=== PATIENT | male | born 1960 | race Caucasian/White ===

== ENCOUNTER → 2020-05-25 09:05 | Outpatient (CLI) | payer MEDICARE, MEDICAID, SELFPAY ==
--- NOTE | ~2020-05-25 | XR_ITS ---
EXAMINATION: XR shoulder LT min 2V DATE: 05/25/2020 10:27 INDICATION: Bilateral shoulder pain TECHNIQUE: AP internally and externally rotated, AP oblique externally rotated and axillary views of the left shoulder were obtained. COMPARISON: None FINDINGS: Normal alignment. No fracture.Mild glenohumeral and moderate acromioclavicular osteoarthritis. Moder ate lower cervical spondylosis. Soft tissues are unremarkable. IMPRESSION: Mild glenohumeral and moderate acromioclavicular osteoarthritis. Reviewed, dictated and finalized at location B.
--- NOTE | ~2020-05-25 | XR_ITS ---
EXAMINATION: XR shoulder RT min 2V DATE: 05/25/2020 10:27 INDICATION: Right shoulder pain TECHNIQUE: AP internally and externally rotated, AP oblique externally rotated and axillary views of the right shoulder were obtained. COMPARISON: None FINDINGS: Normal alignment. No fracture.Mild glenohumeral and mild to moderate acromioclavicular osteoarthriti s. Moderate cervical spondylosis. Soft tissues are unremarkable. Right lung is clear. IMPRESSION: Mild right glenohumeral and mild to moderate acromioclavicular osteoarthritis. Reviewed, dictated and finalized at location B.
--- NOTE | ~2020-05-25 | MR_ITS ---
EXAMINATION: MR cervical spine wo con DATE: 05/25/2020 09:54 INDICATION: Cervical radiculopathy. TECHNIQUE: Magnetic resonance imaging (MRI) of the cervical spine was performed without intravenous c ontrast. Sequences included sagittal T2-weighted FSE, sagittal STIR FSE, sagittal T1-weighted FSE, ax ial MERGE, and axial T2-weighted FSE. COMPARISON: None FINDINGS: There is 2 mm retrolisthesis of C3 on C4, C4 on C5, C5 on C6, and C6 on C7. There is mild k yphosis of cervical spine. Vertebral body heights are normal. There is mildly decreased disc height a t C3-C4 and moderately decreased disc height from C4-C5 through C6-C7. The spinal cord signal intensi ty is normal. The following disc levels are specifically discussed: C2-C3: There is a right central extrusion. There is no uncovertebral joint osteoarthritis. There is m ild bilateral facet joint osteoarthritis. There is no neural foraminal stenosis. There is mild centra l canal stenosis with ventral indentation of the spinal cord. C3-C4: The disc is bulging. There is mild right and severe left uncovertebral joint osteoarthritis. T here is mild bilateral facet joint osteoarthritis. There is mild right and moderate left neural graciela inal stenosis. There is mild central canal stenosis with ventral indentation of the spinal cord. C4-C5: The disc is bulging. There is moderate bilateral uncovertebral joint osteoarthritis. There is mild right and moderate left facet joint osteoarthritis. There is moderate and mild left neural graciela inal stenosis. There is mild central canal stenosis with ventral indentation of the spinal cord. C5-C6: The disc is bulging. There is severe bilateral uncovertebral joint osteoarthritis. There is mi ld bilateral facet joint osteoarthritis. There is moderate and mild left neural foraminal stenosis. T here is mild central canal stenosis with ventral indentation of spinal cord. C6-C7: The disc is bulging. There is severe bilateral uncovertebral joint osteoarthritis. There is mi ld right and moderate left facet joint osteoarthritis. There is mild right and moderate left neural f oraminal stenosis. There is mild central canal stenosis. C7-T1: The disc does not extend beyond the endplate margin. There is no uncovertebral joint osteoarth ritis. There is moderate bilateral facet joint osteoarthritis. There is no neural foraminal stenosis. There is no central canal stenosis. IMPRESSION: 1. Moderate cervical spondylosis. Reviewed, dictated and finalized at location A.
== END ==
PROVIDERS: PCP Family Medicine; Visit Provider Nurse Practitioner Adult Health
DX: M47.22 Other spondylosis with radiculopathy, cervical region (principal); M19.011 Primary osteoarthritis, right shoulder; M19.012 Primary osteoarthritis, left shoulder
CPT/HCPCS: 72141; 73030

== ENCOUNTER 2020-12-12 12:19 | Outpatient (CLI) | payer MEDICARE, SELFPAY ==
--- NOTE | ~2020-12-12 | CT_ITS ---
EXAMINATION: CT lung screening DATE: 12/12/2020 12:39 INDICATION: Personal history of tobacco dependence. TECHNIQUE: Computed tomography (CT) of the chest was performed without intravenous contrast. The dose -length product was 325.28 mGy-cm. Automated exposure control and iterative reconstruction technique were employed. COMPARISON: CT dated 05/26/2018 FINDINGS: Heart size normal. No significant pleural or pericardial effusion. No thoracic lymphadenopa thy. There is atherosclerosis of the aorta and coronary arteries. There is gynecomastia. The upper ab domen is unremarkable. There is a 3 mm right upper lobe nodule, image 34. There are a few additional small 2-3 mm nodules in the upper lobes. There is a 3 mm left lower lobe nodule, image 82. There are calcified granulomas of the left lower thorax. Mild thoracic spondylosis. IMPRESSION: 1. Lung-RADS category 2: Benign appearance or behavior. Continue annual screening with noncontrast lo w-dose chest CT in 12 months. Reviewed, dictated and finalized at location A. IMPRESSION: 1. Lung-RADS category 2: Benign appearance or behavior. Continue annual screeni ng with noncontrast low-dose chest CT in 12 months.
== END 2020-12-12 12:20 | disposition home or self-care (01) ==
PROVIDERS: PCP Family Medicine; Visit Provider Physician Assistant
DX: Z12.2 Encounter for screening for malignant neoplasm of respiratory organs (principal); Z87.891 Personal history of nicotine dependence
CPT/HCPCS: 71271

== ENCOUNTER → 2022-01-14 08:00 | Outpatient (CLI) | payer MEDICARE, SELFPAY ==
--- NOTE | ~2022-01-14 | CT_ITS ---
EXAMINATION: CT lung screening DATE: 01/14/2022 08:19 INDICATION: Personal history of tobacco dependence. Lung cancer screening. TECHNIQUE: Computed tomography (CT) of the chest was performed without intravenous contrast. Automate d exposure control and iterative reconstruction technique were employed. Exam dose: 363.62 mGy-cm to ata exam DLP. COMPARISON: 12/12/2020 CT lung screening FINDINGS: 3 mm anterior segment right upper lobe pulmonary nodule (series 4 image 50), stable since 12/12/2020 Stable approximately 2.8 mm left lower lobe pulmonary nodule (series 4 image 87), unchanged since 11/21. Occasional calcified pulmonary granulomas.. No new or developing pulmonary mass lesion is evident. No pulmonary infiltrate or consolidation. Calcified left hilar nodes and a calcified hepatic granuloma, consistent with old granulomatous disea se. Very prominent coronary artery calcifications. Normal heart size. No thoracic aortic aneurysm. No hilar or mediastinal mass lesion or lymphadenopathy. Normal morphology of the included portions of the adrenal glands. Minimal bilateral gynecomastia. Severe degenerative disc disease at included C6-7. Minimal degenerative change of the thoracic spine. No suspicious osteolytic or osteoblastic lesions. IMPRESSION: Lung-RADS category 2: Benign appearance or behavior. Recommendation: Annual CT lung screening Reviewed, dictated and finalized at Location [facility]. Reviewed, dictated and finalized at location A.
== END ==
PROVIDERS: PCP Family Medicine; Visit Provider Family Medicine
DX: Z12.2 Encounter for screening for malignant neoplasm of respiratory organs (principal); Z87.891 Personal history of nicotine dependence
CPT/HCPCS: 71271

== ENCOUNTER 2022-10-08 10:35 | Emergency (ER) | payer MEDICARE, MEDICAID, SELFPAY ==
--- NOTE | ~2022-10-08 | XR_ITS ---
XR hip LT min 3V w AP pelvis DATE: 10/08/2022 12:11 INDICATION: Chronic left hip pain, increased 5 days ago. No injury. TECHNIQUE: AP pelvis. AP, lateral and crosstable lateral views of left hip COMPARISON: None FINDINGS: Incidentally noted is a prominent amount fecal material in the rectum and particularly the right colon. There is osteopenia. No pelvic fracture or bone destruction is evident. Normal alignment at the pubic symphysis and sacroi liac joints. No fracture, dislocation, avascular necrosis or bone destruction of the left hip. Mild left hip osteo arthritis. IMPRESSION: Mild left hip osteoid arthritis Osteopenia Reviewed, dictated and finalized at location L. [facility] [employer]
[2022-10-08 10:57] VITALS: BP 135/84; PULSE 86; RESP 18; TEMP 36.3; O2SAT 98
[2022-10-08] MEDS: MORPHINE SULFATE INJ (*CRX) 10 MG/ML AMP 4 MG IM (11:31)
--- NOTE | 2022-10-08 12:00 | PC.NURSE ---
Pt to xray.
[2022-10-08] MEDS: predniSONE 20 MG TABLET 40 MG PO (12:31)
--- NOTE | 2022-10-08 16:06 | ED.LOWEXIN ---
HPI - Extremity Injury (Lower) General Chief Complaint: Extremity Injury, Lower Stated Complaint: left hip pain Time Seen by Provider: 10/08/22 11:14 History of Present Illness HPI Narrative: Patient has chronic pain in his left hip and over the last week or so the pain has been increased, to the point where his usual oral medications are not helping, he called his primary care doctor as well as his pain doctor and they both told him to just go to the ER if he is unable to get in sooner. He states that the pain feels like the usual pain that he has in his left hip, where it seems to go up his back and down through the stump, however worse than usual. No new numbness or weakness. No skin changes. No fevers or chills Related Data Allergies Allergy/AdvReac Type Severity Reaction Status Date / Time No Known Allergies Allergy Verified 10/08/22 11:31 Review of Systems Review of Systems: CONST: No fever. HEENT: No sore throat C/V: No chest pain RESP: No cough GI: No nausea vomiting : No dysuria. M/S: Left hip pain SKIN: No rash. 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 PVD (peripheral vascular disease) Toe infection Type 2 diabetes mellitus with hyperglycemia, with long-term current use of insulin Surgical History Surgical History S/P amputation of limb Status post above-knee amputation of left lower extremity Status post amputation of toe Family History Family History Father Family history of diabetes mellitus in first degree relative Hypertension Family history of coronary artery disease Mother Family history of diabetes mellitus in first degree relative Sibling Family history of diabetes mellitus in first degree relative Other Diabetes mellitus Family history of cardiovascular disease Social History Social History Smoking packs per day: 1.5 Smoking cigarettes per day: 30.0 Years smoked: 47 Smoking pack-years: 70.50 Smoking status: Current every day smoker Tobacco type: cigarettes Second hand tobacco smoke exposure: No Alcohol intake: never Substance use: never Substance use type: does not use Additional living arrangements comments: girlfriend Gender identity (if verbalized by the patient): Male Sexual Orientation (if Verbalized by the Patient): Straight or Heterosexual Exam Narrative: EXAMINATION OF ORGAN SYSTEMS/BODY AREAS: Constitutional: Vital signs per nursing GENERAL: Nontoxic appearing but does appear to be having some pain HEAD: Normal with no signs of head trauma. EYES: EOMI, conjunctiva normal ENT: Hearing grossly intact LUNGS: Nonlabored breathing. HEART: [Regular rate and rhythm] ABD: [Soft], non[tender to palpation] EXT: Normal range of motion painless passive range of motion of the left hip, no obvious swelling or deformity SKIN: [No rashes or lesions, no warmth or erythema.] NEURO: [Alert and oriented x 3. No gross focal sensory or strength deficits.] PSYCH: Normal affect Course Vital Signs Vital signs: Vital Signs Temperature 97.4 F L 10/08/22 10:57 Pulse Rate 86 10/08/22 10:57 Respiratory Rate 18 10/08/22 10:57 Blood Pressure 135/84 10/08/22 10:57 Pulse Oximetry 98 10/08/22 10:57 Oxygen Delivery Room Air 10/08/22 10:57 Temperature 97.4 F L 10/08/22 10:57 Pulse Rate 86 10/08/22 10:57 Respiratory Rate 18 10/08/22 10:57 Blood Pressure 135/84 10/08/22 10:57 Pulse Oximetry 98 10/08/22 10:57 Oxygen Delivery Room Air 10/08/22 10:57
== END 2022-10-08 12:38 | disposition home or self-care (01) ==
PROVIDERS: Emergency Provider Emergency Medicine; PCP Family Medicine
DX: M25.552 Pain in left hip (principal); G89.29 Other chronic pain; I10 Essential (primary) hypertension; E78.5 Hyperlipidemia, unspecified; E03.9 Hypothyroidism, unspecified; E11.51 Type 2 diabetes mellitus with diabetic peripheral angiopathy without gangrene; I73.9 Peripheral vascular disease, unspecified; Z79.4 Long term (current) use of insulin; Z89.612 Acquired absence of left leg above knee; F17.210 Nicotine dependence, cigarettes, uncomplicated; M16.12 Unilateral primary osteoarthritis, left hip; M85.88 Other specified disorders of bone density and structure, other site
CPT/HCPCS: 73502; 96372; 99283; J2270; J7512

== ENCOUNTER 2022-10-12 00:55 | Emergency (ER) | payer MEDICARE, MEDICAID, SELFPAY ==
[2022-10-12] VITALS (7 sets, daily range): BP systolic 127–160; BP diastolic 81–100; PULSE 95–102; RESP 16–18; TEMP 36.7; O2SAT 97–100
[2022-10-12] MEDS: HYDROmorphone HCL INJ (*CRX) 1 MG/ML SYR IM (03:07)
[2022-10-12] MEDS: KETOROLAC 30 MG/ML VIAL (*BKC) IM (03:07)
[2022-10-12] MEDS: ORPHENADRINE CITRATE 100 MG TABLET.ER PO (03:07)
--- NOTE | 2022-10-12 03:09 | ED.GENADULT ---
HPI - General Adult General Chief complaint: Extremity Problem,Nontraumatic Stated complaint: Left hip pain Time Seen by Provider: 10/12/22 02:54 History of Present Illness HPI narrative: Patient is a 62-year-old gentleman who presents the emergency department with chief complaint of left hip pain. The patient reports that he was seen in the emergency department a few days ago started on steroids and also has been taking his [place]. The patient reports he has a pain management doctor that writes his [place] and reports that has had no fever no trauma. The patient had plain film x-rays that showed no evidence of fracture but did show evidence of arthritis. Related Data Allergies Allergy/AdvReac Type Severity Reaction Status Date / Time No Known Allergies Allergy Verified 10/12/22 02:56 Review of Systems Review of Systems: A 10 system review of systems was completed on the patient and is negative except for what is stated in the HPI. Nursing and ancillary documentation was reviewed. 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 PVD (peripheral vascular disease) Toe infection Type 2 diabetes mellitus with hyperglycemia, with long-term current use of insulin Surgical History Surgical History S/P amputation of limb Status post above-knee amputation of left lower extremity Status post amputation of toe Family History Family History Father Family history of diabetes mellitus in first degree relative Hypertension Family history of coronary artery disease Mother Family history of diabetes mellitus in first degree relative Sibling Family history of diabetes mellitus in first degree relative Other Diabetes mellitus Family history of cardiovascular disease Social History Social History Smoking packs per day: 1.5 Smoking cigarettes per day: 30.0 Years smoked: 47 Smoking pack-years: 70.50 Smoking status: Current every day smoker Tobacco type: cigarettes Second hand tobacco smoke exposure: No Alcohol intake: never Substance use: never Substance use type: does not use Living arrangements: with family Additional living arrangements comments: girlfriend Occupation/Education: other Gender identity (if verbalized by the patient): Male Sexual Orientation (if Verbalized by the Patient): Straight or Heterosexual Exam Narrative: GENERAL: Well-appearing, well-nourished, and in no acute distress. HEAD: Normocephalic, atraumatic. EYES: PERRLA and EOMI. ENT: Nares clear, no rhinorrhea or epistaxis. Mucous membranes moist. NECK: Supple. CHEST: Clear to auscultation. No respiratory distress. HEART: Regular rate and rhythm. No murmur heard. Normal peripheral pulses. ABDOMEN: Soft, nontender, nondistended, normal active bowel sounds. EXTREMITIES: Normal range of motion. No edema. There is a above-knee amputation of the left lower extremity. There is tenderness to palpation in the left SI joint SKIN: Warm, dry, no rash. NEURO: No focal deficits. Alert and oriented x3. PSYCH: Normal mood and affect. Course Vital Signs Vital signs: Vital Signs Temperature 36.7 C 10/12/22 01:00 Pulse Rate 102 H 10/12/22 01:00 Respiratory Rate 18 10/12/22 01:00 Blood Pressure 127/88 10/12/22 01:00 Pulse Oximetry 97 10/12/22 01:00 Oxygen Delivery Room Air 10/12/22 01:00 Temperature 36.7 C 10/12/22 01:00 Pulse Rate 102 H 10/12/22 01:00 Respiratory Rate 18 10/12/22 01:00 Blood Pressure 153/100 H 10/12/22 03:01 Pulse Oximetry 97 10/12/22 03:01
== END 2022-10-12 04:27 | disposition home or self-care (01) ==
PROVIDERS: Emergency Provider Emergency Medicine; PCP Family Medicine
DX: M54.32 Sciatica, left side (principal); M16.12 Unilateral primary osteoarthritis, left hip; I10 Essential (primary) hypertension; E78.5 Hyperlipidemia, unspecified; E11.51 Type 2 diabetes mellitus with diabetic peripheral angiopathy without gangrene; I73.9 Peripheral vascular disease, unspecified; E03.9 Hypothyroidism, unspecified; Z89.612 Acquired absence of left leg above knee; Z89.429 Acquired absence of other toe(s), unspecified side; F17.210 Nicotine dependence, cigarettes, uncomplicated; Z79.4 Long term (current) use of insulin; Z79.85 Long-term (current) use of injectable non-insulin antidiabetic drugs; Z79.82 Long term (current) use of aspirin
CPT/HCPCS: 96372; 99284; A9270; J1170; J1885

== ENCOUNTER → 2023-01-16 07:36 | Outpatient (CLI) | payer MEDICARE, SELFPAY ==
--- NOTE | ~2023-01-16 | CT_ITS ---
CT Scan of the Chest without Contrast: Clinical Indication: Lung cancer screening, personal history of tobacco dependence Technique: Contiguous sections were acquired throughout the chest without intravenous contrast. Dose reduction technique was used on this scan by utilizing automated exposure control and iterative recon struction technique. The dose-length product (DLP) was 272.09 mGy-cm. COMPARISON: 01/14/2022, 12/12/2020 Findings: There is no evidence of any significant mediastinal, hilar or axillary lymphadenopathy. Calcified lef t hilar lymph nodes are present. Extensive coronary artery calcifications are present. There is no evidence of pleural or pericardial effusion. Several scattered 2 mm pulmonary nodules are unchanged. Calcified granulomas are noted. Images through the upper abdomen reveal no abnormalities. Impression: Lung RADS 2: Benign appearance. 12 month follow-up screening CT advised. Reviewed, dictated and finalized at [facility]. Impression: Lung RADS 2: Benign appearance. 12 month follow-up screening CT advised.
== END ==
PROVIDERS: PCP Family Medicine; Visit Provider Physician Assistant
DX: Z12.2 Encounter for screening for malignant neoplasm of respiratory organs (principal); F17.210 Nicotine dependence, cigarettes, uncomplicated
CPT/HCPCS: 71271

== ENCOUNTER 2023-05-06 04:07 | Day surgery (SDC) | payer MEDICARE, MEDICAID, SELFPAY ==
[2023-04-22 14:03] VITALS: BMI 32.5
[2023-05-06 07:18] VITALS: BP 134/94; PULSE 63; RESP 18; TEMP 36.1; O2SAT 99
--- NOTE | 2023-05-06 07:20 | WPDANESEPPF ---
Anes - Initial Pre Proc Eval Procedure: Operation Date: 05/06/23 08:15 Proposed Procedures p Screening Colonoscopy - Jose Guevara MD Date/Time: 05/06/23 07:20 Surgeon: Jose Guevara MD Pre Op Diagnosis: neoplasm screening Patient Data Age: 62 Gender: M Height: 1.88 m Weight: 115 kg Allergies Allergy/AdvReac Type Severity Reaction Status Date / Time No Known Allergies Allergy Verified 05/06/23 07:13 Home Medications Medication Instructions Recorded Confirmed Type hydrocodone 5 mg-acetaminophen 325 1 tablet PO Q8H PRN pain #60 tabs 04/27/20 04/22/23 Rx mg tablet blood sugar diagnostic #300 ea 04/12/21 04/22/23 Rx insulin glargine 100 unit/mL See Rx Instructions subcut 05/24/21 04/22/23 Rx subcutaneous solution (Lantus .COMPLEX #10 mL U-100 Insulin) insulin lispro 100 unit/mL 1 sliding scale dose subcut 05/24/21 04/22/23 Rx subcutaneous solution (Humalog USEASDIRECTD #10 mL U-100 Insulin) sertraline 100 mg tablet See Rx Instructions .Route 07/04/22 04/22/23 Rx .COMPLEX #90 tabs blood sugar diagnostic (Blood #300 ea 09/16/22 04/22/23 Rx Glucose Test strips) dulaglutide 1.5 mg/0.5 mL 1.5 mg (0.5 mL) subcut WEEKLY #6 mL 10/06/22 04/22/23 Rx subcutaneous pen injector (Trulicity) diclofenac potassium 50 mg tablet See Rx Instructions .Route 11/20/22 04/22/23 Rx .COMPLEX #30 tabs orphenadrine citrate 100 mg 100 mg PO Q12H #30 tabs 12/17/22 04/22/23 Rx tablet,extended release amlodipine 10 mg tablet See Rx Instructions .Route 12/23/22 04/22/23 Rx .COMPLEX #100 tabs atorvastatin 80 mg tablet See Rx Instructions .Route 12/23/22 04/22/23 Rx .COMPLEX #100 tabs hydrochlorothiazide 25 mg tablet See Rx Instructions .Route 12/23/22 04/22/23 Rx .COMPLEX #100 tabs lisinopril 30 mg tablet See Rx Instructions .Route 12/23/22 04/22/23 Rx .COMPLEX #200 tabs sodium,potassium,mag sulfates 17.5 See Rx Instructions PO .COMPLEX 01/23/23 04/22/23 Rx gram-3.13 gram-1.6 gram oral soln #354 mL (Suprep Bowel Prep Kit) empagliflozin 25 mg tablet 25 mg PO DAILY 02/11/23 04/22/23 History (Jardiance) levothyroxine 112 mcg tablet See Rx Instructions .Route 03/18/23 04/22/23 Rx .COMPLEX #200 tabs Patient hx anesthesia problems: none Family hx anesthesia problems: none Results Review: All pre-operative results and documents have been reviewed as part of the pre-operative evaluation. 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 PVD (peripheral vascular disease) Toe infection Type 2 diabetes mellitus with hyperglycemia, with long-term current use of insulin Surgical History Surgical History S/P amputation of limb Status post above-knee amputation of left lower extremity Status post amputation of toe Family History Family History Father Family history of diabetes mellitus in first degree relative Hypertension Family history of coronary artery disease Mother Family history of diabetes mellitus in first degree relative Sibling Family history of diabetes mellitus in first degree relative Other Diabetes mellitus Family history of cardiovascular disease Social History Social History Smoking packs per day: 1.5 Smoking cigarettes per day: 30.0 Years smoked: 50 Smoking pack-years: 75.00 Smoking status: Current every day smoker Tobacco type: cigarettes Second hand tobacco smoke exposure: No Alcohol intake: never Substance use: current Substance use type: marijuana Living arrangements: with family Daron mead
--- NOTE | 2023-05-06 07:31 | PM.HPGS ---
History of Present Illness History of Present Illness Consent: Risks, benefits, and alternatives have been discussed and questions answered. Patient agrees to proceed with procedure. Chief complaint: neoplasm screening Narrative: Jose Mckinney Jr. is a 62 year old male Presents for screening colonoscopy. Patient's current weight appetite and bowel movements are normal. Patient denies abdominal pain. He has had no bleeding. Family history noncontributory. Patient states he had a previous colonoscopy more than 10 years ago and is advised to return today for screening. Past medical history is significant for diabetes. He has a prior left AKA. Review of Systems Review of Systems: Review of systems noncontributory. [facility] Past Medical History Medical History Acute kidney injury Chronic pain of both shoulders Chronic, continuous use of opioids Essential hypertension HLD (hyperlipidemia) Hypothyroidism Leukocytosis longterm (current) use of insulin PVD (peripheral vascular disease) Toe infection Type 2 diabetes mellitus with hyperglycemia, with long-term current use of insulin Surgical History Surgical History S/P amputation of limb Status post above-knee amputation of left lower extremity Status post amputation of toe Family History Family History Father Family history of diabetes mellitus in first degree relative Hypertension Family history of coronary artery disease Mother Family history of diabetes mellitus in first degree relative Sibling Family history of diabetes mellitus in first degree relative Other Diabetes mellitus Family history of cardiovascular disease Social History Social History Smoking packs per day: 1.5 Smoking cigarettes per day: 30.0 Years smoked: 50 Smoking pack-years: 75.00 Smoking status: Current every day smoker Tobacco type: cigarettes Second hand tobacco smoke exposure: No Alcohol intake: never Substance use: current Substance use type: marijuana Living arrangements: with family Additional living arrangements comments: girlfriend Occupation/Education: other Gender identity (if verbalized by the patient): Male Sexual Orientation (if Verbalized by the Patient): Straight or Heterosexual Spiritual care concerns: No Meds Home Medications and Allergies Home Medications Medication Instructions Recorded Confirmed Type hydrocodone 5 mg-acetaminophen 325 1 tablet PO Q8H PRN pain #60 tabs 08/06/20 08/01/23 Rx mg tablet blood sugar diagnostic #300 ea 04/12/21 04/22/23 Rx insulin glargine 100 unit/mL See Rx Instructions subcut 05/24/21 04/22/23 Rx subcutaneous solution (Lantus .COMPLEX #10 mL U-100 Insulin) insulin lispro 100 unit/mL 1 sliding scale dose subcut 05/24/21 04/22/23 Rx subcutaneous solution (Humalog USEASDIRECTD #10 mL U-100 Insulin) sertraline 100 mg tablet See Rx Instructions .Route 07/04/22 04/22/23 Rx .COMPLEX #90 tabs blood sugar diagnostic (Blood #300 ea 09/16/22 04/22/23 Rx Glucose Test strips) dulaglutide 1.5 mg/0.5 mL 1.5 mg (0.5 mL) subcut WEEKLY #6 mL 10/06/22 04/22/23 Rx subcutaneous pen injector (Trulicity) diclofenac potassium 50 mg tablet See Rx Instructions .Route 11/20/22 04/22/23 Rx .COMPLEX #30 tabs orphenadrine citrate 100 mg 100 mg PO Q12H #30 tabs 12/17/22 04/22/23 Rx tablet,extended release amlodipine 10 mg tablet See Rx Instructions .Route 12/23/22 04/22/23 Rx .COMPLEX #100 tabs atorvastatin 80 mg tablet See Rx Instructions .Route 12/23/22 04/22/23 Rx .COMPLEX #100 tabs hydrochlorothiazide 25 mg tablet See Rx Instructions .Route 12/23/22 04/22/23 Rx .COMPLEX #100 tabs lisinopril 30 mg tablet See Rx Instructions .Route
[2023-05-06] MEDS: LACTATED RINGERS 1,000 ML 150 ML IV CONT (07:32)
[2023-05-06 07:35] LABS: Glucose Point of Care 212 mg/dl (65-105)
[2023-05-06 07:54] VITALS: BP 91/50; PULSE 77; RESP 18; O2SAT 99
[2023-05-06 08:03] LABS: Glucose Point of Care 222 mg/dl (65-105)
[2023-05-06 08:04] VITALS: BP 110/64; PULSE 80; RESP 16; O2SAT 98
[2023-05-06 08:14] VITALS: BP 138/74; PULSE 82; RESP 17; O2SAT 99
== END 2023-05-06 08:23 | disposition home or self-care (01) ==
PROVIDERS: PCP Family Medicine; Visit Provider Internal Medicine Gastroenterology
PROC: 0DJD8ZZ Inspection of Lower Intestinal Tract, Via Natural or Artificial Opening Endoscopic (ICD-10-PCS; CPT 45378; principal; 2023-05-06 08:15)
DX: Z12.11 Encounter for screening for malignant neoplasm of colon (principal); Z53.8 Procedure and treatment not carried out for other reasons; E11.51 Type 2 diabetes mellitus with diabetic peripheral angiopathy without gangrene; I10 Essential (primary) hypertension; E78.5 Hyperlipidemia, unspecified; E03.9 Hypothyroidism, unspecified; Z79.4 Long term (current) use of insulin; Z79.891 Long term (current) use of opiate analgesic; Z89.612 Acquired absence of left leg above knee; F17.210 Nicotine dependence, cigarettes, uncomplicated; F12.90 Cannabis use, unspecified, uncomplicated; Z79.899 Other long term (current) drug therapy; Z79.84 Long term (current) use of oral hypoglycemic drugs
CPT/HCPCS: G0121; 82948; J2704; J7120

== ENCOUNTER 2024-01-20 15:47 | Outpatient (CLI) | payer MEDICARE, MEDICAID, SELFPAY ==
--- NOTE | ~2024-01-20 | XR_ITS ---
XR chest 2V 01/20/2024 16:02 Indication: Shortness of breath and cough Procedure: 2 view chest Comparison: No prior studies for comparison. Findings: Borderline heart size. Mild interstitial edema. Small pleural effusions. No pneumothorax. N o acute osseous abnormality. Impression: 1: Mild interstitial edema. 2: Small pleural effusions. Reviewed, dictated and finalized at location B. Impression: 1: Mild interstitial edema. 2: Small pleural effusions.
== END 2024-01-20 15:48 ==
PROVIDERS: PCP Family Medicine; Visit Provider Registered Nurse
DX: R06.02 Shortness of breath (principal); R05.9 Cough, unspecified; J90 Pleural effusion, not elsewhere classified
CPT/HCPCS: 71046

== ENCOUNTER 2024-02-03 09:18 | Outpatient (RCR) | payer MEDICARE, MEDICAID, SELFPAY ==
[2024-02-03 09:22] VITALS: BMI 30.6
[2024-02-03 10:10] VITALS: BMI 30.6
== END 2024-04-19 09:35 | disposition home or self-care (01) ==
LOC: ANHDMC 09:18
PROVIDERS: PCP Family Medicine; Visit Provider Internal Medicine
DX: E11.65 Type 2 diabetes mellitus with hyperglycemia (principal); E03.9 Hypothyroidism, unspecified; E78.5 Hyperlipidemia, unspecified; Z71.3 Dietary counseling and surveillance
CPT/HCPCS: 97802

== ENCOUNTER 2024-03-31 21:29 | Inpatient (IN) | payer MEDICARE, MEDICAID, SELFPAY ==
--- NOTE | ~2024-03-31 | XR_ITS ---
AP and lateral views of the right tibia/fibula Clinical History: Pain and swelling Findings: No acute fracture or dislocation is seen. There is severe degenerative change at the midfoo t/hindfoot articulations, with joint space narrowing, sclerosis, and probable malalignment and possib le early fragmentation. Tibiotalar joint is intact. Knee joint is intact.. Soft tissues are unremarka ble. Impression: Severe degenerative changes at the midfoot and hindfoot articulations, suggestive of Charcot foot. Reviewed, dictated and finalized at location M. Impression: Severe degenerative changes at the midfoot and hindfoot articulations, suggesti ve of Charcot foot.
--- NOTE | ~2024-03-31 | XR_ITS ---
Upright portable view of the abdomen Clinical history: NG tube placement Findings: NG tube is present, side port just above the GE junction. Bowel gas pattern is nonspecific. No evidence for obstruction or free air. No abnormal mass lesion or calcification is seen. Osseous s tructures are intact. Impression: NG tube side-port is just above the GE junction. Further advancement into the stomach advised. Reviewed, dictated and finalized at location M. Impression: NG tube side-port is just above the GE junction. Further advancement into the s tomach advised.
--- NOTE | ~2024-03-31 | US_ITS ---
EXAMINATION: US renal BI DATE: 04/01/2024 16:14 INDICATION: Elevated creatinine TECHNIQUE: Multiple ultrasound grayscale images of the kidneys were obtained. COMPARISON: None. FINDINGS: The right kidney measures 11.3 x 5.2 x 5 point cm. The left kidney measures 11.2 x 5.4 x 6.0 cm. The kidneys demonstrate normal echogenicity. There is no hydronephrosis in either kidney. No stones iden tified. There is a Hernandez catheter within the partially decompressed bladder which limits evaluation. There is some mild diffuse wall thickening of the bladder. IMPRESSION: 1. Normal kidneys without hydronephrosis. 2. Mild diffuse bladder wall thickening which may be due to partially decompressed state but could al so be seen with cystitis either acute or chronic. Reviewed, dictated and finalized at location A. IMPRESSION: 1. Normal kidneys without hydronephrosis. 2. Mild diffuse bladder wall thickening which may be due to partially decompres sed state but could also be seen with cystitis either acute or chronic.
--- NOTE | ~2024-03-31 | XR_ITS ---
Portable chest x-ray Comparison: 01/20/2024 Clinical History: Respiratory failure Findings: Endotracheal tube is in satisfactory position. Possible focal hazy opacities the periphera l left midlung. Right lung clear. Cardiomediastinal silhouette is stable. Bones and soft tissues are unremarkable. Impression: Questionable focal hazy opacities at the peripheral left midlung, possibly focal pneumonitis. ET tube in place. Reviewed, dictated and finalized at location . Impression: Questionable focal hazy opacities at the peripheral left midlung, possibly foca l pneumonitis. ET tube in place.
--- NOTE | ~2024-03-31 | US_ITS ---
EXAMINATION: US venous doppler LE RT DATE: 04/01/2024 16:08 INDICATION: Right lower limb swelling and erythema TECHNIQUE: Grayscale ultrasound images without and with compression and Doppler ultrasound images of the right lower extremity veins were obtained. COMPARISON: None. FINDINGS: The visualized portions of right common femoral vein, profunda (deep) femoral vein, femoral vein, pop liteal vein, peroneal trunk, posterior tibial veins, peroneal veins and greater saphenous vein outflo w are patent. IMPRESSION: 1. No deep venous thrombosis in the right lower limb. Reviewed, dictated and finalized at location A.
--- NOTE | ~2024-03-31 | XR_ITS ---
Portable chest x-ray Comparison: 04/01/2024 Clinical History: Respiratory failure Findings: Endotracheal tube and NG tube are in satisfactory positions. Lungs are clear, without foca l consolidation or pleural effusion. Cardiomediastinal silhouette is stable. Bones and soft tissues are unremarkable. Impression: Clear lungs. Support tubes, as above. Reviewed, dictated and finalized at location . Impression: Clear lungs. Support tubes, as above.
--- NOTE | ~2024-03-31 | XR_ITS ---
EXAMINATION: XR chest 1V portable DATE: 04/04/2024 05:44 INDICATION: Respiratory failure TECHNIQUE: frontal view of the chest was obtained. COMPARISON: Chest radiograph dated 04/03/2024 FINDINGS: Small calcified nodule at the left lower lung zone and calcified left hilar lymph nodes consistent wi th old granulomatous disease. No other airspace opacities, pulmonary edema, pleural effusion or pneum othorax. The cardiomediastinal silhouette is normal. IMPRESSION: 1. No acute cardiopulmonary disease. Reviewed, dictated and finalized at location A.
--- NOTE | ~2024-03-31 | XR_ITS ---
EXAMINATION: XR abdomen gastric tube rechec DATE: 04/01/2024 16:19 INDICATION: Orogastric tube placement. TECHNIQUE: An upright view of the abdomen was obtained. COMPARISON: Abdomen radiograph 04/01/2024 FINDINGS: The lower abdomen is excluded. The orogastric tube tip is in the stomach. IMPRESSION: 1. Orogastric tube tip in the stomach. Reviewed, dictated and finalized at location E.
--- NOTE | ~2024-03-31 | XR_ITS ---
EXAMINATION: XR chest 1V portable DATE: 04/03/2024 05:39 INDICATION: Respiratory failure TECHNIQUE: frontal view of the chest was obtained. COMPARISON: Chest radiograph dated 04/02/2024 FINDINGS: Mild increased interstitial pattern in the bilateral lower lungs with a few subtle peripheral Karena B-lines at the right lung base. Additional subtle opacities in the left lower lung zone which could r epresent additional pulmonary edema or pneumonia. No pleural effusion or pneumothorax. The cardiomedi astinal silhouette is normal. IMPRESSION: 1. Mild increased opacity at the bilateral lower lung zones most likely pulmonary edema with differen tial including pneumonia. Reviewed, dictated and finalized at location A. IMPRESSION: 1. Mild increased opacity at the bilateral lower lung zones most likely pulmona ry edema with differential including pneumonia.
[2024-03-31 21:34] VITALS: BP 117/59; PULSE 77; RESP 16; TEMP 36.6; O2SAT 99
--- NOTE | 2024-03-31 23:46 | ED.EXTPRO ---
HPI - Extremity Problem General Chief complaint: Extremity Problem,Nontraumatic <Mitch Osei PA-C - Last Filed: 04/01/24 02:11> Stated complaint: R leg pain <HI Albarran Last Filed: 04/01/24 02:11> Time Seen by Provider: 03/31/24 23:18 <HI Albarran Last Filed: 04/01/24 02:11> Source: patient <HI Albarran Filed: 04/01/24 02:11> Mode of arrival: ambulatory <HI Albarran Last Filed: 04/01/24 02:11> Limitations: no limitations <HI Albarran Last Filed: 04/01/24 02:11> History of Present Illness HPI Narrative: This is a 63-year-old male With PMH of insulin-dependent diabetes, HLD, HTN, CKD, left AKA, medication noncompliance who presents to the ED with chief complaint of right lower extremity redness and swelling for the past 1-2 weeks. patient reports that he has not been taking his insulin as prescribed. He has not been watching his diet either. Reports that the leg specific right foot is most painful. Denies fevers, chills, nausea, vomiting, abdominal pain, chest pain, cough shortness of breath, neck pain, syncope. <HI Albarran Last Filed: 04/01/24 02:11> Related Data Home medications: Home Medications Medication Instructions Recorded Confirmed furosemide 80 mg tablet 80 mg PO QAM 02/26/24 hydroxyzine HCl 50 mg tablet 50 mg PO QHS 02/26/24 sertraline 100 mg tablet 100 mg PO DAILY 02/26/24 <HI Albarran Last Filed: 04/01/24 02:11> Allergies/Adverse reactions: Allergies Allergy/AdvReac Type Severity Reaction Status Date / Time No Known Allergies Allergy Verified 03/31/24 21:31 <HI Albarran Last Filed: 04/01/24 02:11> Review of Systems Review of Systems: All systems as dictated in HPI <Mitch Osei PA-C - Last Filed: 04/01/24 02:11> [facility] Past Medical History Medical History: Medical History Acute kidney injury Chronic pain of both shoulders Chronic, continuous use of opioids Essential hypertension HLD (hyperlipidemia) Hypothyroidism 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 PVD (peripheral vascular disease) Toe infection Type 2 diabetes mellitus with hyperglycemia, with long-term current use of insulin <Mitch Osei PA-C - Last Filed: 04/01/24 02:11> Surgical History Surgical History: Surgical History S/P amputation of limb Status post above-knee amputation of left lower extremity Status post amputation of toe <Mitch Osei PA-C - Last Filed: 04/01/24 02:11> Family History Family History: Family History Father Family history of diabetes mellitus in first degree relative Hypertension Family history of coronary artery disease Mother Family history of diabetes mellitus in first degree relative Sibling Family history of diabetes mellitus in first degree relative Other Diabetes mellitus Family history of cardiovascular disease <Mitch Osei PA-C - Last Filed: 04/01/24 02:11> Social History Social History: Social History Smoking packs per day: 1.5 Smoking cigarettes per day: 30.0 Years smoked: 50 Smoking pack-years: 75.00 Smoking status: Current every day smoker Tobacco type: cigarettes Second hand tobacco smoke exposure: No Alcohol intake: never Substance use: current Substance use type: marijuana Lack of Transportation: No Lack of Food: Never True Current Housing: I Have Housing Concerned About Future Housing: No Difficulty Paying Gas/Electric Bills: No Difficulty Paying for Meds: No Currently Unemployed: No Education: High School Diploma/GED Difficulty w/ Childcare or Family Care: No Living arrangements: with family Additional living arrangements
[2024-03-31 23:56] VITALS: BP 129/65; PULSE 73; RESP 15; TEMP 36.7; O2SAT 98
[2024-04-01] VITALS (88 sets, daily range): BP systolic 53–144; BP diastolic 37–75; PULSE 66–93; RESP 14–100; TEMP 34.4–37.1; O2SAT 71–100; BMI 26.9
--- NOTE | 2024-04-01 | ECHO_ITS ---
Patient Info Name: Jose Mckinney Age: 63 years : 1960 Gender: Male Ht: 74 in Wt: 210 lbs BSA: 2.24 m2 HR: 74 bpm BP: 86 / 55 mmHg Heart Rhythm: Sinus Rhythm Technical Quality: Poor Exam Date: 04/01/2024 9:52 AM Exam Location: Echo Lab Patient Status: Inpatient Admit Date: 04/01/2024 Staff Ordering Physician: Jacek Romano MD Rehab Services Aide: Mono Chance RDCS Attending Provider: Charly Lynch MD Exam Type: CA echo dop color flow w con Study Info Indications - Syncope Complete two-dimensional, color flow and Doppler transthoracic echocardiogram is performed with contrast to opacify the left ventricle and to improve the deliniation of the left ventricle endocardial borders. Contrast/Agitated Saline Contrast/Ag. Saline: Definity Amount: 5.00 ml Existing IV Access: Yes Reason for Poor Study: poor echocardiographic windows Summary 1. Left ventricular chamber dimension is moderately enlarged. 2. Left ventricular systolic function is mildly reduced, estimated at 45-50%. 3. There is moderately increased left ventricular wall thickness. 4. The left ventricular diastolic function is grade I diastolic dysfunction. 5. The basal inferior wall, and mid inferior wall are hypokinetic. 6. The aortic root size at the sinus of Valsalva is mildly dilated. 7. Dilated inferior vena cava with >50% collapse upon inspiration consistent with elevated right atrial pressure, 15 mmHg. Left Ventricle Left ventricular chamber dimension is moderately enlarged. Left ventricular systolic function is mildly reduced, estimated at 45-50%. There is moderately increased left ventricular wall thickness. The left ventricular diastolic function is grade I diastolic dysfunction. The basal inferior wall, and mid inferior wall are hypokinetic. All other reeder appear normal. Right Ventricle Right ventricular chamber dimension is normal. Right ventricular systolic function is normal. Left Atria Left atrial chamber dimension is normal. Right Atria Right atrial chamber dimension is normal. Atrial Septum Intact interatrial septum visualized by color flow imaging. Aortic Valve The aortic valve is probable trileaflet. There is no aortic valve stenosis. There is trace aortic valve regurgitation. Pulmonic Valve The pulmonic valve is normal. There is no pulmonic valve stenosis. There is trace pulmonic regurgitation. Mitral Valve The mitral valve has normal leaflets. There is no mitral valve stenosis. There is trace mitral valve regurgitation. Tricuspid Valve The tricuspid valve leaflets are normal. There is no significant tricuspid valve stenosis. There is trace tricuspid valve regurgitation. No pulmonary hypertension, estimated pulmonary arterial systolic pressure is 19 mmHg. Pericardium/Pleural The pericardium appears normal. There is no pericardial effusion. Inferior Vena Cava Dilated inferior vena cava with >50% collapse upon inspiration consistent with elevated right atrial pressure, 15 mmHg. Aorta The aortic root size at the sinus of Valsalva is mildly dilated. Left Ventricular Outflow Tract Name Value Normal LVOT 2D LVOT Diameter 2.19 cm LVOT Doppler LV
[2024-04-01 00:56] LABS: Alanine Aminotransferase 18 U/L (6-50); Albumin Level 3.4 g/dL (3.5-5.1); Alkaline Phosphatase 98 U/L (38-126); Anion Gap 8 mmol/L (4-12); Aspartate Amino Transferase 20 U/L (17-59); Bilirubin,Total 0.5 mg/dL (0.2-1.3); Blood Urea Nitrogen 41 mg/dL (9-20); CRP 0.6 mg/dL (<1.0); Calcium 8.4 mg/dL (8.4-10.2); Carbon Dioxide 22 mmol/L (22-30); Chloride 104 mmol/L (98-107); Estimated CRCL calculation 35 ml/min; Estimated Glomerular Filt Rate 29; Glucose 191 mg/dL (65-110); Potassium 4.3 mmol/L (3.4-5.0); Sodium 134 mmol/L (137-145)
[2024-04-01 00:58] LABS: Basophils Absolute Auto 0.1 K/mm3 (0.0-0.1); Basophils Percent Auto 0.7 % (0.2-1.2); Eosinophils Absolute Auto 0.8 K/mm3 (0-0.3); Eosinophils Percent Auto 7.7 % (0-4.4); Hematocrit 38.7 % (42.0-52.0); Hemoglobin 12.8 g/dL (14.0-18.0); Immature Granulocyte Absolute 0.02 K/mm3 (0.00-0.031); Immature Granulocyte Percent A 0.2 % (0-0.5); Lymphocytes Absolute Auto 3.11 K/mm3 (0.9-3.2); Lymphocytes Percent Auto 28.5 % (18.3-44.2); Mean Corpuscular HGB Conc 33.1 g/dl (32-36); Mean Corpuscular Hemoglobin 26.7 pg (26-34); Mean Corpuscular Volume 80.8 fl (80-100); Mean Platelet Volume 9.5 fl (7.4-10.4); Monocytes Absolute Auto 0.9 K/mm3 (0.1-0.6); Neutrophils Percent Auto 54.9 % (45.5-73.1); Platelet Count Result 327 k/mm3 (150-375); Red Blood Count 4.79 M/mm3 (4.6-6.20); Red Cell Distribution Width 13.6 % (11.5-14.5); White Blood Count 10.9 K/mm3 (4.5-10.0)
[2024-04-01] MEDS: SODIUM CHLORIDE 0.9% IV 1,000 ML 999 ML IV CONT (01:44)
[2024-04-01] MEDS: ONDANSETRON INJ 4 MG/2 ML VIAL IV PUSH (01:44)
[2024-04-01] MEDS: CEFEPIME 2 GM/NS 50 ML 2 GM/50 ML BAG IVPB ×2 (01:44→11:26)
[2024-04-01] MEDS: MORPHINE SULFATE (*CRX) 4 MG/ML INJ IV PUSH (01:44)
[2024-04-01 01:54] LABS: D Dimer 0.67 ug/mL (<0.48)
[2024-04-01 02:06] LABS: Appearance Urine Clear (Clear); Bacteria Urine None Seen /hpf; Bilirubin Urine Negative (Negative); Blood Urine 1+ (Negative); Color Urine Yellow (Yellow); Glucose Urine UA 3+ mg/dL (Negative); Ketones Urine Negative (Negative); Leukocyte Esterase Ur Negative LEU/UL (Negative); Nitrate Urine Negative (Negative); Non Pathogenic Casts >20; Protein Urine 3+ mg/dL (Negative); RBC Urine 0-2 /hpf (0-2); Specific Grav Ur 1.016 (1.001-1.035); Squamous Epithelial Cell Urine None Seen /hpf (Few); Urobilinogen Urine 0.2 mg/dL (<2.0); WBC Urine 0-5 /hpf (0-3)
[2024-04-01 02:08] LABS: Add Urine Microscopic? YES
[2024-04-01 02:28] LABS: Barbiturate Screen Urine Negative (Negative); Benzodiazepines Screen Urine Negative (Negative); Cannabinoid Screen Urine Positive (Negative); Cocaine Screen Urine Negative (Negative); Methadone Screen Urine Negative (Negative); Opiate Screen Urine Negative (Negative); Phencyclidine Screen Urine Negative (Negative)
[2024-04-01] MEDS: VANCOMYCIN 1,250 MG/NS 250 ML 1,250 MG/250 ML BAG 166.67 MG IVPB (02:31)
--- NOTE | 2024-04-01 02:36 | ECG_ITS ---
Test Date: 2024-04-01 03:22:35 Measurements Intervals [place] Rate: 83 P: 77 SC: 175 QRS: 65 QRSD: 118 T: -56 QT: 433 QTc: 511 Interpretive Statements SINUS RHYTHM WITH OCCASIONAL VENTRICULAR PREMATURE COMPLEXES INTRAVENTRICULAR CONDUCTION DELAY ST DEVIATION AND MODERATE T-WAVE ABNORMALITY, CONSIDER INFERIOR ISCHEMIA BASELINE WANDER- I, III, V5 ABNORMAL ECG No previous ECG available for comparison Electronically Signed On 04-01-2024 06:13:17 CDT by Devin Wilson D.O.
[2024-04-01 02:52] LABS: Amphetamine Screen Urine Negative (Negative)
[2024-04-01 02:53] LABS: Ethanol < 10 mg/dL (<10)
[2024-04-01 03:09] LABS: Glucose Point of Care 214 mg/dl (65-105)
[2024-04-01 03:23] LABS: Alveolar/Arterial O2 Gradient 475.6 mmHg; Base Excess ABG -14.3 mEq/l (+/-2.0); Carboxyhemoglobin 0.3 % THb (0-2.0); Fractional Inspired Oxygen 100 %; HCO3 ABG 18.3 mEq/l (22.0-26.0); Methemoglobin ABG 0.5 %THb (0-1.5); Oxygen Content ABG 22.6 %vol (16.0-22.0); Oxygen Saturation ABG 98.1 % (95.0-100.0); Oxyhemoglobin 97.5 % THb (90.0-100.0); PO2 ABG 163.9 mmHg (80.0-100.0); PO2 FiO2 Ratio Arterial Blood 1.64 %; Reduced Hemoglobin 1.7 %THb (0-5.0); Total Hemoglobin 16.3 g/dL (12.0-18.0)
[2024-04-01] MEDS: FENTANYL 2,500MCG/NS250ML(*CRX 2,500 MCG/250 ML BAG IV CONT (03:24)
[2024-04-01 03:25] LABS: pH ABG 7.014 (7.350-7.450)
[2024-04-01 03:26] LABS: Arterial Blood Gas PEEP 8 cmH2O; Arterial Blood Gas Tidal Volume 500 ml; Arterial Blood Gas Vent Mode CMV; Arterial Blood Gas Ventilator rate 16 /MIN; Device VENTILATOR; Modified Allen's Test Pass; PCO2 ABG 73.5 mmHg (35.0-45.0); Site Drawn LEFT RADIAL
[2024-04-01] MEDS: MIDAZOLAM 100MG/NS 100ML(*CRX) 100 MG/100 ML BAG IV CONT (03:26)
[2024-04-01] MEDS: EPINEPHrine HCL INJ 1 MG/ML AMPUL 0.3 MG IM (03:27)
--- NOTE | 2024-04-01 04:24 | PC.NURSE ---
@0240, almost immediately after start of Vancomycin, pt became hot, diaphoretic, nauseous, and anxious. EDP Dr Keenan at bedside. Pt stated multiple times he could not breathe. Decision to intubate was made at 0250 @0258 30mg of Etomidate, 100mg of Succinylcholine was administered. Respiratory at bedside for intubation. Positive color change noted, and bilateral breath sounds heard @0300. Placement confirmed by Dr. Keenan. Pt was intubated with 7.5mm tube. tube placement 23 at the gum.
[2024-04-01] MEDS: EPINEPHrine INJ 1 MG in DEXTROSE 5% IN WATER 250 ML 15.06 MG IV CONT (04:27)
[2024-04-01] MEDS: ENOXAPARIN 100 MG/ML SYRINGE SUB-Q (04:33)
[2024-04-01] MEDS: FAMOTIDINE 20 MG/2 ML VIAL IV PUSH ×2 (04:33→20:31)
[2024-04-01] MEDS: diphenhydrAMINE HCl INJ 50 MG/ML VIAL 25 MG IV PUSH (04:33)
--- NOTE | 2024-04-01 04:37 | PC.NURSE ---
@330 OG tube placed and placement confirmed by EDP Dr. Keenan.
--- NOTE | 2024-04-01 04:42 | PC.NURSE ---
@9803 VERBAL ORDER FROM EDP DR. GOETZ GIVEN TO INCREASE FENTANYL TO 40MCG/HR
[2024-04-01] MEDS: RAPID SEQUENCE INTUBATION KIT 1 EACH (04:50)
[2024-04-01 04:54] LABS: INR 1.2; Partial Thromboplastin Time 24.2 Seconds (22.3-36.8); Prothrombin Time 15.8 Seconds (11.1-14.7)
[2024-04-01] MEDS: methylPREDNISolone SOD SUCC 125 MG VIAL IV PUSH (04:54)
[2024-04-01 04:56] LABS: CRP 0.5 mg/dL (<1.0)
[2024-04-01 05:51] LABS: Alveolar/Arterial O2 Gradient 125.7 mmHg; Base Excess ABG -11.5 mEq/l (+/-2.0); Fractional Inspired Oxygen 60 %; HCO3 ABG 17.5 mEq/l (22.0-26.0); Oxygen Content ABG 20.8 %vol (16.0-22.0); Oxygen Saturation ABG 99.4 % (95.0-100.0); Oxyhemoglobin 98.8 % THb (90.0-100.0); PCO2 ABG 51.2 mmHg (35.0-45.0); PO2 ABG 254.4 mmHg (80.0-100.0); PO2 FiO2 Ratio Arterial Blood 4.24 %; Total Hemoglobin 14.6 g/dL (12.0-18.0); pH ABG 7.151 (7.350-7.450)
[2024-04-01 05:52] LABS: Arterial Blood Gas PEEP 8 cmH2O; Arterial Blood Gas Vent Mode CMV; Arterial Blood Gas Ventilator rate 22 /MIN; Device VENTILATOR; Modified Allen's Test Unable to perform; Site Drawn RIGHT RADIAL
[2024-04-01 05:53] LABS: Arterial Blood Gas Tidal Volume 500 ml
[2024-04-01] MEDS: SODIUM BICARBONATE 8.4% 50 MEQ/50 ML SYRINGE 100 MEQ IV PUSH (06:07)
[2024-04-01] MEDS: LINEZOLID 600 MG/300 ML 600 MG/300 ML SOLN 300 MG IVPB ×2 (06:09→17:28)
[2024-04-01] MEDS: SODIUM CHLORIDE 0.9% IV 1,000 ML 125 ML IV CONT (06:27)
[2024-04-01 07:30] LABS: MRSA (PCR) NOT DETECTED (NOT DETECTE)
[2024-04-01 07:38] LABS: Reflex Lactic Acid Yes or No Add Lactic
[2024-04-01 08:09] LABS: Lactic Acid 2.1 mmol/L (0.7-2.0)
[2024-04-01] MEDS: NICOTINE (*PBKC) 21 MG PATCH 1 PATCH TRANSDERM (08:33)
[2024-04-01] MEDS: EPINEPHrine INJ 1 MG in DEXTROSE 5% IN WATER 250 ML 75.3 MG IV CONT ×2 (08:49→12:19)
[2024-04-01 09:08] LABS: Creatine Kinase 164 U/L (55-170)
[2024-04-01 09:30] LABS: NT Pro B Type Natriuretic Pept 14000 pg/mL (19.9-100); Troponin I 0.039 ng/mL (0.000-0.034)
[2024-04-01] MEDS: INSULIN ASPART (*BKC) 100 UNITS/ML SUB-Q ×4 (09:34→20:26)
[2024-04-01] MEDS: DOXYCYCLINE 100 MG/NS 100 ML 100 MG/100 ML BAG IVPB ×2 (09:35→20:31)
--- NOTE | 2024-04-01 09:39 | WPDCNINT ---
Assessment and Plan Assessment and plan (1) Sepsis: Code(s): A41.9 - Sepsis, unspecified organism Status: Acute Assessment and Plan: Patient has sepsis with likely source of cellulitis of right leg and possible pneumonia as evidenced from chest x-ray Procalcitonin 2.0, UA negative, blood cultures have been sent and pending In light of patient's possible anaphylactic reaction to vancomycin he was started on Zyvox I will continue cefepime and add doxycycline to cover for community-acquired pneumonia (2) Shock: Code(s): R57.9 - Shock, unspecified Status: Acute Assessment and Plan: Patient is in shock which is likely combination of sepsis and possible anaphylaxis Patient received 2 L bolus in the ER. Continue IV fluids and change sedation to LR Will give additional 1 L bolus Continue epinephrine titration to maintain mean arterial pressure (3) Anaphylaxis: Code(s): T78.2XXA - Anaphylactic shock, unspecified, initial encounter Status: Acute Assessment and Plan: Patient's symptoms started initially after starting vancomycin with possible anaphylactic reaction Patient was given 1 dose of steroids and epinephrine IM Continue epinephrine IV hemodynamic support Will give additional IV fluid bolus continue maintenance IV fluids Add albuterol nebulize Will hold further steroids (4) Cellulitis: Code(s): L03.90 - Cellulitis, unspecified Status: Acute Assessment and Plan: See above Patient was suspected of having DVT in the right leg although I do not appreciate significant swelling. Patient was given empiric anticoagulation in the ER. Doppler is ordered and pending (5) Chronic kidney disease, stage 4 (severe): Code(s): N18.4 - Chronic kidney disease, stage 4 (severe) Status: Acute Assessment and Plan: Patient has history of chronic kidney disease with last recorded creatinine and 1.3 in 2020. Baseline creatinine unknown. Presented with creatinine of 2.3 which may suggest ELEANOR Continue volume resuscitation CK level normal Check urine electrolytes Monitor urine output electrolytes and creatinine Check renal ultrasound Consult nephrology (6) Diabetes mellitus type 2 with complications: Code(s): E11.8 - Type 2 diabetes mellitus with unspecified complications Status: Acute Assessment and Plan: Continue insulin Lantus Check HbA1c (7) Hypothyroidism: Code(s): E03.9 - Hypothyroidism, unspecified Status: Acute Assessment and Plan: TSH in acceptable range Continue levothyroxine (8) Syncope: Code(s): R55 - Syncope and collapse Status: Acute Assessment and Plan: Likely secondary to sepsis and possibly anaphylaxis No arrhythmias noticed Patient does have uncontrolled diabetes mellitus and may have underlying coronary disease EKG reviewed Continue serial troponin Add aspirin and resume statin Consult cardiology Check echocardiogram Plan DVT prophylaxis -Lovenox Stress ulcer prophylaxis -Pepcid Nutrition - npo Code Status - Full Code Total Critical Care Time - 45 minutes Due to a high probability of clinically significant, life threatening deterioration, the patient required my highest level of preparedness to intervene emergently and I personally spent this critical care time directly and personally managing the patient. This critical care time included obtaining a history; examining the patient; pulse oximetry; ordering and review of studies; arranging urgent treatment with development of a management plan; evaluation of patient's response to treatment; frequent reassessment; and discussions with other providers. It was exclusive of separately billable procedures and treating other patients and teaching time. 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
[2024-04-01 09:42] LABS: Glucose Point of Care 353 mg/dl (65-105)
--- NOTE | 2024-04-01 10:09 | PCRCNOTE ---
WAITING FOR ECHO TO BE DONE, THEN WILL DRAW ABG. DR. EMMANUEL AWARE.
--- NOTE | 2024-04-01 10:17 | PM.IMPN ---
Progress Note: A&P Assessment and Plan (1) Stage 3b chronic kidney disease: Code(s): N18.32 - Chronic kidney disease, stage 3b Status: Chronic (2) Cardiomyopathy: Code(s): I42.9 - Cardiomyopathy, unspecified Status: Acute (3) Syncope: Code(s): R55 - Syncope and collapse Status: Acute (4) Chronic kidney disease, stage 4 (severe): Code(s): N18.4 - Chronic kidney disease, stage 4 (severe) Status: Acute (5) Diabetes mellitus type 2 with complications: Code(s): E11.8 - Type 2 diabetes mellitus with unspecified complications Status: Acute (6) Uncontrolled diabetes mellitus: Status: Acute Plan Septic shock Likely resulting from right lower extremity cellulitis and pneumonia Pending blood culture Patient received Zosyn, transitioned to cefepime and doxy to cover community-acquired pneumonia Patient is on epinephrine to maintain the map above 65 Anaphylaxis: Also possible anaphylactic shock, suspecting due to allergy to vancomycin Continue epinephrine IV fluid Hold steroid per living nurse Suspecting DVT Received Lovenox therapeutic dose in the ED, Doppler is ordered and pending ELEANOR Baseline creatinine unknown. Presented with creatinine of 2.3 which may suggest ELEANOR Continue volume resuscitation CK level normal Check urine electrolytes Monitor urine output electrolytes and creatinine Check renal ultrasound Consult nephrology Type 2 diabetes Continue insulin Lantus Check HbA1c Hypothyroidism: Code(s): E03.9 - Hypothyroidism, unspecified Status: Acute Assessment and Plan: TSH in acceptable range Continue levothyroxine Syncope: Patient passed out, likely Likely secondary to sepsis and possibly anaphylaxis No arrhythmias noticed Continue telemetry monitoring Add aspirin and resume statin Consult cardiology Pending echocardiogram Subjective Date/time seen: 04/01/24 10:17 Exam Narrative: GENERAL: On sedation, in no acute distress. Well-nourished. - EYES: EOMI. Anicteric. - HENT: Moist mucous membranes. - LUNGS: Coarse breath sound bilaterally - CARDIOVASCULAR: Regular rate and rhythm. No murmur. No JVD. - ABDOMEN: Soft, non-tender and non-distended. No palpable masses. - EXTREMITIES: No edema. Peripheral pulses 2+. Non-tender. - NEUROLOGIC: No focal neurological deficits. CN II-XII grossly intact. - PSYCHIATRIC: Not oriented x 3. Appropriate mood and affect. - SKIN: Erythema, swelling, right lower extremity - LYMPH: No cervical lymphadenopathy. Objective Data Vital Signs Vital Signs: Vital Signs - 24 hr 03/31/24 21:34 03/31/24 23:56 04/01/24 02:00 Temperature 97.8 F 98.1 F 98.2 F Pulse Rate 77 73 67 Respiratory Rate 16 15 19 Blood Pressure 117/59 L 129/65 97/75 L Pulse Oximetry 99 98 Oxygen Delivery Room Air Fraction of Inspired Oxygen 04/01/24 03:24 04/01/24 03:26 04/01/24 03:10 Temperature Pulse Rate 81 84 Respiratory Rate 20 22 H Blood Pressure Pulse Oximetry 97 Oxygen Delivery Mechanical Ventilation Fraction of Inspired Oxygen 100 04/01/24 02:49 04/01/24 03:00 04/01/24 03:03 Temperature Pulse Rate 93 89 Respiratory Rate 16 24 H Blood Pressure 88/64 L Pulse Oximetry 71 L 84 L Oxygen Delivery Fraction of Inspired Oxygen 04/01/24 03:12 04/01/24 03:15 04/01/24 03:16 Temperature Pulse Rate 85 84 84 Respiratory Rate 20 19 19 Blood Pressure 83/68 L Pulse Oximetry 85 L 95 96 Oxygen Delivery Fraction of Inspired Oxygen 04/01/24 03:30 04/01/24 03:31 04/01/24 03:34 Temperature Pulse Rate 82 83 79 Respiratory Rate 25 H 22 H Blood Pressure 97/59 L Pulse Oximetry 100 98 98 Oxygen Delivery Mechanical Ventilation Fraction of Inspired Oxygen 60 04/01/24 04:27 04/01/24 03:39 04/01/24 03:42 Temperature Pulse Rate 72 80 80 Respiratory Rate 26 H 22 H Blood Pressure 56/45 L 76/52 L Pulse Oximetry
[2024-04-01] MEDS: PERFLUTREN LIPID MICROSPHERES 1.5 ML VIAL DILUTED TO 10 ML TOTAL VOLUME IV PUSH (10:33)
--- NOTE | 2024-04-01 10:34 | IVDEFINITY ---
Prior to administration of IV Definity the patient was educated on the risks and benefits of the imaging enhancing agent including potential adverse side effects. The patient verbalized understanding. Allergies were verified. No exclusion criteria were identified and at least one of the following inclusion criteria were met: 1) physician request, 2) patient technically difficult to image (per the [place] [employer] of Echocardiography guidelines of two or more segments not discernable within the apical view), or 3) questionable left ventricular function. ?
[2024-04-01 10:35] LABS: Alveolar/Arterial O2 Gradient 142.9 mmHg; Base Excess ABG -9.9 mEq/l (+/-2.0); Fractional Inspired Oxygen 40 %; HCO3 ABG 17.4 mEq/l (22.0-26.0); Oxygen Saturation ABG 95.6 % (95.0-100.0); Oxyhemoglobin 95.6 % THb (90.0-100.0); PCO2 ABG 43.3 mmHg (35.0-45.0); PO2 ABG 92.5 mmHg (80.0-100.0); PO2 FiO2 Ratio Arterial Blood 2.31 %; Total Hemoglobin 14.1 g/dL (12.0-18.0)
[2024-04-01 10:37] LABS: Device VENTILATOR; Site Drawn LEFT BRACHIAL; pH ABG 7.223 (7.350-7.450)
[2024-04-01 10:38] LABS: Arterial Blood Gas PEEP 5 cmH2O; Arterial Blood Gas Pressure Support 0 cmH2O; Arterial Blood Gas Tidal Volume 450 ml; Arterial Blood Gas Vent Mode CMV; Arterial Blood Gas Ventilator rate 25 /MIN
[2024-04-01] MEDS: LACTATED RINGERS 1,000 ML 100 ML IV CONT (10:45)
[2024-04-01 11:03] LABS: Creatinine Urine 46.3 mg/dL
[2024-04-01 11:04] LABS: Sodium Urine Random 17 meq/L
--- NOTE | 2024-04-01 11:16 | PM.CNCAR ---
Assessment and Plan Assessment and plan (1) Syncope: Code(s): R55 - Syncope and collapse Status: Acute Assessment and Plan: Reportedly had several brief episodes of loss of consciousness in the emergency department. He did not have any arrhythmias associated with these episodes. As he is intubated, unable to get more detailed history. Will continue to monitor on telemetry for any arrhythmias. Echo has been ordered. No further workup is recommended at this time. This may change depending on his clinical course and ability to give detailed history. (2) Shock: Code(s): R57.9 - Shock, unspecified Status: Acute Assessment and Plan: Related to cellulitis and sepsis. On pressor support (3) Sepsis: Code(s): A41.9 - Sepsis, unspecified organism Status: Acute Assessment and Plan: Secondary to cellulitis. On abx per hospitalist (4) Cellulitis: Code(s): L03.90 - Cellulitis, unspecified Status: Acute Assessment and Plan: As above, management per hospitalist (5) Cardiomyopathy: Code(s): I42.9 - Cardiomyopathy, unspecified Status: Acute Assessment and Plan: Nonischemic cardiomyopathy with previously severely reduced EF, now 45%. When he is off pressor support resume GDMT including entresto, jardiance, and metoprolol History of Present Illness History of Present Illness Consult date/time: 04/01/24 11:16 Requesting physician: Jacek Romano MD Consult reason: Other (syncope) Reason For Visit: Cellulitis, Anaphylaxix, Respiratory failure, Shoc Narrative: Jose Mckinney is a 63 year old male with diabetes mellitus type 2 which reportedly is very poorly controlled, L AKA, chronic kidney disease, and hyperlipidemia. He comes to the hospital with a chief complaint of lower right extremity pain, redness, and swelling. Cardiology is being consulted for syncope. Per MD report he had several brief episodes of loss of consciousness in the emergency department that were not associated with any arrhythmias and the suspicion is that he was having an anaphylactic reaction to vancomycin. He was intubated as a result of this and remains intubated in the ICU now. As such, this history has been obtained from the medical record and verbal report. Review of Systems Review of Systems: ROS unobtainable: Yes unobtainable due to endotracheal tube and unobtainable due to medical condition Constitutional: Constitutional: Denies chills, Denies fever(s), Denies headache(s) and Denies malaise Eyes: Eyes: Denies change in vision ENT: Reports Normal hearing present, Denies dizziness, Denies headache(s) and Denies hearing loss Cardiovascular: Cardiovascular: Denies chest pain, Denies chest pain at rest, Denies chest pain with activity, Denies syncope, Denies leg edema, Denies palpitations, Denies dyspnea and Denies dyspnea on exertion Respiratory: Respiratory: Denies cough, Denies dyspnea, Denies dyspnea on exertion and Denies wheezing Gastrointestinal: Gastrointestinal: Denies abdominal pain, Denies constipation and Denies diarrhea Genitourinary: Genitourinary: Denies hematuria and Denies dysuria Musculoskeletal: Musculoskeletal: Denies myalgias, Denies arthralgias and Denies muscle cramps Integumentary/Breasts: Skin/Breast: Denies wounds Neurologic: Reports Normal hearing present, Denies confusion, Denies dizziness, Denies syncope and Denies headache(s) Psychiatric: Psychiatric: Denies anxiety, Denies confusion and Denies depression Endocrine: Endocrine: Denies cold intolerance, Denies flushing, Denies heat intolerance and Denies palpitations Hematologic/Lymphatic: Hematologic/Lymphatic: Denies easy bleeding and Denies easy bruising Allergic/Immunologic: Allergic/Immunologic: Denies wheezing PMFSH Past Medical History Medical History Acute kidney injury Chronic pain of both shoulders Chronic, co
[2024-04-01] MEDS: SODIUM BICARBONATE 8.4% 150 MEQ in WATER, STERILE FOR INJECTION 950 ML 100 MEQ IV CONT ×2 (11:26→22:12)
[2024-04-01] MEDS: INSULIN GLARGINE (*BKC) 100 UNITS/ML 30 UNITS SUB-Q ×2 (11:26→20:26)
[2024-04-01 11:56] LABS: Glucose Point of Care 372 mg/dl (65-105)
[2024-04-01] MEDS: ASPIRIN 325 MG TABLET PO (12:20)
--- NOTE | 2024-04-01 12:25 | P.CONNP_ITS ---
Assessment and Plan Assessment and plan (1) Acute kidney injury: Code(s): N17.9 - Acute kidney failure, unspecified Status: Acute Assessment and Plan: * as noted by admission labs * recent ELEANOR/ARF at [facility] in January 2024 * creatinine was as high as 3.47mg/dl * down to 2.53mg/dl by time of discharge * suspect multifactorial etiology: * altered hemodynamics/hypotension * infection/early sepsis (RLE cellulitis +/- pneumonia) * prerenal factors * BEVERLEY-I use prior to admission * diuretic use prior to admission * other(?) * follow-up on urine studies and renal ultrasound * follow repeat labs and UOP (2) Stage 3b chronic kidney disease: Code(s): N18.32 - Chronic kidney disease, stage 3b Status: Chronic Assessment and Plan: * baseline creatinine seems to run ~ 1.6 - 2.1mg/dl * last outpatient labs on 03/12/24 was 1.92mg/dl. * presumably due to his poorly controlled diabetes, hypertension, vascular disease (cardiomyopathy + hyperlipidemia + smoking) and age-related change (3) Sepsis: Code(s): A41.9 - Sepsis, unspecified organism Status: Acute Assessment and Plan: * presumed source being right lower extremity cellulitis +/- possible pneumonia * follow culture data * continue broad spectrum antibiotics (vancomycin on hold) (4) Shock: Code(s): R57.9 - Shock, unspecified Status: Acute Assessment and Plan: * thought to be secondary to early sepsis and possible anaphylactic reaction * s/p IVFs resuscitation * on epinephrine gtt to maintain MAP - wean as tolerated * follow trend of hemodynamics (5) Anaphylaxis: Code(s): T78.2XXA - Anaphylactic shock, unspecified, initial encounter Status: Acute Assessment and Plan: * assumption secondary to vancomycin given symptoms began follwing IV infusion of this medication * s/p IM epinephrine and IV steroids x 1 * on epinephrine gtt at this time * on IVFs as well * follow symptoms and clinical status (6) Cellulitis: Code(s): L03.90 - Cellulitis, unspecified Status: Acute Assessment and Plan: * based on clinical exam on admission * on antibiotics * follow cultures * follow exam with current interventions (7) Syncope: Code(s): R55 - Syncope and collapse Status: Acute Assessment and Plan: * possibly due to anaphylatic reaction * known to have non-ischemic cardiomyopathy -- last Echo at [facility] with EF around 20% * repeat Echo ordered * Cardiology following * follow telemetry (8) Diabetes mellitus type 2 with complications: Code(s): E11.8 - Type 2 diabetes mellitus with unspecified complications Status: Chronic Assessment and Plan: * poor control at baseline due to compliance issues * follows with [facility] * follow accu-cheks * glycemic control per hospitalist/insurance billing specialist Greater than 20 minutes was spent with review of the electronic medical records including his hospitalization at [facility] [place] a couple of months ago, recent imaging studies including his echocardiogram, renal ultrasound, and recent cardiac catheterization as well as review of his laboratory findings for last few years regarding his renal dysfunction as well as discussion with the patient's contact/friend regarding his medical history I will continue follow the patient with you while he remains hospitalized and make further recommendations as deemed necessary. Thank you for allowing me to part
--- NOTE | 2024-04-01 12:25 | PM.CNNEP ---
Assessment and Plan Assessment and plan (1) Acute kidney injury: Code(s): N17.9 - Acute kidney failure, unspecified Status: Acute Assessment and Plan: as noted by admission labs recent ELEANOR/ARF at [facility] in January 2024 creatinine was as high as 3.47mg/dl down to 2.53mg/dl by time of discharge suspect multifactorial etiology: altered hemodynamics/hypotension infection/early sepsis (RLE cellulitis +/- pneumonia) prerenal factors BEVERLEY-I use prior to admission diuretic use prior to admission other(?) follow-up on urine studies and renal ultrasound follow repeat labs and UOP (2) Stage 3b chronic kidney disease: Code(s): N18.32 - Chronic kidney disease, stage 3b Status: Chronic Assessment and Plan: baseline creatinine seems to run ~ 1.6 - 2.1mg/dl last outpatient labs on 03/12/24 was 1.92mg/dl. presumably due to his poorly controlled diabetes, hypertension, vascular disease (cardiomyopathy + hyperlipidemia + smoking) and age-related change (3) Sepsis: Code(s): A41.9 - Sepsis, unspecified organism Status: Acute Assessment and Plan: presumed source being right lower extremity cellulitis +/- possible pneumonia follow culture data continue broad spectrum antibiotics (vancomycin on hold) (4) Shock: Code(s): R57.9 - Shock, unspecified Status: Acute Assessment and Plan: thought to be secondary to early sepsis and possible anaphylactic reaction s/p IVFs resuscitation on epinephrine gtt to maintain MAP - wean as tolerated follow trend of hemodynamics (5) Anaphylaxis: Code(s): T78.2XXA - Anaphylactic shock, unspecified, initial encounter Status: Acute Assessment and Plan: assumption secondary to vancomycin given symptoms began follwing IV infusion of this medication s/p IM epinephrine and IV steroids x 1 on epinephrine gtt at this time on IVFs as well follow symptoms and clinical status (6) Cellulitis: Code(s): L03.90 - Cellulitis, unspecified Status: Acute Assessment and Plan: based on clinical exam on admission on antibiotics follow cultures follow exam with current interventions (7) Syncope: Code(s): R55 - Syncope and collapse Status: Acute Assessment and Plan: possibly due to anaphylatic reaction known to have non-ischemic cardiomyopathy -- last Echo at [facility] with EF around 20% repeat Echo ordered Cardiology following follow telemetry (8) Diabetes mellitus type 2 with complications: Code(s): E11.8 - Type 2 diabetes mellitus with unspecified complications Status: Chronic Assessment and Plan: poor control at baseline due to compliance issues follows with [facility] follow accu-cheks glycemic 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 Thank you for allowing me to participate in care this patient. History of Present Illness Reason for Consult Consult date: 04/01/24 Reason for consult: acute renal failure (on chronic kidney disease) Chief Complaint Chief complaint: Cellulitis, Anaphylaxix, Respiratory failure, Shoc History of Present Illness Narrative: All of the information that I have obtained is from review of the electronic medical record as well as discussion with the physician / nurses involved in the patient's care as enedina
[2024-04-01] MEDS: MIDAZOLAM 100MG/NS 100ML(*CRX) 100 MG/100 ML BAG (14:06)
[2024-04-01] MEDS: ALBUTEROL SULFATE NEB 2.5 MG/3 ML INH INHALATION ×2 (14:09→20:20)
[2024-04-01 14:13] LABS: Glucose Point of Care 376 mg/dl (65-105)
[2024-04-01] MEDS: CENTRAL LINE FLUSH 10 ML IV PUSH ×2 (14:15→20:26)
[2024-04-01 14:24] LABS: Anion Gap 12 mmol/L (4-12); Blood Urea Nitrogen 46 mg/dL (9-20); Calcium 7.1 mg/dL (8.4-10.2); Carbon Dioxide 19 mmol/L (22-30); Chloride 105 mmol/L (98-107); Estimated CRCL calculation 32 ml/min; Estimated Glomerular Filt Rate 26; Glucose 413 mg/dL (65-110); Potassium 3.9 mmol/L (3.4-5.0); Sodium 136 mmol/L (137-145)
[2024-04-01] MEDS: EPINEPHrine INJ 1 MG in DEXTROSE 5% IN WATER 250 ML 60.24 MG IV CONT (15:59)
[2024-04-01 17:41] LABS: Glucose Point of Care 371 mg/dl (65-105)
[2024-04-01 20:23] LABS: Glucose Point of Care 311 mg/dl (65-105)
[2024-04-01] MEDS: EPINEPHrine INJ 1 MG in DEXTROSE 5% IN WATER 250 ML 45.18 MG IV CONT (21:31)
[2024-04-01 21:38] LABS: Troponin I 0.022 ng/mL (0.000-0.034)
[2024-04-02] VITALS (38 sets, daily range): BP systolic 84–155; BP diastolic 50–93; PULSE 70–774; RESP 12–25; TEMP 35.8–36.9; O2SAT 93–100
[2024-04-02] MEDS: CEFEPIME 2 GM/NS 50 ML 2 GM/50 ML BAG IVPB ×2 (00:25→11:48)
[2024-04-02] MEDS: INSULIN ASPART (*BKC) 100 UNITS/ML SUB-Q ×3 (01:36→09:27)
[2024-04-02 01:44] LABS: Glucose Point of Care 319 mg/dl (65-105)
[2024-04-02] MEDS: ALBUTEROL SULFATE NEB 2.5 MG/3 ML INH INHALATION ×4 (02:26→20:24)
[2024-04-02] MEDS: MIDAZOLAM 100MG/NS 100ML(*CRX) 100 MG/100 ML BAG IV CONT ×2 (02:40)
[2024-04-02 04:05] LABS: Hematocrit 33.8 % (42.0-52.0); Hemoglobin 11.2 g/dL (14.0-18.0); Mean Corpuscular HGB Conc 33.1 g/dl (32-36); Mean Corpuscular Volume 81.4 fl (80-100); Mean Platelet Volume 9.2 fl (7.4-10.4); Platelet Count Result 332 k/mm3 (150-375); Red Blood Count 4.15 M/mm3 (4.6-6.20); Red Cell Distribution Width 14.1 % (11.5-14.5); White Blood Count 15.5 K/mm3 (4.5-10.0)
[2024-04-02 04:12] LABS: Glucose Point of Care 240 mg/dl (65-105)
[2024-04-02 04:15] LABS: Alanine Aminotransferase 18 U/L (6-50); Albumin Level 2.5 g/dL (3.5-5.1); Alkaline Phosphatase 69 U/L (38-126); Anion Gap 9 mmol/L (4-12); Aspartate Amino Transferase 17 U/L (17-59); Bilirubin,Total 0.3 mg/dL (0.2-1.3); Blood Urea Nitrogen 54 mg/dL (9-20); Carbon Dioxide 25 mmol/L (22-30); Chloride 103 mmol/L (98-107); Estimated CRCL calculation 28 ml/min; Estimated Glomerular Filt Rate 22; Glucose 256 mg/dL (65-110); Potassium 3.5 mmol/L (3.4-5.0); Sodium 137 mmol/L (137-145)
[2024-04-02 05:01] LABS: Alveolar/Arterial O2 Gradient 90.3 mmHg; Base Excess ABG 0.2 mEq/l (+/-2.0); Carboxyhemoglobin 0.1 % THb (0-2.0); Fractional Inspired Oxygen 40 %; HCO3 ABG 25.7 mEq/l (22.0-26.0); Oxygen Content ABG 17.2 %vol (16.0-22.0); Oxygen Saturation ABG 98.8 % (95.0-100.0); Oxyhemoglobin 98.9 % THb (90.0-100.0); PCO2 ABG 44.7 mmHg (35.0-45.0); PO2 ABG 143.5 mmHg (80.0-100.0); PO2 FiO2 Ratio Arterial Blood 3.59 %; Total Hemoglobin 12.2 g/dL (12.0-18.0); pH ABG 7.377 (7.350-7.450)
[2024-04-02 05:02] LABS: Device VENTILATOR; Modified Allen's Test Pass; Site Drawn RIGHT RADIAL
[2024-04-02 05:03] LABS: Arterial Blood Gas PEEP 5 cmH2O; Arterial Blood Gas Tidal Volume 450 ml; Arterial Blood Gas Vent Mode CMV; Arterial Blood Gas Ventilator rate 25 /MIN
[2024-04-02] MEDS: EPINEPHrine INJ 1 MG in DEXTROSE 5% IN WATER 250 ML 45.18 MG IV CONT (05:33)
[2024-04-02] MEDS: CENTRAL LINE FLUSH 10 ML IV PUSH ×3 (06:46→20:09)
[2024-04-02] MEDS: LINEZOLID 600 MG/300 ML 600 MG/300 ML SOLN 300 MG IVPB ×2 (06:46→17:57)
[2024-04-02 07:54] LABS: Glucose Point of Care 208 mg/dl (65-105)
--- NOTE | 2024-04-02 08:30 | WPDINTPN ---
Progress Note: A&P Assessment and Plan (1) Sepsis: Code(s): A41.9 - Sepsis, unspecified organism Status: Acute Assessment and Plan: Patient has sepsis with likely source of cellulitis of right leg and possible pneumonia as evidenced from chest x-ray Procalcitonin 2.0, UA negative, blood cultures have been sent and pending In light of patient's possible anaphylactic reaction to vancomycin he was started on Zyvox. Fentanyl infusion was discontinued I will continue cefepime and add doxycycline to cover for community-acquired pneumonia (2) Shock: Code(s): R57.9 - Shock, unspecified Status: Acute Assessment and Plan: Patient is in shock which is likely combination of sepsis and possible anaphylaxis Patient has received adequate amount of IV fluids and will hold further IV fluids due to concern of volume overload Continue epinephrine titration to maintain mean arterial pressure (3) Anaphylaxis: Code(s): T78.2XXA - Anaphylactic shock, unspecified, initial encounter Status: Acute Assessment and Plan: Patient's symptoms started initially after starting vancomycin with possible anaphylactic reaction Patient was given 1 dose of steroids and epinephrine IM Continue epinephrine IV hemodynamic support which is improving Discontinue further IV fluids Continue albuterol nebulize Will hold further steroids (4) Cellulitis: Code(s): L03.90 - Cellulitis, unspecified Status: Acute Assessment and Plan: See above Patient was suspected of having DVT in the right leg and was given empiric anticoagulation in the ER. Doppler was negative for DVT (5) Chronic kidney disease, stage 4 (severe): Code(s): N18.4 - Chronic kidney disease, stage 4 (severe) Status: Acute Assessment and Plan: Patient has history of chronic kidney disease with last recorded creatinine and 1.3 in 2020. Baseline creatinine unknown. Presented with creatinine of 2.3 which may suggest ELEANOR Patient has received volume resuscitation and will hold further fluids CK level normal Monitor urine output electrolytes and creatinine Renal ultrasound IMPRESSION: 1. Normal kidneys without hydronephrosis. 2. Mild diffuse bladder wall thickening which may be due to partially decompressed state but could also be seen with cystitis either acute or chronic. Nephrology consulted and following (6) Diabetes mellitus type 2 with complications: Code(s): E11.8 - Type 2 diabetes mellitus with unspecified complications Status: Acute Assessment and Plan: Continue insulin Lantus HbA1c 9.0 Start tube feedings if unable to extubate (7) Hypothyroidism: Code(s): E03.9 - Hypothyroidism, unspecified Status: Acute Assessment and Plan: TSH in acceptable range Continue levothyroxine (8) Syncope: Code(s): R55 - Syncope and collapse Status: Acute Assessment and Plan: Likely secondary to sepsis and possibly anaphylaxis No arrhythmias noticed except PVCs Patient does have uncontrolled diabetes mellitus and may have underlying coronary disease EKG reviewed serial troponin have now flattened Continue aspirin and resume statin Consult cardiology Echocardiogram Summary 1. Left ventricular chamber dimension is moderately enlarged. 2. Left ventricular systolic function is mildly reduced, estimated at 45-50%. 3. There is moderately increased left ventricular wall thickness. 4. The left ventricular diastolic function is grade I diastolic dysfunction. 5. The basal inferior wall, and mid inferior wall are hypokinetic. 6. The aortic root size at the sinus of Valsalva is mildly dilated. 7. Dilated inferior vena cava with >50% collapse upon inspiration consistent with elevated right atrial pressure, 15 mmHg. (9) Acute respiratory failure: Code(s): J96.00 - Acute respiratory failure, unspecified whether with hypoxia or hypercapnia Status: Acute Assessme
[2024-04-02 09:08] LABS: Alveolar/Arterial O2 Gradient 52.7 mmHg; Base Excess ABG -0.7 mEq/l (+/-2.0); Fractional Inspired Oxygen 30 %; HCO3 ABG 23.2 mEq/l (22.0-26.0); Oxygen Saturation ABG 98.4 % (95.0-100.0); Oxyhemoglobin 98.2 % THb (90.0-100.0); PCO2 ABG 35.7 mmHg (35.0-45.0); PO2 ABG 119.3 mmHg (80.0-100.0); PO2 FiO2 Ratio Arterial Blood 3.98 %; Total Hemoglobin 12.2 g/dL (12.0-18.0); pH ABG 7.431 (7.350-7.450)
[2024-04-02 09:09] LABS: Arterial Blood Gas PEEP 5 cmH2O; Arterial Blood Gas Pressure Support 5 cmH2O; Arterial Blood Gas Vent Mode SPONTANEOUS; Device VENTILATOR; Modified Allen's Test Pass; Site Drawn RIGHT RADIAL
[2024-04-02] MEDS: FAMOTIDINE 20 MG/2 ML VIAL IV PUSH ×2 (09:25→20:01)
[2024-04-02] MEDS: CALCIUM GLUC 2,000 MG/NS 100ML 2,000 MG/100 ML BAG 100 MG IVPB (09:26)
[2024-04-02] MEDS: DOXYCYCLINE 100 MG/NS 100 ML 100 MG/100 ML BAG IVPB ×2 (09:26→20:01)
[2024-04-02] MEDS: ENOXAPARIN 40 MG/0.4 ML SYRINGE SUB-Q (09:26)
[2024-04-02] MEDS: INSULIN GLARGINE (*BKC) 100 UNITS/ML 30 UNITS SUB-Q (09:28)
[2024-04-02 10:31] LABS: Eosinophil Urine None Seen % (None Seen); Urine Eos QC DJS
--- NOTE | 2024-04-02 10:33 | PCFNICU ---
ICU Rounding Note: Pt current nutrition is Clear liquid diet. Nutrition recommendation: Advance diet as medically able. Speech to see for recommendations Last recorded weight is 90.2 kg. Bowel Motility: +1 BM 04/01/24 Labs Reviewed: Hgb 11.2, Hct 33.8, Alb 2.5, GFR 22, BUN 54, Cre 2.9, Glu 208 Meds Noted: Lovenox, insulin, zofran Skin: Diabetic ulcer Additional Notes: Pt was extubated this morning and awaiting speech. Will continue to follow, make appropriate nutrition recommendations. Agree with orders. Following daily in ICU rounds. Monitor diet orders, tube feeding orders, wt, labs. Follow daily in ICU rounds .
--- NOTE | 2024-04-02 10:39 | PM.PNNEP ---
Progress Note: A&P Assessment and Plan (1) Acute kidney injury: Code(s): N17.9 - Acute kidney failure, unspecified Status: Acute Assessment and Plan: as noted by admission labs recent ELEANOR/ARF at [facility] in January 2024 creatinine was as high as 3.47mg/dl down to 2.53mg/dl by time of discharge suspect multifactorial etiology: altered hemodynamics/hypotension infection/early sepsis (RLE cellulitis +/- pneumonia) prerenal factors BEVERLEY-I use prior to admission diuretic use prior to admission other(?) evaluation noted: renal ultrasound without obstruction urine electrolytes prerenal CPK okay urine eosinophils negative follow repeat labs and UOP (2) Stage 3b chronic kidney disease: Code(s): N18.32 - Chronic kidney disease, stage 3b Status: Chronic Assessment and Plan: baseline creatinine seems to run ~ 1.6 - 2.1mg/dl last outpatient labs on 03/12/24 was 1.92mg/dl. presumably due to his poorly controlled diabetes, hypertension, vascular disease (cardiomyopathy + hyperlipidemia + smoking) and age-related change (3) Sepsis: Code(s): A41.9 - Sepsis, unspecified organism Status: Acute Assessment and Plan: presumed source being right lower extremity cellulitis +/- possible pneumonia follow culture data continue antibiotics stable hemodynamics noted (4) Shock: Code(s): R57.9 - Shock, unspecified Status: Acute Assessment and Plan: resolved thought to be secondary to early sepsis and possible anaphylactic reaction s/p IVFs resuscitation off pinephrine gtt at this time follow trend of hemodynamics (5) Anaphylaxis: Code(s): T78.2XXA - Anaphylactic shock, unspecified, initial encounter Status: Acute Assessment and Plan: assumption secondary to vancomycin given symptoms began follwing IV infusion of this medication s/p IM epinephrine and IV steroids x 1 off epinephrine gtt at this time off IVFs as well follow symptoms and clinical status (6) Cellulitis: Code(s): L03.90 - Cellulitis, unspecified Status: Acute Assessment and Plan: based on clinical exam on admission on antibiotics follow cultures follow exam with current interventions (7) Syncope: Code(s): R55 - Syncope and collapse Status: Acute Assessment and Plan: possibly due to anaphylatic reaction known to have non-ischemic cardiomyopathy -- last Echo at [facility] with EF around 20% repeat Echo here with improved EF around 40 - 45% Cardiology following follow telemetry (8) Diabetes mellitus type 2 with complications: Code(s): E11.8 - Type 2 diabetes mellitus with unspecified complications Status: Chronic Assessment and Plan: poor control at baseline due to compliance issues follows with [facility] follow accu-cheks glycemic control per hospitalist/program admin Will continue to follow. Subjective Date/time seen: 04/02/24 10:39 Interval history: Follow-up for acute kidney injury/acute renal failure on chronic kidney disease. Successfully extubated earlier this morning with relative stability in breathing/respiratory status; renal function/creatinine a tad worse but continues to make good urine output with improving hemodynamics (epinephrine gtt has been weaned off as well); no apparent distress noted; no other issues/events overnight or earlier this morning. Exam Narrative: General: WD/WN male in NAD Heart: normal S1 and S2; no rub Lungs: clear anteriorly; coarse at bases Abdomen: soft, nontender, nondistended, positive bowel sounds Extremities: no cyanosis or clubbing; no edema; s/p left AKA Skin: superficial wounds and chronic venous stasis changes noted on RLE Objective Data Vital Signs Vital Signs: Vital Signs Temp Pulse Resp BP Pulse Ox O2 Del Method O2 Flow Rate 04/02/24 10:00 97.2 F L
--- NOTE | 2024-04-02 10:39 | P.PNNP_ITS ---
Progress Note: A&P Assessment and Plan (1) Acute kidney injury: Code(s): N17.9 - Acute kidney failure, unspecified Status: Acute Assessment and Plan: * as noted by admission labs * recent ELEANOR/ARF at [facility] in January 2024 * creatinine was as high as 3.47mg/dl * down to 2.53mg/dl by time of discharge * suspect multifactorial etiology: * altered hemodynamics/hypotension * infection/early sepsis (RLE cellulitis +/- pneumonia) * prerenal factors * BEVERLEY-I use prior to admission * diuretic use prior to admission * other(?) * evaluation noted: * renal ultrasound without obstruction * urine electrolytes prerenal * CPK okay * urine eosinophils negative * follow repeat labs and UOP (2) Stage 3b chronic kidney disease: Code(s): N18.32 - Chronic kidney disease, stage 3b Status: Chronic Assessment and Plan: * baseline creatinine seems to run ~ 1.6 - 2.1mg/dl * last outpatient labs on 03/12/24 was 1.92mg/dl. * presumably due to his poorly controlled diabetes, hypertension, vascular disease (cardiomyopathy + hyperlipidemia + smoking) and age-related change (3) Sepsis: Code(s): A41.9 - Sepsis, unspecified organism Status: Acute Assessment and Plan: * presumed source being right lower extremity cellulitis +/- possible pneumonia * follow culture data * continue antibiotics * stable hemodynamics noted (4) Shock: Code(s): R57.9 - Shock, unspecified Status: Acute Assessment and Plan: * resolved * thought to be secondary to early sepsis and possible anaphylactic reaction * s/p IVFs resuscitation * off pinephrine gtt at this time * follow trend of hemodynamics (5) Anaphylaxis: Code(s): T78.2XXA - Anaphylactic shock, unspecified, initial encounter Status: Acute Assessment and Plan: * assumption secondary to vancomycin given symptoms began follwing IV infusion of this medication * s/p IM epinephrine and IV steroids x 1 * off epinephrine gtt at this time * off IVFs as well * follow symptoms and clinical status (6) Cellulitis: Code(s): L03.90 - Cellulitis, unspecified Status: Acute Assessment and Plan: * based on clinical exam on admission * on antibiotics * follow cultures * follow exam with current interventions (7) Syncope: Code(s): R55 - Syncope and collapse Status: Acute Assessment and Plan: * possibly due to anaphylatic reaction * known to have non-ischemic cardiomyopathy -- last Echo at [facility] with EF around 20% * repeat Echo here with improved EF around 40 - 45% * Cardiology following * follow telemetry (8) Diabetes mellitus type 2 with complications: Code(s): E11.8 - Type 2 diabetes mellitus with unspecified complications Status: Chronic Assessment and Plan: * poor control at baseline due to compliance issues * follows with [facility] Endocr[facility] * follow accu-cheks * glycemic control per 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 Subjective Date/time seen: 04/02/24 10:39 Interval history: Follow-up for acute kidney injury/acute renal failure on chronic kidney disease. Successfully extubated earlier this morning with relative stability in breathing/respiratory status; renal function/creatinine a tad worse but continues to make good urine output with improving hemodynamics (epinephrine gtt has been weaned off as well); no apparent distress noted; no other issues
[2024-04-02 11:29] LABS: Glucose Point of Care 131 mg/dl (65-105)
[2024-04-02] MEDS: POTASSIUM CHLORIDE 20 MEQ PACKET (FOR LIQUID) 40 MEQ FEED TUBE (11:33)
[2024-04-02] MEDS: ASPIRIN 325 MG TABLET PO (11:36)
[2024-04-02] MEDS: ATORVASTATIN 40 MG TABLET 80 MG PO (11:36)
[2024-04-02] MEDS: NICOTINE (*PBKC) 14 MG PATCH 1 PATCH TRANSDERM (13:22)
[2024-04-02 17:54] LABS: Glucose Point of Care 42 mg/dl (65-105)
[2024-04-02 18:18] LABS: Glucose Point of Care 74 mg/dl (65-105)
[2024-04-02] MEDS: HYDROcodone/acetaminophen (*CRX) 5-325 MG TABLET 1 TAB PO (20:00)
[2024-04-02 20:26] LABS: Glucose Point of Care 85 mg/dl (65-105)
[2024-04-02] MEDS: ACIDOPHILUS/BULGARICUS CHEWABLE TABLET 1 TABLET PO (21:28)
[2024-04-02] MEDS: LOPERAMIDE HCL 2 MG CAPSULE 4 MG PO (21:28)
[2024-04-02] MEDS: PSYLLIUM POWDER PACKET 1 PACKET PO (21:28)
[2024-04-03] VITALS (29 sets, daily range): BP systolic 109–157; BP diastolic 48–68; PULSE 20–93; RESP 15–20; TEMP 36–36.7; O2SAT 96–100
--- NOTE | 2024-04-03 00:01 | PC.NURSE ---
This patient is to be transferred to IMU in stable condition via bed. Report given to Ruchi PEREZ, all questions addressed. Per day shift RN central line to be left in place for 24 hours post D/C of pressure support. Charge aware.
[2024-04-03 00:35] LABS: Glucose Point of Care 70 mg/dl (65-105)
[2024-04-03] MEDS: CEFEPIME 2 GM/NS 50 ML 2 GM/50 ML BAG IVPB ×2 (00:47→12:46)
[2024-04-03] MEDS: ALBUTEROL SULFATE NEB 2.5 MG/3 ML INH INHALATION ×4 (02:01→20:18)
[2024-04-03 04:53] LABS: Glucose Point of Care 78 mg/dl (65-105)
[2024-04-03] MEDS: HYDROcodone/acetaminophen (*CRX) 5-325 MG TABLET 1 TAB PO ×2 (05:12→21:12)
[2024-04-03] MEDS: CENTRAL LINE FLUSH 10 ML IV PUSH ×3 (05:13→21:11)
[2024-04-03 05:16] LABS: Alveolar/Arterial O2 Gradient 12.4 mmHg; Base Excess ABG -4.1 mEq/l (+/-2.0); Carboxyhemoglobin 0.3 % THb (0-2.0); Fractional Inspired Oxygen 21 %; HCO3 ABG 19.7 mEq/l (22.0-26.0); Methemoglobin ABG 0.3 %THb (0-1.5); Oxygen Content ABG 15.1 %vol (16.0-22.0); Oxygen Saturation ABG 97.7 % (95.0-100.0); PCO2 ABG 31.6 mmHg (35.0-45.0); PO2 ABG 99.5 mmHg (80.0-100.0); PO2 FiO2 Ratio Arterial Blood 4.74 %; Reduced Hemoglobin 2.4 %THb (0-5.0); pH ABG 7.412 (7.350-7.450)
[2024-04-03 05:19] LABS: Modified Allen's Test Pass; Site Drawn RIGHT RADIAL
[2024-04-03 05:20] LABS: Device ROOM AIR
[2024-04-03 05:25] LABS: Hematocrit 31.9 % (42.0-52.0); Hemoglobin 10.3 g/dL (14.0-18.0); Mean Corpuscular HGB Conc 32.3 g/dl (32-36); Mean Corpuscular Hemoglobin 26.9 pg (26-34); Mean Corpuscular Volume 83.3 fl (80-100); Mean Platelet Volume 9.2 fl (7.4-10.4); Platelet Count Result 197 k/mm3 (150-375); Red Blood Count 3.83 M/mm3 (4.6-6.20); Red Cell Distribution Width 14.2 % (11.5-14.5); White Blood Count 7.6 K/mm3 (4.5-10.0)
[2024-04-03 05:38] LABS: Alanine Aminotransferase 14 U/L (6-50); Albumin Level 2.3 g/dL (3.5-5.1); Alkaline Phosphatase 62 U/L (38-126); Anion Gap 6 mmol/L (4-12); Aspartate Amino Transferase 17 U/L (17-59); Bilirubin,Total 0.2 mg/dL (0.2-1.3); Blood Urea Nitrogen 42 mg/dL (9-20); Calcium 7.4 mg/dL (8.4-10.2); Carbon Dioxide 23 mmol/L (22-30); Chloride 106 mmol/L (98-107); Estimated CRCL calculation 32 ml/min; Estimated Glomerular Filt Rate 26; Glucose 107 mg/dL (65-110); Magnesium 1.9 mg/dL (1.6-2.3); Potassium 3.8 mmol/L (3.4-5.0); Sodium 135 mmol/L (137-145)
[2024-04-03 08:57] LABS: Glucose Point of Care 84 mg/dl (65-105)
--- NOTE | 2024-04-03 10:01 | P.PNNP_ITS ---
Progress Note: A&P Assessment and Plan (1) Acute kidney injury: Code(s): N17.9 - Acute kidney failure, unspecified Status: Acute Assessment and Plan: * as noted by admission labs * recent ELEANOR/ARF at [facility] in January 2024 * creatinine was as high as 3.47mg/dl * down to 2.53mg/dl by time of discharge * suspect multifactorial etiology: * altered hemodynamics/hypotension * infection/early sepsis (RLE cellulitis +/- pneumonia) * prerenal factors * BEVERLEY-I use prior to admission * diuretic use prior to admission * other(?) * evaluation noted: * renal ultrasound without obstruction * urine electrolytes prerenal * CPK okay * urine eosinophils negative * follow repeat labs and UOP (2) Stage 3b chronic kidney disease: Code(s): N18.32 - Chronic kidney disease, stage 3b Status: Chronic Assessment and Plan: * baseline creatinine seems to run ~ 1.6 - 2.1mg/dl * last outpatient labs on 03/12/24 was 1.92mg/dl. * presumably due to his poorly controlled diabetes, hypertension, vascular disease (cardiomyopathy + hyperlipidemia + smoking) and age-related change (3) Sepsis: Code(s): A41.9 - Sepsis, unspecified organism Status: Acute Assessment and Plan: * presumed source being right lower extremity cellulitis +/- possible pneumonia * follow culture data * continue antibiotics * stable hemodynamics noted (4) Shock: Code(s): R57.9 - Shock, unspecified Status: Acute Assessment and Plan: * resolving * thought to be secondary to early sepsis and possible anaphylactic reaction * s/p IVFs resuscitation * off epinephrine gtt * follow trend of hemodynamics (5) Anaphylaxis: Code(s): T78.2XXA - Anaphylactic shock, unspecified, initial encounter Status: Acute Assessment and Plan: * assumption secondary to vancomycin given symptoms began follwing IV infusion of this medication * s/p IM epinephrine and IV steroids x 1 * off epinephrine gtt at this time * off IVFs as well * follow symptoms and clinical status (6) Cellulitis: Code(s): L03.90 - Cellulitis, unspecified Status: Acute Assessment and Plan: * based on clinical exam on admission * on antibiotics * follow cultures * follow exam with current interventions (7) Pneumonia: Code(s): J18.9 - Pneumonia, unspecified organism Status: Acute Assessment and Plan: * some suggestion by admission/recent imaging * follow culture data * on antibiotics (8) Syncope: Code(s): R55 - Syncope and collapse Status: Acute Assessment and Plan: * possibly due to anaphylatic reaction * known to have non-ischemic cardiomyopathy -- last Echo at [facility] with EF around 20% * repeat Echo here with improved EF around 40 - 45% * Cardiology following * follow telemetry (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 Subjective Date/time seen: 04/03/24 10:01 Interval history: Follow-up for acute kidney injury/acute renal failure on chronic kidney disease. Transferred out of ICU yesterday; renal function improving in associ
--- NOTE | 2024-04-03 10:01 | PM.PNNEP ---
Progress Note: A&P Assessment and Plan (1) Acute kidney injury: Code(s): N17.9 - Acute kidney failure, unspecified Status: Acute Assessment and Plan: as noted by admission labs recent ELEANOR/ARF at [facility] in January 2024 creatinine was as high as 3.47mg/dl down to 2.53mg/dl by time of discharge suspect multifactorial etiology: altered hemodynamics/hypotension infection/early sepsis (RLE cellulitis +/- pneumonia) prerenal factors BEVERLEY-I use prior to admission diuretic use prior to admission other(?) evaluation noted: renal ultrasound without obstruction urine electrolytes prerenal CPK okay urine eosinophils negative follow repeat labs and UOP (2) Stage 3b chronic kidney disease: Code(s): N18.32 - Chronic kidney disease, stage 3b Status: Chronic Assessment and Plan: baseline creatinine seems to run ~ 1.6 - 2.1mg/dl last outpatient labs on 03/12/24 was 1.92mg/dl. presumably due to his poorly controlled diabetes, hypertension, vascular disease (cardiomyopathy + hyperlipidemia + smoking) and age-related change (3) Sepsis: Code(s): A41.9 - Sepsis, unspecified organism Status: Acute Assessment and Plan: presumed source being right lower extremity cellulitis +/- possible pneumonia follow culture data continue antibiotics stable hemodynamics noted (4) Shock: Code(s): R57.9 - Shock, unspecified Status: Acute Assessment and Plan: resolving thought to be secondary to early sepsis and possible anaphylactic reaction s/p IVFs resuscitation off epinephrine gtt follow trend of hemodynamics (5) Anaphylaxis: Code(s): T78.2XXA - Anaphylactic shock, unspecified, initial encounter Status: Acute Assessment and Plan: assumption secondary to vancomycin given symptoms began follwing IV infusion of this medication s/p IM epinephrine and IV steroids x 1 off epinephrine gtt at this time off IVFs as well follow symptoms and clinical status (6) Cellulitis: Code(s): L03.90 - Cellulitis, unspecified Status: Acute Assessment and Plan: based on clinical exam on admission on antibiotics follow cultures follow exam with current interventions (7) Pneumonia: Code(s): J18.9 - Pneumonia, unspecified organism Status: Acute Assessment and Plan: some suggestion by admission/recent imaging follow culture data on antibiotics (8) Syncope: Code(s): R55 - Syncope and collapse Status: Acute Assessment and Plan: possibly due to anaphylatic reaction known to have non-ischemic cardiomyopathy -- last Echo at [facility] with EF around 20% repeat Echo here with improved EF around 40 - 45% Cardiology following follow telemetry (9) Diabetes mellitus type 2 with complications: Code(s): E11.8 - Type 2 diabetes mellitus with unspecified complications Status: Chronic Assessment and Plan: poor control at baseline due to compliance issues follows with [facility] End[facility] follow accu-cheks glycemic control per hospitalist/freight broker Will continue to follow. Subjective Date/time seen: 04/03/24 10:01 Interval history: Follow-up for acute kidney injury/acute renal failure on chronic kidney disease. Transferred out of ICU yesterday; renal function improving in association with excellent urine output and stable electrolytes; stable hemodynamics noted as well; no issues/events overnight or earlier this morning; no apparent distress noted. Exam Narrative: General: WD/WN male in NAD Heart: normal S1 and S2; no rub Lungs: clear anteriorly; coarse at bases Abdomen: soft, nontender, nondistended, positive bowel sounds Extremities: no cyanosis or clubbing; no edema; s/p left AKA Skin: chronic venous stasis changes along with some superficial wounds on RLE Objective Data Vital Signs Vital Si
[2024-04-03] MEDS: DOXYCYCLINE 100 MG/NS 100 ML 100 MG/100 ML BAG IVPB ×2 (11:12→21:10)
[2024-04-03] MEDS: PSYLLIUM POWDER PACKET 1 PACKET PO (11:12)
[2024-04-03] MEDS: ENOXAPARIN 40 MG/0.4 ML SYRINGE SUB-Q (11:12)
[2024-04-03] MEDS: ATORVASTATIN 40 MG TABLET 80 MG PO (11:12)
[2024-04-03] MEDS: NICOTINE (*PBKC) 14 MG PATCH 1 PATCH TRANSDERM (11:13)
[2024-04-03] MEDS: FAMOTIDINE 20 MG/2 ML VIAL IV PUSH ×2 (11:13→21:11)
[2024-04-03] MEDS: ASPIRIN 325 MG TABLET PO (11:13)
[2024-04-03] MEDS: ACIDOPHILUS/BULGARICUS CHEWABLE TABLET 1 TABLET PO ×2 (11:13→18:01)
[2024-04-03 12:00] LABS: Glucose Point of Care 113 mg/dl (65-105)
[2024-04-03] MEDS: LINEZOLID 600 MG/300 ML 600 MG/300 ML SOLN 300 MG IVPB (12:46)
--- NOTE | 2024-04-03 13:59 | PM.IMPN ---
Progress Note: A&P Assessment and Plan (1) Sepsis: Code(s): A41.9 - Sepsis, unspecified organism Status: Acute Assessment and Plan: Patient has sepsis with likely source of cellulitis of right leg and possible pneumonia as evidenced from chest x-ray Procalcitonin 2.0, UA negative, blood cultures negative to date In light of patient's possible anaphylactic reaction to vancomycin he was started on Zyvox which he is tolerating well. Continue on Zyvox cefepime and add doxycycline to cover for community-acquired pneumonia leukocytosis resolved (2) Shock: Code(s): R57.9 - Shock, unspecified Status: Acute Assessment and Plan: Patient is in shock which is likely combination of sepsis and possible anaphylaxis Patient received 2 L bolus in the ER. Continue IV fluids and change sedation to LR Will give additional 1 L bolus Continue epinephrine titration to maintain mean arterial pressure Off Levophed now (3) Anaphylaxis: Code(s): T78.2XXA - Anaphylactic shock, unspecified, initial encounter Status: Acute Assessment and Plan: Patient's symptoms started initially after starting vancomycin with possible anaphylactic reaction Patient was given 1 dose of steroids and epinephrine IM Continue epinephrine IV hemodynamic support Will give additional IV fluid bolus continue maintenance IV fluids Add albuterol nebulize Will hold further steroids (4) Cellulitis: Code(s): L03.90 - Cellulitis, unspecified Status: Acute Assessment and Plan: See above Patient was suspected of having DVT in the right leg although I do not appreciate significant swelling. Patient was given empiric anticoagulation in the ER. Doppler is negative (5) Chronic kidney disease, stage 4 (severe): Code(s): N18.4 - Chronic kidney disease, stage 4 (severe) Status: Acute Assessment and Plan: Patient has history of chronic kidney disease with last recorded creatinine and 1.3 in 2020. Baseline creatinine unknown. Presented with creatinine of 2.3 which may suggest ELEANOR Continue volume resuscitation CK level normal Check urine electrolytes Monitor urine output electrolytes and creatinine Check renal ultrasound Consult nephrology (6) Diabetes mellitus type 2 with complications: Code(s): E11.8 - Type 2 diabetes mellitus with unspecified complications Status: Chronic Assessment and Plan: Continue insulin Lantus A1c at 9 (7) Hypothyroidism: Code(s): E03.9 - Hypothyroidism, unspecified Status: Acute Assessment and Plan: TSH in acceptable range Continue levothyroxine (8) Syncope: Code(s): R55 - Syncope and collapse Status: Acute Assessment and Plan: Likely secondary to sepsis and possibly anaphylaxis No arrhythmias noticed Patient does have uncontrolled diabetes mellitus and may have underlying coronary disease EKG reviewed Continue serial troponin Add aspirin and resume statin Consult cardiology Echo with EF 45-50% grade 1 diastolic dysfunction basal inferior wall and mid inferior wall hypokinetic. Cardiology was consulted Nonischemic cardiomyopathy with previously severely reduced EF now 45-50%. Plan to resume GDM T as tolerated (9) Acute respiratory failure: Code(s): J96.00 - Acute respiratory failure, unspecified whether with hypoxia or hypercapnia Status: Acute Assessment and Plan: due to septic shock/anaphylaxis Plan DVT prophylaxis -Lovenox Stress ulcer prophylaxis -Pepcid Nutrition - npo Code Status - Full Code Subjective Date/time seen: 04/03/24 13:59 Interval history: patient was extubated yesterday and was transferred out of the ICU. No new complaints right leg is improving. Denies any abdominal and chest pain or shortness of breath Review of Systems Review of Systems: All systems reviewed & are unremarkable except as noted in HPI and below Exam Narrative: General: Pt i
[2024-04-03 17:06] LABS: Glucose Point of Care 129 mg/dl (65-105)
[2024-04-03 19:45] LABS: Glucose Point of Care 115 mg/dl (65-105)
[2024-04-04] VITALS (11 sets, daily range): BP systolic 146–158; BP diastolic 56–58; PULSE 74–92; RESP 14–18; TEMP 36.7; O2SAT 97–100
[2024-04-04] MEDS: LINEZOLID 600 MG/300 ML 600 MG/300 ML SOLN 300 MG IVPB ×2 (00:31→10:31)
[2024-04-04] MEDS: CEFEPIME 2 GM/NS 50 ML 2 GM/50 ML BAG IVPB ×2 (00:56→11:48)
[2024-04-04] MEDS: ALBUTEROL SULFATE NEB 2.5 MG/3 ML INH INHALATION ×2 (02:25→07:53)
[2024-04-04 04:48] LABS: Hematocrit 36.4 % (42.0-52.0); Hemoglobin 11.3 g/dL (14.0-18.0); Mean Corpuscular Hemoglobin 26.2 pg (26-34); Mean Corpuscular Volume 84.3 fl (80-100); Mean Platelet Volume 9.6 fl (7.4-10.4); Platelet Count Result 246 k/mm3 (150-375); Red Blood Count 4.32 M/mm3 (4.6-6.20); Red Cell Distribution Width 13.9 % (11.5-14.5); White Blood Count 9.5 K/mm3 (4.5-10.0)
[2024-04-04 04:59] LABS: Alanine Aminotransferase 15 U/L (6-50); Albumin Level 2.7 g/dL (3.5-5.1); Alkaline Phosphatase 77 U/L (38-126); Anion Gap 8 mmol/L (4-12); Aspartate Amino Transferase 18 U/L (17-59); Bilirubin,Total 0.3 mg/dL (0.2-1.3); Blood Urea Nitrogen 32 mg/dL (9-20); Calcium 7.9 mg/dL (8.4-10.2); Carbon Dioxide 21 mmol/L (22-30); Chloride 108 mmol/L (98-107); Estimated CRCL calculation 38 ml/min; Estimated Glomerular Filt Rate 32; Glucose 132 mg/dL (65-110); Potassium 4.2 mmol/L (3.4-5.0); Sodium 137 mmol/L (137-145)
[2024-04-04] MEDS: CENTRAL LINE FLUSH 10 ML IV PUSH (06:00)
[2024-04-04 07:43] LABS: Glucose Point of Care 142 mg/dl (65-105)
[2024-04-04] MEDS: SERTRALINE HCL 50 MG TABLET 100 MG PO (09:21)
[2024-04-04] MEDS: EZETIMIBE 10 MG TABLET PO (09:21)
[2024-04-04] MEDS: ATORVASTATIN 40 MG TABLET 80 MG PO (09:21)
[2024-04-04] MEDS: ACIDOPHILUS/BULGARICUS CHEWABLE TABLET 1 TABLET PO (09:21)
[2024-04-04] MEDS: ASPIRIN 325 MG TABLET PO (09:22)
[2024-04-04] MEDS: METOPROLOL SUCCINATE EXT REL 50 MG TABCR PO (09:22)
[2024-04-04] MEDS: NICOTINE (*PBKC) 14 MG PATCH 1 PATCH TRANSDERM (09:22)
[2024-04-04] MEDS: EMPAGLIFLOZIN 25 MG TABLET PO (09:22)
[2024-04-04] MEDS: ENOXAPARIN 40 MG/0.4 ML SYRINGE SUB-Q (09:22)
[2024-04-04] MEDS: FAMOTIDINE 20 MG/2 ML VIAL IV PUSH (09:23)
[2024-04-04] MEDS: DOXYCYCLINE 100 MG/NS 100 ML 100 MG/100 ML BAG IVPB (09:23)
--- NOTE | 2024-04-04 09:45 | PM.PNNEP ---
Progress Note: A&P Assessment and Plan (1) Acute kidney injury: Code(s): N17.9 - Acute kidney failure, unspecified Status: Acute Assessment and Plan: resolving if not back to baseline as noted by admission labs recent ELEANOR/ARF at [facility] in January 2024 creatinine was as high as 3.47mg/dl down to 2.53mg/dl by time of discharge suspect multifactorial etiology: altered hemodynamics/hypotension infection/early sepsis (RLE cellulitis +/- pneumonia) prerenal factors BEVERLEY-I use prior to admission diuretic use prior to admission other(?) evaluation noted: renal ultrasound without obstruction urine electrolytes prerenal CPK okay urine eosinophils negative follow repeat labs and UOP (2) Stage 3b chronic kidney disease: Code(s): N18.32 - Chronic kidney disease, stage 3b Status: Chronic Assessment and Plan: baseline creatinine seems to run ~ 1.6 - 2.1mg/dl last outpatient labs on 03/12/24 was 1.92mg/dl. presumably due to his poorly controlled diabetes, hypertension, vascular disease (cardiomyopathy + hyperlipidemia + smoking) and age-related change (3) Sepsis: Code(s): A41.9 - Sepsis, unspecified organism Status: Acute Assessment and Plan: clinically improving presumed source being right lower extremity cellulitis +/- possible pneumonia culture data noted on antibiotics stable hemodynamics noted (4) Shock: Code(s): R57.9 - Shock, unspecified Status: Acute Assessment and Plan: resolved thought to be secondary to early sepsis and possible anaphylactic reaction s/p IVFs resuscitation off epinephrine gtt follow trend of hemodynamics (5) Anaphylaxis: Code(s): T78.2XXA - Anaphylactic shock, unspecified, initial encounter Status: Acute Assessment and Plan: resolved assumption secondary to vancomycin given symptoms began follwing IV infusion of this medication s/p IM epinephrine and IV steroids x 1 off epinephrine gtt at this time off IVFs as well follow symptoms and clinical status (6) Cellulitis: Code(s): L03.90 - Cellulitis, unspecified Status: Acute Assessment and Plan: based on clinical exam on admission on antibiotics follow cultures - results noted follow exam with current interventions (7) Pneumonia: Code(s): J18.9 - Pneumonia, unspecified organism Status: Acute Assessment and Plan: some suggestion by admission/recent imaging follow culture data on antibiotics (8) Syncope: Code(s): R55 - Syncope and collapse Status: Acute Assessment and Plan: possibly due to anaphylatic reaction known to have non-ischemic cardiomyopathy -- last Echo at [facility] with EF around 20% repeat Echo here with improved EF around 40 - 45% Cardiology following follow telemetry (9) Diabetes mellitus type 2 with complications: Code(s): E11.8 - Type 2 diabetes mellitus with unspecified complications Status: Chronic Assessment and Plan: poor control at baseline due to compliance issues follows with [facility] End[facility] follow accu-cheks glycemic control per hospitalist/wood carver Will continue to follow. Subjective Date/time seen: 04/04/24 09:45 Interval history: Follow-up for acute kidney injury/acute renal failure on chronic kidney disease. Appears to be doing reasonably well; renal function/creatinine continue to improve as noted by trend of AM labs; no apparent distress voiced at the time of my visit; no issues/events overnight or earlier this morning; no other acute complaints to report. Exam Narrative: General: WD/WN male in NAD Heart: normal S1 and S2; no rub Lungs: clear anteriorly; slightly coarse at bases Abdomen: soft, nontender, nondistended, positive bowel sounds Extremities: no cyanosis or clubbing; no edema; s/p left AKA Skin: chronic venou
--- NOTE | 2024-04-04 09:45 | P.PNNP_ITS ---
Progress Note: A&P Assessment and Plan (1) Acute kidney injury: Code(s): N17.9 - Acute kidney failure, unspecified Status: Acute Assessment and Plan: * resolving if not back to baseline * as noted by admission labs * recent ELEANOR/ARF at [facility] in January 2024 * creatinine was as high as 3.47mg/dl * down to 2.53mg/dl by time of discharge * suspect multifactorial etiology: * altered hemodynamics/hypotension * infection/early sepsis (RLE cellulitis +/- pneumonia) * prerenal factors * BEVERLEY-I use prior to admission * diuretic use prior to admission * other(?) * evaluation noted: * renal ultrasound without obstruction * urine electrolytes prerenal * CPK okay * urine eosinophils negative * follow repeat labs and UOP (2) Stage 3b chronic kidney disease: Code(s): N18.32 - Chronic kidney disease, stage 3b Status: Chronic Assessment and Plan: * baseline creatinine seems to run ~ 1.6 - 2.1mg/dl * last outpatient labs on 03/12/24 was 1.92mg/dl. * presumably due to his poorly controlled diabetes, hypertension, vascular disease (cardiomyopathy + hyperlipidemia + smoking) and age-related change (3) Sepsis: Code(s): A41.9 - Sepsis, unspecified organism Status: Acute Assessment and Plan: * clinically improving * presumed source being right lower extremity cellulitis +/- possible pneumonia * culture data noted * on antibiotics * stable hemodynamics noted (4) Shock: Code(s): R57.9 - Shock, unspecified Status: Acute Assessment and Plan: * resolved * thought to be secondary to early sepsis and possible anaphylactic reaction * s/p IVFs resuscitation * off epinephrine gtt * follow trend of hemodynamics (5) Anaphylaxis: Code(s): T78.2XXA - Anaphylactic shock, unspecified, initial encounter Status: Acute Assessment and Plan: * resolved * assumption secondary to vancomycin given symptoms began follwing IV infusion of this medication * s/p IM epinephrine and IV steroids x 1 * off epinephrine gtt at this time * off IVFs as well * follow symptoms and clinical status (6) Cellulitis: Code(s): L03.90 - Cellulitis, unspecified Status: Acute Assessment and Plan: * based on clinical exam on admission * on antibiotics * follow cultures - results noted * follow exam with current interventions (7) Pneumonia: Code(s): J18.9 - Pneumonia, unspecified organism Status: Acute Assessment and Plan: * some suggestion by admission/recent imaging * follow culture data * on antibiotics (8) Syncope: Code(s): R55 - Syncope and collapse Status: Acute Assessment and Plan: * possibly due to anaphylatic reaction * known to have non-ischemic cardiomyopathy -- last Echo at [facility] with EF around 20% * repeat Echo here with improved EF around 40 - 45% * Cardiology following * follow telemetry (9) Diabetes mellitus type 2 with complications: Code(s): E11.8 - Type 2 diabetes mellitus with unspecified complications Status: Chronic Assessment and Plan: * poor control at baseline due to compliance issues * follows with [facility] End[facility] * follow accu-cheks * glycemic control per hospitalist/television cable installer Will continue to follow. Subjective Date/time seen: 04/04/24 09:45 Interval history: Follow-up for acute kidney injury/acute renal failure on chronic ki
[2024-04-04 11:47] LABS: Glucose Point of Care 228 mg/dl (65-105)
[2024-04-04] MEDS: INSULIN ASPART (*BKC) 100 UNITS/ML SUB-Q (11:48)
--- NOTE | 2024-04-04 11:57 | PM.DS ---
DS: Admitting Diagnosis Discharge Date 04/04/2024 Admitting Diagnosis Sepsis DS: Discharge Diagnosis Discharge Diagnosis (1) Sepsis: Code(s): A41.9 - Sepsis, unspecified organism Status: Acute (2) Shock: Code(s): R57.9 - Shock, unspecified Status: Acute (3) Anaphylaxis: Code(s): T78.2XXA - Anaphylactic shock, unspecified, initial encounter Status: Acute (4) Cellulitis: Code(s): L03.90 - Cellulitis, unspecified Status: Acute (5) Chronic kidney disease, stage 4 (severe): Code(s): N18.4 - Chronic kidney disease, stage 4 (severe) Status: Acute (6) Diabetes mellitus type 2 with complications: Code(s): E11.8 - Type 2 diabetes mellitus with unspecified complications Status: Chronic (7) Hypothyroidism: Code(s): E03.9 - Hypothyroidism, unspecified Status: Acute (8) Syncope: Code(s): R55 - Syncope and collapse Status: Acute (9) Acute respiratory failure: Code(s): J96.00 - Acute respiratory failure, unspecified whether with hypoxia or hypercapnia Status: Acute DS: Summary Hospital Course Hospital Course: # Sepsis: Patient has sepsis with likely source of cellulitis of right leg and possible pneumonia as evidenced from chest x-ray Procalcitonin 2.0, UA negative, blood cultures negative to date In light of patient's possible anaphylactic reaction to vancomycin he was started on Zyvox which he is tolerating well. Continue on Zyvox cefepime and add doxycycline to cover for community-acquired pneumonia leukocytosis resolved Will transition to oral antibiotics targeted to cellulitis. Nasal MRSA is negative. Doxycycline oral will cover for community-acquired pneumonia as well as MRSA cellulitis. Cefepime will be switched to cefdinir at discharge # Shock: Patient is in shock which is likely combination of sepsis and possible anaphylaxis after receiving vancomycin Patient received 2 L bolus in the ER. Continue IV fluids and change sedation to LR Will give additional 1 L bolus Continue epinephrine titration to maintain mean arterial pressure Off Levophed now and remains stable # Anaphylaxis: Patient's symptoms started initially after starting vancomycin with possible anaphylactic reaction Patient was given 1 dose of steroids and epinephrine IM Continue epinephrine IV hemodynamic support Will give additional IV fluid bolus continue maintenance IV fluids Add albuterol nebulize Will hold further steroids #Cellulitis: See above Patient was suspected of having DVT in the right leg although I do not appreciate significant swelling. Patient was given empiric anticoagulation in the ER. Doppler is negative Stack Chronic kidney disease, stage 4 (severe): Patient has history of chronic kidney disease with last recorded creatinine and 1.3 in 2020. Baseline creatinine unknown. Presented with creatinine of 2.3 which may suggest ELEANOR Continue volume resuscitation CK level normal Check urine electrolytes Monitor urine output electrolytes and creatinine Check renal ultrasound Consult nephrology use to improve Follow-up as an outpatient basis #Diabetes mellitus type 2 with complications: Continue insulin Lantus A1c at 9 # Hypothyroidism: TSH in acceptable range Continue levothyroxine # Syncope: Likely secondary to sepsis and possibly anaphylaxis No arrhythmias noticed Patient does have uncontrolled diabetes mellitus and may have underlying coronary disease EKG reviewed Continue serial troponin Add aspirin and resume statin Consult cardiology Echo with EF 45-50% grade 1 diastolic dysfunction basal inferior wall and mid inferior wall hypokinetic. Cardiology was consulted Nonischemic cardiomyopathy with previously severely reduced EF now 45-50%. Plan to resume GDM T as tolerated # Acute respiratory failure: due to septic shock/anaphylaxis. Resolved and on room air # DVT prophylaxis -Lovenox # Stress ulcer
== END 2024-04-04 12:55 | disposition home or self-care (01) | DRG 871 ==
LOC: ANHED 04-01 02:11 → ANHICU 04-01 04:45 → ANHIMU 04-03 00:22
PROVIDERS: Emergency Medicine; Internal Medicine; Internal Medicine Nephrology; Admitting Provider Internal Medicine; Emergency Provider Physician Assistant; PCP Family Medicine; Visit Provider Internal Medicine
DX: A41.9 Sepsis, unspecified organism (principal); J18.9 Pneumonia, unspecified organism; J96.00 Acute respiratory failure, unspecified whether with hypoxia or hypercapnia; R65.21 Severe sepsis with septic shock; T88.6XXA Anaphylactic reaction due to adverse effect of correct drug or medicament properly administered, initial encounter; L03.115 Cellulitis of right lower limb; N17.9 Acute kidney failure, unspecified; N18.4 Chronic kidney disease, stage 4 (severe); I42.9 Cardiomyopathy, unspecified; T36.8X5A Adverse effect of other systemic antibiotics, initial encounter; I12.9 Hypertensive chronic kidney disease with stage 1 through stage 4 chronic kidney disease, or unspecified chronic kidney disease; E11.22 Type 2 diabetes mellitus with diabetic chronic kidney disease; E11.51 Type 2 diabetes mellitus with diabetic peripheral angiopathy without gangrene; E11.65 Type 2 diabetes mellitus with hyperglycemia; E03.9 Hypothyroidism, unspecified; E78.5 Hyperlipidemia, unspecified; F17.210 Nicotine dependence, cigarettes, uncomplicated; Z79.4 Long term (current) use of insulin; Z89.612 Acquired absence of left leg above knee; Z91.148 Patient's other noncompliance with medication regimen for other reason; Z79.891 Long term (current) use of opiate analgesic
CPT/HCPCS: 31500; 36415; 36556; 36600; 71045; 73590; 76775; 80048; 80053; 80307; 81001; 82375; 82550; 82570; 82805; 82948; 83036; 83050; 83605; 83735; 83880; 84145; 84300; 84443; 84484; 85025; 85027; 85380; 85610; 85730; 85999; 86140; 87040; 87641; 93005; 93971; 94002; 94003; 94640; 96361; 96365; 96367; 96372; 96375; 99285; A9270; C1751; C8929; G0378; J0171; J0330; J0613; J0692; J1200; J1650; J1815; J2020; J2060; J2250; J2270; J2405; J2919; J3010; J3370; J7030; J7060; J7120; Q9957

== ENCOUNTER 2024-11-25 08:51 | Outpatient (CLI) | payer MEDICARE, MEDICAID, SELFPAY ==
--- NOTE | ~2024-11-25 | XR_ITS ---
CHEST RADIOGRAPH, PA AND LATERAL CLINICAL HISTORY: Cough . COMPARISON: 04/04/2024 TECHNIQUE: PA and lateral views of the chest. FINDINGS The cardiomediastinal silhouette is enlarged, an interval change. Increased interstitial markings are identified bilaterally, findings suggesting mild pulmonary vascul ar congestion. Hazy opacification of the bilateral hemidiaphragms, findings consistent with large bilateral pleural effusions, an interval change from prior. The remainder of the lungs are clear. IMPRESSION: Findings suggesting congestive failure, as detailed above. Reviewed, dictated and finalized at location A. NG ROOM BUSSER
== END 2024-11-25 08:52 | disposition home or self-care (01) ==
LOC: MICIMG 08:52
PROVIDERS: PCP Registered Nurse; Visit Provider Registered Nurse
DX: J96.00 Acute respiratory failure, unspecified whether with hypoxia or hypercapnia (principal)
CPT/HCPCS: 71046

== ENCOUNTER 2024-11-26 20:00 | Emergency (ER) | payer MEDICARE, MEDICAID, SELFPAY ==
--- NOTE | ~2024-11-26 | XR_ITS ---
XR chest 2V Ordering provider: Agustin White MD History: 64 years Male with . CHEST PAIN . Comparison: November 25, 2024 FINDINGS: MEDIASTINUM: The cardiac silhouette is moderately enlarged. Congestive sarah beth. LUNGS: No pneumothorax. Bilateral basal atelectasis versus pneumonia with minimal pleural effusion. M inimal interstitial changes seen bilaterally which may indicate pneumonitis versus edema. OTHER: No free air under the diaphragm. IMPRESSION: Bilateral basal atelectasis versus pneumonia with minimal effusion. Bilateral interstitial thickening which may indicate pneumonitis versus edema. Clinical correlation a dvised. No significant change from previous examination. Reviewed, dictated and finalized at location [facility]. [facility]ER IMPRESSION: Bilateral basal atelectasis versus pneumonia with minimal effusion. Bilateral interstitial thickening which may indicate pneumonitis versus edema. Clinical correlation advised. No significant change from previous examination.
--- NOTE | 2024-11-26 20:01 | ECG_ITS ---
Test Date: 2024-11-26 20:13:07 Measurements Intervals Dixon Rate: 82 P: 6 MO: 179 QRS: 58 QRSD: 109 T: 3 QT: 408 QTc: 478 Interpretive Statements SINUS RHYTHM NONSPECIFIC T-WAVE ABNORMALITY LONG QT INTERVAL ABNORMAL ECG Compared to ECG 04/01/2024 03:22:35 T-WAVE ABNORMALITY IS IMPROVED Electronically Signed On 11-27-2024 15:41:02 [employer]UR[employer] INSPECT[employer] by Curt Pacheco M.D.
--- OUTSIDE RECORDS SUMMARY | 2024-11-26 20:03 | XMS_ITS | Data Portability ---
Author Organization [place] - [facility] auto[facility] - [facility] [place] Address [address] [place] [address] Assessment Encounter Date Assessment Date Assessment LastModified by Organization Details LastModified Time 2023 2023 I am seeing this patient today virtually using HIPPA-compliant videoconferencing technology. The patient has provided consent to use this technology and understands the risks and benefits of proceeding. The documentation details a telehealth encounter with the patient on this date of service. Audio and video communications were used during this encounter to provide a [id number] interactive encounter. Components of this encounter are a culmination of visual and patient-assisted findings. [email or web address] Not available 2023 15:13:18 09/05/2023 09/05/2023 Pt here with bel ow diagnosis - pt here for evaluation for their condition, evaluation of their medication use, and discussion for alternative treatments. [email or web address] Not available 09/05/2023 11:11:28 Plan of Treatment Reminders Order Date Submit Date Provider Last Modified By Organization Details Last Modified Time Details Appointments None record ed. Lab None record ed. Referral None record ed. Procedures None record ed. Surgeries None record ed. Imaging None record ed. Medication Orders None record ed. Patient TargetsNo targets recorded. Patient Instructions Encounter Date Encounter Id Patient Instructions Last Modified By Organization Details Last Modified Time 2023 [id number] I have discussed the risks and benefits of Medical Marijuana. Pt understands I am not prescribing this medication. I am certifying that this patient has a condition that is recognized by the state as qualifying for medical marijuana and this recommendation does not constitute a prescription for medical cannabis. Pt understands that my physician written certification form does not guarantee Medical Marijuana certification nor does it endorse the patient as needing medical marijuana. Patient understands that Medical Marijuana is a drug that the federal government has classified cannabis as a Schedule I controlled substance. Schedule 1 substances are defined, in part, as having (1) a high potential for abuse; (2) no currently accepted medical use in treatment in the [place]; and (3) a lack of accepted Safety for use under medical supervision. Federal law prohibits the manufacture, distribution and possession of cannabis even in states, which have modified their state laws to treat cannabis as a medicine. Pt also agrees that me, and the [facility] are my treating physicians and that we are in charge of treating the patient's conditions and that the patient will make a good fabiola effort to remain under my treatment plan and acknowledge there will be follow up visits from this date forward to monitor the patient's condition. Discussed risks and benefits of Medical Marijuana. I have spent time discussing the patients condition, pain/medical management of the patient given their debilitating condition, the risks and benefits of this medication, a history and physical, gathering old medical records to look at the disease processes being evaluated, and answering of all questions. [email or web address] Not available 2023 15:13:24 09/05/2023 [id number] I have discussed the risks and benefits of Medical Marijuana. Pt understands I am not prescribing this medication. I am certifying that this patient has a condition that is recognized by the state as qualifying for medical marijuana and this recommendation does not constitute a prescription for medical cannabis. Pt understands that my physician written certification form does not guarantee Medical Marijuana certification nor does it endorse the patient as needing medical marijuana. Patient understands that Medical Marijuana is a drug that the federal government has classified cannabis as a Schedule I controlled substance. Schedule 1 substances are defined, in part, as having (1) a high potential for abuse; (2) no currently accepted medical use in treatment in the [place]; and (3) a lack of accepted Safety for use under medical supervision. Federal law prohibits the manufacture, distribution and possession of cannabis even in states, which have modified their state laws to treat cannabis as a medicine. Pt also agrees that me, and the [facility] are my treating physicians and that we are in charge of treating the patient's conditions and that the patient will make a good fabiola effort to remain under my treatment plan and acknowledge there will be follow up visits from this date forward to monitor the patient's condition. Discussed risks and benefits of Medical Marijuana. I have spent time discussing the patients condition, pain/medical management of the patient given their debilitating condition, the risks and benefits of this medication, a history and physical, gathering old medical records to look at the disease processes being evaluated, and answering of all questions. [email or web address] Not available 09/05/2023 11:11:28 Reason for Referral None Reported. Procedures Surgical History Date Name Laterality Status Provider Name and Address Organization Details Recorded Time Amputation completed PRECIOUS SOUZA PA-C [address], [address], [place], [address], [facility] 2023 15:13:44 Imaging Results None recorded. Procedure Notes None recorded. Medical Equipment None Reported. Allergies No known drug allergies Medications Name Sig Start Date Stop Date Status Note LastModified by Organization Details LastModified Time atorvastatin 80 mg tablet active Not Available Not Available Not Available hydrocodone 5 mg-acetamino phen 325 mg tablet TAKE 1 TABLET BY MOUTH THREE TIMES DAILY NEEDED active Not Available Not Available No t Available prednisone 20 mg tablet TAKE 2 TABLETS BY MOUTH ONCE DAILY FOR 5 DAYS. active Not Available Not Available No t Available permethrin 5 % topical cream APPLY THIN LAYER TO ALL SKIN SURFACES FROM NECK TO TOES FOR 8-14HOURS THEN WASH OFF. REAPPLY IN 1 WK active Not Available Not Available No t Available OneTouch Ultra Test strips active Not Available Not Available Not Available amlodipine 10 mg tablet active Not Available Not Available Not Available cephalexin 500 mg capsule TAKE 1 CAPSULE BY MOUTH TWICE A DAY active Not Available Not Available No t Available levothyroxin e 125 mcg tablet TAKE 2 TABS DAILY FIRST THING IN THE MORNING ON EMPTY STOMACH active Not Available Not Available No t Available prednisone 50 mg tablet TAKE 1 TABLET BY MOUTH EVERY DAY active Not Available Not Available No t Available orphenadrine citrate ER 100 mg tablet,exten ded release TAKE 1 TABLET BY MOUTH TWICE A DAY FOR 30 DAYS active Not Available Not Available No t Available diclofenac potassium 50 mg tablet TAKE 1 TABLET BY MOUTH TWICE A DAY NEEDED FOR PAIN active Not Available Not Available No t Available lisinopril 30 mg tablet active Not Available Not Available Not Available hydrochlorot hiazide 25 mg tablet active Not Available Not Available No t Available diclofenac sodium 50 mg tablet,delay ed release TAKE 1 TABLET BY MOUTH TWICE A DAY FOR 30 DAYS active Not Available Not Available No t Available amoxicillin 500 mg-potassium clavulanate 125 mg tablet TAKE 1 TABLET BY MOUTH TWICE A DAY active Not Available Not Available No t Available ezetimibe 10 mg tablet TAKE 1 TABLET BY MOUTH EVERY DAY active Not Available Not Available No t Available rosuvastatin 40 mg tablet TAKE 1 TABLET BY MOUTH EVERY DAY active Not Available Not Available No t Available Lantus Solostar U-100 Insulin 100 unit/mL (3 mL) subcutaneous pen 30 UNIT (0.3 ML) SUBCUTANEOU SLY TWICE A DAY 30 UNITS IN THE MORNING AND 30 UNITS AT NIGHT active Not Available Not Available No t Available sodium,potas sium,mag sulfates 17.5 gram-3.13 gram-1.6 gram oral soln TAKE DIRECTED active Not Available Not Available No t Available Farxiga 10 mg tablet TAKE 1 TABLET BY MOUTH EVERY DAY IN THE MORNING active Not Available Not Available No t Available Jardiance 25 mg tablet active Not Available Not Available No t Available Trulicity 1.5 mg/0.5 mL subcutaneous pen injector active Not Available Not Available Not Available Trulicity 0.75 mg/0.5 mL subcutaneous pen injector INJECT 0.75 MG UNDER THE SKIN ONCE A WEEK active Not Available Not Available Not Available Baqsimi 3 mg/actuation nasal spray 3 MG INTRANASALL Y ONCE A SINGLE DOSE active Not Available Not Available Not Available Lyumjev KwikPen U-100 Insulin 100 unit/mL subcutaneous PLEASE SEE ATTACHED FOR DETAILED DIRECTIONS active Not Available Not Available N ot Available Dexcom G7 Typewriter Assembler USE TO TEST CONTINUOUSL Y active Not Available Not Available No t Available Dexcom G7 Sensor device USE FOR BLOOD GLUCOSE MONITORING active Not Available Not Available N ot Available Vitals None Recorded Social History None recorded. Functional Status None recorded. Mental Status None recorded. Family History Relationship Description Onset Age of this Age Resolved Age Notes LastModified by Organization Details LastModified Time Mother Diabetes mellitus [email or web address] Not available 09/01 15:13:44 Brother Diabetes mellitus [email or web address] Not available 09/01 15:13:44 Sister Diabetes mellitus [email or web address] Not available 09/01 15:13:44 Father Diabetes mellitus [email or web address] Not available 09/01 15:13:44 Medical History Condition Response Arthritis Y Past Encounters Encounter ID Performer Location Encounter Start Date Encounter Closed Date Diagnosis/Indication Diagnosis SNOMED-CT Code Diagnosis ICD10 Code Diagnosis Note [id number] PRECIOUS SOUZA PA-C [facility] [address] [place] [address] 2023 15:12:05 2023 16:44:03 Chronic pain 36490951 G89.29 continue seeing your specialist s and primary care provider. patient agreed with plan and verbalized understand ing. [id number] [facility] [address] [place] [address] 09/05/2023 11:10:39 09/05/2023 11:29:42 Chronic pain 14661374 G89.29 Health Concerns Section Related Observation LastModified by Organization Detai ls LastModified Time None Recorded Concern Status LastModified by Organization Details LastModified Time None Recorded Advance Directives Directive None Recorded Payers Encounter Date Sequence Insurance Name Policy Number Policy Asher Covered Member ID Asher Member ID Guarantor Name [id number] [facility] (MEDICARE REPLACEMENT/A DVANTAGE - PPO) [id number] Jose Castroehaus [id number] Jose Mckinney 09/05/[address] [facility] (MEDICARE REPLACEMENT/A DVANTAGE - PPO) [id number] Jose Castroehaus [id number] Jose Mckinney Notes Date Note Type Note Provider Name and Address Organization Details Recorded Time 2023 text/html 63 yo male presents for chronic pain evaluation. Patient reports pain in the neck, bilateral shoulder, hip, hand and ankle for 3 years. He describes the pain as sharp, achy, pain that is constant. He takes hydrocodone 5mg and has little relief. Pain is described as daily, impacting pain/wellness/slee p. Pt denies all neuro deficits including bowel/bladder incontinence or extremity numbness/weakness. PRECIOUS SOUZA PA-C [address], [place], [address], [place] - [facility] 2023 15:24:17 09/05/2023 text/html The patient woul d like to discuss medications, the disease, and how to handle it. Pt would also like to discuss alternative treatments to this condition. Pt was referred here for further evaluation and treatment if necessary. Patient has a diagnosis of qualifying condition - CHRONIC PAIN MIKE ESQUIVEL [address], [address], [place], [address], [place] - [facility] 09/05/2023 11:12:50
--- OUTSIDE RECORDS SUMMARY | 2024-11-26 20:03 | XMS_ITS | Referral Summary ---
Author Organization [facility] Address [address] [place] [address] Phone Care Team Providers Care Outsole Cementer Name Role Phone Adair Rascon MD Unavailable Jane Rodriguez MD, Juan Duff Unavailable [phone] Amilcar Womack MD Primary Care Provider Allergies Active Allergy Reactions Criticality Noted Date Comments Vancomycin Hypotension High 04/01/2024 Given vancomycin for sepsis, became hypotensive and shocky Medications HYDROcodone-ac etaminophen (NORCO) 5-325 mg per tabletIndicati ons:Pain Take 1 tablet by mouth every 8 (eight) hours as needed for pain 15 tablet 0 Active OneTouch Ultra Blue Test Strip strip 0 Active orphenadrine ER (NORFLEX) 100 mg 12 hr tablet 1 tablet (100 mg total) 2 (two) times a day as needed for pain 3 Active Dexcom G7 Roustabout Pusher misc 1 each continuously Dx:E11.65 insulin dependent 1 each 3 Active pen needle, diabetic (Pen Needle) 31 gauge x 5/16 needle To use to inject insulin 5 times every day Dx E11.65 500 each 3 3 Active empagliflozin (Jardiance) 25 mg tablet TAKE 1 TABLET BY MOUTH DAILY 30 tablet 4 Active levothyroxine (SYNTHROID) 125 mcg tablet Take 2 tablets (250 mcg total) by mouth lion trainer before breakfast Active albuterol HFA (PROVENTIL HFA,VENTOLIN HFA,PROAIR HFA) 90 mcg/actuation inhaler Inhale 2 puffs every 6 (six) hours as needed for wheezing Active ezetimibe (ZETIA) 10 mg tablet Take 1 tablet (10 mg total) by mouth daily Active atorvastatin (LIPITOR) 80 mg tablet Take 1 tablet (80 mg total) by mouth daily 30 tablet 1 4 Active furosemide (LASIX) 80 mg tablet Take 1 tablet (80 mg total) by mouth daily 30 tablet 1 4 Active Additional Information Patient taking differently:80 mg oralAs needed, edema, Informant: Self, Reported on 06/04/2024 blood-glucose meter,continuo us (Dexcom G7 Roustabout Pusher) misc 1 Units by abdominal subcutaneous route as needed Pt to start dexcom use after 03/17/24. Active sertraline (ZOLOFT) 100 mg tablet Take 1 tablet (100 mg total) by mouth daily 4 Active hydrOXYzine (ATARAX) 50 mg tablet Take 1 tablet (50 mg total) by mouth nightly 4 Active OneTouch Ultra Test strip Active metoprolol XL (TOPROL-XL) 50 mg extended release tablet Take 1 tablet (50 mg total) by mouth daily 30 tablet 11 4 025 Active sacubitriL-sara sartan (Entresto) 24-26 mg tablet TAKE 1 TABLET BY MOUTH TWICE A DAY 60 tablet 11 4 Active Kerendia 10 mg tablet Take 1 tablet by mouth daily 4 Active HumaLOG 100 unit/mL vial for injection 1 SLIDING SCALE DOSE SUBCUTANEOUSLY USE DIRECTED FOR INSULIN PUMP, MAX DAILY DOSE: 90 4 Active blood-glucose sensor (Dexcom G7 Sensor) deviceIndicati ons:Type 2 diabetes mellitus with hyperglycemia, with long-term current use of insulin (HCC) USE FOR BLOOD GLUCOSE MONITORING 3 each 4 Active Active Problems Problem Noted Date Diagnosed Date Tobacco dependence 03/05/2024 Peripheral vascular disease 03/05/2024 Heart failure with reduced ejection fraction Acute on chronic kidney failure 02/11/2024 Hypothyroidism 02/11/2024 Cellulitis of right lower extremity 02/11/2024 Controlled type 2 diabetes m alvina with stage 3 chronic kidney disease, with long-term current use of insulin 06/22/2020 Assessment & Plan (12/26/2022 4:18 PM CDT): Chronic, continues to be very poorly controlled due to poor compliance I encouraged the patient to restart taking his medication regularly and he said he will try Continue Jardiance, Lantus and Humalog Prescriptions were sent Will try to see if he can get Lantus and Humalog in pen devices Also start monitoring glucose with Dexcom CGM. Prescription for Dexcom G 7 was sent Assessment & Plan (05/23/2022 10:04 AM CDT): Chronic problem, not at goal. He has not been taking any of his injectable medications but recognizes that he needs to resume doing so. We reviewed his dosing. Schedule eye exam. Assessment & Plan (11/06/2021 11:43 AM [employer]): Hba1c was Lab Results Component Value Date HGBA1C 13.6 11/06/2021 today, indicating very poor DM control Goal Hba1c and blood glucose explained Diet and exercise were advised Prevention and treatment of hyypoglcyemia were discussed with the patient Blood glucose monitoring : 3 x day Adjustment to medications: Check your sugars before meals Take your insulin regularly Take Humalog, 20 units before meals For sugars over 200, take 25 units Restart Jardiance Assessment & Plan (05/17/2021 9:12 AM CDT): A1c greatly improved to 7.2 from 13.3. Reduce Lantus by 2 units each injection. Continue other medications as prescribed. Assessment & Plan (01/25/2021 3:48 PM CDT): A1c 13.3 d/t not taking medication, checking BG or following meal plan. Denies depression. To discuss motivation issues with PCP. Resume current medication plan. Check BG tid ac and send in BG log q 2 weeks. May benefit from Omnipod pump. Provided with brochure and if no improvement NOV, will order. Assessment & Plan (06/23/2020 11:44 AM CDT): A1c 9.7. Many concepts re: medication and diet. Advised to increase Lantus by 2 units q injection. Provided with instructions to increase to goal < 150. Cannot convince to change how he determines Humalog dose. Continue Jardiance and Trulicity. Dyslipidemia due to type 2 diabetes mellitus 06/2019 Assessment & Plan (12/26/2022 4:19 PM CDT): LDL goal under 70 Update lipid profile Continue simvastatin Assessment & Plan (05/23/2022 9:58 AM CDT): Chronic problem. On statin therapy, no changes. Back on it consistently now per pt. Assessment & Plan (11/06/2021 11:43 AM [employer]): Check lipids Continue Lipitor Assessment & Plan (05/17/2021 10:49 AM CDT): Check lipid panel today Assessment & Plan (01/25/2021 3:46 PM CDT): At goal on current medications. Continue statin therapy. Assessment & Plan (06/22/2020 12:49 PM CDT): At goal on current medications. Continue statin therapy. Assessment & Plan (11/18/2019 4:51 PM [employer]): Goal of treatment , LDL cholesterol less than 100 ( less than 70 in patients with history of heart attacks and / or strokes ) NonHDL cholesterol ( total cholesterol minus HDL cholesterol ) goal less than 130 ( less than 100 in patients with history of heart attacks and / or strokes ) Low cholesterol, low fat diet was discussed and advised. Daily exercise On statin therapy with Lipitor Assessment & Plan (07/01/2019 3:20 PM CDT): Goal of treatment , LDL cholesterol less than 100 ( less than 70 in patients with history of heart attacks and / or strokes ) NonHDL cholesterol ( total cholesterol minus HDL cholesterol ) goal less than 130 ( less than 100 in patients with history of heart attacks and / or strokes ) Low cholesterol, low fat diet was discussed and advised. Daily exercise On statin therapy Lipid profile checked today Essential (primary) hypertension 07/01/2019 Assessment & Plan (12/26/2022 4:18 PM CDT): Chronic, well-controlled Continue current medications including lisinopril Update GFR and MA Assessment & Plan (05/23/2022 9:57 AM CDT): Controlled on current medications, no changes. Assessment & Plan (05/17/2021 10:44 AM CDT): Controlled on current medications. Continue plan. Assessment & Plan (01/25/2021 3:47 PM CDT): Controlled on current medications. Continue plan. Assessment & Plan (06/22/2020 12:49 PM CDT): Controlled on current medications. Continue plan. 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 Your goal sugars are in the 90-130 range Exercise recommendations: It is recommended that you do daily aerobic ( walking, riding a bike, swimming ) and resistance exercises ( light weight lifting, resistance band stretching ) for at least 30 minutes , most days of the week. If you can not walk, chair exercises for 10-15 min a day would help tremendously. As little as 15-20 minutes exercise , in one or two sessions a day, is still very helpful to improve your diabetes control . Diet recommendations: Eat small portion meals, trying not to consume more than 1800 calories a day . Try to eat not more than than 2 servings of carbs ( starches ) wiith your meals. Avoid soft drinks, including regular sodas , fruit juices and sweetened tea. Drink water instead. Eat plenty of green and leafy vegetables, including salads. Medications: Take your medications regularly. Setting phone alarms can help . Keep your medication on the kitchen dinner table, by the bedside table or by the sink where they are visible to you. If you are taking insulin : the insulin that you are currently using does not need to be refrigerated. Keep it where you can see it . Monitor your sugar levels with finger sticks regularly and keep a log sheet or book. Bring your sugar meter and /or a log book or log sheet to every office visit. Take some insulin to your daughter's house, and keep it there so you take it Take Lantus 50 units twice day, bedtime and in the morning. Take Humalog, 12 units with meals For sugars over 150, take 14 units For sugars over 200, take 16 units For sugars over 250, take 18 units For sugars over 300, take 20 units For sugars over 350, take 25 units Stay on Jardiance and Trulicity. Assessment & Plan (07/01/2019 3:20 PM CDT): Your Hba1c today was: Lab Results Component Value Date HGBA1C 8.4 07/01/2019 meaning a 3 month average sugar of : Your goal hba1c is under 7.0 to prevent intermediate school teacher diabetes complications ( eye , kidney and nerve damage ) . Your goal sugars are in the 90-130 range Exercise recommendations: It is recommended that you do daily aerobic ( walking, riding a bike, swimming ) and resistance exercises ( light weight lifting, resistance band stretching ) for at least 30 minutes , most days of the week. If you can not walk, chair exercises for 10-15 min a day would help tremendously. As little as 15-20 minutes exercise , in one or two sessions a day, is still very helpful to improve your diabetes control . Diet recommendations: Eat small portion meals, trying not to consume more than 1800 calories a day . Try to eat not more than than 2 servings of carbs ( starches ) wiith your meals. Avoid soft drinks, including regular sodas , fruit juices and sweetened tea. Drink water instead. Eat plenty of green and leafy vegetables, including salads. Medications: Take your medications regularly. Setting phone alarms can help . Keep your medication on the kitchen dinner table, by the bedside table or by the sink where they are visible to you. If you are taking insulin : the insulin that you are currently using does not need to be refrigerated. Keep it where you can see it . Monitor your sugar levels with finger sticks regularly and keep a log sheet or book. Bring your sugar meter and /or a log book or log sheet to every office visit. Stay on Lantus 50 units twice a day Take Humalog, only with dinner, 12 units Increase Jardiance, 25 mg daily Assessment & Plan (05/13/2019 1:53 PM CDT): Your Hba1c today was: Lab Results Component Value Date HGBA1C 9.7 % 05/13/2019 meaning a 3 month average sugar of : 237 Your goal hba1c is under 7.0 to prevent intermediate school teacher diabetes complications ( eye , kidney and nerve damage ) . Your goal sugars are in the 90-130 range Exercise recommendations: It is recommended that you do daily aerobic ( walking, riding a bike, swimming ) and resistance exercises ( light weight lifting, resistance band stretching ) for at least 30 minutes , most days of the week. If you can not walk, chair exercises for 10-15 min a day would help tremendously. As little as 15-20 minutes exercise , in one or two sessions a day, is still very helpful to improve your diabetes control . Diet recommendations: Eat small portion meals, trying not to consume more than 1800 calories a day . Try to eat not more than than 2 servings of carbs ( starches ) wiith your meals. Avoid soft drinks, including regular sodas , fruit juices and sweetened tea. Drink water instead. Eat plenty of green and leafy vegetables, including salads. Medications: Take your medications regularly. Setting phone alarms can help . Keep your medication on the kitchen dinner table, by the bedside table or by the sink where they are visible to you. If you are taking insulin : the insulin that you are currently using does not need to be refrigerated. Keep it where you can see it . Monitor your sugar levels with finger sticks regularly and keep a log sheet or book. Bring your sugar meter and /or a log book or log sheet to every office visit. Take Lantus 40 units in the morning, and 55 units at bedtime Take Humalog, 6 units before meals ( do not take any if not eating ) For sugars over 150, take 8 units For sugars over 200, take 10 units For sugars over 250, take 15 units For sugars over 300, take 20 units Start Jardiance, 10 mg daily Will request a DEXCOM , continuous glucose monitoring Social History Tobacco Use Types Packs/Day Years Used Date Smoking Tobacco: Every Day Cigarettes 0.5 50 Smokeless Tobacco: Never Tobacco Cessation:Ready to Q uit: Not Asked; Counseling Given: Not Answered Alcohol Use Standard Drinks/Week Comments No 0 (1 standard drink = 0.6 oz pur e alcohol) AUDIT-C Answer Date Recorded Q1: How often do you have a drink containing alc ohol? Never 03/17/2024 Average Number of Drinks Not on file 024 Frequency of Binge Drinking Not on file 02/21 PHQ-2 Answer Date Recorded PHQ-2 Total Score (If total score is 3 or more points, staff should administer the PHQ-9) 0 11/06/2021 Personal Safety Answer Date Recorded Have you ever been in or are you currently in a harmful physical or emotional relationship or is someone making you feel afraid or unsafe? Denies 03/17/2024 Sex and Gender Information Value Date Recorded Sex Assigned at Not on file Legal Sex Male 12:13 PM [employer] Gender Identity Not on file Sexual Orientation Not on file Last Filed Vital Signs Vital Sign Reading Time Taken Comments Blood Pressure 138/70 06/04/2024 11:33 AM CDT Pulse 71 06/04/2024 11:33 AM CDT Temperature 36.9 C (98.4 F) 03/17/2024 7:02 AM CDT Respiratory Rate 19 03/17/2024 7:02 AM CDT Oxygen Saturation 97% 06/04/2024 11:33 AM CDT Inhaled Oxygen Concentration - - Weight 97.1 kg (214 lb) 06/04/2024 11:33 AM CDT Height 188 cm (6' 2 ) 06/04/2024 11:33 AM CDT Body Mass Index 27.48 06/04/2024 11:33 AM CDT Plan of Treatment Not on file Medical Devices Implanted Type Area Spray I Painter Device Identifier Shelf Expiration Date Model / Serial / Lot goAct Device Closure Vascade Od5 Fr Femoral Artery [id number] - [id number] Implanted:Qty: 1 on 03/17/2024 by Sangeetha Coronado MD at [facility] [employer] 10/14/2025 [id number] / / [id number] Procedures Procedure Name Priority Date/Time Associated Diagnosis Comments COMPREHENSIVE METABOLIC PANEL Routine 03/12/2024 10:45 AM CDT Heart failure with reduced ejection fraction (HCC) POCT LIPID PANEL Routine 03/05/2024 11:4 3 AM CDT Dyslipidemia due to type 2 diabetes mellitus (HCC) HEMOGLOBIN A1C Routine 02/11/2024 3:51 PM CDT ALBUMIN CREATININE RATIO, URINE Routine 12/26/2022 3:59 PM CDT Type 2 diabetes mellitus with hyperglycemia, with long-term current use of insulin (HCC) from Last 3 Months or Most Recently Relevant to Health Maintenance Results * (ABNORMAL) Comprehensive metabolic panel (03/12/2024 10:45 AM CDT) Glucose 158(H) 70 - 99 mg/dL [facility] - 01 BUN 39(H) 8 - 27 mg/dL [facility] - 01 Creatinine, Serum 1.92(H) 0.76 - 1.27 mg/dL [facility] - 01 eGFR 39(L) >59 mL/min/1.7 3 [facility] - 01 BUN/creat ratio 20 10 - 24 [facility] - 01 Sodium 137 134 - 144 mmol/L [facility] - 01 Potassium, sr 4.3 3.5 - 5.2 mmol/L [facility] - 01 Chloride 101 96 - 106 mmol/L [facility] - 01 CO2 22 20 - 29 mmol/L [facility] - 01 Calcium 8.4(L) 8.6 - 10.2 mg/dL [facility] - 01 Protein, sr 5.3(L) 6.0 - 8.5 g/dL [facility] - 01 Albumin 3.3(L) 3.9 - 4.9 g/dL [facility] - 01 Globulin, Total 2.0 1.5 - 4.5 g/dL [facility] - 01 Bilirubin, Total <0.2 0.0 - 1.2 mg/dL [facility] - 01 Alk phos 112 44 - 121 IU/L [facility] - 01 AST 56(H) 0 - 40 IU/L [facility] - 01 ALT 74(H) 0 - 44 IU/L [facility] - 01 Blood 03/12/2024 10:4 5 AM CDT 03/12/2024 Narrative [facility] - 03/13/2024 8:15 AM CDT Performed at: [address] [id number] Academic Administrator: Dustin Augustine PhD, Phone: [phone] Declan Oliva MD LAB BLOOD ORDERABLES Fi nal Result [facility] - 01 * POCT lipid panel (03/05/2024 11:43 AM CDT) [facility] Cholesterol, POC 127 mg/dL Comment:GLU = 157 HDL, POC 38 mg/dL Triglycerides, POC 75 mg/dL LDL Cholesterol POC 74 mg/dL Chol/HDL Ratio, POC 1.9 Non-HDL Cholesterol, POC 89 mg/dL Cholesterol Total, POC 127 mg/dL Capillary blood 03/05/2024 1 1:43 AM CDT Declan Oliva MD POINT OF CARE TEST ORDE RABLES Final Result * (ABNORMAL) Hemoglobin A1c (02/11/2024 3:51 PM CDT) Hgb A1C 9.2(H) 4.0 - 5.6 % Estimated Average Glucose 217 mg/dL [facility] Comment: The ADA recommends reporting an estimated Average Glucose (eAG) with all Hemoglobin A1c results using the equation derived from a study of 507 normal and diabetic adults. Minority populations were underrepresented and children were not included. (Diabetes Care 31:6036-4220, 2008). The eAG is not equivalent to a fasting glucose. Blood 02/11/2024 3:51 PM CDT 02/11/2024 3:54 PM CDT Brenda Hernandez MD LAB BLOOD ORDERABLES Final Re sult [facility] [address] [employer] [place] [address] * (ABNORMAL) Albumin Creatinine Ratio, Urine (12/26/2022 3:59 PM CDT) Pathologist [facility] Albumin Ur 1,168.0 mg/L [facility] Comment: Interpretive Data No reference range established. Current interpretive data was last revised 2019. Creatinine Ur 54.9 mg/dL [facility] Comment: Interpretive Data No reference range established. Current interpretive data was last revised 2019. Albumin Creatinine Ratio, Ur 2,128(H) 1 - 29 mg/g [facility] Urine 12/26/2022 3:59 PM CDT 12/26/2022 7:11 PM CDT Leyla Celestin MD LAB URINE ORDERABLES Final Resul t [facility] [address] [place] [address] from Last 3 Months or Most Recently Relevant to Health Maintenance Insurance [employer] [facility] Address: [address] [address] [place] [address] [employer] Advance Directives For more information, please contact: [phone] * Full Code (Latest Code Status on File) Date Activated Date Inactivated Comments 03/17/2024 10:40 AM 03/17/2024 4:56 PM * Full Code Date Activated Date Inactivated Comments 02/11/2024 1:47 AM 02/12/2024 5:02 PM * Full Code Date Activated Date Inactivated Comments 04/19/2020 12:49 PM 04/19/2020 6:47 PM Care Teams Outsole Cementer Relationship Specialty Start Date End Date Amilcar Womack MD [address] [place] [address] PCP - General Family Medicine 02/05/24 [place] [address] [address] [address] Consulting Physician Internal Medicine 04/19/20 [place] [address] [address] [address] Surgeon General Surgery 04/19/20
--- OUTSIDE RECORDS SUMMARY | 2024-11-26 20:03 | XMS_ITS | Clinical Summary ---
Author Organization [facility] Care Team Providers Care Communications Marketing Intern Name Role Phone Unavailable Primary Care Provider Unavailabl e Social History Tobacco Use Types Packs/Day Years Used Date Smoking Tobacco: Never Assessed Sex and Gender Information Value Date Recorded Sex Assigned at Not on file Legal Sex Male 11:00 PM CDT Gender Identity Not on file Sexual Orientation Not on file Plan of Treatment Health Maintenance Due Date Last Done Comments Hepatitis C Virus (HCV) Screening 1960 TdaP Immunization 1960 Colonoscopy 2005 Colorectal Cancer Screening 2005 Cologuard 2010 Immunochemical Fecal Occult Blood 2010 Zoster Immunization (1 of 2) 2010 PSA Discussion 2015 Pneumococcal Immunization (5 0+ years) (2 of 2 - PCV) 07/01/2022 07/01/2021, 10/14/2014 Influenza Immunization (#1) 05/23/202405/24, 08/05/2018, 10/14/2014 SARS-COV-2 Immunization ( season) 2024 07/13/2021, 12/30/2020 Respiratory Syncytial Virus (RSV) Immunization (Adult) (1 - 1-dose 75+ series) 2035 Pneumococcal Immunization Combined Discontinued 07/01/2021, 10/14/2014 Hepatitis B Immunization Aged Out No longer eligible based on patient's age to complete this topic Meningococcal Immunization (ACWY) Aged Out No longer eligible based on patient's age to complete this topic Rotavirus Immunization Aged Out No lo nger eligible based on patient's age to complete this topic
--- OUTSIDE RECORDS SUMMARY | 2024-11-26 20:03 | XMS_ITS | Encounter Summary ---
Author Organization [facility] Healthcare Address [address] [place] [address] Care Team Providers Care Sheeting Puller Name Role Phone Adair Rascon MD Unavailable [phone] Jane Rodriguez MD, Juan Duff Unavailable [phone] Yeison Feliz MD Primary Care Provider Amilcar Womack MD Primary Care Provider [phone] Encounter Details Date Type Department Care Team (Late st Contact Info) Description 09/03/2022 Telephone [facility] Transplant Heart [address] [facility] [id number] [place] [address] Lacie Lucas Social History Tobacco Use Types Packs/Day Years Used Date Smoking Tobacco: Every Day Smokeless Tobacco: Never Alcohol Use Standard Drinks/Week Comments No 0 (1 standard drink = 0.6 oz pur e alcohol) PHQ-2 Answer Date Recorded PHQ-2 Total Score (If total score is 3 or more points, staff should administer the PHQ-9) 0 11/06/2021 Sex and Gender Information Value Date Recorded Sex Assigned at Not on file Legal Sex Male 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 Gender Identity Not on file Sexual Orientation Not on file documented as of this encounter Plan of Treatment Not on file documented as of this encounter Visit Diagnoses Not on filedocumented in this encounter Care Teams Sheeting Puller Relationship Specialty Start Date End Date Yeison Feliz MD [address] [facility] [address] [place] [address] PCP - General Family Medicine 11/01/21 02/04/24 Amilcar Womack MD [address] [place] [address] PCP - General Family Medicine 02/05/24 [place] [address] [address] [address] Consulting Physician Internal Medicine 04/19/20 [place] [address] [address] [address] Surgeon General Surgery 04/19/20 documented as of this encounter
--- OUTSIDE RECORDS SUMMARY | 2024-11-26 20:03 | XMS_ITS | Clinical Summary ---
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 Assessment & Plan (11/06/2021 11:43 AM DIRECTOR OF REHABILITATION AND WELLNESS): Hba1c was Lab Results Component Value Date [...] pt. Assessment & Plan (11/06/2021 11:43 AM DIRECTOR OF REHABILITATION AND WELLNESS): Check lipids Continue Lipitor Assessment & Plan (05/17/2021 10:49 AM CDT): Check lipid panel today Assessment & Plan (01/25/2021 3:46 PM CDT): At goal on current medications. Continue statin therapy. Assessment & Plan (06/22/2020 12:49 PM CDT): At goal on current medications. Continue statin therapy. Assessment & Plan (11/18/2019 4:51 PM DIRECTOR OF REHABILITATION AND WELLNESS): Goal of treatment , LDL cholesterol less [...] plan. Assessment & Plan (11/18/2019 4:51 PM DIRECTOR OF REHABILITATION AND WELLNESS): Goal blood pressure is less than 140/85 [...] 05/13/2019 Assessment & Plan (11/18/2019 10:36 AM DIRECTOR OF REHABILITATION AND WELLNESS): Your Hba1c today was: Lab Results Component Value Date HGBA1C 11.1 11/18/2019 meaning a 3 month average sugar of : 284 Your goal hba1c is under 7.0 to prevent termite exterminator helper diabetes complications ( eye , kidney and [...] goal hba1c is under 7.0 to prevent termite exterminator helper diabetes complications ( eye , kidney and [...] goal hba1c is under 7.0 to prevent termite exterminator helper diabetes complications ( eye , kidney and [...] request a DEXCOM , continuous glucose monitoring Surgical History Surgery Date Site/Laterality Comments HERNIA REPAIR Hernia repair KNEE ARTHROSCOPY 09/22/1985 - 09/21/1986 Left Arthroscopy knee MENISCUS SURGERY 09/22/1998 - 09/21/1999 Right Meniscus surgery ABOVE KNEE LEG AMPUTATION Medical History Medical History Date Comments Hypertension Hypertension Diabetes mellitus (HCC) Diabetes Arthritis Arthritis Disorder of thyroid Thyroid dise ase Hx Other Medical 2012 picc line; Late rality: left PVD (peripheral vascular disease) 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 due to underlying condition, limited to breakdown of skin (HCC) Osteomyelitis (HCC) Necrotizing myositis Chronic kidney disease Hypothyroidism Chronic pain disorder Asthma Heart failure with reduced ejection fraction (HC C) Family History Medical History Relation Name Comments Heart disease Other 1 Family history of Congenital heart disease; Diabetes Other 2 Family history of Diabetes mellitus; Heart disease Other 3 Family history of Heart disease; Hypertension Other 4 Family history of Hypertension; Stroke Other 5 Family history of Stroke; Thyroid disease Other 6 Family histo ry of Thyroid disorder; Relation Name Status Comments Other 1 Other 2 Other 3 Other 4 Other 5 Other 6 Social History Tobacco Use Types Packs/Day Years [...] on file Legal Sex Male 12:13 PM DIRECTOR OF REHABILITATION AND WELLNESS Gender Identity Not on file Sexual Orientation Not on file Obstetrics History Last Filed Vital Signs Vital Sign Reading [...] 06/04/2024 11:33 AM CDT Plan of Treatment Health Maintenance Due Date Last Done Comments Colon Cancer Screening-Colonoscopy 1960 Hepatitis C Screening 1960 Prostate Cancer Screening-PSA 1960 Dilated Eye Exam 1960 DTaP/Tdap/Td Vaccine (1 - Tdap) 1971 Hepatitis B Screening 1978 Regular Well Visit/Exam 18-64 1978 Lung Cancer Screening 2010 Zoster Vaccine (1 of 2) 2010 Pneumococcal vaccine <65 (2 of 2 - PCV) 10/14/2015 10/14/2014 Depression Screening 11/06/2022 11/06/2021, 06/22/2020, 11/18/2019, Additional history exists Albumin Creatinine Ratio, Urine 12/27/2023 12/26/2022, 11/06/2021, 11/25/2019 Influenza Vaccine (#1) 2024 8, 06/16/2017, 05/23/2017, Additional history exists Hemoglobin A1C 08/13/2024 02/11/2024, 04/0 02/2023, 05/23/2022, Additional history exists Foot Exam 02/10/2025 02/11/2024, 04/0 02/2023, 11/06/2021, Additional history exists Lipid Panel 03/05/2025 03/05/2024, 0 02/2023, 11/06/2021, Additional history exists eGFR 03/12/2025 03/12/2024, 01/21, 02/10/2024, Additional history exists Medical Devices Implanted Type Area Alcohol Law Enforcement Agent Device Identifier Shelf Expiration Date Model / Serial / Lot [employer] [facility] Device Closure Vascade Od5 Fr Femoral Artery [id number] - [id number] Implanted:Qty: 1 on 03/17/2024 by Sangeetha Coronado MD at [facility] [employer] [facility] 10/14/2025 700-500DX-0 [id number] / / [id number] Procedures Procedure Name Priority Date/Time Associated [...] - 03/13/2024 8:15 AM CDT Performed at: - [address] [id number] Paste Mixer Liquid: Dustin Augustine PhD, Phone: [phone] [facility] Cinthia Oliva MD LAB BLOOD ORDERABLES Fi nal Result [facility] - 01 * POCT lipid panel (03/05/2024 11:43 AM CDT) [facility] Cholesterol, POC 127 mg/dL Comment:GLU = 157 HDL, POC 38 mg/dL Triglycerides, POC 75 mg/dL LDL Cholesterol POC 74 mg/dL Chol/HDL Ratio, POC 1.9 Non-HDL Cholesterol, POC 89 mg/dL Cholesterol Total, POC 127 mg/dL Capillary blood 03/05/2024 1 1:43 AM CDT Declan Oliva MD POINT OF CARE TEST SWETA RIVERO Final Result * (ABNORMAL) Hemoglobin A1c (02/11/2024 3:51 PM CDT) Hgb A1C 9.2(H) 4.0 - 5.6 % Estimated Average Glucose 217 mg/dL [facility] Comment: The ADA recommends reporting an estimated Average Glucose (eAG) with all Hemoglobin A1c results using the equation derived from a study of 507 normal and diabetic adults. Minority populations were underrepresented and children were not included. (Diabetes Care 31:8210-8549, 2008). The eAG is not equivalent to a fasting glucose. Blood 02/11/2024 3:51 PM CDT 02/11/2024 3:54 PM CDT Brenda Hernandez MD LAB BLOOD ORDERABLES Final Re sult Performing Organization Address City/[facility] Co de Phone Number [facility] [address] [place] [address] * (ABNORMAL) Albumin Creatinine Ratio, Urine (12/26/2022 3:59 PM CDT) Albumin Ur 1,168.0 mg/L [facility] Comment: Interpretive Data No reference range established. Current interpretive data was last revised 2019. Creatinine Ur 54.9 mg/dL [facility] Comment: Interpretive Data No reference range established. Current interpretive data was last revised 2019. Albumin Creatinine Ratio, Ur 2,128(H) 1 - 29 mg/g [facility] Urine 12/26/2022 3:59 PM CDT 12/26/2022 7:11 PM CDT Leyla Celestin MD LAB URINE ORDERABLES Final Resul t Performing Organization Address City/[facility]/ZIP Co de Phone Number [facility] [address] [place] [address] from Last 3 Months or Most Recently Relevant to Health Maintenance Insurance IDPA MEDICARE SOLUTIONS IDPA MEDICARE [employer] MEDICARE SOLUTIONS IDPA Advance Directives For more information, please contact: [phone] * Full Code (Latest Code Status on File) Date Activated Date Inactivated Comments 03/17/2024 10:40 AM 03/17/2024 4:56 PM * Full Code Date Activated Date Inactivated Comments 02/11/2024 1:47 AM 02/12/2024 5:02 PM * Full Code Date Activated Date Inactivated Comments 04/19/2020 12:49 PM 04/19/2020 6:47 PM Care Teams Access Control Officer Relationship Specialty Start Date End Date Amilcar Womack MD [address] [address] PCP - General Family Medicine 02/05/24 [place] [address] [address] [address] Consulting Physician Internal Medicine 04/19/20 [place] [address] [address] [address] Surgeon General Surgery 04/19/20
[2024-11-26 20:08] VITALS: BP 129/70; PULSE 85; RESP 22; TEMP 36.3; O2SAT 99
[2024-11-26 20:25] LABS: Basophils Absolute Auto 0.1 K/mm3 (0.0-0.1); Basophils Percent Auto 0.6 % (0.2-1.2); Eosinophils Absolute Auto 0.5 K/mm3 (0-0.3); Eosinophils Percent Auto 3.6 % (0-4.4); Hematocrit 34.1 % (42.0-52.0); Hemoglobin 10.8 g/dL (14.0-18.0); Immature Granulocyte Absolute 0.05 K/mm3 (0.00-0.031); Immature Granulocyte Percent A 0.4 % (0-0.5); Lymphocytes Absolute Auto 1.39 K/mm3 (0.9-3.2); Lymphocytes Percent Auto 10.7 % (18.3-44.2); Mean Corpuscular HGB Conc 31.7 g/dl (32-36); Mean Corpuscular Hemoglobin 25.9 pg (26-34); Mean Corpuscular Volume 81.8 fl (80-100); Mean Platelet Volume 8.4 fl (7.4-10.4); Monocytes Absolute Auto 0.9 K/mm3 (0.1-0.6); Monocytes Percent Auto 6.8 % (2.6-8.5); Neutrophils Absolute Auto 10.2 K/mm3 (1.3-6.7); Neutrophils Percent Auto 77.9 % (45.5-73.1); Platelet Count Result 402 k/mm3 (150-375); Red Blood Count 4.17 M/mm3 (4.6-6.20); Red Cell Distribution Width 15.5 % (11.5-14.5)
[2024-11-26 20:36] LABS: INR 1.1; Prothrombin Time 14.8 Seconds (11.1-14.7)
[2024-11-26 20:37] LABS: Alanine Aminotransferase 20 U/L (6-50); Alkaline Phosphatase 125 U/L (38-126); Anion Gap 9 mmol/L (4-12); Aspartate Amino Transferase 27 U/L (17-59); Bilirubin,Total 0.4 mg/dL (0.2-1.3); Blood Urea Nitrogen 41 mg/dL (9-20); Calcium 8.1 mg/dL (8.4-10.2); Carbon Dioxide 25 mmol/L (22-30); Chloride 99 mmol/L (98-107); Estimated CRCL calculation 28 ml/min; Estimated Glomerular Filt Rate 22; Glucose 81 mg/dL (65-110); Lipase 17 U/L (23-300); Potassium 4.7 mmol/L (3.4-5.0); Sodium 133 mmol/L (137-145)
[2024-11-26 20:37] LABS: Partial Thromboplastin Time 39.8 Seconds (22.3-36.8)
[2024-11-26 20:48] LABS: Troponin I 0.025 ng/mL (0.000-0.034)
--- NOTE | 2024-11-26 22:53 | PC.NURSE ---
Pt to triage desks and reports he would be leaving d/t wait times and his ride leaving. Pt educated on importance of returning to ED if sx persist. Pt to follow up w pcp. pt removed from tracker.
--- OUTSIDE RECORDS SUMMARY | 2024-11-26 23:16 | XMS_ITS | Clinical Summary ---
Author Organization [facility] Care Team Providers Care Nuclear Plant Construction Worker Name Role Phone Unavailable Primary Care Provider [...]
--- OUTSIDE RECORDS SUMMARY | 2024-11-26 23:16 | XMS_ITS | Referral Summary ---
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 Assessment & Plan (11/06/2021 11:43 AM COGENERATION OPERATOR): Hba1c was Lab Results Component Value Date [...] pt. Assessment & Plan (11/06/2021 11:43 AM COGENERATION OPERATOR): Check lipids Continue Lipitor Assessment & Plan (05/17/2021 10:49 AM CDT): Check lipid panel today Assessment & Plan (01/25/2021 3:46 PM CDT): At goal on current medications. Continue statin therapy. Assessment & Plan (06/22/2020 12:49 PM CDT): At goal on current medications. Continue statin therapy. Assessment & Plan (11/18/2019 4:51 PM COGENERATION OPERATOR): Goal of treatment , LDL cholesterol less [...] plan. Assessment & Plan (11/18/2019 4:51 PM COGENERATION OPERATOR): Goal blood pressure is less than 140/85 [...] 05/13/2019 Assessment & Plan (11/18/2019 10:36 AM COGENERATION OPERATOR): Your Hba1c today was: Lab Results Component Value Date HGBA1C 11.1 11/18/2019 meaning a 3 month average sugar of : 284 Your goal hba1c is under 7.0 to prevent terminal supervisor diabetes complications ( eye , kidney and [...] goal hba1c is under 7.0 to prevent terminal supervisor diabetes complications ( eye , kidney and [...] goal hba1c is under 7.0 to prevent terminal supervisor diabetes complications ( eye , kidney and [...] on file Legal Sex Male 12:13 PM COGENERATION OPERATOR Gender Identity Not on file Sexual Orientation [...] on file Medical Devices Implanted Type Area Dope Maintenance Worker Device Identifier Shelf Expiration Date Model / Serial / Lot [employer] Device Closure Vascade Od5 Fr Femoral Artery [id number] - [id number] Implanted:Qty: 1 on 03/17/2024 by Sangeetha Coronado MD at [facility] [employer] 10/14/2025 700-500DX-0 5U / / [id number] Procedures Procedure Name Priority Date/Time Associated [...] - 03/13/2024 8:15 AM CDT Performed at: [address] [id number] Wastewater Treatment Supervisor: Dustin Augustine PhD, Phone: [phone] Declan Oliva MD LAB BLOOD ORDERABLES Fi nal Result [facility] - 01 * POCT lipid panel (03/05/2024 11:43 AM CDT) [facility] Cholesterol, POC 127 mg/dL Comment:GLU = 157 [...] and children were not included. (Diabetes Care 31:5812-6420, 2008). The eAG is not equivalent to a fasting glucose. Blood 02/11/2024 3:51 PM CDT 02/11/2024 3:54 PM CDT Brenda Hernandez MD LAB BLOOD ORDERABLES Final Re sult [facility] [address] [place] [address] * (ABNORMAL) Albumin Creatinine Ratio, Urine (12/26/2022 3:59 PM CDT) Pathologist [facility] Albumin Ur 1,168.0 mg/L [facility] Comment: Interpretive Data No reference range established. Current interpretive data was last revised 2019. Creatinine Ur 54.9 mg/dL [facility] Comment: Interpretive Data No reference range established. Current interpretive data was last revised 2019. Albumin Creatinine Ratio, Ur 2,128(H) 1 - 29 mg/g [facility] Urine 12/26/2022 3:59 PM CDT 12/26/2022 7:11 PM CDT Leyla Celestin MD LAB URINE ORDERABLES Final Resul t [facility] [address] [place] [address] from Last 3 Months or Most Recently Relevant to Health Maintenance Insurance IDPA MEDICARE SOLUTIONS IDPA MEDICARE SOLUTIONS [place] [address] Advance Directives For more information, please contact: [phone] * Full Code (Latest Code Status on File) Date Activated Date Inactivated Comments 03/17/2024 10:40 AM 03/17/2024 4:56 PM * Full Code Date Activated Date Inactivated Comments 02/11/2024 1:47 AM 02/12/2024 5:02 PM * Full Code Date Activated Date Inactivated Comments 04/19/2020 12:49 PM 04/19/2020 6:47 PM Care Teams Property Administrator Relationship Specialty Start Date End Date Amilcar Womack MD [address] [place] [address] PCP - General Family Medicine 02/05/24 [place] [address] [address] [address] Consulting Physician Internal Medicine 04/19/20 [place] [address] [address] [address] Surgeon General Surgery 04/19/20
--- OUTSIDE RECORDS SUMMARY | 2024-11-26 23:16 | XMS_ITS | Encounter Summary ---
Author Organization [facility] Address [address] [place] [address] Care Team Providers Care Vba Developer Name Role Phone Adair Rascon MD Unavailable [phone] Jane Rodriguez MD, Juan Duff Unavailable [phone] Yeison Feilz MD Primary Care Provider Amilcar Womack MD Primary Care Provider [phone] Encounter Details Date Type Department Care Team (Late st Contact Info) Description 09/03/2022 Telephone [facility] Transplant Heart [address] [facility] [id number] [place] [address] Lacie Lucas Social History Tobacco Use Types [...] on file Legal Sex Male 12:13 PM 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 Gender Identity Not on file Sexual Orientation Not on file documented as of this encounter Plan of Treatment Not on file documented as of this encounter Visit Diagnoses Not on filedocumented in this encounter Care Teams Vba Developer Relationship Specialty Start Date End Date Yeison Feliz MD [address] [facility] [address] [place] [address] PCP - General Family Medicine 11/01/21 02/04/24 Amilcar Womack MD [address] [place] [address] PCP - General Family Medicine 02/05/24 [place] [address] [address] [address] Consulting Physician Internal Medicine 04/19/20 [place] [address] [address] [address] Surgeon General Surgery 04/19/20 documented as of this encounter
--- OUTSIDE RECORDS SUMMARY | 2024-11-26 23:16 | XMS_ITS | Clinical Summary ---
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 Assessment & Plan (11/06/2021 11:43 AM COMPENSATION BUSINESS PARTNER): Hba1c was Lab Results Component Value Date [...] pt. Assessment & Plan (11/06/2021 11:43 AM COMPENSATION BUSINESS PARTNER): Check lipids Continue Lipitor Assessment & Plan (05/17/2021 10:49 AM CDT): Check lipid panel today Assessment & Plan (01/25/2021 3:46 PM CDT): At goal on current medications. Continue statin therapy. Assessment & Plan (06/22/2020 12:49 PM CDT): At goal on current medications. Continue statin therapy. Assessment & Plan (11/18/2019 4:51 PM COMPENSATION BUSINESS PARTNER): Goal of treatment , LDL cholesterol less [...] plan. Assessment & Plan (11/18/2019 4:51 PM COMPENSATION BUSINESS PARTNER): Goal blood pressure is less than 140/85 [...] 05/13/2019 Assessment & Plan (11/18/2019 10:36 AM COMPENSATION BUSINESS PARTNER): Your Hba1c today was: Lab Results Component Value Date HGBA1C 11.1 11/18/2019 meaning a 3 month average sugar of : 284 Your goal hba1c is under 7.0 to prevent watermelon inspector diabetes complications ( eye , kidney and [...] goal hba1c is under 7.0 to prevent watermelon inspector diabetes complications ( eye , kidney and [...] goal hba1c is under 7.0 to prevent watermelon inspector diabetes complications ( eye , kidney and [...] on file Legal Sex Male 12:13 PM COMPENSATION BUSINESS PARTNER Gender Identity Not on file Sexual Orientation [...] history exists Medical Devices Implanted Type Area Group Sales Manager Device Identifier Shelf Expiration Date Model / Serial / Lot DDVTECH [facility] Device Closure Vascade Od5 Fr Femoral Artery [id number] - [id number] Implanted:Qty: 1 on 03/17/2024 by Sangeetha Coronado MD at [facility] [email or web address] [facility] 10/14/2025 700-500DX-0 5U / / [id number] Procedures Procedure Name Priority Date/Time Associated [...] 03/13/2024 8:15 AM CDT Performed at: - [address] [id number] Projector Operator: Dustin Augustine PhD, Phone: [phone] [facility] Cinthia Oliva MD LAB BLOOD ORDERABLES Fi nal Result [facility] - 01 * POCT lipid panel (03/05/2024 11:43 AM CDT) [facility] Cholesterol, POC 127 mg/dL Comment:GLU = [...] and children were not included. (Diabetes Care 31:0476-9000, 2008). The eAG is not equivalent to a fasting glucose. Blood 02/11/2024 3:51 PM CDT 02/11/2024 3:54 PM CDT Brenda Hernandez MD LAB BLOOD ORDERABLES Final Re sult Performing Organization Address City/[facility] Co de Phone Number [facility] [address] [place] [address] * (ABNORMAL) Albumin Creatinine Ratio, Urine (12/26/2022 3:59 PM CDT) Albumin Ur 1,168.0 mg/L [facility] Comment: Interpretive Data No reference range established. Current interpretive data was last revised 2019. Creatinine Ur 54.9 mg/dL [facility] Comment: Interpretive Data No reference range established. Current interpretive data was last revised 2019. Albumin Creatinine Ratio, Ur 2,128(H) 1 - 29 mg/g [facility] Urine 12/26/2022 3:59 PM CDT 12/26/2022 7:11 PM CDT Leyla Celestin MD LAB URINE ORDERABLES Final Resul t Performing Organization Address City/[facility]/ZIP Co de Phone Number [facility] [address] [place] [address] from Last 3 Months or Most Recently Relevant to Health Maintenance Insurance IDPA MEDICARE SOLUTIONS IDPA MEDICARE [employer] MEDICARE SOLUTIONS IDPA Advance Directives For more information, please contact: [phone] * Full Code (Latest Code Status on File) Date Activated Date Inactivated Comments 03/17/2024 10:40 AM 03/17/2024 4:56 PM * Full Code Date Activated Date Inactivated Comments 02/11/2024 1:47 AM 02/12/2024 5:02 PM * Full Code Date Activated Date Inactivated Comments 04/19/2020 12:49 PM 04/19/2020 6:47 PM Care Teams Computer Animator Relationship Specialty Start Date End Date Amilcar Womack MD [address] [address] PCP - General Family Medicine 02/05/24 [place] [address] [address] [address] Consulting Physician Internal Medicine 04/19/20 [place] [address] [address] [address] Surgeon General Surgery 04/19/20
== END 2024-11-26 22:53 | disposition left against medical advice (07) ==
PROVIDERS: Emergency Provider Emergency Medicine; PCP Registered Nurse
DX: R06.02 Shortness of breath (principal)
CPT/HCPCS: 36415; 71046; 80053; 83690; 84484; 85025; 85610; 85730; 93005; 99199

== ENCOUNTER 2024-12-17 12:46 | Inpatient (IN) | payer MEDICARE, MEDICAID, SELFPAY ==
[2024-12-17] VITALS (9 sets, daily range): BP systolic 107–138; BP diastolic 74–99; PULSE 119–123; RESP 18–26; TEMP 36.4–36.6; O2SAT 97–100; BMI 30.4
--- NOTE | ~2024-12-17 | XR_ITS ---
Portable chest x-ray Comparison: 12/25/2024 Clinical History: Altered mental status, CHF Findings: Right IJ line in place. Small bilateral pleural effusions are present with bibasilar pulmo nary edema/atelectasis. Cardiomediastinal silhouette is stable. Calcified density left hilar region is unchanged, likely calcified lymph node. Bones and soft tissues are unremarkable. Impression: Small pleural effusions with bibasilar pulmonary edema/atelectasis. Support line, as above. Reviewed, dictated and finalized at location M. Impression: Small pleural effusions with bibasilar pulmonary edema/atelectasis. Support line, as above.
--- NOTE | ~2024-12-17 | XR_ITS ---
3 VIEWS LUMBAR SPINE Ordering provider: Ar Gonzales MD History: . fall . Comparison: None. FINDINGS: VERTEBRAL BODIES:Anterior loss of height of L1 most likely chronic. MRI evaluation advised. No visib le fracture or subluxation. Degenerative changes of the spine. DISK SPACES: Slight narrowing of the disc L4-L5 with vacuum phenomena.. Facet Joint disease at the le dank of L4-L5 and L5-S1. SOFT TISSUES: Atherosclerotic changes of the aorta. IMPRESSION: Anterior loss of volume of L1 which is most likely chronic. MRI evaluation advised. Otherwise, No acu te osseous abnormality lumbar spine. Degenerative disc disease at the level of L4-L5. Reviewed, dictated and finalized at location A. IMPRESSION: Anterior loss of volume of L1 which is most likely chronic. MRI evaluation advi sed. Otherwise, No acute osseous abnormality lumbar spine. Degenerative disc disease at the level of L4-L5.
--- NOTE | ~2024-12-17 | XR_ITS ---
Portable chest x-ray Comparison: 12/31/2024 Clinical History: CHF Findings: Right IJ line in place. Hazy bilateral airspace disease compatible mild pulmonary edema an d probable element of left lower lobe atelectasis. Possible minimal left pleural effusion. Cardiomed iastinal silhouette is stable. Bones and soft tissues are unremarkable. Impression: Mild pulmonary edema pattern with probable element of left lower lobe atelectasis. Small left pleural effusion. Right IJ line. Reviewed, dictated and finalized at location . Impression: Mild pulmonary edema pattern with probable element of left lower lobe atelectas is. Small left pleural effusion. Right IJ line.
--- NOTE | ~2024-12-17 | US_ITS ---
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 Risks discussed included bleeding and infection. She provide d written consent to proceed. A timeout was performed to verify the patient's name, date of , and procedure to be performed. The skin overlying the left kidney was prepped and draped in usual s terile fashion. Anesthetic was administered with 1% lidocaine subcutaneously. An 18 gauge core biop sy needle was then used to obtain 5 core biopsy specimens under continuous sonographic guidance. The entry site was cleaned and dressed. There were no immediate complications. FINDINGS: Ultrasound images demonstrate the needle in the lower pole of the left kidney. IMPRESSION: 1. Ultrasound-guided random left kidney core needle biopsy. Reviewed, dictated and finalized at location A.
--- NOTE | ~2024-12-17 | XR_ITS ---
XR chest port-a-cath/central Ordering provider: Ephraim Corona MD History: 64 years Male with . TUNNELED CV CATH . Comparison: January 03, 2025 FINDINGS: MEDIASTINUM: The cardiac silhouette is moderately enlarged. Left permacath with the tip overlying the right atrium. Congestive sarah beth. LUNGS: No pneumothorax. Bilateral alveolar and interstitial opacification suggestive of pulmonary glen ma. Superimposed pneumonia cannot be excluded. Highly suggestive left pleural effusion. The right cos tophrenic angle is clipped from the image. OTHER: No free air under the diaphragm. IMPRESSION: Cardiomegaly with cardiac decompensation and pulmonary edema. Superimposed pneumonia is not excluded. Left pleural effusion. Reviewed, dictated and finalized at location A. IMPRESSION: Cardiomegaly with cardiac decompensation and pulmonary edema. Superimposed pneu monia is not excluded. Left pleural effusion.
--- NOTE | ~2024-12-17 | XR_ITS ---
Portable chest x-ray Comparison: 12/17/2024 Clinical History: CHF Findings: Small bilateral pleural effusions are present. There is minimal bibasilar pulmonary edema/ atelectasis. Cardiomediastinal silhouette is stable. Bones and soft tissues are unremarkable. Impression: Small bilateral pleural effusions with mild bibasilar pulmonary edema/atelectasis. Reviewed, dictated and finalized at location . Impression: Small bilateral pleural effusions with mild bibasilar pulmonary edema/atelectas is.
--- NOTE | ~2024-12-17 | CT_ITS ---
EXAMINATION: CT brain wo con DATE: 12/25/2024 16:51 INDICATION: confusion. NEEDS TO BE TODAY . TECHNIQUE: Computed tomography (CT) of the head was performed without intravenous contrast. The mA wa s adjusted according to patient size. Iterative reconstruction technique was employed. The dose-lengt h product was 756.97 mGy-cm. COMPARISON: None. FINDINGS: No acute intracranial hemorrhage or extra-axial fluid collection. No hydrocephalus, mass, or herniation. No acute ischemic infarct. Unremarkable dural venous sinus attenuation. No acute osseous abnormality. Partial right mastoid opacification, the remaining aerated spaces are clear. Mild atrophy and chronic white matter change. Atherosclerotic intracranial calcification. Small focus of encephalomalacia in the right posterior frontal white matter. IMPRESSION: No acute intracranial process. Reviewed, dictated and finalized at location K.
--- NOTE | ~2024-12-17 | MR_ITS ---
EXAMINATION: MR lumbar spine wo/w con DATE: 12/18/2024 14:07 INDICATION: Fall. Anterior loss of height of L1 vertebral body as described on plain film evaluation of the lumbar spin e dated 12/17/2024 for which MRI evaluation was advised to determine the acuity. TECHNIQUE: Magnetic resonance imaging (MRI) of the lumbar spine was performed without and with intrav enous contrast. Sequences included sagittal T2-weighted FSE, sagittal T2-weighted FS FSE, sagittal T1 -weighted FSE, and axial T2-weighted FSE. COMPARISON: Plain film evaluation of the lumbar spine, as detailed above. FINDINGS: Examination is markedly limited secondary to patient motion artifact. No abnormal contrast enhancement or signal intensity is identified anteriorly or superiorly within th e vertebral body of L1, suggesting long-standing abnormality rather than acute fracture. The following disc levels are specifically discussed: T11-T12: Not included in the axial T2 images T12-L1: Poor visualization secondary to motion artifact. L1-L2: Poor visualization secondary to motion artifact. L2-L3: Poor visualization secondary to motion artifact L3-L4: A right paracentral disc protrusion is identified with significant mass effect on the bilatera l neural foramen (right greater than left). L4-L5: A broad-based disc protrusion is identified with mass effect on both the spinal canal and bila teral neural foramen (right greater than left). L5-S1: Poor visualization secondary to motion artifact. IMPRESSION: Limited examination secondary to motion artifact. No abnormal signal intensity or contrast enhancement is identified within the vertebral body of L1 to suggest acute traumatic injury. Within the visualized intervertebral disc spaces, moderate degenerative disease is noted, as detailed above. Reviewed, dictated and finalized at location A. IMPRESSION: Limited examination secondary to motion artifact. No abnormal signal intensity or contrast enhancement is identified within the v ertebral body of L1 to suggest acute traumatic injury. Within the visualized intervertebral disc spaces, moderate degenerative disease is noted, as detailed above.
--- NOTE | ~2024-12-17 | US_ITS ---
EXAMINATION: US venous doppler LE RT DATE: 12/18/2024 13:11 INDICATION: Right lower limb edema. TECHNIQUE: Grayscale ultrasound images without and with compression and Doppler ultrasound images of the right lower extremity veins were obtained. COMPARISON: Ultrasound 04/01/2024 FINDINGS: The visualized portions of right common femoral vein, profunda (deep) femoral vein, femoral vein, pop liteal vein, peroneal veins, posterior tibial veins, and greater saphenous vein outflow are patent. IMPRESSION: 1. No deep venous thrombosis. Reviewed, dictated and finalized at location A.
--- NOTE | ~2024-12-17 | XR_ITS ---
EXAMINATION: XR fl Dobhoff insert/rad w img DATE: 12/27/2024 16:36 INDICATION: Need for tube feeding. TECHNIQUE: Utilizing intermittent fluoroscopy a Dobbhoff type feeding tube was advanced into the stomach. 15 mL of water-soluble contrast was injected through the catheter assessment of the anatomy for attempt at further advancement of the catheter into the duodenum which was unsuccessful despite multiple attempt s. Final image demonstrates the feeding tube with the weighted distal tip at the gastric pylorus and with some additional redundancy to the catheter within the stomach to allow for further passive advan cement with peristalsis. The tube was flushed fixed to the nares with adhesive tape. The stiffening w chago was removed and the catheter flushed with small amount of water. A single fluoroscopic image was recorded. The amount of fluoroscopy time used during this procedure was 2.1 minutes. Total DAP was 16 .491 mGycm^2. There were no immediate complications. FINDINGS/IMPRESSION: Successful fluoroscopy-guided Dobbhoff feeding tube placement with distal tip at the gastric pylorus with some redundancy to the catheter within the stomach to allow for additional passive advancement i nto the duodenum with peristalsis. Reviewed, dictated and finalized at location A.
--- NOTE | ~2024-12-17 | XR_ITS ---
EXAMINATION: XR chest 1V portable DATE: 12/25/2024 13:30 INDICATION: Cough TECHNIQUE: frontal view of the chest was obtained. COMPARISON: Chest radiograph dated 12/22/2024 FINDINGS: Right internal jugular central venous catheter with distal tip at the caudal superior vena cava. Grad e basilar predominant hazy airspace opacities in the right mid to lower and left lower lung zones con sistent with posterior layering small to moderate-sized right and small left pleural effusions with a ssociate bibasilar atelectasis and/or pneumonia. No pneumothorax. Cardia megaly. Calcified left hilar lymph node consistent with old granulomatous disease. IMPRESSION: 1. Small left and small to moderate-sized right pleural effusion with associated bibasilar atelectasi s and/or pneumonia. 2. Cardiomegaly. Reviewed, dictated and finalized at location A. IMPRESSION: 1. Small left and small to moderate-sized right pleural effusion with associate d bibasilar atelectasis and/or pneumonia. 2. Cardiomegaly.
--- NOTE | ~2024-12-17 | XR_ITS ---
XR chest 2V 12/17/2024 13:58 Indication: Weakness Procedure: 2 view chest Comparison: Comparison to multiple prior studies sequentially, with oldest reviewed study dated 04/03. Findings: Cardiomegaly. Small pleural effusions. Bibasilar infiltrates, atelectasis versus pneumonia. Impression: 1: Bibasilar infiltrates, atelectasis versus pneumonia. 2: Small pleural effusions. Reviewed, dictated and finalized at location A. Impression: 1: Bibasilar infiltrates, atelectasis versus pneumonia. 2: Small pleural effusions.
--- NOTE | ~2024-12-17 | US_ITS ---
EXAMINATION: US renal BI DATE: 12/18/2024 13:18 INDICATION: Acute on chronic kidney injury. TECHNIQUE: Multiple ultrasound grayscale images of the kidneys were obtained. COMPARISON: None. FINDINGS: The right kidney measures 12.4 x 5.4 x 6.9 cm. The left kidney measures 12.5 x 6.0 x 6.4 cm. The kidn eys demonstrate normal parenchymal echogenicity. There is a 1.9 cm cyst in right kidney. There is no hydronephrosis. The bladder is normal. IMPRESSION: 1. Normal kidney sizes. No hydronephrosis. Reviewed, dictated and finalized at location A.
--- NOTE | ~2024-12-17 | XR_ITS ---
CHEST RADIOGRAPH CLINICAL HISTORY: Temporary dialysis cath placed . COMPARISON: 12/20/2024 TECHNIQUE: Single portable view of the chest. FINDINGS Interval placement of a right internal jugular central venous nontunneled hemodialysis catheter with its tip projecting over the superior margin of the cavoatrial junction. Multiple calcified lymph nodes within the mediastinum prior granulomatous disease. The remainder of the cardiomediastinal silhouette is enlarged, unchanged, but otherwise unremarkable. Increased interstitial markings are identified bilaterally, findings suggesting mild pulmonary vascul ar congestion. Hazy opacification of the right hemidiaphragm, findings consistent with a small right-sided pleural e ffusion. Hazy opacification of the left hemidiaphragm, findings consistent with a small left-sided pleural eff usion. The remainder of the lungs are clear IMPRESSION: Interval placement of a nontunneled right internal jugular hemodialysis catheter, in good position an d ready for immediate use. Mild pulmonary vascular congestion with small bilateral pleural effusions Reviewed, dictated and finalized at location A. IMPRESSION: Interval placement of a nontunneled right internal jugular hemodialysis cathete r, in good position and ready for immediate use. Mild pulmonary vascular congestion with small bilateral pleural effusions
--- NOTE | ~2024-12-17 | XR_ITS ---
XR fl guide central line place Indication: Central line placement TECHNIQUE: Fluoroscopy used during central line placement performed by [Ephraim Corona MD] on 01/06/2025. 145 seconds of fluoroscopy with one fluoroscopic images captured. FINDINGS: Correlate with procedure note. IMPRESSION: Fluoroscopy used during central line placement. Reviewed, dictated and finalized at location B.
--- NOTE | ~2024-12-17 | US_ITS ---
Scrotal ultrasound EXAMINATION: US scrotum doppler DATE: 01/05/2025 15:02 INDICATION: Testicular pain TECHNIQUE: Sonographic evaluation of the scrotum was performed assessing grayscale appearance and col or Doppler flow. Spectral Doppler evaluation was also performed. COMPARISON: None. FINDINGS: RIGHT TESTICLE: The right testicle measures 4.6 x 2.4 x 2.9 cm. Arterial and venous flow are present. RIGHT EPIDIDYMIS: Poorly visualized secondary to poor acoustic penetration. LEFT TESTICLE: The left testicle measures 4.3 x 3.0 x 3.2 cm. Arterial and venous flow are demonstrated. LEFT EPIDIDYMIS: Poorly visualized secondary to poor acoustic penetration Significant soft tissue swelling bilaterally, consistent with patient's presentation. IMPRESSION: Significant soft tissue swelling, without inherent testicular abnormality. Reviewed, dictated and finalized at location A.
--- NOTE | ~2024-12-17 | MR_ITS ---
EXAMINATION: MR MRCP wo con/w 3D wo ind pp DATE: 12/21/2024 08:21 INDICATION: Assess for biliary obstruction TECHNIQUE: Magnetic resonance imaging (MRI) of the abdomen was performed without intravenous contrast . Sequences included coronal T2-weighted SS-FSE, coronal T2-weighted FS SS-FSE, coronal T2-weighted F S FIESTA, axial T2-weighted SS-FSE, axial diffusion-weighted SE, coronal T1-weighted LAVA. At patient request study was terminated prematurely at the point in prior to obtaining the thick-slab T2-weight ed FRFSE-XL images for magnetic resonance cholangiopancreatography (MRCP). COMPARISON: Ultrasound dated 12/18/2024 FINDINGS: Cardiomegaly. No pericardial effusion. Small left and moderate-sized right posterior layering pleural effusions. There is diffuse body wall, mesenteric and retroperitoneal edema. There is also a small a mount of ascites scattered throughout the abdomen and visualized pelvis. There are bilateral T2 hyper intense renal cysts the largest on the left measuring up to 2.1 cm. Liver, spleen, pancreas and bilat eral adrenal glands appear normal on noncontrast imaging. No intrahepatic biliary ductal dilation. Th e common bile duct measures up to 5 mm maximal diameter which is normal. Gallbladder appears normal. No gallstones identified although sensitivity for tiny stones is decreased by some motion artifact on multiple sequences. No bowel obstruction. No pathologically enlarged abdominal lymphadenopathy. Bone marrow signal is normal throughout. IMPRESSION: 1. Study terminated at patient request prior to obtaining the normal complement of sequences includin g the MRCP images and which along with some motion artifact on the obtained sequences moderately limi ts evaluation. 2. Anasarca with small left and moderate-sized right pleural effusions, small amount of ascites and e xtensive body wall, as enteric and retroperitoneal edema. 3. Normal-appearing gallbladder with no evident cholelithiasis and with no intra or extrahepatic bili mike ductal dilation. Sensitivity for tiny gallstones which were suggested on prior ultrasound is limi gerald by motion artifact. 4. Cardiomegaly. Reviewed, dictated and finalized at location A. IMPRESSION: 1. Study terminated at patient request prior to obtaining the normal complement of sequences including the MRCP images and which along with some motion artifa ct on the obtained sequences moderately limits evaluation. 2. Anasarca with small left and moderate-sized right pleural effusions, small a mount of ascites and extensive body wall, as enteric and retroperitoneal edema. 3. Normal-appearing gallbladder with no evident cholelithiasis and with no intr a or extrahepatic biliary ductal dilation. Sensitivity for tiny gallstones whic h were suggested on prior ultrasound is limited by motion artifact. 4. Cardiomegaly.
--- NOTE | ~2024-12-17 | US_ITS ---
EXAMINATION: US biopsy liver DATE: 12/22/2024 10:15 INDICATION: Autoimmune hepatitis TECHNIQUE: The procedure including the risks and benefits was discussed with the patient. Risks discu ssed included bleeding and infection. The patient understood the risks and agreed to proceed. The sk in overlying the liver was prepped and draped in usual sterile fashion. Anesthetic was administered with 1% lidocaine subcutaneously. An 18 gauge core biopsy needle was advanced under continuous ultra sound observation to the lesion of interest. 3 core biopsy specimens were obtained. The needle was removed and the entry site was cleaned and dressed. Post procedure ultrasound demonstrated no hemorr serge. FINDINGS: Ultrasound images demonstrate biopsy needle advanced into the liver which appears unremarka ble. IMPRESSION: 1. Successful Ultrasound-guided random liver biopsy. Reviewed, dictated and finalized at location A.
--- NOTE | ~2024-12-17 | US_ITS ---
EXAMINATION: US abdomen limited DATE: 12/18/2024 13:15 INDICATION: Abnormal liver function tests. TECHNIQUE: Multiple grayscale and Doppler ultrasound images of the abdomen were obtained. COMPARISON: Chest CT 01/16/2023 FINDINGS: The pancreas is obscured by bowel gas. The liver is normal without focal lesion. The gallbl adder is normal in size and contains sludge and stones. No gallbladder wall thickening or sonographic [place] sign. The common duct is mildly dilated and measures 8 mm. IMPRESSION: 1. Cholelithiasis. No evidence of acute cholecystitis. 2. Mildly dilated common duct. Reviewed, dictated and finalized at location A.
--- NOTE | ~2024-12-17 | US_ITS ---
EXAMINATION: US arterial duplex LE RT DATE: 12/18/2024 15:36 INDICATION: Decreased right dorsalis pedis pulse when compared to the left on physical examination. TECHNIQUE: Grayscale ultrasound images without and with compression and Doppler ultrasound images of the bilateral lower extremity veins were obtained. COMPARISON: None. FINDINGS: Peak systolic velocity (cm/sec) ; waveform Right lower extremity External iliac artery: Not on the submitted images Common femoral artery: 121; triphasic Profunda femoral artery: 50; triphasic Superficial femoral artery (proximal): 72; triphasic Superficial femoral artery (mid): 97; triphasic Superficial femoral artery (distal): 63; triphasic Popliteal artery: 48; biphasic Anterior tibial artery: 30; biphasic Posterior tibial artery: 12; monophasic Peroneal artery: 17; monophasic Dorsalis pedis: 15; monophasic IMPRESSION: Abnormal peak systolic velocity and waveform morphology suggesting a popliteal or tibioperoneal trunk stenosis. Three-vessel blood flow into the right calf with single vessel blood flow into the right foot (on the submitted images) Reviewed, dictated and finalized at location A.
--- OUTSIDE RECORDS SUMMARY | 2024-12-17 12:59 | XMS_ITS | Data Portability ---
Author Organization [place] - [facility] - [facility] [place] Address [address] [place] [address] Assessment Encounter Date Assessment Date Assessment LastModified [...] used during this encounter to provide a yieb-gt-lkxq interactive encounter. Components of this encounter are a culmination of visual and patient-assisted findings. [email or web address] Not available 2023 15:13:18 09/05/2023 09/05/2023 Pt [...] By Organization Details Last Modified Time 2023 [id number] I have discussed the risks and benefits [...] being evaluated, and answering of all questions. [email or web address] Not available 2023 15:13:24 09/05/2023 [id number] I have discussed the risks and benefits [...] SOUZA PA-C [address], [address], [place], [address], [facility] - [facility] 2023 15:13:44 Imaging Results None recorded. [...] Not Available N ot Available Dexcom G7 Audiology Doctor USE TO TEST CONTINUOUSL Y active Not [...] Organization Details LastModified Time Mother Diabetes mellitus [email or web address] Not available 09/01 15:13:44 Brother Diabetes mellitus [email or web address] Not available 09/01 15:13:44 Sister Diabetes mellitus [email or web address] Not available 09/01 15:13:44 Father Diabetes mellitus [email or web address] Not available 09/01 15:13:44 Medical History Condition Response Arthritis Y Past Encounters Encounter ID Performer Location Encounter Start Date Encounter Closed Date Diagnosis/Indication Diagnosis SNOMED-CT Code Diagnosis ICD10 Code Diagnosis Note [id number] PRECIOUS SOUZA PA-C [facility] [address] [place] [address] 2023 15:12:05 2023 16:44:03 Chronic pain 97540279 G89.29 continue seeing your specialist s and primary care provider. patient agreed with plan and verbalized understand ing. [id number] [facility] [address] [place] [address] 09/05/2023 11:10:39 09/05/2023 11:29:42 Chronic pain 48628078 G89.29 Health Concerns Section Related Observation LastModified by Organization Detai ls LastModified Time None Recorded Concern Status LastModified by Organization Details LastModified Time None Recorded Advance Directives Directive None Recorded Payers Encounter Date Sequence Insurance Name Policy Number Policy Asher Covered Member ID Asher Member ID Guarantor Name 2023 1 [facility] (MEDICARE REPLACEMENT/A DVANTAGE - PPO) [id number] Jose Castroehaus [id number] Jose Mckinney 09/05/2023 1 [facility] (MEDICARE REPLACEMENT/A DVANTAGE - PPO) [id number] Jose Castroehaus [id number] Jose Mckinney Notes Date Note Type Note [...] extremity numbness/weakness. PRECIOUS SOUZA PA-C [address], [place], [address], [place] - [facility] 2023 [...] MIKE ESQUIVEL [address], [address], [place], [address], [place] - [facility] 09/05/2023 11:12:50
--- OUTSIDE RECORDS SUMMARY | 2024-12-17 12:59 | XMS_ITS | Clinical Summary ---
Author Organization [facility] Care Team Providers Care Animal Husbandry Worker Name Role Phone Unavailable Primary Care [...] 2) 2010 PSA Discussion 2015 Pneumococcal Immunization (50+ years) (2 of 2 - PCV) 07/01/2022 07/01/2021, 10/14/2014 Influenza Immunization (#1) 05/23/202406/22, 06/13/2020, 08/05/2018, Additional history exists SARS-COV-2 Immunization ( season) 2024 07/13/2021, 12/30/2020 [...]
--- OUTSIDE RECORDS SUMMARY | 2024-12-17 12:59 | XMS_ITS | Encounter Summary ---
Author Organization [facility] Healthcare Address [address] [place] [address] Care Team Providers Care Pet Care Assistant Name Role Phone Adair Rascon MD Unavailable [phone] Jane Rodriguez MD, Juan Duff Unavailable [phone] Yeison Feliz MD Primary Care Provider Amilcar Womack MD Primary Care Provider [phone] Encounter Details Date Type Department Care Team (Late st Contact Info) Description 09/03/2022 Telephone [facility] [address] [facility] [phone] [place] [address] Lacie Lucas Social History Tobacco Use Types [...] on file Legal Sex Male 12:13 PM RAMP BOSS Gender Identity Not on file Sexual Orientation Not on file documented as of this encounter Plan of Treatment Not on file documented as of this encounter Visit Diagnoses Not on filedocumented in this encounter Care Teams Pet Care Assistant Relationship Specialty Start Date End Date Yeison Feliz MD [address] [facility] [address] [place] [address] PCP - General Family Medicine 11/01/21 02/04/24 Amilcar Womack MD [address] [place] [address] PCP - General Family Medicine 02/05/24 [place] [address] [address] [address] Consulting Physician Internal Medicine 04/19/20 [place] [address] [address] [address] Surgeon General Surgery 04/19/20 documented as of this encounter
--- OUTSIDE RECORDS SUMMARY | 2024-12-17 13:00 | XMS_ITS | Referral Summary ---
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 Assessment & Plan (11/06/2021 11:43 AM CENTRAL STERILIZATION TECHNICIAN): Hba1c was Lab Results Component Value Date [...] pt. Assessment & Plan (11/06/2021 11:43 AM CENTRAL STERILIZATION TECHNICIAN): Check lipids Continue Lipitor Assessment & Plan (05/17/2021 10:49 AM CDT): Check lipid panel today Assessment & Plan (01/25/2021 3:46 PM CDT): At goal on current medications. Continue statin therapy. Assessment & Plan (06/22/2020 12:49 PM CDT): At goal on current medications. Continue statin therapy. Assessment & Plan (11/18/2019 4:51 PM CENTRAL STERILIZATION TECHNICIAN): Goal of treatment , LDL cholesterol less [...] plan. Assessment & Plan (11/18/2019 4:51 PM CENTRAL STERILIZATION TECHNICIAN): Goal blood pressure is less than 140/85 [...] 05/13/2019 Assessment & Plan (11/18/2019 10:36 AM CENTRAL STERILIZATION TECHNICIAN): Your Hba1c today was: Lab Results Component Value Date HGBA1C 11.1 11/18/2019 meaning a 3 month average sugar of : 284 Your goal hba1c is under 7.0 to prevent nursing home diabetes complications ( eye , kidney and [...] goal hba1c is under 7.0 to prevent superintendent container terminal diabetes complications ( eye , kidney and [...] goal hba1c is under 7.0 to prevent superintendent container terminal diabetes complications ( eye , kidney and [...] on file Legal Sex Male 12:13 PM CENTRAL STERILIZATION TECHNICIAN Gender Identity Not on file Sexual Orientation [...] on file Medical Devices Implanted Type Area Skull Splitter Device Identifier Shelf Expiration Date Model / Serial / Lot [employer] Device Closure Vascade Od5 Fr Femoral Artery [id number] - [id number] Implanted:Qty: 1 on 03/17/2024 by Sangeetha Coronado MD at [facility] [employer] 10/14/2025 700-500DX-0 5U / / [id number] Procedures Procedure Name Priority Date/Time Associated [...] - 03/13/2024 8:15 AM CDT Performed at: [address] [id number] Director Of Design: Dustin Augustine PhD, Phone: [phone] Declan Oliva MD LAB BLOOD ORDERABLES Fi nal Result [facility] - 01 * POCT lipid panel (03/05/2024 11:43 AM CDT) [facility] Cholesterol, POC 127 mg/dL Comment:GLU = [...] and children were not included. (Diabetes Care 31:9925-0766, 2008). The eAG is not equivalent to a fasting glucose. Blood 02/11/2024 3:51 PM CDT 02/11/2024 3:54 PM CDT Brenda Hernandez MD LAB BLOOD ORDERABLES Final Re sult [facility] [address] [place] [address] * (ABNORMAL) Albumin Creatinine Ratio, Urine (12/26/2022 3:59 PM CDT) Pathologist [facility] Albumin Ur 1,168.0 mg/L [facility] Comment: Interpretive Data No reference range established. Current interpretive data was last revised 2019. Creatinine Ur 54.9 mg/dL [facility] Comment: Interpretive Data No reference range established. Current interpretive data was last revised 2019. Albumin Creatinine Ratio, Ur 2,128(H) 1 - 29 mg/g [facility] Urine 12/26/2022 3:59 PM CDT 12/26/2022 7:11 PM CDT Leyla Celsetin MD LAB URINE ORDERABLES Final Resul t [facility] [address] [place] [address] from Last 3 Months or Most Recently Relevant to Health Maintenance Insurance IDPA [facility] MEDICARE ADVANTAGE IDPA [facility] MEDICARE ADVANTAGE [facility] MEDICARE ADVANTAGE [facility]IC[facility] Address: [address] [address] [place] [address] IDPA Advance Directives For more information, please contact: [phone] * Full Code (Latest Code Status on File) Date Activated Date Inactivated Comments 03/17/2024 10:40 AM 03/17/2024 4:56 PM * Full Code Date Activated Date Inactivated Comments 02/11/2024 1:47 AM 02/12/2024 5:02 PM * Full Code Date Activated Date Inactivated Comments 04/19/2020 12:49 PM 04/19/2020 6:47 PM Care Teams Bath Mix Operator Relationship Specialty Start Date End Date Amilcar Womack MD [address] [place] [address] PCP - General Family Medicine 02/05/24 [place] [address] [address] [address] Consulting Physician Internal Medicine 04/19/20 [place] [address] [address] [address] Surgeon General Surgery 04/19/20
--- OUTSIDE RECORDS SUMMARY | 2024-12-17 13:00 | XMS_ITS | Clinical Summary ---
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 Assessment & Plan (11/06/2021 11:43 AM ALGEBRAIST): Hba1c was Lab Results Component Value Date [...] pt. Assessment & Plan (11/06/2021 11:43 AM ALGEBRAIST): Check lipids Continue Lipitor Assessment & Plan (05/17/2021 10:49 AM CDT): Check lipid panel today Assessment & Plan (01/25/2021 3:46 PM CDT): At goal on current medications. Continue statin therapy. Assessment & Plan (06/22/2020 12:49 PM CDT): At goal on current medications. Continue statin therapy. Assessment & Plan (11/18/2019 4:51 PM ALGEBRAIST): Goal of treatment , LDL cholesterol less [...] plan. Assessment & Plan (11/18/2019 4:51 PM ALGEBRAIST): Goal blood pressure is less than 140/85 [...] 05/13/2019 Assessment & Plan (11/18/2019 10:36 AM ALGEBRAIST): Your Hba1c today was: Lab Results Component Value Date HGBA1C 11.1 11/18/2019 meaning a 3 month average sugar of : 284 Your goal hba1c is under 7.0 to prevent usp diabetes complications ( eye , kidney and [...] hba1c is under 7.0 to prevent termite helper diabetes complications ( eye , kidney [...] hba1c is under 7.0 to prevent termite helper diabetes complications ( eye , kidney [...] on file Legal Sex Male 12:13 PM ALGEBRAIST Gender Identity Not on file Sexual Orientation [...] history exists Medical Devices Implanted Type Area Filer Metal Patterns Device Identifier Shelf Expiration Date Model / Serial / Lot i'mma [facility] Device Closure Vascade Od5 Fr Femoral Artery [id number] - [id number] Implanted:Qty: 1 on 03/17/2024 by Sangeetha Coronado MD at [facility] [employer] [facility] 10/14/2025 700-500DX-0 5U / / [id number] Procedures Procedure Name Priority Date/Time Associated [...] 03/13/2024 8:15 AM CDT Performed at: - [address] [id number] Paint Striping Machine Operator: Dustin Augustine PhD, Phone: [phone] [facility] Cinthia Oliva MD LAB BLOOD ORDERABLES Fi nal Result [facility] - 01 * POCT lipid panel (03/05/2024 11:43 AM CDT) [facility] Cholesterol, POC 127 mg/dL Comment:GLU = 157 [...] and children were not included. (Diabetes Care 31:5473-9964, 2008). The eAG is not equivalent to a fasting glucose. Blood 02/11/2024 3:51 PM CDT 02/11/2024 3:54 PM CDT Brenda Hernandez MD LAB BLOOD ORDERABLES Final Re sult Performing Organization Address City/[facility] Co de Phone Number [facility] [address] [place] [address] * (ABNORMAL) Albumin Creatinine Ratio, Urine (12/26/2022 3:59 PM CDT) Albumin Ur 1,168.0 mg/L [facility] Comment: Interpretive Data No reference range established. Current interpretive data was last revised 2019. Creatinine Ur 54.9 mg/dL [facility] Comment: Interpretive Data No reference range established. Current interpretive data was last revised 2019. Albumin Creatinine Ratio, Ur 2,128(H) 1 - 29 mg/g [facility] Urine 12/26/2022 3:59 PM CDT 12/26/2022 7:11 PM CDT Leyla Celestin MD LAB URINE ORDERABLES Final Resul t Performing Organization Address City/[facility]/ZIP Co de Phone Number [facility] [address] [place] [place] [address] from Last 3 Months or Most Recently Relevant to Health Maintenance Insurance IDPA [facility] MEDICARE ADVANTAGE IDPA [facility] MEDICARE ADVANTAGE [facility] [place] [address] [place] [address] Advance Directives For more information, please contact: [phone] * Full Code (Latest Code Status on File) Date Activated Date Inactivated Comments 03/17/2024 10:40 AM 03/17/2024 4:56 PM * Full Code Date Activated Date Inactivated Comments 02/11/2024 1:47 AM 02/12/2024 5:02 PM * Full Code Date Activated Date Inactivated Comments 04/19/2020 12:49 PM 04/19/2020 6:47 PM Care Teams Emergency Room Orderly Relationship Specialty Start Date End Date Amilcar Womack MD [address] [address] PCP - General Family Medicine 02/05/24 [place] [address] [address] [address] Consulting Physician Internal Medicine 04/19/20 [place] [address] [address] [address] Surgeon General Surgery 04/19/20
--- NOTE | 2024-12-17 13:27 | ECG_ITS ---
Test Date: 2024-12-17 13:37:36 Measurements Intervals [place] Rate: 125 P: 0 NH: 0 QRS: -14 QRSD: 97 T: 36 QT: 322 QTc: 464 Interpretive Statements ATRIAL FLUTTER/TACHYCARDIA WITH RAPID VENTRICULAR RESPONSE LOW QRS VOLTAGE IN EXTREMITY LEADS [QRS DEFLECTION < 0.5 mV IN LIMB LEADS] POSSIBLE ANTERIOR MYOCARDIAL INFARCTION , PROBABLY OLD [30 ms Q WAVE IN V3/V4, OR R < 0.2 mV IN V4] NONSPECIFIC ST AND T-WAVE ABNORMALITY ABNORMAL RHYTHM ECG Compared to ECG 11/26/2024 20:13:07 Low QRS voltage now present Myocardial infarct finding now present Sinus rhythm no longer present T-wave abnormality no longer present Electronically Signed On 12-18-2024 09:51:46 CDT by Elie Quan M.D.
[2024-12-17 13:50] LABS: Basophils Absolute Auto 0.1 K/mm3 (0.0-0.1); Basophils Percent Auto 0.8 % (0.2-1.2); Eosinophils Absolute Auto 0.4 K/mm3 (0-0.3); Eosinophils Percent Auto 3.7 % (0-4.4); Hematocrit 35.3 % (42.0-52.0); Hemoglobin 11.1 g/dL (14.0-18.0); Immature Granulocyte Absolute 0.06 K/mm3 (0.00-0.031); Immature Granulocyte Percent A 0.5 % (0-0.5); Lymphocytes Absolute Auto 1.91 K/mm3 (0.9-3.2); Lymphocytes Percent Auto 15.9 % (18.3-44.2); Mean Corpuscular HGB Conc 31.4 g/dl (32-36); Mean Corpuscular Hemoglobin 25.6 pg (26-34); Mean Corpuscular Volume 81.5 fl (80-100); Mean Platelet Volume 9.5 fl (7.4-10.4); Monocytes Percent Auto 8.3 % (2.6-8.5); Neutrophils Absolute Auto 8.5 K/mm3 (1.3-6.7); Neutrophils Percent Auto 70.8 % (45.5-73.1); Nucleated Red Blood Cells Perc 0.3 % (0.0-0.2); Platelet Count Result 332 k/mm3 (150-375); Red Blood Count 4.33 M/mm3 (4.6-6.20); Red Cell Distribution Width 17.4 % (11.5-14.5)
[2024-12-17 13:59] LABS: Alanine Aminotransferase 298 U/L (6-50); Alkaline Phosphatase 340 U/L (38-126); Anion Gap 14 mmol/L (4-12); Aspartate Amino Transferase 215 U/L (17-59); Bilirubin,Total 0.5 mg/dL (0.2-1.3); Blood Urea Nitrogen 87 mg/dL (9-20); Calcium 8.2 mg/dL (8.4-10.2); Carbon Dioxide 19 mmol/L (22-30); Chloride 97 mmol/L (98-107); Estimated CRCL calculation 19 ml/min; Estimated Glomerular Filt Rate 14; Glucose 162 mg/dL (65-110); Potassium 5.3 mmol/L (3.4-5.0); Sodium 130 mmol/L (137-145)
--- OUTSIDE RECORDS SUMMARY | 2024-12-17 15:00 | XMS_ITS | Clinical Summary ---
Author Organization 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 Assessment & Plan (11/06/2021 11:43 AM END MATCHER): Hba1c was Lab Results Component Value Date [...] pt. Assessment & Plan (11/06/2021 11:43 AM END MATCHER): Check lipids Continue Lipitor Assessment & Plan (05/17/2021 10:49 AM CDT): Check lipid panel today Assessment & Plan (01/25/2021 3:46 PM CDT): At goal on current medications. Continue statin therapy. Assessment & Plan (06/22/2020 12:49 PM CDT): At goal on current medications. Continue statin therapy. Assessment & Plan (11/18/2019 4:51 PM END MATCHER): Goal of treatment , LDL cholesterol less [...] plan. Assessment & Plan (11/18/2019 4:51 PM END MATCHER): Goal blood pressure is less than 140/85 [...] 05/13/2019 Assessment & Plan (11/18/2019 10:36 AM END MATCHER): Your Hba1c today was: Lab Results Component Value Date HGBA1C 11.1 11/18/2019 meaning a 3 month average sugar of : 284 Your goal hba1c is under 7.0 to prevent senior living diabetes complications ( eye , kidney and [...] goal hba1c is under 7.0 to prevent exterminator termite diabetes complications ( eye , kidney and [...] goal hba1c is under 7.0 to prevent exterminator termite diabetes complications ( eye , kidney and [...] on file Legal Sex Male 12:13 PM END MATCHER Gender Identity Not on file Sexual Orientation [...] history exists Medical Devices Implanted Type Area Teradata Solution Architect Device Identifier Shelf Expiration Date Model / Serial / Lot [employer] [facility] Device Closure Vascade Od5 Fr Femoral Artery [id number] - [id number] Implanted:Qty: 1 on 03/17/2024 by Sangeetha Coronado MD at [facility] [employer] [facility] 10/14/2025 700-500DX-0 [id number] / / [id number] Procedures Procedure Name Priority Date/Time Associated [...] 03/13/2024 8:15 AM CDT Performed at: - [address] [id number] Business Insurance Agent: Dustin Augustine PhD, Phone: [phone] [facility] Cinthia Oliva MD LAB BLOOD ORDERABLES Fi nal Result [facility] - 01 * POCT lipid panel (03/05/2024 11:43 AM CDT) [facility] Cholesterol, POC 127 mg/dL Comment:GLU = 157 [...] and children were not included. (Diabetes Care 31:9028-2832, 2008). The eAG is not equivalent to a fasting glucose. Blood 02/11/2024 3:51 PM CDT 02/11/2024 3:54 PM CDT Brenda Hernandez MD LAB BLOOD ORDERABLES Final Re sult Performing Organization Address City/[facility] Co de Phone Number [facility] [address] [place] [address] * (ABNORMAL) Albumin Creatinine Ratio, Urine (12/26/2022 3:59 PM CDT) Albumin Ur 1,168.0 mg/L [facility] Comment: Interpretive Data No reference range established. Current interpretive data was last revised 2019. Creatinine Ur 54.9 mg/dL [facility] Comment: Interpretive Data No reference range established. Current interpretive data was last revised 2019. Albumin Creatinine Ratio, Ur 2,128(H) 1 - 29 mg/g [facility] Urine 12/26/2022 3:59 PM CDT 12/26/2022 7:11 PM CDT Leyla Celestin MD LAB URINE ORDERABLES Final Resul t Performing Organization Address City/[facility]/ZIP Co de Phone Number [facility] [address] [place] [place] [address] from Last 3 Months or Most Recently Relevant to Health Maintenance Insurance IDPA [facility] MEDICARE ADVANTAGE IDPA [facility] MEDICARE ADVANTAGE [facility] MEDIC[facility] ADVANTAGE IDPA Advance Directives For more information, please contact: [phone] * Full Code (Latest Code Status on File) Date Activated Date Inactivated Comments 03/17/2024 10:40 AM 03/17/2024 4:56 PM * Full Code Date Activated Date Inactivated Comments 02/11/2024 1:47 AM 02/12/2024 5:02 PM * Full Code Date Activated Date Inactivated Comments 04/19/2020 12:49 PM 04/19/2020 6:47 PM Care Teams Ticket Printer Relationship Specialty Start Date End Date Amilcar Womack MD [address] [address] PCP - General Family Medicine 02/05/24 [place] [address] [address] [address] Consulting Physician Internal Medicine 04/19/20 [place] [address] [address] [address] Surgeon General Surgery 04/19/20
--- OUTSIDE RECORDS SUMMARY | 2024-12-17 15:00 | XMS_ITS | Encounter Summary ---
Author Organization [facility] Healthcare Address [address] [place] [address] Care Team Providers Care Slab Tripper Name Role Phone Adair Rascon MD Unavailable [phone] Jane Rodriguez MD, Juan Duff Unavailable [phone] Yeison Feliz MD Primary Care Provider Amilcar Womack MD Primary Care Provider [phone] Encounter Details Date Type Department Care Team (Late st Contact Info) Description 09/03/2022 Telephone [facility] Trans[facility] Heart [address] [facility] [phone] [place] [address] Lacie Lucas Social History Tobacco Use Types [...] on file Legal Sex Male 12:13 PM SECURITY COORDINATOR Gender Identity Not on file Sexual Orientation Not on file documented as of this encounter Plan of Treatment Not on file documented as of this encounter Visit Diagnoses Not on filedocumented in this encounter Care Teams Slab Tripper Relationship Specialty Start Date End Date Yeison Feliz MD [address] [facility] [address] [place] [address] PCP - General Family Medicine 11/01/21 02/04/24 Amilcar Womack MD [address] [place] [address] PCP - General Family Medicine 02/05/24 [place] [address] [address] [address] Consulting Physician Internal Medicine 04/19/20 [place] [address] [address] [address] Surgeon General Surgery 04/19/20 documented as of this encounter
--- OUTSIDE RECORDS SUMMARY | 2024-12-17 15:00 | XMS_ITS | Referral Summary ---
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 Assessment & Plan (11/06/2021 11:43 AM BOTTOM CRANE OPERATOR): Hba1c was Lab Results Component Value [...] pt. Assessment & Plan (11/06/2021 11:43 AM BOTTOM CRANE OPERATOR): Check lipids Continue Lipitor Assessment & Plan (05/17/2021 10:49 AM CDT): Check lipid panel today Assessment & Plan (01/25/2021 3:46 PM CDT): At goal on current medications. Continue statin therapy. Assessment & Plan (06/22/2020 12:49 PM CDT): At goal on current medications. Continue statin therapy. Assessment & Plan (11/18/2019 4:51 PM BOTTOM CRANE OPERATOR): Goal of treatment , LDL cholesterol [...] plan. Assessment & Plan (11/18/2019 4:51 PM BOTTOM CRANE OPERATOR): Goal blood pressure is less than [...] 05/13/2019 Assessment & Plan (11/18/2019 10:36 AM BOTTOM CRANE OPERATOR): Your Hba1c today was: Lab Results Component Value Date HGBA1C 11.1 11/18/2019 meaning a 3 month average sugar of : 284 Your goal hba1c is under 7.0 to prevent intermediate diabetes complications ( eye , kidney and [...] hba1c is under 7.0 to prevent terminal manager diabetes complications ( eye , kidney and [...] hba1c is under 7.0 to prevent terminal manager diabetes complications ( eye , kidney and [...] on file Legal Sex Male 12:13 PM BOTTOM CRANE OPERATOR Gender Identity Not on file Sexual [...] on file Medical Devices Implanted Type Area Realtime Captioner Device Identifier Shelf Expiration Date Model / Serial / Lot [employer] Device Closure Vascade Od5 Fr Femoral Artery [id number] - [id number] Implanted:Qty: 1 on 03/17/2024 by Sangeetha Coronado MD at [facility] [employer] 10/14/2025 [id number] / / [id number] Procedures Procedure Name Priority Date/Time Associated [...] - 03/13/2024 8:15 AM CDT Performed at: [address] [id number] Repairer Typewriter: Dustin Augustine PhD, Phone: [phone] Declan Oliva MD LAB BLOOD ORDERABLES Fi nal Result [facility] - 01 * POCT lipid panel (03/05/2024 11:43 AM CDT) [facility] Cholesterol, POC 127 mg/dL Comment:GLU = [...] and children were not included. (Diabetes Care 31:[id number], 2008). The eAG is not equivalent to a fasting glucose. Blood 02/11/2024 3:51 PM CDT 02/11/2024 3:54 PM CDT Brenda Hernandez MD LAB BLOOD ORDERABLES Final Re sult [facility] [address] [employer] [place] [address] * (ABNORMAL) Albumin Creatinine Ratio, Urine (12/26/2022 3:59 PM CDT) Pathologist [facility] Albumin Ur 1,168.0 mg/L [facility] Comment: Interpretive Data No reference range established. Current interpretive data was last revised 2019. Creatinine Ur 54.9 mg/dL [facility] Comment: Interpretive Data No reference range established. Current interpretive data was last revised 2019. Albumin Creatinine Ratio, Ur 2,128(H) 1 - 29 mg/g [facility] Urine 12/26/2022 3:59 PM CDT 12/26/2022 7:11 PM CDT Leyla Celestin MD LAB URINE ORDERABLES Final Resul t [facility] [address] [place] [address] from Last 3 Months or Most Recently Relevant to Health Maintenance Insurance IDPA [facility] MEDICARE ADVANTAGE [employer]PA [facility] MEDICARE ADVANTAGE [facility] MEDICARE ADVANTAGE IDPA Advance Directives For more information, please contact: [phone] * Full Code (Latest Code Status on File) Date Activated Date Inactivated Comments 03/17/2024 10:40 AM 03/17/2024 4:56 PM * Full Code Date Activated Date Inactivated Comments 02/11/2024 1:47 AM 02/12/2024 5:02 PM * Full Code Date Activated Date Inactivated Comments 04/19/2020 12:49 PM 04/19/2020 6:47 PM Care Teams Factory Maintenance Manager Relationship Specialty Start Date End Date Amilcar Womack MD [address] [place] [id number] PCP - General Family Medicine 02/05/24 [place] [id number] [address] [id number] Consulting Physician Internal Medicine 04/19/20 [place] [id number] [address] [id number] Surgeon General Surgery 04/19/20
--- OUTSIDE RECORDS SUMMARY | 2024-12-17 15:00 | XMS_ITS | Clinical Summary ---
Author Organization [facility] Care Team Providers Care Sales Representative Metals Name Role Phone Unavailable Primary Care Provider [...]
--- NOTE | 2024-12-17 15:51 | ED_ITS ---
HPI - General Adult General Chief complaint: Weakness Stated complaint: weakness, high blood sugars Time Seen by Provider: 12/17/24 14:54 Source: patient and family Mode of arrival: wheelchair Limitations: no limitations History of Present Illness HPI narrative: 64-year-old with a history of hypertension, diabetes, CKD , above-knee amputation on the left , brought in b his family with a complaints of not feeling well , marked weakness , back pain for past 1 wk,fell a wk ago . He denies any LOC , has not been able to eat or drink enough fluids as he states he is lot of pain , He denies any fever or chills.complaints of intense itching , He denies taking any new medications,. Onset (ago): week(s) (1) Severity: moderate Quality: aching Pain Consistency: constant Associated symptoms: loss of appetite and weakness Treatments prior to arrival: none Related Data Home Medications ?Medication ?Instructions ?Recorded ?Confirmed ?Last Taken ?Type sertraline 100 mg tablet 100 mg PO DAILY 02/26/24 11/09/24 Unknown History metoprolol succinate 50 mg 50 mg PO DAILY 04/01/24 11/09/24 Unknown History tablet,extended release 24 hr sacubitril 24 mg-valsartan 26 mg 1 tablet PO BID 04/20/24 11/09/24 Unknown History tablet (Entresto) Allergies Allergy/AdvReac Type Severity Reaction Status Date / Time vancomycin Allergy Severe Anaphylactic Verified 12/17/24 12:48 Shock Review of Systems 2 Review of Systems: All systems reviewed & are unremarkable except as noted in HPI and below Constitutional: Constitutional: Reports no additional constitutional complaints Eyes: Eyes: Reports no additional eye complaints ENT: Reports system reviewed and no additional complaints, except as documented Cardiovascular: Cardiovascular: Reports no additional cardiovascular complaints Respiratory: Respiratory: Reports no additional respiratory complaints Gastrointestinal: Gastrointestinal: Reports no additional gastrointestinal complaints Genitourinary: Genitourinary: Reports no additional male genitourinary complaints Musculoskeletal: Musculoskeletal: Reports as per HPI Integumentary/Breasts: Skin/Breast: Reports as per HPI Neurologic: Reports system reviewed and no additional complaints, except as documented PMFSH Past Medical History Medical History Hypothyroidism PVD (peripheral vascular disease) HLD (hyperlipidemia) Essential 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 Type 2 diabetes mellitus with hyperglycemia, with long-term current use of insulin Leukocytosis Acute kidney injury Chronic, continuous use of opioids Chronic pain of both shoulders Toe infection Surgical History Surgical History Status post above-knee amputation of left lower extremity S/P amputation of limb Status post amputation of toe Family History Family History Father Family history of diabetes mellitus in first degree relative Hypertension Family history of coronary artery disease Mother Family history of diabetes mellitus in first degree relative Sibling Family history of diabetes mellitus in first degree relative Other Diabetes mellitus Family history of cardiovascular disease Social History Social History Smoking packs per day: 1.5 Smoking cigarettes per day: 30.0 Years smoked: 50 Smoking pack-years: 75.00 Smoking status: Current every day smoker Tobacco type: cigarettes Second hand tobacco smoke exposure: No Alcohol intake: never Substance use: current Substance use type: marijuana Do You Feel Safe in your Home?: Yes Lack of Transportation: No Lack of Food: Never True Current Housing: I Have Housing Concerned About Future Housing: No Difficulty Paying Gas/Electric Bills: No Difficulty Paying for Meds: No Currently Unemployed: No Education: High School Diploma/GED Difficulty w/ Childcare or Family Care: No Living arrangements: with family Additional living arrangements comments: girlfriend Occupation/Education: other Gender identity (if verbalized by the patient): Male Sexual Orientation (if Verbalized by the Patient): Straight or Heterosexual Spiritual care concerns: No Exam 2 Narrative: GENERAL: Well-appearing, well-nourished, and in no acute distress.crying and scratching all over HEAD: Normocephalic, atraumatic. EYES: PERRLA and EOMI. ENT: Nares clear, no rhinorrhea or epistaxis. Mucous membranes moist. NECK: Supple. CHEST: Clear to auscultation. No respiratory distress. HEART: Regular rate and rhythm. No murmur heard. Normal peripheral pulses. ABDOMEN: Soft, nontender, nondistended, normal active bowel sounds. EXTREMITIES: Normal range of motion. No edema.AKA on the left SKIN: Warm, dry, no rash. NEURO: No focal deficits. Alert and oriented x3. PSYCH: Normal mood and affect. Course Vital Signs Vital signs: Vital Signs Temperature 36.6 C 12/17/24 12:48 Pulse Rate 120 H 12/17/24 12:48 Respiratory Rate 20 12/17/24 12:48 Blood Pressure 118/78 12/17/24 12:48 Pulse Oximetry 100 12/17/24 12:48 Oxygen Delivery Room Air 12/17/24 12:48 Temperature 36.6 C 12/17/24 12:48 Pulse Rate 120 H 12/17/24 12:48 Respiratory Rate 20 12/17/24 12:48 Blood Pressure 118/78 12/17/24 12:48 Pulse Oximetry 100 12/17/24 12:48 Oxygen Delivery Room Air 12/17/24 12:48 Medical Decision Making Differential Diagnosis Differential Diagnosis: Dehydration, physical deconditioning. Sepsis Medical Records Medical records reviewed: Yes I reviewed the external patient's medical records. Vital Signs Vital Signs: Vital Signs Temperature 36.6 C 12/17/24 12:48 Pulse Rate 120 H 12/17/24 12:48 Respiratory Rate 20 12/17/24 12:48 Blood Pressure 118/78 12/17/24 12:48 Pulse Oximetry 100 12/17/24 12:48 Oxygen Delivery Room Air 12/17/24 12:48 Temperature 36.6 C 12/17/24 12:48 Pulse Rate 120 H 12/17/24 12:48 Respiratory Rate 20 12/17/24 12:48 Blood Pressure 118/78 12/17/24 12:48 Pulse Oximetry 100 12/17/24 12:48 Oxygen Delivery Room Air 12/17/24 12:48 Lab Data Lab results reviewed: Yes I reviewed the patient's lab results. 12/17/24 13:41 12/17/24 13:41 Labs: Lab Results 12/17/24 Range/Units 13:41 WBC 12.0 H (4.5-10.0) K/mm3 RBC 4.33 L (4.6-6.20) M/mm3 Hgb 11.1 L (14.0-18.0) g/dL Hct 35.3 L (42.0-52.0) % MCV 81.5 (80-100) fl MCH 25.6 L (26-34) pg MCHC 31.4 L (32-36) g/dl RDW 17.4 H (11.5-14.5) % Plt Count 332 (150-375) k/mm3 MPV 9.5 (7.4-10.4) fl Immature Gran % (Auto) 0.5 (0-0.5) % Neut % (Auto) 70.8 (45.5-73.1) % Lymph % (Auto) 15.9 L (18.3-44.2) % [place] % (Auto) 8.3 (2.6-8.5) % Eos % (Auto) 3.7 (0-4.4) % Baso % (Auto) 0.8 (0.2-1.2) % Lymph # (Auto) 1.91 (0.9-3.2) K/mm3 [place] # (Auto) 1.0 H (0.1-0.6) K/mm3 Eos # (Auto) 0.4 H (0-0.3) K/mm3 Baso # (Auto) 0.1 (0.0-0.1) K/mm3 Abs Immat Gran (auto) 0.06 H (0.00-0.031) K/mm3 Absolute Neuts (auto) 8.5 H (1.3-6.7) K/mm3 Absolute Nucleated RBC 0.030 H (0.0-0.012) K/mm3 Nucleated RBC % 0.3 H (0.0-0.2) % Sodium 130 L (137-145) mmol/L Potassium 5.3 H (3.4-5.0) mmol/L Chloride 97 L (98-107) mmol/L Carbon Dioxide 19 L (22-30) mmol/L Anion Gap 14 H (4-12) mmol/L BUN 87 H D (9-20) mg/dL Creatinine 4.30 H (0.7-1.3) mg/dL Estim Creat Clear Calc 19 ml/min Estimated GFR 14 L (59 - ) Glucose 162 H (65-110) mg/dL Calcium 8.2 L (8.4-10.2) mg/dL Total Bilirubin 0.5 (0.2-1.3) mg/dL AST 215 H (17-59) U/L ALT 298 H (6-50) U/L Alkaline Phosphatase 340 H (38-126) U/L Total Protein 6.0 L (6.3-8.2) g/dL Albumin 3.0 L (3.5-5.1) g/dL Imaging Data Radiologist's impression: ITS Impressions Chest X-Ray 12/17/24 14:01 Impression: 1: Bibasilar infiltrates, atelectasis versus pneumonia. 2: Small pleural effusions. Lumbar Spine X-Ray 12/17/24 15:44 IMPRESSION: Anterior loss of volume of L1 which is most likely chronic. MRI evaluation advised. Otherwise, No acute osseous abnormality lumbar spine. Degenerative disc disease at the level of L4-L5. ECG Data EKG #1: ECG completion date: 12/17/24 ECG completion time: 13:37 EKG Interpretation: bradycardia, tachycardia (125), atrial fibrillation, NL axis and no acute changes Discharge Plan Discharge Clinical Impression: Atrial flutter with rapid ventricular response, ELEANOR (acute kidney injury), Weakness, Pruritic condition Patient Disposition: Still a Patient Condition: Stable Patient Language: Arabic Prescriptions: No Action glucose 4 gram tablet,chewable 16 g PO Q15M PRN (Reason: hypoglycemia) Qty: 300 0RF Rx Instructions: until symptoms of low blood sugar are controlled Baqsimi 3 mg/actuation spray,non-aerosol 3 mg intranasal ONCE Qty: 1 0RF Rx Instructions: as a single dose hydrocodone-acetaminophen 5-325 mg tablet 1 tablet PO Q8H PRN (Reason: pain) Qty: 60 0RF sertraline 100 mg tablet 100 mg PO DAILY Entresto 24-26 mg tablet 1 tablet PO BID metoprolol succinate 50 mg tablet extended release 24 hr 50 mg PO DAILY Kerendia 10 mg tablet 10 mg PO DAILY Qty: 30 5RF Rx Instructions: his gfr is up to 4.3 and potassium is normal and I will check K in a week after starting. atorvastatin 80 mg tablet See Rx Instructions .ROUTE .COMPLEX Qty: 90 3RF Dose Instruction: TAKE 1 TABLET BY MOUTH DAILY Rx Instructions: TAKE 1 TABLET BY MOUTH DAILY ezetimibe 10 mg tablet 10 mg PO DAILY Qty: 90 1RF levothyroxine 125 mcg tablet See Rx Instructions .ROUTE .COMPLEX Qty: 180 3RF Dose Instruction: TAKE 2 TABLETS BY MOUTH DAILY FIRST THING IN THE MORNING ON EMPTY STOMACH. Rx Instructions: TAKE 2 TABLETS BY MOUTH DAILY FIRST THING IN THE MORNING ON EMPTY STOMACH. insulin lispro [Humalog U-100 Insulin] 100 unit/mL solution 1 sliding scale dose subcut USEASDIRECTD MDD 90 Qty: 100 0RF (DME) Dexcom G7 Sensor Device See Rx Instructions .Route Qty: 9 1RF Rx Instructions: change every 10 days Follow-up/Referrals: Amilcar Womack MD [Primary Care Provider] - Time of Disposition: 16:17
[2024-12-17] MEDS: ONDANSETRON INJ 4 MG/2 ML VIAL IV PUSH (15:53)
[2024-12-17] MEDS: SODIUM CHLORIDE 0.9% IV 1,000 ML 150 ML IV CONT (15:53)
[2024-12-17] MEDS: MORPHINE SULFATE (*CRX) 4 MG/ML INJ IV PUSH (15:53)
[2024-12-17] MEDS: diphenhydrAMINE HCl INJ 50 MG/ML VIAL (15:54)
[2024-12-17] MEDS: dilTIAZem HCl INJ 25 MG/5 ML VIAL 10 MG IV PUSH (16:18)
[2024-12-17 16:20] LABS: Creatine Kinase 371 U/L (55-170)
--- NOTE | 2024-12-17 16:45 | PM.IMHP ---
H&P: HPI History of Present Illness Date/Time: 12/17/24 16:45 Chief Complaint: Weakness and overall not feeling well. Narrative: This is a 64-year-old male smoker with history of transient ischemic attack, congestive heart failure with mildly reduced ejection fraction and diastolic dysfunction, hypertension, dyslipidemia, chronic kidney disease, insulin-dependent type 2 diabetes mellitus with peripheral neuropathy and albuminuria, chronic kidney disease stage 3B, status post left [id number] amputation related to infection Charcot foot, and hypothyroidism who presented to the emergency department via private vehicle with complaints of weakness and overall not feeling well. He had URI symptoms at the beginning of November and for which he completed two Z-Paks with eventual improvement in those symptoms. Unfortunately he has not felt well since that time with symptoms to include generalized weakness, malaise, slight decrease in appetite, mild shortness of breath with exertion, and diarrhea at least 5 to 6 times a day. He has gotten progressively more weak and is to the point that he is no longer able to transfer himself to and from the wheelchair. Last Friday he fell due to the weakness. He landed on his buttocks and his had some discomfort in the low back since that time but denies sustaining any other injuries. There was no loss of consciousness associated with that. He also complains of all-over itching, worse on the back, which has been going on for several weeks. He does not think he has had a rash. He denies fever, headache, neck ache, chest pain, pleuritic pain, palpitations, abdominal pain, vomiting, melena, hematochezia, hematuria, and dysuria. In the ED: Vital signs were stable on arrival. Labs are significant for WBC count 12.0, hemoglobin 11.1, sodium 130, potassium 5.3, chloride 97, carbon dioxide 19, anion gap 14, BUN 87, creatinine 4.30, glucose 162, calcium 8.2, total bilirubin 0.5, AST 215, ALT 298, alkaline phosphatase 340, total creatinine kinase 371, total protein 6.0, albumin 3.0. Chest x-ray showed bibasilar infiltrates, atelectasis versus pneumonia, and small pleural effusions. Lumbar spine x-ray showed anterior loss of volume of L1 which is likely chronic. He was negative for flu, RSV, and COVID. He received diltiazem 10 mg IV x1 for reported atrial flutter with rapid ventricular response and he is being admitted in this setting for further treatment evaluation of acute on chronic kidney injury and transaminitis. Review of Systems Review of Systems: 12 systems were reviewed and are negative except for as per HPI. FOR[facility]LY [facility] Past Medical History Medical History (Updated 12/17/24 @ 22:32 by Stephanie Ceron PA-C) Tobacco dependence Diastolic dysfunction Heart failure with mildly reduced ejection fraction Albuminuria Diabetic peripheral neuropathy Insulin dependent type 2 diabetes mellitus Stage 3b chronic kidney disease Dyslipidemia Peripheral vascular disease Hypothyroidism Essential hypertension Chronic, continuous use of opioids Chronic pain of both shoulders Surgical History Surgical History History of left above knee amputation History of amputation of lesser toe of right foot Family History Family History Father Family history of diabetes mellitus in first degree relative Hypertension Family history of coronary artery disease Mother Family history of diabetes mellitus in first degree relative Sibling Family history of diabetes mellitus in first degree relative Other Diabetes mellitus Family history of cardiovascular disease Social History Social History Social History: Surrogate medical decision maker: Cristal Frye, friend. Code status: Full code. Smoking packs per day: 1.5 Smoking cigarettes per day: 30.0 Years smoked: 50 Smoking pack-years: 75.00 Smoking status: Current every day smoker Tobacco type: cigarettes Second hand tobacco smoke exposure: No Alcohol intake: former Substance use: current Substance use type: marijuana Do You Feel Safe in your Home?: Yes Lack of Transportation: No Lack of Food: Never True Current Housing: I Have Housing Concerned About Future Housing: No Difficulty Paying Gas/Electric Bills: No Difficulty Paying for Meds: No Currently Unemployed: No Education: High School Diploma/GED Difficulty w/ Childcare or Family Care: No Living arrangements: with family Additional living arrangements comments: girlfriend Occupation/Education: other Spiritual care concerns: No Meds Home Medications and Allergies Home Medications ?Medication ?Instructions ?Recorded ?Confirmed ?Type hydrocodone 5 mg-acetaminophen 325 1 tablet PO Q8H PRN pain #60 tabs 04/27/20 12/17/24 Rx mg tablet glucagon 3 mg/actuation nasal 3 mg intranasal ONCE #1 ea 08/06/23 12/17/24 Rx spray (Baqsimi) glucose 4 gram chewable tablet 16 g (4 x 4 gram) PO Q15M PRN 08/06/23 12/17/24 Rx hypoglycemia #300 tabs sertraline 100 mg tablet 100 mg PO DAILY 02/26/24 12/17/24 History metoprolol succinate 50 mg 50 mg PO DAILY 04/01/24 12/17/24 History tablet,extended release 24 hr sacubitril 24 mg-valsartan 26 mg 1 tablet PO BID 04/20/24 12/17/24 History tablet (Entresto) finerenone 10 mg tablet (Kerendia) 10 mg PO DAILY #30 tabs 04/23/24 12/17/24 Rx atorvastatin 80 mg tablet See Rx Instructions .Route 05/14/24 12/17/24 Rx .COMPLEX #90 tabs ezetimibe 10 mg tablet 10 mg PO DAILY #90 tabs 08/05/24 12/17/24 Rx levothyroxine 125 mcg tablet See Rx Instructions .Route 10/08/24 12/17/24 Rx .COMPLEX #180 tabs insulin lispro 100 unit/mL 1 sliding scale dose subcut 10/26/24 12/17/24 Rx subcutaneous solution (Humalog USEASDIRECTD insulin pump #100 mL U-100 Insulin) blood-glucose sensor (Dexcom G7 #9 ea 11/02/24 12/17/24 Rx Sensor device) Allergies Allergy/AdvReac Type Severity Reaction Status Date / Time vancomycin Allergy Severe Anaphylactic Verified 12/17/24 18:16 Shock Vital Signs Vital Signs - 24 hr 12/17/24 12:48 Temperature 97.8 F Pulse Rate 120 H Respiratory Rate 20 Blood Pressure 118/78 Pulse Oximetry 100 Oxygen Delivery Room Air Exam Narrative: General: Chronically ill-appearing gentleman sitting up in bed in no acute distress. Weight: 107.6 kg. BMI: 30.5. HEENT: PERRL, EOMI. Sclera anicteric. Tacky mucous membranes. Neck: Supple. No JVD. Respiratory: Respirations are nonlabored and he is speaking in full sentences. Lung sounds are diminished at the bases with crackles on the left. Cardiovascular: Regular rate and rhythm with S1-S2. Gastrointestinal: Abdomen is soft and slightly distended with positive bowel sounds. Negative [place] sign. No guarding or rebound tenderness. Skin: Warm and dry. Chronic skin changes of the right lower leg with mild erythema but no warmth or tenderness. There are some scabbed over lesions on the dorsum of both hands which he relates to abrasions while using his wheelchair. Extremities: No cyanosis or clubbing. Status post left above the knee amputation. Pitting edema of the right lower extremity. Radial pulses palpable. Distal right lower extremity pulses heart with the Doppler. Neurological: Alert. Cranial nerves 2-12 are grossly intact. Generalized weakness without gross focal findings. Psychiatric: Pleasant and cooperative with appropriate mood and affect. H&P: Results Labs Labs: Short CBC 12/17/24 Range/Units 13:41 WBC 12.0 H (4.5-10.0) K/mm3 Hgb 11.1 L (14.0-18.0) g/dL Hct 35.3 L (42.0-52.0) % Plt Count 332 (150-375) k/mm3 BMP 12/17/24 13:41 Sodium 130 L Potassium 5.3 H Chloride 97 L Carbon Dioxide 19 L BUN 87 H D Creatinine 4.30 H Glucose 162 H Calcium 8.2 L Cardiac Enzymes 12/17/24 Range/Units 13:41 Total Creatine Kinase 371 H (55-170) U/L Liver Function 12/17/24 Range/Units 13:41 Total Bilirubin 0.5 (0.2-1.3) mg/dL AST 215 H (17-59) U/L ALT 298 H (6-50) U/L Alkaline Phosphatase 340 H (38-126) U/L Albumin 3.0 L (3.5-5.1) g/dL Imaging Chest X-Ray 12/17/24 14:01 Impression: 1: Bibasilar infiltrates, atelectasis versus pneumonia. 2: Small pleural effusions. Lumbar Spine X-Ray 12/17/24 15:44 IMPRESSION: 1: Anterior loss of volume of L1 which is most likely chronic. MRI evaluation advised. Otherwise, No acute osseous abnormality lumbar spine. 2: Degenerative disc disease at the level of L4-L5. Assessment and Plan Assessment and plan (1) Acute on chronic kidney failure: Code(s): N17.9 - Acute kidney failure, unspecified; N18.9 - Chronic kidney disease, unspecified Status: Acute (2) Transaminitis: Code(s): R74.01 - Elevation of levels of liver transaminase levels Status: Acute (3) Electrolyte abnormality: Code(s): E87.8 - Other disorders of electrolyte and fluid balance, not elsewhere classified Status: Acute (4) Pneumonia: Code(s): J18.9 - Pneumonia, unspecified organism Status: Acute (5) Heart failure with mildly reduced ejection fraction: Code(s): I50.22 - Chronic systolic (congestive) heart failure Status: Acute (6) Diastolic dysfunction: Code(s): I51.89 - Other ill-defined heart diseases Status: Acute (7) Atrial tachycardia: Code(s): I47.19 - Other supraventricular tachycardia Status: Acute (8) Essential hypertension: Code(s): I10 - Essential (primary) hypertension Status: Acute (9) Peripheral vascular disease: Code(s): I73.9 - Peripheral vascular disease, unspecified Status: Acute (10) Insulin dependent type 2 diabetes mellitus: Code(s): E11.9 - Type 2 diabetes mellitus without complications; Z79.4 - detention (current) use of insulin Status: Acute (11) Hypothyroidism: Code(s): E03.9 - Hypothyroidism, unspecified Status: Acute (12) Tobacco dependence: Code(s): F17.200 - Nicotine dependence, unspecified, uncomplicated Status: Acute Plan The patient presented to the emergency department for evaluation of generalized weakness over the last couple of weeks following a URI as detailed in HPI. Labs, imaging, EKG, and all reports were personally reviewed. He has an acute on chronic kidney injury which is likely due to a combination of factors including mild dehydration from decreased oral intake and diarrhea in the setting of ARNI and MRA use. He was recently on azithromycin but has not been on any new drugs recently. Bladder scan ordered to rule out urinary retention. Urinalysis another urine studies are pending. He will be judiciously hydrated overnight with close monitoring of volume status, renal function, and electrolytes. Repeat BMP this evening to ensure potassium is coming down. Hold ARNI and MRA for now pending nephrology consult. His abdominal exam is benign and is unclear why his AST, ALT, and alkaline phosphatase are elevated. Bilirubin is well within normal limits. Total CK is a bit elevated and will be monitored. Right upper quadrant ultrasound is pending. Hold statin for now. He is now in a sinus rhythm after receiving diltiazem 10 mg IV x1. Right lower extremity venous Doppler ultrasound and arterial ultrasound has been ordered for evaluation of edema and decreased pulses. He has been started on ceftriaxone and doxycycline for findings of possible pneumonia on chest x-ray. Patient may use his home insulin pump and continuous glucose monitor. Initiate sliding scale insulin, Accu-Cheks, and hypoglycemic protocol. Smoking cessation is imperative and was discussed. Nicotine patch ordered per patient request. His home medications will be reviewed and resumed as appropriate. Findings and treatment plan were discussed with the patient. Questions were solicited and answered to satisfaction. The patient's medical management will be taken over by the hospitalist team in a.m. Quality VTE Prophylaxis VTE prophylaxis: pharmacologic ordered Hospitalist [facility] Advance Care Plan I have confirmed that the patient's Advanced Care Plan is present, code status is documented, or surrogate decision maker is listed in patient medical record.: Yes Medication Reconciliation I have utilized all available resources to obtain, update and review the patients current medications (includes all prescriptions, OTC, herbals, cannabis, and nutritional supplements).: Yes
[2024-12-17 16:59] LABS: Influenza A QL RT-PCR Negative (Negative); Influenza B QL RT-PCR Negative (Negative); RSV RNA, RT-PCR Negative (Negative); SARS-CoV-2 RNA PCR Negative (Negative)
[2024-12-17 18:48] LABS: Alanine Aminotransferase 288 U/L (6-50); Alkaline Phosphatase 331 U/L (38-126); Anion Gap 10 mmol/L (4-12); Aspartate Amino Transferase 186 U/L (17-59); Bilirubin,Total 0.5 mg/dL (0.2-1.3); Blood Urea Nitrogen 85 mg/dL (9-20); Calcium 8.2 mg/dL (8.4-10.2); Carbon Dioxide 23 mmol/L (22-30); Chloride 96 mmol/L (98-107); Estimated CRCL calculation 21 ml/min; Estimated Glomerular Filt Rate 14; Glucose 148 mg/dL (65-110); Potassium 4.9 mmol/L (3.4-5.0); Sodium 129 mmol/L (137-145)
[2024-12-17 18:50] LABS: INR 1.3; Prothrombin Time 16.8 Seconds (11.1-14.7)
[2024-12-17 18:51] LABS: Partial Thromboplastin Time 38.5 Seconds (22.3-36.8)
--- NOTE | 2024-12-17 18:54 | ADMGEN ---
This patient, Jose Mckinney Jr., was admitted to IMU Room 203-01. Patient/family oriented to hospital policies and general routines including ID bracelet, bed and alarms, visiting hours, pain management, procedures, bathroom and other care routines, personal items, smoking policy, room service/diet, and visiting hours. Information on how to activate the Rapid Response Team has been discussed. Patient/Family are encouraged to report perceived risks to care and to ask questions if they do not understand what they are told or what they should do. Admission assessment completed and charted. Head to toe assessment completed and charted. pt voiced no complaints or concerns at this time. Photos taken of pts right hand. personal items in reach. call light in reach. bed locked and alarm on. Will continue to monitor. Zeke Ricks RN
[2024-12-17 19:33] LABS: Hepatitis B Surface Antigen Negative (Negative)
[2024-12-17 19:38] LABS: HAV RESULT Negative (Negative); Hepatitis B Core IgM Result Negative (Negative)
[2024-12-17 19:50] LABS: Hepatitis C Virus Antibody Negative (Negative)
[2024-12-17 19:56] LABS: Acetaminophen < 10 ug/mL (10-30)
[2024-12-17 20:15] LABS: Glucose Point of Care 201 mg/dl (65-105)
[2024-12-17] MEDS: SACUBITRIL/VALSARTAN 24-26 MG TABLET 1 TAB PO (21:17)
[2024-12-17] MEDS: SODIUM CHLORIDE 0.9% IV 1,000 ML 125 ML IV CONT (22:56)
[2024-12-17] MEDS: DOXYCYCLINE HYCLATE 100 MG TABLET PO (22:58)
[2024-12-17] MEDS: NICOTINE (*PBKC) 21 MG PATCH 1 PATCH TRANSDERM (22:58)
[2024-12-17] MEDS: MORPHINE SULFATE (*CRX) 2 MG/ML INJ IV PUSH (23:02)
[2024-12-17 23:25] LABS: Glucose Point of Care 212 mg/dl (65-105)
[2024-12-17 23:29] LABS: Complement C3 90 mg/dL (88-165)
[2024-12-17 23:33] LABS: Erythrocyte Sedimentation Rate 64 mm/hr (0-20)
[2024-12-18] VITALS (16 sets, daily range): BP systolic 109–152; BP diastolic 41–92; PULSE 115–125; RESP 18–24; TEMP 36.3–36.6; O2SAT 96–100
[2024-12-18] MEDS: PERFLUTREN LIPID MICROSPHERES 1.5 ML VIAL DILUTED TO 10 ML TOTAL VOLUME IV PUSH (00:35)
[2024-12-18] MEDS: diphenhydrAMINE HCl CAP 25 MG CAPSULE PO (02:18)
[2024-12-18 03:24] LABS: MRSA (PCR) NOT DETECTED (NOT DETECTE)
[2024-12-18 03:36] LABS: Creatinine Urine 65.3 mg/dL
[2024-12-18 03:38] LABS: Add Urine Microscopic? YES; Appearance Urine Cloudy (Clear); Bacteria Urine None Seen /hpf; Bilirubin Urine Negative (Negative); Blood Urine Trace (Negative); Color Urine Yellow (Yellow); Glucose Urine UA 1+ mg/dL (Negative); Granular Casts Urine Present /lpf; Hyaline Casts Urine Present /lpf; Ketones Urine Negative (Negative); Leukocyte Esterase Ur Trace LEU/UL (Negative); Mucus Urine Present /lpf; Need Manual Microscopic Reviewed; Nitrate Urine Negative (Negative); Protein Urine 3+ mg/dL (Negative); RBC Urine 0-2 /hpf (0-2); Specific Grav Ur 1.013 (1.001-1.035); Squamous Epithelial Cell Urine None Seen /hpf (Few); Urobilinogen Urine 0.2 mg/dL (<2.0)
[2024-12-18 03:51] LABS: Creatinine Urine 65.2 mg/dL
[2024-12-18 03:54] LABS: Eosinophil Urine None Seen % (None Seen); Potassium Urine Random 28.3 meq/L; Sodium Urine Random 42 meq/L; Urine Eos QC 2nd Tech Confirmed
[2024-12-18 04:23] LABS: Total Protein Urine Random 305 mg/dL; Ur Ttl Prot Creatinine Ratio 4.67 mg/mg (0-0.20)
[2024-12-18 04:43] LABS: Basophils Absolute Auto 0.1 K/mm3 (0.0-0.1); Basophils Percent Auto 0.8 % (0.2-1.2); Eosinophils Absolute Auto 0.6 K/mm3 (0-0.3); Eosinophils Percent Auto 5.6 % (0-4.4); Hematocrit 38.1 % (42.0-52.0); Hemoglobin 11.7 g/dL (14.0-18.0); Immature Granulocyte Absolute 0.06 K/mm3 (0.00-0.031); Immature Granulocyte Percent A 0.6 % (0-0.5); Lymphocytes Absolute Auto 1.69 K/mm3 (0.9-3.2); Lymphocytes Percent Auto 16.1 % (18.3-44.2); Mean Corpuscular HGB Conc 30.7 g/dl (32-36); Mean Corpuscular Hemoglobin 25.3 pg (26-34); Mean Corpuscular Volume 82.3 fl (80-100); Mean Platelet Volume 9.1 fl (7.4-10.4); Monocytes Absolute Auto 0.6 K/mm3 (0.1-0.6); Monocytes Percent Auto 5.7 % (2.6-8.5); Neutrophils Absolute Auto 7.5 K/mm3 (1.3-6.7); Neutrophils Percent Auto 71.2 % (45.5-73.1); Nucleated Red Blood Cells Perc 0.3 % (0.0-0.2); Platelet Count Result 346 k/mm3 (150-375); Red Blood Count 4.63 M/mm3 (4.6-6.20); White Blood Count 10.5 K/mm3 (4.5-10.0)
[2024-12-18 04:58] LABS: Alanine Aminotransferase 277 U/L (6-50); Albumin Level 3.1 g/dL (3.5-5.1); Alkaline Phosphatase 318 U/L (38-126); Anion Gap 11 mmol/L (4-12); Aspartate Amino Transferase 135 U/L (17-59); Bilirubin,Total 0.7 mg/dL (0.2-1.3); Blood Urea Nitrogen 87 mg/dL (9-20); Calcium 8.3 mg/dL (8.4-10.2); Carbon Dioxide 27 mmol/L (22-30); Chloride 96 mmol/L (98-107); Creatine Kinase 353 U/L (55-170); Estimated CRCL calculation 20 ml/min; Estimated Glomerular Filt Rate 13; Glucose 149 mg/dL (65-110); Phosphorus 6.5 mg/dL (2.5-4.5); Potassium 4.7 mmol/L (3.4-5.0); Sodium 134 mmol/L (137-145)
[2024-12-18 05:53] LABS: Free T4 Free Thyroxine Reflex 0.96 ng/dL (0.78-2.19)
[2024-12-18 06:40] LABS: Total Triiodothyronine (T3) 0.49 NG/ML (0.97-1.69)
[2024-12-18] MEDS: LEVOTHYROXINE SODIUM 125 MCG TABLET 250 MCG BY MOUTH (06:58)
[2024-12-18] MEDS: MORPHINE SULFATE (*CRX) 2 MG/ML INJ IV PUSH (07:00)
[2024-12-18] MEDS: ONDANSETRON INJ 4 MG/2 ML VIAL IV PUSH (07:01)
[2024-12-18] MEDS: SODIUM CHLORIDE 0.9% IV 1,000 ML 125 ML IV CONT ×2 (07:07→17:15)
[2024-12-18 07:43] LABS: Glucose Point of Care 139 mg/dl (65-105)
[2024-12-18 07:43] LABS: Glucose Point of Care 147 mg/dl (65-105)
[2024-12-18] MEDS: SERTRALINE HCL 50 MG TABLET 100 MG PO (08:24)
[2024-12-18] MEDS: NICOTINE (*PBKC) 21 MG PATCH 1 PATCH TRANSDERM (08:24)
[2024-12-18] MEDS: EZETIMIBE 10 MG TABLET PO (08:25)
[2024-12-18] MEDS: HEPARIN SODIUM 5,000 UNITS/ML VIAL 5000 UNITS SUB-Q ×2 (08:25→20:55)
[2024-12-18] MEDS: DOXYCYCLINE HYCLATE 100 MG TABLET PO ×2 (08:25→20:54)
[2024-12-18] MEDS: METOPROLOL SUCCINATE EXT REL 50 MG TABCR PO (08:25)
[2024-12-18] MEDS: SACUBITRIL/VALSARTAN 24-26 MG TABLET 1 TAB PO (08:25)
--- NOTE | 2024-12-18 09:54 | IVDEFINITY ---
Prior to administration of IV Definity the patient was educated on the risks and benefits of the imaging enhancing agent including potential adverse side effects. The patient verbalized understanding. Allergies were verified. No exclusion criteria were identified and at least one of the following inclusion criteria were met: 1) physician request, 2) patient technically difficult to image (per the [place] [employer] guidelines of two or more segments not discernable within the apical view), or 3) questionable left ventricular function. ?
[2024-12-18 11:17] LABS: Urea Random Urine 377 MG/DL
[2024-12-18 12:17] LABS: Eosinophil Urine None Seen % (None Seen); Urine Eos QC 2nd Tech Confirmed
[2024-12-18 12:26] LABS: Glucose Point of Care 154 mg/dl (65-105)
--- NOTE | 2024-12-18 12:50 | P.CONNP_ITS ---
Assessment and Plan Assessment and plan (1) Acute kidney injury: Code(s): N17.9 - Acute kidney failure, unspecified Status: Acute Assessment and Plan: * as noted on admission * evaluation to date noted: * renal u/s normal * urine eosinophils negative * nephrotic range proteinuria * prerenal urine electrolytes * CPK mildly elevated (but not enought to affect kidney function) * further serologies pending * outpatient evaluation noted - normal complements but hematuria with positive * remains at risk for [employer]/dialysis * attempt renal biopsy if able * follow trend of repeat labs and UOP (2) Stage 3b chronic kidney disease: Code(s): N18.32 - Chronic kidney disease, stage 3b Status: Chronic Assessment and Plan: * baseline creatinine runs around 1.7 - 2.3mg/dl * suspected to be secondary to diabetes and hypertension * HOWEVER, positive noted in association with hematuria and nephrotic range proteinuria as well as rise in creatinine to 2.76mg/dl noted on outpatient testing in early Oct 2024 * renal biopsy recommended during office visit with Dr. Britt at that time (but apparently was never done) (3) Pneumonia: Code(s): J18.9 - Pneumonia, unspecified organism Status: Acute Assessment and Plan: * admission CXR with bibasilar infiltrates * mildly elevated WBC but no fevers * on empiric antibiotics * follow culture data (4) Heart failure with mildly reduced ejection fraction: Code(s): I50.22 - Chronic systolic (congestive) heart failure Status: Acute Assessment and Plan: * known history * repeat Echo (12/18) noted: * severely reduced systolic function with EF 25-30% * diastolic dysfunction * mild valvular disease * moderate pulmonary hypertension * CXR with cardiomegaly, bibasilar infiltrates and small pleural effusions * Entresto and diuretics on hold given #1 * follow daily weights and volume status closely * Cardiology following (5) Transaminitis: Code(s): R74.01 - Elevation of levels of liver transaminase levels Status: Deleted Assessment and Plan: * normal earlier in November 2024 * noted recently * hepatitis panel negative * abd US showing cholelithiasis and mildly dilated CBD; liver is normal in appearance * holding statin * follow trend (6) Anemia: Code(s): D64.9 - Anemia, unspecified Status: Acute Assessment and Plan: * related to ELEANOR, CKD, and acute illness * follow trend of H/H * no need for KALI at this time (7) Peripheral vascular disease: Code(s): I73.9 - Peripheral vascular disease, unspecified Status: Acute Assessment and Plan: * known history * on zetia but statin on hold given elevated LFTs * complicated by ongoing smoking * arterial dopplers noted (8) Diabetes mellitus type 2 with complications: Code(s): E11.8 - Type 2 diabetes mellitus with unspecified complications Status: Chronic Assessment and Plan: * follow accu-cheks * glycemic control per hospitalist I will continue to follow the patient with you while he remains hospitalized and make further recommendations as deemed necessary. Thank you for allowing me to participate in the care of this patient. L History of Present Illness Reason for Consult Consult date: 12/18/24 Reason for consult: acute renal failure (on chronic kidney disease) Chief Complaint Chief complaint: ELEANOR,AFLUTTER WITH RVR History of Present Illness Narrative: The patient is a 64-year-old male male with a past medical history as outlined below who presented to the ER with complaints of weakness and overall not feeling well. He had URI symptoms at the beginning of November and for which he completed two Z- Paks with eventual improvement in those symptoms. Unfortunately he has not felt well since that time with symptoms to include generalized weakness, malaise, slight decrease in appetite, mild shortness of breath with exertion, and diarrhea at least 5 to 6 times a day. He has gotten progressively more weak and is to the point that he is no longer able to transfer himself to and from the wheelchair. Last Friday he fell due to the weakness. He landed on his buttocks and his had some discomfort in the low back since that time but denies sustaining any other injuries. There was no loss of consciousness associated with that. He also complains of all-over itching, worse on the back, which has been going on for several weeks. He does not think he has had a rash. He denies fever, headache, neck ache, chest pain, pleuritic pain, palpitations, abdominal pain, vomiting, melena, hematochezia, hematuria, and dysuria. Evaluation in the ER noted - vital signs were stable on arrival. Labs are significant for WBC count 12.0, hemoglobin 11.1, sodium 130, potassium 5.3, chloride 97, carbon dioxide 19, anion gap 14, BUN 87, creatinine 4.30, glucose 162, calcium 8.2, total bilirubin 0.5, AST 215, ALT 298, alkaline phosphatase 340, total creatinine kinase 371, total protein 6.0, albumin 3.0. Chest x-ray showed bibasilar infiltrates, atelectasis versus pneumonia, and small pleural effusions. Lumbar spine x-ray showed anterior loss of volume of L1 which is likely chronic. He was negative for flu, RSV, and COVID. He received diltiazem 10 mg IV x1 for reported atrial flutter with rapid ventricular response and he is being admitted in this setting for further treatment evaluation of acute on chronic kidney injury and transaminitis. Since his admission, his renal function has not really improved and has been having issues and problems with significant itching/ pruritus that has kept him all night. Renal consultation was requested due to his acute kidney injury/ acute renal failure on top of his baseline chronic kidney disease. From review his records, the patient has a baseline creatinine that normally runs around 1.7-2.3 mg/dL although it has been as high as 2.9 mg/dL in the past. He normally follows with Dr. Rik Britt for management of his chronic kidney disease and was last seen in October of this year where his creatinine was up to 2.76 mg/dL. It was presumed that his baseline kidney disease is secondary to hypertension, vascular disease, and diabetes although recent testing in October noted a positive in association with hematuria as well as nephrotic range proteinuria. Renal biopsy was recommended at that time which apparently the patient was willing to proceed with but this apparently never occurred due to her current illnesses according to the patient. Currently, at the time my evaluation, he is in no acute distress and actually sleeping comfortably when seen. Review of Systems 2 Review of Systems: As per HPI. [facility] Past Medical History Medical History Tobacco dependence Diastolic dysfunction Heart failure with mildly reduced ejection fraction Albuminuria Diabetic peripheral neuropathy Insulin dependent type 2 diabetes mellitus Stage 3b chronic kidney disease Dyslipidemia Peripheral vascular disease Hypothyroidism Essential hypertension Chronic, continuous use of opioids Chronic pain of both shoulders Surgical History Surgical History History of left above knee amputation History of amputation of lesser toe of right foot Family History Family History Father Family history of diabetes mellitus in first degree relative Hypertension Family history of coronary artery disease Mother Family history of diabetes mellitus in first degree relative Sibling Family history of diabetes mellitus in first degree relative Other Diabetes mellitus Family history of cardiovascular disease Social History Social History Social History: Surrogate medical decision maker: Cristal Frye, friend. Code status: Full code. Smoking packs per day: 1.5 Smoking cigarettes per day: 30.0 Years smoked: 50 Smoking pack-years: 75.00 Smoking status: Current every day smoker Tobacco type: cigarettes Second hand tobacco smoke exposure: No Alcohol intake: former Substance use: current Substance use type: marijuana Do You Feel Safe in your Home?: Yes Lack of Transportation: No Lack of Food: Never True Current Housing: I Have Housing Concerned About Future Housing: No Difficulty Paying Gas/Electric Bills: No Difficulty Paying for Meds: No Currently Unemployed: No Education: High School Diploma/GED Difficulty w/ Childcare or Family Care: No Living arrangements: with family Additional living arrangements comments: girlfriend Occupation/Education: other Spiritual care concerns: No Meds Home Medications and Allergies Home Medications ?Medication ?Instructions ?Recorded ?Confirmed ?Type hydrocodone 5 mg-acetaminophen 325 1 tablet PO Q8H PRN pain #60 tabs 04/27/20 12/17/24 Rx mg tablet glucagon 3 mg/actuation nasal 3 mg intranasal ONCE #1 ea 08/06/23 12/17/24 Rx spray (Baqsimi) glucose 4 gram chewable tablet 16 g (4 x 4 gram) PO Q15M PRN 08/06/23 12/17/24 Rx hypoglycemia #300 tabs sertraline 100 mg tablet 100 mg PO DAILY 02/26/24 12/17/24 History metoprolol succinate 50 mg 50 mg PO DAILY 04/01/24 12/17/24 History tablet,extended release 24 hr sacubitril 24 mg-valsartan 26 mg 1 tablet PO BID 04/20/24 12/17/24 History tablet (Entresto) finerenone 10 mg tablet (Kerendia) 10 mg PO DAILY #30 tabs 04/23/24 12/17/24 Rx atorvastatin 80 mg tablet See Rx Instructions .Route 05/14/24 12/17/24 Rx .COMPLEX #90 tabs ezetimibe 10 mg tablet 10 mg PO DAILY #90 tabs 08/05/24 12/17/24 Rx levothyroxine 125 mcg tablet See Rx Instructions .Route 10/08/24 12/17/24 Rx .COMPLEX #180 tabs insulin lispro 100 unit/mL 1 sliding scale dose subcut 10/26/24 12/17/24 Rx subcutaneous solution (Humalog USEASDIRECTD insulin pump #100 mL U-100 Insulin) blood-glucose sensor (Dexcom G7 #9 ea 11/02/24 12/17/24 Rx Sensor device) Allergies Allergy/AdvReac Type Severity Reaction Status Date / Time vancomycin Allergy Severe Anaphylactic Verified 12/18/24 02:25 Shock Vital Signs Vital Signs Temp Pulse Resp BP Pulse Ox O2 Del Method 12/18/24 12:00 97.4 F L 120 H 18 133/92 H 98 Room Air 12/18/24 10:13 96 Room Air 12/18/24 10:00 123 H 12/18/24 08:25 122 H 12/18/24 08:00 121 H 12/18/24 08:00 96 Room Air 12/18/24 07:35 97.8 F 123 H 18 121/81 96 12/18/24 06:00 125 H 12/18/24 04:55 124 H 24 H 98 Room Air 12/18/24 04:00 124 H 12/18/24 04:00 97.6 F 124 H 24 H 152/68 H 98 12/18/24 02:00 120 H 12/18/24 00:00 122 H 12/17/24 23:44 97.6 F 123 H 26 H 130/92 H 100 12/17/24 23:05 123 H 26 H 100 Room Air 12/17/24 22:00 123 H 12/17/24 20:00 122 H 12/17/24 19:29 120/74 100 12/17/24 18:49 Room Air 12/17/24 17:57 97.6 F 122 H 22 H 129/76 100 12/17/24 17:26 119 H 18 138/99 H 99 12/17/24 16:32 120 H 20 107/89 97 Exam 2 Narrative: GENERAL APPEARANCE: somewhat ill-appearing male laying in bed in no acute distress HEENT: normocephalic, atraumatic, normal conjunctiva and sclera, nares patient NECK: no lymphadenopathy, thyromegaly, or JVD MOUTH: normal lips, teeth, and gums CARDIOVASCULAR: RRR, normal S1 and S2, no rub detected RESPIRATORY: clear anteriorly; decreased at bases ABDOMEN: soft, nontender, nondistended, positive bowel sounds present EXTREMITIES: no evidence of cyanosis, clubbing, 1+ edema in RLE; s/p left AA NEUROLOGICAL: sleepy but awakes with stimulation; generalized weakness Results Lab Results 12/25/24 05:32 12/25/24 05:32 Lab results: Most recent lab results Calcium 8.3 mg/dL (8.4-10.2) L 12/18/24 04:29 Phosphorus 6.5 mg/dL (2.5-4.5) H 12/18/24 04:29 Magnesium 2.0 mg/dL (1.6-2.3) 12/18/24 04:29 Urine Creatinine 65.2 mg/dL 12/18/24 03:16 Urine Creatinine 65.3 mg/dL 12/18/24 03:16
[2024-12-18] MEDS: diphenhydrAMINE HCL ELIXIR 12.5 MG/5 ML UDC PO ×2 (14:37→20:54)
[2024-12-18] MEDS: HYDROcodone/acetaminophen (*CRX) 5-325 MG TABLET 1 TAB PO (14:56)
[2024-12-18 16:31] LABS: Glucose Point of Care 163 mg/dl (65-105)
--- NOTE | 2024-12-18 18:52 | PM.IMPN ---
Progress Note: A&P Assessment and Plan (1) Acute on chronic kidney failure: Code(s): N17.9 - Acute kidney failure, unspecified; N18.9 - Chronic kidney disease, unspecified Status: Acute (2) Transaminitis: Code(s): R74.01 - Elevation of levels of liver transaminase levels Status: Acute (3) Electrolyte abnormality: Code(s): E87.8 - Other disorders of electrolyte and fluid balance, not elsewhere classified Status: Acute (4) Pneumonia: Code(s): J18.9 - Pneumonia, unspecified organism Status: Acute (5) Heart failure with mildly reduced ejection fraction: Code(s): I50.22 - Chronic systolic (congestive) heart failure Status: Acute (6) Diastolic dysfunction: Code(s): I51.89 - Other ill-defined heart diseases Status: Acute (7) Atrial tachycardia: Code(s): I47.19 - Other supraventricular tachycardia Status: Acute (8) Essential hypertension: Code(s): I10 - Essential (primary) hypertension Status: Acute (9) Peripheral vascular disease: Code(s): I73.9 - Peripheral vascular disease, unspecified Status: Acute (10) Insulin dependent type 2 diabetes mellitus: Code(s): E11.9 - Type 2 diabetes mellitus without complications; Z79.4 - FCI (current) use of insulin Status: Acute (11) Hypothyroidism: Code(s): E03.9 - Hypothyroidism, unspecified Status: Acute (12) Tobacco dependence: Code(s): F17.200 - Nicotine dependence, unspecified, uncomplicated Status: Acute Plan The patient presented to the emergency department for evaluation of generalized weakness over the last couple of weeks following a URI as detailed in HPI. Labs, imaging, EKG, and all reports were personally reviewed. He has an acute on chronic kidney injury which is likely due to a combination of factors including mild dehydration from decreased oral intake and diarrhea in the setting of ARNI and MRA use. He was recently on azithromycin but has not been on any new drugs recently. Bladder scan ordered to rule out urinary retention. Urinalysis another urine studies are pending. He will be judiciously hydrated overnight with close monitoring of volume status, renal function, and electrolytes. Repeat BMP this evening to ensure potassium is coming down. Hold ARNI and MRA for now pending nephrology consult. His abdominal exam is benign and is unclear why his AST, ALT, and alkaline phosphatase are elevated. Bilirubin is well within normal limits. Total CK is a bit elevated and will be monitored. Right upper quadrant ultrasound is pending. Hold statin for now. He is now in a sinus rhythm after receiving diltiazem 10 mg IV x1. Right lower extremity venous Doppler ultrasound and arterial ultrasound has been ordered for evaluation of edema and decreased pulses. He has been started on ceftriaxone and doxycycline for findings of possible pneumonia on chest x-ray. Patient may use his home insulin pump and continuous glucose monitor. Initiate sliding scale insulin, Accu-Cheks, and hypoglycemic protocol. Smoking cessation is imperative and was discussed. Nicotine patch ordered per patient request. His home medications will be reviewed and resumed as appropriate. Findings and treatment plan were discussed with the patient. Questions were solicited and answered to satisfaction. The patient's medical management will be taken over by the hospitalist team in a.m. 12/18 -- Renal function worse today. Urine eos negative. Urine prot/Cr 4.7gm consistent with nephrotic syndrome. Complement normal. Hx of +. Renal US normal. Nephrology consulted. Suspect related to DM. Hold entresto. CXR showing bibasilar infiltrates and patient has rody ill recently with cold and cough symptoms. Continue Rocephin and Doxy. MRSA screen negative. Fluid overload could be related to CHF. Echo today showing EF 25-30%m diastolic dysfunction, and moderate pulm HTN. Check BNP. Hold on diuresis. Will hold the insulin pump and consider starting Lantus tonight. Glucose remains reasonable probably related to poor insulin clearance. Complains of pruritus. Add benadryl prn. LFTs better. RUQ US showing gallstones and mildly dilated CBD. No pain to suggest choledocholithiasis. Follow for now. Lumbar MRI performed but no acute finding seen on limited imaging due to motion artifact. 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 He is complaining of puritus mostly involving his back. Slept poorly last night. He has pain ' all over' but no CP. Denies SOB. No n/v. He has had a cold and cough symtoms for 3 weeks and treated with Z-pack twice. RN concerned patient unable to manage insulin pump. Exam Narrative: AF 97.5 119/76 118 24 100% ra Gen - NARD sitting up in bed Chest - coarse BS. CV - RRR S1/S2. Tele showing no significant dysrhythmia Abd - Soft, obese, NT, abd wall and flank edema Ext - Left AMA. indurated pitting RLE pedal edema Psych - Nml mood and affect Neuro - AOx3 Skin - Warm and dry. multiple wounds bilateral hands in varius stages of healing. erythema RLE, lower back. Objective Data Vital Signs Vital Signs: Vital Signs - 24 hr 12/17/24 19:29 12/17/24 20:00 12/17/24 22:00 Temperature Pulse Rate 122 H 123 H Respiratory Rate Blood Pressure 120/74 Pulse Oximetry 100 Oxygen Delivery 12/17/24 23:05 12/17/24 23:44 12/18/24 00:00 Temperature 97.6 F Pulse Rate 123 H 123 H 122 H Respiratory Rate 26 H 26 H Blood Pressure 130/92 H Pulse Oximetry 100 100 Oxygen Delivery Room Air 12/18/24 02:00 12/18/24 04:00 12/18/24 04:00 Temperature 97.6 F Pulse Rate 120 H 124 H 124 H Respiratory Rate 24 H Blood Pressure 152/68 H Pulse Oximetry 98 Oxygen Delivery 12/18/24 04:55 12/18/24 06:00 12/18/24 07:35 Temperature 97.8 F Pulse Rate 124 H 125 H 123 H Respiratory Rate 24 H 18 Blood Pressure 121/81 Pulse Oximetry 98 96 Oxygen Delivery Room Air 12/18/24 08:00 12/18/24 08:00 12/18/24 08:25 Temperature Pulse Rate 121 H 122 H Respiratory Rate Blood Pressure Pulse Oximetry 96 Oxygen Delivery Room Air 12/18/24 10:00 12/18/24 10:13 12/18/24 12:00 Temperature Pulse Rate 123 H Respiratory Rate Blood Pressure Pulse Oximetry 96 Oxygen Delivery Room Air Room Air 12/18/24 12:00 12/18/24 12:00 12/18/24 14:00 Temperature 97.4 F L Pulse Rate 120 H 122 H 122 H Respiratory Rate 18 Blood Pressure 133/92 H Pulse Oximetry 98 Oxygen Delivery 12/18/24 16:00 12/18/24 16:00 12/18/24 16:00 Temperature 97.5 F L Pulse Rate 121 H 120 H Respiratory Rate 24 H Blood Pressure 119/76 Pulse Oximetry 100 100 Oxygen Delivery Room Air 12/18/24 18:00 Temperature Pulse Rate 118 H Respiratory Rate Blood Pressure Pulse Oximetry Oxygen Delivery Intake/Output Intake/Output: Intake & Output 12/15/24 12/16/24 12/17/24 12/18/24 23:59 23:59 23:59 23:59 Intake Total 1050 3155 Output Total 2280 Balance 1050 875 Meds/Results Medications: Active Medications Generic Name Dose Route Start Last Admin Trade Name Freq PRN Reason Stop Dose Admin Acetaminophen 650 mg 12/17/24 16:18 Acetaminophen 325 Mg Tablet PO Q4H PRN Mild Pain (1-3) or Fever Hydrocodone Bitart/Acetaminophen 1 tab 12/17/24 19:37 12/18/24 14:56 Hydrocodone/Acetaminophen (*Crx) 5-325 Mg Tablet PO 1 tab Q8H PRN Administration pain 4-6 Dextrose 12.5 gm 12/17/24 22:39 Dextrose 50% 25 Gm/50 Ml Syringe IV PUSH PRN PRN Hypoglycemia Protocol Diphenhydramine HCl 12.5 mg 12/18/24 14:23 12/18/24 14:37 Diphenhydramine Hcl Elixir 12.5 Mg/5 Ml Udc PO 12.5 mg Q6H PRN Administration Itching Doxycycline Hyclate 100 mg 12/17/24 22:45 12/18/24 08:25 Doxycycline Hyclate 100 Mg Tablet PO 100 mg Q12HR REGINA Administration Ezetimibe 10 mg 12/18/24 09:00 12/18/24 08:25 Ezetimibe 10 Mg Tablet PO 10 mg DAILY REGINA Administration Glucagon 1 mg 12/17/24 22:39 Glucagon For Inj 1 Mg Vial IM PRN PRN Hypoglycemia Protocol Glucose 15 gm 12/17/24 22:39 Glucose Oral Gel 15 Gm Of Glucse In 37.5 Gm Tube PO PRN PRN Hypoglycemia Protocol Heparin Sodium (Porcine) 5,000 units 12/18/24 09:00 12/18/24 08:25 Heparin Sodium 5,000 Units/Ml Vial SUB-Q 5,000 units Q12HR REGINA Administration Sodium Chloride 1,000 mls @ 125 mls/hr 12/17/24 16:20 12/18/24 17:26 Normal Saline Iv IV CONT Not Given .Q8H REGINA Dextrose 1,000 mls @ 100 mls/hr 12/17/24 22:39 Dextrose 5% 1,000 Ml IVPB PRN PRN Hypoglycemia Protocol Ceftriaxone Sodium 1 gm in 50 mls @ 100 mls/hr 12/17/24 23:00 12/17/24 23:31 Rocephin 1 Gm/Ns 50 Ml IVPB Infused Q24H REGINA Infusion Insulin Aspart 2 - 5 units 12/18/24 11:30 12/18/24 16:33 Insulin Aspart (*Bkc) 100 Units/Ml SUB-Q Not Given ACHS [facility] Protocol Levothyroxine Sodium 250 mcg 12/18/24 06:30 12/18/24 06:58 Levothyroxine Sodium 125 Mcg Tablet BY MOUTH 250 mcg DAILY@0630 REGINA Administration Metoprolol Succinate 50 mg 12/18/24 09:00 12/18/24 08:25 Metoprolol Succinate Ext Rel 50 Mg Tabcr PO 50 mg DAILY REGINA Administration Morphine Sulfate 2 mg 12/17/24 16:18 12/18/24 07:00 Morphine Sulfate (*Crx) 2 Mg/Ml Inj IV PUSH 2 mg Q2H PRN Administration Pain Rated 7-10 Nicotine 1 patch 12/17/24 22:45 12/18/24 08:24 Nicotine (*Pbkc) 21 Mg Patch TRANSDERM 1 patch DAILY REGINA Administration Ondansetron HCl 4 mg 12/17/24 16:18 12/18/24 07:01 Ondansetron Inj 4 Mg/2 Ml Vial IV PUSH 4 mg Q4H PRN Administration Nausea Sacubitril/Valsartan 1 tab 12/17/24 21:00 12/18/24 08:25 Sacubitril/Valsartan 24-26 Mg Tablet PO 1 tab Q12HR REGINA Administration Sertraline HCl 100 mg 12/18/24 09:00 12/18/24 08:24 Sertraline Hcl 50 Mg Tablet PO 100 mg DAILY REGINA Administration Radiology Results: ITS Impressions Chest X-Ray 12/17/24 14:01 Impression: 1: Bibasilar infiltrates, atelectasis versus pneumonia. 2: Small pleural effusions. Lumbar Spine X-Ray 12/17/24 15:44 IMPRESSION: Anterior loss of volume of L1 which is most likely chronic. MRI evaluation advised. Otherwise, No acute osseous abnormality lumbar spine. Degenerative disc disease at the level of L4-L5. Venous Doppler Study 12/18/24 13:13 IMPRESSION: 1. No deep venous thrombosis. Abdomen Ultrasound 12/18/24 13:18 IMPRESSION: 1. Cholelithiasis. No evidence of acute cholecystitis. 2. Mildly dilated common duct. Renal Ultrasound 12/18/24 13:21 IMPRESSION: 1. Normal kidney sizes. No hydronephrosis. Lumbar Spine MRI 12/18/24 15:23 IMPRESSION: Limited examination secondary to motion artifact. No abnormal signal intensity or contrast enhancement is identified within the vertebral body of L1 to suggest acute traumatic injury. Within the visualized intervertebral disc spaces, moderate degenerative disease is noted, as detailed above. Labs Labs: Laboratory Results - last 24 hr 12/17/24 12/17/24 12/17/24 18:31 20:11 23:07 WBC RBC Hgb Hct MCV MCH MCHC RDW Plt Count MPV Immature Gran % (Auto) Neut % (Auto) Lymph % (Auto) Steele % (Auto) Eos % (Auto) Baso % (Auto) Lymph # (Auto) Steele # (Auto) Eos # (Auto) Baso # (Auto) Abs Immat Gran (auto) Absolute Neuts (auto) Absolute Nucleated RBC Nucleated RBC % ESR 64 H Sodium Potassium Chloride Carbon Dioxide Anion Gap BUN Creatinine Estim Creat Clear Calc Estimated GFR Glucose POC Capillary Glucose 201 H Calcium Phosphorus Magnesium Total Bilirubin Direct Bilirubin AST ALT Alkaline Phosphatase Total Creatine Kinase Total Protein Albumin TSH (Reflex) Free T4 Total T3 Urine Color Urine Appearance Urine pH Ur Specific [place] Urine Protein Urine Glucose (UA) Urine Ketones Ur Blood (Man) Urine Nitrate Urine Bilirubin Urine Urobilinogen Add Ur Microanalysis Leukocyte Esterase Rfl Urine RBC Urine WBC Ur Squamous Epith Cells Urine Bacteria Urine Casts Hyaline Casts Granular Casts Urine Mucus Urine Eosinophils U Random Total Protein Ur Random Sodium Ur Random Potassium Ur Random Urea Urine Creatinine Protein/Creat Ratio 2 Nasal MRSA (PCR) Acetaminophen < 10 L Complement C3 90 Complement C4 24.6 Hepatitis A IgM Ab Negative Hep Bs Antigen Negative Hep B Core IgM Ab Negative Hepatitis C Ab Screen Negative 12/17/24 12/18/24 12/18/24 23:22 02:08 03:16 WBC RBC Hgb Hct MCV MCH MCHC RDW Plt Count MPV Immature Gran % (Auto) Neut % (Auto) Lymph % (Auto) Steele % (Auto) Eos % (Auto) Baso % (Auto) Lymph # (Auto) Steele # (Auto) Eos # (Auto) Baso # (Auto) Abs Immat Gran (auto) Absolute Neuts (auto) Absolute Nucleated RBC Nucleated RBC % ESR Sodium Potassium Chloride Carbon Dioxide Anion Gap BUN Creatinine Estim Creat Clear Calc Estimated GFR Glucose POC Capillary Glucose 212 H Calcium Phosphorus Magnesium Total Bilirubin Direct Bilirubin AST ALT Alkaline Phosphatase Total Creatine Kinase Total Protein Albumin TSH (Reflex) Free T4 Total T3 Urine Color Yellow Urine Appearance Cloudy H Urine pH 5.0 Ur Specific [place] 1.013 Urine Protein 3+ H Urine Glucose (UA) 1+ H Urine Ketones Negative Ur Blood (Man) Trace Urine Nitrate Negative Urine Bilirubin Negative Urine Urobilinogen 0.2 Add Ur Microanalysis Reviewed Leukocyte Esterase Rfl Trace H Urine RBC 0-2 Urine WBC 11-20 H Ur Squamous Epith Cells None seen Urine Bacteria None seen Urine Casts 11-20 Hyaline Casts Present Granular Casts Present Urine Mucus Present Urine Eosinophils None seen U Random Total Protein 305 Ur Random Sodium 42 Ur Random Potassium 28.3 Ur Random Urea Urine Creatinine 65.3 Protein/Creat Ratio 2 Nasal MRSA (PCR) Not detected Acetaminophen Complement C3 Complement C4 Hepatitis A IgM Ab Hep Bs Antigen Hep B Core IgM Ab Hepatitis C Ab Screen 12/18/24 12/18/24 12/18/24 03:16 04:29 07:01 WBC 10.5 H RBC 4.63 Hgb 11.7 L Hct 38.1 L MCV 82.3 MCH 25.3 L MCHC 30.7 L RDW 18.0 H Plt Count 346 MPV 9.1 Immature Gran % (Auto) 0.6 H Neut % (Auto) 71.2 Lymph % (Auto) 16.1 L Steele % (Auto) 5.7 Eos % (Auto) 5.6 H Baso % (Auto) 0.8 Lymph # (Auto) 1.69 Steele # (Auto) 0.6 Eos # (Auto) 0.6 H Baso # (Auto) 0.1 Abs Immat Gran (auto) 0.06 H Absolute Neuts (auto) 7.5 H Absolute Nucleated RBC 0.030 H Nucleated RBC % 0.3 H ESR Sodium 134 L Potassium 4.7 Chloride 96 L Carbon Dioxide 27 Anion Gap 11 BUN 87 H Creatinine 4.48 H Estim Creat Clear Calc 20 Estimated GFR 13 L Glucose 149 H POC Capillary Glucose 139 H Calcium 8.3 L Phosphorus 6.5 H Magnesium 2.0 Total Bilirubin 0.7 Direct Bilirubin 0.0 AST 135 H ALT 277 H Alkaline Phosphatase 318 H Total Creatine Kinase 353 H Total Protein 6.0 L Albumin 3.1 L TSH (Reflex) 46.400 H Free T4 0.96 Total T3 0.49 L Urine Color Urine Appearance Urine pH Ur Specific [place] Urine Protein Urine Glucose (UA) Urine Ketones Ur Blood (Man) Urine Nitrate Urine Bilirubin Urine Urobilinogen Add Ur Microanalysis Leukocyte Esterase Rfl Urine RBC Urine WBC Ur Squamous Epith Cells Urine Bacteria Urine Casts Hyaline Casts Granular Casts Urine Mucus Urine Eosinophils U Random Total Protein Ur Random Sodium Ur Random Potassium Ur Random Urea Urine Creatinine 65.2 Protein/Creat Ratio 2 4.67 H Nasal MRSA (PCR) Acetaminophen Complement C3 Complement C4 Hepatitis A IgM Ab Hep Bs Antigen Hep B Core IgM Ab Hepatitis C Ab Screen 12/18/24 12/18/24 12/18/24 07:32 11:04 12:19 WBC RBC Hgb Hct MCV MCH MCHC RDW Plt Count MPV Immature Gran % (Auto) Neut % (Auto) Lymph % (Auto) Steele % (Auto) Eos % (Auto) Baso % (Auto) Lymph # (Auto) Steele # (Auto) Eos # (Auto) Baso # (Auto) Abs Immat Gran (auto) Absolute Neuts (auto) Absolute Nucleated RBC Nucleated RBC % ESR Sodium Potassium Chloride Carbon Dioxide Anion Gap BUN Creatinine Estim Creat Clear Calc Estimated GFR Glucose POC Capillary Glucose 147 H 154 H Calcium Phosphorus Magnesium Total Bilirubin Direct Bilirubin AST ALT Alkaline Phosphatase Total Creatine Kinase Total Protein Albumin TSH (Reflex) Free T4 Total T3 Urine Color Urine Appearance Urine pH Ur Specific [place] Urine Protein Urine Glucose (UA) Urine Ketones Ur Blood (Man) Urine Nitrate Urine Bilirubin Urine Urobilinogen Add Ur Microanalysis Leukocyte Esterase Rfl Urine RBC Urine WBC Ur Squamous Epith Cells Urine Bacteria Urine Casts Hyaline Casts Granular Casts Urine Mucus Urine Eosinophils None seen U Random Total Protein Ur Random Sodium Ur Random Potassium Ur Random Urea 377 Urine Creatinine Protein/Creat Ratio 2 Nasal MRSA (PCR) Acetaminophen Complement C3 Complement C4 Hepatitis A IgM Ab Hep Bs Antigen Hep B Core IgM Ab Hepatitis C Ab Screen 12/18/24 16:24 WBC RBC Hgb Hct MCV MCH MCHC RDW Plt Count MPV Immature Gran % (Auto) Neut % (Auto) Lymph % (Auto) Steele % (Auto) Eos % (Auto) Baso % (Auto) Lymph # (Auto) Steele # (Auto) Eos # (Auto) Baso # (Auto) Abs Immat Gran (auto) Absolute Neuts (auto) Absolute Nucleated RBC Nucleated RBC % ESR Sodium Potassium Chloride Carbon Dioxide Anion Gap BUN Creatinine Estim Creat Clear Calc Estimated GFR Glucose POC Capillary Glucose 163 H Calcium Phosphorus Magnesium Total Bilirubin Direct Bilirubin AST ALT Alkaline Phosphatase Total Creatine Kinase Total Protein Albumin TSH (Reflex) Free T4 Total T3 Urine Color Urine Appearance Urine pH Ur Specific [place] Urine Protein Urine Glucose (UA) Urine Ketones Ur Blood (Man) Urine Nitrate Urine Bilirubin Urine Urobilinogen Add Ur Microanalysis Leukocyte Esterase Rfl Urine RBC Urine WBC Ur Squamous Epith Cells Urine Bacteria Urine Casts Hyaline Casts Granular Casts Urine Mucus Urine Eosinophils U Random Total Protein Ur Random Sodium Ur Random Potassium Ur Random Urea Urine Creatinine Protein/Creat Ratio 2 Nasal MRSA (PCR) Acetaminophen Complement C3 Complement C4 Hepatitis A IgM Ab Hep Bs Antigen Hep B Core IgM Ab Hepatitis C Ab Screen
[2024-12-18] MEDS: ACETAMINOPHEN 325 MG TABLET 650 MG PO (20:54)
[2024-12-18 21:10] LABS: Glucose Point of Care 166 mg/dl (65-105)
--- NOTE | 2024-12-18 22:41 | ECHO_ITS ---
Patient Info Name: Jose Mckinney Age: 64 years : 1960 Gender: Male Ht: 74 in Wt: 237 lbs BSA: 2.39 m2 HR: 122 bpm BP: 152 / 68 mmHg Heart Rhythm: Atrial Fibrillation Technical Quality: Fair Exam Date: 12/18/2024 8:13 AM Exam Location: Echo Lab Patient Status: Inpatient Admit Date: 12/17/2024 Staff Ordering Physician: Stephanie Ceron PA-C Steel Layout Worker: Pretty Banks RDCS Attending Provider: Agustin Butler MD Referring Physician: Osmany LEWIS; Exam Type: CA echo doppler color flow Study Info Indications - Atrial tachycardia Complete two-dimensional, color flow and Doppler transthoracic echocardiogram is performed with contrast to opacify the left ventricle and to improve the deliniation of the left ventricle endocardial borders. Summary 1. Left ventricular chamber dimension is severely enlarged. 2. Left ventricular systolic function is severely reduced, estimated at 25-30%. 3. There is no increased left ventricular wall thickness. 4. The left ventricular diastolic function is abnormal. 5. Left atrial chamber dimension is moderately enlarged. 6. There is mild mitral valve regurgitation. 7. There is mild tricuspid valve regurgitation. 8. Moderate pulmonary hypertension, estimated pulmonary arterial systolic pressure is 45 mmHg. 9. There is mild pulmonic regurgitation. 10. There is small pericardial effusion. 11. The aortic root size at the sinus of Valsalva is mildly dilated. Left Ventricle Left ventricular chamber dimension is severely enlarged. Left ventricular systolic function is severely reduced, estimated at 25-30%. There is no increased left ventricular wall thickness. The left ventricular diastolic function is abnormal. Right Ventricle Right ventricular chamber dimension is normal. Right ventricular systolic function is normal. Left Atria Left atrial chamber dimension is moderately enlarged. Right Atria Right atrial chamber dimension is normal. Atrial Septum Intact interatrial septum visualized by color flow imaging. Aortic Valve The aortic valve is trileaflet. There is mild aortic valve sclerosis. There is no aortic valve stenosis. There is trace aortic valve regurgitation. Pulmonic Valve The pulmonic valve is normal. There is no pulmonic valve stenosis. There is mild pulmonic regurgitation. Mitral Valve The mitral valve has normal leaflets. There is no mitral valve stenosis. There is mild mitral valve regurgitation. Tricuspid Valve The tricuspid valve leaflets are normal. There is no significant tricuspid valve stenosis. There is mild tricuspid valve regurgitation. Moderate pulmonary hypertension, estimated pulmonary arterial systolic pressure is 45 mmHg. Pericardium/Pleural The pericardium appears normal. There is small pericardial effusion. Inferior Vena Cava Normal inferior vena cava with <50% collapse upon inspiration consistent with elevated right atrial pressure, 10 mmHg. Aorta The aortic root size at the sinus of Valsalva is mildly dilated. The prox ascending aorta size is normal. Left Ventricular Outflow Tract Name Value Normal LVOT 2D LVOT Diameter 2.5 cm LVOT Doppler LVOT Peak Gradient 2 mmHg LVOT Mean Gradient 1 mmHg LVOT VTI 11 cm LVOT VTI/AV VTI Ratio 0.7 LVOT Stroke Volume 53 ml LVOT CO 6.0 l/min LVOT CI 2.6 l/min/m2 Pulmonic Valve Name Value Normal RVOT Doppler RVOT Peak Gradient 1 mmHg PV Doppler PV Peak Gradient 3 mmHg Mitral Valve Name Value Normal MV Doppler MV Decel Bowman 1,129 cm/s2 MV PHT 27 ms MV Area (PHT) 8.0 cm2 4.0-5.0 MV Diastolic Function MV E Peak Velocity 107 cm/s MV A Peak Velocity 0 cm/s MV E/A 389.7 MV Decel Time 94 ms MV Annular TDI MV E/e' (Septal) 27.7 <=8.0 MV E/e' (Lateral) 10.4 <=8.0 MV E/e' (Average) 19.1 Tricuspid Valve Name Value Normal TV Regurgitation Doppler TR Peak Velocity 297 cm/s TR Peak Gradient 30 mmHg Estimated PAP/RSVP RA Pressure 10 mmHg <=5 PA Systolic Pressure 45 mmHg <36 RV Systolic Pressure 45 mmHg <36 Aortic Valve Name Value Normal AV Doppler AV Peak Velocity 91 cm/s AV Peak Gradient 3 mmHg AV Mean Gradient 2 mmHg AV VTI 16 cm AV Area (Cont Eq VTI) 3.4 cm2 >=3.0 AV Area (Cont Eq August) 3.8 cm2 AV Regurgitation 2D LVOT Area 4.8 cm2 Ventricles Name Value Normal LV Dimensions 2D/MM IVS Diastolic Thickness (2D) 0.9 cm 0.6-1.0 LVID Diastole (2D) 7.3 cm 4.2-5.8 LVIW Diastolic Thickness (2D) 1.0 cm 0.6-1.0 LVID Systole (2D) 6.6 cm 2.5-4.0 LVOT Diameter 2.5 cm LV Mass (2D Cubed) 329.79 g 88.00-224.00 LV Mass Index (2D Cubed) 138 g/m2 49-115 Relative Wall Thickness (2D) 0.27 LV Fractional Shortening/Ejection Fraction 2D/MM LV Fractional Shortening (2D) 9 % 25-43 LV EF (2D Teicholz) 20 % 52-72 LV Diastolic Volume (4C MOD) 425 ml LV EF (4C MOD) 28 % LV Diastolic Volume (2C MOD) 435 ml LV EF (2C MOD) 33 % LV Diastolic Volume (BP MOD) 439 ml 62-150 LV Diastolic Volume Index (BP MOD) 183 ml/m2 34-74 LV Systolic Volume (BP MOD) 305 ml 21-61 LV Systolic Volume Index (BP MOD) 127 ml/m2 11-31 LV EF (BP MOD) 31 % 52-72 LV Diastolic Length (4C) 10.6 cm LV Systolic Length (4C) 10.0 cm LV Stroke Volume (4C MOD) 121 ml Report Signatures
[2024-12-18] MEDS: CALCIUM CARBONATE (TUMS) 500 MG (200 MG ELEMENTAL) PO (22:45)
[2024-12-19] VITALS (11 sets, daily range): BP systolic 90–109; BP diastolic 58–73; PULSE 108–117; RESP 16–18; TEMP 35.6–36.8; O2SAT 95–100
[2024-12-19] MEDS: SODIUM CHLORIDE 0.9% IV 1,000 ML 125 ML IV CONT ×3 (01:15→21:32)
[2024-12-19] MEDS: HYDROcodone/acetaminophen (*CRX) 5-325 MG TABLET 1 TAB PO ×2 (01:21→15:50)
[2024-12-19 03:28] LABS: Anti Streptolysin O Screen 24 IU/mL (<200)
[2024-12-19 05:12] LABS: Basophils Absolute Auto 0.1 K/mm3 (0.0-0.1); Basophils Percent Auto 0.8 % (0.2-1.2); Eosinophils Absolute Auto 0.4 K/mm3 (0-0.3); Eosinophils Percent Auto 4.6 % (0-4.4); Hematocrit 38.6 % (42.0-52.0); Hemoglobin 11.6 g/dL (14.0-18.0); Immature Granulocyte Absolute 0.06 K/mm3 (0.00-0.031); Immature Granulocyte Percent A 0.6 % (0-0.5); Lymphocytes Absolute Auto 1.12 K/mm3 (0.9-3.2); Lymphocytes Percent Auto 11.8 % (18.3-44.2); Mean Corpuscular HGB Conc 30.1 g/dl (32-36); Mean Corpuscular Hemoglobin 25.1 pg (26-34); Mean Corpuscular Volume 83.5 fl (80-100); Mean Platelet Volume 8.9 fl (7.4-10.4); Monocytes Absolute Auto 0.5 K/mm3 (0.1-0.6); Monocytes Percent Auto 4.9 % (2.6-8.5); Neutrophils Absolute Auto 7.3 K/mm3 (1.3-6.7); Neutrophils Percent Auto 77.3 % (45.5-73.1); Nucleated Red Blood Cells Perc 1.4 % (0.0-0.2); Platelet Count Result 326 k/mm3 (150-375); Red Blood Count 4.62 M/mm3 (4.6-6.20); Red Cell Distribution Width 17.8 % (11.5-14.5); White Blood Count 9.5 K/mm3 (4.5-10.0)
[2024-12-19 05:29] LABS: Alanine Aminotransferase 201 U/L (6-50); Albumin Level 2.9 g/dL (3.5-5.1); Alkaline Phosphatase 271 U/L (38-126); Anion Gap 11 mmol/L (4-12); Aspartate Amino Transferase 99 U/L (17-59); Bilirubin,Total 0.6 mg/dL (0.2-1.3); Blood Urea Nitrogen 85 mg/dL (9-20); Calcium 7.9 mg/dL (8.4-10.2); Carbon Dioxide 22 mmol/L (22-30); Chloride 98 mmol/L (98-107); Creatine Kinase 262 U/L (55-170); Estimated CRCL calculation 23 ml/min; Estimated Glomerular Filt Rate 15; Glucose 174 mg/dL (65-110); Magnesium 1.9 mg/dL (1.6-2.3); Phosphorus 6.5 mg/dL (2.5-4.5); Potassium 5.5 mmol/L (3.4-5.0); Sodium 131 mmol/L (137-145)
[2024-12-19 05:37] LABS: NT Pro B Type Natriuretic Pept > 30000 pg/mL (19.9-100)
[2024-12-19] MEDS: LEVOTHYROXINE SODIUM 125 MCG TABLET 250 MCG BY MOUTH (06:37)
[2024-12-19] MEDS: ONDANSETRON INJ 4 MG/2 ML VIAL IV PUSH ×3 (06:38→21:24)
[2024-12-19 08:23] LABS: Glucose Point of Care 144 mg/dl (65-105)
[2024-12-19] MEDS: DOXYCYCLINE HYCLATE 100 MG TABLET PO ×2 (09:01→21:24)
[2024-12-19] MEDS: SERTRALINE HCL 50 MG TABLET 100 MG PO (09:01)
[2024-12-19] MEDS: NICOTINE (*PBKC) 21 MG PATCH 1 PATCH TRANSDERM (09:01)
[2024-12-19] MEDS: EZETIMIBE 10 MG TABLET PO (09:01)
[2024-12-19] MEDS: METOPROLOL SUCCINATE EXT REL 50 MG TABCR PO (09:01)
[2024-12-19] MEDS: HEPARIN SODIUM 5,000 UNITS/ML VIAL 5000 UNITS SUB-Q ×2 (09:02→21:24)
[2024-12-19] MEDS: SODIUM ZIRCONIUM CYCLOSILICATE 10 GM POWD.PACK PO (09:02)
[2024-12-19 12:31] LABS: Glucose Point of Care 158 mg/dl (65-105)
--- NOTE | 2024-12-19 13:02 | P.PNNP_ITS ---
Progress Note: A&P Assessment and Plan (1) Acute kidney injury: Code(s): N17.9 - Acute kidney failure, unspecified Status: Acute Assessment and Plan: * as noted on admission * evaluation to date noted: * renal u/s normal * urine eosinophils negative * nephrotic range proteinuria * prerenal urine electrolytes * CPK mildly elevated (but not enought to affect kidney function) * further serologies pending * outpatient evaluation noted - normal complements but hematuria with positive * remains at risk for COMMUNITY NURSE/dialysis * attempt renal biopsy if able * follow trend of repeat labs and UOP (2) Stage 3b chronic kidney disease: Code(s): N18.32 - Chronic kidney disease, stage 3b Status: Chronic Assessment and Plan: * baseline creatinine runs around 1.7 - 2.3mg/dl * suspected to be secondary to diabetes and hypertension * HOWEVER, positive noted in association with hematuria and nephrotic range proteinuria as well as rise in creatinine to 2.76mg/dl noted on outpatient testing in early Oct 2024 * renal biopsy recommended during office visit with Dr. Britt at that time (but apparently was never done) (3) Pneumonia: Code(s): J18.9 - Pneumonia, unspecified organism Status: Acute Assessment and Plan: * admission CXR with bibasilar infiltrates * mildly elevated WBC but no fevers * on empiric antibiotics * follow culture data (4) Heart failure with mildly reduced ejection fraction: Code(s): I50.22 - Chronic systolic (congestive) heart failure Status: Acute Assessment and Plan: * known history * repeat Echo (12/18) noted: * severely reduced systolic function with EF 25-30% * diastolic dysfunction * mild valvular disease * moderate pulmonary hypertension * CXR with cardiomegaly, bibasilar infiltrates and small pleural effusions * Entresto and diuretics on hold given #1 * follow daily weights and volume status closely * Cardiology following (5) Transaminitis: Code(s): R74.01 - Elevation of levels of liver transaminase levels Status: Deleted Assessment and Plan: * normal earlier in November 2024 * noted recently * hepatitis panel negative * abd US showing cholelithiasis and mildly dilated CBD; liver is normal in appearance * holding statin * Gastroenterology consulted * follow trend (6) Anemia: Code(s): D64.9 - Anemia, unspecified Status: Acute Assessment and Plan: * related to ELEANOR, CKD, and acute illness * follow trend of H/H * no need for KALI at this time (7) Peripheral vascular disease: Code(s): I73.9 - Peripheral vascular disease, unspecified Status: Acute Assessment and Plan: * known history * on zetia but statin on hold given elevated LFTs * complicated by ongoing smoking * arterial dopplers noted (8) Diabetes mellitus type 2 with complications: Code(s): E11.8 - Type 2 diabetes mellitus with unspecified complications Status: Chronic Assessment and Plan: * follow accu-cheks * glycemic control per hospitalist Will continue to follow. L Subjective Date/time seen: 12/19/24 13:02 Interval history: Follow-up for acute kidney injury/acute renal failure on chronic kidney disease. Renal function/creatinine continues to worsen at this time; fluctuating urine output noted and some fluctuating mental status noted per nursing as well; issues with pruritis/itching since admission seems a bit better. Exam 2 Narrative: General: elderly male in NAD Heart: normal S1 and S2; no rub Lungs: coarse breath sounds Abdomen: obese but soft, nontender, nondistended, positive bowel sounds Extremities: no cyanosis or clubbing; 1 - 2+ edema in RLE; s/p left AKA Skin: warm and dry; healing bilateral hand excoriations Objective Data Vital Signs Vital Signs: Vital Signs Temp Pulse Resp BP Pulse Ox O2 Del Method 12/19/24 12:00 97.7 F 109 H 16 108/68 100 12/19/24 12:00 99 Room Air 12/19/24 10:00 113 H 12/19/24 09:01 109 H 12/19/24 08:00 111 H 12/19/24 08:00 98 Room Air 12/19/24 08:00 97.8 F 111 H 16 92/63 L 98 12/19/24 06:00 114 H 12/19/24 04:00 114 H 12/19/24 04:00 97.7 F 115 H 18 106/68 100 12/19/24 04:00 Room Air 12/19/24 02:00 116 H 12/19/24 00:00 116 H 12/19/24 00:00 Room Air 12/19/24 00:00 97.8 F 117 H 18 109/73 100 12/18/24 22:00 117 H 12/18/24 20:00 116 H 12/18/24 20:00 Room Air 12/18/24 20:00 97.8 F 115 H 18 109/41 L 100 12/18/24 18:00 118 H 12/18/24 16:00 120 H 12/18/24 16:00 100 Room Air 12/18/24 16:00 97.5 F L 121 H 24 H 119/76 100 Intake/Output Intake/Output: Intake & Output 12/16/24 12/17/24 12/18/24 12/19/24 23:59 23:59 23:59 23:59 Intake Total 1050 3205 2360 Output Total 2280 1150 Balance 2606 767 6747 Meds/Results Medications: Active Medications Generic Name Dose Route Start Last Admin Trade Name Freq PRN Reason Stop Dose Admin Acetaminophen 650 mg 12/17/24 16:18 12/18/24 20:54 Acetaminophen 325 Mg Tablet PO 650 mg Q4H PRN Administration Mild Pain (1-3) or Fever Hydrocodone Bitart/Acetaminophen 1 tab 12/17/24 19:37 12/19/24 01:21 Hydrocodone/Acetaminophen (*Crx) 5-325 Mg Tablet PO 1 tab Q8H PRN Administration pain 4-6 Calcium Carbonate 200 mg 12/18/24 22:39 Calcium Carbonate (Tums) 500 Mg (200 Mg Elemental) PO Q6H PRN Indigestion Dextrose 12.5 gm 12/17/24 22:39 Dextrose 50% 25 Gm/50 Ml Syringe IV PUSH PRN PRN Hypoglycemia Protocol Diphenhydramine HCl 12.5 mg 12/18/24 14:23 12/18/24 20:54 Diphenhydramine Hcl Elixir 12.5 Mg/5 Ml Udc PO 12.5 mg Q6H PRN Administration Itching Doxycycline Hyclate 100 mg 12/17/24 22:45 12/19/24 09:01 Doxycycline Hyclate 100 Mg Tablet PO 100 mg Q12HR REGINA Administration Ezetimibe 10 mg 12/18/24 09:00 12/19/24 09:01 Ezetimibe 10 Mg Tablet PO 10 mg DAILY REGINA Administration Glucagon 1 mg 12/17/24 22:39 Glucagon For Inj 1 Mg Vial IM PRN PRN Hypoglycemia Protocol Glucose 15 gm 12/17/24 22:39 Glucose Oral Gel 15 Gm Of Glucse In 37.5 Gm Tube PO PRN PRN Hypoglycemia Protocol Heparin Sodium (Porcine) 5,000 units 12/18/24 09:00 12/19/24 09:02 Heparin Sodium 5,000 Units/Ml Vial SUB-Q 5,000 units Q12HR REGINA Administration Sodium Chloride 1,000 mls @ 75 mls/hr 12/17/24 16:20 12/19/24 10:02 Normal Saline Iv IV CONT 125 mls/hr .[id number] REGINA Administration Dextrose 1,000 mls @ 100 mls/hr 12/17/24 22:39 Dextrose 5% 1,000 Ml IVPB PRN PRN Hypoglycemia Protocol Ceftriaxone Sodium 1 gm in 50 mls @ 100 mls/hr 12/17/24 23:00 12/18/24 23:15 Rocephin 1 Gm/Ns 50 Ml IVPB Infused Q24H REGINA Infusion Insulin Aspart 2 - 5 units 12/18/24 11:30 12/19/24 06:37 Insulin Aspart (*Bkc) 100 Units/Ml SUB-Q Not Given ACHS REGINA Protocol Levothyroxine Sodium 250 mcg 12/18/24 06:30 12/19/24 06:37 Levothyroxine Sodium 125 Mcg Tablet BY MOUTH 250 mcg DAILY@0630 REGINA Administration Metoprolol Succinate 50 mg 12/18/24 09:00 12/19/24 09:01 Metoprolol Succinate Ext Rel 50 Mg Tabcr PO 50 mg DAILY REGINA Administration Morphine Sulfate 2 mg 12/17/24 16:18 12/18/24 07:00 Morphine Sulfate (*Crx) 2 Mg/Ml Inj IV PUSH 2 mg Q2H PRN Administration Pain Rated 7-10 Nicotine 1 patch 12/17/24 22:45 12/19/24 09:01 Nicotine (*Pbkc) 21 Mg Patch TRANSDERM 1 patch DAILY REGINA Administration Ondansetron HCl 4 mg 12/17/24 16:18 12/19/24 06:38 Ondansetron Inj 4 Mg/2 Ml Vial IV PUSH 4 mg Q4H PRN Administration Nausea Sacubitril/Valsartan 1 tab 12/17/24 21:00 12/18/24 08:25 Sacubitril/Valsartan 24-26 Mg Tablet PO 1 tab Q12HR REGINA Administration Sertraline HCl 100 mg 12/18/24 09:00 12/19/24 09:01 Sertraline Hcl 50 Mg Tablet PO 100 mg DAILY REGINA Administration Radiology Results: ITS Impressions Chest X-Ray 12/17/24 14:01 Impression: 1: Bibasilar infiltrates, atelectasis versus pneumonia. 2: Small pleural effusions. Lumbar Spine X-Ray 12/17/24 15:44 IMPRESSION: Anterior loss of volume of L1 which is most likely chronic. MRI evaluation advised. Otherwise, No acute osseous abnormality lumbar spine. Degenerative disc disease at the level of L4-L5. Venous Doppler Study 12/18/24 13:13 IMPRESSION: 1. No deep venous thrombosis. Abdomen Ultrasound 12/18/24 13:18 IMPRESSION: 1. Cholelithiasis. No evidence of acute cholecystitis. 2. Mildly dilated common duct. Renal Ultrasound 12/18/24 13:21 IMPRESSION: 1. Normal kidney sizes. No hydronephrosis. Lumbar Spine MRI 12/18/24 15:23 IMPRESSION: Limited examination secondary to motion artifact. No abnormal signal intensity or contrast enhancement is identified within the vertebral body of L1 to suggest acute traumatic injury. Within the visualized intervertebral disc spaces, moderate degenerative disease is noted, as detailed above. Duplex Scan Lower Extremity Artery 12/18/24 21:35 IMPRESSION: Abnormal peak systolic velocity and waveform morphology suggesting a popliteal or tibioperoneal trunk stenosis. Three-vessel blood flow into the right calf with single vessel blood flow into the right foot (on the submitted images) Labs Labs: Laboratory Tests 12/19/24 04:53 12/19/24 04:53 Hemoglobin A1c 7.0 H Calcium 7.9 L Phosphorus 6.5 H Magnesium 1.9 Total Bilirubin 0.6 AST 99 H ALT 201 H Alkaline Phosphatase 271 H Total Creatine Kinase 262 H NT-Pro-B Natriuret Pep > 91111 H Total Protein 6.0 L Albumin 2.9 L Microbiology 12/18/24 03:16 Sputum Sputum Culture - Preliminary 12/18/24 03:16 Urine Clean Catch Urine Culture - Final
--- NOTE | 2024-12-19 16:22 | PM.IMPN ---
Progress Note: A&P Assessment and Plan (1) Acute on chronic kidney failure: Code(s): N17.9 - Acute kidney failure, unspecified; N18.9 - Chronic kidney disease, unspecified Status: Acute Assessment and Plan: Patient presents with weakness and may have underlying PNA. Cr on admission 4.3. Baseline Cr 2.1-2.9 range. He was started on IV fluids. Urine eos negative. Eve 42. Total CK 371. Urine prot/Cr 4.7gm consistent with nephrotic syndrome. Complement normal. Hx of + 1:640. Renal US normal. Nephrology consulted and apprecaite their input. Cryoglobulin pending. Phos 6.5. Cr better today. Potassium up to 5,5. No acidosis. Good UOP. Lokelam x1. Consider starting a binder. Entresto remains on hold. Monitor fluid status carefully given low EF. (2) Pneumonia: Code(s): J18.9 - Pneumonia, unspecified organism Status: Acute Assessment and Plan: Patient presents with weakness after having cold and cough symptoms for 3 weeks. No benefit after 2 Z-packs. CXR showing bibasilar infiltrates. No fevers or hypoxia. WBC 12K. He was started on Rocephin and Doxycycline. WBC normal now. BCx not collected. MRSA screen negative. Urine Ag pending Sputum Cx pending. Abx to complete a 7 day course. (3) Transaminitis: Code(s): R74.01 - Elevation of levels of liver transaminase levels Status: Acute Assessment and Plan: AST 215 and ALT 201. AP 340 with normal bili. Levels normal earlier this month. Hepatitis panel negative. Abd US showing cholelithiasis and mildly dilated CBD. Liver is normal in appearance. Related to statin therapy? Lipitor on hold. Levels trending down on repeat. Follow (4) Heart failure with mildly reduced ejection fraction: Code(s): I50.22 - Chronic systolic (congestive) heart failure Status: Acute Assessment and Plan: Echo showing severely reduced systolic fxn with EF 25-30% with diastolic dysfunction, mild valve disease and moderate pulmonary HTN. BNP >30K. CXR showing CMG, bibasilar infiltrates and small pleural effusions. Continue Toprol XL. Entresto and finerenone on hold. Diuretics not listed on home med list. Eve 42 so suspect good renal perfusion. Continue IV fluids to try to improve renal function Monitor UOP, renal fxn, daily weights and fluid balance (5) Diabetes mellitus type 2 with complications: Code(s): E11.8 - Type 2 diabetes mellitus with unspecified complications Status: Chronic Assessment and Plan: A1c 7%. The patient's blood glucose was reviewed on 12/19 Patient is in insulin pump at home. Concern lillie was unable to handle his pump here so this was held. Glucose remains well controlled off the insulin pump. He is eating okay Continue AccuCheks covering with sliding scale. Hypoglycemia protocol available as needed. Continue to monitor (6) Peripheral vascular disease: Code(s): I73.9 - Peripheral vascular disease, unspecified Status: Acute Assessment and Plan: Patient with known PAD. Venous doppler RLE negative for DVT Arterial doppler RLE suggestive of a popliteal or tibioperoneal trunk stenosis. There is three-vessel blood flow into the right calf with single vessel blood flow into the right foot. Continue Zetia. Resume Lipitor when able. Add ASA (7) Hypothyroidism: Code(s): E03.9 - Hypothyroidism, unspecified Status: Acute Assessment and Plan: TSH is 46.4. Free T4 is normal and 0.96. Total T3 is 0.5. Patient is on 250 mcg daily of Synthroid. Unclear if he has been compliant with this. This has been resumed at his home dose. Since free T4 is low-normal, will encourage compliance and repeat thyroid panel as an outpatient. (8) Tobacco dependence: Code(s): F17.200 - Nicotine dependence, unspecified, uncomplicated Status: Acute Assessment and Plan: Patient was educated about the benefits of smoking cessation Plan Low back pain - Lumbar MRI performed but no acute finding seen on limited imaging due to motion artifact. 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 Slept off and on. no Cp or SOB. Cough is better. no n/v. Pruritus is unchanged. He states right leg has poor perfusion and does become discolored when he dangles his leg Exam Narrative: AF 97.7 108/68 110 16 100% ra Gen - NARD sitting up at the side of bed with right leg down Chest - clear BS. CV - RRR S1/S2. Tele showing no significant dysrhythmia Abd - Soft, obese, NT Ext - Left AKA. indurated pitting RLE pedal edema Psych - Nml mood and affect Skin - Warm and dry. multiple wounds bilateral hands in varius stages of healing. RLE reddish-purplish discoloration Objective Data Vital Signs Vital Signs: Vital Signs - 24 hr 12/18/24 18:00 12/18/24 20:00 12/18/24 20:00 Temperature 97.8 F Pulse Rate 118 H 115 H Respiratory Rate 18 Blood Pressure 109/41 L Pulse Oximetry 100 Oxygen Delivery Room Air 12/18/24 20:00 12/18/24 22:00 12/19/24 00:00 Temperature 97.8 F Pulse Rate 116 H 117 H 117 H Respiratory Rate 18 Blood Pressure 109/73 Pulse Oximetry 100 Oxygen Delivery 12/19/24 00:00 12/19/24 00:00 12/19/24 02:00 Temperature Pulse Rate 116 H 116 H Respiratory Rate Blood Pressure Pulse Oximetry Oxygen Delivery Room Air 12/19/24 04:00 12/19/24 04:00 12/19/24 04:00 Temperature 97.7 F Pulse Rate 115 H 114 H Respiratory Rate 18 Blood Pressure 106/68 Pulse Oximetry 100 Oxygen Delivery Room Air 12/19/24 06:00 12/19/24 08:00 12/19/24 08:00 Temperature 97.8 F Pulse Rate 114 H 111 H Respiratory Rate 16 Blood Pressure 92/63 L Pulse Oximetry 98 98 Oxygen Delivery Room Air 12/19/24 08:00 12/19/24 09:01 12/19/24 10:00 Temperature Pulse Rate 111 H 109 H 113 H Respiratory Rate Blood Pressure Pulse Oximetry Oxygen Delivery 12/19/24 12:00 12/19/24 12:00 12/19/24 12:00 Temperature 97.7 F Pulse Rate 109 H 111 H Respiratory Rate 16 Blood Pressure 108/68 Pulse Oximetry 99 100 Oxygen Delivery Room Air 12/19/24 14:00 12/19/24 16:00 Temperature Pulse Rate 112 H 110 H Respiratory Rate Blood Pressure Pulse Oximetry Oxygen Delivery Intake/Output Intake/Output: Intake & Output 12/16/24 12/17/24 12/18/24 12/19/24 23:59 23:59 23:59 23:59 Intake Total 1050 3205 2360 Output Total 2280 1150 Balance 9867 090 3907 Meds/Results Medications: Active Medications Generic Name Dose Route Start Last Admin Trade Name Freq PRN Reason Stop Dose Admin Acetaminophen 650 mg 12/17/24 16:18 12/18/24 20:54 Acetaminophen 325 Mg Tablet PO 650 mg Q4H PRN Administration Mild Pain (1-3) or Fever Hydrocodone Bitart/Acetaminophen 1 tab 12/17/24 19:37 12/19/24 15:50 Hydrocodone/Acetaminophen (*Crx) 5-325 Mg Tablet PO 1 tab Q8H PRN Administration pain 4-6 Calcium Carbonate 200 mg 12/18/24 22:39 Calcium Carbonate (Tums) 500 Mg (200 Mg Elemental) PO Q6H PRN Indigestion Dextrose 12.5 gm 12/17/24 22:39 Dextrose 50% 25 Gm/50 Ml Syringe IV PUSH PRN PRN Hypoglycemia Protocol Diphenhydramine HCl 12.5 mg 12/18/24 14:23 12/18/24 20:54 Diphenhydramine Hcl Elixir 12.5 Mg/5 Ml Udc PO 12.5 mg Q6H PRN Administration Itching Doxycycline Hyclate 100 mg 12/17/24 22:45 12/19/24 09:01 Doxycycline Hyclate 100 Mg Tablet PO 100 mg Q12HR REGINA Administration Ezetimibe 10 mg 12/18/24 09:00 12/19/24 09:01 Ezetimibe 10 Mg Tablet PO 10 mg DAILY REGINA Administration Glucagon 1 mg 12/17/24 22:39 Glucagon For Inj 1 Mg Vial IM PRN PRN Hypoglycemia Protocol Glucose 15 gm 12/17/24 22:39 Glucose Oral Gel 15 Gm Of Glucse In 37.5 Gm Tube PO PRN PRN Hypoglycemia Protocol Heparin Sodium (Porcine) 5,000 units 12/18/24 09:00 12/19/24 09:02 Heparin Sodium 5,000 Units/Ml Vial SUB-Q 5,000 units Q12HR REGINA Administration Sodium Chloride 1,000 mls @ 75 mls/hr 12/17/24 16:20 12/19/24 10:02 Normal Saline Iv IV CONT 125 mls/hr .[id number] REGINA Administration Dextrose 1,000 mls @ 100 mls/hr 12/17/24 22:39 Dextrose 5% 1,000 Ml IVPB PRN PRN Hypoglycemia Protocol Ceftriaxone Sodium 1 gm in 50 mls @ 100 mls/hr 12/17/24 23:00 12/18/24 23:15 Rocephin 1 Gm/Ns 50 Ml IVPB Infused Q24H REGINA Infusion Insulin Aspart 2 - 5 units 12/18/24 11:30 12/19/24 15:54 Insulin Aspart (*Bkc) 100 Units/Ml SUB-Q Not Given ACHS REGINA Protocol Levothyroxine Sodium 250 mcg 12/18/24 06:30 12/19/24 06:37 Levothyroxine Sodium 125 Mcg Tablet BY MOUTH 250 mcg DAILY@0630 REGINA Administration Metoprolol Succinate 50 mg 12/18/24 09:00 12/19/24 09:01 Metoprolol Succinate Ext Rel 50 Mg Tabcr PO 50 mg DAILY REGINA Administration Morphine Sulfate 2 mg 12/17/24 16:18 12/18/24 07:00 Morphine Sulfate (*Crx) 2 Mg/Ml Inj IV PUSH 2 mg Q2H PRN Administration Pain Rated 7-10 Nicotine 1 patch 12/17/24 22:45 12/19/24 09:01 Nicotine (*Pbkc) 21 Mg Patch TRANSDERM 1 patch DAILY REGINA Administration Ondansetron HCl 4 mg 12/17/24 16:18 12/19/24 06:38 Ondansetron Inj 4 Mg/2 Ml Vial IV PUSH 4 mg Q4H PRN Administration Nausea Sacubitril/Valsartan 1 tab 12/17/24 21:00 12/18/24 08:25 Sacubitril/Valsartan 24-26 Mg Tablet PO 1 tab Q12HR REGINA Administration Sertraline HCl 100 mg 12/18/24 09:00 12/19/24 09:01 Sertraline Hcl 50 Mg Tablet PO 100 mg DAILY REGINA Administration Radiology Results: ITS Impressions Chest X-Ray 12/17/24 14:01 Impression: 1: Bibasilar infiltrates, atelectasis versus pneumonia. 2: Small pleural effusions. Lumbar Spine X-Ray 12/17/24 15:44 IMPRESSION: Anterior loss of volume of L1 which is most likely chronic. MRI evaluation advised. Otherwise, No acute osseous abnormality lumbar spine. Degenerative disc disease at the level of L4-L5. Venous Doppler Study 12/18/24 13:13 IMPRESSION: 1. No deep venous thrombosis. Abdomen Ultrasound 12/18/24 13:18 IMPRESSION: 1. Cholelithiasis. No evidence of acute cholecystitis. 2. Mildly dilated common duct. Renal Ultrasound 12/18/24 13:21 IMPRESSION: 1. Normal kidney sizes. No hydronephrosis. Lumbar Spine MRI 12/18/24 15:23 IMPRESSION: Limited examination secondary to motion artifact. No abnormal signal intensity or contrast enhancement is identified within the vertebral body of L1 to suggest acute traumatic injury. Within the visualized intervertebral disc spaces, moderate degenerative disease is noted, as detailed above. Duplex Scan Lower Extremity Artery 12/18/24 21:35 IMPRESSION: Abnormal peak systolic velocity and waveform morphology suggesting a popliteal or tibioperoneal trunk stenosis. Three-vessel blood flow into the right calf with single vessel blood flow into the right foot (on the submitted images) Labs Labs: Laboratory Results - last 24 hr 12/17/24 12/18/24 12/18/24 23:07 16:24 20:53 WBC RBC Hgb Hct MCV MCH MCHC RDW Plt Count MPV Immature Gran % (Auto) Neut % (Auto) Lymph % (Auto) [place] % (Auto) Eos % (Auto) Baso % (Auto) Lymph # (Auto) [place] # (Auto) Eos # (Auto) Baso # (Auto) Abs Immat Gran (auto) Absolute Neuts (auto) Absolute Nucleated RBC Nucleated RBC % Sodium Potassium Chloride Carbon Dioxide Anion Gap BUN Creatinine Estim Creat Clear Calc Estimated GFR Glucose POC Capillary Glucose 163 H 166 H Hemoglobin A1c Calcium Phosphorus Magnesium Total Bilirubin AST ALT Alkaline Phosphatase Total Creatine Kinase NT-Pro-B Natriuret Pep Total Protein Albumin Cryoglobulin Qualit Anti-Streptolysin Scrn 24 12/19/24 12/19/24 12/19/24 04:53 07:55 12:27 WBC 9.5 RBC 4.62 Hgb 11.6 L Hct 38.6 L MCV 83.5 MCH 25.1 L MCHC 30.1 L RDW 17.8 H Plt Count 326 MPV 8.9 Immature Gran % (Auto) 0.6 H Neut % (Auto) 77.3 H Lymph % (Auto) 11.8 L [place] % (Auto) 4.9 Eos % (Auto) 4.6 H Baso % (Auto) 0.8 Lymph # (Auto) 1.12 [place] # (Auto) 0.5 Eos # (Auto) 0.4 H Baso # (Auto) 0.1 Abs Immat Gran (auto) 0.06 H Absolute Neuts (auto) 7.3 H Absolute Nucleated RBC 0.130 H Nucleated RBC % 1.4 H Sodium 131 L Potassium 5.5 H Chloride 98 Carbon Dioxide 22 Anion Gap 11 BUN 85 H Creatinine 3.99 H Estim Creat Clear Calc 23 Estimated GFR 15 L Glucose 174 H POC Capillary Glucose 144 H 158 H Hemoglobin A1c 7.0 H Calcium 7.9 L Phosphorus 6.5 H Magnesium 1.9 Total Bilirubin 0.6 AST 99 H ALT 201 H Alkaline Phosphatase 271 H Total Creatine Kinase 262 H NT-Pro-B Natriuret Pep > 75128 H Total Protein 6.0 L Albumin 2.9 L Cryoglobulin Qualit TNP Anti-Streptolysin Scrn
[2024-12-19 16:25] LABS: Glucose Point of Care 139 mg/dl (65-105)
--- NOTE | 2024-12-19 18:16 | PC.NURSE ---
This patient, Jose Mckinney Jr., was transferred to [facility] on 12/19/24 at 1816. Personal belongings sent with patient. Report given to CHRIS Lala. Appropriate documentation sent with patient. Zeke Ricks RN
--- NOTE | 2024-12-19 18:30 | PC.NURSE ---
Patient transferred from IMU 203 to 304 bed 1. Patient oriented to new room and shown call light
[2024-12-19 21:21] LABS: Glucose Point of Care 140 mg/dl (65-105)
[2024-12-19] MEDS: diphenhydrAMINE HCL ELIXIR 12.5 MG/5 ML UDC PO (21:24)
[2024-12-19] MEDS: MORPHINE SULFATE (*CRX) 2 MG/ML INJ IV PUSH (21:44)
[2024-12-20] MEDS: MORPHINE SULFATE (*CRX) 2 MG/ML INJ IV PUSH ×2 (01:02→04:23)
[2024-12-20 06:31] LABS: Basophils Absolute Auto 0.1 K/mm3 (0.0-0.1); Basophils Percent Auto 0.7 % (0.2-1.2); Eosinophils Absolute Auto 0.3 K/mm3 (0-0.3); Eosinophils Percent Auto 3.3 % (0-4.4); Hematocrit 38.7 % (42.0-52.0); Hemoglobin 11.3 g/dL (14.0-18.0); Immature Granulocyte Absolute 0.05 K/mm3 (0.00-0.031); Immature Granulocyte Percent A 0.5 % (0-0.5); Lymphocytes Absolute Auto 1.68 K/mm3 (0.9-3.2); Lymphocytes Percent Auto 17.5 % (18.3-44.2); Mean Corpuscular HGB Conc 29.2 g/dl (32-36); Mean Corpuscular Hemoglobin 24.7 pg (26-34); Mean Corpuscular Volume 84.7 fl (80-100); Mean Platelet Volume 9.4 fl (7.4-10.4); Monocytes Absolute Auto 0.9 K/mm3 (0.1-0.6); Monocytes Percent Auto 9.5 % (2.6-8.5); Neutrophils Absolute Auto 6.6 K/mm3 (1.3-6.7); Neutrophils Percent Auto 68.5 % (45.5-73.1); Platelet Count Result 339 k/mm3 (150-375); Red Blood Count 4.57 M/mm3 (4.6-6.20); Red Cell Distribution Width 18.1 % (11.5-14.5); White Blood Count 9.6 K/mm3 (4.5-10.0)
[2024-12-20 07:35] LABS: Albumin Level 2.7 g/dL (3.5-5.1); Alkaline Phosphatase 479 U/L (38-126); Anion Gap 11 mmol/L (4-12); Bilirubin,Total 0.7 mg/dL (0.2-1.3); Blood Urea Nitrogen 89 mg/dL (9-20); Calcium 7.9 mg/dL (8.4-10.2); Carbon Dioxide 19 mmol/L (22-30); Chloride 101 mmol/L (98-107); Estimated CRCL calculation 18 ml/min; Estimated Glomerular Filt Rate 12; Glucose 97 mg/dL (65-110); Phosphorus 7.9 mg/dL (2.5-4.5); Potassium 5.6 mmol/L (3.4-5.0); Sodium 131 mmol/L (137-145)
[2024-12-20 07:36] LABS: Alanine Aminotransferase 1066 U/L (6-50); Aspartate Amino Transferase 1539 U/L (17-59)
[2024-12-20 07:50] LABS: Glucose Point of Care 78 mg/dl (65-105)
[2024-12-20 07:52] LABS: Anisocytosis 1+; Hypochromasia 1+; Platelet Estimate Adequate (Adequate)
[2024-12-20 07:54] LABS: Burr Cells 1+; Schistocytes None Seen
[2024-12-20 08:00] VITALS: BP 92/70; PULSE 104; RESP 18; TEMP 35.7; O2SAT 98
--- NOTE | 2024-12-20 08:33 | PM.IMPN ---
Progress Note: A&P Assessment and Plan (1) Transaminitis: Code(s): R74.01 - Elevation of levels of liver transaminase levels Status: Acute Assessment and Plan: On admission, AST 215 and ALT 201. AP 340 with normal bili. Levels normal earlier this month. Hepatitis panel negative. Abd US showing cholelithiasis and mildly dilated CBD. Liver is normal in appearance. Related to statin therapy? Lipitor held. Repeat levels much worse with AST 1539, ALT 1066, AP 479 with normal bili. Consider related to hepatic congestion from IV fluids and/or HoTN. Consider sepsis or from leg ischemia. Consider autoimmune with + Check lactic acid. Stop IV fluids. Hold Toprol. Stop Morphine. GI consult. Hold acetaminophen and check level. Follow (2) Acute on chronic kidney failure: Code(s): N17.9 - Acute kidney failure, unspecified; N18.9 - Chronic kidney disease, unspecified Status: Acute Assessment and Plan: Patient presents with weakness and may have underlying PNA. Cr on admission 4.3. Baseline Cr 2.1-2.9 range. He was started on IV fluids. Urine eos negative. Eve 42. Total CK 371. Urine prot/Cr 4.7gm consistent with nephrotic syndrome. Complement normal. Hx of + 1:640. Renal US normal. Nephrology consulted and appreciate their input. Cryoglobulin pending. Phos 6.5. Cr worse today. Potassium up to 5.6 with non-gap metabolic acidosis. Good UOP at 1450mL. Phos 7.6 Entresto remains on hold. Stop IV fluids. Consider HD. (3) Pneumonia: Code(s): J18.9 - Pneumonia, unspecified organism Status: Acute Assessment and Plan: Patient presents with weakness after having cold and cough symptoms for 3 weeks. No benefit after 2 Z-packs. CXR showing bibasilar infiltrates. No fevers or hypoxia. WBC 12K. He was started on Rocephin and Doxycycline. WBC normal now. BCx not collected. MRSA screen negative. Urine Ag pending Sputum Cx pending. Abx to complete a 7 day course. (4) Heart failure with mildly reduced ejection fraction: Code(s): I50.22 - Chronic systolic (congestive) heart failure Status: Acute Assessment and Plan: Echo showing severely reduced systolic fxn with EF 25-30% with diastolic dysfunction, mild valve disease and moderate pulmonary HTN. BNP >30K. CXR showing CMG, bibasilar infiltrates and small pleural effusions. Entresto and finerenone on hold. Diuretics not listed on home med list. Eve 42 so suspect good renal perfusion. Was on IV fluids but will stop now given the change in his condition with elevated LFTs, worsening renal fxn and soft BP. Hold Toprol XL. Monitor UOP, renal fxn, daily weights and fluid balance (5) Diabetes mellitus type 2 with complications: Code(s): E11.8 - Type 2 diabetes mellitus with unspecified complications Status: Chronic Assessment and Plan: A1c 7%. The patient's blood glucose was reviewed on 12/20 Patient is in insulin pump at home. Concern patient was unable to handle his pump here so this was held. Glucose remains well controlled off the insulin pump. He is eating okay Continue AccuCheks covering with sliding scale. Hypoglycemia protocol available as needed. Continue to monitor (6) Peripheral vascular disease: Code(s): I73.9 - Peripheral vascular disease, unspecified Status: Acute Assessment and Plan: Patient with known PAD. Venous doppler RLE negative for DVT. Arterial doppler RLE suggestive of a popliteal or tibioperoneal trunk stenosis. There is three-vessel blood flow into the right calf with single vessel blood flow into the right foot. Continue Zetia and ASA. Resume Lipitor when able. (7) Hypothyroidism: Code(s): E03.9 - Hypothyroidism, unspecified Status: Acute Assessment and Plan: Review of Endocrine note from 11/12 showing he was to skip the Friday dosing. TSH is 46.4. Free T4 is low-normal at 0.96. Total T3 is 0.5. Patient is on 250 mcg daily of Synthroid. Suspect the skipped dose has resulted in the change in his thyroid panel. Will adjust to take only 1/2 tablet on Sundays. (8) Tobacco dependence: Code(s): F17.200 - Nicotine dependence, unspecified, uncomplicated Status: Acute Assessment and Plan: Patient was educated about the benefits of smoking cessation Plan Low back pain - Lumbar MRI performed but no acute finding seen on limited imaging due to motion artifact. 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 Slept well last night. NO CP or SOB. Slight cough now. Pruritus is better. No leg pain Exam Narrative: AF 98.2 90/58 108 18 95% ra Gen - NARD sitting up in bed Chest - bibasilar crackles, nml RR CV - RRR S1/S2 Abd - Soft, obese, NT Ext - Left AKA. indurated pitting RLE pedal edema that is cool to touch Psych - Nml mood and affect Skin - Warm and dry. multiple wounds bilateral hands in varius stages of healing with right deep wound overlying the 4th MCP with tendon exposed. RLE reddish-purplish discoloration Objective Data Vital Signs Vital Signs: Vital Signs - 24 hr 12/19/24 09:01 12/19/24 10:00 12/19/24 12:00 Temperature Pulse Rate 109 H 113 H Respiratory Rate Blood Pressure Pulse Oximetry 99 Oxygen Delivery Room Air 12/19/24 12:00 12/19/24 12:00 12/19/24 14:00 Temperature 97.7 F Pulse Rate 109 H 111 H 112 H Respiratory Rate 16 Blood Pressure 108/68 Pulse Oximetry 100 Oxygen Delivery 12/19/24 16:00 12/19/24 16:00 12/19/24 16:00 Temperature 96.0 F L Pulse Rate 110 H 110 H Respiratory Rate 16 Blood Pressure 100/68 Pulse Oximetry 99 97 Oxygen Delivery Room Air 12/19/24 22:09 Temperature 98.2 F Pulse Rate 108 H Respiratory Rate 18 Blood Pressure 90/58 L Pulse Oximetry 95 Oxygen Delivery Intake/Output Intake/Output: Intake & Output 12/17/24 12/18/24 12/19/24 12/20/24 23:59 23:59 23:59 23:59 Intake Total 1050 3205 3560 0 Output Total 2280 1450 0 Balance 9500 992 9197 0 Meds/Results Medications: Active Medications Generic Name Dose Route Start Last Admin Trade Name Freq PRN Reason Stop Dose Admin Acetaminophen 650 mg 12/17/24 16:18 12/18/24 20:54 Acetaminophen 325 Mg Tablet PO 650 mg Q4H PRN Administration Mild Pain (1-3) or Fever Hydrocodone Bitart/Acetaminophen 1 tab 12/17/24 19:37 12/19/24 15:50 Hydrocodone/Acetaminophen (*Crx) 5-325 Mg Tablet PO 1 tab Q8H PRN Administration pain 4-6 Aspirin 81 mg 12/20/24 08:00 Aspirin 81 Mg Chewable Tablet PO DAILY@0800 REGINA Calcium Carbonate 200 mg 12/18/24 22:39 Calcium Carbonate (Tums) 500 Mg (200 Mg Elemental) PO Q6H PRN Indigestion Dextrose 12.5 gm 12/17/24 22:39 Dextrose 50% 25 Gm/50 Ml Syringe IV PUSH PRN PRN Hypoglycemia Protocol Diphenhydramine HCl 12.5 mg 12/18/24 14:23 12/19/24 21:24 Diphenhydramine Hcl Elixir 12.5 Mg/5 Ml Udc PO 12.5 mg Q6H PRN Administration Itching Doxycycline Hyclate 100 mg 12/17/24 22:45 12/19/24 21:24 Doxycycline Hyclate 100 Mg Tablet PO 100 mg Q12HR REGINA Administration Ezetimibe 10 mg 12/18/24 09:00 12/19/24 09:01 Ezetimibe 10 Mg Tablet PO 10 mg DAILY REGINA Administration Glucagon 1 mg 12/17/24 22:39 Glucagon For Inj 1 Mg Vial IM PRN PRN Hypoglycemia Protocol Glucose 15 gm 12/17/24 22:39 Glucose Oral Gel 15 Gm Of Glucse In 37.5 Gm Tube PO PRN PRN Hypoglycemia Protocol Heparin Sodium (Porcine) 5,000 units 12/18/24 09:00 12/19/24 21:24 Heparin Sodium 5,000 Units/Ml Vial SUB-Q 5,000 units Q12HR REGINA Administration Dextrose 1,000 mls @ 100 mls/hr 12/17/24 22:39 Dextrose 5% 1,000 Ml IVPB PRN PRN Hypoglycemia Protocol Ceftriaxone Sodium 1 gm in 50 mls @ 100 mls/hr 12/17/24 23:00 12/19/24 21:32 Rocephin 1 Gm/Ns 50 Ml IVPB 100 mls/hr Q24H REGINA Administration Insulin Aspart 2 - 5 units 12/18/24 11:30 12/19/24 21:25 Insulin Aspart (*Bkc) 100 Units/Ml SUB-Q Not Given ACHS [facility] Protocol Levothyroxine Sodium 250 mcg 12/18/24 06:30 12/20/24 06:02 Levothyroxine Sodium 125 Mcg Tablet BY MOUTH Not Given DAILY@0630 [facility] Metoprolol Succinate 50 mg 12/18/24 09:00 12/19/24 09:01 Metoprolol Succinate Ext Rel 50 Mg Tabcr PO 50 mg DAILY REGINA Administration Nicotine 1 patch 12/17/24 22:45 12/19/24 09:01 Nicotine (*Pbkc) 21 Mg Patch TRANSDERM 1 patch DAILY REGINA Administration Ondansetron HCl 4 mg 12/17/24 16:18 12/19/24 21:24 Ondansetron Inj 4 Mg/2 Ml Vial IV PUSH 4 mg Q4H PRN Administration Nausea Sacubitril/Valsartan 1 tab 12/17/24 21:00 12/18/24 08:25 Sacubitril/Valsartan 24-26 Mg Tablet PO 1 tab Q12HR REGINA Administration Sertraline HCl 100 mg 12/18/24 09:00 12/19/24 09:01 Sertraline Hcl 50 Mg Tablet PO 100 mg DAILY REGINA Administration Radiology Results: ITS Impressions Lumbar Spine X-Ray 12/17/24 15:44 IMPRESSION: Anterior loss of volume of L1 which is most likely chronic. MRI evaluation advised. Otherwise, No acute osseous abnormality lumbar spine. Degenerative disc disease at the level of L4-L5. Venous Doppler Study 12/18/24 13:13 IMPRESSION: 1. No deep venous thrombosis. Abdomen Ultrasound 12/18/24 13:18 IMPRESSION: 1. Cholelithiasis. No evidence of acute cholecystitis. 2. Mildly dilated common duct. Renal Ultrasound 12/18/24 13:21 IMPRESSION: 1. Normal kidney sizes. No hydronephrosis. Lumbar Spine MRI 12/18/24 15:23 IMPRESSION: Limited examination secondary to motion artifact. No abnormal signal intensity or contrast enhancement is identified within the vertebral body of L1 to suggest acute traumatic injury. Within the visualized intervertebral disc spaces, moderate degenerative disease is noted, as detailed above. Duplex Scan Lower Extremity Artery 12/18/24 21:35 IMPRESSION: Abnormal peak systolic velocity and waveform morphology suggesting a popliteal or tibioperoneal trunk stenosis. Three-vessel blood flow into the right calf with single vessel blood flow into the right foot (on the submitted images) Chest X-Ray 12/20/24 06:01 Impression: Small bilateral pleural effusions with mild bibasilar pulmonary edema/atelectasis. Labs Labs: Laboratory Results - last 24 hr 12/19/24 12/19/24 12/19/24 04:53 12:27 15:48 WBC RBC Hgb Hct MCV MCH MCHC RDW Plt Count MPV Immature Gran % (Auto) Neut % (Auto) Lymph % (Auto) [place] % (Auto) Eos % (Auto) Baso % (Auto) Lymph # (Auto) [place] # (Auto) Eos # (Auto) Baso # (Auto) Abs Immat Gran (auto) Absolute Neuts (auto) Absolute Nucleated RBC Band Neutrophils % Nucleated RBC % Platelet Estimate Hypochromasia Anisocytosis [place] Cells Schistocytes Sodium Potassium Chloride Carbon Dioxide Anion Gap BUN Creatinine Estim Creat Clear Calc Estimated GFR Glucose POC Capillary Glucose 158 H 139 H Calcium Phosphorus Magnesium Total Bilirubin AST ALT Alkaline Phosphatase Total Protein Albumin Cryoglobulin Qualit TNP 12/19/24 12/20/24 12/20/24 20:55 05:56 07:48 WBC 9.6 RBC 4.57 L Hgb 11.3 L Hct 38.7 L MCV 84.7 MCH 24.7 L MCHC 29.2 L RDW 18.1 H Plt Count 339 MPV 9.4 Immature Gran % (Auto) 0.5 Neut % (Auto) 68.5 Lymph % (Auto) 17.5 L [place] % (Auto) 9.5 H Eos % (Auto) 3.3 Baso % (Auto) 0.7 Lymph # (Auto) 1.68 [place] # (Auto) 0.9 H Eos # (Auto) 0.3 Baso # (Auto) 0.1 Abs Immat Gran (auto) 0.05 H Absolute Neuts (auto) 6.6 Absolute Nucleated RBC 0.580 H Band Neutrophils % Not Reportable Nucleated RBC % 6.0 H Platelet Estimate Adequate Hypochromasia 1+ Anisocytosis 1+ [place] Cells 1+ Schistocytes None seen Sodium 131 L Potassium 5.6 H Chloride 101 Carbon Dioxide 19 L Anion Gap 11 BUN 89 H Creatinine 4.93 H Estim Creat Clear Calc 18 Estimated GFR 12 L Glucose 97 POC Capillary Glucose 140 H 78 Calcium 7.9 L Phosphorus 7.9 H Magnesium 2.0 Total Bilirubin 0.7 AST 1539 H ALT 1066 H Alkaline Phosphatase 479 H Total Protein 6.0 L Albumin 2.7 L Cryoglobulin Qualit
[2024-12-20] MEDS: DOXYCYCLINE HYCLATE 100 MG TABLET PO ×2 (08:37→20:52)
[2024-12-20] MEDS: HEPARIN SODIUM 5,000 UNITS/ML VIAL 5000 UNITS SUB-Q ×2 (08:38→20:52)
[2024-12-20] MEDS: SERTRALINE HCL 50 MG TABLET 100 MG PO (08:38)
[2024-12-20] MEDS: ASPIRIN 81 MG CHEWABLE TABLET PO (08:38)
[2024-12-20] MEDS: EZETIMIBE 10 MG TABLET PO (08:39)
[2024-12-20 09:27] LABS: Iron 34 ug/dL (49-181)
[2024-12-20 09:32] LABS: CRP 4.6 mg/dL (<1.0); Creatine Kinase 205 U/L (55-170)
[2024-12-20 09:33] LABS: Lactic Acid Reflex 1.1 mmol/L (0.7-2.0)
[2024-12-20 09:39] LABS: Percent Iron Saturation 13 % (20-50)
[2024-12-20 10:00] VITALS: BMI 30.4
--- NOTE | 2024-12-20 10:05 | PM.PNNEP ---
Progress Note: A&P Assessment and Plan (1) Acute kidney injury: Code(s): N17.9 - Acute kidney failure, unspecified Status: Acute Assessment and Plan: ongoing worsening noted... as noted on admission evaluation to date noted: renal u/s normal urine eosinophils negative nephrotic range proteinuria prerenal urine electrolytes CPK mildly elevated (but not enought to affect kidney function) further serologies pending outpatient evaluation noted - normal complements but hematuria with positive remains at risk for [employer]/dialysis - possible uremic symptoms? attempt renal biopsy if able follow trend of repeat labs and UOP (2) Stage 3b chronic kidney disease: Code(s): N18.32 - Chronic kidney disease, stage 3b Status: Chronic Assessment and Plan: baseline creatinine runs around 1.7 - 2.3mg/dl suspected to be secondary to diabetes and hypertension HOWEVER, positive noted in association with hematuria and nephrotic range proteinuria as well as rise in creatinine to 2.76mg/dl noted on outpatient testing in early Oct 2024 renal biopsy recommended during office visit with Dr. Britt at that time (but apparently was never done) (3) Pneumonia: Code(s): J18.9 - Pneumonia, unspecified organism Status: Acute Assessment and Plan: admission CXR with bibasilar infiltrates mildly elevated WBC but no fevers on empiric antibiotics follow culture data (4) Heart failure with mildly reduced ejection fraction: Code(s): I50.22 - Chronic systolic (congestive) heart failure Status: Acute Assessment and Plan: known history repeat Echo (12/18) noted: severely reduced systolic function with EF 25-30% diastolic dysfunction mild valvular disease moderate pulmonary hypertension CXR with cardiomegaly, bibasilar infiltrates and small pleural effusions Entresto and diuretics on hold given #1 follow daily weights and volume status closely Cardiology following (5) Transaminitis: Code(s): R74.01 - Elevation of levels of liver transaminase levels Status: Deleted Assessment and Plan: normal earlier in November 2024 also continues to worsen hepatitis panel negative abd US showing cholelithiasis and mildly dilated CBD; liver is normal in appearance holding statin Gastroenterology following follow trend (6) Anemia: Code(s): D64.9 - Anemia, unspecified Status: Acute Assessment and Plan: related to ELEANOR, CKD, and acute illness follow trend of H/H no need for KALI at this time (7) Peripheral vascular disease: Code(s): I73.9 - Peripheral vascular disease, unspecified Status: Acute Assessment and Plan: known history on zetia but statin on hold given elevated LFTs complicated by ongoing smoking arterial dopplers noted (8) Diabetes mellitus type 2 with complications: Code(s): E11.8 - Type 2 diabetes mellitus with unspecified complications Status: Chronic Assessment and Plan: follow accu-cheks glycemic control per hospitalist Will continue to follow. Subjective Date/time seen: 12/20/24 10:05 Interval history: Follow-up for acute kidney injury/acute renal failure on chronic kidney disease. No apparent distress but noted ongoing deterioration with renal function/creatinine along with liver function tests; on/off confusion noted at this time as well; worsening swelling/edema also noted with fluctuating urine output as well. Exam Narrative: General: elderly male in NAD Heart: normal S1 and S2; no rub Lungs: coarse breath sounds Abdomen: obese but soft, nontender, nondistended, positive bowel sounds Extremities: no cyanosis or clubbing; 1 - 2+ edema in RLE; s/p left AKA Skin: warm and intact; healing bilateral hand excoriations Objective Data Vital Signs Vital Signs: Vital Signs Temp Pulse Resp BP Pulse Ox 12/20/24 08:00 96.3 F L 104 H 18 92/70 L 98 12/19/24 22:09 98.2 F 108 H 18 90/58 L 95 Intake/Output Intake/Output: Intake & Output 12/17/24 12/18/24 12/19/24 12/20/24 23:59 23:59 23:59 23:59 Intake Total 1050 3205 3560 597 Output Total 2280 1450 0 Balance 2780 481 0692 597 Meds/Results Medications: Active Medications Generic Name Dose Route Start Last Admin Trade Name Freq PRN Reason Stop Dose Admin Acetaminophen 650 mg 12/17/24 16:18 12/18/24 20:54 Acetaminophen 325 Mg Tablet PO 650 mg Q4H PRN Administration Mild Pain (1-3) or Fever Hydrocodone Bitart/Acetaminophen 1 tab 12/17/24 19:37 12/19/24 15:50 Hydrocodone/Acetaminophen (*Crx) 5-325 Mg Tablet PO 1 tab Q8H PRN Administration pain 4-6 Aspirin 81 mg 12/20/24 08:00 12/20/24 08:38 Aspirin 81 Mg Chewable Tablet PO 81 mg DAILY@0800 REGINA Administration Calcium Carbonate 200 mg 12/18/24 22:39 Calcium Carbonate (Tums) 500 Mg (200 Mg Elemental) PO Q6H PRN Indigestion Dextrose 12.5 gm 12/17/24 22:39 Dextrose 50% 25 Gm/50 Ml Syringe IV PUSH PRN PRN Hypoglycemia Protocol Diphenhydramine HCl 12.5 mg 12/18/24 14:23 12/20/24 17:07 Diphenhydramine Hcl Elixir 12.5 Mg/5 Ml Udc PO 12.5 mg Q6H PRN Administration Itching Doxycycline Hyclate 100 mg 12/17/24 22:45 12/20/24 08:37 Doxycycline Hyclate 100 Mg Tablet PO 100 mg Q12HR REGINA Administration Ezetimibe 10 mg 12/18/24 09:00 12/20/24 08:39 Ezetimibe 10 Mg Tablet PO 10 mg DAILY REGINA Administration Glucagon 1 mg 12/17/24 22:39 Glucagon For Inj 1 Mg Vial IM PRN PRN Hypoglycemia Protocol Glucose 15 gm 12/17/24 22:39 Glucose Oral Gel 15 Gm Of Glucse In 37.5 Gm Tube PO PRN PRN Hypoglycemia Protocol Heparin Sodium (Porcine) 5,000 units 12/18/24 09:00 12/20/24 08:38 Heparin Sodium 5,000 Units/Ml Vial SUB-Q 5,000 units Q12HR REGINA Administration Dextrose 1,000 mls @ 100 mls/hr 12/17/24 22:39 Dextrose 5% 1,000 Ml IVPB PRN PRN Hypoglycemia Protocol Ceftriaxone Sodium 1 gm in 50 mls @ 100 mls/hr 12/17/24 23:00 12/19/24 21:32 Rocephin 1 Gm/Ns 50 Ml IVPB 100 mls/hr Q24H COUNT INCLUDES THE [facility] Administration Insulin Aspart 2 - 5 units 12/18/24 11:30 12/20/24 11:53 Insulin Aspart (*Bkc) 100 Units/Ml SUB-Q Not Given ACHS COUNT INCLUDES THE [facility] Protocol Levothyroxine Sodium 250 mcg 12/21/24 06:30 Levothyroxine Sodium 125 Mcg Tablet PO MoTuWeThFrSa@0630 COUNT INCLUDES THE [facility] Levothyroxine Sodium 125 mcg 12/26/24 06:30 Levothyroxine Sodium 125 Mcg Tablet PO Mitchell@0630 COUNT INCLUDES THE [facility] Metoprolol Succinate 50 mg 12/18/24 09:00 12/19/24 09:01 Metoprolol Succinate Ext Rel 50 Mg Tabcr PO 50 mg DAILY REGINA Administration Nicotine 1 patch 12/17/24 22:45 12/19/24 09:01 Nicotine (*Pbkc) 21 Mg Patch TRANSDERM 1 patch DAILY REGINA Administration Ondansetron HCl 4 mg 12/17/24 16:18 12/19/24 21:24 Ondansetron Inj 4 Mg/2 Ml Vial IV PUSH 4 mg Q4H PRN Administration Nausea Oxycodone HCl 2.5 mg 12/20/24 08:52 12/20/24 17:07 Oxycodone Hcl (*Crx) 2.5 Mg Tab Ir PO 2.5 mg Q4H PRN Administration Pain Rated 7-10 Sacubitril/Valsartan 1 tab 12/17/24 21:00 12/18/24 08:25 Sacubitril/Valsartan 24-26 Mg Tablet PO 1 tab Q12HR REGINA Administration Sertraline HCl 100 mg 12/18/24 09:00 12/20/24 08:38 Sertraline Hcl 50 Mg Tablet PO 100 mg DAILY REGINA Administration Radiology Results: ITS Impressions Lumbar Spine X-Ray 12/17/24 15:44 IMPRESSION: Anterior loss of volume of L1 which is most likely chronic. MRI evaluation advised. Otherwise, No acute osseous abnormality lumbar spine. Degenerative disc disease at the level of L4-L5. Venous Doppler Study 12/18/24 13:13 IMPRESSION: 1. No deep venous thrombosis. Abdomen Ultrasound 12/18/24 13:18 IMPRESSION: 1. Cholelithiasis. No evidence of acute cholecystitis. 2. Mildly dilated common duct. Renal Ultrasound 12/18/24 13:21 IMPRESSION: 1. Normal kidney sizes. No hydronephrosis. Lumbar Spine MRI 12/18/24 15:23 IMPRESSION: Limited examination secondary to motion artifact. No abnormal signal intensity or contrast enhancement is identified within the vertebral body of L1 to suggest acute traumatic injury. Within the visualized intervertebral disc spaces, moderate degenerative disease is noted, as detailed above. Duplex Scan Lower Extremity Artery 12/18/24 21:35 IMPRESSION: Abnormal peak systolic velocity and waveform morphology suggesting a popliteal or tibioperoneal trunk stenosis. Three-vessel blood flow into the right calf with single vessel blood flow into the right foot (on the submitted images) Chest X-Ray 12/20/24 06:01 Impression: Small bilateral pleural effusions with mild bibasilar pulmonary edema/atelectasis. Labs Labs: Laboratory Tests 12/20/24 05:56 12/20/24 05:56 Calcium 7.9 L Phosphorus 7.9 H Magnesium 2.0 Iron 34 L TIBC 265 % Saturation 13 L Ferritin 552.00 H Total Bilirubin 0.7 AST 1539 H ALT 1066 H Alkaline Phosphatase 479 H Total Creatine Kinase 205 H C-Reactive Protein 4.6 H Total Protein 6.0 L Albumin 2.7 L Vitamin B12 > 1000.0 H Folate 13.5 Cryoglobulin % Pending Cryoglobulin Qualit Pending Microbiology 12/18/24 03:16 Sputum Sputum Culture - Preliminary Staphylococcus aureus
[2024-12-20 10:44] LABS: Folic Acid 13.5 ng/mL (2.76->20); Vitamin B12 > 1000.0 pg/mL (239-931)
[2024-12-20 11:21] LABS: Acetaminophen < 10 ug/mL (10-30); Ammonia < 9 umol/L (9-30)
[2024-12-20] MEDS: SODIUM ZIRCONIUM CYCLOSILICATE 10 GM POWD.PACK PO ×2 (11:36→20:48)
[2024-12-20 11:41] LABS: Glucose Point of Care 76 mg/dl (65-105)
[2024-12-20 13:53] LABS: Complement Total CH50 60 U/mL (31-60)
--- NOTE | 2024-12-20 15:00 | P.CONCA_ITS ---
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 daily Paroxysmal atrial fibrillation -this is a new diagnosis for and given his degree elevated risk for stroke, would recommend Eliquis 5 mg p.o. b.i.d. Hyperlipidemia -statins on hold due to transaminitis -continue add Zetia 10 mg p.o. 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 He currently no longer feels weak and denies any chest discomfort shortness of breath. He currently has no complaints. Review of Systems 2 Cardiovascular: Cardiovascular: Reports as per HPI Respiratory: Respiratory: Reports as per HPI [facility] Past Medical History Medical History (Updated 12/20/24 @ 15:09 by Ronn Green MD) Tobacco dependence Diastolic dysfunction Heart failure with mildly reduced ejection fraction Albuminuria Diabetic peripheral neuropathy Insulin dependent type 2 diabetes mellitus Stage 3b chronic kidney disease Dyslipidemia Peripheral vascular disease Hypothyroidism Essential hypertension Chronic, continuous use of opioids Chronic pain of both shoulders Surgical History Surgical History History of left above knee amputation History of amputation of lesser toe of right foot Family History Family History Father Family history of diabetes mellitus in first degree relative Hypertension Family history of coronary artery disease Mother Family history of diabetes mellitus in first degree relative Sibling Family history of diabetes mellitus in first degree relative Other Diabetes mellitus Family history of cardiovascular disease Social History Social History Social History: Surrogate medical decision maker: Cristal Frye, friend. Code status: Full code. Smoking packs per day: 1.5 Smoking cigarettes per day: 30.0 Years smoked: 50 Smoking pack-years: 75.00 Smoking status: Current every day smoker Tobacco type: cigarettes Second hand tobacco smoke exposure: No Alcohol intake: former Substance use: current Substance use type: marijuana Do You Feel Safe in your Home?: Yes Lack of Transportation: No Lack of Food: Never True Current Housing: I Have Housing Concerned About Future Housing: No Difficulty Paying Gas/Electric Bills: No Difficulty Paying for Meds: No Currently Unemployed: No Education: High School Diploma/GED Difficulty w/ Childcare or Family Care: No Living arrangements: with family Additional living arrangements comments: girlfriend Occupation/Education: other Spiritual care concerns: No Meds Home Medications and Allergies Home Medications ?Medication ?Instructions ?Recorded ?Confirmed ?Type hydrocodone 5 mg-acetaminophen 325 1 tablet PO Q8H PRN pain #60 tabs 04/27/20 12/17/24 Rx mg tablet glucagon 3 mg/actuation nasal 3 mg intranasal ONCE #1 ea 08/06/23 12/17/24 Rx spray (Baqsimi) glucose 4 gram chewable tablet 16 g (4 x 4 gram) PO Q15M PRN 08/06/23 12/17/24 Rx hypoglycemia #300 tabs sertraline 100 mg tablet 100 mg PO DAILY 02/26/24 12/17/24 History metoprolol succinate 50 mg 50 mg PO DAILY 04/01/24 12/17/24 History tablet,extended release 24 hr sacubitril 24 mg-valsartan 26 mg 1 tablet PO BID 04/20/24 12/17/24 History tablet (Entresto) finerenone 10 mg tablet (Kerendia) 10 mg PO DAILY #30 tabs 04/23/24 12/17/24 Rx atorvastatin 80 mg tablet See Rx Instructions .Route 05/14/24 12/17/24 Rx .COMPLEX #90 tabs ezetimibe 10 mg tablet 10 mg PO DAILY #90 tabs 08/05/24 12/17/24 Rx levothyroxine 125 mcg tablet See Rx Instructions .Route 10/08/24 12/17/24 Rx .COMPLEX #180 tabs insulin lispro 100 unit/mL 1 sliding scale dose subcut 10/26/24 12/17/24 Rx subcutaneous solution (Humalog USEASDIRECTD insulin pump #100 mL U-100 Insulin) blood-glucose sensor (Dexcom G7 #9 ea 11/02/24 12/17/24 Rx Sensor device) Allergies Allergy/AdvReac Type Severity Reaction Status Date / Time vancomycin Allergy Severe Anaphylactic Verified 12/18/24 02:25 Shock Vital Signs Vital Signs - 24 hr 12/19/24 16:00 12/19/24 16:00 12/19/24 16:00 Temperature 35.6 C L Pulse Rate 110 H 110 H Respiratory Rate 16 Blood Pressure 100/68 Pulse Oximetry 99 97 Oxygen Delivery Room Air 12/19/24 22:09 12/20/24 08:00 Temperature 36.8 C 35.7 C L Pulse Rate 108 H 104 H Respiratory Rate 18 18 Blood Pressure 90/58 L 92/70 L Pulse Oximetry 95 98 Oxygen Delivery Exam 2 Const: General: comfortable HENMT: Mouth: Yes moist mucous membranes Eyes: EOM: EOMs intact bilaterally Neck: Neck: no JVD Resp: Effort & Inspection: normal respiratory effort Auscultation: clear to auscultation bilaterally Cardio: Rate: tachycardic Rhythm: abnormal rhythm Neuro: Speech: normal speech Extrem: Other: Left AKA and right TMA Results Labs and Meds 12/20/24 05:56 12/20/24 05:56 Lab results: Cardiac Enzymes 12/20/24 Range/Units 05:56 AST 1539 H (17-59) U/L CBC 12/20/24 Range/Units 05:56 WBC 9.6 (4.5-10.0) K/mm3 RBC 4.57 L (4.6-6.20) M/mm3 Hgb 11.3 L (14.0-18.0) g/dL Hct 38.7 L (42.0-52.0) % Plt Count 339 (150-375) k/mm3 Lymph # (Auto) 1.68 (0.9-3.2) K/mm3 [place] # (Auto) 0.9 H (0.1-0.6) K/mm3 Eos # (Auto) 0.3 (0-0.3) K/mm3 Baso # (Auto) 0.1 (0.0-0.1) K/mm3 Comprehensive Metabolic Panel 12/20/24 Range/Units 05:56 Sodium 131 L (137-145) mmol/L Potassium 5.6 H (3.4-5.0) mmol/L Chloride 101 (98-107) mmol/L Carbon Dioxide 19 L (22-30) mmol/L BUN 89 H (9-20) mg/dL Creatinine 4.93 H (0.7-1.3) mg/dL Glucose 97 (65-110) mg/dL Calcium 7.9 L (8.4-10.2) mg/dL AST 1539 H (17-59) U/L ALT 1066 H (6-50) U/L Alkaline Phosphatase 479 H (38-126) U/L Total Protein 6.0 L (6.3-8.2) g/dL Albumin 2.7 L (3.5-5.1) g/dL Intake and Output 12/19/24 12/20/24 12/20/24 23:59 07:59 15:59 Intake Total 1200 0 597 Output Total 300 0 Balance 900 0 597 Intake: IV 1000 Sodium Chloride 0.9% IV 1,000 1000 ml @ 75 mls/hr IV CONT .[id number] [facility] Rx#:[id number] Oral 200 0 597 Output: Urine 300 0 Patient Weight 12/20/24 23:59 Weight 107.6 kg
[2024-12-20 16:00] VITALS: BP 104/64; PULSE 100; RESP 18; TEMP 35.9; O2SAT 98
--- NOTE | 2024-12-20 16:10 | P.CONGI_ITS ---
Assessment and Plan Assessment and plan (1) Transaminitis: Code(s): R74.01 - Elevation of levels of liver transaminase levels Status: Deleted Assessment and Plan: The patient's markedly elevated transaminases differential considerations include: a) passive hepatic congestion, given his pre-existing cardiac comorbidities (diabetes, hypertension, and heart condition), b) ischemic hepatopathy, which can occur in the absence of overt hypotension due to congestion, c) autoimmune hepatitis, as suggested by the elevated titer of 1:640, and d) drug-induced liver injury, with doxycycline as a potential culprit, although its recent initiation makes this less likely. To clarify the biliary anatomy and exclude mechanical obstruction, an MRCP without contrast is recommended. A liver biopsy is crucial for differentiating between passive congestion and an inflammatory etiology, such as autoimmune or drug-induced hepatitis. Both studies will be scheduled for tomorrow. (2) Abnormal transaminases: Code(s): R74.8 - Abnormal levels of other serum enzymes Status: Acute GI Consult Note Consult date/time: 12/20/24 16:10 Reason for consult: Significantly increased liver transaminases. HPI: Jose Mckinney Jr., a 64-year-old male with a significant past medical history including hypertension, diabetes, chronic renal failure, and prior left above-knee amputation, presented on 12/17 with severe weakness and progressively increasing transaminases. He reports worsening pruritus for the past two months. Diagnostic workup revealed gallstones without significant biliary dilation, pneumonia, and elevated liver enzymes. He is currently receiving intravenous ceftriaxone and doxycycline for pneumonia. Current laboratory values are as follows: AST 1066, ALT 1539, alkaline phosphatase 470, bilirubin within normal limits, and albumin 3.1. Viral hepatitis A/B/C were negative, and was 1:640. His renal function continues to decline, today's creatinine 4.9. Review of Systems 2 Review of Systems: All systems reviewed & are unremarkable except as noted in HPI and below PMFSH Past Medical History Medical History (Updated 12/20/24 @ 16:18 by Binu Glaser MD) Tobacco dependence Diastolic dysfunction Heart failure with mildly reduced ejection fraction Albuminuria Diabetic peripheral neuropathy Insulin dependent type 2 diabetes mellitus Stage 3b chronic kidney disease Dyslipidemia Peripheral vascular disease Hypothyroidism Essential hypertension Chronic, continuous use of opioids Chronic pain of both shoulders Surgical History Surgical History History of left above knee amputation History of amputation of lesser toe of right foot Family History Family History Father Family history of diabetes mellitus in first degree relative Hypertension Family history of coronary artery disease Mother Family history of diabetes mellitus in first degree relative Sibling Family history of diabetes mellitus in first degree relative Other Diabetes mellitus Family history of cardiovascular disease Social History Social History Social History: Surrogate medical decision maker: Cristal Frye, friend. Code status: Full code. Smoking packs per day: 1.5 Smoking cigarettes per day: 30.0 Years smoked: 50 Smoking pack-years: 75.00 Smoking status: Current every day smoker Tobacco type: cigarettes Second hand tobacco smoke exposure: No Alcohol intake: former Substance use: current Substance use type: marijuana Do You Feel Safe in your Home?: Yes Lack of Transportation: No Lack of Food: Never True Current Housing: I Have Housing Concerned About Future Housing: No Difficulty Paying Gas/Electric Bills: No Difficulty Paying for Meds: No Currently Unemployed: No Education: High School Diploma/GED Difficulty w/ Childcare or Family Care: No Living arrangements: with family Additional living arrangements comments: girlfriend Occupation/Education: other Spiritual care concerns: No Meds Home Medications and Allergies Home Medications ?Medication ?Instructions ?Recorded ?Confirmed ?Type hydrocodone 5 mg-acetaminophen 325 1 tablet PO Q8H PRN pain #60 tabs 04/27/20 12/17/24 Rx mg tablet glucagon 3 mg/actuation nasal 3 mg intranasal ONCE #1 ea 08/06/23 12/17/24 Rx spray (Baqsimi) glucose 4 gram chewable tablet 16 g (4 x 4 gram) PO Q15M PRN 08/06/23 12/17/24 Rx hypoglycemia #300 tabs sertraline 100 mg tablet 100 mg PO DAILY 02/26/24 12/17/24 History metoprolol succinate 50 mg 50 mg PO DAILY 04/01/24 12/17/24 History tablet,extended release 24 hr sacubitril 24 mg-valsartan 26 mg 1 tablet PO BID 04/20/24 12/17/24 History tablet (Entresto) finerenone 10 mg tablet (Kerendia) 10 mg PO DAILY #30 tabs 04/23/24 12/17/24 Rx atorvastatin 80 mg tablet See Rx Instructions .Route 05/14/24 12/17/24 Rx .COMPLEX #90 tabs ezetimibe 10 mg tablet 10 mg PO DAILY #90 tabs 08/05/24 12/17/24 Rx levothyroxine 125 mcg tablet See Rx Instructions .Route 10/08/24 12/17/24 Rx .COMPLEX #180 tabs insulin lispro 100 unit/mL 1 sliding scale dose subcut 10/26/24 12/17/24 Rx subcutaneous solution (Humalog USEASDIRECTD insulin pump #100 mL U-100 Insulin) blood-glucose sensor (Dexcom G7 #9 ea 11/02/24 12/17/24 Rx Sensor device) Allergies Allergy/AdvReac Type Severity Reaction Status Date / Time vancomycin Allergy Severe Anaphylactic Verified 12/18/24 02:25 Shock Vital Signs Vital Signs - 24 hr 12/19/24 22:09 12/20/24 08:00 Temperature 98.2 F 96.3 F L Pulse Rate 108 H 104 H Respiratory Rate 18 18 Blood Pressure 90/58 L 92/70 L Pulse Oximetry 95 98 Exam 2 Narrative: Alert and oriented x3. Obese, left above knee amputation. Abdomen: Markedly distended, nontender, no hepatosplenomegaly, hard to evaluate for masses given obesity. Rest of the exam within normal limits. Results Labs 12/20/24 05:56 12/20/24 05:56 Labs: Short CBC 12/20/24 Range/Units 05:56 WBC 9.6 (4.5-10.0) K/mm3 Hgb 11.3 L (14.0-18.0) g/dL Hct 38.7 L (42.0-52.0) % Plt Count 339 (150-375) k/mm3 BMP 12/20/24 05:56 Sodium 131 L Potassium 5.6 H Chloride 101 Carbon Dioxide 19 L BUN 89 H Creatinine 4.93 H Glucose 97 Calcium 7.9 L Cardiac Enzymes 12/20/24 Range/Units 05:56 Total Creatine Kinase 205 H (55-170) U/L Liver Function 12/20/24 Range/Units 05:56 Total Bilirubin 0.7 (0.2-1.3) mg/dL AST 1539 H (17-59) U/L ALT 1066 H (6-50) U/L Alkaline Phosphatase 479 H (38-126) U/L Albumin 2.7 L (3.5-5.1) g/dL
[2024-12-20 16:12] LABS: Osmolality, Urine 324 mOsm/kg (50-1200)
[2024-12-20 16:32] LABS: Glucose Point of Care 106 mg/dl (65-105)
[2024-12-20] MEDS: oxyCODONE HCL (*CRX) 2.5 MG TAB IR PO ×2 (17:07→20:47)
[2024-12-20] MEDS: diphenhydrAMINE HCL ELIXIR 12.5 MG/5 ML UDC PO (17:07)
--- NOTE | 2024-12-20 20:41 | WPDURCON ---
Assessment and Plan Assessment and plan (1) Urinary retention: Code(s): R33.9 - Retention of urine, unspecified Status: Acute Assessment and Plan: Plan for cystoscopy with Hernandez catheter placement. Cysto will be dictated procedure note. Patient has a mild bulbar narrowing which I was able to passively dilate with the cystoscope passage. Sixteen [place] coude placed with 500 cc of return of urine. Recommend leaving catheter in for couple of days prior to a voiding trial. Urology Consult Note HPI Date Seen: 12/20/24 Time Seen: 20:41 Requesting Physician: Tomas Butler MD Primary Care Provider: Amilcar Womack MD Consult Narrative Reason for consult: Urinary retention with failed catheter placement Narrative: Jose Mckinney Jr. is a 64 year old male with multiple medical issues who was admitted for weakness. Patient is actually due to have a liver biopsy in the morning. I was called due to patient having difficulty voiding and some discomfort. He had greater than 400 cc of urine in his bladder. Several attempts were made by the nursing staff unsuccessfully to place a catheter. Patient denies any prior of prostate surgery. Review of Systems Review of Systems: All systems reviewed & are unremarkable except as noted in HPI and below PMFSH Past Medical History Medical History Tobacco dependence Diastolic dysfunction Heart failure with mildly reduced ejection fraction Albuminuria Diabetic peripheral neuropathy Insulin dependent type 2 diabetes mellitus Stage 3b chronic kidney disease Dyslipidemia Peripheral vascular disease Hypothyroidism Essential hypertension Chronic, continuous use of opioids Chronic pain of both shoulders Surgical History Surgical History History of left above knee amputation History of amputation of lesser toe of right foot Family History Family History Father Family history of diabetes mellitus in first degree relative Hypertension Family history of coronary artery disease Mother Family history of diabetes mellitus in first degree relative Sibling Family history of diabetes mellitus in first degree relative Other Diabetes mellitus Family history of cardiovascular disease Social History Social History Social History: Surrogate medical decision maker: Cristal Frye, friend. Code status: Full code. Smoking packs per day: 1.5 Smoking cigarettes per day: 30.0 Years smoked: 50 Smoking pack-years: 75.00 Smoking status: Current every day smoker Tobacco type: cigarettes Second hand tobacco smoke exposure: No Alcohol intake: former Substance use: current Substance use type: marijuana Do You Feel Safe in your Home?: Yes Lack of Transportation: No Lack of Food: Never True Current Housing: I Have Housing Concerned About Future Housing: No Difficulty Paying Gas/Electric Bills: No Difficulty Paying for Meds: No Currently Unemployed: No Education: High School Diploma/GED Difficulty w/ Childcare or Family Care: No Living arrangements: with family Additional living arrangements comments: girlfriend Occupation/Education: other Spiritual care concerns: No Meds Home Medications and Allergies Home Medications ?Medication ?Instructions ?Recorded ?Confirmed ?Type hydrocodone 5 mg-acetaminophen 325 1 tablet PO Q8H PRN pain #60 tabs 04/27/20 12/17/24 Rx mg tablet glucagon 3 mg/actuation nasal 3 mg intranasal ONCE #1 ea 08/06/23 12/17/24 Rx spray (Baqsimi) glucose 4 gram chewable tablet 16 g (4 x 4 gram) PO Q15M PRN 08/06/23 12/17/24 Rx hypoglycemia #300 tabs sertraline 100 mg tablet 100 mg PO DAILY 02/26/24 12/17/24 History metoprolol succinate 50 mg 50 mg PO DAILY 04/01/24 12/17/24 History tablet,extended release 24 hr sacubitril 24 mg-valsartan 26 mg 1 tablet PO BID 04/20/24 12/17/24 History tablet (Entresto) finerenone 10 mg tablet (Kerendia) 10 mg PO DAILY #30 tabs 04/23/24 12/17/24 Rx atorvastatin 80 mg tablet See Rx Instructions .Route 05/14/24 12/17/24 Rx .COMPLEX #90 tabs ezetimibe 10 mg tablet 10 mg PO DAILY #90 tabs 08/05/24 12/17/24 Rx levothyroxine 125 mcg tablet See Rx Instructions .Route 10/08/24 12/17/24 Rx .COMPLEX #180 tabs insulin lispro 100 unit/mL 1 sliding scale dose subcut 10/26/24 12/17/24 Rx subcutaneous solution (Humalog USEASDIRECTD insulin pump #100 mL U-100 Insulin) blood-glucose sensor (Dexcom G7 #9 ea 11/02/24 12/17/24 Rx Sensor device) Allergies Allergy/AdvReac Type Severity Reaction Status Date / Time vancomycin Allergy Severe Anaphylactic Verified 12/18/24 02:25 Shock Vital Signs Vital Signs - 24 hr 12/19/24 22:09 12/20/24 08:00 12/20/24 16:00 Temperature 36.8 C 35.7 C L 35.9 C L Pulse Rate 108 H 104 H 100 Respiratory Rate 18 18 18 Blood Pressure 90/58 L 92/70 L 104/64 Pulse Oximetry 95 98 98 Exam Const: General: cooperative; No comfortable Resp: Effort & Inspection: normal respiratory effort Cardio: Rate: regular rate Rhythm: regular rhythm Results Labs 12/20/24 05:56 12/20/24 05:56 Labs: Short CBC 12/20/24 Range/Units 05:56 WBC 9.6 (4.5-10.0) K/mm3 Hgb 11.3 L (14.0-18.0) g/dL Hct 38.7 L (42.0-52.0) % Plt Count 339 (150-375) k/mm3 BMP 12/20/24 05:56 Sodium 131 L Potassium 5.6 H Chloride 101 Carbon Dioxide 19 L BUN 89 H Creatinine 4.93 H Glucose 97 Calcium 7.9 L Cardiac Enzymes 12/20/24 Range/Units 05:56 Total Creatine Kinase 205 H (55-170) U/L Liver Function 12/20/24 Range/Units 05:56 Total Bilirubin 0.7 (0.2-1.3) mg/dL AST 1539 H (17-59) U/L ALT 1066 H (6-50) U/L Alkaline Phosphatase 479 H (38-126) U/L Albumin 2.7 L (3.5-5.1) g/dL
--- NOTE | 2024-12-20 20:44 | P.OP_ITS ---
Procedure Note - Detailed Date of Procedure 12/20/24 Pre-op Diagnosis Urinary retention Post-op Diagnosis Same Procedure Performed Flexible cystoscopy with passive dilation of mild bulbar narrowing, complex Hernandez catheter placement 16 [place] coude Surgeon Meir Kim MD Anesthesia Local Description of Procedure Patient was prepped and draped in usual sterile fashion at the bedside. Cyst 2% viscous lidocaine was inserted into the urethra. Sixteen [place] scope was inserted. Patient was noted to have some mild bulbar narrowing. I was able to push the scope through this area. It was just distal to the external sphincter. Prostate was not overly obstructive. The bladder itself had 2 to 3+ tra beculation without any evidence of tumors. Superstiff wire was then placed through the cystoscope into the bladder. Sixteen [place] tip catheter was passed over the wire into the bladder. 500 cc return of urine was noted. 10 cc were placed in the balloon. Estimated Blood Loss 0 Urine Output 0 Drains Yes Packing No Pathology None sent Complications No immediate complications Condition Stable Disposition Floor
[2024-12-20] MEDS: LIDOCAINE 2% GEL UROJET 10 ML PKG MUCOUS MEM (20:51)
[2024-12-20 21:35] LABS: Glucose Point of Care 141 mg/dl (65-105)
[2024-12-20 21:45] VITALS: BP 93/60; PULSE 110; RESP 18; TEMP 36.4; O2SAT 97
[2024-12-21] MEDS: diphenhydrAMINE HCL ELIXIR 12.5 MG/5 ML UDC PO ×3 (01:40→21:02)
[2024-12-21] MEDS: oxyCODONE HCL (*CRX) 2.5 MG TAB IR PO ×4 (01:40→21:01)
[2024-12-21 05:00] VITALS: BP 98/59; PULSE 108; RESP 18; TEMP 36.3; O2SAT 98
[2024-12-21 06:02] LABS: Basophils Absolute Auto 0.1 K/mm3 (0.0-0.1); Basophils Percent Auto 0.8 % (0.2-1.2); Eosinophils Absolute Auto 0.4 K/mm3 (0-0.3); Eosinophils Percent Auto 3.8 % (0-4.4); Hematocrit 37.2 % (42.0-52.0); Hemoglobin 11.2 g/dL (14.0-18.0); Immature Granulocyte Absolute 0.09 K/mm3 (0.00-0.031); Immature Granulocyte Percent A 0.9 % (0-0.5); Lymphocytes Absolute Auto 1.63 K/mm3 (0.9-3.2); Lymphocytes Percent Auto 15.9 % (18.3-44.2); Mean Corpuscular HGB Conc 30.1 g/dl (32-36); Mean Platelet Volume 9.5 fl (7.4-10.4); Monocytes Absolute Auto 0.9 K/mm3 (0.1-0.6); Monocytes Percent Auto 8.4 % (2.6-8.5); Neutrophils Absolute Auto 7.2 K/mm3 (1.3-6.7); Neutrophils Percent Auto 70.2 % (45.5-73.1); Nucleated Red Blood Cells Perc 5.4 % (0.0-0.2); Platelet Count Result 332 k/mm3 (150-375); Red Blood Count 4.48 M/mm3 (4.6-6.20); Red Cell Distribution Width 17.9 % (11.5-14.5); White Blood Count 10.3 K/mm3 (4.5-10.0)
[2024-12-21 06:10] LABS: INR 1.7; Prothrombin Time 20.1 Seconds (11.1-14.7)
[2024-12-21] MEDS: LEVOTHYROXINE SODIUM 125 MCG TABLET 250 MCG PO (06:21)
[2024-12-21 06:22] LABS: Albumin Level 2.5 g/dL (3.5-5.1); Alkaline Phosphatase 371 U/L (38-126); Anion Gap 13 mmol/L (4-12); Bilirubin,Total 0.7 mg/dL (0.2-1.3); Blood Urea Nitrogen 100 mg/dL (9-20); Calcium 7.4 mg/dL (8.4-10.2); Carbon Dioxide 18 mmol/L (22-30); Chloride 98 mmol/L (98-107); Estimated CRCL calculation 17 ml/min; Estimated Glomerular Filt Rate 11; Glucose 100 mg/dL (65-110); Magnesium 1.9 mg/dL (1.6-2.3); Potassium 5.7 mmol/L (3.4-5.0); Sodium 129 mmol/L (137-145)
[2024-12-21 07:04] LABS: Alanine Aminotransferase 1112 U/L (6-50); Aspartate Amino Transferase 1249 U/L (17-59)
[2024-12-21 07:36] LABS: Glucose Point of Care 82 mg/dl (65-105)
[2024-12-21] MEDS: SODIUM ZIRCONIUM CYCLOSILICATE 10 GM POWD.PACK PO ×3 (08:56→21:06)
--- NOTE | 2024-12-21 11:08 | P.PNNP_ITS ---
Progress Note: A&P Assessment and Plan (1) Acute kidney injury: Code(s): N17.9 - Acute kidney failure, unspecified Status: Acute Assessment and Plan: * ongoing worsening noted... * as noted on admission * evaluation to date noted: * renal u/s normal * urine eosinophils negative * nephrotic range proteinuria * prerenal urine electrolytes * CPK mildly elevated (but not enought to affect kidney function) * further serologies pending * outpatient evaluation noted - normal complements but hematuria with positive * remains at risk for [employer]/dialysis - possible uremic symptoms? * attempt renal biopsy if able * follow trend of repeat labs and UOP (2) Stage 3b chronic kidney disease: Code(s): N18.32 - Chronic kidney disease, stage 3b Status: Chronic Assessment and Plan: * baseline creatinine runs around 1.7 - 2.3mg/dl * suspected to be secondary to diabetes and hypertension * HOWEVER, positive noted in association with hematuria and nephrotic range proteinuria as well as rise in creatinine to 2.76mg/dl noted on outpatient testing in early Oct 2024 * renal biopsy recommended during office visit with Dr. Britt at that time (but apparently was never done) (3) Pneumonia: Code(s): J18.9 - Pneumonia, unspecified organism Status: Acute Assessment and Plan: * admission CXR with bibasilar infiltrates * mildly elevated WBC but no fevers * on empiric antibiotics * follow culture data (4) Heart failure with mildly reduced ejection fraction: Code(s): I50.22 - Chronic systolic (congestive) heart failure Status: Acute Assessment and Plan: * known history * repeat Echo (12/18) noted: * severely reduced systolic function with EF 25-30% * diastolic dysfunction * mild valvular disease * moderate pulmonary hypertension * CXR with cardiomegaly, bibasilar infiltrates and small pleural effusions * Entresto and diuretics on hold given #1 * follow daily weights and volume status closely * Cardiology following (5) Transaminitis: Code(s): R74.01 - Elevation of levels of liver transaminase levels Status: Deleted Assessment and Plan: * normal earlier in November 2024 * also continues to worsen * hepatitis panel negative * abd US showing cholelithiasis and mildly dilated CBD; liver is normal in appearance * holding statin * Gastroenterology following * follow trend (6) Anemia: Code(s): D64.9 - Anemia, unspecified Status: Acute Assessment and Plan: * related to ELEANOR, CKD, and acute illness * follow trend of H/H * no need for KALI at this time (7) Peripheral vascular disease: Code(s): I73.9 - Peripheral vascular disease, unspecified Status: Acute Assessment and Plan: * known history * on zetia but statin on hold given elevated LFTs * complicated by ongoing smoking * arterial dopplers noted (8) Diabetes mellitus type 2 with complications: Code(s): E11.8 - Type 2 diabetes mellitus with unspecified complications Status: Chronic Assessment and Plan: * follow accu-cheks * glycemic control per hospitalist Given the patient's intermittent confusion, I had a fairly long and lengthy discussion (greater than 20 minutes) with the patient's friend and power of regulatory attorney regarding his worsening renal function in association with hyperkalemia and volume overload. She appeared to voice understanding of the complex situation that the patient is in and I recommended that given his confusion and these worsening renal parameters, the next step would be renal replacement therapy / dialysis. She was in agreement with proceeding with his intervention with the hope that this will improve his renal function or least get them back to the way they were prior to this hospitalization. I discussed the risks, benefits, pros, cons, and the procedure related to dialysis including placement of a temporary dialysis catheter. I will consult surgery for placement of a temporary dialysis catheter and proceed with dialysis once this is in place. Will continue to follow. L Subjective Date/time seen: 12/21/24 11:08 Interval history: Follow-up for acute kidney injury/acute renal failure on chronic kidney disease. Renal function continues to deteriorate with noted fluctuations in potassium level (requiring medical therapy) along worsening mentation as well as liver function testing; fluid status/edema appears to be worsening as well; difficult for me to get the patient to focus on my questions as well. Exam 2 Narrative: General: elderly male in NAD Heart: normal S1 and S2; no rub Lungs: coarse breath sounds Abdomen: obese but soft, nontender, nondistended, positive bowel sounds Extremities: no cyanosis or clubbing; 2+ edema in RLE; s/p left AKA Skin: warm and intact; healing bilateral hand excoriations Objective Data Vital Signs Vital Signs: Vital Signs Temp Pulse Resp BP Pulse Ox 12/21/24 05:00 97.4 F L 108 H 18 98/59 L 98 12/20/24 21:45 97.6 F 110 H 18 93/60 L 97 Intake/Output Intake/Output: Intake & Output 12/18/24 12/19/24 12/20/24 12/21/24 23:59 23:59 23:59 23:59 Intake Total 3205 3610 837 400 Output Total 2280 1450 0 500 Balance 925 2160 837 -100 Meds/Results Medications: Active Medications Generic Name Dose Route Start Last Admin Trade Name Freq PRN Reason Stop Dose Admin Acetaminophen 650 mg 12/17/24 16:18 12/18/24 20:54 Acetaminophen 325 Mg Tablet PO 650 mg Q4H PRN Administration Mild Pain (1-3) or Fever Hydrocodone Bitart/Acetaminophen 1 tab 12/17/24 19:37 12/19/24 15:50 Hydrocodone/Acetaminophen (*Crx) 5-325 Mg Tablet PO 1 tab Q8H PRN Administration pain 4-6 Aspirin 81 mg 12/20/24 08:00 12/21/24 11:13 Aspirin 81 Mg Chewable Tablet PO 81 mg DAILY@0800 REGINA Administration Calcium Carbonate 200 mg 12/18/24 22:39 Calcium Carbonate (Tums) 500 Mg (200 Mg Elemental) PO Q6H PRN Indigestion Dextrose 12.5 gm 12/17/24 22:39 Dextrose 50% 25 Gm/50 Ml Syringe IV PUSH PRN PRN Hypoglycemia Protocol Diphenhydramine HCl 12.5 mg 12/18/24 14:23 12/21/24 13:43 Diphenhydramine Hcl Elixir 12.5 Mg/5 Ml Udc PO 12.5 mg Q6H PRN Administration Itching Doxycycline Hyclate 100 mg 12/17/24 22:45 12/21/24 11:14 Doxycycline Hyclate 100 Mg Tablet PO 12/24/24 09:01 100 mg Q12HR REGINA Administration Ezetimibe 10 mg 12/18/24 09:00 12/21/24 11:14 Ezetimibe 10 Mg Tablet PO 10 mg DAILY REGINA Administration Glucagon 1 mg 12/17/24 22:39 Glucagon For Inj 1 Mg Vial IM PRN PRN Hypoglycemia Protocol Glucose 15 gm 12/17/24 22:39 Glucose Oral Gel 15 Gm Of Glucse In 37.5 Gm Tube PO PRN PRN Hypoglycemia Protocol Heparin Sodium (Porcine) 5,000 units 12/18/24 09:00 12/21/24 17:17 Heparin Sodium 5,000 Units/Ml Vial SUB-Q 5,000 units Q12HR REGINA Administration Dextrose 1,000 mls @ 100 mls/hr 12/17/24 22:39 Dextrose 5% 1,000 Ml IVPB PRN PRN Hypoglycemia Protocol Ceftriaxone Sodium 1 gm in 50 mls @ 100 mls/hr 12/17/24 23:00 12/21/24 01:41 Rocephin 1 Gm/Ns 50 Ml IVPB 12/23/24 23:29 100 mls/hr Q24H REGINA Administration Insulin Aspart 2 - 5 units 12/18/24 11:30 12/21/24 17:35 Insulin Aspart (*Bkc) 100 Units/Ml SUB-Q Not Given ACHS REGINA Protocol Levothyroxine Sodium 250 mcg 12/21/24 06:30 12/21/24 06:21 Levothyroxine Sodium 125 Mcg Tablet PO 250 mcg [id number]@0630 REGINA Administration Levothyroxine Sodium 125 mcg 12/26/24 06:30 Levothyroxine Sodium 125 Mcg Tablet PO Mitchell@0630 REGINA Metoprolol Succinate 50 mg 12/18/24 09:00 12/19/24 09:01 Metoprolol Succinate Ext Rel 50 Mg Tabcr PO 50 mg DAILY REGINA Administration Nicotine 1 patch 12/17/24 22:45 12/21/24 11:14 Nicotine (*Pbkc) 21 Mg Patch TRANSDERM 1 patch DAILY REGINA Administration Ondansetron HCl 4 mg 12/17/24 16:18 12/19/24 21:24 Ondansetron Inj 4 Mg/2 Ml Vial IV PUSH 4 mg Q4H PRN Administration Nausea Oxycodone HCl 2.5 mg 12/20/24 08:52 12/21/24 17:16 Oxycodone Hcl (*Crx) 2.5 Mg Tab Ir PO 2.5 mg Q4H PRN Administration Pain Rated 7-10 Sacubitril/Valsartan 1 tab 12/17/24 21:00 12/18/24 08:25 Sacubitril/Valsartan 24-26 Mg Tablet PO 1 tab Q12HR REGINA Administration Sertraline HCl 100 mg 12/18/24 09:00 12/21/24 11:14 Sertraline Hcl 50 Mg Tablet PO 100 mg DAILY REGINA Administration Sodium Zirconium Cyclosilicate 10 gm 12/21/24 15:00 12/21/24 17:17 Sodium Zirconium Cyclosilicate 10 Gm Powd.Pack PO 10 gm TID@1000,1500,2200 REGINA Administration Radiology Results: ITS Impressions Lumbar Spine X-Ray 12/17/24 15:44 IMPRESSION: Anterior loss of volume of L1 which is most likely chronic. MRI evaluation advised. Otherwise, No acute osseous abnormality lumbar spine. Degenerative disc disease at the level of L4-L5. Venous Doppler Study 12/18/24 13:13 IMPRESSION: 1. No deep venous thrombosis. Abdomen Ultrasound 12/18/24 13:18 IMPRESSION: 1. Cholelithiasis. No evidence of acute cholecystitis. 2. Mildly dilated common duct. Renal Ultrasound 12/18/24 13:21 IMPRESSION: 1. Normal kidney sizes. No hydronephrosis. Lumbar Spine MRI 12/18/24 15:23 IMPRESSION: Limited examination secondary to motion artifact. No abnormal signal intensity or contrast enhancement is identified within the vertebral body of L1 to suggest acute traumatic injury. Within the visualized intervertebral disc spaces, moderate degenerative disease is noted, as detailed above. Duplex Scan Lower Extremity Artery 12/18/24 21:35 IMPRESSION: Abnormal peak systolic velocity and waveform morphology suggesting a popliteal or tibioperoneal trunk stenosis. Three-vessel blood flow into the right calf with single vessel blood flow into the right foot (on the submitted images) Chest X-Ray 12/20/24 06:01 Impression: Small bilateral pleural effusions with mild bibasilar pulmonary edema/atelectasis. MRCP 12/21/24 08:48 IMPRESSION: 1. Study terminated at patient request prior to obtaining the normal complement of sequences including the MRCP images and which along with some motion artifact on the obtained sequences moderately limits evaluation. 2. Anasarca with small left and moderate-sized right pleural effusions, small amount of ascites and extensive body wall, as enteric and retroperitoneal edema. 3. Normal-appearing gallbladder with no evident cholelithiasis and with no intra or extrahepatic biliary ductal dilation. Sensitivity for tiny gallstones which were suggested on prior ultrasound is limited by motion artifact. 4. Cardiomegaly. Labs Labs: Laboratory Tests 12/21/24 05:25 12/21/24 05:25 PT 20.1 H INR 1.7 Calcium 7.4 L Phosphorus 9.0 H Magnesium 1.9 Total Bilirubin 0.7 AST 1249 H ALT 1112 H Alkaline Phosphatase 371 H Total Protein 5.0 L Albumin 2.5 L Microbiology 12/20/24 09:46 Blood Blood Culture - Preliminary 12/20/24 09:57 Blood Blood Culture - Preliminary 12/18/24 03:16 Sputum Sputum Culture - Final Staphylococcus aureus Yeast isolated Attestation Supervising Provider Attestation Discussed with friend and OTONIEL
[2024-12-21] MEDS: ASPIRIN 81 MG CHEWABLE TABLET PO (11:13)
[2024-12-21] MEDS: EZETIMIBE 10 MG TABLET PO (11:14)
[2024-12-21] MEDS: NICOTINE (*PBKC) 21 MG PATCH 1 PATCH TRANSDERM (11:14)
[2024-12-21] MEDS: DOXYCYCLINE HYCLATE 100 MG TABLET PO ×2 (11:14→21:02)
[2024-12-21] MEDS: SERTRALINE HCL 50 MG TABLET 100 MG PO (11:14)
[2024-12-21 11:20] LABS: Glucose Point of Care 80 mg/dl (65-105)
--- NOTE | 2024-12-21 12:42 | WPDGIPROGNO ---
Progress Note: A&P Assessment and Plan (1) Abnormal transaminases: Code(s): R74.8 - Abnormal levels of other serum enzymes Status: Acute Assessment and Plan: Patient with multiple medical problems as stated in yesterday's note. Differential diagnosis is broad, congestive hepatopathy being and main concern. For a liver biopsy is still pending. Per her MRI ruled out gross biliary obstruction, however subtle choledocholithiasis could not be ruled out due to motion artifact. Kidney biopsy is also planned due to severe renal failure which might require dialysis in the short term. Patient also being followed by Nephrology. Subjective Date/time seen: 12/21/24 12:42 Interval history: The patient had a difficult bladder catheterization yesterday, which required the intervention of Urology for cystoscopy. MRI obtained this morning. Exam Narrative: Unchanged fr Objective Data Vital Signs Vital Signs: Vital Signs - 24 hr 12/20/24 16:00 12/20/24 21:45 12/21/24 05:00 Temperature 96.6 F L 97.6 F 97.4 F L Pulse Rate 100 110 H 108 H Respiratory Rate 18 18 18 Blood Pressure 104/64 93/60 L 98/59 L Pulse Oximetry 98 97 98 Intake/Output Intake/Output: Intake & Output 12/18/24 12/19/24 12/20/24 12/21/24 23:59 23:59 23:59 23:59 Intake Total 3205 3610 837 0 Output Total 2280 1450 0 350 Balance 925 2160 837 -350 Meds/Results Medications: Active Medications Generic Name Dose Route Start Last Admin Trade Name Freq PRN Reason Stop Dose Admin Acetaminophen 650 mg 12/17/24 16:18 12/18/24 20:54 Acetaminophen 325 Mg Tablet PO 650 mg Q4H PRN Administration Mild Pain (1-3) or Fever Hydrocodone Bitart/Acetaminophen 1 tab 12/17/24 19:37 12/19/24 15:50 Hydrocodone/Acetaminophen (*Crx) 5-325 Mg Tablet PO 1 tab Q8H PRN Administration pain 4-6 Aspirin 81 mg 12/20/24 08:00 12/21/24 11:13 Aspirin 81 Mg Chewable Tablet PO 81 mg DAILY@0800 REGINA Administration Calcium Carbonate 200 mg 12/18/24 22:39 Calcium Carbonate (Tums) 500 Mg (200 Mg Elemental) PO Q6H PRN Indigestion Dextrose 12.5 gm 12/17/24 22:39 Dextrose 50% 25 Gm/50 Ml Syringe IV PUSH PRN PRN Hypoglycemia Protocol Diphenhydramine HCl 12.5 mg 12/18/24 14:23 12/21/24 01:40 Diphenhydramine Hcl Elixir 12.5 Mg/5 Ml Udc PO 12.5 mg Q6H PRN Administration Itching Doxycycline Hyclate 100 mg 12/17/24 22:45 12/21/24 11:14 Doxycycline Hyclate 100 Mg Tablet PO 100 mg Q12HR REGINA Administration Ezetimibe 10 mg 12/18/24 09:00 12/21/24 11:14 Ezetimibe 10 Mg Tablet PO 10 mg DAILY REGINA Administration Glucagon 1 mg 12/17/24 22:39 Glucagon For Inj 1 Mg Vial IM PRN PRN Hypoglycemia Protocol Glucose 15 gm 12/17/24 22:39 Glucose Oral Gel 15 Gm Of Glucse In 37.5 Gm Tube PO PRN PRN Hypoglycemia Protocol Heparin Sodium (Porcine) 5,000 units 12/18/24 09:00 12/20/24 20:52 Heparin Sodium 5,000 Units/Ml Vial SUB-Q 5,000 units Q12HR REGINA Administration Dextrose 1,000 mls @ 100 mls/hr 12/17/24 22:39 Dextrose 5% 1,000 Ml IVPB PRN PRN Hypoglycemia Protocol Ceftriaxone Sodium 1 gm in 50 mls @ 100 mls/hr 12/17/24 23:00 12/21/24 01:41 Rocephin 1 Gm/Ns 50 Ml IVPB 100 mls/hr Q24H REGINA Administration Insulin Aspart 2 - 5 units 12/18/24 11:30 12/21/24 01:26 Insulin Aspart (*Bkc) 100 Units/Ml SUB-Q Not Given ACHS [facility] Protocol Levothyroxine Sodium 250 mcg 12/21/24 06:30 12/21/24 06:21 Levothyroxine Sodium 125 Mcg Tablet PO 250 mcg [id number]@0630 REGINA Administration Levothyroxine Sodium 125 mcg 12/26/24 06:30 Levothyroxine Sodium 125 Mcg Tablet PO Mitchell@0630 REGINA Metoprolol Succinate 50 mg 12/18/24 09:00 12/19/24 09:01 Metoprolol Succinate Ext Rel 50 Mg Tabcr PO 50 mg DAILY REGINA Administration Nicotine 1 patch 12/17/24 22:45 12/21/24 11:14 Nicotine (*Pbkc) 21 Mg Patch TRANSDERM 1 patch DAILY REGINA Administration Ondansetron HCl 4 mg 12/17/24 16:18 12/19/24 21:24 Ondansetron Inj 4 Mg/2 Ml Vial IV PUSH 4 mg Q4H PRN Administration Nausea Oxycodone HCl 2.5 mg 12/20/24 08:52 12/21/24 11:13 Oxycodone Hcl (*Crx) 2.5 Mg Tab Ir PO 2.5 mg Q4H PRN Administration Pain Rated 7-10 Sacubitril/Valsartan 1 tab 12/17/24 21:00 12/18/24 08:25 Sacubitril/Valsartan 24-26 Mg Tablet PO 1 tab Q12HR REGINA Administration Sertraline HCl 100 mg 12/18/24 09:00 12/21/24 11:14 Sertraline Hcl 50 Mg Tablet PO 100 mg DAILY REGINA Administration Sodium Zirconium Cyclosilicate 10 gm 12/20/24 18:45 12/21/24 08:56 Sodium Zirconium Cyclosilicate 10 Gm Powd.Pack PO 10 gm BID@1000,1800 REGINA Administration Radiology Results: ITS Impressions Lumbar Spine X-Ray 12/17/24 15:44 IMPRESSION: Anterior loss of volume of L1 which is most likely chronic. MRI evaluation advised. Otherwise, No acute osseous abnormality lumbar spine. Degenerative disc disease at the level of L4-L5. Venous Doppler Study 12/18/24 13:13 IMPRESSION: 1. No deep venous thrombosis. Abdomen Ultrasound 12/18/24 13:18 IMPRESSION: 1. Cholelithiasis. No evidence of acute cholecystitis. 2. Mildly dilated common duct. Renal Ultrasound 12/18/24 13:21 IMPRESSION: 1. Normal kidney sizes. No hydronephrosis. Lumbar Spine MRI 12/18/24 15:23 IMPRESSION: Limited examination secondary to motion artifact. No abnormal signal intensity or contrast enhancement is identified within the vertebral body of L1 to suggest acute traumatic injury. Within the visualized intervertebral disc spaces, moderate degenerative disease is noted, as detailed above. Duplex Scan Lower Extremity Artery 12/18/24 21:35 IMPRESSION: Abnormal peak systolic velocity and waveform morphology suggesting a popliteal or tibioperoneal trunk stenosis. Three-vessel blood flow into the right calf with single vessel blood flow into the right foot (on the submitted images) Chest X-Ray 12/20/24 06:01 Impression: Small bilateral pleural effusions with mild bibasilar pulmonary edema/atelectasis. MRCP 12/21/24 08:48 IMPRESSION: 1. Study terminated at patient request prior to obtaining the normal complement of sequences including the MRCP images and which along with some motion artifact on the obtained sequences moderately limits evaluation. 2. Anasarca with small left and moderate-sized right pleural effusions, small amount of ascites and extensive body wall, as enteric and retroperitoneal edema. 3. Normal-appearing gallbladder with no evident cholelithiasis and with no intra or extrahepatic biliary ductal dilation. Sensitivity for tiny gallstones which were suggested on prior ultrasound is limited by motion artifact. 4. Cardiomegaly. Labs Labs: Laboratory Results - last 24 hr 12/17/24 12/18/24 12/20/24 23:07 03:16 16:28 WBC RBC Hgb Hct MCV MCH MCHC RDW Plt Count MPV Immature Gran % (Auto) Neut % (Auto) Lymph % (Auto) [place] % (Auto) Eos % (Auto) Baso % (Auto) Lymph # (Auto) [place] # (Auto) Eos # (Auto) Baso # (Auto) Abs Immat Gran (auto) Absolute Neuts (auto) Absolute Nucleated RBC Nucleated RBC % PT INR Sodium Potassium Chloride Carbon Dioxide Anion Gap BUN Creatinine Estim Creat Clear Calc Estimated GFR Glucose POC Capillary Glucose 106 H Serum Osmolality 309 H Calcium Phosphorus Magnesium Total Bilirubin AST ALT Alkaline Phosphatase Total Protein Albumin Urine Osmolality 324 Tot Complement (CH50) 60 12/20/24 12/21/24 12/21/24 21:27 05:25 07:34 WBC 10.3 H RBC 4.48 L Hgb 11.2 L Hct 37.2 L MCV 83.0 MCH 25.0 L MCHC 30.1 L RDW 17.9 H Plt Count 332 MPV 9.5 Immature Gran % (Auto) 0.9 H Neut % (Auto) 70.2 Lymph % (Auto) 15.9 L [place] % (Auto) 8.4 Eos % (Auto) 3.8 Baso % (Auto) 0.8 Lymph # (Auto) 1.63 [place] # (Auto) 0.9 H Eos # (Auto) 0.4 H Baso # (Auto) 0.1 Abs Immat Gran (auto) 0.09 H Absolute Neuts (auto) 7.2 H Absolute Nucleated RBC 0.550 H Nucleated RBC % 5.4 H PT 20.1 H INR 1.7 Sodium 129 L Potassium 5.7 H Chloride 98 Carbon Dioxide 18 L Anion Gap 13 H BUN 100 H D Creatinine 5.47 H Estim Creat Clear Calc 17 Estimated GFR 11 L Glucose 100 POC Capillary Glucose 141 H 82 Serum Osmolality Calcium 7.4 L Phosphorus 9.0 H Magnesium 1.9 Total Bilirubin 0.7 AST 1249 H ALT 1112 H Alkaline Phosphatase 371 H Total Protein 5.0 L Albumin 2.5 L Urine Osmolality Tot Complement (CH50) 12/21/24 11:07 WBC RBC Hgb Hct MCV MCH MCHC RDW Plt Count MPV Immature Gran % (Auto) Neut % (Auto) Lymph % (Auto) [place] % (Auto) Eos % (Auto) Baso % (Auto) Lymph # (Auto) [place] # (Auto) Eos # (Auto) Baso # (Auto) Abs Immat Gran (auto) Absolute Neuts (auto) Absolute Nucleated RBC Nucleated RBC % PT INR Sodium Potassium Chloride Carbon Dioxide Anion Gap BUN Creatinine Estim Creat Clear Calc Estimated GFR Glucose POC Capillary Glucose 80 Serum Osmolality Calcium Phosphorus Magnesium Total Bilirubin AST ALT Alkaline Phosphatase Total Protein Albumin Urine Osmolality Tot Complement (CH50)
--- NOTE | 2024-12-21 13:37 | P.PNCA_ITS ---
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 Toprol on hold due to soft blood pressure. -Has signs of volume overload on imaging, however, given worsening renal function and likely need for dialysis, recommend volume management via dialysis if that is started. Consider Lasix trial if okay with Renal. Atrial fibrillation -This is a new diagnosis for patient. Will pursue rate control for now. Toprol currently on hold due to soft blood pressure, recommend to resume when blood pressures table. Recommend Eliquis 5mg BID when okay for anticoagulation. Hyperlipidemia -Continue Zetia. Statin on hold due to elevated liver enzymes. ELEANOR on CKD -Renal function continues to worsen. May need dialysis. Renal following. Transaminitis -GI consulted Peripheral vascular disease -Continue Zetia. Statin on hold due to elevated liver enzymes. -Continue ASA. Moderate non-obstructive CAD per [facility] 02/2024 -Continue Zetia. Statin on hold due to elevated liver enzymes. -Continue ASA. Patient is ill with multi-organ involvement. Patient's case discussed with Nephrology, Dr. Kebede. 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 He currently no longer feels weak and denies any chest discomfort shortness of breath. He currently has no complaints. Date of service 12/21: Sleepy at the time of my visit; family at bedside. Renal function worsening. Review of Systems Cardiovascular: Cardiovascular: Reports as per HPI Exam 2 Const: Other: Appears ill Resp: Effort & Inspection: normal respiratory effort Auscultation: diminished lung sounds Cardio: Rhythm: abnormal rhythm irregularly irregular Neuro: Other: Sleepy Psych: Affect: normal affect Objective Data Vital Signs Vital Signs: Vital Signs - 24 hr 12/20/24 16:00 12/20/24 21:45 12/21/24 05:00 Temperature 35.9 C L 36.4 C 36.3 C L Pulse Rate 100 110 H 108 H Respiratory Rate 18 18 18 Blood Pressure 104/64 93/60 L 98/59 L Pulse Oximetry 98 97 98 Intake/Output Intake/Output: Intake & Output 12/18/24 12/19/24 12/20/24 12/21/24 23:59 23:59 23:59 23:59 Intake Total 3205 3610 837 0 Output Total 2280 1450 0 350 Balance 925 2160 837 -350 Meds/Results Medications: Active Medications Generic Name Dose Route Start Last Admin Trade Name Freq PRN Reason Stop Dose Admin Acetaminophen 650 mg 12/17/24 16:18 12/18/24 20:54 Acetaminophen 325 Mg Tablet PO 650 mg Q4H PRN Administration Mild Pain (1-3) or Fever Hydrocodone Bitart/Acetaminophen 1 tab 12/17/24 19:37 12/19/24 15:50 Hydrocodone/Acetaminophen (*Crx) 5-325 Mg Tablet PO 1 tab Q8H PRN Administration pain 4-6 Aspirin 81 mg 12/20/24 08:00 12/21/24 11:13 Aspirin 81 Mg Chewable Tablet PO 81 mg DAILY@0800 REGINA Administration Calcium Carbonate 200 mg 12/18/24 22:39 Calcium Carbonate (Tums) 500 Mg (200 Mg Elemental) PO Q6H PRN Indigestion Dextrose 12.5 gm 12/17/24 22:39 Dextrose 50% 25 Gm/50 Ml Syringe IV PUSH PRN PRN Hypoglycemia Protocol Diphenhydramine HCl 12.5 mg 12/18/24 14:23 12/21/24 01:40 Diphenhydramine Hcl Elixir 12.5 Mg/5 Ml Udc PO 12.5 mg Q6H PRN Administration Itching Doxycycline Hyclate 100 mg 12/17/24 22:45 12/21/24 11:14 Doxycycline Hyclate 100 Mg Tablet PO 100 mg Q12HR REGINA Administration Ezetimibe 10 mg 12/18/24 09:00 12/21/24 11:14 Ezetimibe 10 Mg Tablet PO 10 mg DAILY REGINA Administration Glucagon 1 mg 12/17/24 22:39 Glucagon For Inj 1 Mg Vial IM PRN PRN Hypoglycemia Protocol Glucose 15 gm 12/17/24 22:39 Glucose Oral Gel 15 Gm Of Glucse In 37.5 Gm Tube PO PRN PRN Hypoglycemia Protocol Heparin Sodium (Porcine) 5,000 units 12/18/24 09:00 12/20/24 20:52 Heparin Sodium 5,000 Units/Ml Vial SUB-Q 5,000 units Q12HR REGINA Administration Dextrose 1,000 mls @ 100 mls/hr 12/17/24 22:39 Dextrose 5% 1,000 Ml IVPB PRN PRN Hypoglycemia Protocol Ceftriaxone Sodium 1 gm in 50 mls @ 100 mls/hr 12/17/24 23:00 12/21/24 01:41 Rocephin 1 Gm/Ns 50 Ml IVPB 100 mls/hr Q24H REGINA Administration Insulin Aspart 2 - 5 units 12/18/24 11:30 12/21/24 01:26 Insulin Aspart (*Bkc) 100 Units/Ml SUB-Q Not Given ACHS [facility] Protocol Levothyroxine Sodium 250 mcg 12/21/24 06:30 12/21/24 06:21 Levothyroxine Sodium 125 Mcg Tablet PO 250 mcg MoTuWeThFrSa@0630 REGINA Administration Levothyroxine Sodium 125 mcg 12/26/24 06:30 Levothyroxine Sodium 125 Mcg Tablet PO Mitchell@0630 [facility] Metoprolol Succinate 50 mg 12/18/24 09:00 12/19/24 09:01 Metoprolol Succinate Ext Rel 50 Mg Tabcr PO 50 mg DAILY REGINA Administration Nicotine 1 patch 12/17/24 22:45 12/21/24 11:14 Nicotine (*Pbkc) 21 Mg Patch TRANSDERM 1 patch DAILY REGIN[facility] Administration Ondansetron HCl 4 mg 12/17/24 16:18 12/19/24 21:24 Ondansetron Inj 4 Mg/2 Ml Vial IV PUSH 4 mg Q4H PRN Administration Nausea Oxycodone HCl 2.5 mg 12/20/24 08:52 12/21/24 11:13 Oxycodone Hcl (*Crx) 2.5 Mg Tab Ir PO 2.5 mg Q4H PRN Administration Pain Rated 7-10 Sacubitril/Valsartan 1 tab 12/17/24 21:00 12/18/24 08:25 Sacubitril/Valsartan 24-26 Mg Tablet PO 1 tab Q12HR REGINA Administration Sertraline HCl 100 mg 12/18/24 09:00 12/21/24 11:14 Sertraline Hcl 50 Mg Tablet PO 100 mg DAILY REGINA Administration Sodium Zirconium Cyclosilicate 10 gm 12/20/24 18:45 12/21/24 08:56 Sodium Zirconium Cyclosilicate 10 Gm Powd.Pack PO 10 gm BID@1000,1800 REGINA Administration Radiology Results: ITS Impressions Lumbar Spine X-Ray 12/17/24 15:44 IMPRESSION: Anterior loss of volume of L1 which is most likely chronic. MRI evaluation advised. Otherwise, No acute osseous abnormality lumbar spine. Degenerative disc disease at the level of L4-L5. Venous Doppler Study 12/18/24 13:13 IMPRESSION: 1. No deep venous thrombosis. Abdomen Ultrasound 12/18/24 13:18 IMPRESSION: 1. Cholelithiasis. No evidence of acute cholecystitis. 2. Mildly dilated common duct. Renal Ultrasound 12/18/24 13:21 IMPRESSION: 1. Normal kidney sizes. No hydronephrosis. Lumbar Spine MRI 12/18/24 15:23 IMPRESSION: Limited examination secondary to motion artifact. No abnormal signal intensity or contrast enhancement is identified within the vertebral body of L1 to suggest acute traumatic injury. Within the visualized intervertebral disc spaces, moderate degenerative disease is noted, as detailed above. Duplex Scan Lower Extremity Artery 12/18/24 21:35 IMPRESSION: Abnormal peak systolic velocity and waveform morphology suggesting a popliteal or tibioperoneal trunk stenosis. Three-vessel blood flow into the right calf with single vessel blood flow into the right foot (on the submitted images) Chest X-Ray 12/20/24 06:01 Impression: Small bilateral pleural effusions with mild bibasilar pulmonary edema/atelectasis. MRCP 12/21/24 08:48 IMPRESSION: 1. Study terminated at patient request prior to obtaining the normal complement of sequences including the MRCP images and which along with some motion artifact on the obtained sequences moderately limits evaluation. 2. Anasarca with small left and moderate-sized right pleural effusions, small amount of ascites and extensive body wall, as enteric and retroperitoneal edema. 3. Normal-appearing gallbladder with no evident cholelithiasis and with no intra or extrahepatic biliary ductal dilation. Sensitivity for tiny gallstones which were suggested on prior ultrasound is limited by motion artifact. 4. Cardiomegaly. Labs Labs: Laboratory Results - last 24 hr 12/17/24 12/18/24 12/20/24 23:07 03:16 16:28 WBC RBC Hgb Hct MCV MCH MCHC RDW Plt Count MPV Immature Gran % (Auto) Neut % (Auto) Lymph % (Auto) [place] % (Auto) Eos % (Auto) Baso % (Auto) Lymph # (Auto) [place] # (Auto) Eos # (Auto) Baso # (Auto) Abs Immat Gran (auto) Absolute Neuts (auto) Absolute Nucleated RBC Nucleated RBC % PT INR Sodium Potassium Chloride Carbon Dioxide Anion Gap BUN Creatinine Estim Creat Clear Calc Estimated GFR Glucose POC Capillary Glucose 106 H Serum Osmolality 309 H Calcium Phosphorus Magnesium Total Bilirubin AST ALT Alkaline Phosphatase Total Protein Albumin Urine Osmolality 324 Tot Complement (CH50) 60 12/20/24 12/21/24 12/21/24 21:27 05:25 07:34 WBC 10.3 H RBC 4.48 L Hgb 11.2 L Hct 37.2 L MCV 83.0 MCH 25.0 L MCHC 30.1 L RDW 17.9 H Plt Count 332 MPV 9.5 Immature Gran % (Auto) 0.9 H Neut % (Auto) 70.2 Lymph % (Auto) 15.9 L [place] % (Auto) 8.4 Eos % (Auto) 3.8 Baso % (Auto) 0.8 Lymph # (Auto) 1.63 [place] # (Auto) 0.9 H Eos # (Auto) 0.4 H Baso # (Auto) 0.1 Abs Immat Gran (auto) 0.09 H Absolute Neuts (auto) 7.2 H Absolute Nucleated RBC 0.550 H Nucleated RBC % 5.4 H PT 20.1 H INR 1.7 Sodium 129 L Potassium 5.7 H Chloride 98 Carbon Dioxide 18 L Anion Gap 13 H BUN 100 H D Creatinine 5.47 H Estim Creat Clear Calc 17 Estimated GFR 11 L Glucose 100 POC Capillary Glucose 141 H 82 Serum Osmolality Calcium 7.4 L Phosphorus 9.0 H Magnesium 1.9 Total Bilirubin 0.7 AST 1249 H ALT 1112 H Alkaline Phosphatase 371 H Total Protein 5.0 L Albumin 2.5 L Urine Osmolality Tot Complement (CH50) 12/21/24 11:07 WBC RBC Hgb Hct MCV MCH MCHC RDW Plt Count MPV Immature Gran % (Auto) Neut % (Auto) Lymph % (Auto) [place] % (Auto) Eos % (Auto) Baso % (Auto) Lymph # (Auto) [place] # (Auto) Eos # (Auto) Baso # (Auto) Abs Immat Gran (auto) Absolute Neuts (auto) Absolute Nucleated RBC Nucleated RBC % PT INR Sodium Potassium Chloride Carbon Dioxide Anion Gap BUN Creatinine Estim Creat Clear Calc Estimated GFR Glucose POC Capillary Glucose 80 Serum Osmolality Calcium Phosphorus Magnesium Total Bilirubin AST ALT Alkaline Phosphatase Total Protein Albumin Urine Osmolality Tot Complement (CH50)
[2024-12-21 14:46] VITALS: BP 99/74; PULSE 111; RESP 18; TEMP 36.3; O2SAT 99
--- NOTE | 2024-12-21 15:01 | PM.IMPN ---
Progress Note: A&P Assessment and Plan (1) Transaminitis: Code(s): R74.01 - Elevation of levels of liver transaminase levels Status: Deleted Assessment and Plan: On admission, AST 215 and ALT 201. AP 340 with normal bili. Levels normal earlier this month. Hepatitis panel negative. Abd US showing cholelithiasis and mildly dilated CBD. Liver is normal in appearance. Related to statin therapy? Lipitor held. Repeat levels on 12/20 much worse with AST 1539, ALT 1066, AP 479, normal bili. Lactic acid 1.1. Acet level <10 Consider related to hepatic congestion from IV fluids and/or HoTN. Consider sepsis or from leg ischemia. Consider autoimmune with + IV fluids stopped. GI consulted and appreciate their input. AST better. Unable to get MRCP today. Liver biopsy planned. Follow (2) Acute on chronic kidney failure: Code(s): N17.9 - Acute kidney failure, unspecified; N18.9 - Chronic kidney disease, unspecified Status: Acute Assessment and Plan: Patient presents with weakness and may have underlying PNA. Cr on admission 4.3. Baseline Cr 2.1-2.9 range. He was started on IV fluids. Urine eos negative. Eve 42. Total CK 371. Urine prot/Cr 4.7gm consistent with nephrotic syndrome. Complement normal. Hx of + 1:640. Renal US normal. Nephrology consulted and appreciate their input. Cryoglobulin pending. Phos 6.5. Cr up to 5.5 with BUN 100. Potassium up to 5.6 with non-gap metabolic acidosis. Phos remains elevated Entresto remains on hold. Consider HD for fluid overload. Renal biopsy planned (3) Pneumonia: Code(s): J18.9 - Pneumonia, unspecified organism Status: Acute Assessment and Plan: Patient presents with weakness after having cold and cough symptoms for 3 weeks. No benefit after 2 Z-packs. CXR showing bibasilar infiltrates. No fevers or hypoxia. WBC 12K. He was started on Rocephin and Doxycycline. WBC normal now. BCx NGTD. MRSA screen negative. Urine Ag pending. Sputum Cx growing MSSA and yeast. Abx to complete a 7 day course. (4) Heart failure with mildly reduced ejection fraction: Code(s): I50.22 - Chronic systolic (congestive) heart failure Status: Acute Assessment and Plan: Echo showing severely reduced systolic fxn with EF 25-30% with diastolic dysfunction, mild valve disease and moderate pulmonary HTN. BNP >30K. CXR showing CMG, bibasilar infiltrates and small pleural effusions. Entresto and finerenone on hold. Diuretics not listed on home med list. Eve 42 so suspect good renal perfusion. Was on IV fluids but now stopped . Fluid balance +4L. Hold Toprol XL. Monitor UOP, renal fxn, daily weights and fluid balance (5) Diabetes mellitus type 2 with complications: Code(s): E11.8 - Type 2 diabetes mellitus with unspecified complications Status: Chronic Assessment and Plan: A1c 7%. The patient's blood glucose was reviewed Patient was on an insulin pump at home. Concern patient was unable to handle his pump here so this was held. Glucose remains well controlled off the insulin pump. He is eating some Continue AccuCheks covering with sliding scale. Hypoglycemia protocol available as needed. Continue to monitor (6) Peripheral vascular disease: Code(s): I73.9 - Peripheral vascular disease, unspecified Status: Acute Assessment and Plan: Patient with known PAD. Venous doppler RLE negative for DVT. Arterial doppler RLE suggestive of a popliteal or tibioperoneal trunk stenosis. There is three-vessel blood flow into the right calf with single vessel blood flow into the right foot. Continue Zetia and ASA. Resume Lipitor when able. (7) Hypothyroidism: Code(s): E03.9 - Hypothyroidism, unspecified Status: Acute Assessment and Plan: Review of Endocrine note from 11/12 showing he was to skip the Friday Synthroid dose. TSH is 46.4. Free T4 is low-normal at 0.96. Total T3 is 0.5. Patient is on 250 mcg daily of Synthroid. Suspect the skipped dose has resulted in the change in his thyroid panel. Will adjust to 250mcg daily except 125mcg on Sundays. (8) Tobacco dependence: Code(s): F17.200 - Nicotine dependence, unspecified, uncomplicated Status: Acute Assessment and Plan: Patient was educated about the benefits of smoking cessation Plan Low back pain - Lumbar MRI performed but no acute finding seen on limited imaging due to motion artifact. DVT prophylaxis - Heparin Code status - full Subjective Date/time seen: 12/21/24 15:01 Interval history: 64yo male smoker with hx of TIA, CHF, HTN CKD, DM with PN, status post left [id number] amputation related to infection Charcot foot, and hypothyroidism who presented to the emergency department via private vehicle with complaints of weakness and overall not feeling well. Urology contacted last night due to urine retention and Hernandez placed. Patienit having pain at the insertion today. No CP or SOB. Feels tired today. Exam Narrative: AF 97.3 99/74 111 18 99% ra Gen - NARD Chest - bibasilar crackles, nml RR CV - RRR S1/S2 Abd - Soft, obese, NT, flank edema noted - Hernandez secured draining martinez colored urine. Scrotum in enlarged Ext - Left AKA. indurated pitting RLE pedal edema that is cool to touch Psych - Nml mood and affect Skin - Warm and dry. multiple wounds bilateral hands in varius stages of healing with right deep wound overlying the 4th MCP with tendon exposed. RLE reddish-purplish discoloration Objective Data Vital Signs Vital Signs: Vital Signs - 24 hr 12/20/24 16:00 12/20/24 21:45 12/21/24 05:00 Temperature 96.6 F L 97.6 F 97.4 F L Pulse Rate 100 110 H 108 H Respiratory Rate 18 18 18 Blood Pressure 104/64 93/60 L 98/59 L Pulse Oximetry 98 97 98 12/21/24 14:46 Temperature 97.3 F L Pulse Rate 111 H Respiratory Rate 18 Blood Pressure 99/74 L Pulse Oximetry 99 Intake/Output Intake/Output: Intake & Output 12/18/24 12/19/24 12/20/24 12/21/24 23:59 23:59 23:59 23:59 Intake Total 3205 3610 837 0 Output Total 2280 1450 0 350 Balance 925 2160 837 -350 Meds/Results Medications: Active Medications Generic Name Dose Route Start Last Admin Trade Name Freq PRN Reason Stop Dose Admin Acetaminophen 650 mg 12/17/24 16:18 12/18/24 20:54 Acetaminophen 325 Mg Tablet PO 650 mg Q4H PRN Administration Mild Pain (1-3) or Fever Hydrocodone Bitart/Acetaminophen 1 tab 12/17/24 19:37 12/19/24 15:50 Hydrocodone/Acetaminophen (*Crx) 5-325 Mg Tablet PO 1 tab Q8H PRN Administration pain 4-6 Aspirin 81 mg 12/20/24 08:00 12/21/24 11:13 Aspirin 81 Mg Chewable Tablet PO 81 mg DAILY@0800 REGINA Administration Calcium Carbonate 200 mg 12/18/24 22:39 Calcium Carbonate (Tums) 500 Mg (200 Mg Elemental) PO Q6H PRN Indigestion Dextrose 12.5 gm 12/17/24 22:39 Dextrose 50% 25 Gm/50 Ml Syringe IV PUSH PRN PRN Hypoglycemia Protocol Diphenhydramine HCl 12.5 mg 12/18/24 14:23 12/21/24 13:43 Diphenhydramine Hcl Elixir 12.5 Mg/5 Ml Udc PO 12.5 mg Q6H PRN Administration Itching Doxycycline Hyclate 100 mg 12/17/24 22:45 12/21/24 11:14 Doxycycline Hyclate 100 Mg Tablet PO 100 mg Q12HR REGINA Administration Ezetimibe 10 mg 12/18/24 09:00 12/21/24 11:14 Ezetimibe 10 Mg Tablet PO 10 mg DAILY REGINA Administration Glucagon 1 mg 12/17/24 22:39 Glucagon For Inj 1 Mg Vial IM PRN PRN Hypoglycemia Protocol Glucose 15 gm 12/17/24 22:39 Glucose Oral Gel 15 Gm Of Glucse In 37.5 Gm Tube PO PRN PRN Hypoglycemia Protocol Heparin Sodium (Porcine) 5,000 units 12/18/24 09:00 12/20/24 20:52 Heparin Sodium 5,000 Units/Ml Vial SUB-Q 5,000 units Q12HR REGINA Administration Dextrose 1,000 mls @ 100 mls/hr 12/17/24 22:39 Dextrose 5% 1,000 Ml IVPB PRN PRN Hypoglycemia Protocol Ceftriaxone Sodium 1 gm in 50 mls @ 100 mls/hr 12/17/24 23:00 12/21/24 01:41 Rocephin 1 Gm/Ns 50 Ml IVPB 100 mls/hr Q24H REGINA Administration Insulin Aspart 2 - 5 units 12/18/24 11:30 12/21/24 01:26 Insulin Aspart (*Bkc) 100 Units/Ml SUB-Q Not Given ACHS [facility] Protocol Levothyroxine Sodium 250 mcg 12/21/24 06:30 12/21/24 06:21 Levothyroxine Sodium 125 Mcg Tablet PO 250 mcg MoTuWeThFrSa@0630 [facility] Administration Levothyroxine Sodium 125 mcg 12/26/24 06:30 Levothyroxine Sodium 125 Mcg Tablet PO Mitchell@0630 [facility] Metoprolol Succinate 50 mg 12/18/24 09:00 12/19/24 09:01 Metoprolol Succinate Ext Rel 50 Mg Tabcr PO 50 mg DAILY [facility] Administration Nicotine 1 patch 12/17/24 22:45 12/21/24 11:14 Nicotine (*Pbkc) 21 Mg Patch TRANSDERM 1 patch DAILY [facility] Administration Ondansetron HCl 4 mg 12/17/24 16:18 12/19/24 21:24 Ondansetron Inj 4 Mg/2 Ml Vial IV PUSH 4 mg Q4H PRN Administration Nausea Oxycodone HCl 2.5 mg 12/20/24 08:52 12/21/24 11:13 Oxycodone Hcl (*Crx) 2.5 Mg Tab Ir PO 2.5 mg Q4H PRN Administration Pain Rated 7-10 Sacubitril/Valsartan 1 tab 12/17/24 21:00 12/18/24 08:25 Sacubitril/Valsartan 24-26 Mg Tablet PO 1 tab Q12HR [facility] Administration Sertraline HCl 100 mg 12/18/24 09:00 12/21/24 11:14 Sertraline Hcl 50 Mg Tablet PO 100 mg DAILY [facility] Administration Sodium Zirconium Cyclosilicate 10 gm 12/21/24 15:00 Sodium Zirconium Cyclosilicate 10 Gm Powd.Pack PO TID@1000,1500,2200 [facility] Radiology Results: ITS Impressions Lumbar Spine X-Ray 12/17/24 15:44 IMPRESSION: Anterior loss of volume of L1 which is most likely chronic. MRI evaluation advised. Otherwise, No acute osseous abnormality lumbar spine. Degenerative disc disease at the level of L4-L5. Venous Doppler Study 12/18/24 13:13 IMPRESSION: 1. No deep venous thrombosis. Abdomen Ultrasound 12/18/24 13:18 IMPRESSION: 1. Cholelithiasis. No evidence of acute cholecystitis. 2. Mildly dilated common duct. Renal Ultrasound 12/18/24 13:21 IMPRESSION: 1. Normal kidney sizes. No hydronephrosis. Lumbar Spine MRI 12/18/24 15:23 IMPRESSION: Limited examination secondary to motion artifact. No abnormal signal intensity or contrast enhancement is identified within the vertebral body of L1 to suggest acute traumatic injury. Within the visualized intervertebral disc spaces, moderate degenerative disease is noted, as detailed above. Duplex Scan Lower Extremity Artery 12/18/24 21:35 IMPRESSION: Abnormal peak systolic velocity and waveform morphology suggesting a popliteal or tibioperoneal trunk stenosis. Three-vessel blood flow into the right calf with single vessel blood flow into the right foot (on the submitted images) Chest X-Ray 12/20/24 06:01 Impression: Small bilateral pleural effusions with mild bibasilar pulmonary edema/atelectasis. MRCP 12/21/24 08:48 IMPRESSION: 1. Study terminated at patient request prior to obtaining the normal complement of sequences including the MRCP images and which along with some motion artifact on the obtained sequences moderately limits evaluation. 2. Anasarca with small left and moderate-sized right pleural effusions, small amount of ascites and extensive body wall, as enteric and retroperitoneal edema. 3. Normal-appearing gallbladder with no evident cholelithiasis and with no intra or extrahepatic biliary ductal dilation. Sensitivity for tiny gallstones which were suggested on prior ultrasound is limited by motion artifact. 4. Cardiomegaly. Labs Labs: Laboratory Results - last 24 hr 12/17/24 12/18/24 12/20/24 23:07 03:16 16:28 WBC RBC Hgb Hct MCV MCH MCHC RDW Plt Count MPV Immature Gran % (Auto) Neut % (Auto) Lymph % (Auto) [place] % (Auto) Eos % (Auto) Baso % (Auto) Lymph # (Auto) [place] # (Auto) Eos # (Auto) Baso # (Auto) Abs Immat Gran (auto) Absolute Neuts (auto) Absolute Nucleated RBC Nucleated RBC % PT INR Sodium Potassium Chloride Carbon Dioxide Anion Gap BUN Creatinine Estim Creat Clear Calc Estimated GFR Glucose POC Capillary Glucose 106 H Serum Osmolality 309 H Calcium Phosphorus Magnesium Total Bilirubin AST ALT Alkaline Phosphatase Total Protein Albumin Urine Osmolality 324 12/20/24 12/21/24 12/21/24 21:27 05:25 07:34 WBC 10.3 H RBC 4.48 L Hgb 11.2 L Hct 37.2 L MCV 83.0 MCH 25.0 L MCHC 30.1 L RDW 17.9 H Plt Count 332 MPV 9.5 Immature Gran % (Auto) 0.9 H Neut % (Auto) 70.2 Lymph % (Auto) 15.9 L [place] % (Auto) 8.4 Eos % (Auto) 3.8 Baso % (Auto) 0.8 Lymph # (Auto) 1.63 [place] # (Auto) 0.9 H Eos # (Auto) 0.4 H Baso # (Auto) 0.1 Abs Immat Gran (auto) 0.09 H Absolute Neuts (auto) 7.2 H Absolute Nucleated RBC 0.550 H Nucleated RBC % 5.4 H PT 20.1 H INR 1.7 Sodium 129 L Potassium 5.7 H Chloride 98 Carbon Dioxide 18 L Anion Gap 13 H BUN 100 H D Creatinine 5.47 H Estim Creat Clear Calc 17 Estimated GFR 11 L Glucose 100 POC Capillary Glucose 141 H 82 Serum Osmolality Calcium 7.4 L Phosphorus 9.0 H Magnesium 1.9 Total Bilirubin 0.7 AST 1249 H ALT 1112 H Alkaline Phosphatase 371 H Total Protein 5.0 L Albumin 2.5 L Urine Osmolality 12/21/24 11:07 WBC RBC Hgb Hct MCV MCH MCHC RDW Plt Count MPV Immature Gran % (Auto) Neut % (Auto) Lymph % (Auto) [place] % (Auto) Eos % (Auto) Baso % (Auto) Lymph # (Auto) [place] # (Auto) Eos # (Auto) Baso # (Auto) Abs Immat Gran (auto) Absolute Neuts (auto) Absolute Nucleated RBC Nucleated RBC % PT INR Sodium Potassium Chloride Carbon Dioxide Anion Gap BUN Creatinine Estim Creat Clear Calc Estimated GFR Glucose POC Capillary Glucose 80 Serum Osmolality Calcium Phosphorus Magnesium Total Bilirubin AST ALT Alkaline Phosphatase Total Protein Albumin Urine Osmolality
[2024-12-21 16:15] LABS: Glucose Point of Care 113 mg/dl (65-105)
[2024-12-21] MEDS: HEPARIN SODIUM 5,000 UNITS/ML VIAL 5000 UNITS SUB-Q ×2 (17:17→21:01)
[2024-12-21 20:00] VITALS: PULSE 113
[2024-12-21 20:08] LABS: Glucose Point of Care 135 mg/dl (65-105)
[2024-12-21 20:59] VITALS: BP 101/66; PULSE 112; RESP 16; TEMP 36.5; O2SAT 96
[2024-12-21 23:58] LABS: Legionella pneumophila Ag Ur NOT DETECTED
[2024-12-22] VITALS (25 sets, daily range): BP systolic 99–129; BP diastolic 46–87; PULSE 98–119; RESP 14–16; TEMP 36.2–37.3; O2SAT 93–100
[2024-12-22] MEDS: PHYTONADIONE 5 MG TABLET 10 MG PO (00:38)
[2024-12-22 01:14] LABS: Sodium Urine Random 21 meq/L
[2024-12-22] MEDS: oxyCODONE HCL (*CRX) 2.5 MG TAB IR PO (04:38)
[2024-12-22 05:45] LABS: Basophils Percent Auto 0.3 % (0.2-1.2); Eosinophils Absolute Auto 0.6 K/mm3 (0-0.3); Eosinophils Percent Auto 5.6 % (0-4.4); Hematocrit 37.5 % (42.0-52.0); Hemoglobin 11.5 g/dL (14.0-18.0); Immature Granulocyte Absolute 0.09 K/mm3 (0.00-0.031); Immature Granulocyte Percent A 0.9 % (0-0.5); Lymphocytes Absolute Auto 1.12 K/mm3 (0.9-3.2); Lymphocytes Percent Auto 11.5 % (18.3-44.2); Mean Corpuscular HGB Conc 30.7 g/dl (32-36); Mean Corpuscular Hemoglobin 25.1 pg (26-34); Mean Corpuscular Volume 81.9 fl (80-100); Mean Platelet Volume 9.4 fl (7.4-10.4); Monocytes Absolute Auto 0.6 K/mm3 (0.1-0.6); Monocytes Percent Auto 6.3 % (2.6-8.5); Neutrophils Absolute Auto 7.4 K/mm3 (1.3-6.7); Neutrophils Percent Auto 75.4 % (45.5-73.1); Nucleated Red Blood Cells Perc 2.3 % (0.0-0.2); Platelet Count Result 259 k/mm3 (150-375); Red Blood Count 4.58 M/mm3 (4.6-6.20); Red Cell Distribution Width 18.6 % (11.5-14.5); White Blood Count 9.8 K/mm3 (4.5-10.0)
[2024-12-22 05:59] LABS: Ammonia < 9 umol/L (9-30)
[2024-12-22 06:01] LABS: INR 1.6; Prothrombin Time 19.7 Seconds (11.1-14.7)
[2024-12-22 06:08] LABS: Alanine Aminotransferase 970 U/L (6-50); Albumin Level 2.6 g/dL (3.5-5.1); Alkaline Phosphatase 360 U/L (38-126); Anion Gap 15 mmol/L (4-12); Aspartate Amino Transferase 693 U/L (17-59); Bilirubin,Total 0.7 mg/dL (0.2-1.3); Blood Urea Nitrogen 101 mg/dL (9-20); Calcium 7.3 mg/dL (8.4-10.2); Carbon Dioxide 17 mmol/L (22-30); Chloride 97 mmol/L (98-107); Estimated CRCL calculation 17 ml/min; Estimated Glomerular Filt Rate 10; Glucose 111 mg/dL (65-110); Magnesium 1.9 mg/dL (1.6-2.3); Phosphorus 9.2 mg/dL (2.5-4.5); Sodium 129 mmol/L (137-145)
[2024-12-22 06:29] LABS: Hepatitis B Surface Antigen Negative (Negative)
[2024-12-22] MEDS: LEVOTHYROXINE SODIUM 125 MCG TABLET 250 MCG PO (06:42)
[2024-12-22 06:47] LABS: Hepatitis B Surface Anti Res Negative
--- NOTE | 2024-12-22 08:04 | P.CONGS_ITS ---
Assessment and Plan Assessment and plan (1) Acute on chronic kidney failure: Code(s): N17.9 - Acute kidney failure, unspecified; N18.9 - Chronic kidney disease, unspecified Status: Acute Assessment and Plan: He presented with acute on chronic renal failure. Necrology has been following and has now consulted our service for placement of a temporary dialysis catheter for hemodialysis. Description of the procedure, risks, benefits, alternatives, and expected outcomes were discussed. We will plan to proceed with insertion temporary Jeff dialysis catheter at the bedside today. (2) Pneumonia: Code(s): J18.9 - Pneumonia, unspecified organism Status: Acute (3) Heart failure with mildly reduced ejection fraction: Code(s): I50.22 - Chronic systolic (congestive) heart failure Status: Acute (4) Insulin dependent type 2 diabetes mellitus: Code(s): E11.9 - Type 2 diabetes mellitus without complications; Z79.4 - buttermaker helper (current) use of insulin Status: Acute (5) Peripheral vascular disease: Code(s): I73.9 - Peripheral vascular disease, unspecified Status: Acute Plan I have discussed the patient's case and plan of care with Dr. Ham. History of Present Illness Consult details Consult date: 12/22/24 Reason for consult: other (Placement of temporary dialysis catheter for hemodialysis) Requesting physician: Aime Kebede MD Narrative: This is a 64-year-old man with chronic kidney disease, IDDM, and multiple other medical problems, who was brought into the ED on 12/17/24 for weakness and admitted with acute on chronic renal failure, pneumonia, and transaminitis. He has also been treated for urinary retention. Nephrology has been following the patient is felt to have nephrotic syndrome. His renal function continues to decline. His potassium has gone up and he has become more acidotic. Renal and liver biopsies are ordered. Our service is consulted now by Nephrology for placement of temporary dialysis catheter for hemodialysis. His potassium has come down to 5.0 after receiving Lokelma. BUN 101 and creatinine 5.67. Review of Systems 2 Review of Systems: ROS unobtainable: Yes unobtainable due to mental status PMFSH Past Medical History Medical History Tobacco dependence Diastolic dysfunction Heart failure with mildly reduced ejection fraction Albuminuria Diabetic peripheral neuropathy Insulin dependent type 2 diabetes mellitus Stage 3b chronic kidney disease Dyslipidemia Peripheral vascular disease Hypothyroidism Essential hypertension Chronic, continuous use of opioids Chronic pain of both shoulders Surgical History Surgical History History of left above knee amputation History of amputation of lesser toe of right foot Family History Family History Father Family history of diabetes mellitus in first degree relative Hypertension Family history of coronary artery disease Mother Family history of diabetes mellitus in first degree relative Sibling Family history of diabetes mellitus in first degree relative Other Diabetes mellitus Family history of cardiovascular disease Social History Social History Social History: Surrogate medical decision maker: Cristal Frye, friend. Code status: Full code. Smoking packs per day: 1.5 Smoking cigarettes per day: 30.0 Years smoked: 50 Smoking pack-years: 75.00 Smoking status: Current every day smoker Tobacco type: cigarettes Second hand tobacco smoke exposure: No Alcohol intake: former Substance use: current Substance use type: marijuana Do You Feel Safe in your Home?: Yes Lack of Transportation: No Lack of Food: Never True Current Housing: I Have Housing Concerned About Future Housing: No Difficulty Paying Gas/Electric Bills: No Difficulty Paying for Meds: No Currently Unemployed: No Education: High School Diploma/GED Difficulty w/ Childcare or Family Care: No Living arrangements: with family Additional living arrangements comments: girlfriend Occupation/Education: other Spiritual care concerns: No Meds Home Medications and Allergies Home Medications ?Medication ?Instructions ?Recorded ?Confirmed ?Type hydrocodone 5 mg-acetaminophen 325 1 tablet PO Q8H PRN pain #60 tabs 04/27/20 12/17/24 Rx mg tablet glucagon 3 mg/actuation nasal 3 mg intranasal ONCE #1 ea 08/06/23 12/17/24 Rx spray (Baqsimi) glucose 4 gram chewable tablet 16 g (4 x 4 gram) PO Q15M PRN 08/06/23 12/17/24 Rx hypoglycemia #300 tabs sertraline 100 mg tablet 100 mg PO DAILY 02/26/24 12/17/24 History metoprolol succinate 50 mg 50 mg PO DAILY 04/01/24 12/17/24 History tablet,extended release 24 hr sacubitril 24 mg-valsartan 26 mg 1 tablet PO BID 04/20/24 12/17/24 History tablet (Entresto) finerenone 10 mg tablet (Kerendia) 10 mg PO DAILY #30 tabs 04/23/24 12/17/24 Rx atorvastatin 80 mg tablet See Rx Instructions .Route 05/14/24 12/17/24 Rx .COMPLEX #90 tabs ezetimibe 10 mg tablet 10 mg PO DAILY #90 tabs 08/05/24 12/17/24 Rx levothyroxine 125 mcg tablet See Rx Instructions .Route 10/08/24 12/17/24 Rx .COMPLEX #180 tabs insulin lispro 100 unit/mL 1 sliding scale dose subcut 10/26/24 12/17/24 Rx subcutaneous solution (Humalog USEASDIRECTD insulin pump #100 mL U-100 Insulin) blood-glucose sensor (Dexcom G7 #9 ea 11/02/24 12/17/24 Rx Sensor device) Allergies Allergy/AdvReac Type Severity Reaction Status Date / Time vancomycin Allergy Severe Anaphylactic Verified 12/18/24 02:25 Shock Vital Signs Vital Signs - 24 hr 12/21/24 14:46 12/21/24 20:00 12/21/24 20:59 Temperature 97.3 F L 97.7 F Pulse Rate 111 H 113 H 112 H Respiratory Rate 18 16 Blood Pressure 99/74 L 101/66 Pulse Oximetry 99 96 12/22/24 00:00 12/22/24 04:00 12/22/24 05:48 Temperature 97.5 F L Pulse Rate 98 98 112 H Respiratory Rate 16 Blood Pressure 109/66 Pulse Oximetry 100 Exam 2 Const: General: no acute distress and ill appearing Nutritional Appearance: average body habitus Orientation/consciousness: patient oriented x3 (answers orientation questions but somewhat confused) HENMT: Head: normocephalic and atraumatic Eyes: General: appearance normal, both eyes and all related structures P upils: Equal, round and reactive pupils present Neck: Neck: normal visual inspection and full ROM Resp: Effort & Inspection: no respiratory distress Auscultation: clear to auscultation bilaterally Cardio: Rate: regular rate Rhythm: regular rhythm GI: Inspection: Abdominal wall edema, non-distended and obesity GI Palp: Y es Soft to palpation, No Tenderness to palpation present (GI), No Guarding due to palpation present (GI) and No Rebound tenderness present Auscultation: n ormal bowel sounds : Scrotum: erythematous diffuse Urinary Catheter: Urinary Catheter: patent and draining and urine dark Skin: General skin exam: normal color Neuro: General: moves all extremities and no focal motor deficits Extrem: General: amputation noted Above the knee: left and edema right Psych: Attitude: cooperative Insight: Fair insight present (Psych) J udgement: Fair judgement present (Psych) Results Labs 12/22/24 05:37 12/22/24 05:37 Labs: Abnormal lab results 12/21/24 12/21/24 12/22/24 Range/Units 16:12 19:59 05:37 RBC 4.58 L (4.6-6.20) M/mm3 Hgb 11.5 L (14.0-18.0) g/dL Hct 37.5 L (42.0-52.0) % MCH 25.1 L (26-34) pg MCHC 30.7 L (32-36) g/dl RDW 18.6 H (11.5-14.5) % Immature Gran % (Auto) 0.9 H (0-0.5) % Neut % (Auto) 75.4 H (45.5-73.1) % Lymph % (Auto) 11.5 L (18.3-44.2) % Eos % (Auto) 5.6 H (0-4.4) % Eos # (Auto) 0.6 H (0-0.3) K/mm3 Abs Immat Gran (auto) 0.09 H (0.00-0.031) K/mm3 Absolute Neuts (auto) 7.4 H (1.3-6.7) K/mm3 Absolute Nucleated RBC 0.220 H (0.0-0.012) K/mm3 Nucleated RBC % 2.3 H (0.0-0.2) % PT 19.7 H (11.1-14.7) Seconds Sodium 129 L (137-145) mmol/L Chloride 97 L (98-107) mmol/L Carbon Dioxide 17 L (22-30) mmol/L Anion Gap 15 H (4-12) mmol/L BUN 101 H (9-20) mg/dL Creatinine 5.67 H (0.7-1.3) mg/dL Estimated GFR 10 L (59 - ) Glucose 111 H (65-110) mg/dL POC Capillary Glucose 113 H 135 H (65-105) mg/dl Calcium 7.3 L (8.4-10.2) mg/dL Phosphorus 9.2 H (2.5-4.5) mg/dL AST 693 H (17-59) U/L ALT 970 H (6-50) U/L Alkaline Phosphatase 360 H (38-126) U/L Ammonia < 9 L (9-30) umol/L Total Protein 5.0 L (6.3-8.2) g/dL Albumin 2.6 L (3.5-5.1) g/dL Diabetes panel 12/22/24 Range/Units 05:37 Sodium 129 L (137-145) mmol/L Potassium 5.0 (3.4-5.0) mmol/L Chloride 97 L (98-107) mmol/L Carbon Dioxide 17 L (22-30) mmol/L BUN 101 H (9-20) mg/dL Creatinine 5.67 H (0.7-1.3) mg/dL Glucose 111 H (65-110) mg/dL Calcium 7.3 L (8.4-10.2) mg/dL AST 693 H (17-59) U/L ALT 970 H (6-50) U/L Alkaline Phosphatase 360 H (38-126) U/L Total Protein 5.0 L (6.3-8.2) g/dL Albumin 2.6 L (3.5-5.1) g/dL Calcium panel 12/22/24 Range/Units 05:37 Calcium 7.3 L (8.4-10.2) mg/dL Phosphorus 9.2 H (2.5-4.5) mg/dL Albumin 2.6 L (3.5-5.1) g/dL Pituitary panel 12/22/24 Range/Units 05:37 Sodium 129 L (137-145) mmol/L Potassium 5.0 (3.4-5.0) mmol/L Chloride 97 L (98-107) mmol/L Carbon Dioxide 17 L (22-30) mmol/L BUN 101 H (9-20) mg/dL Creatinine 5.67 H (0.7-1.3) mg/dL Glucose 111 H (65-110) mg/dL Calcium 7.3 L (8.4-10.2) mg/dL Adrenal panel 12/22/24 Range/Units 05:37 Sodium 129 L (137-145) mmol/L Potassium 5.0 (3.4-5.0) mmol/L Chloride 97 L (98-107) mmol/L Carbon Dioxide 17 L (22-30) mmol/L BUN 101 H (9-20) mg/dL Creatinine 5.67 H (0.7-1.3) mg/dL Glucose 111 H (65-110) mg/dL Calcium 7.3 L (8.4-10.2) mg/dL Total Bilirubin 0.7 (0.2-1.3) mg/dL AST 693 H (17-59) U/L ALT 970 H (6-50) U/L Alkaline Phosphatase 360 H (38-126) U/L Total Protein 5.0 L (6.3-8.2) g/dL Albumin 2.6 L (3.5-5.1) g/dL All other labs normal. Imaging Additional studies: ITS Impressions Chest X-Ray 12/17/24 14:01 Impression: 1: Bibasilar infiltrates, atelectasis versus pneumonia. 2: Small pleural effusions. Lumbar Spine X-Ray 12/17/24 15:44 IMPRESSION: Anterior loss of volume of L1 which is most likely chronic. MRI evaluation advised. Otherwise, No acute osseous abnormality lumbar spine. Degenerative disc disease at the level of L4-L5. Venous Doppler Study 12/18/24 13:13 IMPRESSION: 1. No deep venous thrombosis. Abdomen Ultrasound 12/18/24 13:18 IMPRESSION: 1. Cholelithiasis. No evidence of acute cholecystitis. 2. Mildly dilated common duct. Renal Ultrasound 12/18/24 13:21 IMPRESSION: 1. Normal kidney sizes. No hydronephrosis. Lumbar Spine MRI 12/18/24 15:23 IMPRESSION: Limited examination secondary to motion artifact. No abnormal signal intensity or contrast enhancement is identified within the vertebral body of L1 to suggest acute traumatic injury. Within the visualized intervertebral disc spaces, moderate degenerative disease is noted, as detailed above. Duplex Scan Lower Extremity Artery 12/18/24 21:35 IMPRESSION: Abnormal peak systolic velocity and waveform morphology suggesting a popliteal or tibioperoneal trunk stenosis. Three-vessel blood flow into the right calf with single vessel blood flow into the right foot (on the submitted images) Chest X-Ray 12/20/24 06:01 Impression: Small bilateral pleural effusions with mild bibasilar pulmonary edema/atelectasis. MRCP 12/21/24 08:48 IMPRESSION: 1. Study terminated at patient request prior to obtaining the normal complement of sequences including the MRCP images and which along with some motion artifact on the obtained sequences moderately limits evaluation. 2. Anasarca with small left and moderate-sized right pleural effusions, small amount of ascites and extensive body wall, as enteric and retroperitoneal edema. 3. Normal-appearing gallbladder with no evident cholelithiasis and with no intra or extrahepatic biliary ductal dilation. Sensitivity for tiny gallstones which were suggested on prior ultrasound is limited by motion artifact. 4. Cardiomegaly.
[2024-12-22 08:27] LABS: Glucose Point of Care 108 mg/dl (65-105)
[2024-12-22] MEDS: LORazepam INJ (*CRX) 2 MG/ML VIAL 0.5 MG IV PUSH ×2 (09:19→14:49)
--- NOTE | 2024-12-22 09:23 | PM.IMPN ---
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 Status: Acute (5) Acute kidney injury: Code(s): N17.9 - Acute kidney failure, unspecified Status: Acute (6) Chronic kidney disease, stage 4 (severe): Code(s): N18.4 - Chronic kidney disease, stage 4 (severe) Status: Acute (7) Status post above-knee amputation of left lower extremity: Code(s): Z89.612 - Acquired absence of left leg above knee Status: Acute (8) Acute respiratory failure: Code(s): J96.00 - Acute respiratory failure, unspecified whether with hypoxia or hypercapnia Status: Acute Plan (1) Transaminitis: Code(s): R74.01 - Elevation of levels of liver transaminase levels Status: Deleted Assessment and Plan: On admission, AST 215 and ALT 201. AP 340 with normal bili. Levels normal earlier this month. Hepatitis panel negative. Abd US showing cholelithiasis and mildly dilated CBD. Liver is normal in appearance. lipitor held. Repeat levels on 12/20 much worse with AST 1539, ALT 1066, AP 479, normal bili. Repeated CMP showed liver enzymes are trending down Lactic acid 1.1. Acet level <10 Possible due to congestion due to heart failure Consider autoimmune with + IV fluids stopped. GI consulted and appreciate their input. AST better. Unable to get MRCP Liver biopsy per GI, no complication Acute on chronic kidney failure: Code(s): N17.9 - Acute kidney failure, unspecified; N18.9 - Chronic kidney disease, unspecified Status: Acute Assessment and Plan: Patient presents with weakness and may have underlying PNA. Cr on admission 4.3. Baseline Cr 2.1-2.9 range. He was started on IV fluids. Urine eos negative. Eve 42. Total CK 371. Urine prot/Cr 4.7gm consistent with nephrotic syndrome. Complement normal. Hx of + 1:640. Renal US normal. Nephrology consulted and appreciate their input. Cryoglobulin pending. Phos 6.5. Creatinine is trending up, Phos remains elevated Planning HD for fluid overload. Renal biopsy planned (3) Pneumonia: Code(s): J18.9 - Pneumonia, unspecified organism Status: Acute Assessment and Plan: Patient presents with weakness after having cold and cough symptoms for 3 weeks. No benefit after 2 Z-packs. CXR showing bibasilar infiltrates. No fevers or hypoxia. WBC 12K. He was started on Rocephin and Doxycycline. WBC normal now. BCx NGTD. MRSA screen negative. Urine Ag pending. Sputum Cx growing MSSA and yeast. Abx to complete a 7 day course. Heart failure with mildly reduced ejection fraction: Code(s): I50.22 - Chronic systolic (congestive) heart failure Status: Acute Assessment and Plan: Echo showing severely reduced systolic fxn with EF 25-30% with diastolic dysfunction, mild valve disease and moderate pulmonary HTN. BNP >30K. CXR showing CMG, bibasilar infiltrates and small pleural effusions. Entresto and finerenone on hold. Diuretics not listed on home med list. Eve 42 so suspect good renal perfusion. Hold Toprol XL. Monitor UOP, renal fxn, daily weights and fluid balance Hold Entresto because of worsening kidney function Diabetes mellitus type 2 with complications: Code(s): E11.8 - Type 2 diabetes mellitus with unspecified complications Status: Chronic Assessment and Plan: A1c 7%. The patient's blood glucose was reviewed Patient was on an insulin pump at home. Concern patient was unable to handle his pump here so this was held. Glucose remains well controlled off the insulin pump. He is eating some Continue AccuCheks covering with sliding scale. Hypoglycemia protocol available as needed. Continue to monitor (6) Peripheral vascular disease: Code(s): I73.9 - Peripheral vascular disease, unspecified Status: Acute Assessment and Plan: Patient with known PAD. Venous doppler RLE negative for DVT. Arterial doppler RLE suggestive of a popliteal or tibioperoneal trunk stenosis. There is three-vessel blood flow into the right calf with single vessel blood flow into the right foot. Continue Zetia and ASA. Resume Lipitor when able. Hypothyroidism: Code(s): E03.9 - Hypothyroidism, unspecified Status: Acute Assessment and Plan: Review of Endocrine note from 11/12 showing he was to skip the Friday Synthroid dose. TSH is 46.4. Free T4 is low-normal at 0.96. Total T3 is 0.5. Patient is on 250 mcg daily of Synthroid. Suspect the skipped dose has resulted in the change in his thyroid panel. Will adjust to 250mcg daily except 125mcg on Sundays. (8) Tobacco dependence: Code(s): F17.200 - Nicotine dependence, unspecified, uncomplicated Status: Acute Assessment and Plan: Patient was educated about the benefits of smoking cessation Subjective Date/time seen: 12/22/24 09:23 Interval history: Patient is afebrile overnight, blood pressure stable on the lower side, has tachycardia, pulse ox 100% on 2 L nasal cannula Labs reviewed, liver enzymes are trending down, bilirubin normal, creatinine trending up Patient underwent liver biopsy no complications Exam Narrative: GENERAL: Ill-appearing, in no acute distress. Well-nourished. - EYES: EOMI. Anicteric. - HENT: Moist mucous membranes. - LUNGS: Coarse breath sound bilaterally - CARDIOVASCULAR: Regular rate and rhythm. No murmur. No JVD. - ABDOMEN: Soft, non-tender and non-distended. No palpable masses. ; folic catheter in-situ, scrotum is enlarged - EXTREMITIES: No edema. Left above knee amputation - NEUROLOGIC: No focal neurological deficits. CN II-XII grossly intact. - PSYCHIATRIC: Awake, Alert and oriented x 3. Appropriate mood and affect. - SKIN: No rashes or lesions. Warm. - LYMPH: No cervical lymphadenopathy. Objective Data Vital Signs Vital Signs: Vital Signs - 24 hr 12/21/24 14:46 12/21/24 20:00 12/21/24 20:59 Temperature 97.3 F L 97.7 F Pulse Rate 111 H 113 H 112 H Respiratory Rate 18 16 Blood Pressure 99/74 L 101/66 Pulse Oximetry 99 96 12/22/24 00:00 12/22/24 04:00 12/22/24 05:48 Temperature 97.5 F L Pulse Rate 98 98 112 H Respiratory Rate 16 Blood Pressure 109/66 Pulse Oximetry 100 Intake/Output Intake/Output: Intake & Output 12/19/24 12/20/24 12/21/24 12/22/24 23:59 23:59 23:59 23:59 Intake Total 3610 837 450 Output Total 1450 0 500 300 Balance 2160 837 -50 -300 Meds/Results Medications: Active Medications Generic Name Dose Route Start Last Admin Trade Name Freq PRN Reason Stop Dose Admin Acetaminophen 650 mg 12/17/24 16:18 12/18/24 20:54 Acetaminophen 325 Mg Tablet PO 650 mg Q4H PRN Administration Mild Pain (1-3) or Fever Hydrocodone Bitart/Acetaminophen 1 tab 12/17/24 19:37 12/19/24 15:50 Hydrocodone/Acetaminophen (*Crx) 5-325 Mg Tablet PO 1 tab Q8H PRN Administration pain 4-6 Aspirin 81 mg 12/20/24 08:00 12/21/24 11:13 Aspirin 81 Mg Chewable Tablet PO 81 mg DAILY@0800 [facility] Administration Calcium Carbonate 200 mg 12/18/24 22:39 Calcium Carbonate (Tums) 500 Mg (200 Mg Elemental) PO Q6H PRN Indigestion Dextrose 12.5 gm 12/17/24 22:39 Dextrose 50% 25 Gm/50 Ml Syringe IV PUSH PRN PRN Hypoglycemia Protocol Diphenhydramine HCl 12.5 mg 12/18/24 14:23 12/21/24 21:02 Diphenhydramine Hcl Elixir 12.5 Mg/5 Ml Udc PO 12.5 mg Q6H PRN Administration Itching Doxycycline Hyclate 100 mg 12/17/24 22:45 12/21/24 21:02 Doxycycline Hyclate 100 Mg Tablet PO 12/24/24 09:01 100 mg Q12HR [facility] Administration Ezetimibe 10 mg 12/18/24 09:00 12/21/24 11:14 Ezetimibe 10 Mg Tablet PO 10 mg DAILY [facility] Administration Glucagon 1 mg 12/17/24 22:39 Glucagon For Inj 1 Mg Vial IM PRN PRN Hypoglycemia Protocol Glucose 15 gm 12/17/24 22:39 Glucose Oral Gel 15 Gm Of Glucse In 37.5 Gm Tube PO PRN PRN Hypoglycemia Protocol Heparin Sodium (Porcine) 5,000 units 12/18/24 09:00 12/22/24 07:55 Heparin Sodium 5,000 Units/Ml Vial SUB-Q Not Given Q12HR [facility] Dextrose 1,000 mls @ 100 mls/hr 12/17/24 22:39 Dextrose 5% 1,000 Ml IVPB PRN PRN Hypoglycemia Protocol Ceftriaxone Sodium 1 gm in 50 mls @ 100 mls/hr 12/17/24 23:00 12/22/24 00:38 Rocephin 1 Gm/Ns 50 Ml IVPB 12/23/24 23:29 100 mls/hr Q24H [facility] Administration Albumin Human 50 mls @ 999 mls/hr 12/22/24 05:43 Albutein IVPB 01/21/25 05:42 Q10M PRN HYPOTENSION Insulin Aspart 2 - 5 units 12/18/24 11:30 12/21/24 21:03 Insulin Aspart (*Bkc) 100 Units/Ml SUB-Q Not Given ACHS [facility] Protocol Levothyroxine Sodium 250 mcg 12/21/24 06:30 12/22/24 06:42 Levothyroxine Sodium 125 Mcg Tablet PO 250 mcg [id number]@0630 [facility] Administration Levothyroxine Sodium 125 mcg 12/26/24 06:30 Levothyroxine Sodium 125 Mcg Tablet PO Mitchell@0630 [facility] Lorazepam 0.5 mg 12/22/24 09:11 Lorazepam Inj (*Crx) 2 Mg/Ml Vial IV PUSH Q6H PRN Anxiety/agitation/procedures Metoprolol Succinate 50 mg 12/18/24 09:00 12/19/24 09:01 Metoprolol Succinate Ext Rel 50 Mg Tabcr PO 50 mg DAILY [facility] Administration Nicotine 1 patch 12/17/24 22:45 12/21/24 11:14 Nicotine (*Pbkc) 21 Mg Patch TRANSDERM 1 patch DAILY [facility] Administration Ondansetron HCl 4 mg 12/17/24 16:18 12/19/24 21:24 Ondansetron Inj 4 Mg/2 Ml Vial IV PUSH 4 mg Q4H PRN Administration Nausea Oxycodone HCl 5 mg 12/22/24 09:12 Oxycodone Hcl (*Crx) 5 Mg Tab Ir PO Q4H PRN Pain Rated 7-10 Sacubitril/Valsartan 1 tab 12/17/24 21:00 12/18/24 08:25 Sacubitril/Valsartan 24-26 Mg Tablet PO 1 tab Q12HR [facility] Administration Sertraline HCl 100 mg 12/18/24 09:00 12/21/24 11:14 Sertraline Hcl 50 Mg Tablet PO 100 mg DAILY [facility] Administration Sodium Zirconium Cyclosilicate 10 gm 12/21/24 15:00 12/21/24 21:06 Sodium Zirconium Cyclosilicate 10 Gm Powd.Pack PO 10 gm TID@1000,1500,2200 [facility] Administration Radiology Results: ITS Impressions Lumbar Spine X-Ray 12/17/24 15:44 IMPRESSION: Anterior loss of volume of L1 which is most likely chronic. MRI evaluation advised. Otherwise, No acute osseous abnormality lumbar spine. Degenerative disc disease at the level of L4-L5. Venous Doppler Study 12/18/24 13:13 IMPRESSION: 1. No deep venous thrombosis. Abdomen Ultrasound 12/18/24 13:18 IMPRESSION: 1. Cholelithiasis. No evidence of acute cholecystitis. 2. Mildly dilated common duct. Renal Ultrasound 12/18/24 13:21 IMPRESSION: 1. Normal kidney sizes. No hydronephrosis. Lumbar Spine MRI 12/18/24 15:23 IMPRESSION: Limited examination secondary to motion artifact. No abnormal signal intensity or contrast enhancement is identified within the vertebral body of L1 to suggest acute traumatic injury. Within the visualized intervertebral disc spaces, moderate degenerative disease is noted, as detailed above. Duplex Scan Lower Extremity Artery 12/18/24 21:35 IMPRESSION: Abnormal peak systolic velocity and waveform morphology suggesting a popliteal or tibioperoneal trunk stenosis. Three-vessel blood flow into the right calf with single vessel blood flow into the right foot (on the submitted images) Chest X-Ray 12/20/24 06:01 Impression: Small bilateral pleural effusions with mild bibasilar pulmonary edema/atelectasis. MRCP 12/21/24 08:48 IMPRESSION: 1. Study terminated at patient request prior to obtaining the normal complement of sequences including the MRCP images and which along with some motion artifact on the obtained sequences moderately limits evaluation. 2. Anasarca with small left and moderate-sized right pleural effusions, small amount of ascites and extensive body wall, as enteric and retroperitoneal edema. 3. Normal-appearing gallbladder with no evident cholelithiasis and with no intra or extrahepatic biliary ductal dilation. Sensitivity for tiny gallstones which were suggested on prior ultrasound is limited by motion artifact. 4. Cardiomegaly. Labs Labs: Laboratory Results - last 24 hr 12/18/24 12/21/24 12/21/24 03:16 11:07 16:12 WBC RBC Hgb Hct MCV MCH MCHC RDW Plt Count MPV Immature Gran % (Auto) Neut % (Auto) Lymph % (Auto) [place] % (Auto) Eos % (Auto) Baso % (Auto) Lymph # (Auto) [place] # (Auto) Eos # (Auto) Baso # (Auto) Abs Immat Gran (auto) Absolute Neuts (auto) Absolute Nucleated RBC Nucleated RBC % PT INR Sodium Potassium Chloride Carbon Dioxide Anion Gap BUN Creatinine Estim Creat Clear Calc Estimated GFR Glucose POC Capillary Glucose 80 113 H Calcium Phosphorus Magnesium Total Bilirubin AST ALT Alkaline Phosphatase Ammonia Total Protein Albumin Ur Random Sodium Hep Bs Antigen Hep Bs Antibody Ur L.pneumophila Ag Not detected 12/21/24 12/22/24 12/22/24 19:59 00:43 05:37 WBC 9.8 RBC 4.58 L Hgb 11.5 L Hct 37.5 L MCV 81.9 MCH 25.1 L MCHC 30.7 L RDW 18.6 H Plt Count 259 MPV 9.4 Immature Gran % (Auto) 0.9 H Neut % (Auto) 75.4 H Lymph % (Auto) 11.5 L [place] % (Auto) 6.3 Eos % (Auto) 5.6 H Baso % (Auto) 0.3 Lymph # (Auto) 1.12 [place] # (Auto) 0.6 Eos # (Auto) 0.6 H Baso # (Auto) 0.0 Abs Immat Gran (auto) 0.09 H Absolute Neuts (auto) 7.4 H Absolute Nucleated RBC 0.220 H Nucleated RBC % 2.3 H PT 19.7 H INR 1.6 Sodium 129 L Potassium 5.0 Chloride 97 L Carbon Dioxide 17 L Anion Gap 15 H BUN 101 H Creatinine 5.67 H Estim Creat Clear Calc 17 Estimated GFR 10 L Glucose 111 H POC Capillary Glucose 135 H Calcium 7.3 L Phosphorus 9.2 H Magnesium 1.9 Total Bilirubin 0.7 AST 693 H ALT 970 H Alkaline Phosphatase 360 H Ammonia < 9 L Total Protein 5.0 L Albumin 2.6 L Ur Random Sodium 21 Hep Bs Antigen Negative Hep Bs Antibody Negative Ur L.pneumophila Ag 04/02/25 08:16 WBC RBC Hgb Hct MCV MCH MCHC RDW Plt Count MPV Immature Gran % (Auto) Neut % (Auto) Lymph % (Auto) [place] % (Auto) Eos % (Auto) Baso % (Auto) Lymph # (Auto) [place] # (Auto) Eos # (Auto) Baso # (Auto) Abs Immat Gran (auto) Absolute Neuts (auto) Absolute Nucleated RBC Nucleated RBC % PT INR Sodium Potassium Chloride Carbon Dioxide Anion Gap BUN Creatinine Estim Creat Clear Calc Estimated GFR Glucose POC Capillary Glucose 108 H Calcium Phosphorus Magnesium Total Bilirubin AST ALT Alkaline Phosphatase Ammonia Total Protein Albumin Ur Random Sodium Hep Bs Antigen Hep Bs Antibody Ur L.pneumophila Ag
[2024-12-22 12:18] LABS: Glucose Point of Care 100 mg/dl (65-105)
[2024-12-22 13:13] LABS: Anti Glomerular Basement Memb <1.0 AI
--- NOTE | 2024-12-22 13:46 | WPDUROPN2 ---
Progress Note: A&P Assessment and Plan (1) Scrotal edema: Code(s): N50.89 - Other specified disorders of the male genital organs Status: Acute Assessment and Plan: - Likely 2/2 fluid overload from renal failure - 12/18/24 urine culture negative (2) Urinary retention: Code(s): R33.9 - Retention of urine, unspecified Status: Acute Assessment and Plan: - s/p flexible cystoscopy with passive dilation of mild bulbar narrowing, complex Hernandez catheter placement (16 Fr coude) with Dr. Kim 12/20/24 (3) Acute on chronic kidney failure: Qualifiers: Acute renal failure type: unspecified Chronic kidney disease stage: unspecified stage Qualified Code(s): N17.9 - Acute kidney failure, unspecified; N18.9 - Chronic kidney disease, unspecified Code(s): N17.9 - Acute kidney failure, unspecified; N18.9 - Chronic kidney disease, unspecified Status: Acute Assessment and Plan: - Worsening renal failure, fluid overload - Cr 5.7 from 4.3 on admission - 12/18/24 JOSIE shows normal kidneys, no hydronephrosis, no stones, normal bladder - Nephrology following; ?etiology 2/2 nephrotic syndrome - Temporary dialysis catheter placement scheduled 12/22/24 for planned hemodialysis - Kidney biopsy planned for 12/23/24 Plan - Patient likely developed penoscrotal swelling as a result of his renal failure and subsequent fluid overload - Keep scrotum elevated off the bed/chair - Maintain indwelling Hernandez catheter until his fluid volume status and mobility improves - Patient aware penoscrotal edema should improve gradually and likely will not resolve with one dialysis session Subjective Subjective Date/Time Seen: 12/22/24 13:46 Interval history: - Developed severe penoscrotal swelling since last urology evaluation on 12/20 - Interval worsening renal failure, fluid overload - Scheduled for temporary dialysis catheter today with hemodialysis to follow - Indwelling Hernandez draining yellow urine Exam Const: General: uncomfortable Other: Tearful, frustrated HENMT: Face/Nose/Sinus: Normal nares present Resp: Other: Increased work of breathing on room air GI: Other: Obese, softly distended : Male General Exam: Yes tenderness Other: - Severe penoscrotal edema without evidence of abscess, cellulitis, necrosis Urinary Catheter: Urinary Catheter: patent and draining (yellow urine) Neuro: Speech: normal speech Psych: Affect: Sad affect present Objective Data Vital Signs Vital Signs: Vital Signs - 24 hr 12/21/24 14:46 12/21/24 20:00 12/21/24 20:59 Temperature 97.3 F L 97.7 F Pulse Rate 111 H 113 H 112 H Respiratory Rate 18 16 Blood Pressure 99/74 L 101/66 Pulse Oximetry 99 96 12/22/24 00:00 12/22/24 04:00 12/22/24 05:48 Temperature 97.5 F L Pulse Rate 98 98 112 H Respiratory Rate 16 Blood Pressure 109/66 Pulse Oximetry 100 12/22/24 10:30 Temperature 97.4 F L Pulse Rate 112 H Respiratory Rate 16 Blood Pressure 99/69 L Pulse Oximetry 93 Intake/Output Intake/Output: Intake & Output 12/19/24 12/20/24 12/21/24 12/22/24 23:59 23:59 23:59 23:59 Intake Total 3610 837 450 Output Total 1450 0 500 300 Balance 2160 837 -50 -300 Meds/Results Medications: Active Medications Generic Name Dose Route Start Last Admin Trade Name Freq PRN Reason Stop Dose Admin Acetaminophen 650 mg 12/17/24 16:18 12/18/24 20:54 Acetaminophen 325 Mg Tablet PO 650 mg Q4H PRN Administration Mild Pain (1-3) or Fever Hydrocodone Bitart/Acetaminophen 1 tab 12/17/24 19:37 12/19/24 15:50 Hydrocodone/Acetaminophen (*Crx) 5-325 Mg Tablet PO 1 tab Q8H PRN Administration pain 4-6 Aspirin 81 mg 12/20/24 08:00 12/21/24 11:13 Aspirin 81 Mg Chewable Tablet PO 81 mg DAILY@0800 REGINA Administration Calcium Carbonate 200 mg 12/18/24 22:39 Calcium Carbonate (Tums) 500 Mg (200 Mg Elemental) PO Q6H PRN Indigestion Dextrose 12.5 gm 12/17/24 22:39 Dextrose 50% 25 Gm/50 Ml Syringe IV PUSH PRN PRN Hypoglycemia Protocol Diphenhydramine HCl 12.5 mg 12/18/24 14:23 12/21/24 21:02 Diphenhydramine Hcl Elixir 12.5 Mg/5 Ml Udc PO 12.5 mg Q6H PRN Administration Itching Doxycycline Hyclate 100 mg 12/17/24 22:45 12/21/24 21:02 Doxycycline Hyclate 100 Mg Tablet PO 12/24/24 09:01 100 mg Q12HR REGINA Administration Ezetimibe 10 mg 12/18/24 09:00 12/21/24 11:14 Ezetimibe 10 Mg Tablet PO 10 mg DAILY REGINA Administration Glucagon 1 mg 12/17/24 22:39 Glucagon For Inj 1 Mg Vial IM PRN PRN Hypoglycemia Protocol Glucose 15 gm 12/17/24 22:39 Glucose Oral Gel 15 Gm Of Glucse In 37.5 Gm Tube PO PRN PRN Hypoglycemia Protocol Heparin Sodium (Porcine) 5,000 units 12/18/24 09:00 12/22/24 07:55 Heparin Sodium 5,000 Units/Ml Vial SUB-Q Not Given Q12HR [facility] Dextrose 1,000 mls @ 100 mls/hr 12/17/24 22:39 Dextrose 5% 1,000 Ml IVPB PRN PRN Hypoglycemia Protocol Ceftriaxone Sodium 1 gm in 50 mls @ 100 mls/hr 12/17/24 23:00 12/22/24 00:38 Rocephin 1 Gm/Ns 50 Ml IVPB 12/23/24 23:29 100 mls/hr Q24H REGINA Administration Albumin Human 50 mls @ 999 mls/hr 12/22/24 05:43 Albutein IVPB 01/21/25 05:42 Q10M PRN HYPOTENSION Insulin Aspart 2 - 5 units 12/18/24 11:30 12/21/24 21:03 Insulin Aspart (*Bkc) 100 Units/Ml SUB-Q Not Given ACHS [facility] Protocol Levothyroxine Sodium 250 mcg 12/21/24 06:30 12/22/24 06:42 Levothyroxine Sodium 125 Mcg Tablet PO 250 mcg MoTuWeThFrSa@0630 REGINA Administration Levothyroxine Sodium 125 mcg 12/26/24 06:30 Levothyroxine Sodium 125 Mcg Tablet PO Mitchell@0630 REGINA Lorazepam 0.5 mg 12/22/24 09:11 12/22/24 09:19 Lorazepam Inj (*Crx) 2 Mg/Ml Vial IV PUSH 0.5 mg Q6H PRN Administration Anxiety/agitation/procedures Metoprolol Succinate 50 mg 12/18/24 09:00 12/19/24 09:01 Metoprolol Succinate Ext Rel 50 Mg Tabcr PO 50 mg DAILY REGINA Administration Nicotine 1 patch 12/17/24 22:45 12/21/24 11:14 Nicotine (*Pbkc) 21 Mg Patch TRANSDERM 1 patch DAILY REGINA Administration Ondansetron HCl 4 mg 12/17/24 16:18 12/19/24 21:24 Ondansetron Inj 4 Mg/2 Ml Vial IV PUSH 4 mg Q4H PRN Administration Nausea Oxycodone HCl 5 mg 12/22/24 09:12 Oxycodone Hcl (*Crx) 5 Mg Tab Ir PO Q4H PRN Pain Rated 7-10 Sacubitril/Valsartan 1 tab 12/17/24 21:00 12/18/24 08:25 Sacubitril/Valsartan 24-26 Mg Tablet PO 1 tab Q12HR REGINA Administration Sertraline HCl 100 mg 12/18/24 09:00 12/21/24 11:14 Sertraline Hcl 50 Mg Tablet PO 100 mg DAILY REGINA Administration Sodium Zirconium Cyclosilicate 10 gm 12/21/24 15:00 12/21/24 21:06 Sodium Zirconium Cyclosilicate 10 Gm Powd.Pack PO 10 gm TID@1000,1500,2200 REGINA Administration Radiology Results: ITS Impressions Lumbar Spine X-Ray 12/17/24 15:44 IMPRESSION: Anterior loss of volume of L1 which is most likely chronic. MRI evaluation advised. Otherwise, No acute osseous abnormality lumbar spine. Degenerative disc disease at the level of L4-L5. Venous Doppler Study 12/18/24 13:13 IMPRESSION: 1. No deep venous thrombosis. Abdomen Ultrasound 12/18/24 13:18 IMPRESSION: 1. Cholelithiasis. No evidence of acute cholecystitis. 2. Mildly dilated common duct. Renal Ultrasound 12/18/24 13:21 IMPRESSION: 1. Normal kidney sizes. No hydronephrosis. Lumbar Spine MRI 12/18/24 15:23 IMPRESSION: Limited examination secondary to motion artifact. No abnormal signal intensity or contrast enhancement is identified within the vertebral body of L1 to suggest acute traumatic injury. Within the visualized intervertebral disc spaces, moderate degenerative disease is noted, as detailed above. Duplex Scan Lower Extremity Artery 12/18/24 21:35 IMPRESSION: Abnormal peak systolic velocity and waveform morphology suggesting a popliteal or tibioperoneal trunk stenosis. Three-vessel blood flow into the right calf with single vessel blood flow into the right foot (on the submitted images) Chest X-Ray 12/20/24 06:01 Impression: Small bilateral pleural effusions with mild bibasilar pulmonary edema/atelectasis. MRCP 12/21/24 08:48 IMPRESSION: 1. Study terminated at patient request prior to obtaining the normal complement of sequences including the MRCP images and which along with some motion artifact on the obtained sequences moderately limits evaluation. 2. Anasarca with small left and moderate-sized right pleural effusions, small amount of ascites and extensive body wall, as enteric and retroperitoneal edema. 3. Normal-appearing gallbladder with no evident cholelithiasis and with no intra or extrahepatic biliary ductal dilation. Sensitivity for tiny gallstones which were suggested on prior ultrasound is limited by motion artifact. 4. Cardiomegaly. Liver Biopsy Ultrasound 12/22/24 10:51 IMPRESSION: 1. Successful Ultrasound-guided random liver biopsy. Labs Labs: Laboratory Results - last 24 hr 12/18/24 12/19/24 12/21/24 03:16 04:53 16:12 WBC RBC Hgb Hct MCV MCH MCHC RDW Plt Count MPV Immature Gran % (Auto) Neut % (Auto) Lymph % (Auto) [place] % (Auto) Eos % (Auto) Baso % (Auto) Lymph # (Auto) [place] # (Auto) Eos # (Auto) Baso # (Auto) Abs Immat Gran (auto) Absolute Neuts (auto) Absolute Nucleated RBC Nucleated RBC % PT INR Sodium Potassium Chloride Carbon Dioxide Anion Gap BUN Creatinine Estim Creat Clear Calc Estimated GFR Glucose POC Capillary Glucose 113 H Calcium Phosphorus Magnesium Total Bilirubin AST ALT Alkaline Phosphatase Ammonia Total Protein Albumin Ur Random Sodium Glomerular Base Memb Ab <1.0 Hep Bs Antigen Hep Bs Antibody Ur L.pneumophila Ag Not detected 12/21/24 12/22/24 12/22/24 19:59 00:43 05:37 WBC 9.8 RBC 4.58 L Hgb 11.5 L Hct 37.5 L MCV 81.9 MCH 25.1 L MCHC 30.7 L RDW 18.6 H Plt Count 259 MPV 9.4 Immature Gran % (Auto) 0.9 H Neut % (Auto) 75.4 H Lymph % (Auto) 11.5 L [place] % (Auto) 6.3 Eos % (Auto) 5.6 H Baso % (Auto) 0.3 Lymph # (Auto) 1.12 [place] # (Auto) 0.6 Eos # (Auto) 0.6 H Baso # (Auto) 0.0 Abs Immat Gran (auto) 0.09 H Absolute Neuts (auto) 7.4 H Absolute Nucleated RBC 0.220 H Nucleated RBC % 2.3 H PT 19.7 H INR 1.6 Sodium 129 L Potassium 5.0 Chloride 97 L Carbon Dioxide 17 L Anion Gap 15 H BUN 101 H Creatinine 5.67 H Estim Creat Clear Calc 17 Estimated GFR 10 L Glucose 111 H POC Capillary Glucose 135 H Calcium 7.3 L Phosphorus 9.2 H Magnesium 1.9 Total Bilirubin 0.7 AST 693 H ALT 970 H Alkaline Phosphatase 360 H Ammonia < 9 L Total Protein 5.0 L Albumin 2.6 L Ur Random Sodium 21 Glomerular Base Memb Ab Hep Bs Antigen Negative Hep Bs Antibody Negative Ur L.pneumophila Ag 12/22/24 12/22/24 08:16 12:08 WBC RBC Hgb Hct MCV MCH MCHC RDW Plt Count MPV Immature Gran % (Auto) Neut % (Auto) Lymph % (Auto) [place] % (Auto) Eos % (Auto) Baso % (Auto) Lymph # (Auto) [place] # (Auto) Eos # (Auto) Baso # (Auto) Abs Immat Gran (auto) Absolute Neuts (auto) Absolute Nucleated RBC Nucleated RBC % PT INR Sodium Potassium Chloride Carbon Dioxide Anion Gap BUN Creatinine Estim Creat Clear Calc Estimated GFR Glucose POC Capillary Glucose 108 H 100 Calcium Phosphorus Magnesium Total Bilirubin AST ALT Alkaline Phosphatase Ammonia Total Protein Albumin Ur Random Sodium Glomerular Base Memb Ab Hep Bs Antigen Hep Bs Antibody Ur L.pneumophila Ag
--- NOTE | 2024-12-22 15:38 | P.PNGI_ITS ---
Progress Note: A&P Assessment and Plan (1) Abnormal transaminases: Code(s): R74.8 - Abnormal levels of other serum enzymes Status: Acute Assessment and Plan: Liver biopsy performed today, will likely show congestive hepatopathy secondary to his diastolic dysfunction (even in the abscence of a recent hypotensive episode). Slight improvement in AST and ALT. Anticipated hemodyalisis soon due to worsening creatinine. Subjective Date/time seen: 12/22/24 15:38 Interval history: Patient uncomfortable, did not sleep well due to recently placed sullivan catheter. Underwent liver biopsy this am, no complications. Exam Const: General: uncomfortable Other: Tearful, frustrated HENMT: Face/Nose/Sinus: Normal nares present Resp: Other: Increased work of breathing on room air GI: Other: Obese, softly distended : Male General Exam: Yes tenderness Other: - Severe penoscrotal edema without evide nce of abscess, cellulitis, necrosis Urinary Catheter: Urinary Catheter: patent and draining (yellow urine) Neuro: Speech: normal speech Psych: Affect: Sad affect present Objective Data Vital Signs Vital Signs: Vital Signs - 24 hr 12/21/24 20:00 12/21/24 20:59 12/22/24 00:00 Temperature 97.7 F Pulse Rate 113 H 112 H 98 Respiratory Rate 16 Blood Pressure 101/66 Pulse Oximetry 96 12/22/24 04:00 12/22/24 05:48 12/22/24 10:30 Temperature 97.5 F L 97.4 F L Pulse Rate 98 112 H 112 H Respiratory Rate 16 16 Blood Pressure 109/66 99/69 L Pulse Oximetry 100 93 12/22/24 14:00 Temperature 97.5 F L Pulse Rate 115 H Respiratory Rate 16 Blood Pressure 105/81 Pulse Oximetry 97 Intake/Output Intake/Output: Intake & Output 12/19/24 12/20/24 12/21/24 12/22/24 23:59 23:59 23:59 23:59 Intake Total 3610 837 450 Output Total 1450 0 500 300 Balance 2160 837 -50 -300 Meds/Results Medications: Active Medications Generic Name Dose Route Start Last Admin Trade Name Freq PRN Reason Stop Dose Admin Acetaminophen 650 mg 12/17/24 16:18 12/18/24 20:54 Acetaminophen 325 Mg Tablet PO 650 mg Q4H PRN Administration Mild Pain (1-3) or Fever Hydrocodone Bitart/Acetaminophen 1 tab 12/17/24 19:37 12/19/24 15:50 Hydrocodone/Acetaminophen (*Crx) 5-325 Mg Tablet PO 1 tab Q8H PRN Administration pain 4-6 Aspirin 81 mg 12/20/24 08:00 12/21/24 11:13 Aspirin 81 Mg Chewable Tablet PO 81 mg DAILY@0800 REGINA Administration Calcium Carbonate 200 mg 12/18/24 22:39 Calcium Carbonate (Tums) 500 Mg (200 Mg Elemental) PO Q6H PRN Indigestion Dextrose 12.5 gm 12/17/24 22:39 Dextrose 50% 25 Gm/50 Ml Syringe IV PUSH PRN PRN Hypoglycemia Protocol Diphenhydramine HCl 12.5 mg 12/18/24 14:23 12/21/24 21:02 Diphenhydramine Hcl Elixir 12.5 Mg/5 Ml Udc PO 12.5 mg Q6H PRN Administration Itching Doxycycline Hyclate 100 mg 12/17/24 22:45 12/21/24 21:02 Doxycycline Hyclate 100 Mg Tablet PO 12/24/24 09:01 100 mg Q12HR REGINA Administration Ezetimibe 10 mg 12/18/24 09:00 12/21/24 11:14 Ezetimibe 10 Mg Tablet PO 10 mg DAILY REGINA Administration Glucagon 1 mg 12/17/24 22:39 Glucagon For Inj 1 Mg Vial IM PRN PRN Hypoglycemia Protocol Glucose 15 gm 12/17/24 22:39 Glucose Oral Gel 15 Gm Of Glucse In 37.5 Gm Tube PO PRN PRN Hypoglycemia Protocol Heparin Sodium (Porcine) 5,000 units 12/18/24 09:00 12/22/24 07:55 Heparin Sodium 5,000 Units/Ml Vial SUB-Q Not Given Q12HR REGINA Dextrose 1,000 mls @ 100 mls/hr 12/17/24 22:39 Dextrose 5% 1,000 Ml IVPB PRN PRN Hypoglycemia Protocol Ceftriaxone Sodium 1 gm in 50 mls @ 100 mls/hr 12/17/24 23:00 12/22/24 00:38 Rocephin 1 Gm/Ns 50 Ml IVPB 12/23/24 23:29 100 mls/hr Q24H REGINA Administration Albumin Human 50 mls @ 999 mls/hr 12/22/24 05:43 Albutein IVPB 01/21/25 05:42 Q10M PRN HYPOTENSION Insulin Aspart 2 - 5 units 12/18/24 11:30 12/21/24 21:03 Insulin Aspart (*Bkc) 100 Units/Ml SUB-Q Not Given ACHS [facility] Protocol Levothyroxine Sodium 250 mcg 12/21/24 06:30 12/22/24 06:42 Levothyroxine Sodium 125 Mcg Tablet PO 250 mcg MoTuWeThFrSa@0630 REGINA Administration Levothyroxine Sodium 125 mcg 12/26/24 06:30 Levothyroxine Sodium 125 Mcg Tablet PO Mitchell@0630 REGINA Lorazepam 0.5 mg 12/22/24 09:11 12/22/24 14:49 Lorazepam Inj (*Crx) 2 Mg/Ml Vial IV PUSH 0.5 mg Q6H PRN Administration Anxiety/agitation/procedures Metoprolol Succinate 50 mg 12/18/24 09:00 12/19/24 09:01 Metoprolol Succinate Ext Rel 50 Mg Tabcr PO 50 mg DAILY [facility] Administration Nicotine 1 patch 12/17/24 22:45 12/21/24 11:14 Nicotine (*Pbkc) 21 Mg Patch TRANSDERM 1 patch DAILY [facility] Administration Ondansetron HCl 4 mg 12/17/24 16:18 12/19/24 21:24 Ondansetron Inj 4 Mg/2 Ml Vial IV PUSH 4 mg Q4H PRN Administration Nausea Oxycodone HCl 5 mg 12/22/24 09:12 Oxycodone Hcl (*Crx) 5 Mg Tab Ir PO Q4H PRN Pain Rated 7-10 Sacubitril/Valsartan 1 tab 12/17/24 21:00 12/18/24 08:25 Sacubitril/Valsartan 24-26 Mg Tablet PO 1 tab Q12HR REGINA Administration Sertraline HCl 100 mg 12/18/24 09:00 12/21/24 11:14 Sertraline Hcl 50 Mg Tablet PO 100 mg DAILY [facility] Administration Sodium Zirconium Cyclosilicate 10 gm 12/21/24 15:00 12/21/24 21:06 Sodium Zirconium Cyclosilicate 10 Gm Powd.Pack PO 10 gm TID@1000,1500,2200 REGINA Administration Radiology Results: ITS Impressions Lumbar Spine X-Ray 12/17/24 15:44 IMPRESSION: Anterior loss of volume of L1 which is most likely chronic. MRI evaluation advised. Otherwise, No acute osseous abnormality lumbar spine. Degenerative disc disease at the level of L4-L5. Venous Doppler Study 12/18/24 13:13 IMPRESSION: 1. No deep venous thrombosis. Abdomen Ultrasound 12/18/24 13:18 IMPRESSION: 1. Cholelithiasis. No evidence of acute cholecystitis. 2. Mildly dilated common duct. Renal Ultrasound 12/18/24 13:21 IMPRESSION: 1. Normal kidney sizes. No hydronephrosis. Lumbar Spine MRI 12/18/24 15:23 IMPRESSION: Limited examination secondary to motion artifact. No abnormal signal intensity or contrast enhancement is identified within the vertebral body of L1 to suggest acute traumatic injury. Within the visualized intervertebral disc spaces, moderate degenerative disease is noted, as detailed above. Duplex Scan Lower Extremity Artery 12/18/24 21:35 IMPRESSION: Abnormal peak systolic velocity and waveform morphology suggesting a popliteal or tibioperoneal trunk stenosis. Three-vessel blood flow into the right calf with single vessel blood flow into the right foot (on the submitted images) Chest X-Ray 12/20/24 06:01 Impression: Small bilateral pleural effusions with mild bibasilar pulmonary edema/atelectasis. MRCP 12/21/24 08:48 IMPRESSION: 1. Study terminated at patient request prior to obtaining the normal complement of sequences including the MRCP images and which along with some motion artifact on the obtained sequences moderately limits evaluation. 2. Anasarca with small left and moderate-sized right pleural effusions, small amount of ascites and extensive body wall, as enteric and retroperitoneal edema. 3. Normal-appearing gallbladder with no evident cholelithiasis and with no intra or extrahepatic biliary ductal dilation. Sensitivity for tiny gallstones which were suggested on prior ultrasound is limited by motion artifact. 4. Cardiomegaly. Liver Biopsy Ultrasound 12/22/24 10:51 IMPRESSION: 1. Successful Ultrasound-guided random liver biopsy. Labs Labs: Laboratory Results - last 24 hr 12/18/24 12/19/24 12/21/24 03:16 04:53 16:12 WBC RBC Hgb Hct MCV MCH MCHC RDW Plt Count MPV Immature Gran % (Auto) Neut % (Auto) Lymph % (Auto) [place] % (Auto) Eos % (Auto) Baso % (Auto) Lymph # (Auto) [place] # (Auto) Eos # (Auto) Baso # (Auto) Abs Immat Gran (auto) Absolute Neuts (auto) Absolute Nucleated RBC Nucleated RBC % PT INR Sodium Potassium Chloride Carbon Dioxide Anion Gap BUN Creatinine Estim Creat Clear Calc Estimated GFR Glucose POC Capillary Glucose 113 H Calcium Phosphorus Magnesium Total Bilirubin AST ALT Alkaline Phosphatase Ammonia Total Protein Albumin Ur Random Sodium Glomerular Base Memb Ab <1.0 Hep Bs Antigen Hep Bs Antibody Ur L.pneumophila Ag Not detected 12/21/24 12/22/24 12/22/24 19:59 00:43 05:37 WBC 9.8 RBC 4.58 L Hgb 11.5 L Hct 37.5 L MCV 81.9 MCH 25.1 L MCHC 30.7 L RDW 18.6 H Plt Count 259 MPV 9.4 Immature Gran % (Auto) 0.9 H Neut % (Auto) 75.4 H Lymph % (Auto) 11.5 L [place] % (Auto) 6.3 Eos % (Auto) 5.6 H Baso % (Auto) 0.3 Lymph # (Auto) 1.12 [place] # (Auto) 0.6 Eos # (Auto) 0.6 H Baso # (Auto) 0.0 Abs Immat Gran (auto) 0.09 H Absolute Neuts (auto) 7.4 H Absolute Nucleated RBC 0.220 H Nucleated RBC % 2.3 H PT 19.7 H INR 1.6 Sodium 129 L Potassium 5.0 Chloride 97 L Carbon Dioxide 17 L Anion Gap 15 H BUN 101 H Creatinine 5.67 H Estim Creat Clear Calc 17 Estimated GFR 10 L Glucose 111 H POC Capillary Glucose 135 H Calcium 7.3 L Phosphorus 9.2 H Magnesium 1.9 Total Bilirubin 0.7 AST 693 H ALT 970 H Alkaline Phosphatase 360 H Ammonia < 9 L Total Protein 5.0 L Albumin 2.6 L Ur Random Sodium 21 Glomerular Base Memb Ab Hep Bs Antigen Negative Hep Bs Antibody Negative Ur L.pneumophila Ag 12/22/24 12/22/24 08:16 12:08 WBC RBC Hgb Hct MCV MCH MCHC RDW Plt Count MPV Immature Gran % (Auto) Neut % (Auto) Lymph % (Auto) [place] % (Auto) Eos % (Auto) Baso % (Auto) Lymph # (Auto) [place] # (Auto) Eos # (Auto) Baso # (Auto) Abs Immat Gran (auto) Absolute Neuts (auto) Absolute Nucleated RBC Nucleated RBC % PT INR Sodium Potassium Chloride Carbon Dioxide Anion Gap BUN Creatinine Estim Creat Clear Calc Estimated GFR Glucose POC Capillary Glucose 108 H 100 Calcium Phosphorus Magnesium Total Bilirubin AST ALT Alkaline Phosphatase Ammonia Total Protein Albumin Ur Random Sodium Glomerular Base Memb Ab Hep Bs Antigen Hep Bs Antibody Ur L.pneumophila Ag
--- NOTE | 2024-12-22 15:47 | W.PM.PROC2 ---
Procedure Note - Detailed Date of Procedure 12/22/24 Pre-op Diagnosis Acute on chronic renal failure, congestive heart failure Post-op Diagnosis Same Procedure Performed Right IJ Jeff dialysis catheter placement using ultrasound guidance Surgeon Jose Ham, DO Anesthesia Local (1% Lidocaine) Indications This is a 64-year-old man who has been hospitalized with acute on chronic renal failure, pneumonia, and congestive heart failure. Nephrology has been following patient and he is now in need of hemodialysis. The patient was assessed and decision was made to proceed with bedside temporary Jeff dialysis catheter placement. Findings SonoSite ultrasound was used to identify the right internal jugular vein. This was identified as a compressible vessel just lateral to the pulsatile carotid artery. The 18 gauge introducer needle was advanced under ultrasound guidance directly into the lumen of the right internal jugular vein. Dark nonpulsatile blood was aspirated. The guidewire then advanced with ease. A 16 cm 12 English triple-lumen dialysis catheter was then placed. Chest x-ray is pending to confirm placement. Description of Procedure Procedure, risks, benefits, and alternatives were discussed with the patient. Written consent was obtained and placed in chart prior to procedure. Patient was placed supine in hospital bed and placed in slight Trendelenburg position. Time-out was done to confirm patient and procedure. The right neck and chest area was prepped and draped in sterile fashion using chlorhexidine prep. SonoSite ultrasound was used to identify the right internal jugular vein. 1% lidocaine was infiltrated directly over this area. An 18 gauge introducer needle was advanced under ultrasound guidance directly into the right internal jugular vein. Dark nonpulsatile blood was aspirated. A 0.035 in guidewire was then advanced through the needle. The guidewire advanced smoothly. The needle was then withdrawn leaving the guidewire in place. A small noe incision was made at the insertion site using an 11 blade scalpel. The blue dilators were then advanced over the guidewire to dilate the vessel. The 12 English triple lumen 16 cm dialysis catheter was then advanced over the guidewire until it was in place. The guidewire was removed. All 3 lumens were then aspirated and flushed with sterile saline. All 3 lumens function with ease. Caps were placed over the lumens. Glue was placed at the insertion site and the catheter was secured in place using 3 0 nylon simple interrupted sutures. A Tegaderm dressing was then applied over top. The patient was then sat up in bed and chest x-ray was ordered to confirm placement. Implants 12 English triple-lumen 16 cm dialysis catheter Estimated Blood Loss 5 Urine Output 350 Complications No immediate complications Condition Stable Disposition No change [facility] Billing Surgery - Charge Forward: Surgery Billing
[2024-12-22 16:58] LABS: Mycoplasma IgM Antibody Titer 272 U/mL
--- NOTE | 2024-12-22 17:11 | P.PNNP_ITS ---
Progress Note: A&P Assessment and Plan (1) Acute kidney injury: Code(s): N17.9 - Acute kidney failure, unspecified Status: Acute Assessment and Plan: * ongoing worsening noted... 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 * plan HD today, tomorrow and likely day after * attempt renal biopsy if able - possibly tomorrow * follow trend of repeat labs and UOP for potential renal recovery (2) Stage 3b chronic kidney disease: Code(s): N18.32 - Chronic kidney disease, stage 3b Status: Chronic Assessment and Plan: * baseline creatinine runs around 1.7 - 2.3mg/dl * suspected to be secondary to diabetes and hypertension * HOWEVER, positive noted in association with hematuria and nephrotic range proteinuria as well as rise in creatinine to 2.76mg/dl noted on outpatient testing in early Oct 2024 * renal biopsy recommended during office visit with Dr. Britt at that time (but apparently was never done) (3) Pneumonia: Code(s): J18.9 - Pneumonia, unspecified organism Status: Acute Assessment and Plan: * admission CXR with bibasilar infiltrates * mildly elevated WBC but no fevers * on empiric antibiotics * follow culture data (4) Heart failure with mildly reduced ejection fraction: Code(s): I50.22 - Chronic systolic (congestive) heart failure Status: Acute Assessment and Plan: * known history * repeat Echo (12/18) noted: * severely reduced systolic function with EF 25-30% * diastolic dysfunction * mild valvular disease * moderate pulmonary hypertension * CXR with cardiomegaly, bibasilar infiltrates and small pleural effusions * Entresto and diuretics on hold given #1 * follow daily weights and volume status closely * Cardiology following (5) Transaminitis: Code(s): R74.01 - Elevation of levels of liver transaminase levels Status: Deleted Assessment and Plan: * normal earlier in November 2024 * also continues to worsen * hepatitis panel negative * abd US showing cholelithiasis and mildly dilated CBD; liver is normal in appearance * holding statin * Gastroenterology following * s/p liver biopsy on 12/21 * follow trend (6) Anemia: Code(s): D64.9 - Anemia, unspecified Status: Acute Assessment and Plan: * related to ELEANOR, CKD, and acute illness * follow trend of H/H * Epogen with HD if needed (7) Peripheral vascular disease: Code(s): I73.9 - Peripheral vascular disease, unspecified Status: Acute Assessment and Plan: * known history * on zetia but statin on hold given elevated LFTs * complicated by ongoing smoking * arterial dopplers noted (8) Diabetes mellitus type 2 with complications: Code(s): E11.8 - Type 2 diabetes mellitus with unspecified complications Status: Chronic Assessment and Plan: * follow accu-cheks * glycemic control per hospitalist Will continue to follow. L Subjective Date/time seen: 12/22/24 17:11 Interval history: Follow-up for acute kidney injury/acute renal failure on chronic kidney disease. Tolerating dialysis treatment at the time of my visit (seen on HD at 5:00PM); temporary dialysis catheter placed earlier this afternoon; has required sedation due to flucuting mental status since earlier this morning; resting comfortably when seen; liver biopsy done earlier today. Exam 2 Narrative: General: elderly male in NAD Heart: normal S1 and S2; no rub Lungs: coarse breath sounds Abdomen: obese but soft, nontender, nondistended, positive bowel sounds Extremities: no cyanosis or clubbing; 2+ edema in RLE; s/p left AKA Skin: no rash Objective Data Vital Signs Vital Signs: Vital Signs Temp Pulse Resp BP Pulse Ox 12/22/24 17:00 117 H 113/77 12/22/24 16:45 116 H 105/75 12/22/24 16:33 114 H 105/78 12/22/24 16:24 97.2 F L 113 H 16 108/73 100 12/22/24 14:00 97.5 F L 115 H 16 105/81 97 12/22/24 10:30 97.4 F L 112 H 16 99/69 L 93 12/22/24 08:00 114 H 12/22/24 05:48 97.5 F L 112 H 16 109/66 100 12/22/24 04:00 98 12/22/24 00:00 98 12/21/24 20:59 97.7 F 112 H 16 101/66 96 12/21/24 20:00 113 H Intake/Output Intake/Output: Intake & Output 12/19/24 12/20/24 12/21/24 12/22/24 23:59 23:59 23:59 23:59 Intake Total 3610 837 450 Output Total 1450 0 500 650 Balance 2160 837 -50 -650 Meds/Results Medications: Active Medications Generic Name Dose Route Start Last Admin Trade Name Freq PRN Reason Stop Dose Admin Acetaminophen 650 mg 12/17/24 16:18 12/18/24 20:54 Acetaminophen 325 Mg Tablet PO 650 mg Q4H PRN Administration Mild Pain (1-3) or Fever Hydrocodone Bitart/Acetaminophen 1 tab 12/17/24 19:37 12/19/24 15:50 Hydrocodone/Acetaminophen (*Crx) 5-325 Mg Tablet PO 1 tab Q8H PRN Administration pain 4-6 Aspirin 81 mg 12/20/24 08:00 12/22/24 16:43 Aspirin 81 Mg Chewable Tablet PO Not Given DAILY@0800 REGINA Calcium Carbonate 200 mg 12/18/24 22:39 Calcium Carbonate (Tums) 500 Mg (200 Mg Elemental) PO Q6H PRN Indigestion Dextrose 12.5 gm 12/17/24 22:39 Dextrose 50% 25 Gm/50 Ml Syringe IV PUSH PRN PRN Hypoglycemia Protocol Diphenhydramine HCl 12.5 mg 12/18/24 14:23 12/21/24 21:02 Diphenhydramine Hcl Elixir 12.5 Mg/5 Ml Udc PO 12.5 mg Q6H PRN Administration Itching Doxycycline Hyclate 100 mg 12/17/24 22:45 12/22/24 16:36 Doxycycline Hyclate 100 Mg Tablet PO 12/24/24 09:01 Not Given Q12HR REGINA Ezetimibe 10 mg 12/18/24 09:00 12/22/24 16:37 Ezetimibe 10 Mg Tablet PO Not Given DAILY REGINA Glucagon 1 mg 12/17/24 22:39 Glucagon For Inj 1 Mg Vial IM PRN PRN Hypoglycemia Protocol Glucose 15 gm 12/17/24 22:39 Glucose Oral Gel 15 Gm Of Glucse In 37.5 Gm Tube PO PRN PRN Hypoglycemia Protocol Heparin Sodium (Porcine) 5,000 units 12/18/24 09:00 12/22/24 07:55 Heparin Sodium 5,000 Units/Ml Vial SUB-Q Not Given Q12HR REGINA Dextrose 1,000 mls @ 100 mls/hr 12/17/24 22:39 Dextrose 5% 1,000 Ml IVPB PRN PRN Hypoglycemia Protocol Ceftriaxone Sodium 1 gm in 50 mls @ 100 mls/hr 12/17/24 23:00 12/22/24 00:38 Rocephin 1 Gm/Ns 50 Ml IVPB 12/23/24 23:29 100 mls/hr Q24H REGINA Administration Albumin Human 50 mls @ 999 mls/hr 12/22/24 05:43 Albutein IVPB 01/21/25 05:42 Q10M PRN HYPOTENSION Albumin Human 100 mls @ 60 mls/hr 12/22/24 17:08 12/22/24 17:18 Albutein IVPB 12/22/24 18:47 60 mls/hr ONCE ONE Administration Insulin Aspart 2 - 5 units 12/18/24 11:30 12/22/24 16:38 Insulin Aspart (*Bkc) 100 Units/Ml SUB-Q Not Given ACHS REGINA Protocol Levothyroxine Sodium 250 mcg 12/21/24 06:30 12/22/24 06:42 Levothyroxine Sodium 125 Mcg Tablet PO 250 mcg [id number]@0630 REGINA Administration Levothyroxine Sodium 125 mcg 12/26/24 06:30 Levothyroxine Sodium 125 Mcg Tablet PO Mitchell@0630 REGINA Lorazepam 0.5 mg 12/22/24 09:11 12/22/24 14:49 Lorazepam Inj (*Crx) 2 Mg/Ml Vial IV PUSH 0.5 mg Q6H PRN Administration Anxiety/agitation/procedures Metoprolol Succinate 50 mg 12/18/24 09:00 12/19/24 09:01 Metoprolol Succinate Ext Rel 50 Mg Tabcr PO 50 mg DAILY REGINA Administration Nicotine 1 patch 12/17/24 22:45 12/22/24 16:37 Nicotine (*Pbkc) 21 Mg Patch TRANSDERM Not Given DAILY REGINA Ondansetron HCl 4 mg 12/17/24 16:18 12/19/24 21:24 Ondansetron Inj 4 Mg/2 Ml Vial IV PUSH 4 mg Q4H PRN Administration Nausea Oxycodone HCl 5 mg 12/22/24 09:12 Oxycodone Hcl (*Crx) 5 Mg Tab Ir PO Q4H PRN Pain Rated 7-10 Sacubitril/Valsartan 1 tab 12/17/24 21:00 12/18/24 08:25 Sacubitril/Valsartan 24-26 Mg Tablet PO 1 tab Q12HR REGINA Administration Sertraline HCl 100 mg 12/18/24 09:00 12/22/24 16:37 Sertraline Hcl 50 Mg Tablet PO Not Given DAILY [facility] Sodium Zirconium Cyclosilicate 10 gm 12/21/24 15:00 12/22/24 16:43 Sodium Zirconium Cyclosilicate 10 Gm Powd.Pack PO Not Given TID@1000,1500,2200 [facility] Radiology Results: ITS Impressions Lumbar Spine X-Ray 12/17/24 15:44 IMPRESSION: Anterior loss of volume of L1 which is most likely chronic. MRI evaluation advised. Otherwise, No acute osseous abnormality lumbar spine. Degenerative disc disease at the level of L4-L5. Venous Doppler Study 12/18/24 13:13 IMPRESSION: 1. No deep venous thrombosis. Abdomen Ultrasound 12/18/24 13:18 IMPRESSION: 1. Cholelithiasis. No evidence of acute cholecystitis. 2. Mildly dilated common duct. Renal Ultrasound 12/18/24 13:21 IMPRESSION: 1. Normal kidney sizes. No hydronephrosis. Lumbar Spine MRI 12/18/24 15:23 IMPRESSION: Limited examination secondary to motion artifact. No abnormal signal intensity or contrast enhancement is identified within the vertebral body of L1 to suggest acute traumatic injury. Within the visualized intervertebral disc spaces, moderate degenerative disease is noted, as detailed above. Duplex Scan Lower Extremity Artery 12/18/24 21:35 IMPRESSION: Abnormal peak systolic velocity and waveform morphology suggesting a popliteal or tibioperoneal trunk stenosis. Three-vessel blood flow into the right calf with single vessel blood flow into the right foot (on the submitted images) MRCP 12/21/24 08:48 IMPRESSION: 1. Study terminated at patient request prior to obtaining the normal complement of sequences including the MRCP images and which along with some motion artifact on the obtained sequences moderately limits evaluation. 2. Anasarca with small left and moderate-sized right pleural effusions, small amount of ascites and extensive body wall, as enteric and retroperitoneal edema. 3. Normal-appearing gallbladder with no evident cholelithiasis and with no intra or extrahepatic biliary ductal dilation. Sensitivity for tiny gallstones which were suggested on prior ultrasound is limited by motion artifact. 4. Cardiomegaly. Liver Biopsy Ultrasound 12/22/24 10:51 IMPRESSION: 1. Successful Ultrasound-guided random liver biopsy. Chest X-Ray 12/22/24 15:50 IMPRESSION: Interval placement of a nontunneled right internal jugular hemodialysis catheter, in good position and ready for immediate use. Mild pulmonary vascular congestion with small bilateral pleural effusions Labs Labs: Laboratory Tests 12/22/24 05:37 12/22/24 05:37 Calcium 7.3 L Phosphorus 9.2 H Magnesium 1.9 Total Bilirubin 0.7 AST 693 H ALT 970 H Alkaline Phosphatase 360 H Ammonia < 9 L Total Protein 5.0 L Albumin 2.6 L
[2024-12-22] MEDS: ALBUMIN HUMAN 25% 25 GM/100 ML 100 ML IVPB (17:18)
[2024-12-22 18:54] LABS: Pneumococcal Antigen Urine NOT DETECTED
[2024-12-22] MEDS: HEPARIN SODIUM 1,000 UNITS/ML VIAL 4000 UNITS IV PUSH (19:23)
--- NOTE | 2024-12-22 19:45 | PC.NURSE ---
back from dialysis at 19:45. 1L removed. sheriffs officer states pt will receive dialysis again tomorrow
[2024-12-22] MEDS: DOXYCYCLINE HYCLATE 100 MG TABLET PO (20:00)
[2024-12-22] MEDS: SODIUM ZIRCONIUM CYCLOSILICATE 10 GM POWD.PACK PO (20:00)
[2024-12-22] MEDS: diphenhydrAMINE HCL ELIXIR 12.5 MG/5 ML UDC PO (20:00)
[2024-12-22] MEDS: oxyCODONE HCL (*CRX) 5 MG TAB IR PO (20:01)
[2024-12-22 20:22] LABS: Glucose Point of Care 92 mg/dl (65-105)
[2024-12-23] VITALS (25 sets, daily range): BP systolic 100–119; BP diastolic 70–87; PULSE 91–125; RESP 14–20; TEMP 35.7–37.4; O2SAT 92–98; BMI 33.2
[2024-12-23] MEDS: diphenhydrAMINE HCL ELIXIR 12.5 MG/5 ML UDC PO (03:07)
[2024-12-23] MEDS: LORazepam INJ (*CRX) 2 MG/ML VIAL 0.5 MG IV PUSH ×3 (03:26→17:49)
[2024-12-23 04:57] LABS: Hepatitis B Core Ab Total NON-REACTIVE (NON-REACTIVE)
[2024-12-23] MEDS: LEVOTHYROXINE SODIUM 125 MCG TABLET 250 MCG PO (04:58)
--- NOTE | 2024-12-23 06:02 | P.PNCROSS_ITS ---
Event Note Event Note Event Note: Notified by nurse the patient's heart rate has been sustaining above 120. Prev iously metoprolol succinate 50 mg daily was placed on hold due to low blood pressures. He has now been sustaining an acceptable blood pressure. Advised to restart metoprolol when this is the case by Cardiology. Restarting at a lower dose metoprolol tartrate 12.5 mg p.o. b.i.d. with continued monitoring.
[2024-12-23] MEDS: METOPROLOL TARTRATE 12.5 MG TABLET PO (06:14)
[2024-12-23 06:20] LABS: Basophils Absolute Auto 0.1 K/mm3 (0.0-0.1); Basophils Percent Auto 0.9 % (0.2-1.2); Eosinophils Absolute Auto 0.6 K/mm3 (0-0.3); Eosinophils Percent Auto 7.7 % (0-4.4); Hematocrit 36.4 % (42.0-52.0); Hemoglobin 11.1 g/dL (14.0-18.0); Immature Granulocyte Absolute 0.04 K/mm3 (0.00-0.031); Immature Granulocyte Percent A 0.5 % (0-0.5); Lymphocytes Absolute Auto 0.95 K/mm3 (0.9-3.2); Lymphocytes Percent Auto 11.7 % (18.3-44.2); Mean Corpuscular HGB Conc 30.5 g/dl (32-36); Mean Corpuscular Hemoglobin 25.1 pg (26-34); Mean Corpuscular Volume 82.4 fl (80-100); Mean Platelet Volume 9.2 fl (7.4-10.4); Monocytes Absolute Auto 0.6 K/mm3 (0.1-0.6); Monocytes Percent Auto 6.8 % (2.6-8.5); Neutrophils Absolute Auto 5.9 K/mm3 (1.3-6.7); Neutrophils Percent Auto 72.4 % (45.5-73.1); Nucleated Red Blood Cells Perc 0.7 % (0.0-0.2); Platelet Count Result 226 k/mm3 (150-375); Red Blood Count 4.42 M/mm3 (4.6-6.20); Red Cell Distribution Width 19.1 % (11.5-14.5); White Blood Count 8.1 K/mm3 (4.5-10.0)
[2024-12-23 06:38] LABS: INR 1.4; Prothrombin Time 17.9 Seconds (11.1-14.7)
[2024-12-23 06:40] LABS: Alanine Aminotransferase 618 U/L (6-50); Albumin Level 2.5 g/dL (3.5-5.1); Alkaline Phosphatase 303 U/L (38-126); Anion Gap 10 mmol/L (4-12); Aspartate Amino Transferase 330 U/L (17-59); Blood Urea Nitrogen 76 mg/dL (9-20); Calcium 7.7 mg/dL (8.4-10.2); Carbon Dioxide 25 mmol/L (22-30); Chloride 99 mmol/L (98-107); Estimated CRCL calculation 22 ml/min; Estimated Glomerular Filt Rate 14; Glucose 90 mg/dL (65-110); Magnesium 1.9 mg/dL (1.6-2.3); Phosphorus 6.7 mg/dL (2.5-4.5); Potassium 3.8 mmol/L (3.4-5.0); Sodium 134 mmol/L (137-145)
[2024-12-23 07:37] LABS: Glucose Point of Care 114 mg/dl (65-105)
[2024-12-23] MEDS: oxyCODONE HCL (*CRX) 5 MG TAB IR PO ×3 (08:31→21:24)
[2024-12-23] MEDS: SERTRALINE HCL 50 MG TABLET 100 MG PO (08:32)
[2024-12-23] MEDS: EZETIMIBE 10 MG TABLET PO (08:32)
[2024-12-23] MEDS: DOXYCYCLINE HYCLATE 100 MG TABLET PO ×2 (08:32→21:14)
--- NOTE | 2024-12-23 09:55 | PM.PNCARD ---
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 Toprol has been resumed as BP improved. -Volume management with hemodialysis. Atrial fibrillation -This is a new diagnosis for patient. Will pursue rate control for now. Increase metoprolol to 25mg q8h for better rate control. Recommend Eliquis 5mg BID when okay for anticoagulation. Hyperlipidemia -Continue Zetia. Statin on hold due to elevated liver enzymes. ELEANOR on CKD -Scheduled for dialysis today. Transaminitis -GI consulted Peripheral vascular disease -Continue Zetia. Statin on hold due to elevated liver enzymes. -Continue ASA. Moderate non-obstructive CAD per [facility] 02/2024 -Continue Zetia. Statin on hold due to elevated liver enzymes. -Continue ASA. 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 He currently no longer feels weak and denies any chest discomfort shortness of breath. He currently has no complaints. Date of service 12/21: Sleepy at the time of my visit; family at bedside. Renal function worsening. Date of service 12/23/2024: Complains of pain all over. He denies feeling palpitations, shortness of breath, chest pain. Review of Systems Cardiovascular: Cardiovascular: Reports as per HPI Respiratory: Respiratory: Reports as per HPI Exam Const: General: comfortable Other: Appears ill HENMT: Mouth: Yes moist mucous membranes Eyes: EOM: EOMs intact bilaterally Neck: Neck: no JVD Resp: Effort & Inspection: normal respiratory effort Auscultation: clear to auscultation bilaterally and diminished lung sounds Cardio: Rate: tachycardic Rhythm: abnormal rhythm irregularly irregular Neuro: Speech: normal speech Other: Sleepy Extrem: Other: Left AKA and right TMA Psych: Affect: normal affect Objective Data Vital Signs Vital Signs: Vital Signs - 24 hr 12/22/24 10:30 12/22/24 12:00 12/22/24 14:00 Temperature 36.3 C L 36.4 C L Pulse Rate 112 H 114 H 115 H Respiratory Rate 16 16 Blood Pressure 99/69 L 105/81 Pulse Oximetry 93 97 Oxygen Delivery 12/22/24 16:00 12/22/24 16:24 12/22/24 16:33 Temperature 36.2 C L Pulse Rate 114 H 113 H 114 H Respiratory Rate 16 Blood Pressure 108/73 105/78 Pulse Oximetry 100 Oxygen Delivery 12/22/24 16:45 12/22/24 17:00 12/22/24 17:15 Temperature Pulse Rate 116 H 117 H 117 H Respiratory Rate Blood Pressure 105/75 113/77 107/79 Pulse Oximetry Oxygen Delivery 12/22/24 17:30 12/22/24 17:45 12/22/24 18:00 Temperature Pulse Rate 119 H 116 H 118 H Respiratory Rate Blood Pressure 108/46 L 119/78 105/78 Pulse Oximetry Oxygen Delivery 12/22/24 18:15 12/22/24 18:30 12/22/24 18:45 Temperature Pulse Rate 117 H 118 H 118 H Respiratory Rate Blood Pressure 108/78 118/87 113/85 Pulse Oximetry Oxygen Delivery 12/22/24 19:00 12/22/24 19:05 12/22/24 19:10 Temperature 36.6 C Pulse Rate 115 H 117 H 117 H Respiratory Rate 16 Blood Pressure 117/85 119/86 119/87 Pulse Oximetry 97 Oxygen Delivery 12/22/24 20:00 12/22/24 20:00 12/22/24 21:39 Temperature 36.6 C Pulse Rate 118 H 117 H Respiratory Rate 14 Blood Pressure 129/86 Pulse Oximetry 96 Oxygen Delivery Room Air 12/23/24 00:00 12/23/24 04:00 12/23/24 05:54 Temperature 36.7 C Pulse Rate 119 H 120 H 121 H Respiratory Rate 14 Blood Pressure 114/70 Pulse Oximetry 92 Oxygen Delivery 12/23/24 06:14 Temperature Pulse Rate 121 H Respiratory Rate Blood Pressure Pulse Oximetry Oxygen Delivery Intake/Output Intake/Output: Intake & Output 12/20/24 12/21/24 12/22/24 12/23/24 23:59 23:59 23:59 23:59 Intake Total 837 450 220 150 Output Total 0 500 1650 2000 Balance 171 -08 -7749 -2954 Meds/Results Medications: Active Medications Generic Name Dose Route Start Last Admin Trade Name Freq PRN Reason Stop Dose Admin Acetaminophen 650 mg 12/17/24 16:18 12/18/24 20:54 Acetaminophen 325 Mg Tablet PO 650 mg Q4H PRN Administration Mild Pain (1-3) or Fever Hydrocodone Bitart/Acetaminophen 1 tab 12/17/24 19:37 12/19/24 15:50 Hydrocodone/Acetaminophen (*Crx) 5-325 Mg Tablet PO 1 tab Q8H PRN Administration pain 4-6 Aspirin 81 mg 12/20/24 08:00 12/23/24 07:46 Aspirin 81 Mg Chewable Tablet PO Not Given DAILY@0800 REGINA Calcium Carbonate 200 mg 12/18/24 22:39 Calcium Carbonate (Tums) 500 Mg (200 Mg Elemental) PO Q6H PRN Indigestion Dextrose 12.5 gm 12/17/24 22:39 Dextrose 50% 25 Gm/50 Ml Syringe IV PUSH PRN PRN Hypoglycemia Protocol Diphenhydramine HCl 12.5 mg 12/18/24 14:23 12/23/24 03:07 Diphenhydramine Hcl Elixir 12.5 Mg/5 Ml Udc PO 12.5 mg Q6H PRN Administration Itching Doxycycline Hyclate 100 mg 12/17/24 22:45 12/23/24 08:32 Doxycycline Hyclate 100 Mg Tablet PO 12/24/24 09:01 100 mg Q12HR REGINA Administration Ezetimibe 10 mg 12/18/24 09:00 12/23/24 08:32 Ezetimibe 10 Mg Tablet PO 10 mg DAILY REGINA Administration Glucagon 1 mg 12/17/24 22:39 Glucagon For Inj 1 Mg Vial IM PRN PRN Hypoglycemia Protocol Glucose 15 gm 12/17/24 22:39 Glucose Oral Gel 15 Gm Of Glucse In 37.5 Gm Tube PO PRN PRN Hypoglycemia Protocol Heparin Sodium (Porcine) 5,000 units 12/18/24 09:00 12/23/24 08:33 Heparin Sodium 5,000 Units/Ml Vial SUB-Q Not Given Q12HR REGINA Dextrose 1,000 mls @ 100 mls/hr 12/17/24 22:39 Dextrose 5% 1,000 Ml IVPB PRN PRN Hypoglycemia Protocol Ceftriaxone Sodium 1 gm in 50 mls @ 100 mls/hr 12/17/24 23:00 12/22/24 23:22 Rocephin 1 Gm/Ns 50 Ml IVPB 12/23/24 23:29 Infused Q24H REGINA Infusion Albumin Human 50 mls @ 999 mls/hr 12/22/24 05:43 Albutein IVPB 01/21/25 05:42 Q10M PRN HYPOTENSION Insulin Aspart 2 - 5 units 12/18/24 11:30 12/23/24 07:45 Insulin Aspart (*Bkc) 100 Units/Ml SUB-Q Not Given ACHS [facility] Protocol Levothyroxine Sodium 250 mcg 12/21/24 06:30 12/23/24 04:58 Levothyroxine Sodium 125 Mcg Tablet PO 250 mcg [id number]@0630 REGINA Administration Levothyroxine Sodium 125 mcg 12/26/24 06:30 Levothyroxine Sodium 125 Mcg Tablet PO Mitchell@0630 REGINA Lorazepam 0.5 mg 12/22/24 09:11 12/23/24 09:23 Lorazepam Inj (*Crx) 2 Mg/Ml Vial IV PUSH 0.5 mg Q6H PRN Administration Anxiety/agitation/procedures Metoprolol Succinate 50 mg 12/18/24 09:00 12/19/24 09:01 Metoprolol Succinate Ext Rel 50 Mg Tabcr PO 50 mg DAILY REGINA Administration Metoprolol Tartrate 12.5 mg 12/23/24 06:05 12/23/24 06:14 Metoprolol Tartrate 12.5 Mg Tablet PO 12.5 mg Q12HR REGINA Administration Nicotine 1 patch 12/17/24 22:45 12/23/24 08:34 Nicotine (*Pbkc) 21 Mg Patch TRANSDERM Not Given DAILY [facility] Ondansetron HCl 4 mg 12/17/24 16:18 12/19/24 21:24 Ondansetron Inj 4 Mg/2 Ml Vial IV PUSH 4 mg Q4H PRN Administration Nausea Oxycodone HCl 5 mg 12/22/24 09:12 12/23/24 08:31 Oxycodone Hcl (*Crx) 5 Mg Tab Ir PO 5 mg Q4H PRN Administration Pain Rated 7-10 Sacubitril/Valsartan 1 tab 12/17/24 21:00 12/18/24 08:25 Sacubitril/Valsartan 24-26 Mg Tablet PO 1 tab Q12HR REGINA Administration Sertraline HCl 100 mg 12/18/24 09:00 12/23/24 08:32 Sertraline Hcl 50 Mg Tablet PO 100 mg DAILY REGINA Administration Radiology Results: ITS Impressions Lumbar Spine X-Ray 12/17/24 15:44 IMPRESSION: Anterior loss of volume of L1 which is most likely chronic. MRI evaluation advised. Otherwise, No acute osseous abnormality lumbar spine. Degenerative disc disease at the level of L4-L5. Venous Doppler Study 12/18/24 13:13 IMPRESSION: 1. No deep venous thrombosis. Abdomen Ultrasound 12/18/24 13:18 IMPRESSION: 1. Cholelithiasis. No evidence of acute cholecystitis. 2. Mildly dilated common duct. Renal Ultrasound 12/18/24 13:21 IMPRESSION: 1. Normal kidney sizes. No hydronephrosis. Lumbar Spine MRI 12/18/24 15:23 IMPRESSION: Limited examination secondary to motion artifact. No abnormal signal intensity or contrast enhancement is identified within the vertebral body of L1 to suggest acute traumatic injury. Within the visualized intervertebral disc spaces, moderate degenerative disease is noted, as detailed above. Duplex Scan Lower Extremity Artery 12/18/24 21:35 IMPRESSION: Abnormal peak systolic velocity and waveform morphology suggesting a popliteal or tibioperoneal trunk stenosis. Three-vessel blood flow into the right calf with single vessel blood flow into the right foot (on the submitted images) MRCP 12/21/24 08:48 IMPRESSION: 1. Study terminated at patient request prior to obtaining the normal complement of sequences including the MRCP images and which along with some motion artifact on the obtained sequences moderately limits evaluation. 2. Anasarca with small left and moderate-sized right pleural effusions, small amount of ascites and extensive body wall, as enteric and retroperitoneal edema. 3. Normal-appearing gallbladder with no evident cholelithiasis and with no intra or extrahepatic biliary ductal dilation. Sensitivity for tiny gallstones which were suggested on prior ultrasound is limited by motion artifact. 4. Cardiomegaly. Liver Biopsy Ultrasound 12/22/24 10:51 IMPRESSION: 1. Successful Ultrasound-guided random liver biopsy. Chest X-Ray 12/22/24 15:50 IMPRESSION: Interval placement of a nontunneled right internal jugular hemodialysis catheter, in good position and ready for immediate use. Mild pulmonary vascular congestion with small bilateral pleural effusions Labs Labs: Laboratory Results - last 24 hr 12/17/24 12/18/24 12/19/24 23:07 03:16 04:53 WBC RBC Hgb Hct MCV MCH MCHC RDW Plt Count MPV Immature Gran % (Auto) Neut % (Auto) Lymph % (Auto) [place] % (Auto) Eos % (Auto) Baso % (Auto) Lymph # (Auto) [place] # (Auto) Eos # (Auto) Baso # (Auto) Abs Immat Gran (auto) Absolute Neuts (auto) Absolute Nucleated RBC Nucleated RBC % PT INR Sodium Potassium Chloride Carbon Dioxide Anion Gap BUN Creatinine Estim Creat Clear Calc Estimated GFR Glucose POC Capillary Glucose Calcium Phosphorus Magnesium Total Bilirubin AST ALT Alkaline Phosphatase Total Protein Albumin Glomerular Base Memb Ab <1.0 Hep B Core Total Ab Mycoplasma pneumon IgM 272 Urine Pneumococcal Ag Not detected 12/22/24 12/22/24 12/22/24 05:37 12:08 20:06 WBC RBC Hgb Hct MCV MCH MCHC RDW Plt Count MPV Immature Gran % (Auto) Neut % (Auto) Lymph % (Auto) [place] % (Auto) Eos % (Auto) Baso % (Auto) Lymph # (Auto) [place] # (Auto) Eos # (Auto) Baso # (Auto) Abs Immat Gran (auto) Absolute Neuts (auto) Absolute Nucleated RBC Nucleated RBC % PT INR Sodium Potassium Chloride Carbon Dioxide Anion Gap BUN Creatinine Estim Creat Clear Calc Estimated GFR Glucose POC Capillary Glucose 100 92 Calcium Phosphorus Magnesium Total Bilirubin AST ALT Alkaline Phosphatase Total Protein Albumin Glomerular Base Memb Ab Hep B Core Total Ab Non-reactive Mycoplasma pneumon IgM Urine Pneumococcal Ag 12/23/24 12/23/24 05:30 07:31 WBC 8.1 RBC 4.42 L Hgb 11.1 L Hct 36.4 L MCV 82.4 MCH 25.1 L MCHC 30.5 L RDW 19.1 H Plt Count 226 MPV 9.2 Immature Gran % (Auto) 0.5 Neut % (Auto) 72.4 Lymph % (Auto) 11.7 L [place] % (Auto) 6.8 Eos % (Auto) 7.7 H Baso % (Auto) 0.9 Lymph # (Auto) 0.95 [place] # (Auto) 0.6 Eos # (Auto) 0.6 H Baso # (Auto) 0.1 Abs Immat Gran (auto) 0.04 H Absolute Neuts (auto) 5.9 Absolute Nucleated RBC 0.060 H Nucleated RBC % 0.7 H PT 17.9 H INR 1.4 Sodium 134 L Potassium 3.8 Chloride 99 Carbon Dioxide 25 Anion Gap 10 BUN 76 H D Creatinine 4.36 H Estim Creat Clear Calc 22 Estimated GFR 14 L Glucose 90 POC Capillary Glucose 114 H Calcium 7.7 L Phosphorus 6.7 H Magnesium 1.9 Total Bilirubin 1.0 AST 330 H ALT 618 H Alkaline Phosphatase 303 H Total Protein 5.0 L Albumin 2.5 L Glomerular Base Memb Ab Hep B Core Total Ab Mycoplasma pneumon IgM Urine Pneumococcal Ag Quality VTE Prophylaxis VTE prophylaxis: pharmacologic ordered
[2024-12-23 11:34] LABS: ANCA Screen NEGATIVE (NEGATIVE)
[2024-12-23 12:12] LABS: Glucose Point of Care 133 mg/dl (65-105)
--- NOTE | 2024-12-23 13:54 | PC.NURSE ---
report called to Elin PEREZcounter attendant RN.
--- NOTE | 2024-12-23 14:00 | PC.NURSE ---
To dialysis via bed.
--- NOTE | 2024-12-23 14:31 | P.PNNP_ITS ---
Progress Note: A&P Assessment and Plan (1) Acute kidney injury: Code(s): N17.9 - Acute kidney failure, unspecified Status: Acute Assessment and Plan: * ongoing worsening noted... * as noted on admission * evaluation to date noted: * renal u/s normal * urine eosinophils negative * nephrotic range proteinuria * prerenal urine electrolytes * CPK mildly elevated (but not enought to affect kidney function) * further serologies pending * outpatient evaluation noted - normal complements but hematuria with positive * initated [employer]/HD * HD yesterday * HD today * plan HD tomorrow * s/p renal biopsy on 12/22 - possible preliminary results tomorrow * follow trend of repeat labs and UOP for potential renal recovery (2) Stage 3b chronic kidney disease: Code(s): N18.32 - Chronic kidney disease, stage 3b Status: Chronic Assessment and Plan: * baseline creatinine runs around 1.7 - 2.3mg/dl * suspected to be secondary to diabetes and hypertension * HOWEVER, positive noted in association with hematuria and nephrotic range proteinuria as well as rise in creatinine to 2.76mg/dl noted on outpatient testing in early Oct 2024 * renal biopsy recommended during office visit with Dr. Britt at that time (but apparently was never done) (3) Pneumonia: Code(s): J18.9 - Pneumonia, unspecified organism Status: Acute Assessment and Plan: * admission CXR with bibasilar infiltrates * mildly elevated WBC but no fevers * on empiric antibiotics * follow culture data (4) Heart failure with mildly reduced ejection fraction: Code(s): I50.22 - Chronic systolic (congestive) heart failure Status: Acute Assessment and Plan: * known history * repeat Echo (12/18) noted: * severely reduced systolic function with EF 25-30% * diastolic dysfunction * mild valvular disease * moderate pulmonary hypertension * CXR with cardiomegaly, bibasilar infiltrates and small pleural effusions * Entresto and diuretics on hold given #1 * follow daily weights and volume status closely * Cardiology following (5) Transaminitis: Code(s): R74.01 - Elevation of levels of liver transaminase levels Status: Deleted Assessment and Plan: * normal earlier in November 2024 * also continues to worsen * hepatitis panel negative * abd US showing cholelithiasis and mildly dilated CBD; liver is normal in appearance * holding statin * Gastroenterology following * s/p liver biopsy on 12/21 * follow trend (6) Anemia: Code(s): D64.9 - Anemia, unspecified Status: Acute Assessment and Plan: * related to ELEANOR, CKD, and acute illness * follow trend of H/H * Epogen with HD if needed (7) Peripheral vascular disease: Code(s): I73.9 - Peripheral vascular disease, unspecified Status: Acute Assessment and Plan: * known history * on zetia but statin on hold given elevated LFTs * complicated by ongoing smoking * arterial dopplers noted (8) Diabetes mellitus type 2 with complications: Code(s): E11.8 - Type 2 diabetes mellitus with unspecified complications Status: Chronic Assessment and Plan: * follow accu-cheks * glycemic control per hospitalist Will continue to follow. L Subjective Date/time seen: 12/23/24 14:31 Interval history: Follow-up for acute kidney injury/acute renal failure on chronic kidney disease. Tolerated dialysis treatment yesterday and tolerating dialysis at the time of my visit (seen on HD at 2:20PM); mentation seems a bit better but still requiring sedation at time due to fluctuating mentation; s/p renal biopsy earlier today and apparently tolerated this intervention without any issue or problems. Exam 2 Narrative: General: elderly male in NAD Heart: normal S1 and S2; no rub Lungs: coarse breath sounds Abdomen: obese but soft, nontender, nondistended, positive bowel sounds Extremities: no cyanosis or clubbing; 1 - 2+ edema in RLE; s/p left AKA Skin: no nodules Objective Data Vital Signs Vital Signs: Vital Signs Temp Pulse Resp BP Pulse Ox O2 Del Method 12/23/24 14:30 120 H 103/78 12/23/24 14:10 118 H 113/84 12/23/24 14:00 97.4 F L 118 H 16 106/77 94 12/23/24 12:03 120 H 12/23/24 08:32 122 H 12/23/24 08:32 16 92 Room Air 12/23/24 08:01 122 H 12/23/24 06:14 121 H 12/23/24 05:54 98.1 F 121 H 14 114/70 92 12/23/24 04:00 120 H 12/23/24 00:00 119 H 12/22/24 21:39 97.8 F 117 H 14 129/86 96 12/22/24 20:00 118 H 12/22/24 20:00 Room Air 12/22/24 19:10 97.9 F 117 H 16 119/87 97 12/22/24 19:05 117 H 119/86 12/22/24 19:00 115 H 117/85 12/22/24 18:45 118 H 113/85 12/22/24 18:30 118 H 118/87 12/22/24 18:15 117 H 108/78 12/22/24 18:00 118 H 105/78 Intake/Output Intake/Output: Intake & Output 12/20/24 12/21/24 12/22/24 12/23/24 23:59 23:59 23:59 23:59 Intake Total 837 450 220 150 Output Total 0 500 1650 3000 Balance 240 -16 -9373 -9276 Meds/Results Medications: Active Medications Generic Name Dose Route Start Last Admin Trade Name Freq PRN Reason Stop Dose Admin Acetaminophen 650 mg 12/17/24 16:18 12/18/24 20:54 Acetaminophen 325 Mg Tablet PO 650 mg Q4H PRN Administration Mild Pain (1-3) or Fever Hydrocodone Bitart/Acetaminophen 1 tab 12/17/24 19:37 12/19/24 15:50 Hydrocodone/Acetaminophen (*Crx) 5-325 Mg Tablet PO 1 tab Q8H PRN Administration pain 4-6 Aspirin 81 mg 12/20/24 08:00 12/23/24 07:46 Aspirin 81 Mg Chewable Tablet PO Not Given DAILY@0800 [facility] Calcium Carbonate 200 mg 12/18/24 22:39 Calcium Carbonate (Tums) 500 Mg (200 Mg Elemental) PO Q6H PRN Indigestion Dextrose 12.5 gm 12/17/24 22:39 Dextrose 50% 25 Gm/50 Ml Syringe IV PUSH PRN PRN Hypoglycemia Protocol Diphenhydramine HCl 12.5 mg 12/18/24 14:23 12/23/24 03:07 Diphenhydramine Hcl Elixir 12.5 Mg/5 Ml Udc PO 12.5 mg Q6H PRN Administration Itching Docusate Sodium 100 mg 12/23/24 21:00 Docusate Sodium 100 Mg Capsule PO Q12HR RE[facility] Doxycycline Hyclate 100 mg 12/17/24 22:45 12/23/24 08:32 Doxycycline Hyclate 100 Mg Tablet PO 12/24/24 09:01 100 mg Q12HR REGINA Administration Ezetimibe 10 mg 12/18/24 09:00 12/23/24 08:32 Ezetimibe 10 Mg Tablet PO 10 mg DAILY RE[facility] Administration Glucagon 1 mg 12/17/24 22:39 Glucagon For Inj 1 Mg Vial IM PRN PRN Hypoglycemia Protocol Glucose 15 gm 12/17/24 22:39 Glucose Oral Gel 15 Gm Of Glucse In 37.5 Gm Tube PO PRN PRN Hypoglycemia Protocol Heparin Sodium (Porcine) 5,000 units 12/18/24 09:00 12/23/24 08:33 Heparin Sodium 5,000 Units/Ml Vial SUB-Q Not Given Q12HR [facility] Dextrose 1,000 mls @ 100 mls/hr 12/17/24 22:39 Dextrose 5% 1,000 Ml IVPB PRN PRN Hypoglycemia Protocol Ceftriaxone Sodium 1 gm in 50 mls @ 100 mls/hr 12/17/24 23:00 12/22/24 23:22 Rocephin 1 Gm/Ns 50 Ml IVPB 12/23/24 23:29 Infused Q24H [facility] Infusion Albumin Human 50 mls @ 999 mls/hr 12/22/24 05:43 Albutein IVPB 01/21/25 05:42 Q10M PRN HYPOTENSION Insulin Aspart 2 - 5 units 12/18/24 11:30 12/23/24 17:46 Insulin Aspart (*Bkc) 100 Units/Ml SUB-Q Not Given ACHS [facility] Protocol Levothyroxine Sodium 250 mcg 12/21/24 06:30 12/23/24 04:58 Levothyroxine Sodium 125 Mcg Tablet PO 250 mcg [id number] [facility] Administration Levothyroxine Sodium 125 mcg 12/26/24 06:30 Levothyroxine Sodium 125 Mcg Tablet PO Mitchell@0630 [facility] Lorazepam 0.5 mg 12/22/24 09:11 12/23/24 17:49 Lorazepam Inj (*Crx) 2 Mg/Ml Vial IV PUSH 0.5 mg Q6H PRN Administration Anxiety/agitation/procedures Metoprolol Succinate 50 mg 12/18/24 09:00 12/19/24 09:01 Metoprolol Succinate Ext Rel 50 Mg Tabcr PO 50 mg DAILY [facility] Administration Metoprolol Tartrate 25 mg 12/23/24 14:00 12/23/24 13:03 Metoprolol Tartrate 25 Mg Tablet PO Not Given Q8HR [facility] Nicotine 1 patch 12/17/24 22:45 12/23/24 08:34 Nicotine (*Pbkc) 21 Mg Patch TRANSDERM Not Given DAILY [facility] Ondansetron HCl 4 mg 12/17/24 16:18 12/19/24 21:24 Ondansetron Inj 4 Mg/2 Ml Vial IV PUSH 4 mg Q4H PRN Administration Nausea Oxycodone HCl 5 mg 12/22/24 09:12 12/23/24 14:22 Oxycodone Hcl (*Crx) 5 Mg Tab Ir PO 5 mg Q4H PRN Administration Pain Rated 7-10 Sacubitril/Valsartan 1 tab 12/17/24 21:00 12/18/24 08:25 Sacubitril/Valsartan 24-26 Mg Tablet PO 1 tab Q12HR [facility] Administration Sertraline HCl 100 mg 12/18/24 09:00 12/23/24 08:32 Sertraline Hcl 50 Mg Tablet PO 100 mg DAILY REGINA Administration Radiology Results: ITS Impressions Lumbar Spine X-Ray 12/17/24 15:44 IMPRESSION: Anterior loss of volume of L1 which is most likely chronic. MRI evaluation advised. Otherwise, No acute osseous abnormality lumbar spine. Degenerative disc disease at the level of L4-L5. Venous Doppler Study 12/18/24 13:13 IMPRESSION: 1. No deep venous thrombosis. Abdomen Ultrasound 12/18/24 13:18 IMPRESSION: 1. Cholelithiasis. No evidence of acute cholecystitis. 2. Mildly dilated common duct. Renal Ultrasound 12/18/24 13:21 IMPRESSION: 1. Normal kidney sizes. No hydronephrosis. Lumbar Spine MRI 12/18/24 15:23 IMPRESSION: Limited examination secondary to motion artifact. No abnormal signal intensity or contrast enhancement is identified within the vertebral body of L1 to suggest acute traumatic injury. Within the visualized intervertebral disc spaces, moderate degenerative disease is noted, as detailed above. Duplex Scan Lower Extremity Artery 12/18/24 21:35 IMPRESSION: Abnormal peak systolic velocity and waveform morphology suggesting a popliteal or tibioperoneal trunk stenosis. Three-vessel blood flow into the right calf with single vessel blood flow into the right foot (on the submitted images) MRCP 12/21/24 08:48 IMPRESSION: 1. Study terminated at patient request prior to obtaining the normal complement of sequences including the MRCP images and which along with some motion artifact on the obtained sequences moderately limits evaluation. 2. Anasarca with small left and moderate-sized right pleural effusions, small amount of ascites and extensive body wall, as enteric and retroperitoneal edema. 3. Normal-appearing gallbladder with no evident cholelithiasis and with no intra or extrahepatic biliary ductal dilation. Sensitivity for tiny gallstones which were suggested on prior ultrasound is limited by motion artifact. 4. Cardiomegaly. Liver Biopsy Ultrasound 12/22/24 10:51 IMPRESSION: 1. Successful Ultrasound-guided random liver biopsy. Chest X-Ray 12/22/24 15:50 IMPRESSION: Interval placement of a nontunneled right internal jugular hemodialysis catheter, in good position and ready for immediate use. Mild pulmonary vascular congestion with small bilateral pleural effusions Renal Biopsy Ultrasound 12/23/24 10:32 IMPRESSION: 1. Ultrasound-guided random left kidney core needle biopsy. Labs Labs: Laboratory Tests 12/23/24 05:30 12/23/24 05:30 PT 17.9 H INR 1.4 Calcium 7.7 L Phosphorus 6.7 H Magnesium 1.9 Total Bilirubin 1.0 AST 330 H ALT 618 H Alkaline Phosphatase 303 H Total Protein 5.0 L Albumin 2.5 L
--- NOTE | 2024-12-23 16:51 | P.PNGI_ITS ---
Progress Note: A&P Assessment and Plan (1) Abnormal transaminases: Code(s): R74.8 - Abnormal levels of other serum enzymes Status: Acute Assessment and Plan: The patient presents with multiple comorbidities, including advanced chronic kidney disease and new-onset atrial fibrillation complicating heart failure. Our consultation was requested due to severely elevated transaminases, which are likely secondary to hemodynamic compromise resulting from impaired cardiac function. No specific treatment is indicated for the elevated transaminases, and the trend suggests a decrease, likely reflecting optimization of cardiovascular and hemodynamic management. Given the patient's chronic conditions, it is possible that transaminase levels may not return to normal. will defer further evaluation for now, feel free to contact us for any other issues pertaining to our specialty. Subjective Date/time seen: 12/23/24 16:51 Interval history: The patient started dialysis yesterday. Tolerated it well. Liver biopsy was consistent with congestive hepatopathy. Exam Narrative: Alert oriented x3. Abdomen distended, bowel sounds present. R Objective Data Vital Signs Vital Signs: Vital Signs - 24 hr 12/22/24 17:00 12/22/24 17:15 12/22/24 17:30 Temperature Pulse Rate 117 H 117 H 119 H Respiratory Rate Blood Pressure 113/77 107/79 108/46 L Pulse Oximetry Oxygen Delivery 12/22/24 17:45 12/22/24 18:00 12/22/24 18:15 Temperature Pulse Rate 116 H 118 H 117 H Respiratory Rate Blood Pressure 119/78 105/78 108/78 Pulse Oximetry Oxygen Delivery 12/22/24 18:30 12/22/24 18:45 12/22/24 19:00 Temperature Pulse Rate 118 H 118 H 115 H Respiratory Rate Blood Pressure 118/87 113/85 117/85 Pulse Oximetry Oxygen Delivery 12/22/24 19:05 12/22/24 19:10 12/22/24 20:00 Temperature 97.9 F Pulse Rate 117 H 117 H Respiratory Rate 16 Blood Pressure 119/86 119/87 Pulse Oximetry 97 Oxygen Delivery Room Air 12/22/24 20:00 12/22/24 21:39 12/23/24 00:00 Temperature 97.8 F Pulse Rate 118 H 117 H 119 H Respiratory Rate 14 Blood Pressure 129/86 Pulse Oximetry 96 Oxygen Delivery 12/23/24 04:00 12/23/24 05:54 12/23/24 06:14 Temperature 98.1 F Pulse Rate 120 H 121 H 121 H Respiratory Rate 14 Blood Pressure 114/70 Pulse Oximetry 92 Oxygen Delivery 12/23/24 08:01 12/23/24 08:32 12/23/24 08:32 Temperature Pulse Rate 122 H 122 H Respiratory Rate 16 Blood Pressure Pulse Oximetry 92 Oxygen Delivery Room Air 12/23/24 12:03 12/23/24 14:00 12/23/24 14:10 Temperature 97.4 F L Pulse Rate 120 H 118 H 118 H Respiratory Rate 16 Blood Pressure 106/77 113/84 Pulse Oximetry 94 Oxygen Delivery 12/23/24 14:30 12/23/24 14:45 12/23/24 15:00 Temperature Pulse Rate 120 H 113 H 119 H Respiratory Rate Blood Pressure 103/78 108/77 100/74 Pulse Oximetry Oxygen Delivery 12/23/24 15:15 12/23/24 15:30 12/23/24 15:45 Temperature Pulse Rate 108 H 122 H 112 H Respiratory Rate Blood Pressure 113/75 110/80 114/81 Pulse Oximetry Oxygen Delivery 12/23/24 16:00 12/23/24 16:15 12/23/24 16:30 Temperature Pulse Rate 124 H 108 H 104 H Respiratory Rate Blood Pressure 115/83 101/75 115/81 Pulse Oximetry Oxygen Delivery Intake/Output Intake/Output: Intake & Output 12/20/24 12/21/24 12/22/24 12/23/24 23:59 23:59 23:59 23:59 Intake Total 837 450 220 150 Output Total 0 500 1650 1999 Balance 267 -90 -5156 -9659 Meds/Results Medications: Active Medications Generic Name Dose Route Start Last Admin Trade Name Freq PRN Reason Stop Dose Admin Acetaminophen 650 mg 12/17/24 16:18 12/18/24 20:54 Acetaminophen 325 Mg Tablet PO 650 mg Q4H PRN Administration Mild Pain (1-3) or Fever Hydrocodone Bitart/Acetaminophen 1 tab 12/17/24 19:37 12/19/24 15:50 Hydrocodone/Acetaminophen (*Crx) 5-325 Mg Tablet PO 1 tab Q8H PRN Administration pain 4-6 Aspirin 81 mg 12/20/24 08:00 12/23/24 07:46 Aspirin 81 Mg Chewable Tablet PO Not Given DAILY@0800 [facility] Calcium Carbonate 200 mg 12/18/24 22:39 Calcium Carbonate (Tums) 500 Mg (200 Mg Elemental) PO Q6H PRN Indigestion Dextrose 12.5 gm 12/17/24 22:39 Dextrose 50% 25 Gm/50 Ml Syringe IV PUSH PRN PRN Hypoglycemia Protocol Diphenhydramine HCl 12.5 mg 12/18/24 14:23 12/23/24 03:07 Diphenhydramine Hcl Elixir 12.5 Mg/5 Ml Udc PO 12.5 mg Q6H PRN Administration Itching Docusate Sodium 100 mg 12/23/24 21:00 Docusate Sodium 100 Mg Capsule PO Q12HR RE[facility] Doxycycline Hyclate 100 mg 12/17/24 22:45 12/23/24 08:32 Doxycycline Hyclate 100 Mg Tablet PO 12/24/24 09:01 100 mg Q12HR REGINA Administration Ezetimibe 10 mg 12/18/24 09:00 12/23/24 08:32 Ezetimibe 10 Mg Tablet PO 10 mg DAILY RE[facility] Administration Glucagon 1 mg 12/17/24 22:39 Glucagon For Inj 1 Mg Vial IM PRN PRN Hypoglycemia Protocol Glucose 15 gm 12/17/24 22:39 Glucose Oral Gel 15 Gm Of Glucse In 37.5 Gm Tube PO PRN PRN Hypoglycemia Protocol Heparin Sodium (Porcine) 5,000 units 12/18/24 09:00 12/23/24 08:33 Heparin Sodium 5,000 Units/Ml Vial SUB-Q Not Given Q12HR [facility] Dextrose 1,000 mls @ 100 mls/hr 12/17/24 22:39 Dextrose 5% 1,000 Ml IVPB PRN PRN Hypoglycemia Protocol Ceftriaxone Sodium 1 gm in 50 mls @ 100 mls/hr 12/17/24 23:00 12/22/24 23:22 Rocephin 1 Gm/Ns 50 Ml IVPB 12/23/24 23:29 Infused Q24H [facility] Infusion Albumin Human 50 mls @ 999 mls/hr 12/22/24 05:43 Albutein IVPB 01/21/25 05:42 Q10M PRN HYPOTENSION Insulin Aspart 2 - 5 units 12/18/24 11:30 12/23/24 12:05 Insulin Aspart (*Bkc) 100 Units/Ml SUB-Q Not Given ACHS [facility] Protocol Levothyroxine Sodium 250 mcg 12/21/24 06:30 12/23/24 04:58 Levothyroxine Sodium 125 Mcg Tablet PO 250 mcg [id number]@0630 [facility] Administration Levothyroxine Sodium 125 mcg 12/26/24 06:30 Levothyroxine Sodium 125 Mcg Tablet PO Mitchell@0630 [facility] Lorazepam 0.5 mg 12/22/24 09:11 12/23/24 09:23 Lorazepam Inj (*Crx) 2 Mg/Ml Vial IV PUSH 0.5 mg Q6H PRN Administration Anxiety/agitation/procedures Metoprolol Succinate 50 mg 12/18/24 09:00 12/19/24 09:01 Metoprolol Succinate Ext Rel 50 Mg Tabcr PO 50 mg DAILY REGINA Administration Metoprolol Tartrate 25 mg 12/23/24 14:00 12/23/24 13:03 Metoprolol Tartrate 25 Mg Tablet PO Not Given Q8HR [facility] Nicotine 1 patch 12/17/24 22:45 12/23/24 08:34 Nicotine (*Pbkc) 21 Mg Patch TRANSDERM Not Given DAILY [facility] Ondansetron HCl 4 mg 12/17/24 16:18 12/19/24 21:24 Ondansetron Inj 4 Mg/2 Ml Vial IV PUSH 4 mg Q4H PRN Administration Nausea Oxycodone HCl 5 mg 12/22/24 09:12 12/23/24 14:22 Oxycodone Hcl (*Crx) 5 Mg Tab Ir PO 5 mg Q4H PRN Administration Pain Rated 7-10 Sacubitril/Valsartan 1 tab 12/17/24 21:00 12/18/24 08:25 Sacubitril/Valsartan 24-26 Mg Tablet PO 1 tab Q12HR [facility] Administration Sertraline HCl 100 mg 12/18/24 09:00 12/23/24 08:32 Sertraline Hcl 50 Mg Tablet PO 100 mg DAILY REGINA Administration Radiology Results: ITS Impressions Lumbar Spine X-Ray 12/17/24 15:44 IMPRESSION: Anterior loss of volume of L1 which is most likely chronic. MRI evaluation advised. Otherwise, No acute osseous abnormality lumbar spine. Degenerative disc disease at the level of L4-L5. Venous Doppler Study 12/18/24 13:13 IMPRESSION: 1. No deep venous thrombosis. Abdomen Ultrasound 12/18/24 13:18 IMPRESSION: 1. Cholelithiasis. No evidence of acute cholecystitis. 2. Mildly dilated common duct. Renal Ultrasound 12/18/24 13:21 IMPRESSION: 1. Normal kidney sizes. No hydronephrosis. Lumbar Spine MRI 12/18/24 15:23 IMPRESSION: Limited examination secondary to motion artifact. No abnormal signal intensity or contrast enhancement is identified within the vertebral body of L1 to suggest acute traumatic injury. Within the visualized intervertebral disc spaces, moderate degenerative disease is noted, as detailed above. Duplex Scan Lower Extremity Artery 12/18/24 21:35 IMPRESSION: Abnormal peak systolic velocity and waveform morphology suggesting a popliteal or tibioperoneal trunk stenosis. Three-vessel blood flow into the right calf with single vessel blood flow into the right foot (on the submitted images) MRCP 12/21/24 08:48 IMPRESSION: 1. Study terminated at patient request prior to obtaining the normal complement of sequences including the MRCP images and which along with some motion artifact on the obtained sequences moderately limits evaluation. 2. Anasarca with small left and moderate-sized right pleural effusions, small amount of ascites and extensive body wall, as enteric and retroperitoneal edema. 3. Normal-appearing gallbladder with no evident cholelithiasis and with no intra or extrahepatic biliary ductal dilation. Sensitivity for tiny gallstones which were suggested on prior ultrasound is limited by motion artifact. 4. Cardiomegaly. Liver Biopsy Ultrasound 12/22/24 10:51 IMPRESSION: 1. Successful Ultrasound-guided random liver biopsy. Chest X-Ray 12/22/24 15:50 IMPRESSION: Interval placement of a nontunneled right internal jugular hemodialysis catheter, in good position and ready for immediate use. Mild pulmonary vascular congestion with small bilateral pleural effusions Renal Biopsy Ultrasound 12/23/24 10:32 IMPRESSION: 1. Ultrasound-guided random left kidney core needle biopsy. Labs Labs: Laboratory Results - last 24 hr 12/17/24 12/18/24 12/19/24 23:07 03:16 04:53 WBC RBC Hgb Hct MCV MCH MCHC RDW Plt Count MPV Immature Gran % (Auto) Neut % (Auto) Lymph % (Auto) [place] % (Auto) Eos % (Auto) Baso % (Auto) Lymph # (Auto) [place] # (Auto) Eos # (Auto) Baso # (Auto) Abs Immat Gran (auto) Absolute Neuts (auto) Absolute Nucleated RBC Nucleated RBC % PT INR Sodium Potassium Chloride Carbon Dioxide Anion Gap BUN Creatinine Estim Creat Clear Calc Estimated GFR Glucose POC Capillary Glucose Calcium Phosphorus Magnesium Total Bilirubin AST ALT Alkaline Phosphatase Total Protein Albumin ANCA Screen Negative Hep B Core Total Ab Mycoplasma pneumon IgM 272 Urine Pneumococcal Ag Not detected 12/22/24 12/22/24 12/23/24 05:37 20:06 05:30 WBC 8.1 RBC 4.42 L Hgb 11.1 L Hct 36.4 L MCV 82.4 MCH 25.1 L MCHC 30.5 L RDW 19.1 H Plt Count 226 MPV 9.2 Immature Gran % (Auto) 0.5 Neut % (Auto) 72.4 Lymph % (Auto) 11.7 L [place] % (Auto) 6.8 Eos % (Auto) 7.7 H Baso % (Auto) 0.9 Lymph # (Auto) 0.95 [place] # (Auto) 0.6 Eos # (Auto) 0.6 H Baso # (Auto) 0.1 Abs Immat Gran (auto) 0.04 H Absolute Neuts (auto) 5.9 Absolute Nucleated RBC 0.060 H Nucleated RBC % 0.7 H PT 17.9 H INR 1.4 Sodium 134 L Potassium 3.8 Chloride 99 Carbon Dioxide 25 Anion Gap 10 BUN 76 H D Creatinine 4.36 H Estim Creat Clear Calc 22 Estimated GFR 14 L Glucose 90 POC Capillary Glucose 92 Calcium 7.7 L Phosphorus 6.7 H Magnesium 1.9 Total Bilirubin 1.0 AST 330 H ALT 618 H Alkaline Phosphatase 303 H Total Protein 5.0 L Albumin 2.5 L ANCA Screen Hep B Core Total Ab Non-reactive Mycoplasma pneumon IgM Urine Pneumococcal Ag 12/23/24 12/23/24 07:31 12:03 WBC RBC Hgb Hct MCV MCH MCHC RDW Plt Count MPV Immature Gran % (Auto) Neut % (Auto) Lymph % (Auto) [place] % (Auto) Eos % (Auto) Baso % (Auto) Lymph # (Auto) [place] # (Auto) Eos # (Auto) Baso # (Auto) Abs Immat Gran (auto) Absolute Neuts (auto) Absolute Nucleated RBC Nucleated RBC % PT INR Sodium Potassium Chloride Carbon Dioxide Anion Gap BUN Creatinine Estim Creat Clear Calc Estimated GFR Glucose POC Capillary Glucose 114 H 133 H Calcium Phosphorus Magnesium Total Bilirubin AST ALT Alkaline Phosphatase Total Protein Albumin ANCA Screen Hep B Core Total Ab Mycoplasma pneumon IgM Urine Pneumococcal Ag
--- NOTE | 2024-12-23 17:30 | PC.NURSE ---
Returned from dialysis via bed.
[2024-12-23 17:40] LABS: Glucose Point of Care 98 mg/dl (65-105)
--- NOTE | 2024-12-23 19:03 | PC.NURSE ---
Returned from dialysis via bed.
[2024-12-23 20:54] LABS: Glucose Point of Care 112 mg/dl (65-105)
[2024-12-23] MEDS: HEPARIN SODIUM 5,000 UNITS/ML VIAL 5000 UNITS SUB-Q (21:12)
[2024-12-23] MEDS: METOPROLOL TARTRATE 25 MG TABLET PO (21:14)
[2024-12-23] MEDS: DOCUSATE SODIUM 100 MG CAPSULE PO (21:15)
[2024-12-24] VITALS (31 sets, daily range): BP systolic 92–123; BP diastolic 65–83; PULSE 85–113; RESP 14–20; TEMP 35.6–37.1; O2SAT 92–100
[2024-12-24] MEDS: LORazepam INJ (*CRX) 2 MG/ML VIAL 0.5 MG IV PUSH ×2 (00:25→22:18)
[2024-12-24] MEDS: oxyCODONE HCL (*CRX) 5 MG TAB IR PO ×3 (05:08→15:57)
[2024-12-24] MEDS: METOPROLOL TARTRATE 25 MG TABLET PO ×3 (05:09→19:41)
[2024-12-24] MEDS: LEVOTHYROXINE SODIUM 125 MCG TABLET 250 MCG PO (05:09)
[2024-12-24 05:46] LABS: Basophils Absolute Auto 0.1 K/mm3 (0.0-0.1); Basophils Percent Auto 0.8 % (0.2-1.2); Eosinophils Absolute Auto 0.5 K/mm3 (0-0.3); Eosinophils Percent Auto 6.2 % (0-4.4); Hematocrit 37.5 % (42.0-52.0); Immature Granulocyte Absolute 0.04 K/mm3 (0.00-0.031); Immature Granulocyte Percent A 0.5 % (0-0.5); Lymphocytes Absolute Auto 1.55 K/mm3 (0.9-3.2); Lymphocytes Percent Auto 18.5 % (18.3-44.2); Mean Corpuscular HGB Conc 29.3 g/dl (32-36); Mean Corpuscular Hemoglobin 24.8 pg (26-34); Mean Corpuscular Volume 84.7 fl (80-100); Mean Platelet Volume 9.1 fl (7.4-10.4); Monocytes Absolute Auto 0.8 K/mm3 (0.1-0.6); Monocytes Percent Auto 9.4 % (2.6-8.5); Neutrophils Absolute Auto 5.4 K/mm3 (1.3-6.7); Neutrophils Percent Auto 64.6 % (45.5-73.1); Nucleated Red Blood Cells Perc 1.2 % (0.0-0.2); Platelet Count Result 201 k/mm3 (150-375); Red Blood Count 4.43 M/mm3 (4.6-6.20); White Blood Count 8.4 K/mm3 (4.5-10.0)
[2024-12-24] MEDS: NICOTINE (*PBKC) 21 MG PATCH 1 PATCH TRANSDERM (06:00)
[2024-12-24 06:18] LABS: INR 1.3; Prothrombin Time 16.1 Seconds (11.1-14.7)
[2024-12-24 06:25] LABS: Alanine Aminotransferase 446 U/L (6-50); Albumin Level 2.5 g/dL (3.5-5.1); Alkaline Phosphatase 274 U/L (38-126); Anion Gap 7 mmol/L (4-12); Aspartate Amino Transferase 208 U/L (17-59); Bilirubin,Total 0.9 mg/dL (0.2-1.3); Blood Urea Nitrogen 50 mg/dL (9-20); Calcium 7.3 mg/dL (8.4-10.2); Carbon Dioxide 29 mmol/L (22-30); Chloride 99 mmol/L (98-107); Estimated CRCL calculation 28 ml/min; Estimated Glomerular Filt Rate 19; Glucose 103 mg/dL (65-110); Magnesium 1.8 mg/dL (1.6-2.3); Phosphorus 4.9 mg/dL (2.5-4.5); Potassium 3.7 mmol/L (3.4-5.0); Sodium 135 mmol/L (137-145)
[2024-12-24 06:34] LABS: Anisocytosis 1+; Burr Cells 1+; Platelet Estimate Adequate (Adequate); Schistocytes None Seen
[2024-12-24 07:44] LABS: Glucose Point of Care 121 mg/dl (65-105)
--- NOTE | 2024-12-24 08:59 | PM.IMPN ---
Progress Note: A&P Assessment and Plan (1) Cardiomyopathy: Code(s): I42.9 - Cardiomyopathy, unspecified Status: Acute (2) Heart failure with mildly reduced ejection fraction: Code(s): I50.22 - Chronic systolic (congestive) heart failure Status: Acute Assessment and Plan: Echo showing severely reduced systolic fxn with EF 25-30% with diastolic dysfunction, mild valve disease and moderate pulmonary HTN. BNP >30K. CXR showing CMG, bibasilar infiltrates and small pleural effusions. Entresto and finerenone on hold. Diuretics not listed on home med list. Eve 42 so suspect good renal perfusion. Was on IV fluids but now stopped . Fluid balance +4L. Hold Toprol XL. 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 AP 340 with normal bili. Levels normal earlier this month. Hepatitis panel negative. Abd US showing cholelithiasis and mildly dilated CBD. Liver is normal in appearance. lipitor held. Repeat levels on 12/20 much worse with AST 1539, ALT 1066, AP 479, normal bili. Repeated CMP showed liver enzymes are trending down Lactic acid 1.1. Acet level <10 Possible due to congestion due to heart failure Consider autoimmune with + IV fluids stopped. GI consulted and appreciate their input. AST better. Unable to get MRCP Status post liver biopsy 12/22/2024 colon pathology with congestive hepatopathy hepatic fibrosis score 1. # Acute on chronic kidney failure: Patient presents with weakness and may have underlying PNA. Cr on admission 4.3. Baseline Cr 2.1-2.9 range. He was started on IV fluids. Urine eos negative. Eve 42. Total CK 371. Urine prot/Cr 4.7gm consistent with nephrotic syndrome. Complement normal. Hx of + 1:640. Renal US normal. Nephrology consulted and appreciate their input. Cryoglobulin pending. Phos 6.5. Creatinine is trending up, Phos remains elevated. HD catheter placement 12/22/2024 He has been started on hemodialysis. Status post renal biopsy 12/23/2024: Renal biopsy pending # Pneumonia: Patient presents with weakness after having cold and cough symptoms for 3 weeks. No benefit after 2 Z-packs. CXR showing bibasilar infiltrates. No fevers or hypoxia. WBC 12K. He was started on Rocephin and Doxycycline. WBC normal now. BCx NGTD. MRSA screen negative. Urine Ag pending. Sputum Cx growing MSSA and yeast. Abx to complete a 7 day course. #Heart failure with reduced ejection fraction: Echo showing severely reduced systolic fxn with EF 25-30% with diastolic dysfunction, mild valve disease and moderate pulmonary HTN. BNP >30K. CXR showing CMG, bibasilar infiltrates and small pleural effusions. Entresto and finerenone on hold. Diuretics not listed on home med list. Eve 42 so suspect good renal perfusion. Hold Toprol XL. Monitor UOP, renal fxn, daily weights and fluid balance Hold Entresto because of worsening kidney function # Diabetes mellitus type 2 with complications: A1c 7%. The patient's blood glucose was reviewed Patient was on an insulin pump at home. Concern patient was unable to handle his pump here so this was held. Glucose remains well controlled off the insulin pump. He is eating some Continue AccuCheks covering with sliding scale. Hypoglycemia protocol available as needed. Continue to monitor # new onset atrial fibrillation. On metoprolol. Eliquis when able # nonobstructive coronary artery disease per L at C 02/2024. On aspirin. Statin on hold due to elevated liver enzymes. # Peripheral vascular disease: Patient with known PAD. Venous doppler RLE negative for DVT. Arterial doppler RLE suggestive of a popliteal or tibioperoneal trunk stenosis. There is three-vessel blood flow into the right calf with single vessel blood flow into the right foot. Continue Zetia and ASA. Resume Lipitor when able. # Hypothyroidism: Review of Endocrine note from 11/12 showing he was to skip the Friday Synthroid dose. TSH is 46.4. Free T4 is low-normal at 0.96. Total T3 is 0.5. Patient is on 250 mcg daily of Synthroid. Suspect the skipped dose has resulted in the change in his thyroid panel. Will adjust to 250mcg daily except 125mcg on Sundays. # Tobacco dependence: Patient was educated about the benefits of smoking cessation # urinary retention status post cystoscopy with passive dilation of mild bulbar narrowing. Complex Hernandez catheter placement with 16 [place] coude on 12/20/2024. Maintain Hernandez catheter until improvement in volume status and mobility. # Low back pain - Lumbar MRI performed but no acute finding seen on limited imaging due to motion artifact. # DVT prophylaxis - Heparin # Code status - full Subjective Date/time seen: 12/24/24 08:59 Interval history: Chart reviewed. Underwent hemodialysis today. Feeling better. No new complaints. Review of Systems Review of Systems: All systems reviewed & are unremarkable except as noted in HPI and below Exam Narrative: GENERAL: Ill-appearing, in no acute distress. Well-nourished. - EYES: EOMI. Anicteric. - HENT: Moist mucous membranes. - LUNGS: Coarse breath sound bilaterally - CARDIOVASCULAR: Regular rate and rhythm. No murmur. No JVD. - ABDOMEN: Soft, non-tender and non-distended. No palpable masses. ; folic catheter in-situ, scrotum is enlarged - EXTREMITIES: No edema. Left above knee amputation - NEUROLOGIC: No focal neurological deficits. CN II-XII grossly intact. - PSYCHIATRIC: Awake, Alert and oriented x 3. Appropriate mood and affect. - SKIN: No rashes or lesions. Warm. - LYMPH: No cervical lymphadenopathy. Objective Data Vital Signs Vital Signs: Vital Signs - 24 hr 12/23/24 12:03 12/23/24 14:00 12/23/24 14:10 Temperature 97.4 F L Pulse Rate 120 H 118 H 118 H Respiratory Rate 16 Blood Pressure 106/77 113/84 Pulse Oximetry 94 Oxygen Delivery 12/23/24 14:30 12/23/24 14:45 12/23/24 15:00 Temperature Pulse Rate 120 H 113 H 119 H Respiratory Rate Blood Pressure 103/78 108/77 100/74 Pulse Oximetry Oxygen Delivery 12/23/24 15:15 12/23/24 15:30 12/23/24 15:45 Temperature Pulse Rate 108 H 122 H 112 H Respiratory Rate Blood Pressure 113/75 110/80 114/81 Pulse Oximetry Oxygen Delivery 12/23/24 16:00 12/23/24 16:00 12/23/24 16:00 Temperature 96.9 F L Pulse Rate 124 H 103 H 91 Respiratory Rate 16 Blood Pressure 115/83 111/75 Pulse Oximetry 94 Oxygen Delivery 12/23/24 16:15 12/23/24 16:30 12/23/24 16:45 Temperature Pulse Rate 108 H 104 H 109 H Respiratory Rate Blood Pressure 101/75 115/81 109/80 Pulse Oximetry Oxygen Delivery 12/23/24 17:00 12/23/24 17:11 12/23/24 17:18 Temperature 97.2 F L Pulse Rate 120 H 123 H 125 H Respiratory Rate 18 Blood Pressure 117/87 119/83 118/84 Pulse Oximetry 97 Oxygen Delivery 12/23/24 20:00 12/23/24 20:00 12/23/24 20:55 Temperature 96.3 F L Pulse Rate 103 H 107 H Respiratory Rate 20 Blood Pressure 106/70 Pulse Oximetry 98 Oxygen Delivery Room Air 12/23/24 21:14 12/24/24 00:00 12/24/24 04:00 Temperature Pulse Rate 110 H 107 H 102 H Respiratory Rate Blood Pressure Pulse Oximetry Oxygen Delivery 12/24/24 04:20 12/24/24 05:09 12/24/24 08:02 Temperature 96.1 F L 98.2 F Pulse Rate 105 H 111 H 113 H Respiratory Rate 20 14 Blood Pressure 109/65 99/76 L Pulse Oximetry 92 100 Oxygen Delivery 12/24/24 08:12 12/24/24 08:30 12/24/24 08:45 Temperature Pulse Rate 106 H 111 H 93 Respiratory Rate Blood Pressure 93/76 L 98/71 L 92/70 L Pulse Oximetry Oxygen Delivery Intake/Output Intake/Output: Intake & Output 04/01/25 12/22/24 12/23/24 12/24/24 23:59 23:59 23:59 23:59 Intake Total 450 220 540 400 Output Total 500 1650 3750 400 Balance -50 -1430 -3210 0 Meds/Results Medications: Active Medications Generic Name Dose Route Start Last Admin Trade Name Freq PRN Reason Stop Dose Admin Acetaminophen 650 mg 12/17/24 16:18 12/18/24 20:54 Acetaminophen 325 Mg Tablet PO 650 mg Q4H PRN Administration Mild Pain (1-3) or Fever Hydrocodone Bitart/Acetaminophen 1 tab 12/17/24 19:37 12/19/24 15:50 Hydrocodone/Acetaminophen (*Crx) 5-325 Mg Tablet PO 1 tab Q8H PRN Administration pain 4-6 Aspirin 81 mg 12/20/24 08:00 12/23/24 07:46 Aspirin 81 Mg Chewable Tablet PO Not Given DAILY@0800 REGINA Calcium Carbonate 200 mg 12/18/24 22:39 Calcium Carbonate (Tums) 500 Mg (200 Mg Elemental) PO Q6H PRN Indigestion Dextrose 12.5 gm 12/17/24 22:39 Dextrose 50% 25 Gm/50 Ml Syringe IV PUSH PRN PRN Hypoglycemia Protocol Diphenhydramine HCl 12.5 mg 12/18/24 14:23 12/23/24 03:07 Diphenhydramine Hcl Elixir 12.5 Mg/5 Ml Udc PO 12.5 mg Q6H PRN Administration Itching Docusate Sodium 100 mg 12/23/24 21:00 12/23/24 21:15 Docusate Sodium 100 Mg Capsule PO 100 mg Q12HR REGINA Administration Doxycycline Hyclate 100 mg 12/17/24 22:45 12/23/24 21:14 Doxycycline Hyclate 100 Mg Tablet PO 12/24/24 09:01 100 mg Q12HR REGINA Administration Ezetimibe 10 mg 12/18/24 09:00 12/23/24 08:32 Ezetimibe 10 Mg Tablet PO 10 mg DAILY REGINA Administration Epoetin Oscar-epbx 4,000 units 12/24/24 18:35 Epoetin Oscar-Epbx 4,000 Units/Ml Vial IV PUSH 12/24/24 18:36 ONCE ONE Glucagon 1 mg 12/17/24 22:39 Glucagon For Inj 1 Mg Vial IM PRN PRN Hypoglycemia Protocol Glucose 15 gm 12/17/24 22:39 Glucose Oral Gel 15 Gm Of Glucse In 37.5 Gm Tube PO PRN PRN Hypoglycemia Protocol Heparin Sodium (Porcine) 5,000 units 12/18/24 09:00 12/23/24 21:12 Heparin Sodium 5,000 Units/Ml Vial SUB-Q 5,000 units Q12HR REGINA Administration Dextrose 1,000 mls @ 100 mls/hr 12/17/24 22:39 Dextrose 5% 1,000 Ml IVPB PRN PRN Hypoglycemia Protocol Albumin Human 50 mls @ 999 mls/hr 12/22/24 05:43 Albutein IVPB 01/21/25 05:42 Q10M PRN HYPOTENSION Insulin Aspart 2 - 5 units 12/18/24 11:30 12/24/24 08:10 Insulin Aspart (*Bkc) 100 Units/Ml SUB-Q Not Given ACHS REGINA Protocol Levothyroxine Sodium 250 mcg 12/21/24 06:30 12/24/24 05:09 Levothyroxine Sodium 125 Mcg Tablet PO 250 mcg [id number]@0630 REGINA Administration Levothyroxine Sodium 125 mcg 12/26/24 06:30 Levothyroxine Sodium 125 Mcg Tablet PO Mitchell@0630 REGINA Lorazepam 0.5 mg 12/22/24 09:11 12/24/24 00:25 Lorazepam Inj (*Crx) 2 Mg/Ml Vial IV PUSH 0.5 mg Q6H PRN Administration Anxiety/agitation/procedures Metoprolol Succinate 50 mg 12/18/24 09:00 12/19/24 09:01 Metoprolol Succinate Ext Rel 50 Mg Tabcr PO 50 mg DAILY REGINA Administration Metoprolol Tartrate 25 mg 12/23/24 14:00 12/24/24 05:09 Metoprolol Tartrate 25 Mg Tablet PO 25 mg Q8HR REGINA Administration Nicotine 1 patch 12/17/24 22:45 12/24/24 06:00 Nicotine (*Pbkc) 21 Mg Patch TRANSDERM 1 patch DAILY REGINA Administration Ondansetron HCl 4 mg 12/17/24 16:18 12/19/24 21:24 Ondansetron Inj 4 Mg/2 Ml Vial IV PUSH 4 mg Q4H PRN Administration Nausea Oxycodone HCl 5 mg 12/22/24 09:12 12/24/24 05:08 Oxycodone Hcl (*Crx) 5 Mg Tab Ir PO 5 mg Q4H PRN Administration Pain Rated 7-10 Sacubitril/Valsartan 1 tab 12/17/24 21:00 12/18/24 08:25 Sacubitril/Valsartan 24-26 Mg Tablet PO 1 tab Q12HR REGINA Administration Sertraline HCl 100 mg 12/18/24 09:00 12/23/24 08:32 Sertraline Hcl 50 Mg Tablet PO 100 mg DAILY REGINA Administration Radiology Results: ITS Impressions Lumbar Spine X-Ray 12/17/24 15:44 IMPRESSION: Anterior loss of volume of L1 which is most likely chronic. MRI evaluation advised. Otherwise, No acute osseous abnormality lumbar spine. Degenerative disc disease at the level of L4-L5. Venous Doppler Study 12/18/24 13:13 IMPRESSION: 1. No deep venous thrombosis. Abdomen Ultrasound 12/18/24 13:18 IMPRESSION: 1. Cholelithiasis. No evidence of acute cholecystitis. 2. Mildly dilated common duct. Renal Ultrasound 12/18/24 13:21 IMPRESSION: 1. Normal kidney sizes. No hydronephrosis. Lumbar Spine MRI 12/18/24 15:23 IMPRESSION: Limited examination secondary to motion artifact. No abnormal signal intensity or contrast enhancement is identified within the vertebral body of L1 to suggest acute traumatic injury. Within the visualized intervertebral disc spaces, moderate degenerative disease is noted, as detailed above. Duplex Scan Lower Extremity Artery 12/18/24 21:35 IMPRESSION: Abnormal peak systolic velocity and waveform morphology suggesting a popliteal or tibioperoneal trunk stenosis. Three-vessel blood flow into the right calf with single vessel blood flow into the right foot (on the submitted images) MRCP 12/21/24 08:48 IMPRESSION: 1. Study terminated at patient request prior to obtaining the normal complement of sequences including the MRCP images and which along with some motion artifact on the obtained sequences moderately limits evaluation. 2. Anasarca with small left and moderate-sized right pleural effusions, small amount of ascites and extensive body wall, as enteric and retroperitoneal edema. 3. Normal-appearing gallbladder with no evident cholelithiasis and with no intra or extrahepatic biliary ductal dilation. Sensitivity for tiny gallstones which were suggested on prior ultrasound is limited by motion artifact. 4. Cardiomegaly. Liver Biopsy Ultrasound 12/22/24 10:51 IMPRESSION: 1. Successful Ultrasound-guided random liver biopsy. Chest X-Ray 12/22/24 15:50 IMPRESSION: Interval placement of a nontunneled right internal jugular hemodialysis catheter, in good position and ready for immediate use. Mild pulmonary vascular congestion with small bilateral pleural effusions Renal Biopsy Ultrasound 12/23/24 10:32 IMPRESSION: 1. Ultrasound-guided random left kidney core needle biopsy. Labs Labs: Laboratory Results - last 24 hr 12/19/24 12/23/24 12/23/24 04:53 12:03 17:37 WBC RBC Hgb Hct MCV MCH MCHC RDW Plt Count MPV Immature Gran % (Auto) Neut % (Auto) Lymph % (Auto) [place] % (Auto) Eos % (Auto) Baso % (Auto) Lymph # (Auto) [place] # (Auto) Eos # (Auto) Baso # (Auto) Abs Immat Gran (auto) Absolute Neuts (auto) Absolute Nucleated RBC Band Neutrophils % Nucleated RBC % Platelet Estimate Anisocytosis [place] Cells Schistocytes PT INR Sodium Potassium Chloride Carbon Dioxide Anion Gap BUN Creatinine Estim Creat Clear Calc Estimated GFR Glucose POC Capillary Glucose 133 H 98 Calcium Phosphorus Magnesium Total Bilirubin AST ALT Alkaline Phosphatase Total Protein Albumin ANCA Screen Negative 12/23/24 12/24/24 12/24/24 20:47 05:25 07:41 WBC 8.4 RBC 4.43 L Hgb 11.0 L Hct 37.5 L MCV 84.7 MCH 24.8 L MCHC 29.3 L RDW 19.0 H Plt Count 201 MPV 9.1 Immature Gran % (Auto) 0.5 Neut % (Auto) 64.6 Lymph % (Auto) 18.5 [place] % (Auto) 9.4 H Eos % (Auto) 6.2 H Baso % (Auto) 0.8 Lymph # (Auto) 1.55 [place] # (Auto) 0.8 H Eos # (Auto) 0.5 H Baso # (Auto) 0.1 Abs Immat Gran (auto) 0.04 H Absolute Neuts (auto) 5.4 Absolute Nucleated RBC 0.100 H Band Neutrophils % Not Reportable Nucleated RBC % 1.2 H Platelet Estimate Adequate Anisocytosis 1+ [place] Cells 1+ Schistocytes None seen PT 16.1 H INR 1.3 Sodium 135 L Potassium 3.7 Chloride 99 Carbon Dioxide 29 Anion Gap 7 BUN 50 H D Creatinine 3.33 H Estim Creat Clear Calc 28 Estimated GFR 19 L Glucose 103 POC Capillary Glucose 112 H 121 H Calcium 7.3 L Phosphorus 4.9 H Magnesium 1.8 Total Bilirubin 0.9 AST 208 H ALT 446 H Alkaline Phosphatase 274 H Total Protein 5.0 L Albumin 2.5 L ANCA Screen
[2024-12-24] MEDS: diphenhydrAMINE HCL ELIXIR 12.5 MG/5 ML UDC PO ×2 (09:03→19:41)
--- NOTE | 2024-12-24 09:25 | P.PNNP_ITS ---
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 * HD day before yesterday (12/21) * HD yesterday (12/22) * HD today (12/23) * s/p renal biopsy on 12/22 - possible preliminary results later today * follow trend of repeat labs and UOP for potential renal recovery (2) Stage 3b chronic kidney disease: Code(s): N18.32 - Chronic kidney disease, stage 3b Status: Chronic Assessment and Plan: * baseline creatinine runs around 1.7 - 2.3mg/dl * suspected to be secondary to diabetes and hypertension * HOWEVER, positive noted in association with hematuria and nephrotic range proteinuria as well as rise in creatinine to 2.76mg/dl noted on outpatient testing in early Oct 2024 * renal biopsy recommended during office visit with Dr. Britt at that time (but apparently was never done) (3) Pneumonia: Code(s): J18.9 - Pneumonia, unspecified organism Status: Acute Assessment and Plan: * admission CXR with bibasilar infiltrates * mildly elevated WBC but no fevers * on empiric antibiotics * follow culture data (4) Heart failure with mildly reduced ejection fraction: Code(s): I50.22 - Chronic systolic (congestive) heart failure Status: Acute Assessment and Plan: * known history * repeat Echo (12/18) noted: * severely reduced systolic function with EF 25-30% * diastolic dysfunction * mild valvular disease * moderate pulmonary hypertension * CXR with cardiomegaly, bibasilar infiltrates and small pleural effusions * Entresto and diuretics on hold given #1 * follow daily weights and volume status closely * Cardiology following (5) Transaminitis: Code(s): R74.01 - Elevation of levels of liver transaminase levels Status: Deleted Assessment and Plan: * normal earlier in November 2024 * also continues to worsen * hepatitis panel negative * abd US showing cholelithiasis and mildly dilated CBD; liver is normal in appearance * holding statin * Gastroenterology following * s/p liver biopsy on 12/21 * follow trend (6) Anemia: Code(s): D64.9 - Anemia, unspecified Status: Acute Assessment and Plan: * related to ELEANOR, CKD, and acute illness * follow trend of H/H * Epogen with HD if needed (7) Peripheral vascular disease: Code(s): I73.9 - Peripheral vascular disease, unspecified Status: Acute Assessment and Plan: * known history * on zetia but statin on hold given elevated LFTs * complicated by ongoing smoking * arterial dopplers noted (8) Diabetes mellitus type 2 with complications: Code(s): E11.8 - Type 2 diabetes mellitus with unspecified complications Status: Chronic Assessment and Plan: * follow accu-cheks * glycemic control per hospitalist Will continue to follow. L Subjective Date/time seen: 12/24/24 09:25 Interval history: Follow-up for acute kidney injury/acute renal failure on chronic kidney disease. Tolerated dialysis treatment at the time of my visit (seen on HD at 9:15AM); tolerated dialysis as well as renal biopsy yesterday without any issues or problems; noted more urine output in the last 24 hours as well; mentation seems to be doing significantly better as well. Exam 2 Narrative: General: elderly male in NAD Heart: normal S1 and S2; no rub Lungs: coarse breath sounds Abdomen: obese but soft, nontender, nondistended, positive bowel sounds Extremities: no cyanosis or clubbing; 1+ edema in RLE; s/p left AKA Skin: warm and dry Objective Data Vital Signs Vital Signs: Vital Signs Temp Pulse Resp BP Pulse Ox O2 Del Method 12/24/24 09:15 96 96/70 L 12/24/24 09:01 92 105/75 12/24/24 08:45 93 92/70 L 12/24/24 08:30 111 H 98/71 L 12/24/24 08:12 106 H 93/76 L 12/24/24 08:02 98.2 F 113 H 14 99/76 L 100 12/24/24 08:00 103 H 12/24/24 05:09 111 H 12/24/24 04:20 96.1 F L 105 H 20 109/65 92 12/24/24 04:00 102 H 12/24/24 00:00 107 H 12/23/24 21:14 110 H 12/23/24 20:55 96.3 F L 107 H 20 106/70 98 12/23/24 20:00 103 H 12/23/24 20:00 Room Air 12/23/24 17:18 97.2 F L 125 H 18 118/84 97 12/23/24 17:11 123 H 119/83 12/23/24 17:00 120 H 117/87 12/23/24 16:45 109 H 109/80 12/23/24 16:30 104 H 115/81 12/23/24 16:15 108 H 101/75 12/23/24 16:00 96.9 F L 91 16 111/75 94 12/23/24 16:00 103 H 12/23/24 16:00 124 H 115/83 12/23/24 15:45 112 H 114/81 12/23/24 15:30 122 H 110/80 12/23/24 15:15 108 H 113/75 12/23/24 15:00 119 H 100/74 12/23/24 14:45 113 H 108/77 12/23/24 14:30 120 H 103/78 12/23/24 14:10 118 H 113/84 12/23/24 14:00 97.4 F L 118 H 16 106/77 94 12/23/24 12:03 120 H Intake/Output Intake/Output: Intake & Output 12/21/24 12/22/24 12/23/24 12/24/24 23:59 23:59 23:59 23:59 Intake Total 450 220 540 400 Output Total 500 1650 3750 400 Balance -50 -1430 -3210 0 Meds/Results Medications: Active Medications Generic Name Dose Route Start Last Admin Trade Name Freq PRN Reason Stop Dose Admin Acetaminophen 650 mg 12/17/24 16:18 12/18/24 20:54 Acetaminophen 325 Mg Tablet PO 650 mg Q4H PRN Administration Mild Pain (1-3) or Fever Hydrocodone Bitart/Acetaminophen 1 tab 12/17/24 19:37 12/19/24 15:50 Hydrocodone/Acetaminophen (*Crx) 5-325 Mg Tablet PO 1 tab Q8H PRN Administration pain 4-6 Aspirin 81 mg 12/20/24 08:00 12/23/24 07:46 Aspirin 81 Mg Chewable Tablet PO Not Given DAILY@0800 REGINA Calcium Carbonate 200 mg 12/18/24 22:39 Calcium Carbonate (Tums) 500 Mg (200 Mg Elemental) PO Q6H PRN Indigestion Dextrose 12.5 gm 12/17/24 22:39 Dextrose 50% 25 Gm/50 Ml Syringe IV PUSH PRN PRN Hypoglycemia Protocol Diphenhydramine HCl 12.5 mg 12/18/24 14:23 12/24/24 09:03 Diphenhydramine Hcl Elixir 12.5 Mg/5 Ml Udc PO 12.5 mg Q6H PRN Administration Itching Docusate Sodium 100 mg 12/23/24 21:00 12/23/24 21:15 Docusate Sodium 100 Mg Capsule PO 100 mg Q12HR REGINA Administration Ezetimibe 10 mg 12/18/24 09:00 12/23/24 08:32 Ezetimibe 10 Mg Tablet PO 10 mg DAILY REGINA Administration Epoetin Oscar-epbx 4,000 units 12/24/24 18:35 12/24/24 10:11 Epoetin Oscar-Epbx 4,000 Units/Ml Vial IV PUSH 12/24/24 18:36 4,000 units ONCE ONE Administration Glucagon 1 mg 12/17/24 22:39 Glucagon For Inj 1 Mg Vial IM PRN PRN Hypoglycemia Protocol Glucose 15 gm 12/17/24 22:39 Glucose Oral Gel 15 Gm Of Glucse In 37.5 Gm Tube PO PRN PRN Hypoglycemia Protocol Heparin Sodium (Porcine) 5,000 units 12/18/24 09:00 12/23/24 21:12 Heparin Sodium 5,000 Units/Ml Vial SUB-Q 5,000 units Q12HR REGINA Administration Dextrose 1,000 mls @ 100 mls/hr 12/17/24 22:39 Dextrose 5% 1,000 Ml IVPB PRN PRN Hypoglycemia Protocol Albumin Human 50 mls @ 999 mls/hr 12/22/24 05:43 Albutein IVPB 01/21/25 05:42 Q10M PRN HYPOTENSION Insulin Aspart 2 - 5 units 12/18/24 11:30 12/24/24 08:10 Insulin Aspart (*Bkc) 100 Units/Ml SUB-Q Not Given ACHS [facility] Protocol Levothyroxine Sodium 250 mcg 12/21/24 06:30 12/24/24 05:09 Levothyroxine Sodium 125 Mcg Tablet PO 250 mcg [id number] REGINA Administration Levothyroxine Sodium 125 mcg 12/26/24 06:30 Levothyroxine Sodium 125 Mcg Tablet PO Mitchell@0630 REGINA Lorazepam 0.5 mg 12/22/24 09:11 12/24/24 00:25 Lorazepam Inj (*Crx) 2 Mg/Ml Vial IV PUSH 0.5 mg Q6H PRN Administration Anxiety/agitation/procedures Metoprolol Succinate 50 mg 12/18/24 09:00 12/19/24 09:01 Metoprolol Succinate Ext Rel 50 Mg Tabcr PO 50 mg DAILY REGINA Administration Metoprolol Tartrate 25 mg 12/23/24 14:00 12/24/24 05:09 Metoprolol Tartrate 25 Mg Tablet PO 25 mg Q8HR REGINA Administration Nicotine 1 patch 12/17/24 22:45 12/24/24 06:00 Nicotine (*Pbkc) 21 Mg Patch TRANSDERM 1 patch DAILY REGINA Administration Ondansetron HCl 4 mg 12/17/24 16:18 12/19/24 21:24 Ondansetron Inj 4 Mg/2 Ml Vial IV PUSH 4 mg Q4H PRN Administration Nausea Oxycodone HCl 5 mg 12/22/24 09:12 12/24/24 08:59 Oxycodone Hcl (*Crx) 5 Mg Tab Ir PO 5 mg Q4H PRN Administration Pain Rated 7-10 Sacubitril/Valsartan 1 tab 12/17/24 21:00 12/18/24 08:25 Sacubitril/Valsartan 24-26 Mg Tablet PO 1 tab Q12HR REGINA Administration Sertraline HCl 100 mg 12/18/24 09:00 12/23/24 08:32 Sertraline Hcl 50 Mg Tablet PO 100 mg DAILY REGINA Administration Radiology Results: ITS Impressions Lumbar Spine X-Ray 12/17/24 15:44 IMPRESSION: Anterior loss of volume of L1 which is most likely chronic. MRI evaluation advised. Otherwise, No acute osseous abnormality lumbar spine. Degenerative disc disease at the level of L4-L5. Venous Doppler Study 12/18/24 13:13 IMPRESSION: 1. No deep venous thrombosis. Abdomen Ultrasound 12/18/24 13:18 IMPRESSION: 1. Cholelithiasis. No evidence of acute cholecystitis. 2. Mildly dilated common duct. Renal Ultrasound 12/18/24 13:21 IMPRESSION: 1. Normal kidney sizes. No hydronephrosis. Lumbar Spine MRI 12/18/24 15:23 IMPRESSION: Limited examination secondary to motion artifact. No abnormal signal intensity or contrast enhancement is identified within the vertebral body of L1 to suggest acute traumatic injury. Within the visualized intervertebral disc spaces, moderate degenerative disease is noted, as detailed above. Duplex Scan Lower Extremity Artery 12/18/24 21:35 IMPRESSION: Abnormal peak systolic velocity and waveform morphology suggesting a popliteal or tibioperoneal trunk stenosis. Three-vessel blood flow into the right calf with single vessel blood flow into the right foot (on the submitted images) MRCP 12/21/24 08:48 IMPRESSION: 1. Study terminated at patient request prior to obtaining the normal complement of sequences including the MRCP images and which along with some motion artifact on the obtained sequences moderately limits evaluation. 2. Anasarca with small left and moderate-sized right pleural effusions, small amount of ascites and extensive body wall, as enteric and retroperitoneal edema. 3. Normal-appearing gallbladder with no evident cholelithiasis and with no intra or extrahepatic biliary ductal dilation. Sensitivity for tiny gallstones which were suggested on prior ultrasound is limited by motion artifact. 4. Cardiomegaly. Liver Biopsy Ultrasound 12/22/24 10:51 IMPRESSION: 1. Successful Ultrasound-guided random liver biopsy. Chest X-Ray 12/22/24 15:50 IMPRESSION: Interval placement of a nontunneled right internal jugular hemodialysis catheter, in good position and ready for immediate use. Mild pulmonary vascular congestion with small bilateral pleural effusions Renal Biopsy Ultrasound 12/23/24 10:32 IMPRESSION: 1. Ultrasound-guided random left kidney core needle biopsy. Labs Labs: Laboratory Tests 12/24/24 05:25 12/24/24 05:25 Calcium 7.3 L Phosphorus 4.9 H Magnesium 1.8 Total Bilirubin 0.9 AST 208 H ALT 446 H Alkaline Phosphatase 274 H Total Protein 5.0 L Albumin 2.5 L
[2024-12-24] MEDS: EPOETIN ALFA-EPBX 4,000 UNITS/ML VIAL 4000 UNITS IV PUSH (10:11)
[2024-12-24 11:48] LABS: Glucose Point of Care 101 mg/dl (65-105)
[2024-12-24] MEDS: HEPARIN SODIUM 1,000 UNITS/ML VIAL 4000 UNITS IV PUSH (12:05)
[2024-12-24] MEDS: SERTRALINE HCL 50 MG TABLET 100 MG PO (12:33)
[2024-12-24] MEDS: EZETIMIBE 10 MG TABLET PO (12:33)
[2024-12-24] MEDS: DOXYCYCLINE HYCLATE 100 MG TABLET PO (12:33)
[2024-12-24] MEDS: ASPIRIN 81 MG CHEWABLE TABLET PO (12:33)
[2024-12-24] MEDS: DOCUSATE SODIUM 100 MG CAPSULE PO (12:33)
--- NOTE | 2024-12-24 15:10 | P.PNCROSS_ITS ---
Event Note Event Note Event Note: Preliminary RENAL BIOPSY reviewed: * advanced diabetic glomerulosclerosis (class IV) * 50 - 60% tubular atrophy and interstitial fibrosis * no evidence of inflammation, vasculitis, or GN
--- NOTE | 2024-12-24 15:10 | PM.EVENT ---
Event Note Event Note Event Note: Preliminary RENAL BIOPSY reviewed: advanced diabetic glomerulosclerosis (class IV) 50 - 60% tubular atrophy and interstitial fibrosis no evidence of inflammation, vasculitis, or GN
[2024-12-24 16:39] LABS: Glucose Point of Care 170 mg/dl (65-105)
[2024-12-24] MEDS: HEPARIN SODIUM 5,000 UNITS/ML VIAL 5000 UNITS SUB-Q (19:41)
[2024-12-24 20:19] LABS: Glucose Point of Care 197 mg/dl (65-105)
[2024-12-25] VITALS (8 sets, daily range): BP systolic 100–121; BP diastolic 72–84; PULSE 100–118; RESP 14–16; TEMP 36.2–36.8; O2SAT 96–100
[2024-12-25] MEDS: oxyCODONE HCL (*CRX) 5 MG TAB IR PO (01:06)
[2024-12-25] MEDS: LORazepam INJ (*CRX) 2 MG/ML VIAL 0.5 MG IV PUSH ×2 (03:22→09:32)
--- NOTE | 2024-12-25 03:22 | PC.NURSE ---
patient moved to room 333 for closer observation due to repeatedly trying to pull out dialysis catheter. patient states it is uncomfortable and has to come out right now
[2024-12-25] MEDS: LORazepam (*CRX) 1 MG TABLET PO (04:58)
[2024-12-25] MEDS: METOPROLOL TARTRATE 25 MG TABLET PO (04:58)
[2024-12-25] MEDS: LEVOTHYROXINE SODIUM 125 MCG TABLET 250 MCG PO (05:05)
[2024-12-25 05:58] LABS: Basophils Absolute Auto 0.1 K/mm3 (0.0-0.1); Basophils Percent Auto 0.7 % (0.2-1.2); Eosinophils Absolute Auto 0.4 K/mm3 (0-0.3); Eosinophils Percent Auto 4.7 % (0-4.4); Hematocrit 36.6 % (42.0-52.0); Hemoglobin 10.6 g/dL (14.0-18.0); Immature Granulocyte Absolute 0.04 K/mm3 (0.00-0.031); Immature Granulocyte Percent A 0.5 % (0-0.5); Lymphocytes Absolute Auto 2.22 K/mm3 (0.9-3.2); Lymphocytes Percent Auto 26.1 % (18.3-44.2); Mean Corpuscular Hemoglobin 24.4 pg (26-34); Mean Corpuscular Volume 84.3 fl (80-100); Mean Platelet Volume 9.9 fl (7.4-10.4); Monocytes Absolute Auto 0.8 K/mm3 (0.1-0.6); Monocytes Percent Auto 9.8 % (2.6-8.5); Neutrophils Absolute Auto 4.9 K/mm3 (1.3-6.7); Neutrophils Percent Auto 58.2 % (45.5-73.1); Nucleated Red Blood Cells Perc 1.5 % (0.0-0.2); Platelet Count Result 185 k/mm3 (150-375); Red Blood Count 4.34 M/mm3 (4.6-6.20); Red Cell Distribution Width 18.7 % (11.5-14.5); White Blood Count 8.5 K/mm3 (4.5-10.0)
[2024-12-25 06:13] LABS: INR 1.2; Prothrombin Time 15.8 Seconds (11.1-14.7)
[2024-12-25 06:16] LABS: Alanine Aminotransferase 347 U/L (6-50); Albumin Level 2.5 g/dL (3.5-5.1); Alkaline Phosphatase 251 U/L (38-126); Anion Gap 7 mmol/L (4-12); Aspartate Amino Transferase 119 U/L (17-59); Bilirubin,Total 0.7 mg/dL (0.2-1.3); Blood Urea Nitrogen 37 mg/dL (9-20); Calcium 7.6 mg/dL (8.4-10.2); Carbon Dioxide 25 mmol/L (22-30); Chloride 102 mmol/L (98-107); Estimated CRCL calculation 30 ml/min; Estimated Glomerular Filt Rate 21; Glucose 156 mg/dL (65-110); Magnesium 1.8 mg/dL (1.6-2.3); Potassium 3.7 mmol/L (3.4-5.0); Sodium 134 mmol/L (137-145)
[2024-12-25 06:23] LABS: Hypochromasia 1+; Platelet Estimate Adequate (Adequate)
[2024-12-25 06:24] LABS: Anisocytosis 1+; Burr Cells 2+; Ovalocytes 1+; Schistocytes None Seen
[2024-12-25 07:53] LABS: Glucose Point of Care 149 mg/dl (65-105)
[2024-12-25] MEDS: NICOTINE (*PBKC) 21 MG PATCH 1 PATCH TRANSDERM (09:33)
[2024-12-25] MEDS: HEPARIN SODIUM 5,000 UNITS/ML VIAL 5000 UNITS SUB-Q ×2 (09:33→20:49)
[2024-12-25 11:42] LABS: Glucose Point of Care 133 mg/dl (65-105)
[2024-12-25] MEDS: HALOPERIDOL LACTATE 5 MG/ML VIAL IM (12:10)
--- NOTE | 2024-12-25 12:24 | P.PNNP_ITS ---
Progress Note: A&P Assessment and Plan (1) Acute kidney injury: Code(s): N17.9 - Acute kidney failure, unspecified Status: Acute Assessment and Plan: * as noted on admission * evaluation to date noted: * renal u/s normal * urine eosinophils negative * nephrotic range proteinuria * prerenal urine electrolytes * CPK mildly elevated (but not enought to affect kidney function) * further serologies pending * outpatient evaluation noted - normal complements but hematuria with positive * initated [facility]/HD * HD day before yesterday (12/21) * HD yesterday (12/22) * HD today (12/23) * s/p renal biopsy on 12/22 - this shows diabetic nephropathy plus severe interstitial fibrosis * the patient had 3 dialyses in a row. * BUN creatinine and electrolytes are much better. * Volume status looks okay. (2) Stage 3b chronic kidney disease: Code(s): N18.32 - Chronic kidney disease, stage 3b Status: Chronic Assessment and Plan: * baseline creatinine runs around 1.7 - 2.3mg/dl * secondary to diabetes and hypertension Per renal biopsy results (3) Pneumonia: Code(s): J18.9 - Pneumonia, unspecified organism Status: Acute Assessment and Plan: * admission CXR with bibasilar infiltrates * white count is down to normal. * No fevers. * Blood cultures negative. * Sputum culture showed yeast and staff * on no antibiotic. He completed the 7 day course. (4) Heart failure with mildly reduced ejection fraction: Code(s): I50.22 - Chronic systolic (congestive) heart failure Status: Acute Assessment and Plan: * known history * repeat Echo (12/18) noted: * severely reduced systolic function with EF 25-30% * diastolic dysfunction * mild valvular disease * moderate pulmonary hypertension * CXR with cardiomegaly, bibasilar infiltrates and small pleural effusions * Entresto and diuretics on hold given #1 * Removing some fluid with dialysis. * Repeat the chest x-ray and see where we are with fluid burden. * Okay from the renal standpoint to restart Entresto to help the heart out. * Cardiology following . I will let them manage this medication. (5) Transaminitis: Code(s): R74.01 - Elevation of levels of liver transaminase levels Status: Deleted Assessment and Plan: * normal earlier in November 2024 * liver enzymes are improving. They seemed to peak on the 1st of the month. perhaps fluid removal has improved the congestive hepatopathy seen on biopsy. * hepatitis panel negative * abd US showing cholelithiasis and mildly dilated CBD; liver is normal in appearance * holding statin * follow trend (6) Anemia: Code(s): D64.9 - Anemia, unspecified Status: Acute Assessment and Plan: * related to ELEANOR, CKD, and acute illness * follow trend of H/H * Epogen with HD if needed . So far it looks okay. If it drops again tomorrow will start EPO on Friday (7) Peripheral vascular disease: Code(s): I73.9 - Peripheral vascular disease, unspecified Status: Acute Assessment and Plan: * known history * on zetia but statin on hold given elevated LFTs * complicated by ongoing smoking * arterial dopplers noted (8) Diabetes mellitus type 2 with complications: Code(s): E11.8 - Type 2 diabetes mellitus with unspecified complications Status: Chronic Assessment and Plan: * follow accu-cheks * glycemic control per hospitalist (9) Encephalopathy: Code(s): G93.40 - Encephalopathy, unspecified Status: Acute Assessment and Plan: patient is still confused. Thought to possibly related to high BUN and creatinine however he has had 3 treatments in a row and his numbers are good so this should not be the case any longer. I think he would have improved by now. Ammonia level is okay. B12 and folate are okay. White count is okay and no fevers so unlikely to be related to infection. Sodium is okay , magnesium and calcium are okay. check a CT of the brain. Will check a blood gas to make sure he does not have CO2 retention. He has done this in the past but does not have baseline issues that I know of. Subjective Date/time seen: 12/25/24 12:24 Interval history: patient is confused. Lying in bed soft restraints on his wrists. Asking to be discharged Exam Narrative: General: elderly male in NAD, lying in the hospital bed, Heart: normal S1 and S2; no rub Lungs: coarse breath sounds Abdomen: obese but soft, nontender, nondistended, positive bowel sounds Extremities: no cyanosis or clubbing; 1+ edema in RLE; s/p left AKA Skin: no rash Objective Data Vital Signs Vital Signs: Vital Signs - 24 hr 12/24/24 14:00 12/24/24 14:43 12/24/24 16:00 Temperature 97.2 F L Pulse Rate 105 H 100 105 H Respiratory Rate 18 Blood Pressure 123/83 Pulse Oximetry 97 Oxygen Delivery Oxygen Flow Rate 12/24/24 19:41 12/24/24 20:00 12/24/24 20:00 Temperature Pulse Rate 105 H 113 H Respiratory Rate Blood Pressure Pulse Oximetry Oxygen Delivery Room Air Oxygen Flow Rate 12/24/24 20:45 12/25/24 00:00 12/25/24 04:00 Temperature 97.2 F L Pulse Rate 109 H 103 H 109 H Respiratory Rate 16 Blood Pressure 96/71 L Pulse Oximetry 98 Oxygen Delivery Oxygen Flow Rate 12/25/24 04:50 12/25/24 04:58 12/25/24 05:55 Temperature 97.1 F L Pulse Rate 103 H 103 H Respiratory Rate 16 Blood Pressure 100/73 Pulse Oximetry 96 100 Oxygen Delivery Nasal Cannula Oxygen Flow Rate 2 12/25/24 08:00 Temperature Pulse Rate Respiratory Rate Blood Pressure Pulse Oximetry Oxygen Delivery Room Air Oxygen Flow Rate Intake/Output Intake/Output: Intake & Output 12/22/24 12/23/24 12/24/24 12/25/24 23:59 23:59 23:59 23:59 Intake Total 803 162 6768 290 Output Total 1650 3750 3200 150 Balance -1430 -3210 -1773 140 Meds/Results Medications: Active Medications Generic Name Dose Route Start Last Admin Trade Name Freq PRN Reason Stop Dose Admin Acetaminophen 650 mg 12/17/24 16:18 12/18/24 20:54 Acetaminophen 325 Mg Tablet PO 650 mg Q4H PRN Administration Mild Pain (1-3) or Fever Hydrocodone Bitart/Acetaminophen 1 tab 12/17/24 19:37 12/19/24 15:50 Hydrocodone/Acetaminophen (*Crx) 5-325 Mg Tablet PO 1 tab Q8H PRN Administration pain 4-6 Aspirin 81 mg 12/20/24 08:00 12/25/24 10:22 Aspirin 81 Mg Chewable Tablet PO Not Given DAILY@0800 COUNT INCLUDES THE [facility] Calcium Carbonate 200 mg 12/18/24 22:39 Calcium Carbonate (Tums) 500 Mg (200 Mg Elemental) PO Q6H PRN Indigestion Dextrose 12.5 gm 03/28/25 22:39 Dextrose 50% 25 Gm/50 Ml Syringe IV PUSH PRN PRN Hypoglycemia Protocol Diphenhydramine HCl 12.5 mg 12/18/24 14:23 12/24/24 19:41 Diphenhydramine Hcl Elixir 12.5 Mg/5 Ml Udc PO 12.5 mg Q6H PRN Administration Itching Docusate Sodium 100 mg 12/23/24 21:00 12/25/24 10:22 Docusate Sodium 100 Mg Capsule PO Not Given Q12HR REGINA Ezetimibe 10 mg 12/18/24 09:00 12/25/24 10:22 Ezetimibe 10 Mg Tablet PO Not Given DAILY REGINA Glucagon 1 mg 12/17/24 22:39 Glucagon For Inj 1 Mg Vial IM PRN PRN Hypoglycemia Protocol Glucose 15 gm 12/17/24 22:39 Glucose Oral Gel 15 Gm Of Glucse In 37.5 Gm Tube PO PRN PRN Hypoglycemia Protocol Haloperidol Lactate 1 mg 12/25/24 09:39 Haloperidol Lactate 5 Mg/Ml Vial IM Q6H PRN Agitation Heparin Sodium (Porcine) 5,000 units 12/18/24 09:00 12/25/24 09:33 Heparin Sodium 5,000 Units/Ml Vial SUB-Q 5,000 units Q12HR REGINA Administration Dextrose 1,000 mls @ 100 mls/hr 12/17/24 22:39 Dextrose 5% 1,000 Ml IVPB PRN PRN Hypoglycemia Protocol Albumin Human 50 mls @ 999 mls/hr 12/22/24 05:43 Albutein IVPB 01/21/25 05:42 Q10M PRN HYPOTENSION Insulin Aspart 2 - 5 units 12/18/24 11:30 12/25/24 11:40 Insulin Aspart (*Bkc) 100 Units/Ml SUB-Q Not Given ACHS REGINA Protocol Levothyroxine Sodium 250 mcg 12/21/24 06:30 12/25/24 05:05 Levothyroxine Sodium 125 Mcg Tablet PO 250 mcg [id number] REGINA Administration Levothyroxine Sodium 125 mcg 12/26/24 06:30 Levothyroxine Sodium 125 Mcg Tablet PO Mitchell@0630 REGINA Lorazepam 1 mg 12/25/24 09:39 Lorazepam Inj (*Crx) 2 Mg/Ml Vial IV PUSH Q4H PRN Anxiety/agitation/procedures Metoprolol Succinate 50 mg 12/18/24 09:00 12/19/24 09:01 Metoprolol Succinate Ext Rel 50 Mg Tabcr PO 50 mg DAILY REGINA Administration Metoprolol Tartrate 25 mg 12/23/24 14:00 12/25/24 04:58 Metoprolol Tartrate 25 Mg Tablet PO 25 mg Q8HR REGINA Administration Nicotine 1 patch 12/17/24 22:45 12/25/24 09:33 Nicotine (*Pbkc) 21 Mg Patch TRANSDERM 1 patch DAILY REGINA Administration Ondansetron HCl 4 mg 12/17/24 16:18 12/19/24 21:24 Ondansetron Inj 4 Mg/2 Ml Vial IV PUSH 4 mg Q4H PRN Administration Nausea Oxycodone HCl 5 mg 12/22/24 09:12 12/25/24 01:06 Oxycodone Hcl (*Crx) 5 Mg Tab Ir PO 5 mg Q4H PRN Administration Pain Rated 7-10 Sacubitril/Valsartan 1 tab 12/17/24 21:00 12/18/24 08:25 Sacubitril/Valsartan 24-26 Mg Tablet PO 1 tab Q12HR REGINA Administration Sertraline HCl 100 mg 12/18/24 09:00 12/25/24 10:22 Sertraline Hcl 50 Mg Tablet PO Not Given DAILY COUNT INCLUDES THE [facility] Radiology Results: ITS Impressions Lumbar Spine X-Ray 12/17/24 15:44 IMPRESSION: Anterior loss of volume of L1 which is most likely chronic. MRI evaluation advised. Otherwise, No acute osseous abnormality lumbar spine. Degenerative disc disease at the level of L4-L5. Venous Doppler Study 12/18/24 13:13 IMPRESSION: 1. No deep venous thrombosis. Abdomen Ultrasound 12/18/24 13:18 IMPRESSION: 1. Cholelithiasis. No evidence of acute cholecystitis. 2. Mildly dilated common duct. Renal Ultrasound 12/18/24 13:21 IMPRESSION: 1. Normal kidney sizes. No hydronephrosis. Lumbar Spine MRI 12/18/24 15:23 IMPRESSION: Limited examination secondary to motion artifact. No abnormal signal intensity or contrast enhancement is identified within the vertebral body of L1 to suggest acute traumatic injury. Within the visualized intervertebral disc spaces, moderate degenerative disease is noted, as detailed above. Duplex Scan Lower Extremity Artery 12/18/24 21:35 IMPRESSION: Abnormal peak systolic velocity and waveform morphology suggesting a popliteal or tibioperoneal trunk stenosis. Three-vessel blood flow into the right calf with single vessel blood flow into the right foot (on the submitted images) MRCP 12/21/24 08:48 IMPRESSION: 1. Study terminated at patient request prior to obtaining the normal complement of sequences including the MRCP images and which along with some motion artifact on the obtained sequences moderately limits evaluation. 2. Anasarca with small left and moderate-sized right pleural effusions, small amount of ascites and extensive body wall, as enteric and retroperitoneal edema. 3. Normal-appearing gallbladder with no evident cholelithiasis and with no intra or extrahepatic biliary ductal dilation. Sensitivity for tiny gallstones which were suggested on prior ultrasound is limited by motion artifact. 4. Cardiomegaly. Liver Biopsy Ultrasound 12/22/24 10:51 IMPRESSION: 1. Successful Ultrasound-guided random liver biopsy. Chest X-Ray 12/22/24 15:50 IMPRESSION: Interval placement of a nontunneled right internal jugular hemodialysis catheter, in good position and ready for immediate use. Mild pulmonary vascular congestion with small bilateral pleural effusions Renal Biopsy Ultrasound 12/23/24 10:32 IMPRESSION: 1. Ultrasound-guided random left kidney core needle biopsy. Labs Labs: Laboratory Results - last 24 hr 12/24/24 12/24/24 12/25/24 16:36 20:05 05:32 WBC 8.5 RBC 4.34 L Hgb 10.6 L Hct 36.6 L MCV 84.3 MCH 24.4 L MCHC 29.0 L RDW 18.7 H Plt Count 185 MPV 9.9 Immature Gran % (Auto) 0.5 Neut % (Auto) 58.2 Lymph % (Auto) 26.1 [place] % (Auto) 9.8 H Eos % (Auto) 4.7 H Baso % (Auto) 0.7 Lymph # (Auto) 2.22 [place] # (Auto) 0.8 H Eos # (Auto) 0.4 H Baso # (Auto) 0.1 Abs Immat Gran (auto) 0.04 H Absolute Neuts (auto) 4.9 Absolute Nucleated RBC 0.130 H Band Neutrophils % Not Reportable Nucleated RBC % 1.5 H Platelet Estimate Adequate Hypochromasia 1+ Anisocytosis 1+ Ovalocytes 1+ [place] Cells 2+ Schistocytes None seen PT 15.8 H INR 1.2 Sodium 134 L Potassium 3.7 Chloride 102 Carbon Dioxide 25 Anion Gap 7 BUN 37 H D Creatinine 3.06 H Estim Creat Clear Calc 30 Estimated GFR 21 L Glucose 156 H POC Capillary Glucose 170 H 197 H Calcium 7.6 L Magnesium 1.8 Total Bilirubin 0.7 AST 119 H ALT 347 H Alkaline Phosphatase 251 H Total Protein 5.0 L Albumin 2.5 L 12/25/24 12/25/24 07:49 11:39 WBC RBC Hgb Hct MCV MCH MCHC RDW Plt Count MPV Immature Gran % (Auto) Neut % (Auto) Lymph % (Auto) [place] % (Auto) Eos % (Auto) Baso % (Auto) Lymph # (Auto) [place] # (Auto) Eos # (Auto) Baso # (Auto) Abs Immat Gran (auto) Absolute Neuts (auto) Absolute Nucleated RBC Band Neutrophils % Nucleated RBC % Platelet Estimate Hypochromasia Anisocytosis Ovalocytes [place] Cells Schistocytes PT INR Sodium Potassium Chloride Carbon Dioxide Anion Gap BUN Creatinine Estim Creat Clear Calc Estimated GFR Glucose POC Capillary Glucose 149 H 133 H Calcium Magnesium Total Bilirubin AST ALT Alkaline Phosphatase Total Protein Albumin
--- NOTE | 2024-12-25 12:52 | PM.PNCARD ---
Progress Note: A&P Assessment and Plan (1) Atrial flutter with rapid ventricular response: Code(s): I48.92 - Unspecified atrial flutter Status: Acute (2) Cardiomyopathy: Code(s): I42.9 - Cardiomyopathy, unspecified Status: Acute Plan Unfortunate 64-year-old man with a a difficult combination of problems including worsening renal insufficiency resulting in the need to institute renal replacement therapy. Apparently tolerated hemodialysis fairly well yesterday. He does have left ventricular systolic dysfunction and atrial fibrillation as mentioned by my partners. When he is a candidate for it anticoagulation should be initiated because of his AF. Will continue to follow with you. 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 He currently no longer feels weak and denies any chest discomfort shortness of breath. He currently has no complaints. Date of service 12/21: Sleepy at the time of my visit; family at bedside. Renal function worsening. Date of service 12/23/2024: Complains of pain all over. He denies feeling palpitations, shortness of breath, chest pain. Date of service 12/25/2024: Patient seen in room 333 sedated and has been placed in restraints because of agitated behavior earlier. Concerned that he might pull out his temporary dialysis catheter. Exam Const: General: comfortable Other: Significantly obese gentleman sedated in restraints. HENMT: Mouth: Yes moist mucous membranes Eyes: EOM: EOMs intact bilaterally Neck: Neck: no JVD Resp: Effort & Inspection: normal respiratory effort Auscultation: clear to auscultation bilaterally and diminished lung sounds Cardio: Rate: tachycardic Rhythm: abnormal rhythm irregularly irregular GI: GI Palp: Yes Soft to palpation Skin: General skin exam: normal color Neuro: Other: Sedated Extrem: Other: Left AKA and right TMA, no significant edema on the right Objective Data Vital Signs Vital Signs: Vital Signs - 24 hr 12/24/24 14:00 12/24/24 14:43 12/24/24 16:00 Temperature 36.2 C L Pulse Rate 105 H 100 105 H Respiratory Rate 18 Blood Pressure 123/83 Pulse Oximetry 97 Oxygen Delivery Oxygen Flow Rate 12/24/24 19:41 12/24/24 20:00 12/24/24 20:00 Temperature Pulse Rate 105 H 113 H Respiratory Rate Blood Pressure Pulse Oximetry Oxygen Delivery Room Air Oxygen Flow Rate 12/24/24 20:45 12/25/24 00:00 12/25/24 04:00 Temperature 36.2 C L Pulse Rate 109 H 103 H 109 H Respiratory Rate 16 Blood Pressure 96/71 L Pulse Oximetry 98 Oxygen Delivery Oxygen Flow Rate 12/25/24 04:50 12/25/24 04:58 12/25/24 05:55 Temperature 36.2 C L Pulse Rate 103 H 103 H Respiratory Rate 16 Blood Pressure 100/73 Pulse Oximetry 96 100 Oxygen Delivery Nasal Cannula Oxygen Flow Rate 2 12/25/24 08:00 Temperature Pulse Rate Respiratory Rate Blood Pressure Pulse Oximetry Oxygen Delivery Room Air Oxygen Flow Rate Intake/Output Intake/Output: Intake & Output 12/22/24 12/23/24 12/24/24 12/25/24 23:59 23:59 23:59 23:59 Intake Total 271 125 6025 290 Output Total 1650 3750 3200 150 [facility] -1430 -3210 -1773 140 Meds/Results Medications: Active Medications Generic Name Dose Route Start Last Admin Trade Name Freq PRN Reason Stop Dose Admin Acetaminophen 650 mg 12/17/24 16:18 12/18/24 20:54 Acetaminophen 325 Mg Tablet PO 650 mg Q4H PRN Administration Mild Pain (1-3) or Fever Hydrocodone Bitart/Acetaminophen 1 tab 12/17/24 19:37 12/19/24 15:50 Hydrocodone/Acetaminophen (*Crx) 5-325 Mg Tablet PO 1 tab Q8H PRN Administration pain 4-6 Aspirin 81 mg 12/20/24 08:00 12/25/24 10:22 Aspirin 81 Mg Chewable Tablet PO Not Given DAILY@0800 REGINA Calcium Carbonate 200 mg 12/18/24 22:39 Calcium Carbonate (Tums) 500 Mg (200 Mg Elemental) PO Q6H PRN Indigestion Dextrose 12.5 gm 12/17/24 22:39 Dextrose 50% 25 Gm/50 Ml Syringe IV PUSH PRN PRN Hypoglycemia Protocol Diphenhydramine HCl 12.5 mg 12/18/24 14:23 12/24/24 19:41 Diphenhydramine Hcl Elixir 12.5 Mg/5 Ml Udc PO 12.5 mg Q6H PRN Administration Itching Docusate Sodium 100 mg 12/23/24 21:00 12/25/24 10:22 Docusate Sodium 100 Mg Capsule PO Not Given Q12HR REGINA Ezetimibe 10 mg 12/18/24 09:00 12/25/24 10:22 Ezetimibe 10 Mg Tablet PO Not Given DAILY REGINA Glucagon 1 mg 12/17/24 22:39 Glucagon For Inj 1 Mg Vial IM PRN PRN Hypoglycemia Protocol Glucose 15 gm 12/17/24 22:39 Glucose Oral Gel 15 Gm Of Glucse In 37.5 Gm Tube PO PRN PRN Hypoglycemia Protocol Haloperidol Lactate 1 mg 12/25/24 09:39 Haloperidol Lactate 5 Mg/Ml Vial IM Q6H PRN Agitation Heparin Sodium (Porcine) 5,000 units 12/18/24 09:00 12/25/24 09:33 Heparin Sodium 5,000 Units/Ml Vial SUB-Q 5,000 units Q12HR REGINA Administration Dextrose 1,000 mls @ 100 mls/hr 12/17/24 22:39 Dextrose 5% 1,000 Ml IVPB PRN PRN Hypoglycemia Protocol Albumin Human 50 mls @ 999 mls/hr 12/22/24 05:43 Albutein IVPB 01/21/25 05:42 Q10M PRN HYPOTENSION Insulin Aspart 2 - 5 units 12/18/24 11:30 12/25/24 11:40 Insulin Aspart (*Bkc) 100 Units/Ml SUB-Q Not Given ACHS REGINA Protocol Levothyroxine Sodium 250 mcg 12/21/24 06:30 12/25/24 05:05 Levothyroxine Sodium 125 Mcg Tablet PO 250 mcg [id number] REGINA Administration Levothyroxine Sodium 125 mcg 12/26/24 06:30 Levothyroxine Sodium 125 Mcg Tablet PO Mitchell@0630 REGINA Lorazepam 1 mg 12/25/24 09:39 Lorazepam Inj (*Crx) 2 Mg/Ml Vial IV PUSH Q4H PRN Anxiety/agitation/procedures Metoprolol Succinate 50 mg 12/18/24 09:00 12/19/24 09:01 Metoprolol Succinate Ext Rel 50 Mg Tabcr PO 50 mg DAILY REGINA Administration Metoprolol Tartrate 25 mg 12/23/24 14:00 12/25/24 04:58 Metoprolol Tartrate 25 Mg Tablet PO 25 mg Q8HR REGINA Administration Nicotine 1 patch 12/17/24 22:45 12/25/24 09:33 Nicotine (*Pbkc) 21 Mg Patch TRANSDERM 1 patch DAILY REGINA Administration Ondansetron HCl 4 mg 12/17/24 16:18 12/19/24 21:24 Ondansetron Inj 4 Mg/2 Ml Vial IV PUSH 4 mg Q4H PRN Administration Nausea Oxycodone HCl 5 mg 12/22/24 09:12 12/25/24 01:06 Oxycodone Hcl (*Crx) 5 Mg Tab Ir PO 5 mg Q4H PRN Administration Pain Rated 7-10 Sacubitril/Valsartan 1 tab 12/17/24 21:00 12/18/24 08:25 Sacubitril/Valsartan 24-26 Mg Tablet PO 1 tab Q12HR REGINA Administration Sertraline HCl 100 mg 12/18/24 09:00 12/25/24 10:22 Sertraline Hcl 50 Mg Tablet PO Not Given DAILY [facility] Radiology Results: ITS Impressions Lumbar Spine X-Ray 12/17/24 15:44 IMPRESSION: Anterior loss of volume of L1 which is most likely chronic. MRI evaluation advised. Otherwise, No acute osseous abnormality lumbar spine. Degenerative disc disease at the level of L4-L5. Venous Doppler Study 12/18/24 13:13 IMPRESSION: 1. No deep venous thrombosis. Abdomen Ultrasound 12/18/24 13:18 IMPRESSION: 1. Cholelithiasis. No evidence of acute cholecystitis. 2. Mildly dilated common duct. Renal Ultrasound 12/18/24 13:21 IMPRESSION: 1. Normal kidney sizes. No hydronephrosis. Lumbar Spine MRI 12/18/24 15:23 IMPRESSION: Limited examination secondary to motion artifact. No abnormal signal intensity or contrast enhancement is identified within the vertebral body of L1 to suggest acute traumatic injury. Within the visualized intervertebral disc spaces, moderate degenerative disease is noted, as detailed above. Duplex Scan Lower Extremity Artery 12/18/24 21:35 IMPRESSION: Abnormal peak systolic velocity and waveform morphology suggesting a popliteal or tibioperoneal trunk stenosis. Three-vessel blood flow into the right calf with single vessel blood flow into the right foot (on the submitted images) MRCP 12/21/24 08:48 IMPRESSION: 1. Study terminated at patient request prior to obtaining the normal complement of sequences including the MRCP images and which along with some motion artifact on the obtained sequences moderately limits evaluation. 2. Anasarca with small left and moderate-sized right pleural effusions, small amount of ascites and extensive body wall, as enteric and retroperitoneal edema. 3. Normal-appearing gallbladder with no evident cholelithiasis and with no intra or extrahepatic biliary ductal dilation. Sensitivity for tiny gallstones which were suggested on prior ultrasound is limited by motion artifact. 4. Cardiomegaly. Liver Biopsy Ultrasound 12/22/24 10:51 IMPRESSION: 1. Successful Ultrasound-guided random liver biopsy. Chest X-Ray 12/22/24 15:50 IMPRESSION: Interval placement of a nontunneled right internal jugular hemodialysis catheter, in good position and ready for immediate use. Mild pulmonary vascular congestion with small bilateral pleural effusions Renal Biopsy Ultrasound 12/23/24 10:32 IMPRESSION: 1. Ultrasound-guided random left kidney core needle biopsy. Labs Labs: Laboratory Results - last 24 hr 12/24/24 12/24/24 12/25/24 16:36 20:05 05:32 WBC 8.5 RBC 4.34 L Hgb 10.6 L Hct 36.6 L MCV 84.3 MCH 24.4 L MCHC 29.0 L RDW 18.7 H Plt Count 185 MPV 9.9 Immature Gran % (Auto) 0.5 Neut % (Auto) 58.2 Lymph % (Auto) 26.1 [place] % (Auto) 9.8 H Eos % (Auto) 4.7 H Baso % (Auto) 0.7 Lymph # (Auto) 2.22 [place] # (Auto) 0.8 H Eos # (Auto) 0.4 H Baso # (Auto) 0.1 Abs Immat Gran (auto) 0.04 H Absolute Neuts (auto) 4.9 Absolute Nucleated RBC 0.130 H Band Neutrophils % Not Reportable Nucleated RBC % 1.5 H Platelet Estimate Adequate Hypochromasia 1+ Anisocytosis 1+ Ovalocytes 1+ [place] Cells 2+ Schistocytes None seen PT 15.8 H INR 1.2 Sodium 134 L Potassium 3.7 Chloride 102 Carbon Dioxide 25 Anion Gap 7 BUN 37 H D Creatinine 3.06 H Estim Creat Clear Calc 30 Estimated GFR 21 L Glucose 156 H POC Capillary Glucose 170 H 197 H Calcium 7.6 L Magnesium 1.8 Total Bilirubin 0.7 AST 119 H ALT 347 H Alkaline Phosphatase 251 H Total Protein 5.0 L Albumin 2.5 L 12/25/24 12/25/24 07:49 11:39 WBC RBC Hgb Hct MCV MCH MCHC RDW Plt Count MPV Immature Gran % (Auto) Neut % (Auto) Lymph % (Auto) [place] % (Auto) Eos % (Auto) Baso % (Auto) Lymph # (Auto) [place] # (Auto) Eos # (Auto) Baso # (Auto) Abs Immat Gran (auto) Absolute Neuts (auto) Absolute Nucleated RBC Band Neutrophils % Nucleated RBC % Platelet Estimate Hypochromasia Anisocytosis Ovalocytes [place] Cells Schistocytes PT INR Sodium Potassium Chloride Carbon Dioxide Anion Gap BUN Creatinine Estim Creat Clear Calc Estimated GFR Glucose POC Capillary Glucose 149 H 133 H Calcium Magnesium Total Bilirubin AST ALT Alkaline Phosphatase Total Protein Albumin
--- NOTE | 2024-12-25 13:11 | P.PNIM_ITS ---
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 iv ativan prn. haldol prn labs stable or unremarkable. kathy check ammonia, abg, ct head. panculture. # Transaminitis: On admission, AST 215 and ALT 201. AP 340 with normal bili. Levels normal earlier this month. Hepatitis panel negative. Abd US showing cholelithiasis and mildly dilated CBD. Liver is normal in appearance. lipitor held. Repeat levels on 12/20 much worse with AST 1539, ALT 1066, AP 479, normal bili. Repeated CMP showed liver enzymes are trending down Lactic acid 1.1. Acet level <10 Possible due to congestion due to heart failure Consider autoimmune with + IV fluids stopped. GI consulted and appreciate their input. AST better. Unable to get MRCP Status post liver biopsy 12/22/2024 colon pathology with congestive hepatopathy hepatic fibrosis score 1. # Acute on chronic kidney failure: Patient presents with weakness and may have underlying PNA. Cr on admission 4.3. Baseline Cr 2.1-2.9 range. He was started on IV fluids. Urine eos negative. Eve 42. Total CK 371. Urine prot/Cr 4.7gm consistent with nephrotic syndrome. Complement normal. Hx of + 1:640. Renal US normal. Nephrology consulted and appreciate their input. Cryoglobulin pending. Phos 6.5. Creatinine is trending up, Phos remains elevated. HD catheter placement 12/22/2024 He has been started on hemodialysis. Status post renal biopsy 12/23/2024: Renal biopsy pending # Pneumonia: Patient presents with weakness after having cold and cough symptoms for 3 weeks. No benefit after 2 Z-packs. CXR showing bibasilar infiltrates. No fevers or hypoxia. WBC 12K. He was started on Rocephin and Doxycycline. WBC normal now. BCx NGTD. MRSA screen negative. Urine Ag pending. Sputum Cx growing MSSA and yeast. Abx to complete a 7 day course. #Heart failure with reduced ejection fraction: Echo showing severely reduced systolic fxn with EF 25-30% with diastolic dysfunction, mild valve disease and moderate pulmonary HTN. BNP >30K. CXR showing CMG, bibasilar infiltrates and small pleural effusions. Entresto and finerenone on hold. Diuretics not listed on home med list. Eve 42 so suspect good renal perfusion. Hold Toprol XL. Monitor UOP, renal fxn, daily weights and fluid balance Hold Entresto because of worsening kidney function # Diabetes mellitus type 2 with complications: A1c 7%. The patient's blood glucose was reviewed Patient was on an insulin pump at home. Concern patient was unable to handle his pump here so this was held. Glucose remains well controlled off the insulin pump. He is eating some Continue AccuCheks covering with sliding scale. Hypoglycemia protocol available as needed. Continue to monitor # new onset atrial fibrillation. On metoprolol. Eliquis when able currently not able # nonobstructive coronary artery disease per L at C 02/2024. On aspirin. Statin on hold due to elevated liver enzymes. # Peripheral vascular disease: Patient with known PAD. Venous doppler RLE negative for DVT. Arterial doppler RLE suggestive of a popliteal or tibioperoneal trunk stenosis. There is three-vessel blood flow into the right calf with single vessel blood flow into the right foot. Continue Zetia and ASA. Resume Lipitor when able. # Hypothyroidism: Review of Endocrine note from 11/12 showing he was to skip the Friday Synthroid dose. TSH is 46.4. Free T4 is low-normal at 0.96. Total T3 is 0.5. Patient is on 250 mcg daily of Synthroid. Suspect the skipped dose has resulted in the change in his thyroid panel. Will adjust to 250mcg daily except 125mcg on Sundays. # Tobacco dependence: Patient was educated about the benefits of smoking cessation # urinary retention status post cystoscopy with passive dilation of mild bulbar narrowing. Complex Hernandez catheter placement with 16 Malay coude on 12/20/2024. Maintain Hernandez catheter until improvement in volume status and mobility. # Low back pain - Lumbar MRI performed but no acute finding seen on limited imaging due to motion artifact. # DVT prophylaxis - Heparin # Code status - full Subjective Date/time seen: 12/25/24 13:11 Interval history: Agitated overnight on restraints. Received IV Ativan p.r.n. Review of Systems Review of Systems: All systems reviewed & are unremarkable except as noted in HPI and below Exam Narrative: GENERAL: Ill-appearing, in no acute distress. Well-nourished. Confusion agitated - EYES: EOMI. Anicteric. - HENT: Moist mucous membranes. - LUNGS: Coarse breath sound bilaterall y - CARDIOVASCULAR: Regular rate and rhyth m. No murmur. No JVD. - ABDOMEN: Soft, non-tender and non-dist ended. No palpable masses. ; Hernandez catheter in-situ, scrotum is enlarged - EXTREMITIES: No edema. Left above kne e amputation - NEUROLOGIC: No focal neurological defi cits. CN II-XII grossly intact. - PSYCHIATRIC: Awake, confusion agitated . knows self. - SKIN: No rashes or lesions. Warm. - LYMPH: No cervical lymphadenopathy. Objective Data Vital Signs Vital Signs: Vital Signs - 24 hr 12/24/24 14:00 12/24/24 14:43 12/24/24 16:00 Temperature 97.2 F L Pulse Rate 105 H 100 105 H Respiratory Rate 18 Blood Pressure 123/83 Pulse Oximetry 97 Oxygen Delivery Oxygen Flow Rate 12/24/24 19:41 12/24/24 20:00 12/24/24 20:00 Temperature Pulse Rate 105 H 113 H Respiratory Rate Blood Pressure Pulse Oximetry Oxygen Delivery Room Air Oxygen Flow Rate 12/24/24 20:45 12/25/24 00:00 12/25/24 04:00 Temperature 97.2 F L Pulse Rate 109 H 103 H 109 H Respiratory Rate 16 Blood Pressure 96/71 L Pulse Oximetry 98 Oxygen Delivery Oxygen Flow Rate 12/25/24 04:50 12/25/24 04:58 12/25/24 05:55 Temperature 97.1 F L Pulse Rate 103 H 103 H Respiratory Rate 16 Blood Pressure 100/73 Pulse Oximetry 96 100 Oxygen Delivery Nasal Cannula Oxygen Flow Rate 2 12/25/24 08:00 Temperature Pulse Rate Respiratory Rate Blood Pressure Pulse Oximetry Oxygen Delivery Room Air Oxygen Flow Rate Intake/Output Intake/Output: Intake & Output 12/22/24 12/23/24 12/24/24 12/25/24 23:59 23:59 23:59 23:59 Intake Total 614 306 6351 290 Output Total 1650 3750 3200 150 Balance -1430 -3210 -1773 140 Meds/Results Medications: Active Medications Generic Name Dose Route Start Last Admin Trade Name Freq PRN Reason Stop Dose Admin Acetaminophen 650 mg 12/17/24 16:18 12/18/24 20:54 Acetaminophen 325 Mg Tablet PO 650 mg Q4H PRN Administration Mild Pain (1-3) or Fever Hydrocodone Bitart/Acetaminophen 1 tab 12/17/24 19:37 12/19/24 15:50 Hydrocodone/Acetaminophen (*Crx) 5-325 Mg Tablet PO 1 tab Q8H PRN Administration pain 4-6 Aspirin 81 mg 12/20/24 08:00 12/25/24 10:22 Aspirin 81 Mg Chewable Tablet PO Not Given DAILY@0800 [facility] Calcium Carbonate 200 mg 12/18/24 22:39 Calcium Carbonate (Tums) 500 Mg (200 Mg Elemental) PO Q6H PRN Indigestion Dextrose 12.5 gm 12/17/24 22:39 Dextrose 50% 25 Gm/50 Ml Syringe IV PUSH PRN PRN Hypoglycemia Protocol Diphenhydramine HCl 12.5 mg 12/18/24 14:23 12/24/24 19:41 Diphenhydramine Hcl Elixir 12.5 Mg/5 Ml Udc PO 12.5 mg Q6H PRN Administration Itching Docusate Sodium 100 mg 12/23/24 21:00 12/25/24 10:22 Docusate Sodium 100 Mg Capsule PO Not Given Q12HR [facility] Ezetimibe 10 mg 12/18/24 09:00 12/25/24 10:22 Ezetimibe 10 Mg Tablet PO Not Given DAILY [facility] Glucagon 1 mg 12/17/24 22:39 Glucagon For Inj 1 Mg Vial IM PRN PRN Hypoglycemia Protocol Glucose 15 gm 12/17/24 22:39 Glucose Oral Gel 15 Gm Of Glucse In 37.5 Gm Tube PO PRN PRN Hypoglycemia Protocol Haloperidol Lactate 1 mg 12/25/24 09:39 Haloperidol Lactate 5 Mg/Ml Vial IM Q6H PRN Agitation Heparin Sodium (Porcine) 5,000 units 12/18/24 09:00 12/25/24 09:33 Heparin Sodium 5,000 Units/Ml Vial SUB-Q 5,000 units Q12HR REGINA Administration Dextrose 1,000 mls @ 100 mls/hr 12/17/24 22:39 Dextrose 5% 1,000 Ml IVPB PRN PRN Hypoglycemia Protocol Albumin Human 50 mls @ 999 mls/hr 12/22/24 05:43 Albutein IVPB 01/21/25 05:42 Q10M PRN HYPOTENSION Insulin Aspart 2 - 5 units 12/18/24 11:30 12/25/24 11:40 Insulin Aspart (*Bkc) 100 Units/Ml SUB-Q Not Given ACHS [facility] Protocol Levothyroxine Sodium 250 mcg 12/21/24 06:30 12/25/24 05:05 Levothyroxine Sodium 125 Mcg Tablet PO 250 mcg [id number] REGINA Administration Levothyroxine Sodium 125 mcg 12/26/24 06:30 Levothyroxine Sodium 125 Mcg Tablet PO Mitchell@0630 [facility] Lorazepam 1 mg 12/25/24 09:39 Lorazepam Inj (*Crx) 2 Mg/Ml Vial IV PUSH Q4H PRN Anxiety/agitation/procedures Metoprolol Succinate 50 mg 12/18/24 09:00 12/19/24 09:01 Metoprolol Succinate Ext Rel 50 Mg Tabcr PO 50 mg DAILY [facility] Administration Metoprolol Tartrate 25 mg 12/23/24 14:00 12/25/24 04:58 Metoprolol Tartrate 25 Mg Tablet PO 25 mg Q8HR [facility] Administration Nicotine 1 patch 12/17/24 22:45 12/25/24 09:33 Nicotine (*Pbkc) 21 Mg Patch TRANSDERM 1 patch DAILY [facility]GE[facility] Administration Ondansetron HCl 4 mg 12/17/24 16:18 12/19/24 21:24 Ondansetron Inj 4 Mg/2 Ml Vial IV PUSH 4 mg Q4H PRN Administration Nausea Oxycodone HCl 5 mg 12/22/24 09:12 12/25/24 01:06 Oxycodone Hcl (*Crx) 5 Mg Tab Ir PO 5 mg Q4H PRN Administration Pain Rated 7-10 Sacubitril/Valsartan 1 tab 12/17/24 21:00 12/18/24 08:25 Sacubitril/Valsartan 24-26 Mg Tablet PO 1 tab Q12HR REGINA Administration Sertraline HCl 100 mg 12/18/24 09:00 12/25/24 10:22 Sertraline Hcl 50 Mg Tablet PO Not Given DAILY [facility] Radiology Results: ITS Impressions Lumbar Spine X-Ray 12/17/24 15:44 IMPRESSION: Anterior loss of volume of L1 which is most likely chronic. MRI evaluation advised. Otherwise, No acute osseous abnormality lumbar spine. Degenerative disc disease at the level of L4-L5. Venous Doppler Study 12/18/24 13:13 IMPRESSION: 1. No deep venous thrombosis. Abdomen Ultrasound 12/18/24 13:18 IMPRESSION: 1. Cholelithiasis. No evidence of acute cholecystitis. 2. Mildly dilated common duct. Renal Ultrasound 12/18/24 13:21 IMPRESSION: 1. Normal kidney sizes. No hydronephrosis. Lumbar Spine MRI 12/18/24 15:23 IMPRESSION: Limited examination secondary to motion artifact. No abnormal signal intensity or contrast enhancement is identified within the vertebral body of L1 to suggest acute traumatic injury. Within the visualized intervertebral disc spaces, moderate degenerative disease is noted, as detailed above. Duplex Scan Lower Extremity Artery 12/18/24 21:35 IMPRESSION: Abnormal peak systolic velocity and waveform morphology suggesting a popliteal or tibioperoneal trunk stenosis. Three-vessel blood flow into the right calf with single vessel blood flow into the right foot (on the submitted images) MRCP 12/21/24 08:48 IMPRESSION: 1. Study terminated at patient request prior to obtaining the normal complement of sequences including the MRCP images and which along with some motion artifact on the obtained sequences moderately limits evaluation. 2. Anasarca with small left and moderate-sized right pleural effusions, small amount of ascites and extensive body wall, as enteric and retroperitoneal edema. 3. Normal-appearing gallbladder with no evident cholelithiasis and with no intra or extrahepatic biliary ductal dilation. Sensitivity for tiny gallstones which were suggested on prior ultrasound is limited by motion artifact. 4. Cardiomegaly. Liver Biopsy Ultrasound 12/22/24 10:51 IMPRESSION: 1. Successful Ultrasound-guided random liver biopsy. Chest X-Ray 12/22/24 15:50 IMPRESSION: Interval placement of a nontunneled right internal jugular hemodialysis catheter, in good position and ready for immediate use. Mild pulmonary vascular congestion with small bilateral pleural effusions Renal Biopsy Ultrasound 12/23/24 10:32 IMPRESSION: 1. Ultrasound-guided random left kidney core needle biopsy. Labs Labs: Laboratory Results - last 24 hr 12/24/24 12/24/24 12/25/24 16:36 20:05 05:32 WBC 8.5 RBC 4.34 L Hgb 10.6 L Hct 36.6 L MCV 84.3 MCH 24.4 L MCHC 29.0 L RDW 18.7 H Plt Count 185 MPV 9.9 Immature Gran % (Auto) 0.5 Neut % (Auto) 58.2 Lymph % (Auto) 26.1 [place] % (Auto) 9.8 H Eos % (Auto) 4.7 H Baso % (Auto) 0.7 Lymph # (Auto) 2.22 [place] # (Auto) 0.8 H Eos # (Auto) 0.4 H Baso # (Auto) 0.1 Abs Immat Gran (auto) 0.04 H Absolute Neuts (auto) 4.9 Absolute Nucleated RBC 0.130 H Band Neutrophils % Not Reportable Nucleated RBC % 1.5 H Platelet Estimate Adequate Hypochromasia 1+ Anisocytosis 1+ Ovalocytes 1+ [place] Cells 2+ Schistocytes None seen PT 15.8 H INR 1.2 Sodium 134 L Potassium 3.7 Chloride 102 Carbon Dioxide 25 Anion Gap 7 BUN 37 H D Creatinine 3.06 H Estim Creat Clear Calc 30 Estimated GFR 21 L Glucose 156 H POC Capillary Glucose 170 H 197 H Calcium 7.6 L Magnesium 1.8 Total Bilirubin 0.7 AST 119 H ALT 347 H Alkaline Phosphatase 251 H Total Protein 5.0 L Albumin 2.5 L 04/05/25 04/05/25 07:49 11:39 WBC RBC Hgb Hct MCV MCH MCHC RDW Plt Count MPV Immature Gran % (Auto) Neut % (Auto) Lymph % (Auto) [place] % (Auto) Eos % (Auto) Baso % (Auto) Lymph # (Auto) [place] # (Auto) Eos # (Auto) Baso # (Auto) Abs Immat Gran (auto) Absolute Neuts (auto) Absolute Nucleated RBC Band Neutrophils % Nucleated RBC % Platelet Estimate Hypochromasia Anisocytosis Ovalocytes [place] Cells Schistocytes PT INR Sodium Potassium Chloride Carbon Dioxide Anion Gap BUN Creatinine Estim Creat Clear Calc Estimated GFR Glucose POC Capillary Glucose 149 H 133 H Calcium Magnesium Total Bilirubin AST ALT Alkaline Phosphatase Total Protein Albumin
[2024-12-25 14:42] LABS: Alveolar/Arterial O2 Gradient 40.5 mmHg; Base Excess ABG -3.4 mEq/l (+/-2.0); Fractional Inspired Oxygen 21 %; HCO3 ABG 22.3 mEq/l (22.0-26.0); Oxygen Content ABG 13.7 %vol (16.0-22.0); Oxygen Saturation ABG 88.5 % (95.0-100.0); PCO2 ABG 42.7 mmHg (35.0-45.0); PO2 ABG 58.1 mmHg (80.0-100.0); PO2 FiO2 Ratio Arterial Blood 2.77 %; Total Hemoglobin 11.4 g/dL (12.0-18.0); pH ABG 7.335 (7.350-7.450)
[2024-12-25 14:46] LABS: Oxyhemoglobin 85.6 % THb (90.0-100.0)
[2024-12-25 14:47] LABS: Device ROOM AIR; Site Drawn LEFT BRACHIAL
[2024-12-25 15:20] LABS: Ammonia < 9 umol/L (9-30); Lactic Acid Reflex 1.5 mmol/L (0.7-2.0)
[2024-12-25] MEDS: LORazepam INJ (*CRX) 2 MG/ML VIAL 1 MG IV PUSH ×2 (16:22→20:50)
[2024-12-25 16:40] LABS: Glucose Point of Care 111 mg/dl (65-105)
[2024-12-25] MEDS: HALOPERIDOL LACTATE 5 MG/ML VIAL 1 MG IM (20:49)
[2024-12-25 21:44] LABS: Glucose Point of Care 105 mg/dl (65-105)
[2024-12-25 21:49] LABS: Add Urine Microscopic? YES; Appearance Urine Cloudy (Clear); Bacteria Urine None Seen /hpf; Bilirubin Urine 1+ (Negative); Blood Urine 3+ (Negative); Color Urine Dark Yellow (Yellow); Glucose Urine UA Trace mg/dL (Negative); Hyaline Casts Urine Present /lpf; Ketones Urine Trace mg/dL (Negative); Leukocyte Esterase Ur 1+ LEU/UL (Negative); Need Manual Microscopic Reviewed; Nitrate Urine Negative (Negative); Non Pathogenic Casts >20; Protein Urine 3+ mg/dL (Negative); RBC Urine 21-50 /hpf (0-2); Specific Grav Ur 1.017 (1.001-1.035); Squamous Epithelial Cell Urine Occasional /hpf (Few)
[2024-12-26] MEDS: LORazepam INJ (*CRX) 2 MG/ML VIAL 1 MG IV PUSH ×4 (02:09→20:51)
[2024-12-26 06:11] LABS: Hematocrit 39.2 % (42.0-52.0); Hemoglobin 11.2 g/dL (14.0-18.0); Mean Corpuscular HGB Conc 28.6 g/dl (32-36); Mean Corpuscular Hemoglobin 24.8 pg (26-34); Mean Corpuscular Volume 86.9 fl (80-100); Platelet Count Result 181 k/mm3 (150-375); Red Blood Count 4.51 M/mm3 (4.6-6.20); Red Cell Distribution Width 19.2 % (11.5-14.5); White Blood Count 9.8 K/mm3 (4.5-10.0)
[2024-12-26 06:24] LABS: Alanine Aminotransferase 286 U/L (6-50); Albumin Level 2.7 g/dL (3.5-5.1); Alkaline Phosphatase 248 U/L (38-126); Anion Gap 9 mmol/L (4-12); Aspartate Amino Transferase 84 U/L (17-59); Bilirubin,Total 0.9 mg/dL (0.2-1.3); Blood Urea Nitrogen 44 mg/dL (9-20); Calcium 7.7 mg/dL (8.4-10.2); Carbon Dioxide 24 mmol/L (22-30); Chloride 102 mmol/L (98-107); Estimated CRCL calculation 27 ml/min; Estimated Glomerular Filt Rate 19; Glucose 93 mg/dL (65-110); Magnesium 1.8 mg/dL (1.6-2.3); Phosphorus 4.9 mg/dL (2.5-4.5); Potassium 4.1 mmol/L (3.4-5.0); Sodium 135 mmol/L (137-145)
[2024-12-26 06:32] VITALS: BP 119/81; PULSE 70; RESP 18; O2SAT 94
[2024-12-26 08:26] LABS: Glucose Point of Care 107 mg/dl (65-105)
[2024-12-26] MEDS: HEPARIN SODIUM 5,000 UNITS/ML VIAL 5000 UNITS SUB-Q ×2 (09:28→20:48)
[2024-12-26] MEDS: NICOTINE (*PBKC) 21 MG PATCH 1 PATCH TRANSDERM (09:28)
[2024-12-26 11:45] LABS: Glucose Point of Care 111 mg/dl (65-105)
--- NOTE | 2024-12-26 12:14 | P.PNNP_ITS ---
Progress Note: A&P Assessment and Plan (1) Acute kidney injury: Code(s): N17.9 - Acute kidney failure, unspecified Status: Acute Assessment and Plan: * as noted on admission * evaluation to date noted: * renal u/s normal * urine eosinophils negative * nephrotic range proteinuria * prerenal urine electrolytes * CPK mildly elevated (but not enought to affect kidney function) * further serologies pending * outpatient evaluation noted - normal complements but hematuria with positive * initated [facility]/HD * HD day before yesterday (12/21) * HD yesterday (12/22) * HD today (12/23) * s/p renal biopsy on 12/22 - this shows diabetic nephropathy plus severe interstitial fibrosis * the patient had 3 dialyses in a row on Fri, , and Fri * BUN creatinine and electrolytes are much better. BUN down from 101 to todays value of 37. * Volume status looks okay. (2) Stage 3b chronic kidney disease: Code(s): N18.32 - Chronic kidney disease, stage 3b Status: Chronic Assessment and Plan: * baseline creatinine runs around 1.7 - 2.3mg/dl * secondary to diabetes and hypertension Per renal biopsy results (3) Pneumonia: Code(s): J18.9 - Pneumonia, unspecified organism Status: Acute Assessment and Plan: * admission CXR with bibasilar infiltrates * white count is down to normal. * No fevers. * Blood cultures negative. * Sputum culture showed yeast and staff * on no antibiotic. He completed the 7 day course. (4) Heart failure with mildly reduced ejection fraction: Code(s): I50.22 - Chronic systolic (congestive) heart failure Status: Acute Assessment and Plan: * known history * repeat Echo (12/18) noted: * severely reduced systolic function with EF 25-30% * diastolic dysfunction * mild valvular disease * moderate pulmonary hypertension * CXR with cardiomegaly, bibasilar infiltrates and small pleural effusions * Entresto and diuretics on hold given #1 * Removed some fluid with dialysis. * CXR shows bilateral effusions L>R. * Okay from the renal standpoint to restart Entresto to help the heart out. * Cardiology following . I will let them manage this medication. (5) Transaminitis: Code(s): R74.01 - Elevation of levels of liver transaminase levels Status: Deleted Assessment and Plan: * normal earlier in November 2024 * hepatitis panel negative * abd US showing cholelithiasis and mildly dilated CBD; liver is normal in appearance * holding statin * enzymes are continuing to improve (6) Anemia: Code(s): D64.9 - Anemia, unspecified Status: Acute Assessment and Plan: * related to ELEANOR, CKD, and acute illness * hb up to 11.2 today (7) Peripheral vascular disease: Code(s): I73.9 - Peripheral vascular disease, unspecified Status: Acute Assessment and Plan: * known history * on zetia but statin on hold given elevated LFTs * complicated by ongoing smoking * arterial dopplers noted (8) Diabetes mellitus type 2 with complications: Code(s): E11.8 - Type 2 diabetes mellitus with unspecified complications Status: Chronic Assessment and Plan: * follow accu-cheks * glycemic control per hospitalist (9) Encephalopathy: Code(s): G93.40 - Encephalopathy, unspecified Status: Acute Assessment and Plan: patient is still confused. Thought to possibly related to high BUN and creatinine however he has had 3 treatments in a row and his numbers are good so this should not be the case any longer. I think he would have improved by now. Ammonia level is okay. B12 and folate are okay. White count is okay and no fevers so unlikely to be related to infection. Sodium is okay , magnesium and calcium are okay. CT brain okay ABGs look okay still confused I asked nurse to have neuro see the patient. Subjective Date/time seen: 12/26/24 12:14 Interval history: sleepy from ativan. I talked with nursing and he has been confused this morning. Exam Narrative: General: elderly male in NAD, lying in the hospital bed, Heart: normal S1 and S2; no rub Lungs: coarse breath sounds Abdomen: obese but soft, nontender, nondistended, positive bowel sounds Extremities: no cyanosis or clubbing; 1+ edema in RLE; s/p left AKA Skin: no rash or sq nodules Objective Data Vital Signs Vital Signs: Vital Signs - 24 hr 12/25/24 14:00 12/25/24 20:00 12/25/24 20:49 Temperature 97.2 F L 98.2 F Pulse Rate 100 118 H 118 H Respiratory Rate 14 16 16 Blood Pressure 100/72 121/84 Pulse Oximetry 97 97 97 Oxygen Delivery Room Air 12/26/24 06:32 Temperature Pulse Rate 70 Respiratory Rate 18 Blood Pressure 119/81 Pulse Oximetry 94 Oxygen Delivery Intake/Output Intake/Output: Intake & Output 12/23/24 12/24/24 12/25/24 12/26/24 23:59 23:59 23:59 23:59 Intake Total 540 8368 145 6675 Output Total 3750 3200 300 100 Balance -3210 -2897 342 1557 Meds/Results Medications: Active Medications Generic Name Dose Route Start Last Admin Trade Name Freq PRN Reason Stop Dose Admin Acetaminophen 650 mg 12/17/24 16:18 12/18/24 20:54 Acetaminophen 325 Mg Tablet PO 650 mg Q4H PRN Administration Mild Pain (1-3) or Fever Hydrocodone Bitart/Acetaminophen 1 tab 12/17/24 19:37 12/19/24 15:50 Hydrocodone/Acetaminophen (*Crx) 5-325 Mg Tablet PO 1 tab Q8H PRN Administration pain 4-6 Aspirin 81 mg 12/20/24 08:00 12/26/24 09:52 Aspirin 81 Mg Chewable Tablet PO Not Given DAILY@0800 REGINA Calcium Carbonate 200 mg 12/18/24 22:39 Calcium Carbonate (Tums) 500 Mg (200 Mg Elemental) PO Q6H PRN Indigestion Dextrose 12.5 gm 12/17/24 22:39 Dextrose 50% 25 Gm/50 Ml Syringe IV PUSH PRN PRN Hypoglycemia Protocol Diphenhydramine HCl 12.5 mg 12/18/24 14:23 12/24/24 19:41 Diphenhydramine Hcl Elixir 12.5 Mg/5 Ml Udc PO 12.5 mg Q6H PRN Administration Itching Docusate Sodium 100 mg 12/23/24 21:00 12/26/24 09:52 Docusate Sodium 100 Mg Capsule PO Not Given Q12HR REGINA Ezetimibe 10 mg 12/18/24 09:00 12/26/24 09:52 Ezetimibe 10 Mg Tablet PO Not Given DAILY REGINA Glucagon 1 mg 12/17/24 22:39 Glucagon For Inj 1 Mg Vial IM PRN PRN Hypoglycemia Protocol Glucose 15 gm 12/17/24 22:39 Glucose Oral Gel 15 Gm Of Glucse In 37.5 Gm Tube PO PRN PRN Hypoglycemia Protocol Haloperidol Lactate 1 mg 12/25/24 09:39 12/25/24 20:49 Haloperidol Lactate 5 Mg/Ml Vial IM 1 mg Q6H PRN Administration Agitation Heparin Sodium (Porcine) 5,000 units 12/18/24 09:00 12/26/24 09:28 Heparin Sodium 5,000 Units/Ml Vial SUB-Q 5,000 units Q12HR REGINA Administration Dextrose 1,000 mls @ 100 mls/hr 12/17/24 22:39 Dextrose 5% 1,000 Ml IVPB PRN PRN Hypoglycemia Protocol Albumin Human 50 mls @ 999 mls/hr 12/22/24 05:43 Albutein IVPB 01/21/25 05:42 Q10M PRN HYPOTENSION Ceftriaxone Sodium 1 gm in 50 mls @ 100 mls/hr 12/26/24 09:00 12/26/24 09:51 Rocephin 1 Gm/Ns 50 Ml IVPB 100 mls/hr Q24H REGINA Administration Insulin Aspart 2 - 5 units 12/18/24 11:30 12/26/24 08:17 Insulin Aspart (*Bkc) 100 Units/Ml SUB-Q Not Given ACHS [facility] Protocol Levothyroxine Sodium 250 mcg 12/21/24 06:30 12/25/24 05:05 Levothyroxine Sodium 125 Mcg Tablet PO 250 mcg [id number] REGINA Administration Levothyroxine Sodium 125 mcg 12/26/24 06:30 12/26/24 08:18 Levothyroxine Sodium 125 Mcg Tablet PO Not Given [email or web address]@[id number] REGINA Lorazepam 1 mg 12/25/24 09:39 12/26/24 09:27 Lorazepam Inj (*Crx) 2 Mg/Ml Vial IV PUSH 1 mg Q4H PRN Administration Anxiety/agitation/procedures Metoprolol Succinate 50 mg 12/18/24 09:00 12/19/24 09:01 Metoprolol Succinate Ext Rel 50 Mg Tabcr PO 50 mg DAILY REGINA Administration Metoprolol Tartrate 25 mg 12/23/24 14:00 12/26/24 05:55 Metoprolol Tartrate 25 Mg Tablet PO Not Given Q8HR REGINA Nicotine 1 patch 12/17/24 22:45 12/26/24 09:28 Nicotine (*Pbkc) 21 Mg Patch TRANSDERM 1 patch DAILY REGINA Administration Ondansetron HCl 4 mg 12/17/24 16:18 12/19/24 21:24 Ondansetron Inj 4 Mg/2 Ml Vial IV PUSH 4 mg Q4H PRN Administration Nausea Oxycodone HCl 5 mg 12/22/24 09:12 12/25/24 01:06 Oxycodone Hcl (*Crx) 5 Mg Tab Ir PO 5 mg Q4H PRN Administration Pain Rated 7-10 Sacubitril/Valsartan 1 tab 12/17/24 21:00 12/18/24 08:25 Sacubitril/Valsartan 24-26 Mg Tablet PO 1 tab Q12HR REGINA Administration Sertraline HCl 100 mg 12/18/24 09:00 12/26/24 09:52 Sertraline Hcl 50 Mg Tablet PO Not Given DAILY REGINA Radiology Results: ITS Impressions Lumbar Spine X-Ray 12/17/24 15:44 IMPRESSION: Anterior loss of volume of L1 which is most likely chronic. MRI evaluation advised. Otherwise, No acute osseous abnormality lumbar spine. Degenerative disc disease at the level of L4-L5. Venous Doppler Study 12/18/24 13:13 IMPRESSION: 1. No deep venous thrombosis. Abdomen Ultrasound 12/18/24 13:18 IMPRESSION: 1. Cholelithiasis. No evidence of acute cholecystitis. 2. Mildly dilated common duct. Renal Ultrasound 12/18/24 13:21 IMPRESSION: 1. Normal kidney sizes. No hydronephrosis. Lumbar Spine MRI 12/18/24 15:23 IMPRESSION: Limited examination secondary to motion artifact. No abnormal signal intensity or contrast enhancement is identified within the vertebral body of L1 to suggest acute traumatic injury. Within the visualized intervertebral disc spaces, moderate degenerative disease is noted, as detailed above. Duplex Scan Lower Extremity Artery 12/18/24 21:35 IMPRESSION: Abnormal peak systolic velocity and waveform morphology suggesting a popliteal or tibioperoneal trunk stenosis. Three-vessel blood flow into the right calf with single vessel blood flow into the right foot (on the submitted images) MRCP 12/21/24 08:48 IMPRESSION: 1. Study terminated at patient request prior to obtaining the normal complement of sequences including the MRCP images and which along with some motion artifact on the obtained sequences moderately limits evaluation. 2. Anasarca with small left and moderate-sized right pleural effusions, small amount of ascites and extensive body wall, as enteric and retroperitoneal edema. 3. Normal-appearing gallbladder with no evident cholelithiasis and with no intra or extrahepatic biliary ductal dilation. Sensitivity for tiny gallstones which were suggested on prior ultrasound is limited by motion artifact. 4. Cardiomegaly. Liver Biopsy Ultrasound 12/22/24 10:51 IMPRESSION: 1. Successful Ultrasound-guided random liver biopsy. Renal Biopsy Ultrasound 12/23/24 10:32 IMPRESSION: 1. Ultrasound-guided random left kidney core needle biopsy. Chest X-Ray 12/25/24 13:40 IMPRESSION: 1. Small left and small to moderate-sized right pleural effusion with associated bibasilar atelectasis and/or pneumonia. 2. Cardiomegaly. Head CT 12/25/24 17:06 IMPRESSION: No acute intracranial process. Labs Labs: Laboratory Results - last 24 hr 12/25/24 12/25/24 12/25/24 14:36 15:04 16:35 WBC RBC Hgb Hct MCV MCH MCHC RDW Plt Count MPV Puncture Site Left brachial ABG pH 7.335 L ABG pCO2 42.7 ABG pO2 58.1 L ABG PO2/FiO2 Ratio 2.77 ABG HCO3 22.3 ABG O2 Saturation 88.5 L ABG O2 Content 13.7 L ABG Base Excess -3.4 A-a Gradient 40.5 Oxyhemoglobin 85.6 L* Total Hemoglobin 11.4 L O2 Delivery Device Room air O2 Liters/Min Not Reportable FiO2 21 Sodium Potassium Chloride Carbon Dioxide Anion Gap BUN Creatinine Estim Creat Clear Calc Estimated GFR Glucose POC Capillary Glucose 111 H Lactic Acid 1.5 Calcium Phosphorus Magnesium Total Bilirubin AST ALT Alkaline Phosphatase Ammonia < 9 L Total Protein Albumin Urine Color Urine Appearance Urine pH Ur Specific [place] Urine Protein Urine Glucose (UA) Urine Ketones Ur Blood (Man) Urine Nitrate Urine Bilirubin Urine Urobilinogen Add Ur Microanalysis Leukocyte Esterase Rfl Urine RBC Urine WBC Ur Squamous Epith Cells Urine Bacteria Urine Casts Hyaline Casts 12/25/24 12/25/24 12/26/24 20:53 21:07 05:41 WBC 9.8 RBC 4.51 L Hgb 11.2 L Hct 39.2 L MCV 86.9 MCH 24.8 L MCHC 28.6 L RDW 19.2 H Plt Count 181 MPV 10.0 Puncture Site ABG pH ABG pCO2 ABG pO2 ABG PO2/FiO2 Ratio ABG HCO3 ABG O2 Saturation ABG O2 Content ABG Base Excess A-a Gradient Oxyhemoglobin Total Hemoglobin O2 Delivery Device O2 Liters/Min FiO2 Sodium 135 L Potassium 4.1 Chloride 102 Carbon Dioxide 24 Anion Gap 9 BUN 44 H Creatinine 3.37 H Estim Creat Clear Calc 27 Estimated GFR 19 L Glucose 93 POC Capillary Glucose 105 Lactic Acid Calcium 7.7 L Phosphorus 4.9 H Magnesium 1.8 Total Bilirubin 0.9 AST 84 H ALT 286 H Alkaline Phosphatase 248 H Ammonia Total Protein 6.0 L Albumin 2.7 L Urine Color Dark yellow Urine Appearance Cloudy H Urine pH 5.0 Ur Specific [place] 1.017 Urine Protein 3+ H Urine Glucose (UA) Trace H Urine Ketones Trace H Ur Blood (Man) 3+ H Urine Nitrate Negative Urine Bilirubin 1+ H Urine Urobilinogen 1.0 Add Ur Microanalysis Reviewed Leukocyte Esterase Rfl 1+ H Urine RBC 21-50 H Urine WBC 11-20 H Ur Squamous Epith Cells Occasional Urine Bacteria None seen Urine Casts >20 Hyaline Casts Present 12/26/24 12/26/24 08:20 11:43 WBC RBC Hgb Hct MCV MCH MCHC RDW Plt Count MPV Puncture Site ABG pH ABG pCO2 ABG pO2 ABG PO2/FiO2 Ratio ABG HCO3 ABG O2 Saturation ABG O2 Content ABG Base Excess A-a Gradient Oxyhemoglobin Total Hemoglobin O2 Delivery Device O2 Liters/Min FiO2 Sodium Potassium Chloride Carbon Dioxide Anion Gap BUN Creatinine Estim Creat Clear Calc Estimated GFR Glucose POC Capillary Glucose 107 H 111 H Lactic Acid Calcium Phosphorus Magnesium Total Bilirubin AST ALT Alkaline Phosphatase Ammonia Total Protein Albumin Urine Color Urine Appearance Urine pH Ur Specific [place] Urine Protein Urine Glucose (UA) Urine Ketones Ur Blood (Man) Urine Nitrate Urine Bilirubin Urine Urobilinogen Add Ur Microanalysis Leukocyte Esterase Rfl Urine RBC Urine WBC Ur Squamous Epith Cells Urine Bacteria Urine Casts Hyaline Casts
--- NOTE | 2024-12-26 12:59 | PM.IMPN ---
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 iv ativan prn. haldol prn labs stable or unremarkable. Ammonia negative ABG unremarkable CT head unremarkable UA +/-started empirically on ceftriaxone Continue to follow culture Supportive treatment with Ativan/Haldol p.r.n. # Transaminitis: On admission, AST 215 and ALT 201. AP 340 with normal bili. Levels normal earlier this month. Hepatitis panel negative. Abd US showing cholelithiasis and mildly dilated CBD. Liver is normal in appearance. lipitor held. Repeat levels on 12/20 much worse with AST 1539, ALT 1066, AP 479, normal bili. Repeated CMP showed liver enzymes are trending down Lactic acid 1.1. Acet level <10 Possible due to congestion due to heart failure Consider autoimmune with + IV fluids stopped. GI consulted and appreciate their input. AST better. Unable to get MRCP Status post liver biopsy 12/22/2024 colon pathology with congestive hepatopathy hepatic fibrosis score 1. # Acute on chronic kidney failure: Patient presents with weakness and may have underlying PNA. Cr on admission 4.3. Baseline Cr 2.1-2.9 range. He was started on IV fluids. Urine eos negative. Eve 42. Total CK 371. Urine prot/Cr 4.7gm consistent with nephrotic syndrome. Complement normal. Hx of + 1:640. Renal US normal. Nephrology consulted and appreciate their input. Cryoglobulin pending. Phos 6.5. Creatinine is trending up, Phos remains elevated. HD catheter placement 12/22/2024 He has been started on hemodialysis. Status post renal biopsy 12/23/2024: Renal biopsy pending # Pneumonia: Patient presents with weakness after having cold and cough symptoms for 3 weeks. No benefit after 2 Z-packs. CXR showing bibasilar infiltrates. No fevers or hypoxia. WBC 12K. He was started on Rocephin and Doxycycline. WBC normal now. BCx NGTD. MRSA screen negative. Urine Ag pending. Sputum Cx growing MSSA and yeast. Abx to complete a 7 day course. #Heart failure with reduced ejection fraction: Echo showing severely reduced systolic fxn with EF 25-30% with diastolic dysfunction, mild valve disease and moderate pulmonary HTN. BNP >30K. CXR showing CMG, bibasilar infiltrates and small pleural effusions. Entresto and finerenone on hold. Diuretics not listed on home med list. Eve 42 so suspect good renal perfusion. Hold Toprol XL. Monitor UOP, renal fxn, daily weights and fluid balance Hold Entresto because of worsening kidney function # Diabetes mellitus type 2 with complications: A1c 7%. The patient's blood glucose was reviewed Patient was on an insulin pump at home. Concern patient was unable to handle his pump here so this was held. Glucose remains well controlled off the insulin pump. He is eating some Continue AccuCheks covering with sliding scale. Hypoglycemia protocol available as needed. Continue to monitor # new onset atrial fibrillation. On metoprolol. Eliquis when able currently not able # nonobstructive coronary artery disease per L at C 02/2024. On aspirin. Statin on hold due to elevated liver enzymes. # Peripheral vascular disease: Patient with known PAD. Venous doppler RLE negative for DVT. Arterial doppler RLE suggestive of a popliteal or tibioperoneal trunk stenosis. There is three-vessel blood flow into the right calf with single vessel blood flow into the right foot. Continue Zetia and ASA. Resume Lipitor when able. # Hypothyroidism: Review of Endocrine note from 11/12 showing he was to skip the Friday Synthroid dose. TSH is 46.4. Free T4 is low-normal at 0.96. Total T3 is 0.5. Patient is on 250 mcg daily of Synthroid. Suspect the skipped dose has resulted in the change in his thyroid panel. Will adjust to 250mcg daily except 125mcg on Sundays. # Tobacco dependence: Patient was educated about the benefits of smoking cessation # urinary retention status post cystoscopy with passive dilation of mild bulbar narrowing. Complex Hernandez catheter placement with 16 Armenian coude on 12/20/2024. Maintain Hernandez catheter until improvement in volume status and mobility. # Low back pain - Lumbar MRI performed but no acute finding seen on limited imaging due to motion artifact. # DVT prophylaxis - Heparin # Code status - full Subjective Date/time seen: 12/26/24 12:59 Interval history: Patient continues to be confused. A bit more conversant today. Family at bedside. Review of Systems Review of Systems: All systems reviewed & are unremarkable except as noted in HPI and below Exam Narrative: GENERAL: Ill-appearing, in no acute distress. Well-nourished. Confusion on restraints - EYES: EOMI. Anicteric. - HENT: Moist mucous membranes. - LUNGS: Coarse breath sound bilaterally - CARDIOVASCULAR: Regular rate and rhythm. No murmur. No JVD. - ABDOMEN: Soft, non-tender and non-distended. No palpable masses. ; Hernandez catheter in-situ, scrotum swelling is improved - EXTREMITIES: No edema. Left above knee amputation - NEUROLOGIC: No focal neurological deficits. CN II-XII grossly intact. - PSYCHIATRIC: Awake, confusion oriented to place and person - SKIN: No rashes or lesions. Warm. - LYMPH: No cervical lymphadenopathy. Objective Data Vital Signs Vital Signs: Vital Signs - 24 hr 12/25/24 14:00 12/25/24 20:00 12/25/24 20:49 Temperature 97.2 F L 98.2 F Pulse Rate 100 118 H 118 H Respiratory Rate 14 16 16 Blood Pressure 100/72 121/84 Pulse Oximetry 97 97 97 Oxygen Delivery Room Air 12/26/24 06:32 12/26/24 08:00 Temperature Pulse Rate 70 Respiratory Rate 18 Blood Pressure 119/81 Pulse Oximetry 94 Oxygen Delivery Room Air Intake/Output Intake/Output: Intake & Output 12/23/24 12/24/24 12/25/24 12/26/24 23:59 23:59 23:59 23:59 Intake Total 540 1589 207 9965 Output Total 3750 3200 300 100 Balance -3210 -0337 501 0186 Meds/Results Medications: Active Medications Generic Name Dose Route Start Last Admin Trade Name Freq PRN Reason Stop Dose Admin Acetaminophen 650 mg 12/17/24 16:18 12/18/24 20:54 Acetaminophen 325 Mg Tablet PO 650 mg Q4H PRN Administration Mild Pain (1-3) or Fever Hydrocodone Bitart/Acetaminophen 1 tab 12/17/24 19:37 12/19/24 15:50 Hydrocodone/Acetaminophen (*Crx) 5-325 Mg Tablet PO 1 tab Q8H PRN Administration pain 4-6 Aspirin 81 mg 12/20/24 08:00 12/26/24 09:52 Aspirin 81 Mg Chewable Tablet PO Not Given DAILY@0800 REGINA Calcium Carbonate 200 mg 12/18/24 22:39 Calcium Carbonate (Tums) 500 Mg (200 Mg Elemental) PO Q6H PRN Indigestion Dextrose 12.5 gm 12/17/24 22:39 Dextrose 50% 25 Gm/50 Ml Syringe IV PUSH PRN PRN Hypoglycemia Protocol Diphenhydramine HCl 12.5 mg 12/18/24 14:23 12/24/24 19:41 Diphenhydramine Hcl Elixir 12.5 Mg/5 Ml Udc PO 12.5 mg Q6H PRN Administration Itching Docusate Sodium 100 mg 12/23/24 21:00 12/26/24 09:52 Docusate Sodium 100 Mg Capsule PO Not Given Q12HR [facility] Ezetimibe 10 mg 12/18/24 09:00 12/26/24 09:52 Ezetimibe 10 Mg Tablet PO Not Given DAILY REGINA Glucagon 1 mg 12/17/24 22:39 Glucagon For Inj 1 Mg Vial IM PRN PRN Hypoglycemia Protocol Glucose 15 gm 12/17/24 22:39 Glucose Oral Gel 15 Gm Of Glucse In 37.5 Gm Tube PO PRN PRN Hypoglycemia Protocol Haloperidol Lactate 1 mg 12/25/24 09:39 12/25/24 20:49 Haloperidol Lactate 5 Mg/Ml Vial IM 1 mg Q6H PRN Administration Agitation Heparin Sodium (Porcine) 5,000 units 12/18/24 09:00 12/26/24 09:28 Heparin Sodium 5,000 Units/Ml Vial SUB-Q 5,000 units Q12HR REGINA Administration Dextrose 1,000 mls @ 100 mls/hr 12/17/24 22:39 Dextrose 5% 1,000 Ml IVPB PRN PRN Hypoglycemia Protocol Albumin Human 50 mls @ 999 mls/hr 12/22/24 05:43 Albutein IVPB 01/21/25 05:42 Q10M PRN HYPOTENSION Ceftriaxone Sodium 1 gm in 50 mls @ 100 mls/hr 12/26/24 09:00 12/26/24 09:51 Rocephin 1 Gm/Ns 50 Ml IVPB 100 mls/hr Q24H REGINA Administration Insulin Aspart 2 - 5 units 12/18/24 11:30 12/26/24 08:17 Insulin Aspart (*Bkc) 100 Units/Ml SUB-Q Not Given ACHS [facility] Protocol Levothyroxine Sodium 250 mcg 12/21/24 06:30 12/25/24 05:05 Levothyroxine Sodium 125 Mcg Tablet PO 250 mcg [id number] REGINA Administration Levothyroxine Sodium 125 mcg 12/26/24 06:30 12/26/24 08:18 Levothyroxine Sodium 125 Mcg Tablet PO Not Given Mitchell@0630 [facility] Lorazepam 1 mg 12/25/24 09:39 12/26/24 09:27 Lorazepam Inj (*Crx) 2 Mg/Ml Vial IV PUSH 1 mg Q4H PRN Administration Anxiety/agitation/procedures Metoprolol Succinate 50 mg 12/18/24 09:00 12/19/24 09:01 Metoprolol Succinate Ext Rel 50 Mg Tabcr PO 50 mg DAILY [facility] Administration Metoprolol Tartrate 25 mg 12/23/24 14:00 12/26/24 05:55 Metoprolol Tartrate 25 Mg Tablet PO Not Given Q8HR [facility] Nicotine 1 patch 12/17/24 22:45 12/26/24 09:28 Nicotine (*Pbkc) 21 Mg Patch TRANSDERM 1 patch DAILY REGINA Administration Ondansetron HCl 4 mg 12/17/24 16:18 12/19/24 21:24 Ondansetron Inj 4 Mg/2 Ml Vial IV PUSH 4 mg Q4H PRN Administration Nausea Oxycodone HCl 5 mg 12/22/24 09:12 12/25/24 01:06 Oxycodone Hcl (*Crx) 5 Mg Tab Ir PO 5 mg Q4H PRN Administration Pain Rated 7-10 Sacubitril/Valsartan 1 tab 12/17/24 21:00 12/18/24 08:25 Sacubitril/Valsartan 24-26 Mg Tablet PO 1 tab Q12HR REGINA Administration Sertraline HCl 100 mg 12/18/24 09:00 12/26/24 09:52 Sertraline Hcl 50 Mg Tablet PO Not Given DAILY REGINA Radiology Results: ITS Impressions Lumbar Spine X-Ray 12/17/24 15:44 IMPRESSION: Anterior loss of volume of L1 which is most likely chronic. MRI evaluation advised. Otherwise, No acute osseous abnormality lumbar spine. Degenerative disc disease at the level of L4-L5. Venous Doppler Study 12/18/24 13:13 IMPRESSION: 1. No deep venous thrombosis. Abdomen Ultrasound 12/18/24 13:18 IMPRESSION: 1. Cholelithiasis. No evidence of acute cholecystitis. 2. Mildly dilated common duct. Renal Ultrasound 12/18/24 13:21 IMPRESSION: 1. Normal kidney sizes. No hydronephrosis. Lumbar Spine MRI 12/18/24 15:23 IMPRESSION: Limited examination secondary to motion artifact. No abnormal signal intensity or contrast enhancement is identified within the vertebral body of L1 to suggest acute traumatic injury. Within the visualized intervertebral disc spaces, moderate degenerative disease is noted, as detailed above. Duplex Scan Lower Extremity Artery 12/18/24 21:35 IMPRESSION: Abnormal peak systolic velocity and waveform morphology suggesting a popliteal or tibioperoneal trunk stenosis. Three-vessel blood flow into the right calf with single vessel blood flow into the right foot (on the submitted images) MRCP 12/21/24 08:48 IMPRESSION: 1. Study terminated at patient request prior to obtaining the normal complement of sequences including the MRCP images and which along with some motion artifact on the obtained sequences moderately limits evaluation. 2. Anasarca with small left and moderate-sized right pleural effusions, small amount of ascites and extensive body wall, as enteric and retroperitoneal edema. 3. Normal-appearing gallbladder with no evident cholelithiasis and with no intra or extrahepatic biliary ductal dilation. Sensitivity for tiny gallstones which were suggested on prior ultrasound is limited by motion artifact. 4. Cardiomegaly. Liver Biopsy Ultrasound 12/22/24 10:51 IMPRESSION: 1. Successful Ultrasound-guided random liver biopsy. Renal Biopsy Ultrasound 12/23/24 10:32 IMPRESSION: 1. Ultrasound-guided random left kidney core needle biopsy. Chest X-Ray 12/25/24 13:40 IMPRESSION: 1. Small left and small to moderate-sized right pleural effusion with associated bibasilar atelectasis and/or pneumonia. 2. Cardiomegaly. Head CT 12/25/24 17:06 IMPRESSION: No acute intracranial process. Labs Labs: Laboratory Results - last 24 hr 12/25/24 12/25/24 12/25/24 14:36 15:04 16:35 WBC RBC Hgb Hct MCV MCH MCHC RDW Plt Count MPV Puncture Site Left brachial ABG pH 7.335 L ABG pCO2 42.7 ABG pO2 58.1 L ABG PO2/FiO2 Ratio 2.77 ABG HCO3 22.3 ABG O2 Saturation 88.5 L ABG O2 Content 13.7 L ABG Base Excess -3.4 A-a Gradient 40.5 Oxyhemoglobin 85.6 L* Total Hemoglobin 11.4 L O2 Delivery Device Room air O2 Liters/Min Not Reportable FiO2 21 Sodium Potassium Chloride Carbon Dioxide Anion Gap BUN Creatinine Estim Creat Clear Calc Estimated GFR Glucose POC Capillary Glucose 111 H Lactic Acid 1.5 Calcium Phosphorus Magnesium Total Bilirubin AST ALT Alkaline Phosphatase Ammonia < 9 L Total Protein Albumin Urine Color Urine Appearance Urine pH Ur Specific [place] Urine Protein Urine Glucose (UA) Urine Ketones Ur Blood (Man) Urine Nitrate Urine Bilirubin Urine Urobilinogen Add Ur Microanalysis Leukocyte Esterase Rfl Urine RBC Urine WBC Ur Squamous Epith Cells Urine Bacteria Urine Casts Hyaline Casts 12/25/24 12/25/24 12/26/24 20:53 21:07 05:41 WBC 9.8 RBC 4.51 L Hgb 11.2 L Hct 39.2 L MCV 86.9 MCH 24.8 L MCHC 28.6 L RDW 19.2 H Plt Count 181 MPV 10.0 Puncture Site ABG pH ABG pCO2 ABG pO2 ABG PO2/FiO2 Ratio ABG HCO3 ABG O2 Saturation ABG O2 Content ABG Base Excess A-a Gradient Oxyhemoglobin Total Hemoglobin O2 Delivery Device O2 Liters/Min FiO2 Sodium 135 L Potassium 4.1 Chloride 102 Carbon Dioxide 24 Anion Gap 9 BUN 44 H Creatinine 3.37 H Estim Creat Clear Calc 27 Estimated GFR 19 L Glucose 93 POC Capillary Glucose 105 Lactic Acid Calcium 7.7 L Phosphorus 4.9 H Magnesium 1.8 Total Bilirubin 0.9 AST 84 H ALT 286 H Alkaline Phosphatase 248 H Ammonia Total Protein 6.0 L Albumin 2.7 L Urine Color Dark yellow Urine Appearance Cloudy H Urine pH 5.0 Ur Specific [place] 1.017 Urine Protein 3+ H Urine Glucose (UA) Trace H Urine Ketones Trace H Ur Blood (Man) 3+ H Urine Nitrate Negative Urine Bilirubin 1+ H Urine Urobilinogen 1.0 Add Ur Microanalysis Reviewed Leukocyte Esterase Rfl 1+ H Urine RBC 21-50 H Urine WBC 11-20 H Ur Squamous Epith Cells Occasional Urine Bacteria None seen Urine Casts >20 Hyaline Casts Present 12/26/24 12/26/24 08:20 11:43 WBC RBC Hgb Hct MCV MCH MCHC RDW Plt Count MPV Puncture Site ABG pH ABG pCO2 ABG pO2 ABG PO2/FiO2 Ratio ABG HCO3 ABG O2 Saturation ABG O2 Content ABG Base Excess A-a Gradient Oxyhemoglobin Total Hemoglobin O2 Delivery Device O2 Liters/Min FiO2 Sodium Potassium Chloride Carbon Dioxide Anion Gap BUN Creatinine Estim Creat Clear Calc Estimated GFR Glucose POC Capillary Glucose 107 H 111 H Lactic Acid Calcium Phosphorus Magnesium Total Bilirubin AST ALT Alkaline Phosphatase Ammonia Total Protein Albumin Urine Color Urine Appearance Urine pH Ur Specific [place] Urine Protein Urine Glucose (UA) Urine Ketones Ur Blood (Man) Urine Nitrate Urine Bilirubin Urine Urobilinogen Add Ur Microanalysis Leukocyte Esterase Rfl Urine RBC Urine WBC Ur Squamous Epith Cells Urine Bacteria Urine Casts Hyaline Casts
[2024-12-26 15:40] VITALS: BP 116/81; PULSE 120; RESP 18; TEMP 36.2; O2SAT 99
[2024-12-26 17:15] LABS: Glucose Point of Care 159 mg/dl (65-105)
[2024-12-26 20:00] VITALS: PULSE 120; RESP 18; O2SAT 99
[2024-12-26] MEDS: HALOPERIDOL LACTATE 5 MG/ML VIAL 1 MG IM (20:49)
[2024-12-26 21:44] LABS: Cryoglobulin, QL Negative (Negative)
[2024-12-26 21:46] LABS: Glucose Point of Care 144 mg/dl (65-105)
[2024-12-26 22:00] VITALS: BP 122/95; PULSE 122; RESP 18; TEMP 36.4; O2SAT 95
[2024-12-27] VITALS (25 sets, daily range): BP systolic 111–166; BP diastolic 74–123; PULSE 76–131; RESP 16–20; TEMP 36.4–37.2; O2SAT 96–100
[2024-12-27] MEDS: LORazepam INJ (*CRX) 2 MG/ML VIAL 1 MG IV PUSH ×2 (01:09→06:03)
[2024-12-27 06:03] LABS: Basophils Absolute Auto 0.1 K/mm3 (0.0-0.1); Basophils Percent Auto 0.6 % (0.2-1.2); Eosinophils Absolute Auto 0.4 K/mm3 (0-0.3); Eosinophils Percent Auto 4.8 % (0-4.4); Hematocrit 39.5 % (42.0-52.0); Hemoglobin 11.4 g/dL (14.0-18.0); Immature Granulocyte Absolute 0.05 K/mm3 (0.00-0.031); Immature Granulocyte Percent A 0.6 % (0-0.5); Lymphocytes Absolute Auto 1.84 K/mm3 (0.9-3.2); Lymphocytes Percent Auto 21.3 % (18.3-44.2); Mean Corpuscular HGB Conc 28.9 g/dl (32-36); Mean Corpuscular Hemoglobin 24.8 pg (26-34); Mean Corpuscular Volume 86.1 fl (80-100); Mean Platelet Volume 9.6 fl (7.4-10.4); Monocytes Absolute Auto 0.6 K/mm3 (0.1-0.6); Monocytes Percent Auto 6.7 % (2.6-8.5); Neutrophils Absolute Auto 5.7 K/mm3 (1.3-6.7); Nucleated Red Blood Cells Perc 0.2 % (0.0-0.2); Platelet Count Result 177 k/mm3 (150-375); Red Blood Count 4.59 M/mm3 (4.6-6.20); Red Cell Distribution Width 19.4 % (11.5-14.5); White Blood Count 8.6 K/mm3 (4.5-10.0)
[2024-12-27 06:14] LABS: Alanine Aminotransferase 217 U/L (6-50); Albumin Level 2.5 g/dL (3.5-5.1); Alkaline Phosphatase 218 U/L (38-126); Anion Gap 9 mmol/L (4-12); Aspartate Amino Transferase 56 U/L (17-59); Bilirubin,Total 0.8 mg/dL (0.2-1.3); Blood Urea Nitrogen 48 mg/dL (9-20); Calcium 7.7 mg/dL (8.4-10.2); Carbon Dioxide 22 mmol/L (22-30); Chloride 103 mmol/L (98-107); Estimated CRCL calculation 28 ml/min; Estimated Glomerular Filt Rate 20; Glucose 125 mg/dL (65-110); Magnesium 1.9 mg/dL (1.6-2.3); Potassium 3.8 mmol/L (3.4-5.0); Sodium 134 mmol/L (137-145)
[2024-12-27 06:49] LABS: Anisocytosis 1+; Hypochromasia 1+; Platelet Estimate Slightly Decreased (Adequate); Schistocytes None Seen
[2024-12-27 08:28] LABS: Glucose Point of Care 120 mg/dl (65-105)
--- NOTE | 2024-12-27 11:00 | P.PNNP_ITS ---
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 * s/p renal biopsy on 12/22 with findings noted: * diabetic nephropathy * significant interstitial fibrosis/tubular atrophy noted as well * fluctuating urine output noted * however, BUN + creatinine continue to rise without dialytic support * HD today (2) Stage 3b chronic kidney disease: Code(s): N18.32 - Chronic kidney disease, stage 3b Status: Chronic Assessment and Plan: * baseline creatinine runs around 1.7 - 2.3mg/dl * secondary to diabetes (as noted by renal biopsy) and hypertension (3) Pneumonia: Code(s): J18.9 - Pneumonia, unspecified organism Status: Acute Assessment and Plan: * admission CXR with bibasilar infiltrates * completed course of antibiotics * respiratory status stable (4) Heart failure with mildly reduced ejection fraction: Code(s): I50.22 - Chronic systolic (congestive) heart failure Status: Acute Assessment and Plan: * known history * repeat Echo (12/18) noted: * severely reduced systolic function with EF 25-30% * diastolic dysfunction * mild valvular disease * moderate pulmonary hypertension * CXR with cardiomegaly, bibasilar infiltrates and small pleural effusions * Entresto and diuretics on hold given #1 * removing fluid with dialysis * not opposed to re-start entresto if necessary * Cardiology following (5) Encephalopathy: Code(s): G93.40 - Encephalopathy, unspecified Status: Acute Assessment and Plan: * still with intermittent confusion * doubt uremia playing a role given improvement in BUN * testing to date noted: * ammonia level is okay * B12 and folate are okay * WBC okay and no fevers so unlikely to be related to infection * aodium good * magnesium and calcium stable * CT of brain normal * ABGs reasonable * Neurology consulted (6) Atrial flutter with rapid ventricular response: Code(s): I48.92 - Unspecified atrial flutter Status: Acute Assessment and Plan: * rate control strategy * on heparin gtt for anticoagulation (7) Transaminitis: Code(s): R74.01 - Elevation of levels of liver transaminase levels Status: Deleted Assessment and Plan: * normal earlier in November 2024 * hepatitis panel negative * abd US showing cholelithiasis and mildly dilated CBD; liver is normal in appearance * holding statin * liver biopsy results noted * improving (8) Anemia: Code(s): D64.9 - Anemia, unspecified Status: Acute Assessment and Plan: * related to ELEANOR, CKD, and acute illness * Epogen with HD as needed * follow trend of H/H (9) Peripheral vascular disease: Code(s): I73.9 - Peripheral vascular disease, unspecified Status: Acute Assessment and Plan: * known history * on zetia but statin on hold given elevated LFTs * complicated by ongoing smoking * arterial dopplers noted (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 L Subjective Date/time seen: 12/27/24 11:00 Interval history: Follow-up for acute kidney injury/acute renal failure on chronic kidney disease. Chart reviewed since last seen -- tolerating dialysis treatment at the time of my visit (seen on HD at 10:50AM); still intermittently confused but able to answer simple questions; ongoing need for soft restraints to protect patient from pulling at lines and tubing; poor oral intake noted as well. Exam 2 Narrative: General: elderly male in NAD but confused Heart: tachycardic; normal S1 and S2; no rub Lungs: coarse breath sounds Abdomen: obese but soft, nontender, nondistended, positive bowel sounds Extremities: no cyanosis or clubbing; 1+ edema in RLE; s/p left AKA Skin: warm and dry Objective Data Vital Signs Vital Signs: Vital Signs Temp Pulse Resp BP Pulse Ox O2 Del Method O2 Flow Rate 12/27/24 11:00 124 H 159/123 H 12/27/24 10:45 128 H 159/111 H 12/27/24 10:30 126 H 155/109 H 12/27/24 10:15 128 H 146/98 H 12/27/24 10:00 128 H 138/104 H 12/27/24 09:45 128 H 136/102 H 12/27/24 09:34 127 H 163/112 H 12/27/24 09:25 98.4 F 128 H 19 163/107 H 96 12/27/24 09:25 0 12/27/24 08:00 Room Air 12/27/24 06:00 97.5 F L 122 H 18 111/89 100 12/26/24 22:00 97.6 F 122 H 18 122/95 H 95 12/26/24 20:00 120 H 18 99 Room Air Intake/Output Intake/Output: Intake & Output 12/24/24 12/25/24 12/26/24 12/27/24 23:59 23:59 23:59 23:59 Intake Total 4319 106 8159 490 Output Total 3200 996 990 3324 Balance -5810 365 2749 -1310 Meds/Results Medications: Active Medications Generic Name Dose Route Start Last Admin Trade Name Freq PRN Reason Stop Dose Admin Acetaminophen 650 mg 12/17/24 16:18 12/18/24 20:54 Acetaminophen 325 Mg Tablet PO 650 mg Q4H PRN Administration Mild Pain (1-3) or Fever Hydrocodone Bitart/Acetaminophen 1 tab 12/17/24 19:37 12/19/24 15:50 Hydrocodone/Acetaminophen (*Crx) 5-325 Mg Tablet PO 1 tab Q8H PRN Administration pain 4-6 Aspirin 81 mg 12/20/24 08:00 12/27/24 11:47 Aspirin 81 Mg Chewable Tablet PO Not Given DAILY@0800 [facility] Calcium Carbonate 200 mg 12/18/24 22:39 Calcium Carbonate (Tums) 500 Mg (200 Mg Elemental) PO Q6H PRN Indigestion Dextrose 12.5 gm 12/17/24 22:39 Dextrose 50% 25 Gm/50 Ml Syringe IV PUSH PRN PRN Hypoglycemia Protocol Diphenhydramine HCl 12.5 mg 12/18/24 14:23 12/24/24 19:41 Diphenhydramine Hcl Elixir 12.5 Mg/5 Ml Udc PO 12.5 mg Q6H PRN Administration Itching Docusate Sodium 100 mg 12/23/24 21:00 12/27/24 11:47 Docusate Sodium 100 Mg Capsule PO Not Given Q12HR [facility] Ezetimibe 10 mg 12/18/24 09:00 12/27/24 11:47 Ezetimibe 10 Mg Tablet PO Not Given DAILY [facility] Glucagon 1 mg 12/17/24 22:39 Glucagon For Inj 1 Mg Vial IM PRN PRN Hypoglycemia Protocol Glucose 15 gm 12/17/24 22:39 Glucose Oral Gel 15 Gm Of Glucse In 37.5 Gm Tube PO PRN PRN Hypoglycemia Protocol Haloperidol Lactate 1 mg 12/25/24 09:39 12/26/24 20:49 Haloperidol Lactate 5 Mg/Ml Vial IM 1 mg Q6H PRN Administration pulling at lines Haloperidol Lactate 2 mg 12/27/24 18:32 Haloperidol Lactate 5 Mg/Ml Vial IM 12/27/24 18:33 ONCE ONE Heparin Sodium (Porcine) 7,500 units 12/27/24 14:06 Heparin Sodium 5,000 Units/Ml Vial IV PUSH PRN PRN aPTT less than 55 seconds Heparin Sodium (Porcine) 3,500 units 12/27/24 14:06 Heparin Sodium 5,000 Units/Ml Vial IV PUSH PRN PRN aPTT 55 - 70 seconds Dextrose 1,000 mls @ 100 mls/hr 12/17/24 22:39 Dextrose 5% 1,000 Ml IVPB PRN PRN Hypoglycemia Protocol Albumin Human 50 mls @ 999 mls/hr 12/22/24 05:43 Albutein IVPB 01/21/25 05:42 Q10M PRN HYPOTENSION Ceftriaxone Sodium 1 gm in 50 mls @ 100 mls/hr 12/27/24 12:00 12/27/24 14:21 Rocephin 1 Gm/Ns 50 Ml IVPB Infused Q24H [facility] Infusion Heparin Sodium/Dextrose 25,000 units in 250 mls @ 15 mls/hr 12/27/24 14:10 12/27/24 17:36 Heparin Sodium/D5w 100 Units/Ml IV CONT 1,500 units/hr .[id number] RE[facility] 15 mls/hr Administration Protocol 1,500 UNITS/HR Insulin Aspart 2 - 5 units 12/18/24 11:30 12/27/24 18:02 Insulin Aspart (*Bkc) 100 Units/Ml SUB-Q Not Given ACHS [facility] Protocol Levothyroxine Sodium 250 mcg 12/21/24 06:30 12/27/24 11:46 Levothyroxine Sodium 125 Mcg Tablet PO Not Given [email or web address] [facility] Levothyroxine Sodium 125 mcg 12/26/24 06:30 12/26/24 08:18 Levothyroxine Sodium 125 Mcg Tablet PO Not Given Mitchell@0630 [facility] Lorazepam 1 mg 12/25/24 09:39 12/27/24 06:03 Lorazepam Inj (*Crx) 2 Mg/Ml Vial IV PUSH 1 mg Q4H PRN Administration Anxiety/pulling lines/procedur Lorazepam 0.5 mg 12/27/24 18:28 Lorazepam Inj (*Crx) 2 Mg/Ml Vial IV PUSH Q6H PRN Anxiety Metoprolol Succinate 50 mg 12/18/24 09:00 12/19/24 09:01 Metoprolol Succinate Ext Rel 50 Mg Tabcr PO 50 mg DAILY [facility] Administration Metoprolol Tartrate 5 mg 12/27/24 08:35 12/27/24 17:34 Metoprolol Tartrate Inj 5 Mg/5 Ml Vial IV PUSH 5 mg Q8HR RE[facility]A Administration Metoprolol Tartrate 50 mg 12/27/24 14:00 12/27/24 16:29 Metoprolol Tartrate 50 Mg Tab PO Not Given Q8HR [facility] Nicotine 1 patch 12/17/24 22:45 12/27/24 13:57 Nicotine (*Pbkc) 21 Mg Patch TRANSDERM 1 patch DAILY [facility] Administration Ondansetron HCl 4 mg 12/17/24 16:18 12/19/24 21:24 Ondansetron Inj 4 Mg/2 Ml Vial IV PUSH 4 mg Q4H PRN Administration Nausea Oxycodone HCl 5 mg 12/22/24 09:12 12/25/24 01:06 Oxycodone Hcl (*Crx) 5 Mg Tab Ir PO 5 mg Q4H PRN Administration Pain Rated 7-10 Sacubitril/Valsartan 1 tab 12/17/24 21:00 12/18/24 08:25 Sacubitril/Valsartan 24-26 Mg Tablet PO 1 tab Q12HR [facility] Administration Sertraline HCl 100 mg 12/18/24 09:00 12/27/24 11:47 Sertraline Hcl 50 Mg Tablet PO Not Given DAILY [facility] Radiology Results: ITS Impressions Lumbar Spine X-Ray 12/17/24 15:44 IMPRESSION: Anterior loss of volume of L1 which is most likely chronic. MRI evaluation advised. Otherwise, No acute osseous abnormality lumbar spine. Degenerative disc disease at the level of L4-L5. Venous Doppler Study 12/18/24 13:13 IMPRESSION: 1. No deep venous thrombosis. Abdomen Ultrasound 12/18/24 13:18 IMPRESSION: 1. Cholelithiasis. No evidence of acute cholecystitis. 2. Mildly dilated common duct. Renal Ultrasound 12/18/24 13:21 IMPRESSION: 1. Normal kidney sizes. No hydronephrosis. Lumbar Spine MRI 12/18/24 15:23 IMPRESSION: Limited examination secondary to motion artifact. No abnormal signal intensity or contrast enhancement is identified within the vertebral body of L1 to suggest acute traumatic injury. Within the visualized intervertebral disc spaces, moderate degenerative disease is noted, as detailed above. Duplex Scan Lower Extremity Artery 12/18/24 21:35 IMPRESSION: Abnormal peak systolic velocity and waveform morphology suggesting a popliteal or tibioperoneal trunk stenosis. Three-vessel blood flow into the right calf with single vessel blood flow into the right foot (on the submitted images) MRCP 12/21/24 08:48 IMPRESSION: 1. Study terminated at patient request prior to obtaining the normal complement of sequences including the MRCP images and which along with some motion artifact on the obtained sequences moderately limits evaluation. 2. Anasarca with small left and moderate-sized right pleural effusions, small amount of ascites and extensive body wall, as enteric and retroperitoneal edema. 3. Normal-appearing gallbladder with no evident cholelithiasis and with no intra or extrahepatic biliary ductal dilation. Sensitivity for tiny gallstones which were suggested on prior ultrasound is limited by motion artifact. 4. Cardiomegaly. Liver Biopsy Ultrasound 12/22/24 10:51 IMPRESSION: 1. Successful Ultrasound-guided random liver biopsy. Renal Biopsy Ultrasound 12/23/24 10:32 IMPRESSION: 1. Ultrasound-guided random left kidney core needle biopsy. Chest X-Ray 12/25/24 13:40 IMPRESSION: 1. Small left and small to moderate-sized right pleural effusion with associated bibasilar atelectasis and/or pneumonia. 2. Cardiomegaly. Head CT 12/25/24 17:06 IMPRESSION: No acute intracranial process. Labs Labs: Laboratory Tests 12/27/24 05:43 12/27/24 05:43 Calcium 7.7 L Magnesium 1.9 Total Bilirubin 0.8 AST 56 ALT 217 H Alkaline Phosphatase 218 H Total Protein 5.0 L Albumin 2.5 L Microbiology 12/25/24 21:07 Urine [place] Urine Culture - Final
--- NOTE | 2024-12-27 11:00 | P.PNCA_ITS ---
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 and chronic tobacco dependence presented feeling weak Chronic systolic heart failure -at one point his left ventricular ejection fraction improved to 40% however it is back to its previous 20% -he appears euvolemic and compensated however unfortunately due to low blood pressure, he is no longer able to tolerate guideline directed medical therapy which could be indication of worsening disease -volume control through hemodialysis which is new for him during this hospitalization Paroxysmal atrial fibrillation -this is a new diagnosis for and given his degree elevated risk for stroke, would recommend Eliquis 5 mg p.o. b.i.d. when able to tolerate -increase metoprolol tartrate to 50 mg p.o. q.8 hours Hyperlipidemia -statins on hold due to transaminitis -continue Zetia 10 mg p.o. daily Subjective Date/time seen: 12/27/24 11:00 Interval history: Appears confused and currently on dialysis. Review of Systems Review of Systems: ROS unobtainable: Yes unobtainable due to medical condition Exam Const: Other: Ill-appearing HENMT: Mouth: Yes moist mucous membranes Eyes: EOM: EOMs intact bilaterally Neck: Neck: no JVD Resp: Effort & Inspection: normal respiratory effort Auscultation: clear to auscultation bilaterally Cardio: Rate: tachycardic Rhythm: abnormal rhythm GI: Inspection: distended GI Palp: Yes Soft to palpation Extrem: Other: Left AKA and right TMA Objective Data Vital Signs Vital Signs: Vital Signs - 24 hr 12/26/24 15:40 12/26/24 20:00 12/26/24 22:00 Temperature 36.2 C L 36.4 C Pulse Rate 120 H 120 H 122 H Respiratory Rate 18 18 18 Blood Pressure 116/81 122/95 H Pulse Oximetry 99 99 95 Oxygen Delivery Room Air 12/27/24 06:00 Temperature 36.4 C L Pulse Rate 122 H Respiratory Rate 18 Blood Pressure 111/89 Pulse Oximetry 100 Oxygen Delivery Intake/Output Intake/Output: Intake & Output 12/24/24 12/25/24 12/26/24 12/27/24 23:59 23:59 23:59 23:59 Intake Total 5441 840 0542 320 Output Total 3200 300 500 800 Balance -6732 516 1877 -480 Meds/Results Medications: Active Medications Generic Name Dose Route Start Last Admin Trade Name Freq PRN Reason Stop Dose Admin Acetaminophen 650 mg 12/17/24 16:18 12/18/24 20:54 Acetaminophen 325 Mg Tablet PO 650 mg Q4H PRN Administration Mild Pain (1-3) or Fever Hydrocodone Bitart/Acetaminophen 1 tab 12/17/24 19:37 12/19/24 15:50 Hydrocodone/Acetaminophen (*Crx) 5-325 Mg Tablet PO 1 tab Q8H PRN Administration pain 4-6 Aspirin 81 mg 12/20/24 08:00 12/26/24 09:52 Aspirin 81 Mg Chewable Tablet PO Not Given DAILY@0800 [facility] Calcium Carbonate 200 mg 12/18/24 22:39 Calcium Carbonate (Tums) 500 Mg (200 Mg Elemental) PO Q6H PRN Indigestion Dextrose 12.5 gm 12/17/24 22:39 Dextrose 50% 25 Gm/50 Ml Syringe IV PUSH PRN PRN Hypoglycemia Protocol Diphenhydramine HCl 12.5 mg 12/18/24 14:23 12/24/24 19:41 Diphenhydramine Hcl Elixir 12.5 Mg/5 Ml Udc PO 12.5 mg Q6H PRN Administration Itching Docusate Sodium 100 mg 12/23/24 21:00 12/26/24 20:58 Docusate Sodium 100 Mg Capsule PO Not Given Q12HR [facility] Ezetimibe 10 mg 12/18/24 09:00 12/26/24 09:52 Ezetimibe 10 Mg Tablet PO Not Given DAILY [facility] Glucagon 1 mg 12/17/24 22:39 Glucagon For Inj 1 Mg Vial IM PRN PRN Hypoglycemia Protocol Glucose 15 gm 12/17/24 22:39 Glucose Oral Gel 15 Gm Of Glucse In 37.5 Gm Tube PO PRN PRN Hypoglycemia Protocol Haloperidol Lactate 1 mg 12/25/24 09:39 12/26/24 20:49 Haloperidol Lactate 5 Mg/Ml Vial IM 1 mg Q6H PRN Administration Agitation Heparin Sodium (Porcine) 5,000 units 12/18/24 09:00 12/26/24 20:48 Heparin Sodium 5,000 Units/Ml Vial SUB-Q 5,000 units Q12HR REGINA Administration Dextrose 1,000 mls @ 100 mls/hr 12/17/24 22:39 Dextrose 5% 1,000 Ml IVPB PRN PRN Hypoglycemia Protocol Albumin Human 50 mls @ 999 mls/hr 12/22/24 05:43 Albutein IVPB 01/21/25 05:42 Q10M PRN HYPOTENSION Ceftriaxone Sodium 1 gm in 50 mls @ 100 mls/hr 12/27/24 12:00 Rocephin 1 Gm/Ns 50 Ml IVPB Q24H [facility] Insulin Aspart 2 - 5 units 12/18/24 11:30 12/27/24 08:20 Insulin Aspart (*Bkc) 100 Units/Ml SUB-Q Not Given ACHS [facility] Protocol Levothyroxine Sodium 250 mcg 12/21/24 06:30 12/25/24 05:05 Levothyroxine Sodium 125 Mcg Tablet PO 250 mcg [email or web address] [facility] Administration Levothyroxine Sodium 125 mcg 12/26/24 06:30 12/26/24 08:18 Levothyroxine Sodium 125 Mcg Tablet PO Not Given Mitchell@0630 [facility] Lorazepam 1 mg 12/25/24 09:39 12/27/24 06:03 Lorazepam Inj (*Crx) 2 Mg/Ml Vial IV PUSH 1 mg Q4H PRN Administration Anxiety/agitation/procedures Metoprolol Succinate 50 mg 12/18/24 09:00 12/19/24 09:01 Metoprolol Succinate Ext Rel 50 Mg Tabcr PO 50 mg DAILY [facility] Administration Metoprolol Tartrate 25 mg 12/23/24 14:00 12/27/24 06:03 Metoprolol Tartrate 25 Mg Tablet PO Not Given Q8HR [facility] Metoprolol Tartrate 5 mg 12/27/24 08:35 Metoprolol Tartrate Inj 5 Mg/5 Ml Vial IV PUSH Q8HR [facility] Nicotine 1 patch 12/17/24 22:45 12/26/24 09:28 Nicotine (*Pbkc) 21 Mg Patch TRANSDERM 1 patch DAILY [facility] Administration Ondansetron HCl 4 mg 12/17/24 16:18 12/19/24 21:24 Ondansetron Inj 4 Mg/2 Ml Vial IV PUSH 4 mg Q4H PRN Administration Nausea Oxycodone HCl 5 mg 12/22/24 09:12 12/25/24 01:06 Oxycodone Hcl (*Crx) 5 Mg Tab Ir PO 5 mg Q4H PRN Administration Pain Rated 7-10 Sacubitril/Valsartan 1 tab 12/17/24 21:00 12/18/24 08:25 Sacubitril/Valsartan 24-26 Mg Tablet PO 1 tab Q12HR [facility] Administration Sertraline HCl 100 mg 12/18/24 09:00 12/26/24 09:52 Sertraline Hcl 50 Mg Tablet PO Not Given DAILY [facility] Radiology Results: ITS Impressions Lumbar Spine X-Ray 12/17/24 15:44 IMPRESSION: Anterior loss of volume of L1 which is most likely chronic. MRI evaluation advised. Otherwise, No acute osseous abnormality lumbar spine. Degenerative disc disease at the level of L4-L5. Venous Doppler Study 12/18/24 13:13 IMPRESSION: 1. No deep venous thrombosis. Abdomen Ultrasound 12/18/24 13:18 IMPRESSION: 1. Cholelithiasis. No evidence of acute cholecystitis. 2. Mildly dilated common duct. Renal Ultrasound 12/18/24 13:21 IMPRESSION: 1. Normal kidney sizes. No hydronephrosis. Lumbar Spine MRI 12/18/24 15:23 IMPRESSION: Limited examination secondary to motion artifact. No abnormal signal intensity or contrast enhancement is identified within the vertebral body of L1 to suggest acute traumatic injury. Within the visualized intervertebral disc spaces, moderate degenerative disease is noted, as detailed above. Duplex Scan Lower Extremity Artery 12/18/24 21:35 IMPRESSION: Abnormal peak systolic velocity and waveform morphology suggesting a popliteal or tibioperoneal trunk stenosis. Three-vessel blood flow into the right calf with single vessel blood flow into the right foot (on the submitted images) MRCP 12/21/24 08:48 IMPRESSION: 1. Study terminated at patient request prior to obtaining the normal complement of sequences including the MRCP images and which along with some motion artifact on the obtained sequences moderately limits evaluation. 2. Anasarca with small left and moderate-sized right pleural effusions, small amount of ascites and extensive body wall, as enteric and retroperitoneal edema. 3. Normal-appearing gallbladder with no evident cholelithiasis and with no intra or extrahepatic biliary ductal dilation. Sensitivity for tiny gallstones which were suggested on prior ultrasound is limited by motion artifact. 4. Cardiomegaly. Liver Biopsy Ultrasound 12/22/24 10:51 IMPRESSION: 1. Successful Ultrasound-guided random liver biopsy. Renal Biopsy Ultrasound 12/23/24 10:32 IMPRESSION: 1. Ultrasound-guided random left kidney core needle biopsy. Chest X-Ray 12/25/24 13:40 IMPRESSION: 1. Small left and small to moderate-sized right pleural effusion with associated bibasilar atelectasis and/or pneumonia. 2. Cardiomegaly. Head CT 12/25/24 17:06 IMPRESSION: No acute intracranial process. Labs Labs: Laboratory Results - last 24 hr 12/20/24 12/26/24 12/26/24 05:56 11:43 17:06 WBC RBC Hgb Hct MCV MCH MCHC RDW Plt Count MPV Immature Gran % (Auto) Neut % (Auto) Lymph % (Auto) Posey % (Auto) Eos % (Auto) Baso % (Auto) Lymph # (Auto) Posey # (Auto) Eos # (Auto) Baso # (Auto) Abs Immat Gran (auto) Absolute Neuts (auto) Absolute Nucleated RBC Band Neutrophils % Nucleated RBC % Platelet Estimate Hypochromasia Anisocytosis Schistocytes Sodium Potassium Chloride Carbon Dioxide Anion Gap BUN Creatinine Estim Creat Clear Calc Estimated GFR Glucose POC Capillary Glucose 111 H 159 H Calcium Magnesium Total Bilirubin AST ALT Alkaline Phosphatase Total Protein Albumin Cryoglobulin Qualit Negative 12/26/24 12/27/24 12/27/24 21:20 05:43 08:18 WBC 8.6 RBC 4.59 L Hgb 11.4 L Hct 39.5 L MCV 86.1 MCH 24.8 L MCHC 28.9 L RDW 19.4 H Plt Count 177 MPV 9.6 Immature Gran % (Auto) 0.6 H Neut % (Auto) 66.0 Lymph % (Auto) 21.3 Posey % (Auto) 6.7 Eos % (Auto) 4.8 H Baso % (Auto) 0.6 Lymph # (Auto) 1.84 Posey # (Auto) 0.6 Eos # (Auto) 0.4 H Baso # (Auto) 0.1 Abs Immat Gran (auto) 0.05 H Absolute Neuts (auto) 5.7 Absolute Nucleated RBC 0.020 H Band Neutrophils % Not Reportable Nucleated RBC % 0.2 Platelet Estimate Slightly decreased Hypochromasia 1+ Anisocytosis 1+ Schistocytes None seen Sodium 134 L Potassium 3.8 Chloride 103 Carbon Dioxide 22 Anion Gap 9 BUN 48 H Creatinine 3.18 H Estim Creat Clear Calc 28 Estimated GFR 20 L Glucose 125 H POC Capillary Glucose 144 H 120 H Calcium 7.7 L Magnesium 1.9 Total Bilirubin 0.8 AST 56 ALT 217 H Alkaline Phosphatase 218 H Total Protein 5.0 L Albumin 2.5 L Cryoglobulin Qualit
--- NOTE | 2024-12-27 11:13 | PM.IMPN ---
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 iv ativan prn. haldol prn labs stable or unremarkable. Ammonia negative ABG unremarkable CT head unremarkable UA +/-started empirically on ceftriaxone Continue to follow culture Supportive treatment with Ativan/Haldol p.r.n. Will avoid Ativan. Neurology consulted and discussed with him. # Transaminitis: On admission, AST 215 and ALT 201. AP 340 with normal bili. Levels normal earlier this month. Hepatitis panel negative. Abd US showing cholelithiasis and mildly dilated CBD. Liver is normal in appearance. lipitor held. Repeat levels on 12/20 much worse with AST 1539, ALT 1066, AP 479, normal bili. Repeated CMP showed liver enzymes are trending down Lactic acid 1.1. Acet level <10 Possible due to congestion due to heart failure Consider autoimmune with + IV fluids stopped. GI consulted and appreciate their input. AST better. Unable to get MRCP Status post liver biopsy 12/22/2024 colon pathology with congestive hepatopathy hepatic fibrosis score 1. # Acute on chronic kidney failure: Patient presents with weakness and may have underlying PNA. Cr on admission 4.3. Baseline Cr 2.1-2.9 range. He was started on IV fluids. Urine eos negative. Eve 42. Total CK 371. Urine prot/Cr 4.7gm consistent with nephrotic syndrome. Complement normal. Hx of + 1:640. Renal US normal. Nephrology consulted and appreciate their input. Cryoglobulin pending. Phos 6.5. Creatinine is trending up, Phos remains elevated. HD catheter placement 12/22/2024 He has been started on hemodialysis. 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 50-60% tubular atrophy and interstitial fibrosis. # Pneumonia: Patient presents with weakness after having cold and cough symptoms for 3 weeks. No benefit after 2 Z-packs. CXR showing bibasilar infiltrates. No fevers or hypoxia. WBC 12K. He was started on Rocephin and Doxycycline. WBC normal now. BCx NGTD. MRSA screen negative. Urine Ag pending. Sputum Cx growing MSSA and yeast. Abx to complete a 7 day course. #Heart failure with reduced ejection fraction: Echo showing severely reduced systolic fxn with EF 25-30% with diastolic dysfunction, mild valve disease and moderate pulmonary HTN. BNP >30K. CXR showing CMG, bibasilar infiltrates and small pleural effusions. Entresto and finerenone on hold. Diuretics not listed on home med list. Eve 42 so suspect good renal perfusion. Hold Toprol XL. Monitor UOP, renal fxn, daily weights and fluid balance Hold Entresto because of worsening kidney function # Diabetes mellitus type 2 with complications: A1c 7%. The patient's blood glucose was reviewed Patient was on an insulin pump at home. Concern patient was unable to handle his pump here so this was held. Glucose remains well controlled off the insulin pump. He is eating some Continue AccuCheks covering with sliding scale. Hypoglycemia protocol available as needed. Continue to monitor # new onset atrial fibrillation. On metoprolol. Eliquis when able currently not able # nonobstructive coronary artery disease per L at C 02/2024. On aspirin. Statin on hold due to elevated liver enzymes. # Peripheral vascular disease: Patient with known PAD. Venous doppler RLE negative for DVT. Arterial doppler RLE suggestive of a popliteal or tibioperoneal trunk stenosis. There is three-vessel blood flow into the right calf with single vessel blood flow into the right foot. Continue Zetia and ASA. Resume Lipitor when able. # Hypothyroidism: Review of Endocrine note from 11/12 showing he was to skip the Friday Synthroid dose. TSH is 46.4. Free T4 is low-normal at 0.96. Total T3 is 0.5. Patient is on 250 mcg daily of Synthroid. Suspect the skipped dose has resulted in the change in his thyroid panel. Will adjust to 250mcg daily except 125mcg on Sundays. # Tobacco dependence: Patient was educated about the benefits of smoking cessation # urinary retention status post cystoscopy with passive dilation of mild bulbar narrowing. Complex Hernandez catheter placement with 16 Algerian coude on 12/20/2024. Maintain Hernandez catheter until improvement in volume status and mobility. # Low back pain - Lumbar MRI performed but no acute finding seen on limited imaging due to motion artifact. # DVT prophylaxis - Heparin # Code status - full Subjective Date/time seen: 12/27/24 11:13 Interval history: continues to be confused, answers appropriately. Still requiring restraint to protect dialysis catheter Hernandez catheter. Not eating Review of Systems Review of Systems: All systems reviewed & are unremarkable except as noted in HPI and below Exam Narrative: GENERAL: Ill-appearing, in no acute distress. Well-nourished. Confusion on restraints - EYES: EOMI. Anicteric. - HENT: Moist mucous membranes. - LUNGS: Coarse breath sound bilaterally - CARDIOVASCULAR: Regular rate and rhythm. No murmur. No JVD. - ABDOMEN: Soft, non-tender and non-distended. No palpable masses. ; Hernandez catheter in-situ, scrotum swelling is improved - EXTREMITIES: No edema. Left above knee amputation - NEUROLOGIC: No focal neurological deficits. CN II-XII grossly intact. - PSYCHIATRIC: Awake, confusion persist, oriented to place and person - SKIN: No rashes or lesions. Warm. - LYMPH: No cervical lymphadenopathy. Objective Data Vital Signs Vital Signs: Vital Signs - 24 hr 12/26/24 15:40 12/26/24 20:00 12/26/24 22:00 Temperature 97.2 F L 97.6 F Pulse Rate 120 H 120 H 122 H Respiratory Rate 18 18 18 Blood Pressure 116/81 122/95 H Pulse Oximetry 99 99 95 Oxygen Delivery Room Air 12/27/24 06:00 Temperature 97.5 F L Pulse Rate 122 H Respiratory Rate 18 Blood Pressure 111/89 Pulse Oximetry 100 Oxygen Delivery Intake/Output Intake/Output: Intake & Output 12/24/24 12/25/24 12/26/24 12/27/24 23:59 23:59 23:59 23:59 Intake Total 8157 601 0995 320 Output Total 3200 300 500 800 Balance -9602 096 7616 -480 Meds/Results Medications: Active Medications Generic Name Dose Route Start Last Admin Trade Name Freq PRN Reason Stop Dose Admin Acetaminophen 650 mg 12/17/24 16:18 12/18/24 20:54 Acetaminophen 325 Mg Tablet PO 650 mg Q4H PRN Administration Mild Pain (1-3) or Fever Hydrocodone Bitart/Acetaminophen 1 tab 12/17/24 19:37 12/19/24 15:50 Hydrocodone/Acetaminophen (*Crx) 5-325 Mg Tablet PO 1 tab Q8H PRN Administration pain 4-6 Aspirin 81 mg 12/20/24 08:00 12/26/24 09:52 Aspirin 81 Mg Chewable Tablet PO Not Given DAILY@0800 [facility] Calcium Carbonate 200 mg 12/18/24 22:39 Calcium Carbonate (Tums) 500 Mg (200 Mg Elemental) PO Q6H PRN Indigestion Dextrose 12.5 gm 12/17/24 22:39 Dextrose 50% 25 Gm/50 Ml Syringe IV PUSH PRN PRN Hypoglycemia Protocol Diphenhydramine HCl 12.5 mg 12/18/24 14:23 12/24/24 19:41 Diphenhydramine Hcl Elixir 12.5 Mg/5 Ml Udc PO 12.5 mg Q6H PRN Administration Itching Docusate Sodium 100 mg 12/23/24 21:00 12/26/24 20:58 Docusate Sodium 100 Mg Capsule PO Not Given Q12HR [facility] Ezetimibe 10 mg 12/18/24 09:00 12/26/24 09:52 Ezetimibe 10 Mg Tablet PO Not Given DAILY [facility] Glucagon 1 mg 12/17/24 22:39 Glucagon For Inj 1 Mg Vial IM PRN PRN Hypoglycemia Protocol Glucose 15 gm 12/17/24 22:39 Glucose Oral Gel 15 Gm Of Glucse In 37.5 Gm Tube PO PRN PRN Hypoglycemia Protocol Haloperidol Lactate 1 mg 12/25/24 09:39 12/26/24 20:49 Haloperidol Lactate 5 Mg/Ml Vial IM 1 mg Q6H PRN Administration Agitation Heparin Sodium (Porcine) 5,000 units 12/18/24 09:00 12/26/24 20:48 Heparin Sodium 5,000 Units/Ml Vial SUB-Q 5,000 units Q12HR [facility]GIN[facility] Administration Dextrose 1,000 mls @ 100 mls/hr 12/17/24 22:39 Dextrose 5% 1,000 Ml IVPB PRN PRN Hypoglycemia Protocol Albumin Human 50 mls @ 999 mls/hr 12/22/24 05:43 Albutein IVPB 01/21/25 05:42 Q10M PRN HYPOTENSION Ceftriaxone Sodium 1 gm in 50 mls @ 100 mls/hr 12/27/24 12:00 Rocephin 1 Gm/Ns 50 Ml IVPB Q24H [facility] Insulin Aspart 2 - 5 units 12/18/24 11:30 12/27/24 08:20 Insulin Aspart (*Bkc) 100 Units/Ml SUB-Q Not Given ACHS [facility] Protocol Levothyroxine Sodium 250 mcg 12/21/24 06:30 12/25/24 05:05 Levothyroxine Sodium 125 Mcg Tablet PO 250 mcg [id number] [facility] Administration Levothyroxine Sodium 125 mcg 12/26/24 06:30 12/26/24 08:18 Levothyroxine Sodium 125 Mcg Tablet PO Not Given Mitchell@0630 [facility] Lorazepam 1 mg 12/25/24 09:39 12/27/24 06:03 Lorazepam Inj (*Crx) 2 Mg/Ml Vial IV PUSH 1 mg Q4H PRN Administration Anxiety/agitation/procedures Metoprolol Succinate 50 mg 12/18/24 09:00 12/19/24 09:01 Metoprolol Succinate Ext Rel 50 Mg Tabcr PO 50 mg DAILY [facility] Administration Metoprolol Tartrate 5 mg 12/27/24 08:35 Metoprolol Tartrate Inj 5 Mg/5 Ml Vial IV PUSH Q8HR [facility] Metoprolol Tartrate 50 mg 12/27/24 14:00 Metoprolol Tartrate 50 Mg Tab PO Q8HR [facility] Nicotine 1 patch 12/17/24 22:45 12/26/24 09:28 Nicotine (*Pbkc) 21 Mg Patch TRANSDERM 1 patch DAILY [facility] Administration Ondansetron HCl 4 mg 12/17/24 16:18 12/19/24 21:24 Ondansetron Inj 4 Mg/2 Ml Vial IV PUSH 4 mg Q4H PRN Administration Nausea Oxycodone HCl 5 mg 12/22/24 09:12 12/25/24 01:06 Oxycodone Hcl (*Crx) 5 Mg Tab Ir PO 5 mg Q4H PRN Administration Pain Rated 7-10 Sacubitril/Valsartan 1 tab 12/17/24 21:00 12/18/24 08:25 Sacubitril/Valsartan 24-26 Mg Tablet PO 1 tab Q12HR [facility] Administration Sertraline HCl 100 mg 12/18/24 09:00 12/26/24 09:52 Sertraline Hcl 50 Mg Tablet PO Not Given DAILY [facility] Radiology Results: ITS Impressions Lumbar Spine X-Ray 12/17/24 15:44 IMPRESSION: Anterior loss of volume of L1 which is most likely chronic. MRI evaluation advised. Otherwise, No acute osseous abnormality lumbar spine. Degenerative disc disease at the level of L4-L5. Venous Doppler Study 12/18/24 13:13 IMPRESSION: 1. No deep venous thrombosis. Abdomen Ultrasound 12/18/24 13:18 IMPRESSION: 1. Cholelithiasis. No evidence of acute cholecystitis. 2. Mildly dilated common duct. Renal Ultrasound 12/18/24 13:21 IMPRESSION: 1. Normal kidney sizes. No hydronephrosis. Lumbar Spine MRI 12/18/24 15:23 IMPRESSION: Limited examination secondary to motion artifact. No abnormal signal intensity or contrast enhancement is identified within the vertebral body of L1 to suggest acute traumatic injury. Within the visualized intervertebral disc spaces, moderate degenerative disease is noted, as detailed above. Duplex Scan Lower Extremity Artery 12/18/24 21:35 IMPRESSION: Abnormal peak systolic velocity and waveform morphology suggesting a popliteal or tibioperoneal trunk stenosis. Three-vessel blood flow into the right calf with single vessel blood flow into the right foot (on the submitted images) MRCP 12/21/24 08:48 IMPRESSION: 1. Study terminated at patient request prior to obtaining the normal complement of sequences including the MRCP images and which along with some motion artifact on the obtained sequences moderately limits evaluation. 2. Anasarca with small left and moderate-sized right pleural effusions, small amount of ascites and extensive body wall, as enteric and retroperitoneal edema. 3. Normal-appearing gallbladder with no evident cholelithiasis and with no intra or extrahepatic biliary ductal dilation. Sensitivity for tiny gallstones which were suggested on prior ultrasound is limited by motion artifact. 4. Cardiomegaly. Liver Biopsy Ultrasound 12/22/24 10:51 IMPRESSION: 1. Successful Ultrasound-guided random liver biopsy. Renal Biopsy Ultrasound 12/23/24 10:32 IMPRESSION: 1. Ultrasound-guided random left kidney core needle biopsy. Chest X-Ray 12/25/24 13:40 IMPRESSION: 1. Small left and small to moderate-sized right pleural effusion with associated bibasilar atelectasis and/or pneumonia. 2. Cardiomegaly. Head CT 12/25/24 17:06 IMPRESSION: No acute intracranial process. Labs Labs: Laboratory Results - last 24 hr 12/20/24 12/26/24 12/26/24 05:56 11:43 17:06 WBC RBC Hgb Hct MCV MCH MCHC RDW Plt Count MPV Immature Gran % (Auto) Neut % (Auto) Lymph % (Auto) Buchanan % (Auto) Eos % (Auto) Baso % (Auto) Lymph # (Auto) [place]anan # (Auto) Eos # (Auto) Baso # (Auto) Abs Immat Gran (auto) Absolute Neuts (auto) Absolute Nucleated RBC Band Neutrophils % Nucleated RBC % Platelet Estimate Hypochromasia Anisocytosis Schistocytes Sodium Potassium Chloride Carbon Dioxide Anion Gap BUN Creatinine Estim Creat Clear Calc Estimated GFR Glucose POC Capillary Glucose 111 H 159 H Calcium Magnesium Total Bilirubin AST ALT Alkaline Phosphatase Total Protein Albumin Cryoglobulin Qualit Negative 12/26/24 12/27/24 12/27/24 21:20 05:43 08:18 WBC 8.6 RBC 4.59 L Hgb 11.4 L Hct 39.5 L MCV 86.1 MCH 24.8 L MCHC 28.9 L RDW 19.4 H Plt Count 177 MPV 9.6 Immature Gran % (Auto) 0.6 H Neut % (Auto) 66.0 Lymph % (Auto) 21.3 Buchanan % (Auto) 6.7 Eos % (Auto) 4.8 H Baso % (Auto) 0.6 Lymph # (Auto) 1.84 Buchanan # (Auto) 0.6 Eos # (Auto) 0.4 H Baso # (Auto) 0.1 Abs Immat Gran (auto) 0.05 H Absolute Neuts (auto) 5.7 Absolute Nucleated RBC 0.020 H Band Neutrophils % Not Reportable Nucleated RBC % 0.2 Platelet Estimate Slightly decreased Hypochromasia 1+ Anisocytosis 1+ Schistocytes None seen Sodium 134 L Potassium 3.8 Chloride 103 Carbon Dioxide 22 Anion Gap 9 BUN 48 H Creatinine 3.18 H Estim Creat Clear Calc 28 Estimated GFR 20 L Glucose 125 H POC Capillary Glucose 144 H 120 H Calcium 7.7 L Magnesium 1.9 Total Bilirubin 0.8 AST 56 ALT 217 H Alkaline Phosphatase 218 H Total Protein 5.0 L Albumin 2.5 L Cryoglobulin Qualit
[2024-12-27 11:45] LABS: Glucose Point of Care 131 mg/dl (65-105)
--- NOTE | 2024-12-27 12:11 | WPDNEURCNPN ---
Assessment and Plan Assessment and plan (1) Metabolic encephalopathy: Code(s): G93.41 - Metabolic encephalopathy Status: Acute Assessment and Plan: Fluctuating mental status could be due to his underlying kidney failure and various other medical problems including respiratory failure, pneumonia, hypothyroidism, congestive cardiac failure. CT scan of brain performed on 12/25/2024 did not show any acute abnormalities. I would suggest continuing supportive care for his various medical cup problems. Should there be any concern regarding stroke or seizures or any other neurologic problem we shall be glad to re-evaluate him from neurologic point of view. (2) Atrial flutter with rapid ventricular response: Code(s): I48.92 - Unspecified atrial flutter Status: Acute (3) PVD (peripheral vascular disease): Code(s): I73.9 - Peripheral vascular disease, unspecified Status: Acute (4) Cardiomyopathy: Code(s): I42.9 - Cardiomyopathy, unspecified Status: Acute (5) Type 2 diabetes mellitus with hyperglycemia, with long-term current use of insulin: Code(s): E11.65 - Type 2 diabetes mellitus with hyperglycemia; Z79.4 - skilled nursing (current) use of insulin Status: Acute (6) Hypothyroidism: Code(s): E03.9 - Hypothyroidism, unspecified Status: Acute (7) Chronic kidney disease, stage 4 (severe): Code(s): N18.4 - Chronic kidney disease, stage 4 (severe) Status: Acute (8) Anemia: Code(s): D64.9 - Anemia, unspecified Status: Acute (9) Status post above-knee amputation of left lower extremity: Code(s): Z89.612 - Acquired absence of left leg above knee Status: Acute (10) Acute respiratory failure: Code(s): J96.00 - Acute respiratory failure, unspecified whether with hypoxia or hypercapnia Status: Acute (11) Pneumonia: Code(s): J18.9 - Pneumonia, unspecified organism Status: Acute (12) Tobacco dependence: Code(s): F17.200 - Nicotine dependence, unspecified, uncomplicated Status: Acute Plan As discussed above Continue with the supportive care. I will suggest checking his B12 folic acid level, vitamin-D and EEG. Continue supportive care for his metabolic and multiple medical problems. Neurology will follow. Consult date: 12/27/24 HPI: Jose Mckinney Jr. is a 64 year old male Was currently undergoing hemodialysis for evaluation of mental status changes. The patient has had fluctuating mental status and is apparently very confused yesterday but this morning although his drowsy but he is much more lucid. I talked to the nursing staff also and the thought that he was appropriate in answering the questions but then goes back to sleep. The patient has history of multiple medical problems including atrial fibrillation, chronic kidney disease on hemodialysis, diabetes mellitus, peripheral vascular disease, status post left above-knee amputation, respiratory failure. Victorino is currently on hold. He also has been found to have pneumonia, congestive cardiac failure with ejection fraction 25-30%. His TSH is also fairly high at 46 and the dose of thyroxine is being adjusted. He has also been a smoker. His liver enzymes were high on admission but the improved later on. He gallbladder has shown stones. He has had a liver biopsy on 12/22/2024 the results are awaited his creatinine was 3.27 a GFR of 19. CT scan of brain has shown generalized atrophy somewhat more marked at the sylvian fissure area. His records were reviewed. Consultation note from various other specialist including Cardiology, pulmonology, Nephrology and hospitalist were reviewed. He has also been seen by community center director. Review of Systems Review of Systems: ROS unobtainable: Yes unobtainable due to mental status PMFSH Past Medical History Medical History (Updated 12/27/24 @ 12:17 by Joselito Cardoso MD) Metabolic encephalopathy Tobacco dependence Diastolic dysfunction Heart failure with mildly reduced ejection fraction Albuminuria Diabetic peripheral neuropathy Insulin dependent type 2 diabetes mellitus Stage 3b chronic kidney disease Dyslipidemia Peripheral vascular disease Hypothyroidism Essential hypertension Chronic, continuous use of opioids Chronic pain of both shoulders Surgical History Surgical History History of left above knee amputation History of amputation of lesser toe of right foot Family History Family History Father Family history of diabetes mellitus in first degree relative Hypertension Family history of coronary artery disease Mother Family history of diabetes mellitus in first degree relative Sibling Family history of diabetes mellitus in first degree relative Other Diabetes mellitus Family history of cardiovascular disease Social History Social History Social History: Surrogate medical decision maker: Cristal Frye, friend. Code status: Full code. Smoking packs per day: 1.5 Smoking cigarettes per day: 30.0 Years smoked: 50 Smoking pack-years: 75.00 Smoking status: Current every day smoker Tobacco type: cigarettes Second hand tobacco smoke exposure: No Alcohol intake: former Substance use: current Substance use type: marijuana Do You Feel Safe in your Home?: Yes Lack of Transportation: No Lack of Food: Never True Current Housing: I Have Housing Concerned About Future Housing: No Difficulty Paying Gas/Electric Bills: No Difficulty Paying for Meds: No Currently Unemployed: No Education: High School Diploma/GED Difficulty w/ Childcare or Family Care: No Living arrangements: with family Additional living arrangements comments: girlfriend Occupation/Education: other Spiritual care concerns: No Meds Home Medications and Allergies Home Medications ?Medication ?Instructions ?Recorded ?Confirmed ?Type hydrocodone 5 mg-acetaminophen 325 1 tablet PO Q8H PRN pain #60 tabs 04/27/20 12/17/24 Rx mg tablet glucagon 3 mg/actuation nasal 3 mg intranasal ONCE #1 ea 08/06/23 12/17/24 Rx spray (Baqsimi) glucose 4 gram chewable tablet 16 g (4 x 4 gram) PO Q15M PRN 08/06/23 12/17/24 Rx hypoglycemia #300 tabs sertraline 100 mg tablet 100 mg PO DAILY 02/26/24 12/17/24 History metoprolol succinate 50 mg 50 mg PO DAILY 04/01/24 12/17/24 History tablet,extended release 24 hr sacubitril 24 mg-valsartan 26 mg 1 tablet PO BID 04/20/24 12/17/24 History tablet (Entresto) finerenone 10 mg tablet (Kerendia) 10 mg PO DAILY #30 tabs 04/23/24 12/17/24 Rx atorvastatin 80 mg tablet See Rx Instructions .Route 05/14/24 12/17/24 Rx .COMPLEX #90 tabs ezetimibe 10 mg tablet 10 mg PO DAILY #90 tabs 08/05/24 12/17/24 Rx levothyroxine 125 mcg tablet See Rx Instructions .Route 10/08/24 12/17/24 Rx .COMPLEX #180 tabs insulin lispro 100 unit/mL 1 sliding scale dose subcut 10/26/24 12/17/24 Rx subcutaneous solution (Humalog USEASDIRECTD insulin pump #100 mL U-100 Insulin) blood-glucose sensor (Dexcom G7 #9 ea 11/02/24 12/17/24 Rx Sensor device) Allergies Allergy/AdvReac Type Severity Reaction Status Date / Time vancomycin Allergy Severe Anaphylactic Verified 12/18/24 02:25 Shock Vital Signs Vital Signs - 24 hr 12/26/24 15:40 12/26/24 20:00 12/26/24 22:00 Temperature 97.2 F L 97.6 F Pulse Rate 120 H 120 H 122 H Respiratory Rate 18 18 18 Blood Pressure 116/81 122/95 H Pulse Oximetry 99 99 95 Oxygen Delivery Room Air 12/27/24 06:00 12/27/24 08:00 Temperature 97.5 F L Pulse Rate 122 H Respiratory Rate 18 Blood Pressure 111/89 Pulse Oximetry 100 Oxygen Delivery Room Air Exam Narrative: The patient is currently on hemodialysis. He is drowsy but does respond to the questions but tends to keep his eyes closed most of the time. He was able to name 4 out of the 5 colors I asked him to. He knew the month and the year. He is able to name 3 large cities out of 5. No aphasia or dysarthria. No inappropriate behavior was noted except the fact of the patient drowsy. Head and neck no evidence of external injuries. Hemodialysis catheter is in the right side of the neck. Cranial nerves appear grossly intact. Pupils were equal reacting. Motor system moving both upper and lower limbs however he has above-knee amputation on the left side. Unable to cooperate for detailed sensory examination. No involuntary movements or myoclonic jerks were noted. Results Labs 12/27/24 05:43 12/27/24 05:43 Labs: Short CBC 12/27/24 Range/Units 05:43 WBC 8.6 (4.5-10.0) K/mm3 Hgb 11.4 L (14.0-18.0) g/dL Hct 39.5 L (42.0-52.0) % Plt Count 177 (150-375) k/mm3 BMP 12/27/24 05:43 Sodium 134 L Potassium 3.8 Chloride 103 Carbon Dioxide 22 BUN 48 H Creatinine 3.18 H Glucose 125 H Calcium 7.7 L Liver Function 12/27/24 Range/Units 05:43 Total Bilirubin 0.8 (0.2-1.3) mg/dL AST 56 (17-59) U/L ALT 217 H (6-50) U/L Alkaline Phosphatase 218 H (38-126) U/L Albumin 2.5 L (3.5-5.1) g/dL
[2024-12-27] MEDS: METOPROLOL TARTRATE INJ 5 MG/5 ML VIAL IV PUSH ×3 (13:55→20:58)
[2024-12-27] MEDS: NICOTINE (*PBKC) 21 MG PATCH 1 PATCH TRANSDERM (13:57)
[2024-12-27 14:06] LABS: Folic Acid 5.2 ng/mL (2.76->20); Vitamin B12 > 1000.0 pg/mL (239-931)
[2024-12-27 14:36] LABS: Basophils Absolute Auto 0.1 K/mm3 (0.0-0.1); Basophils Percent Auto 0.5 % (0.2-1.2); Eosinophils Absolute Auto 0.4 K/mm3 (0-0.3); Hematocrit 39.7 % (42.0-52.0); Hemoglobin 11.6 g/dL (14.0-18.0); Immature Granulocyte Absolute 0.03 K/mm3 (0.00-0.031); Immature Granulocyte Percent A 0.3 % (0-0.5); Lymphocytes Absolute Auto 1.25 K/mm3 (0.9-3.2); Lymphocytes Percent Auto 12.7 % (18.3-44.2); Mean Corpuscular HGB Conc 29.2 g/dl (32-36); Mean Corpuscular Hemoglobin 24.5 pg (26-34); Mean Corpuscular Volume 83.9 fl (80-100); Mean Platelet Volume 9.8 fl (7.4-10.4); Monocytes Absolute Auto 0.5 K/mm3 (0.1-0.6); Monocytes Percent Auto 5.1 % (2.6-8.5); Neutrophils Absolute Auto 7.6 K/mm3 (1.3-6.7); Neutrophils Percent Auto 77.4 % (45.5-73.1); Nucleated Red Blood Cells Perc 0.3 % (0.0-0.2); Platelet Count Result 193 k/mm3 (150-375); Red Blood Count 4.73 M/mm3 (4.6-6.20); Red Cell Distribution Width 19.2 % (11.5-14.5); White Blood Count 9.8 K/mm3 (4.5-10.0)
[2024-12-27 14:50] LABS: INR 1.2; Prothrombin Time 15.5 Seconds (11.1-14.7)
[2024-12-27 14:51] LABS: Partial Thromboplastin Time 32.8 Seconds (22.3-36.8)
[2024-12-27 14:57] LABS: Platelet Estimate Adequate (Adequate)
[2024-12-27 14:58] LABS: Anisocytosis 2+; Hypochromasia 1+; Schistocytes None Seen
[2024-12-27 14:59] LABS: Band Neutrophils Percent 0 % (0-6)
[2024-12-27 15:00] LABS: Vitamin D 25 Hydroxy < 12.8 ng/mL
[2024-12-27] MEDS: HEPARIN SOD/D5W 100 UNITS/ML 25,000 UNITS/250 ML BAG 15 UNITS IV CONT (17:36)
[2024-12-27 17:57] LABS: Glucose Point of Care 118 mg/dl (65-105)
[2024-12-27] MEDS: HALOPERIDOL LACTATE 5 MG/ML VIAL 2 MG IM (19:02)
[2024-12-27] MEDS: LORazepam INJ (*CRX) 2 MG/ML VIAL 0.5 MG IV PUSH (19:09)
[2024-12-27 20:59] LABS: Glucose Point of Care 124 mg/dl (65-105)
[2024-12-27 23:59] LABS: Partial Thromboplastin Time 67.2 Seconds (22.3-36.8)
[2024-12-28] VITALS (8 sets, daily range): BP systolic 112–135; BP diastolic 73–92; PULSE 84–125; RESP 20; TEMP 36.1–37.1; O2SAT 96–100
[2024-12-28] MEDS: HEPARIN SODIUM 5,000 UNITS/ML VIAL 3500 UNITS IV PUSH (00:06)
[2024-12-28] MEDS: oxyCODONE HCL (*CRX) 5 MG TAB IR PO (03:33)
[2024-12-28] MEDS: METOPROLOL TARTRATE 50 MG TAB PO (06:09)
[2024-12-28] MEDS: LEVOTHYROXINE SODIUM 125 MCG TABLET 250 MCG PO (06:09)
[2024-12-28 06:17] LABS: Basophils Absolute Auto 0.1 K/mm3 (0.0-0.1); Basophils Percent Auto 0.6 % (0.2-1.2); Eosinophils Absolute Auto 0.4 K/mm3 (0-0.3); Eosinophils Percent Auto 3.8 % (0-4.4); Hematocrit 38.7 % (42.0-52.0); Hemoglobin 11.4 g/dL (14.0-18.0); Immature Granulocyte Absolute 0.05 K/mm3 (0.00-0.031); Immature Granulocyte Percent A 0.5 % (0-0.5); Lymphocytes Absolute Auto 2.05 K/mm3 (0.9-3.2); Lymphocytes Percent Auto 20.7 % (18.3-44.2); Mean Corpuscular HGB Conc 29.5 g/dl (32-36); Mean Corpuscular Hemoglobin 24.6 pg (26-34); Mean Corpuscular Volume 83.6 fl (80-100); Mean Platelet Volume 9.6 fl (7.4-10.4); Monocytes Absolute Auto 0.7 K/mm3 (0.1-0.6); Monocytes Percent Auto 7.3 % (2.6-8.5); Neutrophils Absolute Auto 6.6 K/mm3 (1.3-6.7); Neutrophils Percent Auto 67.1 % (45.5-73.1); Nucleated Red Blood Cells Perc 0.3 % (0.0-0.2); Platelet Count Result 239 k/mm3 (150-375); Red Blood Count 4.63 M/mm3 (4.6-6.20); Red Cell Distribution Width 19.3 % (11.5-14.5); White Blood Count 9.9 K/mm3 (4.5-10.0)
[2024-12-28] MEDS: HEPARIN SOD/D5W 100 UNITS/ML 25,000 UNITS/250 ML BAG 15 UNITS IV CONT ×2 (06:39→06:54)
[2024-12-28 07:03] LABS: Alanine Aminotransferase 176 U/L (6-50); Albumin Level 2.6 g/dL (3.5-5.1); Alkaline Phosphatase 208 U/L (38-126); Anion Gap 10 mmol/L (4-12); Aspartate Amino Transferase 65 U/L (17-59); Bilirubin,Total 0.9 mg/dL (0.2-1.3); Blood Urea Nitrogen 28 mg/dL (9-20); Calcium 7.7 mg/dL (8.4-10.2); Carbon Dioxide 20 mmol/L (22-30); Chloride 103 mmol/L (98-107); Estimated CRCL calculation 39 ml/min; Estimated Glomerular Filt Rate 29; Glucose 144 mg/dL (65-110); Magnesium 1.8 mg/dL (1.6-2.3); Potassium 3.8 mmol/L (3.4-5.0); Sodium 133 mmol/L (137-145)
[2024-12-28 07:14] LABS: Anisocytosis 2+; Burr Cells 1+; Crenated RBC 1+; Ovalocytes 1+; Platelet Estimate Adequate (Adequate); Schistocytes None Seen
[2024-12-28 08:43] LABS: Glucose Point of Care 143 mg/dl (65-105)
[2024-12-28] MEDS: SERTRALINE HCL 50 MG TABLET 100 MG PO (08:59)
[2024-12-28] MEDS: ASPIRIN 81 MG CHEWABLE TABLET PO (09:00)
[2024-12-28] MEDS: DOCUSATE SODIUM 100 MG CAPSULE PO ×2 (09:00→21:03)
[2024-12-28] MEDS: EZETIMIBE 10 MG TABLET PO (09:00)
[2024-12-28] MEDS: NICOTINE (*PBKC) 21 MG PATCH 1 PATCH TRANSDERM (09:55)
[2024-12-28] MEDS: LORazepam INJ (*CRX) 2 MG/ML VIAL 0.5 MG IV PUSH ×2 (10:00→21:04)
--- NOTE | 2024-12-28 10:21 | WPDNEUROLOGY ---
Neurology EEG Report General Information Date of Study: 12/28/24 TEST EEG DIAGNOSIS Altered mental status. CONDITION OF RECORDING Awake, drowsy, and asleep. EEG NUMBER 25-64 CLINICAL HISTORY Patient is confused and unable to give any specific history. EEG DESCRIPTION Basic resting occipital frequency consists of poorly organized low voltage 9 to 11 hertz per 2nd alpha admixed with low-voltage beta and 5 to 7 hertz per 2nd theta activity and also with very poor anterior-posterior gradients. Bilateral symmetrical sleep activity is noted with mixture of beta alpha and theta activity evolving into bilateral symmetrical sleep spindles. Photic stimulation not done. Hyperventilation not done. non paroxysmal, nonfocal, nonlateralizing. IMPRESSION Abnormal record due to the absence of a normal background rhythm but without evidence of any paroxysmal activity or any focal or lateralizing slowing activity. Clinical correlation recommended these abnormalities could be suggestive of underlying organic or metabolic encephalopathy with the possibility of neuro degenerative disease.
--- NOTE | 2024-12-28 11:45 | P.PNNP_ITS ---
Progress Note: A&P Assessment and Plan (1) Acute kidney injury: Code(s): N17.9 - Acute kidney failure, unspecified Status: Acute Assessment and Plan: * as noted on admission * evaluation to date noted: * renal u/s normal * urine eosinophils negative * nephrotic range proteinuria * prerenal urine electrolytes * CPK mildly elevated (but not enought to affect kidney function) * further serologies pending * outpatient evaluation noted - normal complements but hematuria with positive * initiated [employer]/HD on 12/21 * s/p RENAL BIOPSY (on 12/22) with findings noted: * diabetic nephropathy * significant interstitial fibrosis/tubular atrophy noted as well * fluctuating urine output noted * however, BUN + creatinine continue to rise without dialytic support * HD yesterday - consider trial of holding HD.... (2) Stage 3b chronic kidney disease: Code(s): N18.32 - Chronic kidney disease, stage 3b Status: Chronic Assessment and Plan: * baseline creatinine runs around 1.7 - 2.3mg/dl * secondary to diabetes (as noted by renal biopsy) and hypertension (3) Pneumonia: Code(s): J18.9 - Pneumonia, unspecified organism Status: Acute Assessment and Plan: * admission CXR with bibasilar infiltrates * completed course of antibiotics * respiratory status stable (4) Heart failure with mildly reduced ejection fraction: Code(s): I50.22 - Chronic systolic (congestive) heart failure Status: Acute Assessment and Plan: * known history * repeat Echo (12/18) noted: * severely reduced systolic function with EF 25-30% * diastolic dysfunction * mild valvular disease * moderate pulmonary hypertension * CXR with cardiomegaly, bibasilar infiltrates and small pleural effusions * Entresto and diuretics on hold given #1 * removing fluid with dialysis * not opposed to re-start entresto if necessary * Cardiology following (5) Encephalopathy: Code(s): G93.40 - Encephalopathy, unspecified Status: Acute Assessment and Plan: * still with intermittent confusion * doubt uremia playing a role given improvement in BUN * testing to date noted: * ammonia level is okay * B12 and folate are okay * WBC okay and no fevers so unlikely to be related to infection * aodium good * magnesium and calcium stable * CT of brain normal * ABGs reasonable * Neurology recommendations noted (6) Atrial flutter with rapid ventricular response: Code(s): I48.92 - Unspecified atrial flutter Status: Acute Assessment and Plan: * rate control strategy * on heparin gtt for anticoagulation (7) Transaminitis: Code(s): R74.01 - Elevation of levels of liver transaminase levels Status: Deleted Assessment and Plan: * normal earlier in November 2024 * hepatitis panel negative * abd US showing cholelithiasis and mildly dilated CBD; liver is normal in appearance * holding statin * liver biopsy results noted * improving (8) Anemia: Code(s): D64.9 - Anemia, unspecified Status: Acute Assessment and Plan: * related to ELEANOR, CKD, and acute illness * Epogen with HD as needed * follow trend of H/H (9) Peripheral vascular disease: Code(s): I73.9 - Peripheral vascular disease, unspecified Status: Acute Assessment and Plan: * known history * on zetia but statin on hold given elevated LFTs * complicated by ongoing smoking * arterial dopplers noted (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 L Subjective Date/time seen: 12/28/24 11:45 Interval history: Follow-up for acute kidney injury/acute renal failure on chronic kidney disease. Tolerated dialysis treatment yesterday without issues or problems; continues to remains confused and agitated at times requiring ativan and haldol as needed; urine output continues to fluctuate as well; no acute distress noted. Exam 2 Narrative: General: elderly male in NAD but confused Heart: tachycardic; normal S1 and S2; no rub Lungs: coarse breath sounds Abdomen: obese but soft, nontender, nondistended, positive bowel sounds Extremities: no cyanosis or clubbing; 1+ edema in RLE; s/p left AKA Skin: warm and intact Objective Data Vital Signs Vital Signs: Vital Signs Temp Pulse Resp BP Pulse Ox O2 Del Method 12/28/24 11:39 112/84 12/28/24 06:09 96 12/28/24 06:00 97.1 F L 124 H 20 123/92 H 96 12/27/24 22:00 97.7 F 124 H 20 128/87 96 12/27/24 20:58 104 H 12/27/24 20:00 Room Air Intake/Output Intake/Output: Intake & Output 12/25/24 12/26/24 12/27/24 12/28/24 23:59 23:59 23:59 23:59 Intake Total 640 2540 490 2468.5 Output Total 011 563 3868 275 Balance 340 2040 -1410 2193.5 Meds/Results Medications: Active Medications Generic Name Dose Route Start Last Admin Trade Name Freq PRN Reason Stop Dose Admin Acetaminophen 650 mg 12/17/24 16:18 12/18/24 20:54 Acetaminophen 325 Mg Tablet PO 650 mg Q4H PRN Administration Mild Pain (1-3) or Fever Hydrocodone Bitart/Acetaminophen 1 tab 12/17/24 19:37 12/19/24 15:50 Hydrocodone/Acetaminophen (*Crx) 5-325 Mg Tablet PO 1 tab Q8H PRN Administration pain 4-6 Aspirin 81 mg 12/20/24 08:00 12/28/24 09:00 Aspirin 81 Mg Chewable Tablet PO 81 mg DAILY@0800 REGINA Administration Calcium Carbonate 200 mg 12/18/24 22:39 Calcium Carbonate (Tums) 500 Mg (200 Mg Elemental) PO Q6H PRN Indigestion Dextrose 12.5 gm 12/17/24 22:39 Dextrose 50% 25 Gm/50 Ml Syringe IV PUSH PRN PRN Hypoglycemia Protocol Diphenhydramine HCl 12.5 mg 12/18/24 14:23 12/24/24 19:41 Diphenhydramine Hcl Elixir 12.5 Mg/5 Ml Udc PO 12.5 mg Q6H PRN Administration Itching Docusate Sodium 100 mg 12/23/24 21:00 12/28/24 09:00 Docusate Sodium 100 Mg Capsule PO 100 mg Q12HR REGINA Administration Ezetimibe 10 mg 12/18/24 09:00 12/28/24 09:00 Ezetimibe 10 Mg Tablet PO 10 mg DAILY REGINA Administration Glucagon 1 mg 12/17/24 22:39 Glucagon For Inj 1 Mg Vial IM PRN PRN Hypoglycemia Protocol Glucose 15 gm 12/17/24 22:39 Glucose Oral Gel 15 Gm Of Glucse In 37.5 Gm Tube PO PRN PRN Hypoglycemia Protocol Haloperidol Lactate 1 mg 12/25/24 09:39 12/26/24 20:49 Haloperidol Lactate 5 Mg/Ml Vial IM 1 mg Q6H PRN Administration pulling at lines Heparin Sodium (Porcine) 7,500 units 12/27/24 14:06 Heparin Sodium 5,000 Units/Ml Vial IV PUSH PRN PRN aPTT less than 55 seconds Heparin Sodium (Porcine) 3,500 units 12/27/24 14:06 12/28/24 00:06 Heparin Sodium 5,000 Units/Ml Vial IV PUSH 3,500 units PRN PRN Administration aPTT 55 - 70 seconds Dextrose 1,000 mls @ 100 mls/hr 12/17/24 22:39 Dextrose 5% 1,000 Ml IVPB PRN PRN Hypoglycemia Protocol Albumin Human 50 mls @ 999 mls/hr 12/22/24 05:43 Albutein IVPB 01/21/25 05:42 Q10M PRN HYPOTENSION Ceftriaxone Sodium 1 gm in 50 mls @ 100 mls/hr 12/27/24 12:00 12/28/24 12:18 Rocephin 1 Gm/Ns 50 Ml IVPB 100 mls/hr Q24H REGINA Administration Heparin Sodium/Dextrose 25,000 units in 250 mls @ 15 mls/hr 12/27/24 14:10 12/28/24 13:37 Heparin Sodium/D5w 100 Units/Ml IV CONT 1,500 units/hr .[id number] REGINA 15 mls/hr Titration Protocol 1,500 UNITS/HR Insulin Aspart 2 - 5 units 12/18/24 11:30 12/28/24 17:15 Insulin Aspart (*Bkc) 100 Units/Ml SUB-Q Not Given ACHS REGINA Protocol Levothyroxine Sodium 250 mcg 12/21/24 06:30 12/28/24 06:09 Levothyroxine Sodium 125 Mcg Tablet PO 250 mcg [id number] REGINA Administration Levothyroxine Sodium 125 mcg 12/26/24 06:30 12/26/24 08:18 Levothyroxine Sodium 125 Mcg Tablet PO Not Given [email or web address]@[id number] REGINA Lorazepam 0.5 mg 12/27/24 18:28 12/28/24 10:00 Lorazepam Inj (*Crx) 2 Mg/Ml Vial IV PUSH 0.5 mg Q6H PRN Administration Anxiety Metoprolol Tartrate 25 mg 12/28/24 14:00 12/28/24 17:13 Metoprolol Tartrate 25 Mg Tablet PO 25 mg Q8HR REGINA Administration Nicotine 1 patch 12/17/24 22:45 12/28/24 09:55 Nicotine (*Pbkc) 21 Mg Patch TRANSDERM 1 patch DAILY REGINA Administration Ondansetron HCl 4 mg 12/17/24 16:18 12/19/24 21:24 Ondansetron Inj 4 Mg/2 Ml Vial IV PUSH 4 mg Q4H PRN Administration Nausea Oxycodone HCl 5 mg 12/22/24 09:12 12/28/24 03:33 Oxycodone Hcl (*Crx) 5 Mg Tab Ir PO 5 mg Q4H PRN Administration Pain Rated 7-10 Sacubitril/Valsartan 1 tab 12/17/24 21:00 12/18/24 08:25 Sacubitril/Valsartan 24-26 Mg Tablet PO 1 tab Q12HR REGINA Administration Sertraline HCl 100 mg 12/18/24 09:00 12/28/24 08:59 Sertraline Hcl 50 Mg Tablet PO 100 mg DAILY REGINA Administration Radiology Results: ITS Impressions Lumbar Spine X-Ray 12/17/24 15:44 IMPRESSION: Anterior loss of volume of L1 which is most likely chronic. MRI evaluation advised. Otherwise, No acute osseous abnormality lumbar spine. Degenerative disc disease at the level of L4-L5. Venous Doppler Study 12/18/24 13:13 IMPRESSION: 1. No deep venous thrombosis. Abdomen Ultrasound 12/18/24 13:18 IMPRESSION: 1. Cholelithiasis. No evidence of acute cholecystitis. 2. Mildly dilated common duct. Renal Ultrasound 12/18/24 13:21 IMPRESSION: 1. Normal kidney sizes. No hydronephrosis. Lumbar Spine MRI 12/18/24 15:23 IMPRESSION: Limited examination secondary to motion artifact. No abnormal signal intensity or contrast enhancement is identified within the vertebral body of L1 to suggest acute traumatic injury. Within the visualized intervertebral disc spaces, moderate degenerative disease is noted, as detailed above. Duplex Scan Lower Extremity Artery 12/18/24 21:35 IMPRESSION: Abnormal peak systolic velocity and waveform morphology suggesting a popliteal or tibioperoneal trunk stenosis. Three-vessel blood flow into the right calf with single vessel blood flow into the right foot (on the submitted images) MRCP 12/21/24 08:48 IMPRESSION: 1. Study terminated at patient request prior to obtaining the normal complement of sequences including the MRCP images and which along with some motion artifact on the obtained sequences moderately limits evaluation. 2. Anasarca with small left and moderate-sized right pleural effusions, small amount of ascites and extensive body wall, as enteric and retroperitoneal edema. 3. Normal-appearing gallbladder with no evident cholelithiasis and with no intra or extrahepatic biliary ductal dilation. Sensitivity for tiny gallstones which were suggested on prior ultrasound is limited by motion artifact. 4. Cardiomegaly. Liver Biopsy Ultrasound 12/22/24 10:51 IMPRESSION: 1. Successful Ultrasound-guided random liver biopsy. Renal Biopsy Ultrasound 12/23/24 10:32 IMPRESSION: 1. Ultrasound-guided random left kidney core needle biopsy. Chest X-Ray 12/25/24 13:40 IMPRESSION: 1. Small left and small to moderate-sized right pleural effusion with associated bibasilar atelectasis and/or pneumonia. 2. Cardiomegaly. Head CT 12/25/24 17:06 IMPRESSION: No acute intracranial process. Labs Labs: Laboratory Tests 12/28/24 06:11 12/28/24 06:11 Calcium 7.7 L Magnesium 1.8 Total Bilirubin 0.9 AST 65 H ALT 176 H Alkaline Phosphatase 208 H Total Protein 5.0 L Albumin 2.6 L
--- NOTE | 2024-12-28 12:00 | PCNFU ---
Nutrition Follow-Up Complete: Increased protein energy needs related to hemodialysis, as evidenced by labs, intakes 5-100% Goal:Adequate PO intake at least 75% meals and supplements Pt current nutrition is NPO at this time. Nutrition recommendation: resume a po diet, add supplements: nutrition ice cream cups (300kcals, 9g protein), Ensure Enlive TID (350kcals, 20g protein) Last recorded weight is 107.5 kg. Bowel Motility: +BM 12/28 Labs Reviewed: Hgb:11.4, HCT:38.7, NA:133, BUN:28, Cr:2.28, Glu:144 Meds Noted: insulin, heparin Skin: WNL Additional Notes: Pt NPO at this time, was not alert and oriented enough for po intake, a dobhoff was placed for tube feeds last night and consult sent for tube feed recommendations, however pt pulled tube out. Pt more alert and oriented today per nursing. Dr Jay suggesting we resume po intake with a pureed diet at this time. Pt eating ice cream and pudding well per nursing staff. Agree to advance diet, recommend to add nutrition ice cream cups, Ensure Enlive TID with meals. Encourage po intake and assist as needed. Monitoring intakes, labs, weights, diet orders, plan of care Follow up in 3 days
[2024-12-28 12:01] LABS: Glucose Point of Care 132 mg/dl (65-105)
--- NOTE | 2024-12-28 13:57 | PM.IMPN ---
Progress Note: A&P Assessment and Plan (1) Cardiomyopathy: Code(s): I42.9 - Cardiomyopathy, unspecified Status: Acute (2) Heart failure with mildly reduced ejection fraction: Code(s): I50.22 - Chronic systolic (congestive) heart failure Status: Acute (3) Atrial flutter with rapid ventricular response: Code(s): I48.92 - Unspecified atrial flutter Status: Acute (4) Type 2 diabetes mellitus with hyperglycemia, with long-term current use of insulin: Code(s): E11.65 - Type 2 diabetes mellitus with hyperglycemia; Z79.4 - continuous churn buttermaker (current) use of insulin Status: Acute (5) Acute kidney injury: Code(s): N17.9 - Acute kidney failure, unspecified Status: Acute (6) Chronic kidney disease, stage 4 (severe): Code(s): N18.4 - Chronic kidney disease, stage 4 (severe) Status: Acute (7) Status post above-knee amputation of left lower extremity: Code(s): Z89.612 - Acquired absence of left leg above knee Status: Acute (8) Acute respiratory failure: Code(s): J96.00 - Acute respiratory failure, unspecified whether with hypoxia or hypercapnia Status: Acute Plan # agitation/confusion: overnight 12/25/2024. iv ativan prn. haldol prn labs stable or unremarkable. Ammonia negative ABG unremarkable CT head unremarkable UA +/-started empirically on ceftriaxone Continue to follow culture Supportive treatment with Ativan/Haldol p.r.n. Will avoid Ativan. Neurology consulted and discussed with him. # Transaminitis: On admission, AST 215 and ALT 201. AP 340 with normal bili. Levels normal earlier this month. Hepatitis panel negative. Abd US showing cholelithiasis and mildly dilated CBD. Liver is normal in appearance. lipitor held. Repeat levels on 12/20 much worse with AST 1539, ALT 1066, AP 479, normal bili. Repeated CMP showed liver enzymes are trending down Lactic acid 1.1. Acet level <10 Possible due to congestion due to heart failure Consider autoimmune with + IV fluids stopped. GI consulted and appreciate their input. AST better. Unable to get MRCP Status post liver biopsy 12/22/2024 colon pathology with congestive hepatopathy hepatic fibrosis score 1. # Acute on chronic kidney failure: Patient presents with weakness and may have underlying PNA. Cr on admission 4.3. Baseline Cr 2.1-2.9 range. He was started on IV fluids. Urine eos negative. Eve 42. Total CK 371. Urine prot/Cr 4.7gm consistent with nephrotic syndrome. Complement normal. Hx of + 1:640. Renal US normal. Nephrology consulted and appreciate their input. Cryoglobulin pending. Phos 6.5. Creatinine is trending up, Phos remains elevated. HD catheter placement 12/22/2024 He has been started on hemodialysis. 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 50-60% tubular atrophy and interstitial fibrosis. Last dialysis 12/27/2024 # Pneumonia: Patient presents with weakness after having cold and cough symptoms for 3 weeks. No benefit after 2 Z-packs. CXR showing bibasilar infiltrates. No fevers or hypoxia. WBC 12K. He was started on Rocephin and Doxycycline. WBC normal now. BCx NGTD. MRSA screen negative. Urine Ag pending. Sputum Cx growing MSSA and yeast. Abx to complete a 7 day course. #Heart failure with reduced ejection fraction: Echo showing severely reduced systolic fxn with EF 25-30% with diastolic dysfunction, mild valve disease and moderate pulmonary HTN. BNP >30K. CXR showing CMG, bibasilar infiltrates and small pleural effusions. Entresto and finerenone on hold. Diuretics not listed on home med list. Eve 42 so suspect good renal perfusion. Hold Toprol XL. Monitor UOP, renal fxn, daily weights and fluid balance Hold Entresto because of worsening kidney function # Diabetes mellitus type 2 with complications: A1c 7%. The patient's blood glucose was reviewed Patient was on an insulin pump at home. Concern patient was unable to handle his pump here so this was held. Glucose remains well controlled off the insulin pump. He is eating some Continue AccuCheks covering with sliding scale. Hypoglycemia protocol available as needed. Continue to monitor # new onset atrial fibrillation. On metoprolol. Eliquis when able currently not able On heparin drip. # nonobstructive coronary artery disease per L at C 02/2024. On aspirin. Statin on hold due to elevated liver enzymes. # Peripheral vascular disease: Patient with known PAD. Venous doppler RLE negative for DVT. Arterial doppler RLE suggestive of a popliteal or tibioperoneal trunk stenosis. There is three-vessel blood flow into the right calf with single vessel blood flow into the right foot. Continue Zetia and ASA. Resume Lipitor when able. # Hypothyroidism: Review of Endocrine note from 11/12 showing he was to skip the Friday Synthroid dose. TSH is 46.4. Free T4 is low-normal at 0.96. Total T3 is 0.5. Patient is on 250 mcg daily of Synthroid. Suspect the skipped dose has resulted in the change in his thyroid panel. Will adjust to 250mcg daily except 125mcg on Sundays. # Tobacco dependence: Patient was educated about the benefits of smoking cessation # urinary retention status post cystoscopy with passive dilation of mild bulbar narrowing. Complex Hernandez catheter placement with 16 Malian coude on 12/20/2024. Maintain Hernandez catheter until improvement in volume status and mobility. # Low back pain - Lumbar MRI performed but no acute finding seen on limited imaging due to motion artifact. # DVT prophylaxis - Heparin # Code status - full Subjective Date/time seen: 12/28/24 13:57 Interval history: Underwent dialysis yesterday. Patient still remains confused. Poor urine output. On Haldol p.r.n. on Ativan p.r.n. Review of Systems Review of Systems: All systems reviewed & are unremarkable except as noted in HPI and below Exam Narrative: GENERAL: Ill-appearing, in no acute distress. Well-nourished. Confused on restraints answers appropriately intermittently - EYES: EOMI. Anicteric. - HENT: Moist mucous membranes. - LUNGS: Coarse breath sound bilaterally - CARDIOVASCULAR: Regular rate and rhythm. No murmur. No JVD. - ABDOMEN: Soft, non-tender and non-distended. No palpable masses. ; Hernandez catheter in-situ, scrotum swelling is improved - EXTREMITIES: No edema. Left above knee amputation - NEUROLOGIC: No focal neurological deficits. CN II-XII grossly intact. - PSYCHIATRIC: Awake, confusion persist, oriented to place and person - SKIN: No rashes or lesions. Warm. - LYMPH: No cervical lymphadenopathy. Objective Data Vital Signs Vital Signs: Vital Signs - 24 hr 12/27/24 14:00 12/27/24 14:30 12/27/24 14:42 Temperature 97.5 F L 97.7 F Pulse Rate 100 99 128 H Respiratory Rate 20 16 Blood Pressure 120/74 123/84 161/113 H Pulse Oximetry 100 96 Oxygen Delivery 12/27/24 17:34 12/27/24 20:00 12/27/24 20:58 Temperature Pulse Rate 98 104 H Respiratory Rate Blood Pressure Pulse Oximetry Oxygen Delivery Room Air 12/27/24 22:00 12/28/24 06:00 12/28/24 06:09 Temperature 97.7 F 97.1 F L Pulse Rate 124 H 124 H 96 Respiratory Rate 20 20 Blood Pressure 128/87 123/92 H Pulse Oximetry 96 96 Oxygen Delivery 12/28/24 12:59 Temperature Pulse Rate Respiratory Rate Blood Pressure 112/84 Pulse Oximetry Oxygen Delivery Intake/Output Intake/Output: Intake & Output 12/25/24 12/26/24 12/27/24 12/28/24 23:59 23:59 23:59 23:59 Intake Total 640 2540 490 2468.5 Output Total 457 430 7663 275 Balance 340 2040 -1410 2193.5 Meds/Results Medications: Active Medications Generic Name Dose Route Start Last Admin Trade Name Freq PRN Reason Stop Dose Admin Acetaminophen 650 mg 12/17/24 16:18 12/18/24 20:54 Acetaminophen 325 Mg Tablet PO 650 mg Q4H PRN Administration Mild Pain (1-3) or Fever Hydrocodone Bitart/Acetaminophen 1 tab 12/17/24 19:37 12/19/24 15:50 Hydrocodone/Acetaminophen (*Crx) 5-325 Mg Tablet PO 1 tab Q8H PRN Administration pain 4-6 Aspirin 81 mg 12/20/24 08:00 12/28/24 09:00 Aspirin 81 Mg Chewable Tablet PO 81 mg DAILY@0800 REGINA Administration Calcium Carbonate 200 mg 12/18/24 22:39 Calcium Carbonate (Tums) 500 Mg (200 Mg Elemental) PO Q6H PRN Indigestion Dextrose 12.5 gm 12/17/24 22:39 Dextrose 50% 25 Gm/50 Ml Syringe IV PUSH PRN PRN Hypoglycemia Protocol Diphenhydramine HCl 12.5 mg 12/18/24 14:23 12/24/24 19:41 Diphenhydramine Hcl Elixir 12.5 Mg/5 Ml Udc PO 12.5 mg Q6H PRN Administration Itching Docusate Sodium 100 mg 12/23/24 21:00 12/28/24 09:00 Docusate Sodium 100 Mg Capsule PO 100 mg Q12HR REGINA Administration Ezetimibe 10 mg 12/18/24 09:00 12/28/24 09:00 Ezetimibe 10 Mg Tablet PO 10 mg DAILY REGINA Administration Glucagon 1 mg 12/17/24 22:39 Glucagon For Inj 1 Mg Vial IM PRN PRN Hypoglycemia Protocol Glucose 15 gm 12/17/24 22:39 Glucose Oral Gel 15 Gm Of Glucse In 37.5 Gm Tube PO PRN PRN Hypoglycemia Protocol Haloperidol Lactate 1 mg 12/25/24 09:39 12/26/24 20:49 Haloperidol Lactate 5 Mg/Ml Vial IM 1 mg Q6H PRN Administration pulling at lines Heparin Sodium (Porcine) 7,500 units 12/27/24 14:06 Heparin Sodium 5,000 Units/Ml Vial IV PUSH PRN PRN aPTT less than 55 seconds Heparin Sodium (Porcine) 3,500 units 12/27/24 14:06 12/28/24 00:06 Heparin Sodium 5,000 Units/Ml Vial IV PUSH 3,500 units PRN PRN Administration aPTT 55 - 70 seconds Dextrose 1,000 mls @ 100 mls/hr 12/17/24 22:39 Dextrose 5% 1,000 Ml IVPB PRN PRN Hypoglycemia Protocol Albumin Human 50 mls @ 999 mls/hr 12/22/24 05:43 Albutein IVPB 01/21/25 05:42 Q10M PRN HYPOTENSION Ceftriaxone Sodium 1 gm in 50 mls @ 100 mls/hr 12/27/24 12:00 12/28/24 12:18 Rocephin 1 Gm/Ns 50 Ml IVPB 100 mls/hr Q24H REGINA Administration Heparin Sodium/Dextrose 25,000 units in 250 mls @ 15 mls/hr 12/27/24 14:10 12/28/24 13:37 Heparin Sodium/D5w 100 Units/Ml IV CONT 1,500 units/hr .[id number] REGINA 15 mls/hr Titration Protocol 1,500 UNITS/HR Insulin Aspart 2 - 5 units 12/18/24 11:30 12/28/24 12:03 Insulin Aspart (*Bkc) 100 Units/Ml SUB-Q Not Given ACHS REGINA Protocol Levothyroxine Sodium 250 mcg 12/21/24 06:30 12/28/24 06:09 Levothyroxine Sodium 125 Mcg Tablet PO 250 mcg [id number] REGINA Administration Levothyroxine Sodium 125 mcg 12/26/24 06:30 12/26/24 08:18 Levothyroxine Sodium 125 Mcg Tablet PO Not Given [email or web address]@[id number] REGINA Lorazepam 1 mg 12/25/24 09:39 12/27/24 06:03 Lorazepam Inj (*Crx) 2 Mg/Ml Vial IV PUSH 1 mg Q4H PRN Administration Anxiety/pulling lines/procedur Lorazepam 0.5 mg 12/27/24 18:28 12/28/24 10:00 Lorazepam Inj (*Crx) 2 Mg/Ml Vial IV PUSH 0.5 mg Q6H PRN Administration Anxiety Metoprolol Tartrate 25 mg 12/28/24 14:00 Metoprolol Tartrate 25 Mg Tablet PO Q8HR [facility] Nicotine 1 patch 12/17/24 22:45 12/28/24 09:55 Nicotine (*Pbkc) 21 Mg Patch TRANSDERM 1 patch DAILY [facility] Administration Ondansetron HCl 4 mg 12/17/24 16:18 12/19/24 21:24 Ondansetron Inj 4 Mg/2 Ml Vial IV PUSH 4 mg Q4H PRN Administration Nausea Oxycodone HCl 5 mg 12/22/24 09:12 12/28/24 03:33 Oxycodone Hcl (*Crx) 5 Mg Tab Ir PO 5 mg Q4H PRN Administration Pain Rated 7-10 Sacubitril/Valsartan 1 tab 12/17/24 21:00 12/18/24 08:25 Sacubitril/Valsartan 24-26 Mg Tablet PO 1 tab Q12HR REGINA Administration Sertraline HCl 100 mg 12/18/24 09:00 12/28/24 08:59 Sertraline Hcl 50 Mg Tablet PO 100 mg DAILY [facility] Administration Radiology Results: ITS Impressions Lumbar Spine X-Ray 12/17/24 15:44 IMPRESSION: Anterior loss of volume of L1 which is most likely chronic. MRI evaluation advised. Otherwise, No acute osseous abnormality lumbar spine. Degenerative disc disease at the level of L4-L5. Venous Doppler Study 12/18/24 13:13 IMPRESSION: 1. No deep venous thrombosis. Abdomen Ultrasound 12/18/24 13:18 IMPRESSION: 1. Cholelithiasis. No evidence of acute cholecystitis. 2. Mildly dilated common duct. Renal Ultrasound 12/18/24 13:21 IMPRESSION: 1. Normal kidney sizes. No hydronephrosis. Lumbar Spine MRI 12/18/24 15:23 IMPRESSION: Limited examination secondary to motion artifact. No abnormal signal intensity or contrast enhancement is identified within the vertebral body of L1 to suggest acute traumatic injury. Within the visualized intervertebral disc spaces, moderate degenerative disease is noted, as detailed above. Duplex Scan Lower Extremity Artery 12/18/24 21:35 IMPRESSION: Abnormal peak systolic velocity and waveform morphology suggesting a popliteal or tibioperoneal trunk stenosis. Three-vessel blood flow into the right calf with single vessel blood flow into the right foot (on the submitted images) MRCP 12/21/24 08:48 IMPRESSION: 1. Study terminated at patient request prior to obtaining the normal complement of sequences including the MRCP images and which along with some motion artifact on the obtained sequences moderately limits evaluation. 2. Anasarca with small left and moderate-sized right pleural effusions, small amount of ascites and extensive body wall, as enteric and retroperitoneal edema. 3. Normal-appearing gallbladder with no evident cholelithiasis and with no intra or extrahepatic biliary ductal dilation. Sensitivity for tiny gallstones which were suggested on prior ultrasound is limited by motion artifact. 4. Cardiomegaly. Liver Biopsy Ultrasound 12/22/24 10:51 IMPRESSION: 1. Successful Ultrasound-guided random liver biopsy. Renal Biopsy Ultrasound 12/23/24 10:32 IMPRESSION: 1. Ultrasound-guided random left kidney core needle biopsy. Chest X-Ray 12/25/24 13:40 IMPRESSION: 1. Small left and small to moderate-sized right pleural effusion with associated bibasilar atelectasis and/or pneumonia. 2. Cardiomegaly. Head CT 12/25/24 17:06 IMPRESSION: No acute intracranial process. Labs Labs: Laboratory Results - last 24 hr 12/27/24 12/27/24 12/27/24 12:38 14:30 17:50 WBC 9.8 RBC 4.73 Hgb 11.6 L Hct 39.7 L MCV 83.9 MCH 24.5 L MCHC 29.2 L RDW 19.2 H Plt Count 193 MPV 9.8 Immature Gran % (Auto) 0.3 Neut % (Auto) 77.4 H Lymph % (Auto) 12.7 L [place] % (Auto) 5.1 Eos % (Auto) 4.0 Baso % (Auto) 0.5 Lymph # (Auto) 1.25 [place] # (Auto) 0.5 Eos # (Auto) 0.4 H Baso # (Auto) 0.1 Abs Immat Gran (auto) 0.03 Absolute Neuts (auto) 7.6 H Absolute Nucleated RBC 0.030 H Band Neutrophils % 0 Nucleated RBC % 0.3 H Platelet Estimate Adequate Hypochromasia 1+ Anisocytosis 2+ Ovalocytes [place] Cells Crenated Cell Schistocytes None seen PT 15.5 H INR 1.2 APTT 32.8 Sodium Potassium Chloride Carbon Dioxide Anion Gap BUN Creatinine Estim Creat Clear Calc Estimated GFR Glucose POC Capillary Glucose 118 H Calcium Magnesium Total Bilirubin AST ALT Alkaline Phosphatase Total Protein Albumin Vitamin B12 > 1000.0 H Vitamin D 25-Hydroxy < 12.8 Folate 5.2 12/27/24 12/27/24 12/28/24 20:55 23:32 06:11 WBC 9.9 RBC 4.63 Hgb 11.4 L Hct 38.7 L MCV 83.6 MCH 24.6 L MCHC 29.5 L RDW 19.3 H Plt Count 239 MPV 9.6 Immature Gran % (Auto) 0.5 Neut % (Auto) 67.1 Lymph % (Auto) 20.7 [place] % (Auto) 7.3 Eos % (Auto) 3.8 Baso % (Auto) 0.6 Lymph # (Auto) 2.05 [place] # (Auto) 0.7 H Eos # (Auto) 0.4 H Baso # (Auto) 0.1 Abs Immat Gran (auto) 0.05 H Absolute Neuts (auto) 6.6 Absolute Nucleated RBC 0.030 H Band Neutrophils % Not Reportable Nucleated RBC % 0.3 H Platelet Estimate Adequate Hypochromasia Anisocytosis 2+ Ovalocytes 1+ [place] Cells 1+ Crenated Cell 1+ Schistocytes None seen PT INR APTT 67.2 H 112.0 H Sodium 133 L Potassium 3.8 Chloride 103 Carbon Dioxide 20 L Anion Gap 10 BUN 28 H D Creatinine 2.28 H Estim Creat Clear Calc 39 Estimated GFR 29 L Glucose 144 H POC Capillary Glucose 124 H Calcium 7.7 L Magnesium 1.8 Total Bilirubin 0.9 AST 65 H ALT 176 H Alkaline Phosphatase 208 H Total Protein 5.0 L Albumin 2.6 L Vitamin B12 Vitamin D 25-Hydroxy Folate 12/28/24 12/28/24 12/28/24 08:40 11:47 12:55 WBC RBC Hgb Hct MCV MCH MCHC RDW Plt Count MPV Immature Gran % (Auto) Neut % (Auto) Lymph % (Auto) [place] % (Auto) Eos % (Auto) Baso % (Auto) Lymph # (Auto) [place] # (Auto) Eos # (Auto) Baso # (Auto) Abs Immat Gran (auto) Absolute Neuts (auto) Absolute Nucleated RBC Band Neutrophils % Nucleated RBC % Platelet Estimate Hypochromasia Anisocytosis Ovalocytes [place] Cells Crenated Cell Schistocytes PT INR APTT 85.0 H Sodium Potassium Chloride Carbon Dioxide Anion Gap BUN Creatinine Estim Creat Clear Calc Estimated GFR Glucose POC Capillary Glucose 143 H 132 H Calcium Magnesium Total Bilirubin AST ALT Alkaline Phosphatase Total Protein Albumin Vitamin B12 Vitamin D 25-Hydroxy Folate
--- NOTE | 2024-12-28 14:04 | ECG_ITS ---
Test Date: 2024-12-28 14:44:58 Measurements Intervals [place] Rate: 105 P: 0 HI: 0 QRS: 15 QRSD: 113 T: 240 QT: 371 QTc: 492 Interpretive Statements ATRIAL FLUTTER/TACHYCARDIA WITH RAPID VENTRICULAR RESPONSE INTRAVENTRICULAR CONDUCTION DELAY LOW QRS VOLTAGE IN LIMB LEADS CONSIDER INFERIOR INFARCT, AGE INDETERMINATE BORDERLINE ST-T WAVE ABNORMALITY- LAT/HIGH LAT LEADS BASELINE ARTIFACT- V2 ABNORMAL ECG Compared to ECG 12/17/2024 13:37:36 HEART RATE HAS DECREASED Electronically Signed On 12-28-2024 14:56:29 CDT by Devin Wilson D.O.
--- NOTE | 2024-12-28 15:21 | P.PNCA_ITS ---
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 and chronic tobacco dependence presented feeling weak Chronic systolic heart failure -at one point his left ventricular ejection fraction improved to 40% however it is back to its previous 20% -he appears euvolemic and compensated however unfortunately due to low blood pressure, he is no longer able to tolerate guideline directed medical therapy which could be indication of worsening disease -volume control through hemodialysis which is new for him during this hospitalization Paroxysmal atrial fibrillation -this is a new diagnosis for and given his degree elevated risk for stroke, would recommend Eliquis 5 mg p.o. b.i.d. when able to tolerate -Continue metoprolol tartrate 25mg q8h. In light of his cardiomyopathy, would shift to ToprolXL prior to discharge. Hyperlipidemia -statins on hold due to transaminitis -continue Zetia 10 mg p.o. daily Recommendations and plan discussed with Hospitalist. Cardiology will sign off. Please call with questions. Subjective Date/time seen: 12/28/24 15:21 Interval history: Cardiology follow up visit Remains confused and is in restraints because he is pulling at medical equipment. Denies feeling any palpitations. Review of Systems Review of Systems: ROS unobtainable: Yes unobtainable due to medical condition Cardiovascular: Cardiovascular: Reports as per HPI Respiratory: Respiratory: Reports as per HPI Exam Const: General: comfortable Other: Ill-appearing HENMT: Mouth: Yes moist mucous membranes Eyes: EOM: EOMs intact bilaterally Neck: Neck: no JVD Resp: Effort & Inspection: normal respiratory effort Auscultation: clear to auscultation bilaterally and diminished lung sounds Cardio: Rate: tachycardic Rhythm: abnormal rhythm irregularly irregular GI: Inspection: distended Skin: General skin exam: normal color Neuro: Speech: normal speech Other: Sedated Extrem: Other: Left AKA and right TMA Psych: Affect: normal affect Objective Data Vital Signs Vital Signs: Vital Signs - 24 hr 12/27/24 17:34 12/27/24 20:00 12/27/24 20:58 Temperature Pulse Rate 98 104 H Respiratory Rate Blood Pressure Pulse Oximetry Oxygen Delivery Room Air 12/27/24 22:00 12/28/24 06:00 12/28/24 06:09 Temperature 36.5 C 36.2 C L Pulse Rate 124 H 124 H 96 Respiratory Rate 20 20 Blood Pressure 128/87 123/92 H Pulse Oximetry 96 96 Oxygen Delivery 12/28/24 12:59 Temperature Pulse Rate Respiratory Rate Blood Pressure 112/84 Pulse Oximetry Oxygen Delivery Intake/Output Intake/Output: Intake & Output 12/25/24 12/26/24 12/27/24 12/28/24 23:59 23:59 23:59 23:59 Intake Total 640 2540 490 2468.5 Output Total 379 302 9800 275 Balance 340 2040 -1410 2193.5 Meds/Results Medications: Active Medications Generic Name Dose Route Start Last Admin Trade Name Freq PRN Reason Stop Dose Admin Acetaminophen 650 mg 12/17/24 16:18 12/18/24 20:54 Acetaminophen 325 Mg Tablet PO 650 mg Q4H PRN Administration Mild Pain (1-3) or Fever Hydrocodone Bitart/Acetaminophen 1 tab 12/17/24 19:37 12/19/24 15:50 Hydrocodone/Acetaminophen (*Crx) 5-325 Mg Tablet PO 1 tab Q8H PRN Administration pain 4-6 Aspirin 81 mg 12/20/24 08:00 12/28/24 09:00 Aspirin 81 Mg Chewable Tablet PO 81 mg DAILY@0800 REGINA Administration Calcium Carbonate 200 mg 12/18/24 22:39 Calcium Carbonate (Tums) 500 Mg (200 Mg Elemental) PO Q6H PRN Indigestion Dextrose 12.5 gm 12/17/24 22:39 Dextrose 50% 25 Gm/50 Ml Syringe IV PUSH PRN PRN Hypoglycemia Protocol Diphenhydramine HCl 12.5 mg 12/18/24 14:23 12/24/24 19:41 Diphenhydramine Hcl Elixir 12.5 Mg/5 Ml Udc PO 12.5 mg Q6H PRN Administration Itching Docusate Sodium 100 mg 12/23/24 21:00 12/28/24 09:00 Docusate Sodium 100 Mg Capsule PO 100 mg Q12HR REGINA Administration Ezetimibe 10 mg 12/18/24 09:00 12/28/24 09:00 Ezetimibe 10 Mg Tablet PO 10 mg DAILY REGINA Administration Glucagon 1 mg 12/17/24 22:39 Glucagon For Inj 1 Mg Vial IM PRN PRN Hypoglycemia Protocol Glucose 15 gm 12/17/24 22:39 Glucose Oral Gel 15 Gm Of Glucse In 37.5 Gm Tube PO PRN PRN Hypoglycemia Protocol Haloperidol Lactate 1 mg 12/25/24 09:39 12/26/24 20:49 Haloperidol Lactate 5 Mg/Ml Vial IM 1 mg Q6H PRN Administration pulling at lines Heparin Sodium (Porcine) 7,500 units 12/27/24 14:06 Heparin Sodium 5,000 Units/Ml Vial IV PUSH PRN PRN aPTT less than 55 seconds Heparin Sodium (Porcine) 3,500 units 12/27/24 14:06 12/28/24 00:06 Heparin Sodium 5,000 Units/Ml Vial IV PUSH 3,500 units PRN PRN Administration aPTT 55 - 70 seconds Dextrose 1,000 mls @ 100 mls/hr 12/17/24 22:39 Dextrose 5% 1,000 Ml IVPB PRN PRN Hypoglycemia Protocol Albumin Human 50 mls @ 999 mls/hr 12/22/24 05:43 Albutein IVPB 01/21/25 05:42 Q10M PRN HYPOTENSION Ceftriaxone Sodium 1 gm in 50 mls @ 100 mls/hr 12/27/24 12:00 12/28/24 12:18 Rocephin 1 Gm/Ns 50 Ml IVPB 100 mls/hr Q24H REGINA Administration Heparin Sodium/Dextrose 25,000 units in 250 mls @ 15 mls/hr 12/27/24 14:10 12/28/24 13:37 Heparin Sodium/D5w 100 Units/Ml IV CONT 1,500 units/hr .[id number] REGINA 15 mls/hr Titration Protocol 1,500 UNITS/HR Insulin Aspart 2 - 5 units 12/18/24 11:30 12/28/24 12:03 Insulin Aspart (*Bkc) 100 Units/Ml SUB-Q Not Given ACHS REGINA Protocol Levothyroxine Sodium 250 mcg 12/21/24 06:30 12/28/24 06:09 Levothyroxine Sodium 125 Mcg Tablet PO 250 mcg [email or web address] REGINA Administration Levothyroxine Sodium 125 mcg 12/26/24 06:30 12/26/24 08:18 Levothyroxine Sodium 125 Mcg Tablet PO Not Given [email or web address] [facility] Lorazepam 0.5 mg 12/27/24 18:28 12/28/24 10:00 Lorazepam Inj (*Crx) 2 Mg/Ml Vial IV PUSH 0.5 mg Q6H PRN Administration Anxiety Metoprolol Tartrate 25 mg 12/28/24 14:00 Metoprolol Tartrate 25 Mg Tablet PO Q8HR [facility] Nicotine 1 patch 12/17/24 22:45 12/28/24 09:55 Nicotine (*Pbkc) 21 Mg Patch TRANSDERM 1 patch DAILY [facility] Administration Ondansetron HCl 4 mg 12/17/24 16:18 12/19/24 21:24 Ondansetron Inj 4 Mg/2 Ml Vial IV PUSH 4 mg Q4H PRN Administration Nausea Oxycodone HCl 5 mg 12/22/24 09:12 12/28/24 03:33 Oxycodone Hcl (*Crx) 5 Mg Tab Ir PO 5 mg Q4H PRN Administration Pain Rated 7-10 Sacubitril/Valsartan 1 tab 12/17/24 21:00 12/18/24 08:25 Sacubitril/Valsartan 24-26 Mg Tablet PO 1 tab Q12HR [facility] Administration Sertraline HCl 100 mg 12/18/24 09:00 12/28/24 08:59 Sertraline Hcl 50 Mg Tablet PO 100 mg DAILY REGINA Administration Radiology Results: ITS Impressions Lumbar Spine X-Ray 12/17/24 15:44 IMPRESSION: Anterior loss of volume of L1 which is most likely chronic. MRI evaluation advised. Otherwise, No acute osseous abnormality lumbar spine. Degenerative disc disease at the level of L4-L5. Venous Doppler Study 12/18/24 13:13 IMPRESSION: 1. No deep venous thrombosis. Abdomen Ultrasound 12/18/24 13:18 IMPRESSION: 1. Cholelithiasis. No evidence of acute cholecystitis. 2. Mildly dilated common duct. Renal Ultrasound 12/18/24 13:21 IMPRESSION: 1. Normal kidney sizes. No hydronephrosis. Lumbar Spine MRI 12/18/24 15:23 IMPRESSION: Limited examination secondary to motion artifact. No abnormal signal intensity or contrast enhancement is identified within the vertebral body of L1 to suggest acute traumatic injury. Within the visualized intervertebral disc spaces, moderate degenerative disease is noted, as detailed above. Duplex Scan Lower Extremity Artery 12/18/24 21:35 IMPRESSION: Abnormal peak systolic velocity and waveform morphology suggesting a popliteal or tibioperoneal trunk stenosis. Three-vessel blood flow into the right calf with single vessel blood flow into the right foot (on the submitted images) MRCP 12/21/24 08:48 IMPRESSION: 1. Study terminated at patient request prior to obtaining the normal complement of sequences including the MRCP images and which along with some motion artifact on the obtained sequences moderately limits evaluation. 2. Anasarca with small left and moderate-sized right pleural effusions, small amount of ascites and extensive body wall, as enteric and retroperitoneal edema. 3. Normal-appearing gallbladder with no evident cholelithiasis and with no intra or extrahepatic biliary ductal dilation. Sensitivity for tiny gallstones which were suggested on prior ultrasound is limited by motion artifact. 4. Cardiomegaly. Liver Biopsy Ultrasound 12/22/24 10:51 IMPRESSION: 1. Successful Ultrasound-guided random liver biopsy. Renal Biopsy Ultrasound 12/23/24 10:32 IMPRESSION: 1. Ultrasound-guided random left kidney core needle biopsy. Chest X-Ray 12/25/24 13:40 IMPRESSION: 1. Small left and small to moderate-sized right pleural effusion with associated bibasilar atelectasis and/or pneumonia. 2. Cardiomegaly. Head CT 12/25/24 17:06 IMPRESSION: No acute intracranial process. Labs Labs: Laboratory Results - last 24 hr 12/27/24 12/27/24 12/27/24 17:50 20:55 23:32 WBC RBC Hgb Hct MCV MCH MCHC RDW Plt Count MPV Immature Gran % (Auto) Neut % (Auto) Lymph % (Auto) [place] % (Auto) Eos % (Auto) Baso % (Auto) Lymph # (Auto) [place] # (Auto) Eos # (Auto) Baso # (Auto) Abs Immat Gran (auto) Absolute Neuts (auto) Absolute Nucleated RBC Band Neutrophils % Nucleated RBC % Platelet Estimate Anisocytosis Ovalocytes Randolph Cells Crenated Cell Schistocytes APTT 67.2 H Sodium Potassium Chloride Carbon Dioxide Anion Gap BUN Creatinine Estim Creat Clear Calc Estimated GFR Glucose POC Capillary Glucose 118 H 124 H Calcium Magnesium Total Bilirubin AST ALT Alkaline Phosphatase Total Protein Albumin 12/28/24 12/28/24 12/28/24 06:11 08:40 11:47 WBC 9.9 RBC 4.63 Hgb 11.4 L Hct 38.7 L MCV 83.6 MCH 24.6 L MCHC 29.5 L RDW 19.3 H Plt Count 239 MPV 9.6 Immature Gran % (Auto) 0.5 Neut % (Auto) 67.1 Lymph % (Auto) 20.7 [place] % (Auto) 7.3 Eos % (Auto) 3.8 Baso % (Auto) 0.6 Lymph # (Auto) 2.05 [place] # (Auto) 0.7 H Eos # (Auto) 0.4 H Baso # (Auto) 0.1 Abs Immat Gran (auto) 0.05 H Absolute Neuts (auto) 6.6 Absolute Nucleated RBC 0.030 H Band Neutrophils % Not Reportable Nucleated RBC % 0.3 H Platelet Estimate Adequate Anisocytosis 2+ Ovalocytes 1+ Randolph Cells 1+ Crenated Cell 1+ Schistocytes None seen APTT 112.0 H Sodium 133 L Potassium 3.8 Chloride 103 Carbon Dioxide 20 L Anion Gap 10 BUN 28 H D Creatinine 2.28 H Estim Creat Clear Calc 39 Estimated GFR 29 L Glucose 144 H POC Capillary Glucose 143 H 132 H Calcium 7.7 L Magnesium 1.8 Total Bilirubin 0.9 AST 65 H ALT 176 H Alkaline Phosphatase 208 H Total Protein 5.0 L Albumin 2.6 L 12/28/24 12:55 WBC RBC Hgb Hct MCV MCH MCHC RDW Plt Count MPV Immature Gran % (Auto) Neut % (Auto) Lymph % (Auto) [place] % (Auto) Eos % (Auto) Baso % (Auto) Lymph # (Auto) [place] # (Auto) Eos # (Auto) Baso # (Auto) Abs Immat Gran (auto) Absolute Neuts (auto) Absolute Nucleated RBC Band Neutrophils % Nucleated RBC % Platelet Estimate Anisocytosis Ovalocytes Randolph Cells Crenated Cell Schistocytes APTT 85.0 H Sodium Potassium Chloride Carbon Dioxide Anion Gap BUN Creatinine Estim Creat Clear Calc Estimated GFR Glucose POC Capillary Glucose Calcium Magnesium Total Bilirubin AST ALT Alkaline Phosphatase Total Protein Albumin Quality VTE Prophylaxis VTE prophylaxis: pharmacologic ordered
[2024-12-28 16:40] LABS: Glucose Point of Care 171 mg/dl (65-105)
[2024-12-28] MEDS: METOPROLOL TARTRATE 25 MG TABLET PO ×2 (17:13→21:03)
[2024-12-28 20:16] LABS: Glucose Point of Care 170 mg/dl (65-105)
[2024-12-28 20:24] LABS: Partial Thromboplastin Time 71.1 Seconds (22.3-36.8)
[2024-12-29] VITALS (13 sets, daily range): BP systolic 105–125; BP diastolic 75–93; PULSE 58–121; RESP 18–20; TEMP 36–36.5; O2SAT 97–100
[2024-12-29] MEDS: HEPARIN SOD/D5W 100 UNITS/ML 25,000 UNITS/250 ML BAG 15 UNITS IV CONT ×2 (01:26→15:00)
[2024-12-29] MEDS: METOPROLOL TARTRATE 25 MG TABLET PO ×3 (05:50→22:21)
[2024-12-29] MEDS: LEVOTHYROXINE SODIUM 125 MCG TABLET 250 MCG PO (05:50)
[2024-12-29 06:47] LABS: Basophils Absolute Auto 0.1 K/mm3 (0.0-0.1); Basophils Percent Auto 0.6 % (0.2-1.2); Eosinophils Absolute Auto 0.1 K/mm3 (0-0.3); Hematocrit 40.3 % (42.0-52.0); Hemoglobin 11.5 g/dL (14.0-18.0); Immature Granulocyte Absolute 0.06 K/mm3 (0.00-0.031); Immature Granulocyte Percent A 0.6 % (0-0.5); Lymphocytes Absolute Auto 1.94 K/mm3 (0.9-3.2); Lymphocytes Percent Auto 17.9 % (18.3-44.2); Mean Corpuscular HGB Conc 28.5 g/dl (32-36); Mean Corpuscular Hemoglobin 24.4 pg (26-34); Mean Corpuscular Volume 85.6 fl (80-100); Mean Platelet Volume 9.7 fl (7.4-10.4); Monocytes Percent Auto 8.8 % (2.6-8.5); Neutrophils Absolute Auto 7.7 K/mm3 (1.3-6.7); Neutrophils Percent Auto 71.1 % (45.5-73.1); Nucleated Red Blood Cells Perc 0.2 % (0.0-0.2); Platelet Count Result 269 k/mm3 (150-375); Red Blood Count 4.71 M/mm3 (4.6-6.20); Red Cell Distribution Width 19.5 % (11.5-14.5); White Blood Count 10.9 K/mm3 (4.5-10.0)
[2024-12-29 06:57] LABS: Alanine Aminotransferase 151 U/L (6-50); Albumin Level 2.8 g/dL (3.5-5.1); Alkaline Phosphatase 205 U/L (38-126); Anion Gap 11 mmol/L (4-12); Aspartate Amino Transferase 38 U/L (17-59); Bilirubin,Total 0.8 mg/dL (0.2-1.3); Blood Urea Nitrogen 34 mg/dL (9-20); Calcium 7.8 mg/dL (8.4-10.2); Carbon Dioxide 23 mmol/L (22-30); Chloride 100 mmol/L (98-107); Estimated CRCL calculation 31 ml/min; Estimated Glomerular Filt Rate 22; Glucose 159 mg/dL (65-110); Magnesium 1.8 mg/dL (1.6-2.3); Sodium 134 mmol/L (137-145)
[2024-12-29 07:24] LABS: Hypochromasia 1+; Platelet Estimate Adequate (Adequate)
[2024-12-29 07:25] LABS: Anisocytosis 1+; Burr Cells 2+; Ovalocytes 1+; Schistocytes Rare
[2024-12-29 07:32] LABS: Glucose Point of Care 162 mg/dl (65-105)
[2024-12-29] MEDS: ASPIRIN 81 MG CHEWABLE TABLET PO (08:27)
[2024-12-29] MEDS: SERTRALINE HCL 50 MG TABLET 100 MG PO (08:27)
[2024-12-29] MEDS: DOCUSATE SODIUM 100 MG CAPSULE PO (08:27)
[2024-12-29] MEDS: oxyCODONE HCL (*CRX) 5 MG TAB IR PO (08:28)
[2024-12-29] MEDS: NICOTINE (*PBKC) 21 MG PATCH 1 PATCH TRANSDERM (08:28)
[2024-12-29] MEDS: EZETIMIBE 10 MG TABLET PO (08:28)
[2024-12-29 10:43] LABS: Glucose Point of Care 163 mg/dl (65-105)
[2024-12-29 11:46] LABS: Glucose Point of Care 165 mg/dl (65-105)
[2024-12-29 12:04] LABS: Homocysteine 10.3 umol/L (<11.4)
--- NOTE | 2024-12-29 12:28 | P.PNIM_ITS ---
Progress Note: A&P Assessment and Plan (1) Altered mental status: Code(s): R41.82 - Altered mental status, unspecified Status: Acute Assessment and Plan: Overnight 12/25/2024. iv ativan prn. haldol prn for agitation labs stable or unremarkable. Ammonia negative ABG unremarkable CT head unremarkable. CXR showing small left and small-mod right pleural effusion with associated atelectasis and/or PNA UA +/-started empirically on ceftriaxone BCx (12/25) NGTD. UCx 12/25 negative EEG 12/28 - abnormal record due to the abscence of a normal background rhythm but without evidence of paroxysmal activity Stop Rocephin. Supportive treatment. Neurology consulted (2) Abnormal transaminases: Code(s): R74.8 - Abnormal levels of other serum enzymes Status: Acute Assessment and Plan: On admission, AST 215 and ALT 201. AP 340 with normal bili. Levels normal earlier this month. Hepatitis panel negative. Abd US showing cholelithiasis and mildly dilated CBD. Liver is normal in appearance. lipitor held. Repeat levels on 12/20 much worse with AST 1539, ALT 1066, AP 479, normal bili. Repeated CMP showed liver enzymes are trending down Lactic acid 1.1. Acet level <10 Possible due to congestion due to heart failure Consider autoimmune with + IV fluids stopped. GI consulted and appreciate their input. AST better. Patient was able to complete some of the MRCP. This showed anasarca, small left and moderate size right pleural effusion, small amount of ascites, extensive body edema and cardiomegaly. He had a normal appearing gallbladder with no evidence of cholelithiasis no intra or extrahepatic biliary ductal dilatation. Sensitivity was limited. Status post liver biopsy 12/22/2024: congestive hepatopathy and congestive hepatic fibrosis score 1. LFTs improving. (3) Acute kidney injury: Code(s): N17.9 - Acute kidney failure, unspecified Status: Acute Assessment and Plan: Patient presents with weakness and may have underlying PNA. Cr on admission 4.3. Baseline Cr 2.1-2.9 range. He was started on IV fluids. Urine eos negative. Eve 42. Total CK 371. Urine prot/Cr 4.7gm consistent with nephrotic syndrome. Complement normal. Hx of + 1:640. Renal US normal. Nephrology consulted and appreciate their input. Cryoglobulin pending. Phos 6.5. Creatinine is trending up, Phos remains elevated. HD catheter placement 12/22/2024 He has been started on hemodialysis. 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 50-60% tubular atrophy and interstitial fibrosis. Last dialysis 12/27/2024. Appreciate nephrolog input (4) Pneumonia: Code(s): J18.9 - Pneumonia, unspecified organism Status: Acute Assessment and Plan: Patient presents with weakness after having cold and cough symptoms for 3 weeks. No benefit after 2 Z-packs. CXR showing bibasilar infiltrates. No fevers or hypoxia. WBC 12K. He was started on Rocephin and Doxycycline. WBC normal now. BCx NGTD. MRSA screen negative. Urine Ag pending. Sputum Cx growing MSSA and yeast. Abx to complete a 7 day course. Rocephin started for possible UTI but UCx negative. Follow off abx (5) Heart failure with mildly reduced ejection fraction: Code(s): I50.22 - Chronic systolic (congestive) heart failure Status: Acute Assessment and Plan: Echo showing severely reduced systolic fxn with EF 25-30% with diastolic dysfunction, mild valve disease and moderate pulmonary HTN. BNP >30K. CXR showing CMG, bibasilar infiltrates and small pleural effusions. Entresto and finerenone on hold. Diuretics not listed on home med list. Eve 42 so suspect good renal perfusion. Hold Toprol XL. Monitor UOP, renal fxn, daily weights and fluid balance Hold Entresto because of worsening kidney function (6) Atrial flutter with rapid ventricular response: Code(s): I48.92 - Unspecified atrial flutter Status: Acute Assessment and Plan: new onset atrial fibrillation. On metoprolol. Eliquis when able On heparin drip for now. (7) Type 2 diabetes mellitus with hyperglycemia, with long-term current use of insulin: Code(s): E11.65 - Type 2 diabetes mellitus with hyperglycemia; Z79.4 - senior care (current) use of insulin Status: Acute Assessment and Plan: A1c 7%. The patient's blood glucose was reviewed Patient was on an insulin pump at home. Concern patient was unable to handle his pump here so this was held. Glucose remains well controlled off the insulin pump. He is eating some Continue AccuCheks covering with sliding scale. Hypoglycemia protocol available as needed. Continue to monitor (8) Chronic kidney disease, stage 4 (severe): Code(s): N18.4 - Chronic kidney disease, stage 4 (severe) Status: Acute Assessment and Plan: As above (9) Status post above-knee amputation of left lower extremity: Code(s): Z89.612 - Acquired absence of left leg above knee Status: Acute Assessment and Plan: Patient with known PAD. Venous doppler RLE negative for DVT. Arterial doppler RLE suggestive of a popliteal or tibioperoneal trunk stenosis. There is three-vessel blood flow into the right calf with single vessel blood flow into the right foot. Continue Zetia and ASA. Resume Lipitor when able. Plan # Hypothyroidism: Review of Endocrine note from 11/12 showing he was to skip the Friday Synthroid dose. TSH is 46.4. Free T4 is low-normal at 0.96. Total T3 is 0.5. Patient is on 250 mcg daily of Synthroid. Suspect the skipped dose has resulted in the change in his thyroid panel. Will adjust to 250mcg daily except 125mcg on Sundays. # Tobacco dependence: Patient was educated about the benefits of smoking cessation # urinary retention status post cystoscopy with passive dilation of mild bulbar narrowing. Complex Hernandez catheter placement with 16 Bengali coude on 12/20/2024. Maintain Hernandez catheter until improvement in volume status and mobility. # Low back pain - Lumbar MRI performed but no acute finding seen on limited imaging due to motion artifact. # DVT prophylaxis - Heparin # Code status - full Subjective Date/time seen: 12/29/24 12:28 Interval history: 64yo male smoker with hx of TIA, CHF, HTN CKD, DM with PN, status post left [id number] amputation related to infection Charcot foot, and hypothyroidism who presented to the emergency department via private vehicle with complaints of weakness and overall not feeling well. Resuming care. Chart reviewed. Patient is alert but confused. He is in restraints. Review of Systems Review of Systems: ROS unobtainable: Yes unobtainable due to mental status Exam Narrative: AF 96.9 123/86 121 18 100% RA Gen - confused, in restraints Neck - right IJ HD catheter secured. Chest - coarse BS. CV - RRR S1/S2 Abd - Soft, obese, NT, flank edema much improved - Hernandez secured draining martinez colored urine. Scrotum size has improved. Ext - Left AKA. improved RLE pedal edema Psych - Nml mood and affect Skin - Warm and dry. multiple wounds bilateral hands in varius stages of healing Objective Data Vital Signs Vital Signs: Vital Signs - 24 hr 12/28/24 12:59 12/28/24 14:00 12/28/24 17:13 Temperature 98.7 F Pulse Rate 84 91 Respiratory Rate 20 Blood Pressure 112/84 135/73 Pulse Oximetry 98 Oxygen Delivery Fraction of Inspired Oxygen 12/28/24 20:00 12/28/24 20:00 12/28/24 20:23 Temperature 97.0 F L Pulse Rate 125 H 125 H Respiratory Rate 20 Blood Pressure 123/89 Pulse Oximetry 100 Oxygen Delivery Room Air Fraction of Inspired Oxygen 0 12/28/24 21:03 12/29/24 00:00 12/29/24 04:00 Temperature Pulse Rate 118 H 105 H 106 H Respiratory Rate Blood Pressure Pulse Oximetry Oxygen Delivery Fraction of Inspired Oxygen 12/29/24 05:49 12/29/24 05:50 12/29/24 08:00 Temperature 97.7 F Pulse Rate 100 108 H 104 H Respiratory Rate 18 Blood Pressure 105/75 Pulse Oximetry 100 Oxygen Delivery Fraction of Inspired Oxygen 12/29/24 10:45 Temperature 96.9 F L Pulse Rate 121 H Respiratory Rate 18 Blood Pressure 123/86 Pulse Oximetry 100 Oxygen Delivery Fraction of Inspired Oxygen Intake/Output Intake/Output: Intake & Output 12/26/24 12/27/24 12/28/24 12/29/24 23:59 23:59 23:59 23:59 Intake Total 2540 490 3267.7 Output Total 500 1900 800 150 Balance 2040 -1410 2467.7 -150 Meds/Results Medications: Active Medications Generic Name Dose Route Start Last Admin Trade Name Freq PRN Reason Stop Dose Admin Acetaminophen 650 mg 12/17/24 16:18 12/18/24 20:54 Acetaminophen 325 Mg Tablet PO 650 mg Q4H PRN Administration Mild Pain (1-3) or Fever Hydrocodone Bitart/Acetaminophen 1 tab 12/17/24 19:37 12/19/24 15:50 Hydrocodone/Acetaminophen (*Crx) 5-325 Mg Tablet PO 1 tab Q8H PRN Administration pain 4-6 Aspirin 81 mg 12/20/24 08:00 12/29/24 08:27 Aspirin 81 Mg Chewable Tablet PO 81 mg DAILY@0800 REGINA Administration Calcium Carbonate 200 mg 12/18/24 22:39 Calcium Carbonate (Tums) 500 Mg (200 Mg Elemental) PO Q6H PRN Indigestion Dextrose 12.5 gm 12/17/24 22:39 Dextrose 50% 25 Gm/50 Ml Syringe IV PUSH PRN PRN Hypoglycemia Protocol Diphenhydramine HCl 12.5 mg 12/18/24 14:23 12/24/24 19:41 Diphenhydramine Hcl Elixir 12.5 Mg/5 Ml Udc PO 12.5 mg Q6H PRN Administration Itching Docusate Sodium 100 mg 12/23/24 21:00 12/29/24 08:27 Docusate Sodium 100 Mg Capsule PO 100 mg Q12HR REGINA Administration Ezetimibe 10 mg 12/18/24 09:00 12/29/24 08:28 Ezetimibe 10 Mg Tablet PO 10 mg DAILY REGINA Administration Glucagon 1 mg 12/17/24 22:39 Glucagon For Inj 1 Mg Vial IM PRN PRN Hypoglycemia Protocol Glucose 15 gm 12/17/24 22:39 Glucose Oral Gel 15 Gm Of Glucse In 37.5 Gm Tube PO PRN PRN Hypoglycemia Protocol Haloperidol Lactate 1 mg 12/25/24 09:39 12/26/24 20:49 Haloperidol Lactate 5 Mg/Ml Vial IM 1 mg Q6H PRN Administration pulling at lines Heparin Sodium (Porcine) 7,500 units 12/27/24 14:06 Heparin Sodium 5,000 Units/Ml Vial IV PUSH PRN PRN aPTT less than 55 seconds Heparin Sodium (Porcine) 3,500 units 12/27/24 14:06 12/28/24 00:06 Heparin Sodium 5,000 Units/Ml Vial IV PUSH 3,500 units PRN PRN Administration aPTT 55 - 70 seconds Dextrose 1,000 mls @ 100 mls/hr 12/17/24 22:39 Dextrose 5% 1,000 Ml IVPB PRN PRN Hypoglycemia Protocol Albumin Human 50 mls @ 999 mls/hr 12/22/24 05:43 Albutein IVPB 01/21/25 05:42 Q10M PRN HYPOTENSION Ceftriaxone Sodium 1 gm in 50 mls @ 100 mls/hr 12/27/24 12:00 12/29/24 12:15 Rocephin 1 Gm/Ns 50 Ml IVPB 100 mls/hr Q24H REGINA Administration Heparin Sodium/Dextrose 25,000 units in 250 mls @ 15 mls/hr 12/27/24 14:10 12/29/24 01:26 Heparin Sodium/D5w 100 Units/Ml IV CONT 1,500 units/hr .[id number] REGINA 15 mls/hr Administration Protocol 1,500 UNITS/HR Insulin Aspart 2 - 5 units 12/29/24 12:00 12/29/24 12:12 Insulin Aspart (*Bkc) 100 Units/Ml SUB-Q Not Given TIDWM [facility] Protocol Insulin Aspart 2 - 5 units 12/29/24 21:00 Insulin Aspart (*Bkc) 100 Units/Ml SUB-Q HS [facility] Protocol Levothyroxine Sodium 250 mcg 12/21/24 06:30 12/29/24 05:50 Levothyroxine Sodium 125 Mcg Tablet PO 250 mcg [id number] [facility] Administration Levothyroxine Sodium 125 mcg 12/26/24 06:30 12/26/24 08:18 Levothyroxine Sodium 125 Mcg Tablet PO Not Given Mitchell@0630 REGINA Lorazepam 0.5 mg 12/27/24 18:28 12/28/24 21:04 Lorazepam Inj (*Crx) 2 Mg/Ml Vial IV PUSH 0.5 mg Q6H PRN Administration Anxiety Metoprolol Tartrate 25 mg 12/28/24 14:00 12/29/24 05:50 Metoprolol Tartrate 25 Mg Tablet PO 25 mg Q8HR [facility] Administration Nicotine 1 patch 12/17/24 22:45 12/29/24 08:28 Nicotine (*Pbkc) 21 Mg Patch TRANSDERM 1 patch DAILY [facility] Administration Ondansetron HCl 4 mg 12/17/24 16:18 12/19/24 21:24 Ondansetron Inj 4 Mg/2 Ml Vial IV PUSH 4 mg Q4H PRN Administration Nausea Oxycodone HCl 5 mg 12/22/24 09:12 12/29/24 08:28 Oxycodone Hcl (*Crx) 5 Mg Tab Ir PO 5 mg Q4H PRN Administration Pain Rated 7-10 Sacubitril/Valsartan 1 tab 12/17/24 21:00 12/18/24 08:25 Sacubitril/Valsartan 24-26 Mg Tablet PO 1 tab Q12HR [facility] Administration Sertraline HCl 100 mg 12/18/24 09:00 12/29/24 08:27 Sertraline Hcl 50 Mg Tablet PO 100 mg DAILY REGINA Administration Radiology Results: ITS Impressions Lumbar Spine X-Ray 12/17/24 15:44 IMPRESSION: Anterior loss of volume of L1 which is most likely chronic. MRI evaluation advised. Otherwise, No acute osseous abnormality lumbar spine. Degenerative disc disease at the level of L4-L5. Venous Doppler Study 12/18/24 13:13 IMPRESSION: 1. No deep venous thrombosis. Abdomen Ultrasound 12/18/24 13:18 IMPRESSION: 1. Cholelithiasis. No evidence of acute cholecystitis. 2. Mildly dilated common duct. Renal Ultrasound 12/18/24 13:21 IMPRESSION: 1. Normal kidney sizes. No hydronephrosis. Lumbar Spine MRI 12/18/24 15:23 IMPRESSION: Limited examination secondary to motion artifact. No abnormal signal intensity or contrast enhancement is identified within the vertebral body of L1 to suggest acute traumatic injury. Within the visualized intervertebral disc spaces, moderate degenerative disease is noted, as detailed above. Duplex Scan Lower Extremity Artery 12/18/24 21:35 IMPRESSION: Abnormal peak systolic velocity and waveform morphology suggesting a popliteal or tibioperoneal trunk stenosis. Three-vessel blood flow into the right calf with single vessel blood flow into the right foot (on the submitted images) MRCP 12/21/24 08:48 IMPRESSION: 1. Study terminated at patient request prior to obtaining the normal complement of sequences including the MRCP images and which along with some motion artifact on the obtained sequences moderately limits evaluation. 2. Anasarca with small left and moderate-sized right pleural effusions, small amount of ascites and extensive body wall, as enteric and retroperitoneal edema. 3. Normal-appearing gallbladder with no evident cholelithiasis and with no intra or extrahepatic biliary ductal dilation. Sensitivity for tiny gallstones which were suggested on prior ultrasound is limited by motion artifact. 4. Cardiomegaly. Liver Biopsy Ultrasound 12/22/24 10:51 IMPRESSION: 1. Successful Ultrasound-guided random liver biopsy. Renal Biopsy Ultrasound 12/23/24 10:32 IMPRESSION: 1. Ultrasound-guided random left kidney core needle biopsy. Chest X-Ray 12/25/24 13:40 IMPRESSION: 1. Small left and small to moderate-sized right pleural effusion with associated bibasilar atelectasis and/or pneumonia. 2. Cardiomegaly. Head CT 12/25/24 17:06 IMPRESSION: No acute intracranial process. Labs Labs: Laboratory Results - last 24 hr 12/27/24 12/28/24 12/28/24 12:38 12:55 16:37 WBC RBC Hgb Hct MCV MCH MCHC RDW Plt Count MPV Immature Gran % (Auto) Neut % (Auto) Lymph % (Auto) Lynn % (Auto) Eos % (Auto) Baso % (Auto) Lymph # (Auto) Lynn # (Auto) Eos # (Auto) Baso # (Auto) Abs Immat Gran (auto) Absolute Neuts (auto) Absolute Nucleated RBC Band Neutrophils % Nucleated RBC % Platelet Estimate Hypochromasia Anisocytosis Ovalocytes [place]ixa Cells Schistocytes APTT 85.0 H Sodium Potassium Chloride Carbon Dioxide Anion Gap BUN Creatinine Estim Creat Clear Calc Estimated GFR Glucose POC Capillary Glucose 171 H Calcium Magnesium Total Bilirubin AST ALT Alkaline Phosphatase Total Protein Albumin Homocysteine 10.3 12/28/24 12/28/24 12/29/24 19:41 20:06 06:24 WBC 10.9 H RBC 4.71 Hgb 11.5 L Hct 40.3 L MCV 85.6 MCH 24.4 L MCHC 28.5 L RDW 19.5 H Plt Count 269 MPV 9.7 Immature Gran % (Auto) 0.6 H Neut % (Auto) 71.1 Lymph % (Auto) 17.9 L Lynn % (Auto) 8.8 H Eos % (Auto) 1.0 Baso % (Auto) 0.6 Lymph # (Auto) 1.94 Lynn # (Auto) 1.0 H Eos # (Auto) 0.1 Baso # (Auto) 0.1 Abs Immat Gran (auto) 0.06 H Absolute Neuts (auto) 7.7 H Absolute Nucleated RBC 0.020 H Band Neutrophils % Not Reportable Nucleated RBC % 0.2 Platelet Estimate Adequate Hypochromasia 1+ Anisocytosis 1+ Ovalocytes 1+ Deary Cells 2+ Schistocytes Rare APTT 71.1 H Sodium 134 L Potassium 4.0 Chloride 100 Carbon Dioxide 23 Anion Gap 11 BUN 34 H Creatinine 2.88 H Estim Creat Clear Calc 31 Estimated GFR 22 L Glucose 159 H POC Capillary Glucose 170 H Calcium 7.8 L Magnesium 1.8 Total Bilirubin 0.8 AST 38 ALT 151 H Alkaline Phosphatase 205 H Total Protein 6.0 L Albumin 2.8 L Homocysteine 12/29/24 12/29/24 12/29/24 07:29 10:39 11:32 WBC RBC Hgb Hct MCV MCH MCHC RDW Plt Count MPV Immature Gran % (Auto) Neut % (Auto) Lymph % (Auto) Lynn % (Auto) Eos % (Auto) Baso % (Auto) Lymph # (Auto) Lynn # (Auto) Eos # (Auto) Baso # (Auto) Abs Immat Gran (auto) Absolute Neuts (auto) Absolute Nucleated RBC Band Neutrophils % Nucleated RBC % Platelet Estimate Hypochromasia Anisocytosis Ovalocytes [place] Cells Schistocytes APTT Sodium Potassium Chloride Carbon Dioxide Anion Gap BUN Creatinine Estim Creat Clear Calc Estimated GFR Glucose POC Capillary Glucose 162 H 163 H 165 H Calcium Magnesium Total Bilirubin AST ALT Alkaline Phosphatase Total Protein Albumin Homocysteine
--- NOTE | 2024-12-29 14:15 | P.PNNP_ITS ---
Progress Note: A&P Assessment and Plan (1) Acute kidney injury: Code(s): N17.9 - Acute kidney failure, unspecified Status: Acute Assessment and Plan: * as noted on admission * evaluation to date noted: * renal u/s normal * urine eosinophils negative * nephrotic range proteinuria * prerenal urine electrolytes * CPK mildly elevated (but not enought to affect kidney function) * further serologies pending * outpatient evaluation noted - normal complements but hematuria with positive * initiated [facility]/HD on 12/21 * s/p RENAL BIOPSY (on 12/22) with findings noted: * diabetic nephropathy * significant interstitial fibrosis/tubular atrophy noted as well * fluctuating urine output noted * however, BUN + creatinine continue to rise without dialytic support * last HD on 12/27 - trial of holding HD....follow labs and UOP (2) Stage 3b chronic kidney disease: Code(s): N18.32 - Chronic kidney disease, stage 3b Status: Chronic Assessment and Plan: * baseline creatinine runs around 1.7 - 2.3mg/dl * secondary to diabetes (as noted by renal biopsy) and hypertension (3) Pneumonia: Code(s): J18.9 - Pneumonia, unspecified organism Status: Acute Assessment and Plan: * admission CXR with bibasilar infiltrates * completed course of antibiotics * respiratory status stable (4) Heart failure with mildly reduced ejection fraction: Code(s): I50.22 - Chronic systolic (congestive) heart failure Status: Acute Assessment and Plan: * known history * repeat Echo (12/18) noted: * severely reduced systolic function with EF 25-30% * diastolic dysfunction * mild valvular disease * moderate pulmonary hypertension * CXR with cardiomegaly, bibasilar infiltrates and small pleural effusions * Entresto and diuretics on hold given #1 * removing fluid with dialysis * not opposed to re-start entresto if necessary * Cardiology following (5) Encephalopathy: Code(s): G93.40 - Encephalopathy, unspecified Status: Acute Assessment and Plan: * still with intermittent confusion * doubt uremia playing a role given improvement in BUN * testing to date noted: * ammonia level is okay * B12 and folate are okay * WBC okay and no fevers so unlikely to be related to infection * aodium good * magnesium and calcium stable * CT of brain normal * ABGs reasonable * Neurology recommendations noted (6) Atrial flutter with rapid ventricular response: Code(s): I48.92 - Unspecified atrial flutter Status: Acute Assessment and Plan: * rate control strategy * on heparin gtt for anticoagulation (7) Transaminitis: Code(s): R74.01 - Elevation of levels of liver transaminase levels Status: Deleted Assessment and Plan: * normal earlier in November 2024 * hepatitis panel negative * abd US showing cholelithiasis and mildly dilated CBD; liver is normal in appearance * holding statin * liver biopsy (on 12/21) noted: * ongestive hepatopathy and congestive hepatic fibrosis * improving (8) Anemia: Code(s): D64.9 - Anemia, unspecified Status: Acute Assessment and Plan: * related to ELEANOR, CKD, and acute illness * Epogen with HD as needed * follow trend of H/H (9) Peripheral vascular disease: Code(s): I73.9 - Peripheral vascular disease, unspecified Status: Acute Assessment and Plan: * known history * on zetia but statin on hold given elevated LFTs * complicated by ongoing smoking * arterial dopplers noted (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 L Subjective Date/time seen: 12/29/24 14:15 Interval history: Follow-up for acute kidney injury/acute renal failure on chronic kidney disease. Remains awake/alert but confusion persists; fluctuating urine output noted and renal function/creatinine continues to rise in between dialysis treatments; no other acute complaints voiced at the time of my visit. Exam 2 Narrative: General: elderly male in NAD but confused Heart: tachycardic; normal S1 and S2; no rub Lungs: coarse breath sounds Abdomen: obese but soft, nontender, nondistended, positive bowel sounds Extremities: no cyanosis or clubbing; 1+ edema in RLE; s/p left AKA Skin: no rash Objective Data Vital Signs Vital Signs: Vital Signs Temp Pulse Resp BP Pulse Ox O2 Del Method FiO2 12/29/24 14:00 96.8 F L 58 L 18 120/77 100 12/29/24 12:00 106 H 12/29/24 10:45 96.9 F L 121 H 18 123/86 100 12/29/24 08:00 104 H 12/29/24 05:50 108 H 12/29/24 05:49 97.7 F 100 18 105/75 100 12/29/24 04:00 106 H 12/29/24 00:00 105 H 12/28/24 21:03 118 H 12/28/24 20:23 97.0 F L 125 H 20 123/89 100 12/28/24 20:00 125 H 12/28/24 20:00 Room Air 0 Intake/Output Intake/Output: Intake & Output 12/26/24 12/27/24 12/28/24 12/29/24 23:59 23:59 23:59 23:59 Intake Total 2540 490 3267.7 303.5 Output Total 500 1900 800 225 Balance 2040 -1410 2467.7 78.5 Meds/Results Medications: Active Medications Generic Name Dose Route Start Last Admin Trade Name Freq PRN Reason Stop Dose Admin Acetaminophen 650 mg 12/17/24 16:18 12/18/24 20:54 Acetaminophen 325 Mg Tablet PO 650 mg Q4H PRN Administration Mild Pain (1-3) or Fever Hydrocodone Bitart/Acetaminophen 1 tab 12/17/24 19:37 12/19/24 15:50 Hydrocodone/Acetaminophen (*Crx) 5-325 Mg Tablet PO 1 tab Q8H PRN Administration pain 4-6 Aspirin 81 mg 12/20/24 08:00 12/29/24 08:27 Aspirin 81 Mg Chewable Tablet PO 81 mg DAILY@0800 [facility] Administration Calcium Carbonate 200 mg 12/18/24 22:39 Calcium Carbonate (Tums) 500 Mg (200 Mg Elemental) PO Q6H PRN Indigestion Dextrose 12.5 gm 12/17/24 22:39 Dextrose 50% 25 Gm/50 Ml Syringe IV PUSH PRN PRN Hypoglycemia Protocol Diphenhydramine HCl 12.5 mg 12/18/24 14:23 12/24/24 19:41 Diphenhydramine Hcl Elixir 12.5 Mg/5 Ml Udc PO 12.5 mg Q6H PRN Administration Itching Docusate Sodium 100 mg 12/23/24 21:00 12/29/24 08:27 Docusate Sodium 100 Mg Capsule PO 100 mg Q12HR REGINA Administration Ezetimibe 10 mg 12/18/24 09:00 12/29/24 08:28 Ezetimibe 10 Mg Tablet PO 10 mg DAILY REGINA Administration Glucagon 1 mg 12/17/24 22:39 Glucagon For Inj 1 Mg Vial IM PRN PRN Hypoglycemia Protocol Glucose 15 gm 12/17/24 22:39 Glucose Oral Gel 15 Gm Of Glucse In 37.5 Gm Tube PO PRN PRN Hypoglycemia Protocol Haloperidol Lactate 1 mg 12/25/24 09:39 12/26/24 20:49 Haloperidol Lactate 5 Mg/Ml Vial IM 1 mg Q6H PRN Administration pulling at lines Heparin Sodium (Porcine) 7,500 units 12/27/24 14:06 Heparin Sodium 5,000 Units/Ml Vial IV PUSH PRN PRN aPTT less than 55 seconds Heparin Sodium (Porcine) 3,500 units 12/27/24 14:06 12/28/24 00:06 Heparin Sodium 5,000 Units/Ml Vial IV PUSH 3,500 units PRN PRN Administration aPTT 55 - 70 seconds Dextrose 1,000 mls @ 100 mls/hr 12/17/24 22:39 Dextrose 5% 1,000 Ml IVPB PRN PRN Hypoglycemia Protocol Albumin Human 50 mls @ 999 mls/hr 12/22/24 05:43 Albutein IVPB 01/21/25 05:42 Q10M PRN HYPOTENSION Ceftriaxone Sodium 1 gm in 50 mls @ 100 mls/hr 12/27/24 12:00 12/29/24 12:15 Rocephin 1 Gm/Ns 50 Ml IVPB 100 mls/hr Q24H REGINA Administration Heparin Sodium/Dextrose 25,000 units in 250 mls @ 15 mls/hr 12/27/24 14:10 12/29/24 15:00 Heparin Sodium/D5w 100 Units/Ml IV CONT 1,500 units/hr .[id number] REGINA 15 mls/hr Administration Protocol 1,500 UNITS/HR Insulin Aspart 2 - 5 units 12/29/24 12:00 12/29/24 16:33 Insulin Aspart (*Bkc) 100 Units/Ml SUB-Q Not Given TIDWM [facility] Protocol Insulin Aspart 2 - 5 units 12/29/24 21:00 Insulin Aspart (*Bkc) 100 Units/Ml SUB-Q HS [facility] Protocol Levothyroxine Sodium 250 mcg 12/21/24 06:30 12/29/24 05:50 Levothyroxine Sodium 125 Mcg Tablet PO 250 mcg [email or web address] RE[facility] Administration Levothyroxine Sodium 125 mcg 12/26/24 06:30 12/26/24 08:18 Levothyroxine Sodium 125 Mcg Tablet PO Not Given [email or web address]@[id number] REGIN[facility] Lorazepam 0.5 mg 12/27/24 18:28 12/28/24 21:04 Lorazepam Inj (*Crx) 2 Mg/Ml Vial IV PUSH 0.5 mg Q6H PRN Administration Anxiety Metoprolol Tartrate 25 mg 12/28/24 14:00 12/29/24 14:59 Metoprolol Tartrate 25 Mg Tablet PO 25 mg Q8HR REGINA Administration Nicotine 1 patch 12/17/24 22:45 12/29/24 08:28 Nicotine (*Pbkc) 21 Mg Patch TRANSDERM 1 patch DAILY REGINA Administration Ondansetron HCl 4 mg 12/17/24 16:18 12/19/24 21:24 Ondansetron Inj 4 Mg/2 Ml Vial IV PUSH 4 mg Q4H PRN Administration Nausea Oxycodone HCl 5 mg 12/22/24 09:12 12/29/24 08:28 Oxycodone Hcl (*Crx) 5 Mg Tab Ir PO 5 mg Q4H PRN Administration Pain Rated 7-10 Sacubitril/Valsartan 1 tab 12/17/24 21:00 12/18/24 08:25 Sacubitril/Valsartan 24-26 Mg Tablet PO 1 tab Q12HR REGINA Administration Sertraline HCl 100 mg 12/18/24 09:00 12/29/24 08:27 Sertraline Hcl 50 Mg Tablet PO 100 mg DAILY REGINA Administration Radiology Results: ITS Impressions Lumbar Spine X-Ray 12/17/24 15:44 IMPRESSION: Anterior loss of volume of L1 which is most likely chronic. MRI evaluation advised. Otherwise, No acute osseous abnormality lumbar spine. Degenerative disc disease at the level of L4-L5. Venous Doppler Study 12/18/24 13:13 IMPRESSION: 1. No deep venous thrombosis. Abdomen Ultrasound 12/18/24 13:18 IMPRESSION: 1. Cholelithiasis. No evidence of acute cholecystitis. 2. Mildly dilated common duct. Renal Ultrasound 12/18/24 13:21 IMPRESSION: 1. Normal kidney sizes. No hydronephrosis. Lumbar Spine MRI 12/18/24 15:23 IMPRESSION: Limited examination secondary to motion artifact. No abnormal signal intensity or contrast enhancement is identified within the vertebral body of L1 to suggest acute traumatic injury. Within the visualized intervertebral disc spaces, moderate degenerative disease is noted, as detailed above. Duplex Scan Lower Extremity Artery 12/18/24 21:35 IMPRESSION: Abnormal peak systolic velocity and waveform morphology suggesting a popliteal or tibioperoneal trunk stenosis. Three-vessel blood flow into the right calf with single vessel blood flow into the right foot (on the submitted images) MRCP 12/21/24 08:48 IMPRESSION: 1. Study terminated at patient request prior to obtaining the normal complement of sequences including the MRCP images and which along with some motion artifact on the obtained sequences moderately limits evaluation. 2. Anasarca with small left and moderate-sized right pleural effusions, small amount of ascites and extensive body wall, as enteric and retroperitoneal edema. 3. Normal-appearing gallbladder with no evident cholelithiasis and with no intra or extrahepatic biliary ductal dilation. Sensitivity for tiny gallstones which were suggested on prior ultrasound is limited by motion artifact. 4. Cardiomegaly. Liver Biopsy Ultrasound 12/22/24 10:51 IMPRESSION: 1. Successful Ultrasound-guided random liver biopsy. Renal Biopsy Ultrasound 12/23/24 10:32 IMPRESSION: 1. Ultrasound-guided random left kidney core needle biopsy. Chest X-Ray 12/25/24 13:40 IMPRESSION: 1. Small left and small to moderate-sized right pleural effusion with associated bibasilar atelectasis and/or pneumonia. 2. Cardiomegaly. Head CT 12/25/24 17:06 IMPRESSION: No acute intracranial process. Labs Labs: Laboratory Tests 12/29/24 06:24 12/29/24 06:24 Calcium 7.8 L Magnesium 1.8 Total Bilirubin 0.8 AST 38 ALT 151 H Alkaline Phosphatase 205 H Total Protein 6.0 L Albumin 2.8 L
--- NOTE | 2024-12-29 15:22 | PCPTNOTE ---
Attempted PT evaluation. Pt agreed to working with therapy, but would drift off to sleep when asked to initiate movement/speaking to pt. Pt not safe to participate with OOB activity at this time. Nursing aware.
[2024-12-29 16:29] LABS: Glucose Point of Care 145 mg/dl (65-105)
[2024-12-29] MEDS: LORazepam INJ (*CRX) 2 MG/ML VIAL 0.5 MG IV PUSH (20:27)
[2024-12-29 20:31] LABS: Glucose Point of Care 140 mg/dl (65-105)
[2024-12-29 20:59] LABS: Partial Thromboplastin Time 73.1 Seconds (22.3-36.8)
[2024-12-30 00:36] VITALS: PULSE 113
[2024-12-30] MEDS: LORazepam INJ (*CRX) 2 MG/ML VIAL 0.5 MG IV PUSH ×2 (02:23→09:32)
[2024-12-30 05:09] VITALS: PULSE 117
[2024-12-30 05:28] VITALS: BP 122/85; PULSE 121; RESP 20; TEMP 36.5; O2SAT 100
[2024-12-30 06:22] LABS: Basophils Absolute Auto 0.1 K/mm3 (0.0-0.1); Basophils Percent Auto 0.8 % (0.2-1.2); Eosinophils Absolute Auto 0.1 K/mm3 (0-0.3); Eosinophils Percent Auto 1.3 % (0-4.4); Hematocrit 38.9 % (42.0-52.0); Hemoglobin 11.2 g/dL (14.0-18.0); Immature Granulocyte Absolute 0.03 K/mm3 (0.00-0.031); Immature Granulocyte Percent A 0.3 % (0-0.5); Lymphocytes Absolute Auto 2.68 K/mm3 (0.9-3.2); Lymphocytes Percent Auto 29.8 % (18.3-44.2); Mean Corpuscular HGB Conc 28.8 g/dl (32-36); Mean Corpuscular Hemoglobin 24.5 pg (26-34); Mean Corpuscular Volume 85.1 fl (80-100); Mean Platelet Volume 10.4 fl (7.4-10.4); Monocytes Percent Auto 11.5 % (2.6-8.5); Neutrophils Absolute Auto 5.1 K/mm3 (1.3-6.7); Neutrophils Percent Auto 56.3 % (45.5-73.1); Nucleated Red Blood Cells Perc 0.4 % (0.0-0.2); Platelet Count Result 303 k/mm3 (150-375); Red Blood Count 4.57 M/mm3 (4.6-6.20); Red Cell Distribution Width 19.1 % (11.5-14.5)
[2024-12-30 06:48] LABS: Alanine Aminotransferase 130 U/L (6-50); Albumin Level 2.8 g/dL (3.5-5.1); Alkaline Phosphatase 187 U/L (38-126); Anion Gap 10 mmol/L (4-12); Aspartate Amino Transferase 49 U/L (17-59); Bilirubin,Total 0.9 mg/dL (0.2-1.3); Blood Urea Nitrogen 40 mg/dL (9-20); Calcium 7.8 mg/dL (8.4-10.2); Carbon Dioxide 23 mmol/L (22-30); Chloride 102 mmol/L (98-107); Estimated CRCL calculation 24 ml/min; Estimated Glomerular Filt Rate 19; Glucose 112 mg/dL (65-110); Magnesium 1.9 mg/dL (1.6-2.3); Potassium 4.2 mmol/L (3.4-5.0); Sodium 135 mmol/L (137-145)
[2024-12-30 07:14] LABS: Anisocytosis 1+; Burr Cells 1+; Crenated RBC 1+; Ovalocytes 1+; Platelet Estimate Adequate (Adequate); Schistocytes None Seen; Tear Drop Cells 1+
[2024-12-30 07:51] LABS: Glucose Point of Care 107 mg/dl (65-105)
[2024-12-30] MEDS: HEPARIN SOD/D5W 100 UNITS/ML 25,000 UNITS/250 ML BAG 15 UNITS IV CONT (08:50)
[2024-12-30] MEDS: ASPIRIN 81 MG CHEWABLE TABLET PO (08:54)
[2024-12-30] MEDS: SERTRALINE HCL 50 MG TABLET 100 MG PO (08:54)
[2024-12-30] MEDS: EZETIMIBE 10 MG TABLET PO (08:54)
[2024-12-30] MEDS: DOCUSATE SODIUM 100 MG CAPSULE PO ×2 (08:55→20:33)
--- NOTE | 2024-12-30 08:56 | PCPTNOTE ---
Attempted PT evaluation. Pt to drowsy/confused to safely participate in skilled therapy this morning. Nursing present. Joseph maria.
--- NOTE | 2024-12-30 08:58 | PCOTNOTE ---
Attempted to see pt. for occupational therapy evaluation. Pt. repeatedly fell asleep, unable to consistently stay awake, unable to follow directions
[2024-12-30] MEDS: NICOTINE (*PBKC) 21 MG PATCH 1 PATCH TRANSDERM (09:10)
[2024-12-30 11:33] LABS: Glucose Point of Care 167 mg/dl (65-105)
[2024-12-30] MEDS: HYDROcodone/acetaminophen (*CRX) 5-325 MG TABLET 1 TAB PO (13:12)
[2024-12-30] MEDS: METOPROLOL TARTRATE 25 MG TABLET PO ×2 (13:12→20:33)
--- NOTE | 2024-12-30 14:31 | P.PNNP_ITS ---
Progress Note: A&P Assessment and Plan (1) Acute kidney injury: Code(s): N17.9 - Acute kidney failure, unspecified Status: Acute Assessment and Plan: * as noted on admission * evaluation to date noted: * renal u/s normal * urine eosinophils negative * nephrotic range proteinuria * prerenal urine electrolytes * CPK mildly elevated (but not enought to affect kidney function) * further serologies pending * outpatient evaluation noted - normal complements but hematuria with positive * initiated [facility]/HD on 12/21 * s/p RENAL BIOPSY (on 12/22) with findings noted: * diabetic nephropathy * significant interstitial fibrosis/tubular atrophy noted as well * fluctuating urine output noted * however, BUN + creatinine continue to rise without dialytic support * last HD on 12/27 - trial of holding HD....follow labs and UOP (2) Stage 3b chronic kidney disease: Code(s): N18.32 - Chronic kidney disease, stage 3b Status: Chronic Assessment and Plan: * baseline creatinine runs around 1.7 - 2.3mg/dl * secondary to diabetes (as noted by renal biopsy) and hypertension (3) Pneumonia: Code(s): J18.9 - Pneumonia, unspecified organism Status: Acute Assessment and Plan: * admission CXR with bibasilar infiltrates * completed course of antibiotics * respiratory status stable (4) Heart failure with mildly reduced ejection fraction: Code(s): I50.22 - Chronic systolic (congestive) heart failure Status: Acute Assessment and Plan: * known history * repeat Echo (12/18) noted: * severely reduced systolic function with EF 25-30% * diastolic dysfunction * mild valvular disease * moderate pulmonary hypertension * CXR with cardiomegaly, bibasilar infiltrates and small pleural effusions * Entresto and diuretics on hold given #1 * removing fluid with dialysis * not opposed to re-start entresto if necessary * Cardiology following (5) Encephalopathy: Code(s): G93.40 - Encephalopathy, unspecified Status: Acute Assessment and Plan: * still with intermittent confusion * doubt uremia playing a role given improvement in BUN * testing to date noted: * ammonia level is okay * B12 and folate are okay * WBC okay and no fevers so unlikely to be related to infection * aodium good * magnesium and calcium stable * CT of brain normal * ABGs reasonable * Neurology recommendations noted (6) Atrial flutter with rapid ventricular response: Code(s): I48.92 - Unspecified atrial flutter Status: Acute Assessment and Plan: * rate control strategy * on heparin gtt for anticoagulation (7) Transaminitis: Code(s): R74.01 - Elevation of levels of liver transaminase levels Status: Deleted Assessment and Plan: * normal earlier in November 2024 * hepatitis panel negative * abd US showing cholelithiasis and mildly dilated CBD; liver is normal in appearance * holding statin * liver biopsy (on 12/21) noted: * ongestive hepatopathy and congestive hepatic fibrosis * improving (8) Anemia: Code(s): D64.9 - Anemia, unspecified Status: Acute Assessment and Plan: * related to ELEANOR, CKD, and acute illness * Epogen with HD as needed * follow trend of H/H (9) Peripheral vascular disease: Code(s): I73.9 - Peripheral vascular disease, unspecified Status: Acute Assessment and Plan: * known history * on zetia but statin on hold given elevated LFTs * complicated by ongoing smoking * arterial dopplers noted (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 L Subjective Date/time seen: 12/30/24 14:31 Interval history: Follow-up for acute kidney injury/acute renal failure on chronic kidney disease. Remains confused and unable to follow commands (which has limited participation with PT/OT); trial of holding dialysis and renal function/creatinine continue to rise in association with diminished/poor urine output; eating better per nursing; no apparent distress voiced. Exam 2 Narrative: General: elderly male in NAD but confused Heart: tachycardic; normal S1 and S2; no rub Lungs: coarse breath sounds Abdomen: obese but soft, nontender, nondistended, positive bowel sounds Extremities: no cyanosis or clubbing; 1+ edema in RLE; s/p left AKA Skin: no nodules Objective Data Vital Signs Vital Signs: Vital Signs Temp Pulse Resp BP Pulse Ox O2 Del Method 12/30/24 05:28 97.7 F 121 H 20 122/85 100 12/30/24 05:09 117 H 12/30/24 00:36 113 H 12/29/24 22:21 106 H 12/29/24 21:41 97.4 F L 116 H 20 125/93 H 97 12/29/24 20:30 Room Air 12/29/24 20:02 120 H Intake/Output Intake/Output: Intake & Output 12/27/24 12/28/24 12/29/24 12/30/24 23:59 23:59 23:59 23:59 Intake Total 490 3267.7 407.8 245.7 Output Total 1900 800 225 100 Balance -1410 2467.7 182.8 145.7 Meds/Results Medications: Active Medications Generic Name Dose Route Start Last Admin Trade Name Freq PRN Reason Stop Dose Admin Acetaminophen 650 mg 12/17/24 16:18 12/18/24 20:54 Acetaminophen 325 Mg Tablet PO 650 mg Q4H PRN Administration Mild Pain (1-3) or Fever Hydrocodone Bitart/Acetaminophen 1 tab 12/17/24 19:37 12/30/24 13:12 Hydrocodone/Acetaminophen (*Crx) 5-325 Mg Tablet PO 1 tab Q8H PRN Administration pain 4-6 Aspirin 81 mg 12/20/24 08:00 12/30/24 08:54 Aspirin 81 Mg Chewable Tablet PO 81 mg DAILY@0800 [facility] Administration Calcium Carbonate 200 mg 12/18/24 22:39 Calcium Carbonate (Tums) 500 Mg (200 Mg Elemental) PO Q6H PRN Indigestion Dextrose 12.5 gm 12/17/24 22:39 Dextrose 50% 25 Gm/50 Ml Syringe IV PUSH PRN PRN Hypoglycemia Protocol Docusate Sodium 100 mg 12/23/24 21:00 12/30/24 08:55 Docusate Sodium 100 Mg Capsule PO 100 mg Q12HR REGINA Administration Ezetimibe 10 mg 12/18/24 09:00 12/30/24 08:54 Ezetimibe 10 Mg Tablet PO 10 mg DAILY REGINA Administration Glucagon 1 mg 12/17/24 22:39 Glucagon For Inj 1 Mg Vial IM PRN PRN Hypoglycemia Protocol Glucose 15 gm 12/17/24 22:39 Glucose Oral Gel 15 Gm Of Glucse In 37.5 Gm Tube PO PRN PRN Hypoglycemia Protocol Heparin Sodium (Porcine) 7,500 units 12/27/24 14:06 Heparin Sodium 5,000 Units/Ml Vial IV PUSH PRN PRN aPTT less than 55 seconds Heparin Sodium (Porcine) 3,500 units 12/27/24 14:06 12/28/24 00:06 Heparin Sodium 5,000 Units/Ml Vial IV PUSH 3,500 units PRN PRN Administration aPTT 55 - 70 seconds Dextrose 1,000 mls @ 100 mls/hr 12/17/24 22:39 Dextrose 5% 1,000 Ml IVPB PRN PRN Hypoglycemia Protocol Albumin Human 50 mls @ 999 mls/hr 12/22/24 05:43 Albutein IVPB 01/21/25 05:42 Q10M PRN HYPOTENSION Heparin Sodium/Dextrose 25,000 units in 250 mls @ 15 mls/hr 12/27/24 14:10 12/30/24 08:50 Heparin Sodium/D5w 100 Units/Ml IV CONT 1,500 units/hr .[id number] REGINA 15 mls/hr Administration Protocol 1,500 UNITS/HR Insulin Aspart 2 - 5 units 12/29/24 12:00 12/30/24 16:37 Insulin Aspart (*Bkc) 100 Units/Ml SUB-Q Not Given TIDWM [facility] Protocol Insulin Aspart 2 - 5 units 12/29/24 21:00 12/29/24 21:56 Insulin Aspart (*Bkc) 100 Units/Ml SUB-Q Not Given HS [facility] Protocol Levothyroxine Sodium 250 mcg 12/21/24 06:30 12/30/24 05:42 Levothyroxine Sodium 125 Mcg Tablet PO Not Given [email or web address] [facility] Levothyroxine Sodium 125 mcg 12/26/24 06:30 12/26/24 08:18 Levothyroxine Sodium 125 Mcg Tablet PO Not Given [email or web address]@[id number] [facility] Lorazepam 0.5 mg 12/27/24 18:28 12/30/24 09:32 Lorazepam Inj (*Crx) 2 Mg/Ml Vial IV PUSH 0.5 mg Q6H PRN Administration Anxiety Metoprolol Tartrate 25 mg 12/28/24 14:00 12/30/24 13:12 Metoprolol Tartrate 25 Mg Tablet PO 25 mg Q8HR REGINA Administration Nicotine 1 patch 12/17/24 22:45 12/30/24 09:10 Nicotine (*Pbkc) 21 Mg Patch TRANSDERM 1 patch DAILY REGINA Administration Ondansetron HCl 4 mg 12/17/24 16:18 12/19/24 21:24 Ondansetron Inj 4 Mg/2 Ml Vial IV PUSH 4 mg Q4H PRN Administration Nausea Sacubitril/Valsartan 1 tab 12/17/24 21:00 12/18/24 08:25 Sacubitril/Valsartan 24-26 Mg Tablet PO 1 tab Q12HR REGINA Administration Sertraline HCl 100 mg 12/18/24 09:00 12/30/24 08:54 Sertraline Hcl 50 Mg Tablet PO 100 mg DAILY REGINA Administration Radiology Results: ITS Impressions Lumbar Spine X-Ray 12/17/24 15:44 IMPRESSION: Anterior loss of volume of L1 which is most likely chronic. MRI evaluation advised. Otherwise, No acute osseous abnormality lumbar spine. Degenerative disc disease at the level of L4-L5. Venous Doppler Study 12/18/24 13:13 IMPRESSION: 1. No deep venous thrombosis. Abdomen Ultrasound 12/18/24 13:18 IMPRESSION: 1. Cholelithiasis. No evidence of acute cholecystitis. 2. Mildly dilated common duct. Renal Ultrasound 12/18/24 13:21 IMPRESSION: 1. Normal kidney sizes. No hydronephrosis. Lumbar Spine MRI 12/18/24 15:23 IMPRESSION: Limited examination secondary to motion artifact. No abnormal signal intensity or contrast enhancement is identified within the vertebral body of L1 to suggest acute traumatic injury. Within the visualized intervertebral disc spaces, moderate degenerative disease is noted, as detailed above. Duplex Scan Lower Extremity Artery 12/18/24 21:35 IMPRESSION: Abnormal peak systolic velocity and waveform morphology suggesting a popliteal or tibioperoneal trunk stenosis. Three-vessel blood flow into the right calf with single vessel blood flow into the right foot (on the submitted images) MRCP 12/21/24 08:48 IMPRESSION: 1. Study terminated at patient request prior to obtaining the normal complement of sequences including the MRCP images and which along with some motion artifact on the obtained sequences moderately limits evaluation. 2. Anasarca with small left and moderate-sized right pleural effusions, small amount of ascites and extensive body wall, as enteric and retroperitoneal edema. 3. Normal-appearing gallbladder with no evident cholelithiasis and with no intra or extrahepatic biliary ductal dilation. Sensitivity for tiny gallstones which were suggested on prior ultrasound is limited by motion artifact. 4. Cardiomegaly. Liver Biopsy Ultrasound 12/22/24 10:51 IMPRESSION: 1. Successful Ultrasound-guided random liver biopsy. Renal Biopsy Ultrasound 12/23/24 10:32 IMPRESSION: 1. Ultrasound-guided random left kidney core needle biopsy. Chest X-Ray 12/25/24 13:40 IMPRESSION: 1. Small left and small to moderate-sized right pleural effusion with associated bibasilar atelectasis and/or pneumonia. 2. Cardiomegaly. Head CT 12/25/24 17:06 IMPRESSION: No acute intracranial process. Labs Labs: Laboratory Tests 12/30/24 05:48 12/30/24 05:48 Calcium 7.8 L Phosphorus 5.0 H Magnesium 1.9 Total Bilirubin 0.9 AST 49 ALT 130 H Alkaline Phosphatase 187 H Total Protein 6.0 L Albumin 2.8 L
[2024-12-30 16:40] LABS: Glucose Point of Care 140 mg/dl (65-105)
--- NOTE | 2024-12-30 17:43 | P.PNIM_ITS ---
Progress Note: A&P Assessment and Plan (1) Altered mental status: Code(s): R41.82 - Altered mental status, unspecified Status: Acute Assessment and Plan: Overnight 12/25/2024 patietn was confused requiring iv ativan prn. haldol prn for agitation labs stable or unremarkable. Ammonia negative ABG unremarkable CT head unremarkable. CXR showing small left and small-mod right pleural effusion with associated atelectasis and/or PNA UA +/-started empirically on ceftriaxone BCx (12/25) NGTD. UCx 12/25 negative EEG 12/28 - abnormal record due to the absence of a normal background rhythm but without evidence of paroxysmal activity Rocephin stopped. Stopped some of his sedating mediations. Remains on Ativan and [place] prn Supportive treatment. Neurology followng and recommends Seroquel at night. Stop Ativan and [place]. Add Seroquel. (2) Abnormal transaminases: Code(s): R74.8 - Abnormal levels of other serum enzymes Status: Acute Assessment and Plan: On admission, AST 215 and ALT 201. AP 340 with normal bili. Levels normal earlier this month. Hepatitis panel negative. Abd US showing cholelithiasis and mildly dilated CBD. Liver is normal in appearance. lipitor held. Repeat levels on 12/20 much worse with AST 1539, ALT 1066, AP 479, normal bili. Lactic acid 1.1. Acet level <10 Possible due to congestion due to heart failure Consider autoimmune with + IV fluids stopped. GI consulted and appreciate their input. Patient was able to complete some of the MRCP. This showed anasarca, small left and moderate size right pleural effusion, small amount of ascites, extensive body edema and cardiomegaly. He had a normal appearing gallbladder with no evidence of cholelithiasis no intra or extrahepatic biliary ductal dilatation. Sensitivity was limited. Status post liver biopsy 12/22/2024: congestive hepatopathy and congestive hepatic fibrosis score 1. LFTs improving. Sargeant related to hepatic congestion. Follow. (3) Acute kidney injury: Code(s): N17.9 - Acute kidney failure, unspecified Status: Acute Assessment and Plan: Patient presents with weakness and may have had underlying PNA. Cr on admission 4.3. Baseline Cr 2.1-2.9 range. He was started on IV fluids. Urine eos negative. Eve 42. Total CK 371. Urine prot/Cr 4.7gm consistent with nephrotic syndrome. Complement normal. Hx of + 1:640. Renal US normal. Nephrology consulted and appreciate their input. Cryoglobulin negative. Creatinine was trending up; HD catheter placement 12/22/2024 and was started on hemodialysis. 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 50-60% tubular atrophy and interstitial fibrosis. Last dialysis 12/27/2024. UOP poor. Cr rising. Appreciate nephrology input (4) Pneumonia: Code(s): J18.9 - Pneumonia, unspecified organism Status: Acute Assessment and Plan: Patient presents with weakness after having cold and cough symptoms for 3 weeks. No benefit after 2 Z-packs. CXR showing bibasilar infiltrates. No fevers or hypoxia. WBC 12K. He was started on Rocephin and Doxycycline. WBC normal now. BCx NGTD. MRSA screen negative. Urine Ag negative. Sputum Cx growing MSSA and yeast. He completed a 7 day course. Rocephin started for possible UTI but UCx negative so stopped. Follow off abx (last dose was 12/29 at 1215) (5) Heart failure with mildly reduced ejection fraction: Code(s): I50.22 - Chronic systolic (congestive) heart failure Status: Acute Assessment and Plan: Echo showing severely reduced systolic fxn with EF 25-30% with diastolic dysfunction, mild valve disease and moderate pulmonary HTN. BNP >30K. CXR showing CMG, bibasilar infiltrates and small pleural effusions. Entresto and finerenone on hold. Diuretics not listed on home med list. Eve 42 Holding Entresto. Monitor UOP, renal fxn, daily weights and fluid balance. Resume meds when able. (6) Atrial flutter with rapid ventricular response: Code(s): I48.92 - Unspecified atrial flutter Status: Acute Assessment and Plan: new onset atrial fibrillation. On metoprolol. Eliquis when able He refused his metoprolol this morning. On heparin drip for now. (7) Type 2 diabetes mellitus with hyperglycemia, with long-term current use of insulin: Code(s): E11.65 - Type 2 diabetes mellitus with hyperglycemia; Z79.4 - correction (current) use of insulin Status: Acute Assessment and Plan: A1c 7%. The patient's blood glucose was reviewed Patient was on an insulin pump at home. Concern patient was unable to handle his pump here so this was held. Glucose remains well controlled off the insulin pump. He is eating some Continue AccuCheks covering with sliding scale. Hypoglycemia protocol available as needed. Continue to monitor (8) Chronic kidney disease, stage 4 (severe): Code(s): N18.4 - Chronic kidney disease, stage 4 (severe) Status: Acute Assessment and Plan: As above (9) Status post above-knee amputation of left lower extremity: Code(s): Z89.612 - Acquired absence of left leg above knee Status: Acute Assessment and Plan: Patient with known PAD. Venous doppler RLE negative for DVT. Arterial doppler RLE suggestive of a popliteal or tibioperoneal trunk stenosis. There is three-vessel blood flow into the right calf with single vessel blood flow into the right foot. Continue Zetia and ASA. Resume Lipitor when able. Plan # Hypothyroidism: Review of Endocrine note from 11/12 showing he was to skip the Friday Synthroid dose. TSH is 46.4. Free T4 is low-normal at 0.96. Total T3 is 0.5. Patient is currently on 250 mcg daily except no meds on Friday. Suspect the skipped dose has resulted in the change in his thyroid panel. Will adjust to 250mcg daily except added 125mcg on Sundays. # Tobacco dependence: Patient was educated about the benefits of smoking cessation # urinary retention status post cystoscopy with passive dilation of mild bulbar narrowing. Complex Hernandez catheter placement with 16 Kiswahili coude on 12/20/2024. Maintain Hernandez catheter until improvement in volume status and mobility. # Low back pain - Lumbar MRI performed but no acute finding seen on limited imaging due to motion artifact. # DVT prophylaxis - Heparin # Code status - full Subjective Date/time seen: 12/30/24 17:43 Interval history: 64yo male smoker with hx of TIA, CHF, HTN CKD, DM with PN, status post left [id number] amputation related to infection Charcot foot, and hypothyroidism who presented to the emergency department via private vehicle with complaints of weakness and overall not feeling well. Ate okay per RN. Not following commands when working with therapy. Patient remains confused. Review of Systems Review of Systems: ROS unobtainable: Yes unobtainable due to mental status Exam Narrative: AF 97.7 122/85 121 20 100% RA Gen - confused, in restraints Neck - right IJ HD catheter secured. Chest - relatively clear to quiet respirations. CV - RRR S1/S2. Tele showing no significant dysrhythmias but he is not wearing it regularly Abd - Soft, obese, NT, flank edema much improved - Hernandez secured draining martinez colored urine Ext - Left AKA. improved RLE pedal edema Psych - Nml mood and affect Skin - Warm and dry. multiple wounds bilateral hands in varius stages of healing. dry RLE skin Objective Data Vital Signs Vital Signs: Vital Signs - 24 hr 12/29/24 20:02 12/29/24 20:30 12/29/24 21:41 Temperature 97.4 F L Pulse Rate 120 H 116 H Respiratory Rate 20 Blood Pressure 125/93 H Pulse Oximetry 97 Oxygen Delivery Room Air 12/29/24 22:21 12/30/24 00:36 12/30/24 05:09 Temperature Pulse Rate 106 H 113 H 117 H Respiratory Rate Blood Pressure Pulse Oximetry Oxygen Delivery 12/30/24 05:28 Temperature 97.7 F Pulse Rate 121 H Respiratory Rate 20 Blood Pressure 122/85 Pulse Oximetry 100 Oxygen Delivery Intake/Output Intake/Output: Intake & Output 12/27/24 12/28/24 12/29/24 12/30/24 23:59 23:59 23:59 23:59 Intake Total 490 3267.7 407.8 245.7 Output Total 1900 800 225 100 Balance -1410 2467.7 182.8 145.7 Meds/Results Medications: Active Medications Generic Name Dose Route Start Last Admin Trade Name Freq PRN Reason Stop Dose Admin Acetaminophen 650 mg 12/17/24 16:18 12/18/24 20:54 Acetaminophen 325 Mg Tablet PO 650 mg Q4H PRN Administration Mild Pain (1-3) or Fever Hydrocodone Bitart/Acetaminophen 1 tab 12/17/24 19:37 12/30/24 13:12 Hydrocodone/Acetaminophen (*Crx) 5-325 Mg Tablet PO 1 tab Q8H PRN Administration pain 4-6 Aspirin 81 mg 12/20/24 08:00 12/30/24 08:54 Aspirin 81 Mg Chewable Tablet PO 81 mg DAILY@0800 REGINA Administration Calcium Carbonate 200 mg 12/18/24 22:39 Calcium Carbonate (Tums) 500 Mg (200 Mg Elemental) PO Q6H PRN Indigestion Dextrose 12.5 gm 12/17/24 22:39 Dextrose 50% 25 Gm/50 Ml Syringe IV PUSH PRN PRN Hypoglycemia Protocol Docusate Sodium 100 mg 12/23/24 21:00 12/30/24 08:55 Docusate Sodium 100 Mg Capsule PO 100 mg Q12HR REGINA Administration Ezetimibe 10 mg 12/18/24 09:00 12/30/24 08:54 Ezetimibe 10 Mg Tablet PO 10 mg DAILY REGINA Administration Glucagon 1 mg 12/17/24 22:39 Glucagon For Inj 1 Mg Vial IM PRN PRN Hypoglycemia Protocol Glucose 15 gm 12/17/24 22:39 Glucose Oral Gel 15 Gm Of Glucse In 37.5 Gm Tube PO PRN PRN Hypoglycemia Protocol Heparin Sodium (Porcine) 7,500 units 12/27/24 14:06 Heparin Sodium 5,000 Units/Ml Vial IV PUSH PRN PRN aPTT less than 55 seconds Heparin Sodium (Porcine) 3,500 units 12/27/24 14:06 12/28/24 00:06 Heparin Sodium 5,000 Units/Ml Vial IV PUSH 3,500 units PRN PRN Administration aPTT 55 - 70 seconds Dextrose 1,000 mls @ 100 mls/hr 12/17/24 22:39 Dextrose 5% 1,000 Ml IVPB PRN PRN Hypoglycemia Protocol Albumin Human 50 mls @ 999 mls/hr 12/22/24 05:43 Albutein IVPB 01/21/25 05:42 Q10M PRN HYPOTENSION Heparin Sodium/Dextrose 25,000 units in 250 mls @ 15 mls/hr 12/27/24 14:10 12/30/24 08:50 Heparin Sodium/D5w 100 Units/Ml IV CONT 1,500 units/hr .[id number] REGINA 15 mls/hr Administration Protocol 1,500 UNITS/HR Insulin Aspart 2 - 5 units 12/29/24 12:00 12/30/24 16:37 Insulin Aspart (*Bkc) 100 Units/Ml SUB-Q Not Given TIDWM [facility] Protocol Insulin Aspart 2 - 5 units 12/29/24 21:00 12/29/24 21:56 Insulin Aspart (*Bkc) 100 Units/Ml SUB-Q Not Given HS [facility] Protocol Levothyroxine Sodium 250 mcg 12/21/24 06:30 12/30/24 05:42 Levothyroxine Sodium 125 Mcg Tablet PO Not Given [id number] [facility] Levothyroxine Sodium 125 mcg 12/26/24 06:30 12/26/24 08:18 Levothyroxine Sodium 125 Mcg Tablet PO Not Given Mitchell@0630 [facility] Lorazepam 0.5 mg 12/27/24 18:28 12/30/24 09:32 Lorazepam Inj (*Crx) 2 Mg/Ml Vial IV PUSH 0.5 mg Q6H PRN Administration Anxiety Metoprolol Tartrate 25 mg 12/28/24 14:00 12/30/24 13:12 Metoprolol Tartrate 25 Mg Tablet PO 25 mg Q8HR REGINA Administration Nicotine 1 patch 12/17/24 22:45 12/30/24 09:10 Nicotine (*Pbkc) 21 Mg Patch TRANSDERM 1 patch DAILY REGINA Administration Ondansetron HCl 4 mg 12/17/24 16:18 12/19/24 21:24 Ondansetron Inj 4 Mg/2 Ml Vial IV PUSH 4 mg Q4H PRN Administration Nausea Sacubitril/Valsartan 1 tab 12/17/24 21:00 12/18/24 08:25 Sacubitril/Valsartan 24-26 Mg Tablet PO 1 tab Q12HR REGINA Administration Sertraline HCl 100 mg 12/18/24 09:00 12/30/24 08:54 Sertraline Hcl 50 Mg Tablet PO 100 mg DAILY REGINA Administration Radiology Results: ITS Impressions Lumbar Spine X-Ray 12/17/24 15:44 IMPRESSION: Anterior loss of volume of L1 which is most likely chronic. MRI evaluation advised. Otherwise, No acute osseous abnormality lumbar spine. Degenerative disc disease at the level of L4-L5. Venous Doppler Study 12/18/24 13:13 IMPRESSION: 1. No deep venous thrombosis. Abdomen Ultrasound 12/18/24 13:18 IMPRESSION: 1. Cholelithiasis. No evidence of acute cholecystitis. 2. Mildly dilated common duct. Renal Ultrasound 12/18/24 13:21 IMPRESSION: 1. Normal kidney sizes. No hydronephrosis. Lumbar Spine MRI 12/18/24 15:23 IMPRESSION: Limited examination secondary to motion artifact. No abnormal signal intensity or contrast enhancement is identified within the vertebral body of L1 to suggest acute traumatic injury. Within the visualized intervertebral disc spaces, moderate degenerative disease is noted, as detailed above. Duplex Scan Lower Extremity Artery 12/18/24 21:35 IMPRESSION: Abnormal peak systolic velocity and waveform morphology suggesting a popliteal or tibioperoneal trunk stenosis. Three-vessel blood flow into the right calf with single vessel blood flow into the right foot (on the submitted images) MRCP 12/21/24 08:48 IMPRESSION: 1. Study terminated at patient request prior to obtaining the normal complement of sequences including the MRCP images and which along with some motion artifact on the obtained sequences moderately limits evaluation. 2. Anasarca with small left and moderate-sized right pleural effusions, small amount of ascites and extensive body wall, as enteric and retroperitoneal edema. 3. Normal-appearing gallbladder with no evident cholelithiasis and with no intra or extrahepatic biliary ductal dilation. Sensitivity for tiny gallstones which were suggested on prior ultrasound is limited by motion artifact. 4. Cardiomegaly. Liver Biopsy Ultrasound 12/22/24 10:51 IMPRESSION: 1. Successful Ultrasound-guided random liver biopsy. Renal Biopsy Ultrasound 12/23/24 10:32 IMPRESSION: 1. Ultrasound-guided random left kidney core needle biopsy. Chest X-Ray 12/25/24 13:40 IMPRESSION: 1. Small left and small to moderate-sized right pleural effusion with associated bibasilar atelectasis and/or pneumonia. 2. Cardiomegaly. Head CT 12/25/24 17:06 IMPRESSION: No acute intracranial process. Labs Labs: Laboratory Results - last 24 hr 12/29/24 12/29/24 12/30/24 20:23 20:33 05:48 WBC 9.0 RBC 4.57 L Hgb 11.2 L Hct 38.9 L MCV 85.1 MCH 24.5 L MCHC 28.8 L RDW 19.1 H Plt Count 303 MPV 10.4 Immature Gran % (Auto) 0.3 Neut % (Auto) 56.3 Lymph % (Auto) 29.8 [place] % (Auto) 11.5 H Eos % (Auto) 1.3 Baso % (Auto) 0.8 Lymph # (Auto) 2.68 [place] # (Auto) 1.0 H Eos # (Auto) 0.1 Baso # (Auto) 0.1 Abs Immat Gran (auto) 0.03 Absolute Neuts (auto) 5.1 Absolute Nucleated RBC 0.040 H Band Neutrophils % Not Reportable Nucleated RBC % 0.4 H Platelet Estimate Adequate Anisocytosis 1+ Tear Drop Cells 1+ Ovalocytes 1+ [place] Cells 1+ Crenated Cell 1+ Schistocytes None seen APTT 73.1 H Sodium 135 L Potassium 4.2 Chloride 102 Carbon Dioxide 23 Anion Gap 10 BUN 40 H Creatinine 3.28 H Estim Creat Clear Calc 24 Estimated GFR 19 L Glucose 112 H POC Capillary Glucose 140 H Calcium 7.8 L Phosphorus 5.0 H Magnesium 1.9 Total Bilirubin 0.9 AST 49 ALT 130 H Alkaline Phosphatase 187 H Total Protein 6.0 L Albumin 2.8 L 12/30/24 12/30/24 12/30/24 07:44 11:22 16:36 WBC RBC Hgb Hct MCV MCH MCHC RDW Plt Count MPV Immature Gran % (Auto) Neut % (Auto) Lymph % (Auto) [place] % (Auto) Eos % (Auto) Baso % (Auto) Lymph # (Auto) [place] # (Auto) Eos # (Auto) Baso # (Auto) Abs Immat Gran (auto) Absolute Neuts (auto) Absolute Nucleated RBC Band Neutrophils % Nucleated RBC % Platelet Estimate Anisocytosis Tear Drop Cells Ovalocytes [place] Cells Crenated Cell Schistocytes APTT Sodium Potassium Chloride Carbon Dioxide Anion Gap BUN Creatinine Estim Creat Clear Calc Estimated GFR Glucose POC Capillary Glucose 107 H 167 H 140 H Calcium Phosphorus Magnesium Total Bilirubin AST ALT Alkaline Phosphatase Total Protein Albumin
[2024-12-30 20:00] VITALS: PULSE 114
[2024-12-30 20:33] VITALS: PULSE 119
[2024-12-30] MEDS: QUEtiapine FUMARATE 12.5 MG TABLET PO (20:33)
[2024-12-30] MEDS: ONDANSETRON INJ 4 MG/2 ML VIAL IV PUSH (20:53)
[2024-12-30 21:14] LABS: Glucose Point of Care 140 mg/dl (65-105)
[2024-12-30 21:53] VITALS: BP 101/69; PULSE 112; RESP 14; TEMP 36.4; O2SAT 92
[2024-12-30 22:03] LABS: Methylmalonic Acid 282 nmol/L (69-390)
[2024-12-31] VITALS (26 sets, daily range): BP systolic 102–133; BP diastolic 68–85; PULSE 95–132; RESP 18–20; TEMP 36.3–37; O2SAT 97
[2024-12-31] MEDS: HEPARIN SOD/D5W 100 UNITS/ML 25,000 UNITS/250 ML BAG 15 UNITS IV CONT (01:08)
[2024-12-31] MEDS: diphenhydrAMINE HCl INJ 50 MG/ML VIAL 25 MG IV PUSH (01:55)
[2024-12-31] MEDS: OLANZapine 10 MG, WATER, STERILE FOR INJECTION 2.1 ML IM (05:00)
[2024-12-31] MEDS: METOPROLOL TARTRATE 25 MG TABLET PO ×2 (05:07→21:29)
[2024-12-31] MEDS: LEVOTHYROXINE SODIUM 125 MCG TABLET 250 MCG PO (05:07)
--- NOTE | 2024-12-31 05:27 | PC.NURSE ---
0400- Pt restraints released. Pt calm but requiring multiple redirection r/t trying to remove restraints and pull on multiple lines. When restraints were re applied at 0445 pt became very agitated yelling and cussing and pulling on restraints. Dr Lima notified of pt agitation, N.O for zyprexa 10mg IM x1 now.
[2024-12-31 06:48] LABS: Basophils Absolute Auto 0.1 K/mm3 (0.0-0.1); Basophils Percent Auto 0.7 % (0.2-1.2); Eosinophils Absolute Auto 0.2 K/mm3 (0-0.3); Eosinophils Percent Auto 2.6 % (0-4.4); Hematocrit 35.2 % (42.0-52.0); Immature Granulocyte Absolute 0.06 K/mm3 (0.00-0.031); Immature Granulocyte Percent A 0.7 % (0-0.5); Lymphocytes Absolute Auto 2.14 K/mm3 (0.9-3.2); Lymphocytes Percent Auto 26.3 % (18.3-44.2); Mean Corpuscular HGB Conc 28.4 g/dl (32-36); Mean Corpuscular Hemoglobin 24.7 pg (26-34); Mean Corpuscular Volume 86.9 fl (80-100); Mean Platelet Volume 10.2 fl (7.4-10.4); Monocytes Percent Auto 11.7 % (2.6-8.5); Neutrophils Absolute Auto 4.7 K/mm3 (1.3-6.7); Nucleated Red Blood Cells Perc 0.4 % (0.0-0.2); Platelet Count Result 233 k/mm3 (150-375); Red Blood Count 4.05 M/mm3 (4.6-6.20); White Blood Count 8.1 K/mm3 (4.5-10.0)
[2024-12-31 07:12] LABS: Alanine Aminotransferase 111 U/L (6-50); Albumin Level 2.5 g/dL (3.5-5.1); Alkaline Phosphatase 173 U/L (38-126); Anion Gap 8 mmol/L (4-12); Aspartate Amino Transferase 48 U/L (17-59); Bilirubin,Total 0.8 mg/dL (0.2-1.3); Blood Urea Nitrogen 48 mg/dL (9-20); Calcium 7.5 mg/dL (8.4-10.2); Carbon Dioxide 24 mmol/L (22-30); Chloride 104 mmol/L (98-107); Estimated CRCL calculation 25 ml/min; Estimated Glomerular Filt Rate 17; Glucose 106 mg/dL (65-110); Potassium 4.2 mmol/L (3.4-5.0); Sodium 136 mmol/L (137-145)
[2024-12-31 07:36] LABS: Platelet Estimate Adequate (Adequate)
[2024-12-31 07:37] LABS: Acanthocytes 1+; Hypochromasia 2+
[2024-12-31 07:38] LABS: Anisocytosis 2+; Schistocytes 1+
--- NOTE | 2024-12-31 08:06 | PCPTNOTE ---
Attempted PT evaluation. Pt remains too confused and drifts off to sleep during conversation to safely participate in skilled therapy. Nursing aware. Will contact hospitalist.
[2024-12-31 08:24] LABS: Partial Thromboplastin Time 54.5 Seconds (22.3-36.8)
[2024-12-31 09:05] LABS: Glucose Point of Care 97 mg/dl (65-105)
[2024-12-31] MEDS: HEPARIN SODIUM 5,000 UNITS/ML VIAL 7500 UNITS IV PUSH (09:57)
[2024-12-31] MEDS: NICOTINE (*PBKC) 21 MG PATCH 1 PATCH TRANSDERM (09:58)
[2024-12-31] MEDS: HEPARIN SOD/D5W 100 UNITS/ML 25,000 UNITS/250 ML BAG 19 UNITS IV CONT ×3 (09:59→23:00)
[2024-12-31 12:12] LABS: Glucose Point of Care 94 mg/dl (65-105)
--- NOTE | 2024-12-31 12:37 | PCNFU ---
Nutrition Follow-Up Complete: Increased protein energy needs related to hemodialysis, as evidenced by labs, intakes 5-100% Adequate PO intake at least 75% meals and supplements - Goal is not being met consistently Goal: Pt current nutrition is Renal diet, minced & moist L5. Ensure Enlive BID (350 kcal, 20 g protein) and Nutritional ice cream BID (270 kcal, 9 g protein). Nutrition recommendation: No nutrition recommendations. Continue current nutrition care plan and orders. Agree with orders Last recorded weight is 107.1 kg. Bowel Motility: +4 BMs 12/29/24 Labs Reviewed: Hgb 10, Hc5 35.2, Alb 2.4, Na 136, BUN 8, Cre 3.6 Meds Noted: Seroquel Skin: No pressure Additional Notes: Intakes are poor to fair. refusing some meals. Continue current nutrition care plan and orders. Monitoring intakes, labs, weights, diet orders, plan of care Follow up in 5 days
--- NOTE | 2024-12-31 14:41 | PM.IMPN ---
Progress Note: A&P Assessment and Plan (1) Altered mental status: Code(s): R41.82 - Altered mental status, unspecified Status: Acute Assessment and Plan: Patient has developed confused since 12/25/2024. He was receiving ativan and haldol prn for agitation Ammonia negative ABG unremarkable. B12 normal. TSH as mentioned below. Vit D <12.8 CT head unremarkable. CXR showing small left and small-mod right pleural effusion with associated atelectasis and/or PNA UA +/- so started empirically on ceftriaxone BCx (12/25) NGTD. UCx 12/25 negative EEG 12/28 - abnormal record due to the absence of a normal background rhythm but without evidence of paroxysmal activity Rocephin stopped. Stopped all of his sedating mediations and Seroquel added last night. Still received Zyprexa and Benadrly last night. Replace VitD. Advance Seroquel Supportive treatment. Neurology following and apprecaite their input (2) Abnormal transaminases: Code(s): R74.8 - Abnormal levels of other serum enzymes Status: Acute Assessment and Plan: On admission,LFTs were mildly elevated. Hepatitis panel negative. Abd US showing cholelithiasis and mildly dilated CBD. Liver was normal in appearance. Lipitor held. Repeat levels on 12/20 much worse with AST 1539, ALT 1066, AP 479, normal bili. Lactic acid 1.1. Acet level <10. [place] due to congestion from heart failure Consider autoimmune with + IV fluids stopped. GI consulted and appreciate their input. Patient was able to complete some of the MRCP. This showed anasarca, small left and moderate size right pleural effusion, small amount of ascites, extensive body edema and cardiomegaly. He had a normal appearing gallbladder with no evidence of cholelithiasis no intra or extrahepatic biliary ductal dilatation. Sensitivity was limited. Status post liver biopsy 12/22/2024: congestive hepatopathy and congestive hepatic fibrosis score 1. LFTs improving. [place] related to hepatic congestion. Follow. (3) Acute kidney injury: Code(s): N17.9 - Acute kidney failure, unspecified Status: Acute Assessment and Plan: Patient presents with weakness and may have had underlying PNA. Cr on admission 4.3. Baseline Cr 2.1-2.9 range. He was started on IV fluids. Urine eos negative. Eve 42. Total CK 371. Urine prot/Cr 4.7gm consistent with nephrotic syndrome. Complement normal. Hx of + 1:640. Renal US normal. Nephrology consulted and appreciate their input. Cryoglobulin negative. Creatinine was trending up; HD catheter placement 12/22/2024 and was started on hemodialysis. Renal biopsy 12/23/2024 with advanced diabetic glomerulosclerosis class 4. 50-60% tubular atrophy and interstitial fibrosis. Last dialysis 12/27/2024 but repeat HD today. UOP poor. Cr rising. Appreciate nephrology input (4) Pneumonia: Code(s): J18.9 - Pneumonia, unspecified organism Status: Acute Assessment and Plan: Patient presents with weakness after having cold and cough symptoms for 3 weeks. No benefit after 2 Z-packs. CXR showing bibasilar infiltrates. No fevers or hypoxia. WBC 12K. He was started on Rocephin and Doxycycline. WBC normal now. BCx NGTD. MRSA screen negative. Urine Ag negative. Sputum Cx growing MSSA and yeast. He completed a 7 day course. Rocephin restarted for possible UTI but UCx negative so stopped. Follow off abx (last dose of Rocephin was 12/29 at 1215) (5) Heart failure with mildly reduced ejection fraction: Code(s): I50.22 - Chronic systolic (congestive) heart failure Status: Acute Assessment and Plan: Echo showing severely reduced systolic fxn with EF 25-30% with diastolic dysfunction, mild valve disease and moderate pulmonary HTN. BNP >30K. CXR showing CMG, bibasilar infiltrates and small pleural effusions. Entresto and finerenone on hold. Diuretics not listed on home med list. Holding Entresto. Monitor UOP, renal fxn, daily weights and fluid balance. Resume meds when able. (6) Atrial flutter with rapid ventricular response: Code(s): I48.92 - Unspecified atrial flutter Status: Acute Assessment and Plan: New onset atrial fibrillation. On metoprolol. On heparin drip for now. 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 The patient's blood glucose was reviewed Patient was on an insulin pump at home. Concern patient was unable to handle his pump here so this was held. Glucose remains well controlled off the insulin pump. He is eating some Continue AccuCheks covering with sliding scale. Hypoglycemia protocol available as needed. Continue to monitor (8) Chronic kidney disease, stage 4 (severe): Code(s): N18.4 - Chronic kidney disease, stage 4 (severe) Status: Acute Assessment and Plan: As above (9) Status post above-knee amputation of left lower extremity: Code(s): Z89.612 - Acquired absence of left leg above knee Status: Acute Assessment and Plan: Patient with known PAD. Venous doppler RLE negative for DVT. Arterial doppler RLE suggestive of a popliteal or tibioperoneal trunk stenosis. There is three-vessel blood flow into the right calf with single vessel blood flow into the right foot. Continue Zetia and ASA. Resume Lipitor when able. Plan # Hypothyroidism: Review of Endocrine note from 11/12 showing he was to skip the Friday Synthroid dose. TSH is 46.4. Free T4 is low-normal at 0.96. Total T3 is 0.5. Patient is currently on 250 mcg daily except no meds on Friday. Suspect the skipped dose has resulted in the change in his thyroid panel. Will adjust to 250mcg daily except added 125mcg on Sundays. # Tobacco dependence: Patient was educated about the benefits of smoking cessation # urinary retention status post cystoscopy with passive dilation of mild bulbar narrowing. Complex Hernandez catheter placement with 16 Lithuanian coude on 12/20/2024. Maintain Hernandez catheter until improvement in volume status and mobility. # Low back pain - Lumbar MRI performed but no acute finding seen on limited imaging due to motion artifact. # meth abuse - Possible meth abuse to explain some of his mental status confusion prior to admission. Will discuss when patient more awake and alert. # DVT prophylaxis - Heparin # Code status - full Subjective Date/time seen: 12/31/24 14:41 Interval history: 64yo male smoker with hx of TIA, CHF, HTN CKD, DM with PN, status post left [id number] amputation related to infection Charcot foot, and hypothyroidism who presented to the emergency department via private vehicle with complaints of weakness and overall not feeling well. More confused overnight and received Zyprexa. Also given Benadryl for complaints of itching. He is awake at times but unable to provide hx. Spoke with family at bedside who stated that the patient has been confused for a few months prior to admission. They were concerned that the patient was taking meth again since this is how he acts when hi on meth. They have also noticed strangers around the patient recently. Review of Systems Review of Systems: ROS unobtainable: Yes unobtainable due to mental status Exam Narrative: AF 97.3 106/84 107 20 97% RA Gen - confused, in restraints Neck - right IJ HD catheter secured. Chest - clear to quiet respirations. CV - RRR S1/S2. Tele showing no significant dysrhythmias but he is not wearing it regularly Abd - Soft, obese, NT, mild/persistent flank edema - Hernandez secured draining martinez colored urine Ext - Left AKA. no RLE pedal edema Psych - altered Skin - Warm and dry. multiple wounds bilateral hands in varius stages of healing. dry RLE skin Objective Data Vital Signs Vital Signs: Vital Signs - 24 hr 12/30/24 20:00 12/30/24 20:33 12/30/24 21:53 Temperature 97.5 F L Pulse Rate 114 H 119 H 112 H Respiratory Rate 14 Blood Pressure 101/69 Pulse Oximetry 92 Oxygen Delivery 12/31/24 00:00 12/31/24 04:00 12/31/24 05:07 Temperature Pulse Rate 95 119 H 120 H Respiratory Rate Blood Pressure Pulse Oximetry Oxygen Delivery 12/31/24 06:00 12/31/24 08:10 12/31/24 08:10 Temperature 97.3 F L Pulse Rate 110 H 107 H Respiratory Rate 20 Blood Pressure 106/84 Pulse Oximetry 97 Oxygen Delivery Room Air Intake/Output Intake/Output: Intake & Output 12/28/24 12/29/24 12/30/24 12/31/24 23:59 23:59 23:59 23:59 Intake Total 3267.7 407.8 245.7 477.3 Output Total 800 225 300 50 Balance 2467.7 182.8 -54.3 427.3 Meds/Results Medications: Active Medications Generic Name Dose Route Start Last Admin Trade Name Freq PRN Reason Stop Dose Admin Acetaminophen 650 mg 12/31/24 12:08 Acetaminophen 650 Mg Suppository RECTAL Q6H PRN Mild Pain (1-3) or Fever Aspirin 81 mg 12/20/24 08:00 12/31/24 09:53 Aspirin 81 Mg Chewable Tablet PO Not Given DAILY@0800 REGINA Calcium Carbonate 200 mg 12/18/24 22:39 Calcium Carbonate (Tums) 500 Mg (200 Mg Elemental) PO Q6H PRN Indigestion Dextrose 12.5 gm 12/17/24 22:39 Dextrose 50% 25 Gm/50 Ml Syringe IV PUSH PRN PRN Hypoglycemia Protocol Docusate Sodium 100 mg 12/23/24 21:00 12/31/24 09:52 Docusate Sodium 100 Mg Capsule PO Not Given Q12HR [facility] Ezetimibe 10 mg 12/18/24 09:00 12/31/24 09:53 Ezetimibe 10 Mg Tablet PO Not Given DAILY [facility] Epoetin Oscar-epbx 4,000 units 12/31/24 17:09 Epoetin Oscar-Epbx 4,000 Units/Ml Vial IV PUSH 12/31/24 17:10 ONCE ONE Glucagon 1 mg 12/17/24 22:39 Glucagon For Inj 1 Mg Vial IM PRN PRN Hypoglycemia Protocol Glucose 15 gm 12/17/24 22:39 Glucose Oral Gel 15 Gm Of Glucse In 37.5 Gm Tube PO PRN PRN Hypoglycemia Protocol Heparin Sodium (Porcine) 7,500 units 12/27/24 14:06 12/31/24 09:57 Heparin Sodium 5,000 Units/Ml Vial IV PUSH 7,500 units PRN PRN Administration aPTT less than 55 seconds Heparin Sodium (Porcine) 3,500 units 12/27/24 14:06 12/28/24 00:06 Heparin Sodium 5,000 Units/Ml Vial IV PUSH 3,500 units PRN PRN Administration aPTT 55 - 70 seconds Dextrose 1,000 mls @ 100 mls/hr 12/17/24 22:39 Dextrose 5% 1,000 Ml IVPB PRN PRN Hypoglycemia Protocol Albumin Human 50 mls @ 999 mls/hr 12/22/24 05:43 Albutein IVPB 01/21/25 05:42 Q10M PRN HYPOTENSION Heparin Sodium/Dextrose 25,000 units in 250 mls @ 19 mls/hr 12/27/24 14:10 12/31/24 09:59 Heparin Sodium/D5w 100 Units/Ml IV CONT 1,900 units/hr .[id number] REGINA 19 mls/hr Administration Protocol 1,900 UNITS/HR Insulin Aspart 2 - 5 units 12/29/24 12:00 12/31/24 12:29 Insulin Aspart (*Bkc) 100 Units/Ml SUB-Q Not Given TIDWM [facility] Protocol Insulin Aspart 2 - 5 units 12/29/24 21:00 12/30/24 23:11 Insulin Aspart (*Bkc) 100 Units/Ml SUB-Q Not Given HS [facility] Protocol Levothyroxine Sodium 250 mcg 12/21/24 06:30 12/31/24 05:07 Levothyroxine Sodium 125 Mcg Tablet PO 250 mcg [id number] REGINA Administration Levothyroxine Sodium 125 mcg 12/26/24 06:30 12/26/24 08:18 Levothyroxine Sodium 125 Mcg Tablet PO Not Given Mitchell@0630 [facility] Metoprolol Tartrate 25 mg 12/28/24 14:00 12/31/24 05:07 Metoprolol Tartrate 25 Mg Tablet PO 25 mg Q8HR REGINA Administration Nicotine 1 patch 12/17/24 22:45 12/31/24 09:58 Nicotine (*Pbkc) 21 Mg Patch TRANSDERM 1 patch DAILY REGINA Administration Ondansetron HCl 4 mg 12/17/24 16:18 12/30/24 20:53 Ondansetron Inj 4 Mg/2 Ml Vial IV PUSH 4 mg Q4H PRN Administration Nausea Quetiapine Fumarate 25 mg 12/31/24 21:00 Quetiapine Fumarate 25 Mg Tablet PO HS [facility] Sertraline HCl 100 mg 12/18/24 09:00 12/31/24 09:53 Sertraline Hcl 50 Mg Tablet PO Not Given DAILY [facility] Vitamin D 1,000 units 12/31/24 09:00 12/31/24 09:53 Cholecalciferol 1,000 Units Tablet PO Not Given DAILY [facility] Radiology Results: ITS Impressions Lumbar Spine X-Ray 12/17/24 15:44 IMPRESSION: Anterior loss of volume of L1 which is most likely chronic. MRI evaluation advised. Otherwise, No acute osseous abnormality lumbar spine. Degenerative disc disease at the level of L4-L5. Venous Doppler Study 12/18/24 13:13 IMPRESSION: 1. No deep venous thrombosis. Abdomen Ultrasound 12/18/24 13:18 IMPRESSION: 1. Cholelithiasis. No evidence of acute cholecystitis. 2. Mildly dilated common duct. Renal Ultrasound 12/18/24 13:21 IMPRESSION: 1. Normal kidney sizes. No hydronephrosis. Lumbar Spine MRI 12/18/24 15:23 IMPRESSION: Limited examination secondary to motion artifact. No abnormal signal intensity or contrast enhancement is identified within the vertebral body of L1 to suggest acute traumatic injury. Within the visualized intervertebral disc spaces, moderate degenerative disease is noted, as detailed above. Duplex Scan Lower Extremity Artery 12/18/24 21:35 IMPRESSION: Abnormal peak systolic velocity and waveform morphology suggesting a popliteal or tibioperoneal trunk stenosis. Three-vessel blood flow into the right calf with single vessel blood flow into the right foot (on the submitted images) MRCP 12/21/24 08:48 IMPRESSION: 1. Study terminated at patient request prior to obtaining the normal complement of sequences including the MRCP images and which along with some motion artifact on the obtained sequences moderately limits evaluation. 2. Anasarca with small left and moderate-sized right pleural effusions, small amount of ascites and extensive body wall, as enteric and retroperitoneal edema. 3. Normal-appearing gallbladder with no evident cholelithiasis and with no intra or extrahepatic biliary ductal dilation. Sensitivity for tiny gallstones which were suggested on prior ultrasound is limited by motion artifact. 4. Cardiomegaly. Liver Biopsy Ultrasound 12/22/24 10:51 IMPRESSION: 1. Successful Ultrasound-guided random liver biopsy. Renal Biopsy Ultrasound 12/23/24 10:32 IMPRESSION: 1. Ultrasound-guided random left kidney core needle biopsy. Head CT 12/25/24 17:06 IMPRESSION: No acute intracranial process. Chest X-Ray 12/31/24 14:34 Impression: Small pleural effusions with bibasilar pulmonary edema/atelectasis. Support line, as above. Labs Labs: Laboratory Results - last 24 hr 12/27/24 12/30/24 12/30/24 12:38 16:36 21:04 WBC RBC Hgb Hct MCV MCH MCHC RDW Plt Count MPV Immature Gran % (Auto) Neut % (Auto) Lymph % (Auto) Dougherty % (Auto) Eos % (Auto) Baso % (Auto) Lymph # (Auto) Dougherty # (Auto) Eos # (Auto) Baso # (Auto) Abs Immat Gran (auto) Absolute Neuts (auto) Absolute Nucleated RBC Band Neutrophils % Nucleated RBC % Platelet Estimate Hypochromasia Anisocytosis Acanthocytes (Spur) Schistocytes APTT Sodium Potassium Chloride Carbon Dioxide Anion Gap BUN Creatinine Estim Creat Clear Calc Estimated GFR Glucose POC Capillary Glucose 140 H 140 H Calcium Phosphorus Magnesium Total Bilirubin AST ALT Alkaline Phosphatase Total Protein Albumin Methylmalonic Acid 282 12/31/24 12/31/24 12/31/24 06:36 07:55 08:23 WBC 8.1 RBC 4.05 L Hgb 10.0 L Hct 35.2 L MCV 86.9 MCH 24.7 L MCHC 28.4 L RDW 19.0 H Plt Count 233 MPV 10.2 Immature Gran % (Auto) 0.7 H Neut % (Auto) 58.0 Lymph % (Auto) 26.3 Dougherty % (Auto) 11.7 H Eos % (Auto) 2.6 Baso % (Auto) 0.7 Lymph # (Auto) 2.14 Dougherty # (Auto) 1.0 H Eos # (Auto) 0.2 Baso # (Auto) 0.1 Abs Immat Gran (auto) 0.06 H Absolute Neuts (auto) 4.7 Absolute Nucleated RBC 0.030 H Band Neutrophils % Not Reportable Nucleated RBC % 0.4 H Platelet Estimate Adequate Hypochromasia 2+ Anisocytosis 2+ Acanthocytes (Spur) 1+ Schistocytes 1+ APTT 54.5 H Sodium 136 L Potassium 4.2 Chloride 104 Carbon Dioxide 24 Anion Gap 8 BUN 48 H Creatinine 3.60 H Estim Creat Clear Calc 25 Estimated GFR 17 L Glucose 106 POC Capillary Glucose 97 Calcium 7.5 L Phosphorus 5.0 H Magnesium 2.0 Total Bilirubin 0.8 AST 48 ALT 111 H Alkaline Phosphatase 173 H Total Protein 5.0 L Albumin 2.5 L Methylmalonic Acid 12/31/24 11:43 WBC RBC Hgb Hct MCV MCH MCHC RDW Plt Count MPV Immature Gran % (Auto) Neut % (Auto) Lymph % (Auto) Dougherty % (Auto) Eos % (Auto) Baso % (Auto) Lymph # (Auto) Dougherty # (Auto) Eos # (Auto) Baso # (Auto) Abs Immat Gran (auto) Absolute Neuts (auto) Absolute Nucleated RBC Band Neutrophils % Nucleated RBC % Platelet Estimate Hypochromasia Anisocytosis Acanthocytes (Spur) Schistocytes APTT Sodium Potassium Chloride Carbon Dioxide Anion Gap BUN Creatinine Estim Creat Clear Calc Estimated GFR Glucose POC Capillary Glucose 94 Calcium Phosphorus Magnesium Total Bilirubin AST ALT Alkaline Phosphatase Total Protein Albumin Methylmalonic Acid
--- NOTE | 2024-12-31 16:10 | PM.PNNEP ---
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 s/p RENAL BIOPSY (on 12/22) with findings noted: diabetic nephropathy significant interstitial fibrosis/tubular atrophy noted as well fluctuating urine output noted however, BUN + creatinine continue to rise without dialytic support last HD on 12/27 - HD today check 24hr urine collection over the weekend (2) Stage 3b chronic kidney disease: Code(s): N18.32 - Chronic kidney disease, stage 3b Status: Chronic Assessment and Plan: baseline creatinine runs around 1.7 - 2.3mg/dl secondary to diabetes (as noted by renal biopsy) and hypertension (3) Pneumonia: Code(s): J18.9 - Pneumonia, unspecified organism Status: Acute Assessment and Plan: admission CXR with bibasilar infiltrates completed course of antibiotics respiratory status stable (4) Heart failure with mildly reduced ejection fraction: Code(s): I50.22 - Chronic systolic (congestive) heart failure Status: Acute Assessment and Plan: known history repeat Echo (12/18) noted: severely reduced systolic function with EF 25-30% diastolic dysfunction mild valvular disease moderate pulmonary hypertension CXR with cardiomegaly, bibasilar infiltrates and small pleural effusions Entresto and diuretics on hold given #1 removing fluid with dialysis not opposed to re-start entresto if necessary Cardiology following (5) Encephalopathy: Code(s): G93.40 - Encephalopathy, unspecified Status: Acute Assessment and Plan: still with intermittent confusion doubt uremia playing a role given improvement in BUN testing to date noted: ammonia level is okay B12 and folate are okay WBC okay and no fevers so unlikely to be related to infection aodium good magnesium and calcium stable CT of brain normal ABGs reasonable Neurology recommendations noted (6) Atrial flutter with rapid ventricular response: Code(s): I48.92 - Unspecified atrial flutter Status: Acute Assessment and Plan: rate control strategy on heparin gtt for anticoagulation (7) Transaminitis: Code(s): R74.01 - Elevation of levels of liver transaminase levels Status: Deleted Assessment and Plan: normal earlier in November 2024 hepatitis panel negative abd US showing cholelithiasis and mildly dilated CBD; liver is normal in appearance holding statin liver biopsy (on 12/21) noted: ongestive hepatopathy and congestive hepatic fibrosis improving (8) Anemia: Code(s): D64.9 - Anemia, unspecified Status: Acute Assessment and Plan: related to ELEANOR, CKD, and acute illness Epogen with HD as needed follow trend of H/H (9) Peripheral vascular disease: Code(s): I73.9 - Peripheral vascular disease, unspecified Status: Acute Assessment and Plan: known history on zetia but statin on hold given elevated LFTs complicated by ongoing smoking arterial dopplers noted (10) Diabetes mellitus type 2 with complications: Code(s): E11.8 - Type 2 diabetes mellitus with unspecified complications Status: Chronic Assessment and Plan: follow accu-cheks glycemic control per hospitalist Will continue to follow. Subjective Date/time seen: 12/31/24 16:10 Interval history: Follow-up for acute kidney injury/acute renal failure on chronic kidney disease. Tolerated dialysis treatment at the time of my visit (seen on HD at 4:00PM); more confused at night in association with itching -- received zyprexa and benadryl; otherwise, no acute distress noted when seen. Exam Narrative: General: elderly male in NAD but confused Heart: tachycardic; normal S1 and S2; no rub Lungs: coarse breath sounds Abdomen: obese but soft, nontender, nondistended, positive bowel sounds Extremities: no cyanosis or clubbing; 1+ edema in RLE; s/p left AKA Skin: warm and dry Objective Data Vital Signs Vital Signs: Vital Signs Temp Pulse Resp BP Pulse Ox O2 Del Method 12/31/24 15:32 116 H 107/76 12/31/24 14:00 97.7 F 112 H 18 102/75 97 12/31/24 08:10 107 H 12/31/24 08:10 Room Air 12/31/24 06:00 97.3 F L 110 H 20 106/84 97 12/31/24 05:07 120 H 12/31/24 04:00 119 H 12/31/24 00:00 95 12/30/24 21:53 97.5 F L 112 H 14 101/69 92 12/30/24 20:33 119 H 12/30/24 20:00 114 H Intake/Output Intake/Output: Intake & Output 12/28/24 12/29/24 12/30/24 12/31/24 23:59 23:59 23:59 23:59 Intake Total 3267.7 407.8 245.7 589.4 Output Total 800 225 300 50 Balance 2467.7 182.8 -54.3 539.4 Meds/Results Medications: Active Medications Generic Name Dose Route Start Last Admin Trade Name Freq PRN Reason Stop Dose Admin Acetaminophen 650 mg 12/31/24 12:08 Acetaminophen 650 Mg Suppository RECTAL Q6H PRN Mild Pain (1-3) or Fever Aspirin 81 mg 12/20/24 08:00 12/31/24 09:53 Aspirin 81 Mg Chewable Tablet PO Not Given DAILY@0800 [facility] Calcium Carbonate 200 mg 12/18/24 22:39 Calcium Carbonate (Tums) 500 Mg (200 Mg Elemental) PO Q6H PRN Indigestion Dextrose 12.5 gm 12/17/24 22:39 Dextrose 50% 25 Gm/50 Ml Syringe IV PUSH PRN PRN Hypoglycemia Protocol Docusate Sodium 100 mg 12/23/24 21:00 12/31/24 09:52 Docusate Sodium 100 Mg Capsule PO Not Given Q12HR [facility] Ezetimibe 10 mg 12/18/24 09:00 12/31/24 09:53 Ezetimibe 10 Mg Tablet PO Not Given DAILY [facility] Epoetin Oscar-epbx 4,000 units 12/31/24 17:09 Epoetin Oscar-Epbx 4,000 Units/Ml Vial IV PUSH 12/31/24 17:10 ONCE ONE Glucagon 1 mg 12/17/24 22:39 Glucagon For Inj 1 Mg Vial IM PRN PRN Hypoglycemia Protocol Glucose 15 gm 12/17/24 22:39 Glucose Oral Gel 15 Gm Of Glucse In 37.5 Gm Tube PO PRN PRN Hypoglycemia Protocol Heparin Sodium (Porcine) 7,500 units 12/27/24 14:06 12/31/24 09:57 Heparin Sodium 5,000 Units/Ml Vial IV PUSH 7,500 units PRN PRN Administration aPTT less than 55 seconds Heparin Sodium (Porcine) 3,500 units 12/27/24 14:06 12/28/24 00:06 Heparin Sodium 5,000 Units/Ml Vial IV PUSH 3,500 units PRN PRN Administration aPTT 55 - 70 seconds Dextrose 1,000 mls @ 100 mls/hr 12/17/24 22:39 Dextrose 5% 1,000 Ml IVPB PRN PRN Hypoglycemia Protocol Albumin Human 50 mls @ 999 mls/hr 12/22/24 05:43 Albutein IVPB 01/21/25 05:42 Q10M PRN HYPOTENSION Heparin Sodium/Dextrose 25,000 units in 250 mls @ 19 mls/hr 12/27/24 14:10 12/31/24 15:53 Heparin Sodium/D5w 100 Units/Ml IV CONT 1,900 units/hr .[id number] REGINA 19 mls/hr Administration Protocol 1,900 UNITS/HR Insulin Aspart 2 - 5 units 12/29/24 12:00 12/31/24 12:29 Insulin Aspart (*Bkc) 100 Units/Ml SUB-Q Not Given TIDWM [facility] Protocol Insulin Aspart 2 - 5 units 12/29/24 21:00 12/30/24 23:11 Insulin Aspart (*Bkc) 100 Units/Ml SUB-Q Not Given HS [facility] Protocol Levothyroxine Sodium 250 mcg 12/21/24 06:30 12/31/24 05:07 Levothyroxine Sodium 125 Mcg Tablet PO 250 mcg [email or web address] REGINA Administration Levothyroxine Sodium 125 mcg 12/26/24 06:30 12/26/24 08:18 Levothyroxine Sodium 125 Mcg Tablet PO Not Given Mitchell@0630 [facility] Metoprolol Tartrate 25 mg 12/28/24 14:00 12/31/24 05:07 Metoprolol Tartrate 25 Mg Tablet PO 25 mg Q8HR [facility] Administration Nicotine 1 patch 12/17/24 22:45 12/31/24 09:58 Nicotine (*Pbkc) 21 Mg Patch TRANSDERM 1 patch DAILY [facility] Administration Ondansetron HCl 4 mg 12/17/24 16:18 12/30/24 20:53 Ondansetron Inj 4 Mg/2 Ml Vial IV PUSH 4 mg Q4H PRN Administration Nausea Quetiapine Fumarate 25 mg 12/31/24 21:00 Quetiapine Fumarate 25 Mg Tablet PO HS REGINA Sertraline HCl 100 mg 12/18/24 09:00 12/31/24 09:53 Sertraline Hcl 50 Mg Tablet PO Not Given DAILY REGINA Vitamin D 1,000 units 12/31/24 09:00 12/31/24 09:53 Cholecalciferol 1,000 Units Tablet PO Not Given DAILY REGINA Radiology Results: ITS Impressions Lumbar Spine X-Ray 12/17/24 15:44 IMPRESSION: Anterior loss of volume of L1 which is most likely chronic. MRI evaluation advised. Otherwise, No acute osseous abnormality lumbar spine. Degenerative disc disease at the level of L4-L5. Venous Doppler Study 12/18/24 13:13 IMPRESSION: 1. No deep venous thrombosis. Abdomen Ultrasound 12/18/24 13:18 IMPRESSION: 1. Cholelithiasis. No evidence of acute cholecystitis. 2. Mildly dilated common duct. Renal Ultrasound 12/18/24 13:21 IMPRESSION: 1. Normal kidney sizes. No hydronephrosis. Lumbar Spine MRI 12/18/24 15:23 IMPRESSION: Limited examination secondary to motion artifact. No abnormal signal intensity or contrast enhancement is identified within the vertebral body of L1 to suggest acute traumatic injury. Within the visualized intervertebral disc spaces, moderate degenerative disease is noted, as detailed above. Duplex Scan Lower Extremity Artery 12/18/24 21:35 IMPRESSION: Abnormal peak systolic velocity and waveform morphology suggesting a popliteal or tibioperoneal trunk stenosis. Three-vessel blood flow into the right calf with single vessel blood flow into the right foot (on the submitted images) MRCP 12/21/24 08:48 IMPRESSION: 1. Study terminated at patient request prior to obtaining the normal complement of sequences including the MRCP images and which along with some motion artifact on the obtained sequences moderately limits evaluation. 2. Anasarca with small left and moderate-sized right pleural effusions, small amount of ascites and extensive body wall, as enteric and retroperitoneal edema. 3. Normal-appearing gallbladder with no evident cholelithiasis and with no intra or extrahepatic biliary ductal dilation. Sensitivity for tiny gallstones which were suggested on prior ultrasound is limited by motion artifact. 4. Cardiomegaly. Liver Biopsy Ultrasound 12/22/24 10:51 IMPRESSION: 1. Successful Ultrasound-guided random liver biopsy. Renal Biopsy Ultrasound 12/23/24 10:32 IMPRESSION: 1. Ultrasound-guided random left kidney core needle biopsy. Head CT 12/25/24 17:06 IMPRESSION: No acute intracranial process. Chest X-Ray 12/31/24 14:34 Impression: Small pleural effusions with bibasilar pulmonary edema/atelectasis. Support line, as above. Labs Labs: Laboratory Tests 12/31/24 06:36 12/31/24 06:36 Calcium 7.5 L Phosphorus 5.0 H Magnesium 2.0 Total Bilirubin 0.8 AST 48 ALT 111 H Alkaline Phosphatase 173 H Total Protein 5.0 L Albumin 2.5 L Microbiology 12/25/24 15:04 Blood Blood Culture - Final 12/25/24 15:12 Blood Blood Culture - Final
[2024-12-31 16:29] LABS: Partial Thromboplastin Time 97.4 Seconds (22.3-36.8)
[2024-12-31] MEDS: EPOETIN ALFA-EPBX 4,000 UNITS/ML VIAL 4000 UNITS IV PUSH (17:33)
[2024-12-31 18:04] LABS: Glucose Point of Care 86 mg/dl (65-105)
[2024-12-31] MEDS: HEPARIN SODIUM 1,000 UNITS/ML VIAL 2000 UNITS (20:00)
[2024-12-31] MEDS: DOCUSATE SODIUM 100 MG CAPSULE PO (21:29)
[2024-12-31] MEDS: QUEtiapine FUMARATE 25 MG TABLET PO (21:29)
[2024-12-31 22:24] LABS: Partial Thromboplastin Time 92.7 Seconds (22.3-36.8)
[2024-12-31 22:29] LABS: Glucose Point of Care 84 mg/dl (65-105)
[2025-01-01] VITALS (9 sets, daily range): BP systolic 103–106; BP diastolic 72–77; PULSE 94–122; RESP 16–20; TEMP 36.4–36.6; O2SAT 95–97
[2025-01-01] MEDS: HYDROcodone/acetaminophen (*CRX) 7.5-325 MG TABLET 1 TAB PO (03:14)
[2025-01-01 06:14] LABS: Basophils Absolute Auto 0.1 K/mm3 (0.0-0.1); Basophils Percent Auto 0.8 % (0.2-1.2); Eosinophils Absolute Auto 0.4 K/mm3 (0-0.3); Eosinophils Percent Auto 4.2 % (0-4.4); Hematocrit 36.3 % (42.0-52.0); Hemoglobin 10.1 g/dL (14.0-18.0); Immature Granulocyte Absolute 0.04 K/mm3 (0.00-0.031); Immature Granulocyte Percent A 0.5 % (0-0.5); Lymphocytes Absolute Auto 1.63 K/mm3 (0.9-3.2); Lymphocytes Percent Auto 19.5 % (18.3-44.2); Mean Corpuscular HGB Conc 27.8 g/dl (32-36); Mean Corpuscular Hemoglobin 24.2 pg (26-34); Mean Corpuscular Volume 86.8 fl (80-100); Mean Platelet Volume 10.3 fl (7.4-10.4); Monocytes Absolute Auto 0.9 K/mm3 (0.1-0.6); Monocytes Percent Auto 10.3 % (2.6-8.5); Neutrophils Absolute Auto 5.4 K/mm3 (1.3-6.7); Neutrophils Percent Auto 64.7 % (45.5-73.1); Platelet Count Result 227 k/mm3 (150-375); Red Blood Count 4.18 M/mm3 (4.6-6.20); Red Cell Distribution Width 19.2 % (11.5-14.5); White Blood Count 8.4 K/mm3 (4.5-10.0)
[2025-01-01] MEDS: METOPROLOL TARTRATE 25 MG TABLET PO ×3 (06:17→23:04)
[2025-01-01] MEDS: LEVOTHYROXINE SODIUM 125 MCG TABLET 250 MCG PO (06:18)
[2025-01-01 06:26] LABS: Alanine Aminotransferase 100 U/L (6-50); Albumin Level 2.5 g/dL (3.5-5.1); Alkaline Phosphatase 161 U/L (38-126); Anion Gap 8 mmol/L (4-12); Aspartate Amino Transferase 41 U/L (17-59); Bilirubin,Total 0.8 mg/dL (0.2-1.3); Blood Urea Nitrogen 28 mg/dL (9-20); Calcium 7.9 mg/dL (8.4-10.2); Carbon Dioxide 23 mmol/L (22-30); Chloride 105 mmol/L (98-107); Estimated CRCL calculation 38 ml/min; Estimated Glomerular Filt Rate 28; Glucose 72 mg/dL (65-110); Phosphorus 3.7 mg/dL (2.5-4.5); Potassium 4.1 mmol/L (3.4-5.0); Sodium 136 mmol/L (137-145)
[2025-01-01] MEDS: HEPARIN SOD/D5W 100 UNITS/ML 25,000 UNITS/250 ML BAG 19 UNITS IV CONT ×2 (06:43→23:05)
[2025-01-01 07:20] LABS: Anisocytosis 1+; Burr Cells 1+; Hypochromasia 1+; Ovalocytes 1+; Platelet Estimate Adequate (Adequate)
[2025-01-01 07:21] LABS: Acanthocytes 1+; Schistocytes None Seen
[2025-01-01 07:37] LABS: Glucose Point of Care 86 mg/dl (65-105)
[2025-01-01] MEDS: NICOTINE (*PBKC) 21 MG PATCH 1 PATCH TRANSDERM (08:05)
[2025-01-01] MEDS: DOCUSATE SODIUM 100 MG CAPSULE PO ×2 (08:06→23:03)
[2025-01-01] MEDS: SERTRALINE HCL 50 MG TABLET 100 MG PO (08:06)
[2025-01-01] MEDS: EZETIMIBE 10 MG TABLET PO (08:06)
[2025-01-01] MEDS: CHOLECALCIFEROL 1,000 UNITS TABLET 1000 UNITS PO (08:06)
--- NOTE | 2025-01-01 10:01 | P.PNNP_ITS ---
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 * s/p RENAL BIOPSY (on 12/22) with findings noted: * diabetic nephropathy * significant interstitial fibrosis/tubular atrophy noted as well * fluctuating urine output noted * however, BUN + creatinine continue to rise without dialytic support * last HD on 12/31 * checking 24hr urine collection tomorrow (2) Stage 3b chronic kidney disease: Code(s): N18.32 - Chronic kidney disease, stage 3b Status: Chronic Assessment and Plan: * baseline creatinine runs around 1.7 - 2.3mg/dl * secondary to diabetes (as noted by renal biopsy) and hypertension (3) Pneumonia: Code(s): J18.9 - Pneumonia, unspecified organism Status: Acute Assessment and Plan: * admission CXR with bibasilar infiltrates * completed course of antibiotics * respiratory status stable (4) Heart failure with mildly reduced ejection fraction: Code(s): I50.22 - Chronic systolic (congestive) heart failure Status: Acute Assessment and Plan: * known history * repeat Echo (12/18) noted: * severely reduced systolic function with EF 25-30% * diastolic dysfunction * mild valvular disease * moderate pulmonary hypertension * CXR with cardiomegaly, bibasilar infiltrates and small pleural effusions * Entresto and diuretics on hold given #1 * removing fluid with dialysis * not opposed to re-start entresto if necessary * Cardiology following (5) Encephalopathy: Code(s): G93.40 - Encephalopathy, unspecified Status: Acute Assessment and Plan: * still with intermittent confusion * doubt uremia playing a role given improvement in BUN * testing to date noted: * ammonia level is okay * B12 and folate are okay * WBC okay and no fevers so unlikely to be related to infection * aodium good * magnesium and calcium stable * CT of brain normal * ABGs reasonable * Neurology recommendations noted (6) Atrial flutter with rapid ventricular response: Code(s): I48.92 - Unspecified atrial flutter Status: Acute Assessment and Plan: * rate control strategy * on heparin gtt for anticoagulation (7) Transaminitis: Code(s): R74.01 - Elevation of levels of liver transaminase levels Status: Deleted Assessment and Plan: * normal earlier in November 2024 * hepatitis panel negative * abd US showing cholelithiasis and mildly dilated CBD; liver is normal in appearance * holding statin * liver biopsy (on 12/21) noted: * ongestive hepatopathy and congestive hepatic fibrosis * improving (8) Anemia: Code(s): D64.9 - Anemia, unspecified Status: Acute Assessment and Plan: * related to ELEANOR, CKD, and acute illness * Epogen with HD as needed * follow trend of H/H (9) Peripheral vascular disease: Code(s): I73.9 - Peripheral vascular disease, unspecified Status: Acute Assessment and Plan: * known history * on zetia but statin on hold given elevated LFTs * complicated by ongoing smoking * arterial dopplers noted (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 L Subjective Date/time seen: 01/01/25 10:01 Interval history: Follow-up for acute kidney injury/acute renal failure on chronic kidney disease. Tolerated dialysis treatment yesterday without any issues or problems; mentation seems a bit better -- more awake/alert and with less confusion when seen; no apparent distress noted; no other acute issues/events overnight or earlier this morning. Exam 2 Narrative: General: elderly male in NAD but confused Heart: tachycardic; normal S1 and S2; no rub Lungs: coarse breath sounds Abdomen: obese but soft, nontender, nondistended, positive bowel sounds Extremities: no cyanosis or clubbing; 1+ edema in RLE; s/p left AKA Skin: warm and intact Objective Data Vital Signs Vital Signs: Vital Signs Temp Pulse Resp BP Pulse Ox O2 Del Method FiO2 01/01/25 08:00 106 H 01/01/25 08:00 106 H 16 95 Room Air 0 01/01/25 06:17 106 H 01/01/25 05:16 97.6 F 94 16 104/74 95 01/01/25 04:00 110 H 01/01/25 00:00 106 H 12/31/24 21:29 112 H 12/31/24 20:53 97.6 F 123 H 18 122/82 97 12/31/24 20:00 121 H 12/31/24 20:00 97.7 F 120 H 18 121/85 97 12/31/24 19:50 120 H 127/85 12/31/24 19:45 132 H 133/85 12/31/24 19:30 120 H 121/84 12/31/24 19:15 120 H 123/81 12/31/24 19:00 120 H 133/76 12/31/24 18:45 121 H 120/83 12/31/24 18:30 107 H 110/72 12/31/24 18:15 100 124/68 12/31/24 18:00 111 H 112/73 12/31/24 17:45 109 H 106/69 12/31/24 17:30 107 H 112/72 12/31/24 17:15 108 H 107/79 12/31/24 16:45 110 H 111/72 12/31/24 16:31 110 H 117/68 12/31/24 15:32 116 H 107/76 12/31/24 15:24 97.9 F 119 H 18 105/75 97 12/31/24 14:00 97.7 F 112 H 18 102/75 97 12/31/24 12:00 111 H Intake/Output Intake/Output: Intake & Output 12/29/24 12/30/24 12/31/24 01/01/25 23:59 23:59 23:59 23:59 Intake Total 407.8 245.7 1094.7 936.6 Output Total 709 805 5128 375 Balance 182.8 -54.3 -206.3 561.6 Meds/Results Medications: Active Medications Generic Name Dose Route Start Last Admin Trade Name Freq PRN Reason Stop Dose Admin Acetaminophen 650 mg 12/31/24 12:08 Acetaminophen 650 Mg Suppository RECTAL Q6H PRN Mild Pain (1-3) or Fever Aspirin 81 mg 12/20/24 08:00 01/01/25 10:19 Aspirin 81 Mg Chewable Tablet PO 81 mg DAILY@0800 REGINA Administration Calcium Carbonate 200 mg 12/18/24 22:39 Calcium Carbonate (Tums) 500 Mg (200 Mg Elemental) PO Q6H PRN Indigestion Dextrose 12.5 gm 12/17/24 22:39 Dextrose 50% 25 Gm/50 Ml Syringe IV PUSH PRN PRN Hypoglycemia Protocol Docusate Sodium 100 mg 12/23/24 21:00 01/01/25 08:06 Docusate Sodium 100 Mg Capsule PO 100 mg Q12HR REGINA Administration Ezetimibe 10 mg 12/18/24 09:00 01/01/25 08:06 Ezetimibe 10 Mg Tablet PO 10 mg DAILY REGINA Administration Glucagon 1 mg 12/17/24 22:39 Glucagon For Inj 1 Mg Vial IM PRN PRN Hypoglycemia Protocol Glucose 15 gm 12/17/24 22:39 Glucose Oral Gel 15 Gm Of Glucse In 37.5 Gm Tube PO PRN PRN Hypoglycemia Protocol Heparin Sodium (Porcine) 7,500 units 12/27/24 14:06 12/31/24 09:57 Heparin Sodium 5,000 Units/Ml Vial IV PUSH 7,500 units PRN PRN Administration aPTT less than 55 seconds Heparin Sodium (Porcine) 3,500 units 12/27/24 14:06 12/28/24 00:06 Heparin Sodium 5,000 Units/Ml Vial IV PUSH 3,500 units PRN PRN Administration aPTT 55 - 70 seconds Dextrose 1,000 mls @ 100 mls/hr 12/17/24 22:39 Dextrose 5% 1,000 Ml IVPB PRN PRN Hypoglycemia Protocol Albumin Human 50 mls @ 999 mls/hr 12/22/24 05:43 Albutein IVPB 01/21/25 05:42 Q10M PRN HYPOTENSION Heparin Sodium/Dextrose 25,000 units in 250 mls @ 19 mls/hr 12/27/24 14:10 01/01/25 06:43 Heparin Sodium/D5w 100 Units/Ml IV CONT 1,900 units/hr .[id number] REGINA 19 mls/hr Administration Protocol 1,900 UNITS/HR Insulin Aspart 2 - 5 units 12/29/24 12:00 01/01/25 08:11 Insulin Aspart (*Bkc) 100 Units/Ml SUB-Q Not Given TIDWM [facility] Protocol Insulin Aspart 2 - 5 units 12/29/24 21:00 12/31/24 21:27 Insulin Aspart (*Bkc) 100 Units/Ml SUB-Q Not Given HS [facility] Protocol Levothyroxine Sodium 250 mcg 12/21/24 06:30 01/01/25 06:18 Levothyroxine Sodium 125 Mcg Tablet PO 250 mcg [email or web address] RE[facility] Administration Levothyroxine Sodium 125 mcg 12/26/24 06:30 12/26/24 08:18 Levothyroxine Sodium 125 Mcg Tablet PO Not Given Mitchell@0630 [facility] Metoprolol Tartrate 25 mg 12/28/24 14:00 01/01/25 06:17 Metoprolol Tartrate 25 Mg Tablet PO 25 mg Q8HR REGINA Administration Nicotine 1 patch 12/17/24 22:45 01/01/25 08:05 Nicotine (*Pbkc) 21 Mg Patch TRANSDERM 1 patch DAILY RE[facility] Administration Ondansetron HCl 4 mg 12/17/24 16:18 12/30/24 20:53 Ondansetron Inj 4 Mg/2 Ml Vial IV PUSH 4 mg Q4H PRN Administration Nausea Quetiapine Fumarate 25 mg 12/31/24 21:00 12/31/24 21:29 Quetiapine Fumarate 25 Mg Tablet PO 25 mg HS REGINA Administration Sertraline HCl 100 mg 12/18/24 09:00 01/01/25 08:06 Sertraline Hcl 50 Mg Tablet PO 100 mg DAILY REGINA Administration Vitamin D 1,000 units 12/31/24 09:00 01/01/25 08:06 Cholecalciferol 1,000 Units Tablet PO 1,000 units DAILY REGINA Administration Radiology Results: ITS Impressions Lumbar Spine X-Ray 12/17/24 15:44 IMPRESSION: Anterior loss of volume of L1 which is most likely chronic. MRI evaluation advised. Otherwise, No acute osseous abnormality lumbar spine. Degenerative disc disease at the level of L4-L5. Venous Doppler Study 12/18/24 13:13 IMPRESSION: 1. No deep venous thrombosis. Abdomen Ultrasound 12/18/24 13:18 IMPRESSION: 1. Cholelithiasis. No evidence of acute cholecystitis. 2. Mildly dilated common duct. Renal Ultrasound 12/18/24 13:21 IMPRESSION: 1. Normal kidney sizes. No hydronephrosis. Lumbar Spine MRI 12/18/24 15:23 IMPRESSION: Limited examination secondary to motion artifact. No abnormal signal intensity or contrast enhancement is identified within the vertebral body of L1 to suggest acute traumatic injury. Within the visualized intervertebral disc spaces, moderate degenerative disease is noted, as detailed above. Duplex Scan Lower Extremity Artery 12/18/24 21:35 IMPRESSION: Abnormal peak systolic velocity and waveform morphology suggesting a popliteal or tibioperoneal trunk stenosis. Three-vessel blood flow into the right calf with single vessel blood flow into the right foot (on the submitted images) MRCP 12/21/24 08:48 IMPRESSION: 1. Study terminated at patient request prior to obtaining the normal complement of sequences including the MRCP images and which along with some motion artifact on the obtained sequences moderately limits evaluation. 2. Anasarca with small left and moderate-sized right pleural effusions, small amount of ascites and extensive body wall, as enteric and retroperitoneal edema. 3. Normal-appearing gallbladder with no evident cholelithiasis and with no intra or extrahepatic biliary ductal dilation. Sensitivity for tiny gallstones which were suggested on prior ultrasound is limited by motion artifact. 4. Cardiomegaly. Liver Biopsy Ultrasound 12/22/24 10:51 IMPRESSION: 1. Successful Ultrasound-guided random liver biopsy. Renal Biopsy Ultrasound 12/23/24 10:32 IMPRESSION: 1. Ultrasound-guided random left kidney core needle biopsy. Head CT 12/25/24 17:06 IMPRESSION: No acute intracranial process. Chest X-Ray 12/31/24 14:34 Impression: Small pleural effusions with bibasilar pulmonary edema/atelectasis. Support line, as above. Labs Labs: Laboratory Tests 01/01/25 05:43 01/01/25 05:43 Calcium 7.9 L Phosphorus 3.7 Magnesium 2.0 Total Bilirubin 0.8 AST 41 ALT 100 H Alkaline Phosphatase 161 H Total Protein 5.0 L Albumin 2.5 L
[2025-01-01] MEDS: ASPIRIN 81 MG CHEWABLE TABLET PO (10:19)
[2025-01-01 11:50] LABS: Glucose Point of Care 149 mg/dl (65-105)
--- NOTE | 2025-01-01 12:29 | PM.IMPN ---
Progress Note: A&P Assessment and Plan (1) Altered mental status: Code(s): R41.82 - Altered mental status, unspecified Status: Acute Assessment and Plan: Patient has developed confused since 12/25/2024. He was receiving ativan and haldol prn for agitation Ammonia negative ABG unremarkable. B12 normal. TSH as mentioned below. Vit D <12.8 CT head unremarkable. CXR showing small left and small-mod right pleural effusion with associated atelectasis and/or PNA UA noted so started empirically on ceftriaxone BCx (12/25) NGTD. UCx 12/25 negative so Rocephin stopped. EEG 12/28 - abnormal record due to the absence of a normal background rhythm but without evidence of paroxysmal activity Stopped all of his sedating mediations and Seroquel added Mental status better today. Continue to hold all sedating medications. Increase activity and try to keep awake most of the day today. Continue Seroquel at night. (2) Abnormal transaminases: Code(s): R74.8 - Abnormal levels of other serum enzymes Status: Acute Assessment and Plan: On admission,LFTs were mildly elevated. Hepatitis panel negative. Abd US showing cholelithiasis and mildly dilated CBD. Liver was normal in appearance. Lipitor held. Repeat levels on 12/20 much worse with AST 1539, ALT 1066, AP 479, normal bili. Lactic acid 1.1. Acet level <10. [place] due to congestion from heart failure Consider autoimmune with + IV fluids stopped. GI consulted and appreciate their input. Patient was able to complete some of the MRCP. This showed anasarca, small left and moderate size right pleural effusion, small amount of ascites, extensive body edema and cardiomegaly. He had a normal appearing gallbladder with no evidence of cholelithiasis no intra or extrahepatic biliary ductal dilatation. Sensitivity was limited. Status post liver biopsy 12/22/2024: congestive hepatopathy and congestive hepatic fibrosis score 1. LFTs improving. [place] related to hepatic congestion. Follow. (3) Acute kidney injury: Code(s): N17.9 - Acute kidney failure, unspecified Status: Acute Assessment and Plan: Patient presents with weakness and may have had underlying PNA. Cr on admission 4.3. Baseline Cr 2.1-2.9 range. He was started on IV fluids. Urine eos negative. Eve 42. Total CK 371. Urine prot/Cr 4.7gm consistent with nephrotic syndrome. Complement normal. Hx of + 1:640. Renal US normal. Nephrology consulted and appreciate their input. Cryoglobulin negative. Creatinine was trending up; HD catheter placement 12/22/2024 and was started on hemodialysis. Renal biopsy 12/23/2024 with advanced diabetic glomerulosclerosis class 4. 50-60% tubular atrophy and interstitial fibrosis. Last dialysis 12/31/2024 UOP poor. Cr rising. Appreciate nephrology input. Consider moving forward with tunneled cath? (4) Pneumonia: Code(s): J18.9 - Pneumonia, unspecified organism Status: Acute Assessment and Plan: Patient presents with weakness after having cold and cough symptoms for 3 weeks. No benefit after 2 Z-packs. CXR showing bibasilar infiltrates. No fevers or hypoxia. WBC 12K. He was started on Rocephin and Doxycycline. WBC normal now. BCx NGTD. MRSA screen negative. Urine Ag negative. Sputum Cx growing MSSA and yeast. He completed a 7 day course. Rocephin restarted for possible UTI but UCx negative so stopped. Follow off abx (last dose of Rocephin was 12/29 at 1215) (5) Heart failure with mildly reduced ejection fraction: Code(s): I50.22 - Chronic systolic (congestive) heart failure Status: Acute Assessment and Plan: Echo showing severely reduced systolic fxn with EF 25-30% with diastolic dysfunction, mild valve disease and moderate pulmonary HTN. BNP >30K. CXR showing CMG, bibasilar infiltrates and small pleural effusions. Entresto and finerenone on hold. Diuretics not listed on home med list. Holding Entresto. Monitor UOP, renal fxn, daily weights and fluid balance. (6) Atrial flutter with rapid ventricular response: Code(s): I48.92 - Unspecified atrial flutter Status: Acute Assessment and Plan: New onset atrial fibrillation. On metoprolol. On heparin drip for now. 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 The patient's blood glucose was reviewed Patient was on an insulin pump at home. Concern patient was unable to handle his pump here so this was held. Glucose remains well controlled off the insulin pump. He is eating some Continue AccuCheks covering with sliding scale. Hypoglycemia protocol available as needed. Continue to monitor (8) Chronic kidney disease, stage 4 (severe): Code(s): N18.4 - Chronic kidney disease, stage 4 (severe) Status: Acute Assessment and Plan: As above (9) Status post above-knee amputation of left lower extremity: Code(s): Z89.612 - Acquired absence of left leg above knee Status: Acute Assessment and Plan: Patient with known PAD. Venous doppler RLE negative for DVT. Arterial doppler RLE suggestive of a popliteal or tibioperoneal trunk stenosis. There is three-vessel blood flow into the right calf with single vessel blood flow into the right foot. Continue Zetia and ASA. Resume Lipitor when able. Plan # Hypothyroidism: Review of Endocrine note from 11/12 showing he was to skip the Friday Synthroid dose. TSH is 46.4. Free T4 is low-normal at 0.96. Total T3 is 0.5. Patient is currently on 250 mcg daily except no meds on Friday. Suspect the skipped dose has resulted in the change in his thyroid panel. Will adjust to 250mcg daily except added 125mcg on Sundays. # Tobacco dependence: Patient was educated about the benefits of smoking cessation # urinary retention status post cystoscopy with passive dilation of mild bulbar narrowing. Complex Hernandez catheter placement with 16 [place] coude on 12/20/2024. Maintain Hernandez catheter until improvement in volume status and mobility. # Low back pain - Lumbar MRI performed but no acute finding seen on limited imaging due to motion artifact. # meth abuse - Possible meth abuse to explain some of his mental status confusion prior to admission. Will discuss when patient more awake and alert. # DVT prophylaxis - Heparin # Code status - full Subjective Date/time seen: 01/01/25 12:29 Interval history: 64yo male smoker with hx of TIA, CHF, HTN CKD, DM with PN, status post left [id number] amputation related to infection Charcot foot, and hypothyroidism who presented to the emergency department via private vehicle with complaints of weakness and overall not feeling well. Given [place] x1 overnight otherwise no issues. More awake and alert. Denies CP and SOB. No complaints. Exam Narrative: AF 97.6 104/74 106 16 95% RA Gen - NARD; off restraints Neck - right IJ HD catheter secured. Chest - CTA bilaterally anteriroly. nml RR CV - irregularly irregular. Tele showing no significant dysrhythmias Abd - Soft, obese, NT, mild/persistent flank edema - Hernandez secured draining martinez colored urine Ext - Left AKA. no RLE pedal edema Neuro - AOx4. Skin - Warm and dry. multiple wounds bilateral hands in varius stages of healing. dry RLE skin Objective Data Vital Signs Vital Signs: Vital Signs - 24 hr 12/31/24 14:00 12/31/24 15:24 12/31/24 15:32 Temperature 97.7 F 97.9 F Pulse Rate 112 H 119 H 116 H Respiratory Rate 18 18 Blood Pressure 102/75 105/75 107/76 Pulse Oximetry 97 97 Oxygen Delivery Fraction of Inspired Oxygen 12/31/24 16:31 12/31/24 16:45 12/31/24 17:15 Temperature Pulse Rate 110 H 110 H 108 H Respiratory Rate Blood Pressure 117/68 111/72 107/79 Pulse Oximetry Oxygen Delivery Fraction of Inspired Oxygen 12/31/24 17:30 12/31/24 17:45 12/31/24 18:00 Temperature Pulse Rate 107 H 109 H 111 H Respiratory Rate Blood Pressure 112/72 106/69 112/73 Pulse Oximetry Oxygen Delivery Fraction of Inspired Oxygen 12/31/24 18:15 12/31/24 18:30 12/31/24 18:45 Temperature Pulse Rate 100 107 H 121 H Respiratory Rate Blood Pressure 124/68 110/72 120/83 Pulse Oximetry Oxygen Delivery Fraction of Inspired Oxygen 12/31/24 19:00 12/31/24 19:15 12/31/24 19:30 Temperature Pulse Rate 120 H 120 H 120 H Respiratory Rate Blood Pressure 133/76 123/81 121/84 Pulse Oximetry Oxygen Delivery Fraction of Inspired Oxygen 12/31/24 19:45 12/31/24 19:50 12/31/24 20:00 Temperature 97.7 F Pulse Rate 132 H 120 H 120 H Respiratory Rate 18 Blood Pressure 133/85 127/85 121/85 Pulse Oximetry 97 Oxygen Delivery Fraction of Inspired Oxygen 12/31/24 20:00 12/31/24 20:53 12/31/24 21:29 Temperature 97.6 F Pulse Rate 121 H 123 H 112 H Respiratory Rate 18 Blood Pressure 122/82 Pulse Oximetry 97 Oxygen Delivery Fraction of Inspired Oxygen 01/01/25 00:00 01/01/25 04:00 01/01/25 05:16 Temperature 97.6 F Pulse Rate 106 H 110 H 94 Respiratory Rate 16 Blood Pressure 104/74 Pulse Oximetry 95 Oxygen Delivery Fraction of Inspired Oxygen 01/01/25 06:17 01/01/25 08:00 01/01/25 08:00 Temperature Pulse Rate 106 H 106 H 106 H Respiratory Rate 16 Blood Pressure Pulse Oximetry 95 Oxygen Delivery Room Air Fraction of Inspired Oxygen 0 Intake/Output Intake/Output: Intake & Output 12/29/24 12/30/24 12/31/24 01/01/25 23:59 23:59 23:59 23:59 Intake Total 407.8 245.7 1094.7 936.6 Output Total 716 747 7782 375 Balance 182.8 -54.3 -206.3 561.6 Meds/Results Medications: Active Medications Generic Name Dose Route Start Last Admin Trade Name Freq PRN Reason Stop Dose Admin Acetaminophen 650 mg 12/31/24 12:08 Acetaminophen 650 Mg Suppository RECTAL Q6H PRN Mild Pain (1-3) or Fever Aspirin 81 mg 12/20/24 08:00 01/01/25 10:19 Aspirin 81 Mg Chewable Tablet PO 81 mg DAILY@0800 [facility] Administration Calcium Carbonate 200 mg 12/18/24 22:39 Calcium Carbonate (Tums) 500 Mg (200 Mg Elemental) PO Q6H PRN Indigestion Dextrose 12.5 gm 12/17/24 22:39 Dextrose 50% 25 Gm/50 Ml Syringe IV PUSH PRN PRN Hypoglycemia Protocol Docusate Sodium 100 mg 12/23/24 21:00 01/01/25 08:06 Docusate Sodium 100 Mg Capsule PO 100 mg Q12HR REGINA Administration Ezetimibe 10 mg 12/18/24 09:00 01/01/25 08:06 Ezetimibe 10 Mg Tablet PO 10 mg DAILY REGINA Administration Glucagon 1 mg 12/17/24 22:39 Glucagon For Inj 1 Mg Vial IM PRN PRN Hypoglycemia Protocol Glucose 15 gm 12/17/24 22:39 Glucose Oral Gel 15 Gm Of Glucse In 37.5 Gm Tube PO PRN PRN Hypoglycemia Protocol Heparin Sodium (Porcine) 7,500 units 12/27/24 14:06 12/31/24 09:57 Heparin Sodium 5,000 Units/Ml Vial IV PUSH 7,500 units PRN PRN Administration aPTT less than 55 seconds Heparin Sodium (Porcine) 3,500 units 12/27/24 14:06 12/28/24 00:06 Heparin Sodium 5,000 Units/Ml Vial IV PUSH 3,500 units PRN PRN Administration aPTT 55 - 70 seconds Dextrose 1,000 mls @ 100 mls/hr 12/17/24 22:39 Dextrose 5% 1,000 Ml IVPB PRN PRN Hypoglycemia Protocol Albumin Human 50 mls @ 999 mls/hr 12/22/24 05:43 Albutein IVPB 01/21/25 05:42 Q10M PRN HYPOTENSION Heparin Sodium/Dextrose 25,000 units in 250 mls @ 19 mls/hr 12/27/24 14:10 01/01/25 06:43 Heparin Sodium/D5w 100 Units/Ml IV CONT 1,900 units/hr .[id number] REGINA 19 mls/hr Administration Protocol 1,900 UNITS/HR Insulin Aspart 2 - 5 units 12/29/24 12:00 01/01/25 08:11 Insulin Aspart (*Bkc) 100 Units/Ml SUB-Q Not Given TIDWM [facility] Protocol Insulin Aspart 2 - 5 units 12/29/24 21:00 12/31/24 21:27 Insulin Aspart (*Bkc) 100 Units/Ml SUB-Q Not Given HS [facility] Protocol Levothyroxine Sodium 250 mcg 12/21/24 06:30 01/01/25 06:18 Levothyroxine Sodium 125 Mcg Tablet PO 250 mcg [id number] [facility] Administration Levothyroxine Sodium 125 mcg 12/26/24 06:30 12/26/24 08:18 Levothyroxine Sodium 125 Mcg Tablet PO Not Given Mitchell@0630 [facility] Metoprolol Tartrate 25 mg 12/28/24 14:00 01/01/25 06:17 Metoprolol Tartrate 25 Mg Tablet PO 25 mg Q8HR [facility] Administration Nicotine 1 patch 12/17/24 22:45 01/01/25 08:05 Nicotine (*Pbkc) 21 Mg Patch TRANSDERM 1 patch DAILY REGINA Administration Ondansetron HCl 4 mg 12/17/24 16:18 12/30/24 20:53 Ondansetron Inj 4 Mg/2 Ml Vial IV PUSH 4 mg Q4H PRN Administration Nausea Quetiapine Fumarate 25 mg 12/31/24 21:00 12/31/24 21:29 Quetiapine Fumarate 25 Mg Tablet PO 25 mg HS REGINA Administration Sertraline HCl 100 mg 12/18/24 09:00 01/01/25 08:06 Sertraline Hcl 50 Mg Tablet PO 100 mg DAILY REGINA Administration Vitamin D 1,000 units 12/31/24 09:00 01/01/25 08:06 Cholecalciferol 1,000 Units Tablet PO 1,000 units DAILY REGINA Administration Radiology Results: ITS Impressions Lumbar Spine X-Ray 12/17/24 15:44 IMPRESSION: Anterior loss of volume of L1 which is most likely chronic. MRI evaluation advised. Otherwise, No acute osseous abnormality lumbar spine. Degenerative disc disease at the level of L4-L5. Venous Doppler Study 12/18/24 13:13 IMPRESSION: 1. No deep venous thrombosis. Abdomen Ultrasound 12/18/24 13:18 IMPRESSION: 1. Cholelithiasis. No evidence of acute cholecystitis. 2. Mildly dilated common duct. Renal Ultrasound 12/18/24 13:21 IMPRESSION: 1. Normal kidney sizes. No hydronephrosis. Lumbar Spine MRI 12/18/24 15:23 IMPRESSION: Limited examination secondary to motion artifact. No abnormal signal intensity or contrast enhancement is identified within the vertebral body of L1 to suggest acute traumatic injury. Within the visualized intervertebral disc spaces, moderate degenerative disease is noted, as detailed above. Duplex Scan Lower Extremity Artery 12/18/24 21:35 IMPRESSION: Abnormal peak systolic velocity and waveform morphology suggesting a popliteal or tibioperoneal trunk stenosis. Three-vessel blood flow into the right calf with single vessel blood flow into the right foot (on the submitted images) MRCP 12/21/24 08:48 IMPRESSION: 1. Study terminated at patient request prior to obtaining the normal complement of sequences including the MRCP images and which along with some motion artifact on the obtained sequences moderately limits evaluation. 2. Anasarca with small left and moderate-sized right pleural effusions, small amount of ascites and extensive body wall, as enteric and retroperitoneal edema. 3. Normal-appearing gallbladder with no evident cholelithiasis and with no intra or extrahepatic biliary ductal dilation. Sensitivity for tiny gallstones which were suggested on prior ultrasound is limited by motion artifact. 4. Cardiomegaly. Liver Biopsy Ultrasound 12/22/24 10:51 IMPRESSION: 1. Successful Ultrasound-guided random liver biopsy. Renal Biopsy Ultrasound 12/23/24 10:32 IMPRESSION: 1. Ultrasound-guided random left kidney core needle biopsy. Head CT 12/25/24 17:06 IMPRESSION: No acute intracranial process. Chest X-Ray 12/31/24 14:34 Impression: Small pleural effusions with bibasilar pulmonary edema/atelectasis. Support line, as above. Labs Labs: Laboratory Results - last 24 hr 12/31/24 12/31/24 12/31/24 16:04 18:01 20:55 WBC RBC Hgb Hct MCV MCH MCHC RDW Plt Count MPV Immature Gran % (Auto) Neut % (Auto) Lymph % (Auto) [place] % (Auto) Eos % (Auto) Baso % (Auto) Lymph # (Auto) [place] # (Auto) Eos # (Auto) Baso # (Auto) Abs Immat Gran (auto) Absolute Neuts (auto) Absolute Nucleated RBC Band Neutrophils % Nucleated RBC % Platelet Estimate Hypochromasia Anisocytosis Ovalocytes [place] Cells Acanthocytes (Spur) Schistocytes APTT 97.4 H Sodium Potassium Chloride Carbon Dioxide Anion Gap BUN Creatinine Estim Creat Clear Calc Estimated GFR Glucose POC Capillary Glucose 86 84 Calcium Phosphorus Magnesium Total Bilirubin AST ALT Alkaline Phosphatase Total Protein Albumin 12/31/24 01/01/25 01/01/25 22:01 05:43 07:34 WBC 8.4 RBC 4.18 L Hgb 10.1 L Hct 36.3 L MCV 86.8 MCH 24.2 L MCHC 27.8 L RDW 19.2 H Plt Count 227 MPV 10.3 Immature Gran % (Auto) 0.5 Neut % (Auto) 64.7 Lymph % (Auto) 19.5 [place] % (Auto) 10.3 H Eos % (Auto) 4.2 Baso % (Auto) 0.8 Lymph # (Auto) 1.63 [place] # (Auto) 0.9 H Eos # (Auto) 0.4 H Baso # (Auto) 0.1 Abs Immat Gran (auto) 0.04 H Absolute Neuts (auto) 5.4 Absolute Nucleated RBC 0.000 Band Neutrophils % Not Reportable Nucleated RBC % 0.0 Platelet Estimate Adequate Hypochromasia 1+ Anisocytosis 1+ Ovalocytes 1+ [place] Cells 1+ Acanthocytes (Spur) 1+ Schistocytes None seen APTT 92.7 H Sodium 136 L Potassium 4.1 Chloride 105 Carbon Dioxide 23 Anion Gap 8 BUN 28 H D Creatinine 2.36 H Estim Creat Clear Calc 38 Estimated GFR 28 L Glucose 72 POC Capillary Glucose 86 Calcium 7.9 L Phosphorus 3.7 Magnesium 2.0 Total Bilirubin 0.8 AST 41 ALT 100 H Alkaline Phosphatase 161 H Total Protein 5.0 L Albumin 2.5 L 01/01/25 11:46 WBC RBC Hgb Hct MCV MCH MCHC RDW Plt Count MPV Immature Gran % (Auto) Neut % (Auto) Lymph % (Auto) [place] % (Auto) Eos % (Auto) Baso % (Auto) Lymph # (Auto) [place] # (Auto) Eos # (Auto) Baso # (Auto) Abs Immat Gran (auto) Absolute Neuts (auto) Absolute Nucleated RBC Band Neutrophils % Nucleated RBC % Platelet Estimate Hypochromasia Anisocytosis Ovalocytes [place] Cells Acanthocytes (Spur) Schistocytes APTT Sodium Potassium Chloride Carbon Dioxide Anion Gap BUN Creatinine Estim Creat Clear Calc Estimated GFR Glucose POC Capillary Glucose 149 H Calcium Phosphorus Magnesium Total Bilirubin AST ALT Alkaline Phosphatase Total Protein Albumin
[2025-01-01] MEDS: polyethylene glycoL 3350 17 GM POWD.PACK PO (13:26)
[2025-01-01] MEDS: EUCERIN CREAM 120 GM JAR 1 APPLIC TOPICAL (13:26)
--- NOTE | 2025-01-01 14:37 | PCOTNOTE ---
Occupational therapy attempted initial evaluation this date, however, nursing staff present in room noting increased nausea and providing medications to ease it. Hold therapy at this time.
[2025-01-01 16:17] LABS: Glucose Point of Care 163 mg/dl (65-105)
[2025-01-01 20:18] LABS: Glucose Point of Care 188 mg/dl (65-105)
[2025-01-01 22:45] LABS: Partial Thromboplastin Time 68.5 Seconds (22.3-36.8)
[2025-01-01] MEDS: QUEtiapine FUMARATE 25 MG TABLET PO (23:05)
[2025-01-01] MEDS: HEPARIN SODIUM 5,000 UNITS/ML VIAL 3500 UNITS IV PUSH (23:11)
[2025-01-02] VITALS (9 sets, daily range): BP systolic 105–115; BP diastolic 80–91; PULSE 109–122; RESP 18–20; TEMP 36.2–36.7; O2SAT 97–100
[2025-01-02 05:15] LABS: Basophils Absolute Auto 0.1 K/mm3 (0.0-0.1); Basophils Percent Auto 0.8 % (0.2-1.2); Eosinophils Absolute Auto 0.3 K/mm3 (0-0.3); Eosinophils Percent Auto 3.7 % (0-4.4); Hematocrit 38.8 % (42.0-52.0); Hemoglobin 10.8 g/dL (14.0-18.0); Immature Granulocyte Absolute 0.04 K/mm3 (0.00-0.031); Immature Granulocyte Percent A 0.4 % (0-0.5); Lymphocytes Absolute Auto 2.73 K/mm3 (0.9-3.2); Lymphocytes Percent Auto 29.8 % (18.3-44.2); Mean Corpuscular HGB Conc 27.8 g/dl (32-36); Mean Corpuscular Hemoglobin 24.5 pg (26-34); Monocytes Percent Auto 10.8 % (2.6-8.5); Neutrophils Percent Auto 54.5 % (45.5-73.1); Nucleated Red Blood Cells Perc 0.2 % (0.0-0.2); Platelet Count Result 257 k/mm3 (150-375); Red Blood Count 4.41 M/mm3 (4.6-6.20); Red Cell Distribution Width 19.1 % (11.5-14.5); White Blood Count 9.2 K/mm3 (4.5-10.0)
[2025-01-02 05:26] LABS: Alanine Aminotransferase 94 U/L (6-50); Albumin Level 2.9 g/dL (3.5-5.1); Alkaline Phosphatase 169 U/L (38-126); Anion Gap 8 mmol/L (4-12); Aspartate Amino Transferase 36 U/L (17-59); Bilirubin,Total 0.9 mg/dL (0.2-1.3); Blood Urea Nitrogen 37 mg/dL (9-20); Calcium 7.8 mg/dL (8.4-10.2); Carbon Dioxide 23 mmol/L (22-30); Chloride 103 mmol/L (98-107); Estimated CRCL calculation 32 ml/min; Estimated Glomerular Filt Rate 22; Glucose 131 mg/dL (65-110); Potassium 4.6 mmol/L (3.4-5.0); Sodium 134 mmol/L (137-145)
[2025-01-02 05:29] LABS: Partial Thromboplastin Time 125.2 Seconds (22.3-36.8)
[2025-01-02 05:37] LABS: Anisocytosis 2+; Platelet Estimate Adequate (Adequate)
[2025-01-02 05:38] LABS: Poikilocytosis 1+
[2025-01-02 05:39] LABS: Hypochromasia 1+; Schistocytes None Seen
[2025-01-02] MEDS: LEVOTHYROXINE SODIUM 125 MCG TABLET PO (06:02)
[2025-01-02] MEDS: METOPROLOL TARTRATE 25 MG TABLET PO (06:02)
[2025-01-02 07:33] LABS: Glucose Point of Care 123 mg/dl (65-105)
[2025-01-02] MEDS: SERTRALINE HCL 50 MG TABLET 100 MG PO (08:58)
[2025-01-02] MEDS: ASPIRIN 81 MG CHEWABLE TABLET PO (08:58)
[2025-01-02] MEDS: CHOLECALCIFEROL 1,000 UNITS TABLET 1000 UNITS PO (08:58)
[2025-01-02] MEDS: DOCUSATE SODIUM 100 MG CAPSULE PO ×2 (08:58→21:07)
[2025-01-02] MEDS: EZETIMIBE 10 MG TABLET PO (08:58)
[2025-01-02] MEDS: EUCERIN CREAM 120 GM JAR 1 APPLIC TOPICAL (08:58)
[2025-01-02] MEDS: NICOTINE (*PBKC) 21 MG PATCH 1 PATCH TRANSDERM (08:58)
[2025-01-02] MEDS: ONDANSETRON INJ 4 MG/2 ML VIAL IV PUSH (08:59)
[2025-01-02 11:23] LABS: Glucose Point of Care 193 mg/dl (65-105)
--- NOTE | 2025-01-02 13:15 | P.PNNP_ITS ---
Progress Note: A&P Assessment and Plan (1) Acute kidney injury: Code(s): N17.9 - Acute kidney failure, unspecified Status: Acute Assessment and Plan: * as noted on admission * evaluation to date noted: * renal u/s normal * urine eosinophils negative * nephrotic range proteinuria * prerenal urine electrolytes * CPK mildly elevated (but not enought to affect kidney function) * further serologies pending * outpatient evaluation noted - normal complements but hematuria with positive * initiated [employer]/HD on 12/21 * s/p RENAL BIOPSY (on 12/22) with findings noted: * diabetic nephropathy * significant interstitial fibrosis/tubular atrophy noted as well * fluctuating urine output noted * however, BUN + creatinine continue to rise without dialytic support * last HD on 12/31 * checking 24hr urine collection today to better assess GFR/creatinine clearance * consult surgery for possible tunneled HD catheter next week (2) Stage 3b chronic kidney disease: Code(s): N18.32 - Chronic kidney disease, stage 3b Status: Chronic Assessment and Plan: * baseline creatinine runs around 1.7 - 2.3mg/dl * secondary to diabetes (as noted by renal biopsy) and hypertension (3) Pneumonia: Code(s): J18.9 - Pneumonia, unspecified organism Status: Acute Assessment and Plan: * admission CXR with bibasilar infiltrates * completed course of antibiotics * respiratory status stable (4) Heart failure with mildly reduced ejection fraction: Code(s): I50.22 - Chronic systolic (congestive) heart failure Status: Acute Assessment and Plan: * known history * repeat Echo (12/18) noted: * severely reduced systolic function with EF 25-30% * diastolic dysfunction * mild valvular disease * moderate pulmonary hypertension * CXR with cardiomegaly, bibasilar infiltrates and small pleural effusions * Entresto and diuretics on hold given #1 * removing fluid with dialysis * not opposed to re-start entresto if necessary * Cardiology following (5) Encephalopathy: Code(s): G93.40 - Encephalopathy, unspecified Status: Acute Assessment and Plan: * doing better * doubt uremia playing a role given improvement in BUN * testing to date noted: * ammonia level is okay * B12 and folate are okay * WBC okay and no fevers so unlikely to be related to infection * aodium good * magnesium and calcium stable * CT of brain normal * ABGs reasonable * Neurology recommendations noted (6) Atrial flutter with rapid ventricular response: Code(s): I48.92 - Unspecified atrial flutter Status: Acute Assessment and Plan: * rate control strategy * on heparin gtt for anticoagulation (7) Transaminitis: Code(s): R74.01 - Elevation of levels of liver transaminase levels Status: Deleted Assessment and Plan: * normal earlier in November 2024 * hepatitis panel negative * abd US showing cholelithiasis and mildly dilated CBD; liver is normal in appearance * holding statin * liver biopsy (on 12/21) noted: * ongestive hepatopathy and congestive hepatic fibrosis * improving (8) Anemia: Code(s): D64.9 - Anemia, unspecified Status: Acute Assessment and Plan: * related to ELEANOR, CKD, and acute illness * Epogen with HD as needed * follow trend of H/H (9) Peripheral vascular disease: Code(s): I73.9 - Peripheral vascular disease, unspecified Status: Acute Assessment and Plan: * known history * on zetia but statin on hold given elevated LFTs * complicated by ongoing smoking * arterial dopplers noted (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 L Subjective Date/time seen: 01/02/25 13:15 Interval history: Follow-up for acute kidney injury/acute renal failure on chronic kidney disease. Mentation appears somewhat better/improved at this time; no issues with further confusion or agitation overnight or earlier this morning; no apparent distress noted. Exam 2 Narrative: General: elderly male in NAD but confused Heart: tachycardic; normal S1 and S2; no rub Lungs: coarse breath sounds Abdomen: obese but soft, nontender, nondistended, positive bowel sounds Extremities: no cyanosis or clubbing; 1+ edema in RLE; s/p left AKA Skin: no rash Objective Data Vital Signs Vital Signs: Vital Signs Temp Pulse Resp BP Pulse Ox O2 Del Method 01/02/25 13:00 97.1 F L 109 H 20 115/80 100 01/02/25 14:00 Room Air 01/02/25 06:02 119 H 01/02/25 05:37 98.0 F 117 H 18 105/89 97 01/02/25 04:00 120 H 01/02/25 00:00 122 H 01/01/25 23:04 122 H 01/01/25 21:08 97.9 F 122 H 20 103/72 97 01/01/25 20:50 122 H Intake/Output Intake/Output: Intake & Output 12/30/24 12/31/24 01/01/25 01/02/25 23:59 23:59 23:59 23:59 Intake Total 245.7 1094.7 1369.1 1284.5 Output Total 300 1301 525 150 Balance -54.3 -206.3 844.1 1134.5 Meds/Results Medications: Active Medications Generic Name Dose Route Start Last Admin Trade Name Freq PRN Reason Stop Dose Admin Acetaminophen 650 mg 12/31/24 12:08 Acetaminophen 650 Mg Suppository RECTAL Q6H PRN Mild Pain (1-3) or Fever Aspirin 81 mg 12/20/24 08:00 01/02/25 08:58 Aspirin 81 Mg Chewable Tablet PO 81 mg DAILY@0800 REGINA Administration Calcium Carbonate 200 mg 12/18/24 22:39 Calcium Carbonate (Tums) 500 Mg (200 Mg Elemental) PO Q6H PRN Indigestion Dextrose 12.5 gm 12/17/24 22:39 Dextrose 50% 25 Gm/50 Ml Syringe IV PUSH PRN PRN Hypoglycemia Protocol Docusate Sodium 100 mg 12/23/24 21:00 01/02/25 08:58 Docusate Sodium 100 Mg Capsule PO 100 mg Q12HR REGINA Administration Ezetimibe 10 mg 12/18/24 09:00 01/02/25 08:58 Ezetimibe 10 Mg Tablet PO 10 mg DAILY REGINA Administration Glucagon 1 mg 12/17/24 22:39 Glucagon For Inj 1 Mg Vial IM PRN PRN Hypoglycemia Protocol Glucose 15 gm 12/17/24 22:39 Glucose Oral Gel 15 Gm Of Glucse In 37.5 Gm Tube PO PRN PRN Hypoglycemia Protocol Heparin Sodium (Porcine) 7,500 units 12/27/24 14:06 12/31/24 09:57 Heparin Sodium 5,000 Units/Ml Vial IV PUSH 7,500 units PRN PRN Administration aPTT less than 55 seconds Heparin Sodium (Porcine) 3,500 units 12/27/24 14:06 01/01/25 23:11 Heparin Sodium 5,000 Units/Ml Vial IV PUSH 3,500 units PRN PRN Administration aPTT 55 - 70 seconds Dextrose 1,000 mls @ 100 mls/hr 12/17/24 22:39 Dextrose 5% 1,000 Ml IVPB PRN PRN Hypoglycemia Protocol Albumin Human 50 mls @ 999 mls/hr 12/22/24 05:43 Albutein IVPB 01/21/25 05:42 Q10M PRN HYPOTENSION Heparin Sodium/Dextrose 25,000 units in 250 mls @ 19 mls/hr 12/27/24 14:10 01/02/25 15:05 Heparin Sodium/D5w 100 Units/Ml IV CONT Infused .[id number] REGINA Titration Protocol 1,900 UNITS/HR Insulin Aspart 2 - 5 units 12/29/24 12:00 01/02/25 12:46 Insulin Aspart (*Bkc) 100 Units/Ml SUB-Q Not Given TIDWM REGINA Protocol Insulin Aspart 2 - 5 units 12/29/24 21:00 01/01/25 23:04 Insulin Aspart (*Bkc) 100 Units/Ml SUB-Q Not Given HS REGINA Protocol Levothyroxine Sodium 250 mcg 12/21/24 06:30 01/01/25 06:18 Levothyroxine Sodium 125 Mcg Tablet PO 250 mcg [id number]@[id number] REGINA Administration Levothyroxine Sodium 125 mcg 12/26/24 06:30 01/02/25 06:02 Levothyroxine Sodium 125 Mcg Tablet PO 125 mcg Mitchell@0630 REGINA Administration Metoprolol Tartrate 25 mg 12/28/24 14:00 01/02/25 06:02 Metoprolol Tartrate 25 Mg Tablet PO 25 mg Q8HR REGINA Administration Multi-Ingred Cream/Lotion/Oil/Oint 1 applic 01/01/25 12:35 01/02/25 08:58 Eucerin Cream 120 Gm Jar TOPICAL 1 applic DAILY REGINA Administration Nicotine 1 patch 12/17/24 22:45 01/02/25 08:58 Nicotine (*Pbkc) 21 Mg Patch TRANSDERM 1 patch DAILY REGINA Administration Ondansetron HCl 4 mg 12/17/24 16:18 01/02/25 08:59 Ondansetron Inj 4 Mg/2 Ml Vial IV PUSH 4 mg Q4H PRN Administration Nausea Quetiapine Fumarate 25 mg 12/31/24 21:00 01/01/25 23:05 Quetiapine Fumarate 25 Mg Tablet PO 25 mg HS REGINA Administration Sertraline HCl 100 mg 12/18/24 09:00 01/02/25 08:58 Sertraline Hcl 50 Mg Tablet PO 100 mg DAILY REGINA Administration Vitamin D 1,000 units 12/31/24 09:00 01/02/25 08:58 Cholecalciferol 1,000 Units Tablet PO 1,000 units DAILY REGINA Administration Radiology Results: ITS Impressions Lumbar Spine X-Ray 12/17/24 15:44 IMPRESSION: Anterior loss of volume of L1 which is most likely chronic. MRI evaluation advised. Otherwise, No acute osseous abnormality lumbar spine. Degenerative disc disease at the level of L4-L5. Venous Doppler Study 12/18/24 13:13 IMPRESSION: 1. No deep venous thrombosis. Abdomen Ultrasound 12/18/24 13:18 IMPRESSION: 1. Cholelithiasis. No evidence of acute cholecystitis. 2. Mildly dilated common duct. Renal Ultrasound 12/18/24 13:21 IMPRESSION: 1. Normal kidney sizes. No hydronephrosis. Lumbar Spine MRI 12/18/24 15:23 IMPRESSION: Limited examination secondary to motion artifact. No abnormal signal intensity or contrast enhancement is identified within the vertebral body of L1 to suggest acute traumatic injury. Within the visualized intervertebral disc spaces, moderate degenerative disease is noted, as detailed above. Duplex Scan Lower Extremity Artery 12/18/24 21:35 IMPRESSION: Abnormal peak systolic velocity and waveform morphology suggesting a popliteal or tibioperoneal trunk stenosis. Three-vessel blood flow into the right calf with single vessel blood flow into the right foot (on the submitted images) MRCP 12/21/24 08:48 IMPRESSION: 1. Study terminated at patient request prior to obtaining the normal complement of sequences including the MRCP images and which along with some motion artifact on the obtained sequences moderately limits evaluation. 2. Anasarca with small left and moderate-sized right pleural effusions, small amount of ascites and extensive body wall, as enteric and retroperitoneal edema. 3. Normal-appearing gallbladder with no evident cholelithiasis and with no intra or extrahepatic biliary ductal dilation. Sensitivity for tiny gallstones which were suggested on prior ultrasound is limited by motion artifact. 4. Cardiomegaly. Liver Biopsy Ultrasound 12/22/24 10:51 IMPRESSION: 1. Successful Ultrasound-guided random liver biopsy. Renal Biopsy Ultrasound 12/23/24 10:32 IMPRESSION: 1. Ultrasound-guided random left kidney core needle biopsy. Head CT 12/25/24 17:06 IMPRESSION: No acute intracranial process. Chest X-Ray 12/31/24 14:34 Impression: Small pleural effusions with bibasilar pulmonary edema/atelectasis. Support line, as above. Labs Labs: Laboratory Tests 01/02/25 05:10 01/02/25 05:10 Calcium 7.8 L Phosphorus 4.0 Magnesium 2.0 Total Bilirubin 0.9 AST 36 ALT 94 H Alkaline Phosphatase 169 H Total Protein 6.0 L Albumin 2.9 L
[2025-01-02 13:55] LABS: Partial Thromboplastin Time 73.6 Seconds (22.3-36.8)
--- NOTE | 2025-01-02 15:27 | PM.IMPN ---
Progress Note: A&P Assessment and Plan (1) Altered mental status: Code(s): R41.82 - Altered mental status, unspecified Status: Acute Assessment and Plan: Patient has developed confused since 12/25/2024. He was receiving ativan and haldol prn for agitation Ammonia negative ABG unremarkable. B12 normal. TSH as mentioned below. Vit D <12.8 CT head unremarkable. CXR showing small left and small-mod right pleural effusion with associated atelectasis and/or PNA UA noted so started empirically on ceftriaxone BCx (12/25) NGTD. UCx 12/25 negative so Rocephin stopped. EEG 12/28 - abnormal record due to the absence of a normal background rhythm but without evidence of paroxysmal activity Stopped all of his sedating mediations and Seroquel added Mental status better. Continue to hold all sedating medications. Continue Seroquel at night. Increase activity and try to keep awake most of the day (2) Abnormal transaminases: Code(s): R74.8 - Abnormal levels of other serum enzymes Status: Acute Assessment and Plan: On admission, LFTs were mildly elevated. Hepatitis panel negative. Abd US showing cholelithiasis and mildly dilated CBD. Liver was normal in appearance. Lipitor held. Repeat levels on 12/20 much worse with AST 1539, ALT 1066, AP 479, normal bili. Lactic acid 1.1. Acet level <10. [place] due to congestion from heart failure Consider autoimmune with + IV fluids stopped. GI consulted and appreciate their input. Patient was able to complete some of the MRCP. This showed anasarca, small left and moderate size right pleural effusion, small amount of ascites, extensive body edema and cardiomegaly. He had a normal appearing gallbladder with no evidence of cholelithiasis no intra or extrahepatic biliary ductal dilatation. Sensitivity was limited. Status post liver biopsy 12/22/2024: congestive hepatopathy and congestive hepatic fibrosis score 1. LFTs improving. [place] related to hepatic congestion. Follow. (3) Acute kidney injury: Code(s): N17.9 - Acute kidney failure, unspecified Status: Acute Assessment and Plan: Patient presents with weakness and may have had underlying PNA. Cr on admission 4.3. Baseline Cr 2.1-2.9 range. He was started on IV fluids. Urine eos negative. Eve 42. Total CK 371. Urine prot/Cr 4.7gm consistent with nephrotic syndrome. Complement normal. Hx of + 1:640. Renal US normal. Nephrology consulted and appreciate their input. Cryoglobulin negative. Creatinine was trending up; HD catheter placement 12/22/2024 and was started on hemodialysis. Renal biopsy 12/23/2024 with advanced diabetic glomerulosclerosis class 4. 50-60% tubular atrophy and interstitial fibrosis. Last dialysis 12/31/2024 UOP poor. Cr rising. Appreciate nephrology input. Discussed with nephrology. Tunneled cath being planned. (4) Pneumonia: Code(s): J18.9 - Pneumonia, unspecified organism Status: Acute Assessment and Plan: Patient presents with weakness after having cold and cough symptoms for 3 weeks. No benefit after 2 Z-packs. CXR showing bibasilar infiltrates. No fevers or hypoxia. WBC 12K. He was started on Rocephin and Doxycycline. WBC normal now. BCx NGTD. MRSA screen negative. Urine Ag negative. Sputum Cx growing MSSA and yeast. He completed a 7 day course. Rocephin restarted for possible UTI but UCx negative so stopped. Follow off abx (last dose of Rocephin was 12/29 at 1215) (5) Heart failure with mildly reduced ejection fraction: Code(s): I50.22 - Chronic systolic (congestive) heart failure Status: Acute Assessment and Plan: Echo showing severely reduced systolic fxn with EF 25-30% with diastolic dysfunction, mild valve disease and moderate pulmonary HTN. BNP >30K. CXR showing CMG, bibasilar infiltrates and small pleural effusions. Entresto and finerenone on hold. Diuretics not listed on home med list. Holding Entresto. Monitor UOP, renal fxn, daily weights and fluid balance. (6) Atrial flutter with rapid ventricular response: Code(s): I48.92 - Unspecified atrial flutter Status: Acute Assessment and Plan: New onset atrial fibrillation. On metoprolol. On heparin drip for now. Change to Eliquis when able HR poorly controlled. Advance metoprolol. 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 The patient's blood glucose was reviewed Patient was on an insulin pump at home. Concern patient was unable to handle his pump here so this was held. Glucose remains well controlled off the insulin pump despite his improved eating habit Continue AccuCheks covering with sliding scale. Hypoglycemia protocol available as needed. Continue to monitor (8) Chronic kidney disease, stage 4 (severe): Code(s): N18.4 - Chronic kidney disease, stage 4 (severe) Status: Acute Assessment and Plan: As above (9) Status post above-knee amputation of left lower extremity: Code(s): Z89.612 - Acquired absence of left leg above knee Status: Acute Assessment and Plan: Patient with known PAD. Venous doppler RLE negative for DVT. Arterial doppler RLE suggestive of a popliteal or tibioperoneal trunk stenosis. There is three-vessel blood flow into the right calf with single vessel blood flow into the right foot. Continue Zetia and ASA. Resume Lipitor when able. Plan # Hypothyroidism: Review of Endocrine note from 11/12 showing he was to skip the Friday Synthroid dose. TSH is 46.4. Free T4 is low-normal at 0.96. Total T3 is 0.5. Patient is currently on 250 mcg daily except no meds on Friday. Suspect the skipped dose has resulted in the change in his thyroid panel. Will adjust to 250mcg daily except added 125mcg on Sundays. # Tobacco dependence: Patient was educated about the benefits of smoking cessation # urinary retention status post cystoscopy with passive dilation of mild bulbar narrowing. Complex Hernandez catheter placement with 16 [place] coude on 12/20/2024. Maintain Hernandez catheter until improvement in volume status and mobility. # Low back pain - Lumbar MRI performed but no acute finding seen on limited imaging due to motion artifact. # meth abuse - Possible meth abuse to explain some of his mental status confusion prior to admission. Will discuss when patient more awake and alert. # DVT prophylaxis - Heparin # Code status - full Subjective Date/time seen: 01/02/25 15:27 Interval history: 64yo male smoker with hx of TIA, CHF, HTN CKD, DM with PN, status post left [id number] amputation related to infection Charcot foot, and hypothyroidism who presented to the emergency department via private vehicle with complaints of weakness and overall not feeling well. No issues overnight. He did not require any treatment for agitation. +BMs. No abd pain. No CP or SOB. Eating okay. Exam Narrative: AF 98.0 105/89 119 18 97% RA Gen - NARD Neck - right IJ HD catheter secured. Chest - bronchial BS in left base CV - tachycardic, irregularly irregular. Refusing tele Abd - Soft, obese, NT - Hernandez secured draining martinez colored urine Ext - Left AKA. no RLE pedal edema Neuro - alert and appropriate Skin - Warm and dry Objective Data Vital Signs Vital Signs: Vital Signs - 24 hr 01/01/25 20:50 01/01/25 21:08 01/01/25 23:04 Temperature 97.9 F Pulse Rate 122 H 122 H 122 H Respiratory Rate 20 Blood Pressure 103/72 Pulse Oximetry 97 01/02/25 00:00 01/02/25 04:00 01/02/25 05:37 Temperature 98.0 F Pulse Rate 122 H 120 H 117 H Respiratory Rate 18 Blood Pressure 105/89 Pulse Oximetry 97 01/02/25 06:02 Temperature Pulse Rate 119 H Respiratory Rate Blood Pressure Pulse Oximetry Intake/Output Intake/Output: Intake & Output 12/30/24 12/31/24 01/01/25 01/02/25 23:59 23:59 23:59 23:59 Intake Total 245.7 1094.7 1369.1 1284.5 Output Total 300 1301 525 150 Balance -54.3 -206.3 844.1 1134.5 Meds/Results Medications: Active Medications Generic Name Dose Route Start Last Admin Trade Name Freq PRN Reason Stop Dose Admin Acetaminophen 650 mg 12/31/24 12:08 Acetaminophen 650 Mg Suppository RECTAL Q6H PRN Mild Pain (1-3) or Fever Aspirin 81 mg 12/20/24 08:00 01/02/25 08:58 Aspirin 81 Mg Chewable Tablet PO 81 mg DAILY@0800 REGINA Administration Calcium Carbonate 200 mg 12/18/24 22:39 Calcium Carbonate (Tums) 500 Mg (200 Mg Elemental) PO Q6H PRN Indigestion Dextrose 12.5 gm 12/17/24 22:39 Dextrose 50% 25 Gm/50 Ml Syringe IV PUSH PRN PRN Hypoglycemia Protocol Docusate Sodium 100 mg 12/23/24 21:00 01/02/25 08:58 Docusate Sodium 100 Mg Capsule PO 100 mg Q12HR REGINA Administration Ezetimibe 10 mg 12/18/24 09:00 01/02/25 08:58 Ezetimibe 10 Mg Tablet PO 10 mg DAILY REGINA Administration Glucagon 1 mg 12/17/24 22:39 Glucagon For Inj 1 Mg Vial IM PRN PRN Hypoglycemia Protocol Glucose 15 gm 12/17/24 22:39 Glucose Oral Gel 15 Gm Of Glucse In 37.5 Gm Tube PO PRN PRN Hypoglycemia Protocol Heparin Sodium (Porcine) 7,500 units 12/27/24 14:06 12/31/24 09:57 Heparin Sodium 5,000 Units/Ml Vial IV PUSH 7,500 units PRN PRN Administration aPTT less than 55 seconds Heparin Sodium (Porcine) 3,500 units 12/27/24 14:06 01/01/25 23:11 Heparin Sodium 5,000 Units/Ml Vial IV PUSH 3,500 units PRN PRN Administration aPTT 55 - 70 seconds Dextrose 1,000 mls @ 100 mls/hr 12/17/24 22:39 Dextrose 5% 1,000 Ml IVPB PRN PRN Hypoglycemia Protocol Albumin Human 50 mls @ 999 mls/hr 12/22/24 05:43 Albutein IVPB 01/21/25 05:42 Q10M PRN HYPOTENSION Heparin Sodium/Dextrose 25,000 units in 250 mls @ 19 mls/hr 12/27/24 14:10 01/02/25 15:05 Heparin Sodium/D5w 100 Units/Ml IV CONT Infused .[id number] REGINA Titration Protocol 1,900 UNITS/HR Insulin Aspart 2 - 5 units 12/29/24 12:00 01/02/25 12:46 Insulin Aspart (*Bkc) 100 Units/Ml SUB-Q Not Given TIDWM REGINA Protocol Insulin Aspart 2 - 5 units 12/29/24 21:00 01/01/25 23:04 Insulin Aspart (*Bkc) 100 Units/Ml SUB-Q Not Given HS REGINA Protocol Levothyroxine Sodium 250 mcg 12/21/24 06:30 01/01/25 06:18 Levothyroxine Sodium 125 Mcg Tablet PO 250 mcg [id number]@0630 REGINA Administration Levothyroxine Sodium 125 mcg 12/26/24 06:30 01/02/25 06:02 Levothyroxine Sodium 125 Mcg Tablet PO 125 mcg [place]@0630 REGINA Administration Metoprolol Tartrate 25 mg 12/28/24 14:00 01/02/25 06:02 Metoprolol Tartrate 25 Mg Tablet PO 25 mg Q8HR REGINA Administration Multi-Ingred Cream/Lotion/Oil/Oint 1 applic 01/01/25 12:35 01/02/25 08:58 Eucerin Cream 120 Gm Jar TOPICAL 1 applic DAILY REGINA Administration Nicotine 1 patch 12/17/24 22:45 01/02/25 08:58 Nicotine (*Soterokc) 21 Mg Patch TRANSDERM 1 patch DAILY REGINA Administration Ondansetron HCl 4 mg 12/17/24 16:18 01/02/25 08:59 Ondansetron Inj 4 Mg/2 Ml Vial IV PUSH 4 mg Q4H PRN Administration Nausea Quetiapine Fumarate 25 mg 12/31/24 21:00 01/01/25 23:05 Quetiapine Fumarate 25 Mg Tablet PO 25 mg HS REGINA Administration Sertraline HCl 100 mg 12/18/24 09:00 01/02/25 08:58 Sertraline Hcl 50 Mg Tablet PO 100 mg DAILY REGINA Administration Vitamin D 1,000 units 12/31/24 09:00 01/02/25 08:58 Cholecalciferol 1,000 Units Tablet PO 1,000 units DAILY REGINA Administration Radiology Results: ITS Impressions Lumbar Spine X-Ray 12/17/24 15:44 IMPRESSION: Anterior loss of volume of L1 which is most likely chronic. MRI evaluation advised. Otherwise, No acute osseous abnormality lumbar spine. Degenerative disc disease at the level of L4-L5. Venous Doppler Study 12/18/24 13:13 IMPRESSION: 1. No deep venous thrombosis. Abdomen Ultrasound 12/18/24 13:18 IMPRESSION: 1. Cholelithiasis. No evidence of acute cholecystitis. 2. Mildly dilated common duct. Renal Ultrasound 12/18/24 13:21 IMPRESSION: 1. Normal kidney sizes. No hydronephrosis. Lumbar Spine MRI 12/18/24 15:23 IMPRESSION: Limited examination secondary to motion artifact. No abnormal signal intensity or contrast enhancement is identified within the vertebral body of L1 to suggest acute traumatic injury. Within the visualized intervertebral disc spaces, moderate degenerative disease is noted, as detailed above. Duplex Scan Lower Extremity Artery 12/18/24 21:35 IMPRESSION: Abnormal peak systolic velocity and waveform morphology suggesting a popliteal or tibioperoneal trunk stenosis. Three-vessel blood flow into the right calf with single vessel blood flow into the right foot (on the submitted images) MRCP 12/21/24 08:48 IMPRESSION: 1. Study terminated at patient request prior to obtaining the normal complement of sequences including the MRCP images and which along with some motion artifact on the obtained sequences moderately limits evaluation. 2. Anasarca with small left and moderate-sized right pleural effusions, small amount of ascites and extensive body wall, as enteric and retroperitoneal edema. 3. Normal-appearing gallbladder with no evident cholelithiasis and with no intra or extrahepatic biliary ductal dilation. Sensitivity for tiny gallstones which were suggested on prior ultrasound is limited by motion artifact. 4. Cardiomegaly. Liver Biopsy Ultrasound 12/22/24 10:51 IMPRESSION: 1. Successful Ultrasound-guided random liver biopsy. Renal Biopsy Ultrasound 12/23/24 10:32 IMPRESSION: 1. Ultrasound-guided random left kidney core needle biopsy. Head CT 12/25/24 17:06 IMPRESSION: No acute intracranial process. Chest X-Ray 12/31/24 14:34 Impression: Small pleural effusions with bibasilar pulmonary edema/atelectasis. Support line, as above. Labs Labs: Laboratory Results - last 24 hr 01/01/25 01/01/25 01/01/25 16:01 20:14 22:19 WBC RBC Hgb Hct MCV MCH MCHC RDW Plt Count MPV Immature Gran % (Auto) Neut % (Auto) Lymph % (Auto) [place] % (Auto) Eos % (Auto) Baso % (Auto) Lymph # (Auto) [place] # (Auto) Eos # (Auto) Baso # (Auto) Abs Immat Gran (auto) Absolute Neuts (auto) Absolute Nucleated RBC Band Neutrophils % Nucleated RBC % Platelet Estimate Hypochromasia Poikilocytosis Anisocytosis Schistocytes APTT 68.5 H Sodium Potassium Chloride Carbon Dioxide Anion Gap BUN Creatinine Estim Creat Clear Calc Estimated GFR Glucose POC Capillary Glucose 163 H 188 H Calcium Phosphorus Magnesium Total Bilirubin AST ALT Alkaline Phosphatase Total Protein Albumin 01/02/25 01/02/25 01/02/25 05:10 07:20 11:02 WBC 9.2 RBC 4.41 L Hgb 10.8 L Hct 38.8 L MCV 88.0 MCH 24.5 L MCHC 27.8 L RDW 19.1 H Plt Count 257 MPV 10.0 Immature Gran % (Auto) 0.4 Neut % (Auto) 54.5 Lymph % (Auto) 29.8 [place] % (Auto) 10.8 H Eos % (Auto) 3.7 Baso % (Auto) 0.8 Lymph # (Auto) 2.73 [place] # (Auto) 1.0 H Eos # (Auto) 0.3 Baso # (Auto) 0.1 Abs Immat Gran (auto) 0.04 H Absolute Neuts (auto) 5.0 Absolute Nucleated RBC 0.020 H Band Neutrophils % Not Reportable Nucleated RBC % 0.2 Platelet Estimate Adequate Hypochromasia 1+ Poikilocytosis 1+ Anisocytosis 2+ Schistocytes None seen APTT 125.2 H Sodium 134 L Potassium 4.6 Chloride 103 Carbon Dioxide 23 Anion Gap 8 BUN 37 H Creatinine 2.87 H Estim Creat Clear Calc 32 Estimated GFR 22 L Glucose 131 H POC Capillary Glucose 123 H 193 H Calcium 7.8 L Phosphorus 4.0 Magnesium 2.0 Total Bilirubin 0.9 AST 36 ALT 94 H Alkaline Phosphatase 169 H Total Protein 6.0 L Albumin 2.9 L 01/02/25 13:26 WBC RBC Hgb Hct MCV MCH MCHC RDW Plt Count MPV Immature Gran % (Auto) Neut % (Auto) Lymph % (Auto) [place] % (Auto) Eos % (Auto) Baso % (Auto) Lymph # (Auto) [place] # (Auto) Eos # (Auto) Baso # (Auto) Abs Immat Gran (auto) Absolute Neuts (auto) Absolute Nucleated RBC Band Neutrophils % Nucleated RBC % Platelet Estimate Hypochromasia Poikilocytosis Anisocytosis Schistocytes APTT 73.6 H Sodium Potassium Chloride Carbon Dioxide Anion Gap BUN Creatinine Estim Creat Clear Calc Estimated GFR Glucose POC Capillary Glucose Calcium Phosphorus Magnesium Total Bilirubin AST ALT Alkaline Phosphatase Total Protein Albumin
[2025-01-02 16:37] LABS: Glucose Point of Care 177 mg/dl (65-105)
[2025-01-02 20:12] LABS: Glucose Point of Care 155 mg/dl (65-105)
[2025-01-02] MEDS: QUEtiapine FUMARATE 25 MG TABLET PO (21:07)
[2025-01-02] MEDS: METOPROLOL TARTRATE 50 MG TAB PO (21:07)
[2025-01-02 21:31] LABS: Partial Thromboplastin Time 73.2 Seconds (22.3-36.8)
[2025-01-03] VITALS (24 sets, daily range): BP systolic 93–138; BP diastolic 68–88; PULSE 98–122; RESP 18–20; TEMP 35.6–37; O2SAT 93–100
[2025-01-03] MEDS: HEPARIN SOD/D5W 100 UNITS/ML 25,000 UNITS/250 ML BAG 19 UNITS IV CONT ×2 (00:25→19:55)
[2025-01-03] MEDS: diphenhydrAMINE HCl CAP 25 MG CAPSULE PO (00:27)
[2025-01-03] MEDS: OLANZapine 10 MG, WATER, STERILE FOR INJECTION 2.1 ML IM (04:03)
[2025-01-03] MEDS: LEVOTHYROXINE SODIUM 125 MCG TABLET 250 MCG PO (05:44)
[2025-01-03 06:28] LABS: Basophils Absolute Auto 0.1 K/mm3 (0.0-0.1); Eosinophils Absolute Auto 0.2 K/mm3 (0-0.3); Eosinophils Percent Auto 2.4 % (0-4.4); Hematocrit 38.3 % (42.0-52.0); Hemoglobin 10.8 g/dL (14.0-18.0); Immature Granulocyte Absolute 0.05 K/mm3 (0.00-0.031); Immature Granulocyte Percent A 0.6 % (0-0.5); Lymphocytes Absolute Auto 2.61 K/mm3 (0.9-3.2); Lymphocytes Percent Auto 30.1 % (18.3-44.2); Mean Corpuscular HGB Conc 28.2 g/dl (32-36); Mean Corpuscular Hemoglobin 24.3 pg (26-34); Mean Corpuscular Volume 86.1 fl (80-100); Mean Platelet Volume 10.4 fl (7.4-10.4); Monocytes Absolute Auto 0.9 K/mm3 (0.1-0.6); Monocytes Percent Auto 10.6 % (2.6-8.5); Neutrophils Absolute Auto 4.8 K/mm3 (1.3-6.7); Neutrophils Percent Auto 55.3 % (45.5-73.1); Nucleated Red Blood Cells Perc 0.7 % (0.0-0.2); Platelet Count Result 270 k/mm3 (150-375); Red Blood Count 4.45 M/mm3 (4.6-6.20); Red Cell Distribution Width 18.9 % (11.5-14.5); White Blood Count 8.7 K/mm3 (4.5-10.0)
[2025-01-03 06:36] LABS: Alanine Aminotransferase 80 U/L (6-50); Albumin Level 2.8 g/dL (3.5-5.1); Alkaline Phosphatase 161 U/L (38-126); Anion Gap 8 mmol/L (4-12); Aspartate Amino Transferase 31 U/L (17-59); Bilirubin,Total 0.9 mg/dL (0.2-1.3); Blood Urea Nitrogen 44 mg/dL (9-20); Calcium 7.9 mg/dL (8.4-10.2); Carbon Dioxide 24 mmol/L (22-30); Chloride 101 mmol/L (98-107); Estimated CRCL calculation 29 ml/min; Estimated Glomerular Filt Rate 20; Glucose 122 mg/dL (65-110); Phosphorus 4.2 mg/dL (2.5-4.5); Potassium 4.3 mmol/L (3.4-5.0); Sodium 133 mmol/L (137-145)
[2025-01-03 06:49] LABS: Partial Thromboplastin Time 75.4 Seconds (22.3-36.8)
[2025-01-03 06:59] LABS: Acanthocytes 1+; Anisocytosis 1+; Bite Cells 1+; Burr Cells 1+; Crenated RBC 1+; Hypochromasia 1+; Ovalocytes 1+; Platelet Estimate Adequate (Adequate); Poikilocytosis 2+; Polychromasia 1+; Schistocytes Rare
[2025-01-03 07:20] LABS: Glucose Point of Care 135 mg/dl (65-105)
--- NOTE | 2025-01-03 08:34 | PCPTNOTE ---
Patient refused treatment. Patient states I am not doing it! I am changing doctors! Educated patient on the importance of participating in therapy and patient continues to refuse. Patient up in chair c/o buttock discomfort while reclined in chair but refuses to change position and relieve pressure. Patient also refusing dialysis treatment.
--- NOTE | 2025-01-03 08:45 | PCOTNOTE ---
Patient unavailable for OT services at this time. Patient going to dialysis at this time.
--- NOTE | 2025-01-03 10:01 | P.PNNP_ITS ---
Progress Note: A&P Assessment and Plan (1) Acute kidney injury: Code(s): N17.9 - Acute kidney failure, unspecified Status: Acute Assessment and Plan: * as noted on admission * evaluation to date noted: * renal u/s normal * urine eosinophils negative * nephrotic range proteinuria * prerenal urine electrolytes * CPK mildly elevated (but not enought to affect kidney function) * further serologies pending * outpatient evaluation noted - normal complements but hematuria with positive * initiated LE[employer]/HD on 12/21/24 * s/p RENAL BIOPSY (on 12/22) with findings noted: * diabetic nephropathy/glomerulosclerosis (class IV) * significant interstitial fibrosis/tubular atrophy noted as well * fluctuating urine output noted * however, BUN + creatinine continue to rise without dialytic support * checking 24hr urine collection to better assess GFR/creatinine clearance * possible renal recovery? * HD today * Surgery consulted for tunneled HD catheter placement (2) Stage 3b chronic kidney disease: Code(s): N18.32 - Chronic kidney disease, stage 3b Status: Chronic Assessment and Plan: * baseline creatinine runs around 1.7 - 2.3mg/dl * secondary to diabetes (as noted by renal biopsy) and hypertension (3) Pneumonia: Code(s): J18.9 - Pneumonia, unspecified organism Status: Acute Assessment and Plan: * admission CXR with bibasilar infiltrates * completed course of antibiotics * respiratory status stable (4) Heart failure with mildly reduced ejection fraction: Code(s): I50.22 - Chronic systolic (congestive) heart failure Status: Acute Assessment and Plan: * known history * repeat Echo (12/18) noted: * severely reduced systolic function with EF 25-30% * diastolic dysfunction * mild valvular disease * moderate pulmonary hypertension * CXR with cardiomegaly, bibasilar infiltrates and small pleural effusions * Entresto and diuretics on hold given #1 * removing fluid with dialysis * not opposed to re-start entresto if necessary * Cardiology following (5) Encephalopathy: Code(s): G93.40 - Encephalopathy, unspecified Status: Acute Assessment and Plan: * doing better * doubt uremia playing a role given improvement in BUN * testing to date noted: * ammonia level is okay * B12 and folate are okay * WBC okay and no fevers so unlikely to be related to infection * aodium good * magnesium and calcium stable * CT of brain normal * ABGs reasonable * Neurology recommendations noted (6) Atrial flutter with rapid ventricular response: Code(s): I48.92 - Unspecified atrial flutter Status: Acute Assessment and Plan: * rate control strategy * on heparin gtt for anticoagulation * eventual plan to transition to oral anticoagulation (7) Transaminitis: Code(s): R74.01 - Elevation of levels of liver transaminase levels Status: Resolved Assessment and Plan: * normal earlier in November 2024 * hepatitis panel negative * abd US showing cholelithiasis and mildly dilated CBD; liver is normal in appearance * holding statin * liver biopsy (on 12/21) noted: * ongestive hepatopathy and congestive hepatic fibrosis * improving (8) Anemia: Code(s): D64.9 - Anemia, unspecified Status: Acute Assessment and Plan: * related to ELEANOR, CKD, and acute illness * Epogen with HD as needed * follow trend of H/H (9) Peripheral vascular disease: Code(s): I73.9 - Peripheral vascular disease, unspecified Status: Acute Assessment and Plan: * known history * on zetia but statin on hold given previous elevated LFTs * complicated by ongoing smoking * arterial dopplers noted (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 L Subjective Date/time seen: 01/03/25 10:01 Interval history: Follow-up for acute kidney injury/acute renal failure on chronic kidney disease. Tolerating dialysis treatment sitting up in chair at the time of my visit (seen on HD at 9:50AM); reportedly was agitated and angry earlier this morning; however, currently, seems much more calm and relaxed now; family with patient in treatment room during dialysis and case was discusse with them regarding his renal failure. Exam 2 Narrative: General: elderly male in NAD Heart: tachycardic; normal S1 and S2; no rub Lungs: clear anteriorly; decreased at bases Abdomen: obese but soft, nontender, nondistended, positive bowel sounds Extremities: no cyanosis or clubbing; 1+ edema in RLE; s/p left AKA Skin: no nodules Objective Data Vital Signs Vital Signs: Vital Signs Temp Pulse Resp BP Pulse Ox O2 Del Method 01/03/25 10:00 119 H 118/77 01/03/25 09:45 108 H 103/78 01/03/25 09:30 98 132/68 01/03/25 09:23 111 H 117/72 01/03/25 09:06 117 H 114/81 01/03/25 08:55 97.5 F L 118 H 18 117/74 97 01/03/25 05:58 97.1 F L 114 H 18 93/69 L 93 01/03/25 04:00 98 01/03/25 00:00 101 H 01/02/25 21:07 121 H 01/02/25 21:04 97.3 F L 121 H 18 115/91 H 99 01/02/25 20:00 113 H 01/02/25 20:00 Room Air 01/02/25 14:00 97.1 F L 109 H 20 115/80 100 01/02/25 14:00 Room Air Intake/Output Intake/Output: Intake & Output 12/31/24 01/01/25 01/02/25 01/03/25 23:59 23:59 23:59 23:59 Intake Total 1094.7 1369.1 1284.5 450 Output Total 1301 525 450 150 Balance -206.3 844.1 834.5 300 Meds/Results Medications: Active Medications Generic Name Dose Route Start Last Admin Trade Name Freq PRN Reason Stop Dose Admin Acetaminophen 650 mg 12/31/24 12:08 Acetaminophen 650 Mg Suppository RECTAL Q6H PRN Mild Pain (1-3) or Fever Aspirin 81 mg 12/20/24 08:00 01/02/25 08:58 Aspirin 81 Mg Chewable Tablet PO 81 mg DAILY@0800 [facility] Administration Calcium Carbonate 200 mg 12/18/24 22:39 Calcium Carbonate (Tums) 500 Mg (200 Mg Elemental) PO Q6H PRN Indigestion Dextrose 12.5 gm 12/17/24 22:39 Dextrose 50% 25 Gm/50 Ml Syringe IV PUSH PRN PRN Hypoglycemia Protocol Docusate Sodium 100 mg 12/23/24 21:00 01/02/25 21:07 Docusate Sodium 100 Mg Capsule PO 100 mg Q12HR REGINA Administration Ezetimibe 10 mg 12/18/24 09:00 01/02/25 08:58 Ezetimibe 10 Mg Tablet PO 10 mg DAILY REGINA Administration Glucagon 1 mg 12/17/24 22:39 Glucagon For Inj 1 Mg Vial IM PRN PRN Hypoglycemia Protocol Glucose 15 gm 12/17/24 22:39 Glucose Oral Gel 15 Gm Of Glucse In 37.5 Gm Tube PO PRN PRN Hypoglycemia Protocol Heparin Sodium (Porcine) 7,500 units 12/27/24 14:06 12/31/24 09:57 Heparin Sodium 5,000 Units/Ml Vial IV PUSH 7,500 units PRN PRN Administration aPTT less than 55 seconds Heparin Sodium (Porcine) 3,500 units 12/27/24 14:06 01/01/25 23:11 Heparin Sodium 5,000 Units/Ml Vial IV PUSH 3,500 units PRN PRN Administration aPTT 55 - 70 seconds Dextrose 1,000 mls @ 100 mls/hr 12/17/24 22:39 Dextrose 5% 1,000 Ml IVPB PRN PRN Hypoglycemia Protocol Albumin Human 50 mls @ 999 mls/hr 12/22/24 05:43 Albutein IVPB 01/21/25 05:42 Q10M PRN HYPOTENSION Heparin Sodium/Dextrose 25,000 units in 250 mls @ 19 mls/hr 12/27/24 14:10 01/03/25 00:25 Heparin Sodium/D5w 100 Units/Ml IV CONT 1,900 units/hr .[id number] REGINA 19 mls/hr Administration Protocol 1,900 UNITS/HR Insulin Aspart 2 - 5 units 12/29/24 12:00 01/03/25 07:53 Insulin Aspart (*Bkc) 100 Units/Ml SUB-Q Not Given TIDWM [facility] Protocol Insulin Aspart 2 - 5 units 12/29/24 21:00 01/02/25 21:08 Insulin Aspart (*Bkc) 100 Units/Ml SUB-Q Not Given HS [facility] Protocol Levothyroxine Sodium 250 mcg 12/21/24 06:30 01/03/25 05:44 Levothyroxine Sodium 125 Mcg Tablet PO 250 mcg [id number] REGINA Administration Levothyroxine Sodium 125 mcg 12/26/24 06:30 01/02/25 06:02 Levothyroxine Sodium 125 Mcg Tablet PO 125 mcg Mitchell@0630 [facility] Administration Metoprolol Tartrate 50 mg 01/02/25 21:00 01/02/25 21:07 Metoprolol Tartrate 50 Mg Tab PO 50 mg Q12HR REGINA Administration Multi-Ingred Cream/Lotion/Oil/Oint 1 applic 01/01/25 12:35 01/02/25 08:58 Eucerin Cream 120 Gm Jar TOPICAL 1 applic DAILY REGINA Administration Nicotine 1 patch 12/17/24 22:45 01/02/25 08:58 Nicotine (*Pbkc) 21 Mg Patch TRANSDERM 1 patch DAILY REGINA Administration Ondansetron HCl 4 mg 12/17/24 16:18 01/02/25 08:59 Ondansetron Inj 4 Mg/2 Ml Vial IV PUSH 4 mg Q4H PRN Administration Nausea Polyethylene Glycol 17 gm 01/03/25 09:00 Polyethylene Glycol 3350 17 Gm Powd.Pack PO QAM REGINA Quetiapine Fumarate 25 mg 12/31/24 21:00 01/02/25 21:07 Quetiapine Fumarate 25 Mg Tablet PO 25 mg HS REGINA Administration Sertraline HCl 100 mg 12/18/24 09:00 01/02/25 08:58 Sertraline Hcl 50 Mg Tablet PO 100 mg DAILY REGINA Administration Vitamin D 1,000 units 12/31/24 09:00 01/02/25 08:58 Cholecalciferol 1,000 Units Tablet PO 1,000 units DAILY REGINA Administration Radiology Results: ITS Impressions Lumbar Spine X-Ray 12/17/24 15:44 IMPRESSION: Anterior loss of volume of L1 which is most likely chronic. MRI evaluation advised. Otherwise, No acute osseous abnormality lumbar spine. Degenerative disc disease at the level of L4-L5. Venous Doppler Study 12/18/24 13:13 IMPRESSION: 1. No deep venous thrombosis. Abdomen Ultrasound 12/18/24 13:18 IMPRESSION: 1. Cholelithiasis. No evidence of acute cholecystitis. 2. Mildly dilated common duct. Renal Ultrasound 12/18/24 13:21 IMPRESSION: 1. Normal kidney sizes. No hydronephrosis. Lumbar Spine MRI 12/18/24 15:23 IMPRESSION: Limited examination secondary to motion artifact. No abnormal signal intensity or contrast enhancement is identified within the vertebral body of L1 to suggest acute traumatic injury. Within the visualized intervertebral disc spaces, moderate degenerative disease is noted, as detailed above. Duplex Scan Lower Extremity Artery 12/18/24 21:35 IMPRESSION: Abnormal peak systolic velocity and waveform morphology suggesting a popliteal or tibioperoneal trunk stenosis. Three-vessel blood flow into the right calf with single vessel blood flow into the right foot (on the submitted images) MRCP 12/21/24 08:48 IMPRESSION: 1. Study terminated at patient request prior to obtaining the normal complement of sequences including the MRCP images and which along with some motion artifact on the obtained sequences moderately limits evaluation. 2. Anasarca with small left and moderate-sized right pleural effusions, small amount of ascites and extensive body wall, as enteric and retroperitoneal edema. 3. Normal-appearing gallbladder with no evident cholelithiasis and with no intra or extrahepatic biliary ductal dilation. Sensitivity for tiny gallstones which were suggested on prior ultrasound is limited by motion artifact. 4. Cardiomegaly. Liver Biopsy Ultrasound 12/22/24 10:51 IMPRESSION: 1. Successful Ultrasound-guided random liver biopsy. Renal Biopsy Ultrasound 12/23/24 10:32 IMPRESSION: 1. Ultrasound-guided random left kidney core needle biopsy. Head CT 12/25/24 17:06 IMPRESSION: No acute intracranial process. Chest X-Ray 01/03/25 06:59 Impression: Mild pulmonary edema pattern with probable element of left lower lobe atelectasis. Small left pleural effusion. Right IJ line. Labs Labs: Laboratory Tests 01/03/25 05:58 01/03/25 05:58 Calcium 7.9 L Phosphorus 4.2 Magnesium 2.0 Total Bilirubin 0.9 AST 31 ALT 80 H Alkaline Phosphatase 161 H Total Protein 6.0 L Albumin 2.8 L
--- NOTE | 2025-01-03 11:21 | PCNFU ---
Nutrition Follow-Up Complete: Increased protein energy needs related to hemodialysis, as evidenced by labs, intakes 5-100% Goal:Adequate PO intake at least 75% meals and supplements Pt slowly progressing towards goal Pt current nutrition is Renal, minced and moist level 5, Ensure Enlive BID, nutrition ice cream cups BID. Nutrition recommendation: continue with current plan of care Last recorded weight is 110 kg. Bowel Motility: +BM 01/02 Labs Reviewed: Hgb:10.8, HCT:38.3, BUN:44, Cr:3.1, Glu:122, AIC:7.0 Meds Noted: heparin, novolog, miralax Skin: WNL Additional Notes: pt continues on a renal minced and moist level 5 diet, supplements in place. Intakes varied from 10-50%. Encourage po intake of meals and supplements. Continue with current plan of care. Monitoring intakes, labs, weights, diet orders, plan of care Follow up in 5 days
--- NOTE | 2025-01-03 12:48 | PC.NURSE ---
pt is agitated and refused his medications this morning and this afternoon when offered again.
[2025-01-03 12:51] LABS: Glucose Point of Care 111 mg/dl (65-105)
--- NOTE | 2025-01-03 12:55 | P.PNIM_ITS ---
Progress Note: A&P Assessment and Plan (1) Altered mental status: Code(s): R41.82 - Altered mental status, unspecified Status: Acute Assessment and Plan: * Patient has developed confused since 12/25/2024. He was receiving ativan and haldol prn for agitation * Ammonia negative * ABG unremarkable. B12 normal. TSH as mentioned below. Vit D <12.8 * CT head unremarkable. CXR showing small left and small-mod right pleural effusion with associated atelectasis and/or PNA * UA noted so started empirically on ceftriaxone * BCx (12/25) NGTD. UCx 12/25 negative so Rocephin stopped. * EEG 12/28 - abnormal record due to the absence of a normal background rhythm but without evidence of paroxysmal activity * Stopped all of his sedating mediations and Seroquel added * Mental status better. Continue to hold all sedating medications. Continue Seroquel at night. * Increase activity and try to keep awake most of the day (2) Abnormal transaminases: Code(s): R74.8 - Abnormal levels of other serum enzymes Status: Acute Assessment and Plan: * On admission, LFTs were mildly elevated. Hepatitis panel negative. Abd US showing cholelithiasis and mildly dilated CBD. Liver was normal in appearance. Lipitor held. Repeat levels on 12/20 much worse with AST 1539, ALT 1066, AP 479, normal bili. Lactic acid 1.1. Acet level <10. [place] due to congestion from heart failure * Consider autoimmune with + * IV fluids stopped. GI consulted and appreciate their input. * Patient was able to complete some of the MRCP. This showed anasarca, small left and moderate size right pleural effusion, small amount of ascites, extensive body edema and cardiomegaly. He had a normal appearing gallbladder with no evidence of cholelithiasis no intra or extrahepatic biliary ductal dilatation. Sensitivity was limited. * Status post liver biopsy 12/22/2024: congestive hepatopathy and congestive h epatic fibrosis score 1. * LFTs improving. [place] related to hepatic congestion. Follow. (3) Acute kidney injury: Code(s): N17.9 - Acute kidney failure, unspecified Status: Acute Assessment and Plan: * Patient presents with weakness and may have had underlying PNA. * Cr on admission 4.3. Baseline Cr 2.1-2.9 range. He was started on IV fluids. * Urine eos negative. Eve 42. Total CK 371. Urine prot/Cr 4.7gm consistent with nephrotic syndrome. * Complement normal. Hx of + 1:640. Renal US normal. * Nephrology consulted and appreciate their input. Cryoglobulin negative. * Creatinine was trending up; HD catheter placement 12/22/2024 and was started on hemodialysis. * Renal biopsy 12/23/2024 with advanced diabetic glomerulosclerosis class 4. 50-60% tubular atrophy and interstitial fibrosis. * Last dialysis today 01/03/2025 * UOP poor. Cr rising. * Appreciate nephrology input. Discussed with nephrology. * Tunneled cath being planned. (4) Pneumonia: Code(s): J18.9 - Pneumonia, unspecified organism Status: Acute Assessment and Plan: * Patient presents with weakness after having cold and cough symptoms for 3 weeks. No benefit after 2 Z-packs. * CXR showing bibasilar infiltrates. No fevers or hypoxia. WBC 12K. * He was started on Rocephin and Doxycycline. * WBC normal now. BCx NGTD. MRSA screen negative. * Urine Ag negative. Sputum Cx growing MSSA and yeast. * He completed a 7 day course. Rocephin restarted for possible UTI but UCx negative so stopped. * Follow off abx (last dose of Rocephin was 12/29 at 1215) (5) Heart failure with mildly reduced ejection fraction: Code(s): I50.22 - Chronic systolic (congestive) heart failure Status: Acute Assessment and Plan: * Echo showing severely reduced systolic fxn with EF 25-30% with diastolic dysfunction, mild valve disease and moderate pulmonary HTN. BNP >30K. * CXR showing CMG, bibasilar infiltrates and small pleural effusions. * Entresto and finerenone on hold. Diuretics not listed on home med list. * Holding Entresto. * Monitor UOP, renal fxn, daily weights and fluid balance. (6) Atrial flutter with rapid ventricular response: Code(s): I48.92 - Unspecified atrial flutter Status: Acute Assessment and Plan: * New onset atrial fibrillation. On metoprolol. * On heparin drip for now. Change to Eliquis when able * HR poorly controlled. Advance metoprolol. * Monitor HR (7) Type 2 diabetes mellitus with hyperglycemia, with long-term current use of insulin: Code(s): E11.65 - Type 2 diabetes mellitus with hyperglycemia; Z79.4 - halfway (current) use of insulin Status: Acute Assessment and Plan: * A1c 7%. The patient's blood glucose was reviewed * Patient was on an insulin pump at home. Concern patient was unable to handle his pump here so this was held. * Glucose remains well controlled off the insulin pump despite his improved eating habit * Continue AccuCheks covering with sliding scale. Hypoglycemia protocol available as needed. * Continue to monitor (8) Chronic kidney disease, stage 4 (severe): Code(s): N18.4 - Chronic kidney disease, stage 4 (severe) Status: Acute Assessment and Plan: As above (9) Status post above-knee amputation of left lower extremity: Code(s): Z89.612 - Acquired absence of left leg above knee Status: Acute Assessment and Plan: * Patient with known PAD. Venous doppler RLE negative for DVT. * Arterial doppler RLE suggestive of a popliteal or tibioperoneal trunk stenosis. There is three-vessel blood flow into the right calf with single vessel blood flow into the right foot. * Continue Zetia and ASA. Resume Lipitor when able. Plan # Hypothyroidism: Review of Endocrine note from 11/12 showing he was to skip the Friday Synthroid dose. TSH is 46.4. Free T4 is low-normal at 0.96. Total T3 is 0.5. Patient is currently on 250 mcg daily except no meds on Friday. Suspect the skipped dose has resulted in the change in his thyroid panel. Will adjust to 250mcg daily except added 125mcg on Sundays. # Tobacco dependence: Patient was educated about the benefits of smoking cessation # urinary retention status post cystoscopy with passive dilation of mild bulbar narrowing. Complex Hernandez catheter placement with 16 Czech coude on 12/20/2024. Maintain Hernandez catheter until improvement in volume status and mobility. # Low back pain - Lumbar MRI performed but no acute finding seen on limited imaging due to motion artifact. # meth abuse - Possible meth abuse to explain some of his mental status confusion prior to admission. Will discuss when patient more awake and alert. # DVT prophylaxis - Heparin # Code status - full Subjective Date/time seen: 01/03/25 12:55 Interval history: Patient refusing dialysis this morning and later agreed. Patient denies chest pain, palpitations, headache, dizziness, nausea, or vomiting. Spoke with sister Ruby and she stated that they wanted patient transferred to [facility] or she would not mind [place], she felt that doctors were not doing what they should. Ruby mentioned ex is the POA and will be coming up to the hospital. Patient when he returned from dialysis was wanting a ride home and stated he does not want to go to [facility]. Nurse reports that ex was good with care here. Review of Systems Review of Systems: All systems reviewed & are unremarkable except as noted in HPI and below Exam Const: General: comfortable and no acute distress Resp: Effort & Inspection: normal respiratory effort Auscultation: diminished lung sounds Cardio: Rate: tachycardic Other: Telemetry- ST 109. GI: GI Palp: Yes Soft to palpation Auscultation: normal bowel sounds Other: obese Neuro: Speech: normal speech Extrem: Other: Left AKA. no RLE pedal edema Psych: Other: upset in the morning about dialysis but later agreed to go. oriented to person, place, and year. Objective Data Vital Signs Vital Signs: Vital Signs - 24 hr 01/02/25 14:00 01/02/25 14:00 01/02/25 20:00 Temperature 97.1 F L Pulse Rate 109 H Respiratory Rate 20 Blood Pressure 115/80 Pulse Oximetry 100 Oxygen Delivery Room Air Room Air 01/02/25 20:00 01/02/25 21:04 01/02/25 21:07 Temperature 97.3 F L Pulse Rate 113 H 121 H 121 H Respiratory Rate 18 Blood Pressure 115/91 H Pulse Oximetry 99 Oxygen Delivery 01/03/25 00:00 01/03/25 04:00 01/03/25 05:58 Temperature 97.1 F L Pulse Rate 101 H 98 114 H Respiratory Rate 18 Blood Pressure 93/69 L Pulse Oximetry 93 Oxygen Delivery 01/03/25 08:55 01/03/25 09:06 01/03/25 09:23 Temperature 97.5 F L Pulse Rate 118 H 117 H 111 H Respiratory Rate 18 Blood Pressure 117/74 114/81 117/72 Pulse Oximetry 97 Oxygen Delivery 01/03/25 09:30 01/03/25 09:45 01/03/25 10:00 Temperature Pulse Rate 98 108 H 119 H Respiratory Rate Blood Pressure 132/68 103/78 118/77 Pulse Oximetry Oxygen Delivery 01/03/25 10:15 01/03/25 10:30 01/03/25 10:45 Temperature Pulse Rate 104 H 102 H 104 H Respiratory Rate Blood Pressure 135/80 136/80 132/81 Pulse Oximetry Oxygen Delivery 01/03/25 11:00 01/03/25 11:15 01/03/25 11:30 Temperature Pulse Rate 104 H 104 H 104 H Respiratory Rate Blood Pressure 125/79 138/76 125/75 Pulse Oximetry Oxygen Delivery 01/03/25 11:45 01/03/25 12:00 01/03/25 12:10 Temperature Pulse Rate 104 H 120 H 101 H Respiratory Rate Blood Pressure 131/80 126/88 120/77 Pulse Oximetry Oxygen Delivery 01/03/25 12:25 Temperature 97.7 F Pulse Rate 107 H Respiratory Rate 18 Blood Pressure 115/77 Pulse Oximetry 97 Oxygen Delivery Intake/Output Intake/Output: Intake & Output 12/31/24 01/01/25 01/02/25 01/03/25 23:59 23:59 23:59 23:59 Intake Total 1094.7 1369.1 1284.5 625.8 Output Total 1301 307 903 0938 Balance -206.3 844.1 834.5 -1281.2 Meds/Results Medications: Active Medications Generic Name Dose Route Start Last Admin Trade Name Freq PRN Reason Stop Dose Admin Acetaminophen 650 mg 12/31/24 12:08 Acetaminophen 650 Mg Suppository RECTAL Q6H PRN Mild Pain (1-3) or Fever Aspirin 81 mg 12/20/24 08:00 01/03/25 12:46 Aspirin 81 Mg Chewable Tablet PO Not Given DAILY@0800 REGINA Calcium Carbonate 200 mg 12/18/24 22:39 Calcium Carbonate (Tums) 500 Mg (200 Mg Elemental) PO Q6H PRN Indigestion Dextrose 12.5 gm 12/17/24 22:39 Dextrose 50% 25 Gm/50 Ml Syringe IV PUSH PRN PRN Hypoglycemia Protocol Docusate Sodium 100 mg 12/23/24 21:00 01/03/25 12:46 Docusate Sodium 100 Mg Capsule PO Not Given Q12HR [facility] Ezetimibe 10 mg 12/18/24 09:00 01/03/25 12:47 Ezetimibe 10 Mg Tablet PO Not Given DAILY REGINA Glucagon 1 mg 12/17/24 22:39 Glucagon For Inj 1 Mg Vial IM PRN PRN Hypoglycemia Protocol Glucose 15 gm 12/17/24 22:39 Glucose Oral Gel 15 Gm Of Glucse In 37.5 Gm Tube PO PRN PRN Hypoglycemia Protocol Heparin Sodium (Porcine) 7,500 units 12/27/24 14:06 12/31/24 09:57 Heparin Sodium 5,000 Units/Ml Vial IV PUSH 7,500 units PRN PRN Administration aPTT less than 55 seconds Heparin Sodium (Porcine) 3,500 units 12/27/24 14:06 01/01/25 23:11 Heparin Sodium 5,000 Units/Ml Vial IV PUSH 3,500 units PRN PRN Administration aPTT 55 - 70 seconds Dextrose 1,000 mls @ 100 mls/hr 12/17/24 22:39 Dextrose 5% 1,000 Ml IVPB PRN PRN Hypoglycemia Protocol Albumin Human 50 mls @ 999 mls/hr 12/22/24 05:43 Albutein IVPB 01/21/25 05:42 Q10M PRN HYPOTENSION Heparin Sodium/Dextrose 25,000 units in 250 mls @ 19 mls/hr 12/27/24 14:10 01/03/25 09:40 Heparin Sodium/D5w 100 Units/Ml IV CONT 1,900 units/hr .[id number] REGINA 19 mls/hr Titration Protocol 1,900 UNITS/HR Insulin Aspart 2 - 5 units 12/29/24 12:00 01/03/25 11:57 Insulin Aspart (*Bkc) 100 Units/Ml SUB-Q Not Given TIDWM [facility] Protocol Insulin Aspart 2 - 5 units 12/29/24 21:00 01/02/25 21:08 Insulin Aspart (*Bkc) 100 Units/Ml SUB-Q Not Given HS [facility] Protocol Levothyroxine Sodium 250 mcg 12/21/24 06:30 01/03/25 05:44 Levothyroxine Sodium 125 Mcg Tablet PO 250 mcg [id number]@[id number] REGINA Administration Levothyroxine Sodium 125 mcg 12/26/24 06:30 01/02/25 06:02 Levothyroxine Sodium 125 Mcg Tablet PO 125 mcg Mitchell@0630 REGINA Administration Metoprolol Tartrate 50 mg 01/02/25 21:00 01/03/25 12:46 Metoprolol Tartrate 50 Mg Tab PO Not Given Q12HR REGINA Multi-Ingred Cream/Lotion/Oil/Oint 1 applic 01/01/25 12:35 01/02/25 08:58 Eucerin Cream 120 Gm Jar TOPICAL 1 applic DAILY REGINA Administration Nicotine 1 patch 12/17/24 22:45 01/03/25 12:47 Nicotine (*Pbkc) 21 Mg Patch TRANSDERM Not Given DAILY REGINA Ondansetron HCl 4 mg 12/17/24 16:18 01/02/25 08:59 Ondansetron Inj 4 Mg/2 Ml Vial IV PUSH 4 mg Q4H PRN Administration Nausea Polyethylene Glycol 17 gm 01/03/25 09:00 01/03/25 12:47 Polyethylene Glycol 3350 17 Gm Powd.Pack PO Not Given QAM REGINA Quetiapine Fumarate 25 mg 12/31/24 21:00 01/02/25 21:07 Quetiapine Fumarate 25 Mg Tablet PO 25 mg HS REGINA Administration Sertraline HCl 100 mg 12/18/24 09:00 01/03/25 12:47 Sertraline Hcl 50 Mg Tablet PO Not Given DAILY REGINA Vitamin D 1,000 units 12/31/24 09:00 01/03/25 12:46 Cholecalciferol 1,000 Units Tablet PO Not Given DAILY REGINA Radiology Results: ITS Impressions Lumbar Spine X-Ray 12/17/24 15:44 IMPRESSION: Anterior loss of volume of L1 which is most likely chronic. MRI evaluation advised. Otherwise, No acute osseous abnormality lumbar spine. Degenerative disc disease at the level of L4-L5. Venous Doppler Study 12/18/24 13:13 IMPRESSION: 1. No deep venous thrombosis. Abdomen Ultrasound 12/18/24 13:18 IMPRESSION: 1. Cholelithiasis. No evidence of acute cholecystitis. 2. Mildly dilated common duct. Renal Ultrasound 12/18/24 13:21 IMPRESSION: 1. Normal kidney sizes. No hydronephrosis. Lumbar Spine MRI 12/18/24 15:23 IMPRESSION: Limited examination secondary to motion artifact. No abnormal signal intensity or contrast enhancement is identified within the vertebral body of L1 to suggest acute traumatic injury. Within the visualized intervertebral disc spaces, moderate degenerative disease is noted, as detailed above. Duplex Scan Lower Extremity Artery 12/18/24 21:35 IMPRESSION: Abnormal peak systolic velocity and waveform morphology suggesting a popliteal or tibioperoneal trunk stenosis. Three-vessel blood flow into the right calf with single vessel blood flow into the right foot (on the submitted images) MRCP 12/21/24 08:48 IMPRESSION: 1. Study terminated at patient request prior to obtaining the normal complement of sequences including the MRCP images and which along with some motion artifact on the obtained sequences moderately limits evaluation. 2. Anasarca with small left and moderate-sized right pleural effusions, small amount of ascites and extensive body wall, as enteric and retroperitoneal edema. 3. Normal-appearing gallbladder with no evident cholelithiasis and with no intra or extrahepatic biliary ductal dilation. Sensitivity for tiny gallstones which were suggested on prior ultrasound is limited by motion artifact. 4. Cardiomegaly. Liver Biopsy Ultrasound 12/22/24 10:51 IMPRESSION: 1. Successful Ultrasound-guided random liver biopsy. Renal Biopsy Ultrasound 12/23/24 10:32 IMPRESSION: 1. Ultrasound-guided random left kidney core needle biopsy. Head CT 12/25/24 17:06 IMPRESSION: No acute intracranial process. Chest X-Ray 01/03/25 06:59 Impression: Mild pulmonary edema pattern with probable element of left lower lobe atelectasis. Small left pleural effusion. Right IJ line. Labs Labs: Laboratory Results - last 24 hr 01/02/25 01/02/25 01/02/25 13:26 16:32 20:04 WBC RBC Hgb Hct MCV MCH MCHC RDW Plt Count MPV Immature Gran % (Auto) Neut % (Auto) Lymph % (Auto) [place] % (Auto) Eos % (Auto) Baso % (Auto) Lymph # (Auto) [place] # (Auto) Eos # (Auto) Baso # (Auto) Abs Immat Gran (auto) Absolute Neuts (auto) Absolute Nucleated RBC Band Neutrophils % Nucleated RBC % Platelet Estimate Polychromasia Hypochromasia Poikilocytosis Anisocytosis Ovalocytes [place] Cells Bite Cells Crenated Cell Acanthocytes (Spur) Schistocytes APTT 73.6 H Sodium Potassium Chloride Carbon Dioxide Anion Gap BUN Creatinine Estim Creat Clear Calc Estimated GFR Glucose POC Capillary Glucose 177 H 155 H Calcium Phosphorus Magnesium Total Bilirubin AST ALT Alkaline Phosphatase Total Protein Albumin Blood Type Antibody Screen 01/02/25 01/03/25 01/03/25 21:13 05:58 07:11 WBC 8.7 RBC 4.45 L Hgb 10.8 L Hct 38.3 L MCV 86.1 MCH 24.3 L MCHC 28.2 L RDW 18.9 H Plt Count 270 MPV 10.4 Immature Gran % (Auto) 0.6 H Neut % (Auto) 55.3 Lymph % (Auto) 30.1 [place] % (Auto) 10.6 H Eos % (Auto) 2.4 Baso % (Auto) 1.0 Lymph # (Auto) 2.61 [place] # (Auto) 0.9 H Eos # (Auto) 0.2 Baso # (Auto) 0.1 Abs Immat Gran (auto) 0.05 H Absolute Neuts (auto) 4.8 Absolute Nucleated RBC 0.060 H Band Neutrophils % Not Reportable Nucleated RBC % 0.7 H Platelet Estimate Adequate Polychromasia 1+ Hypochromasia 1+ Poikilocytosis 2+ Anisocytosis 1+ Ovalocytes 1+ [place] Cells 1+ Bite Cells 1+ Crenated Cell 1+ Acanthocytes (Spur) 1+ Schistocytes Rare APTT 73.2 H 75.4 H Sodium 133 L Potassium 4.3 Chloride 101 Carbon Dioxide 24 Anion Gap 8 BUN 44 H Creatinine 3.10 H Estim Creat Clear Calc 29 Estimated GFR 20 L Glucose 122 H POC Capillary Glucose 135 H Calcium 7.9 L Phosphorus 4.2 Magnesium 2.0 Total Bilirubin 0.9 AST 31 ALT 80 H Alkaline Phosphatase 161 H Total Protein 6.0 L Albumin 2.8 L Blood Type Antibody Screen 01/03/25 01/03/25 09:29 12:49 WBC RBC Hgb Hct MCV MCH MCHC RDW Plt Count MPV Immature Gran % (Auto) Neut % (Auto) Lymph % (Auto) [place] % (Auto) Eos % (Auto) Baso % (Auto) Lymph # (Auto) [place] # (Auto) Eos # (Auto) Baso # (Auto) Abs Immat Gran (auto) Absolute Neuts (auto) Absolute Nucleated RBC Band Neutrophils % Nucleated RBC % Platelet Estimate Polychromasia Hypochromasia Poikilocytosis Anisocytosis Ovalocytes [place] Cells Bite Cells Crenated Cell Acanthocytes (Spur) Schistocytes APTT Sodium Potassium Chloride Carbon Dioxide Anion Gap BUN Creatinine Estim Creat Clear Calc Estimated GFR Glucose POC Capillary Glucose 111 H Calcium Phosphorus Magnesium Total Bilirubin AST ALT Alkaline Phosphatase Total Protein Albumin Blood Type AB Positive Antibody Screen Negative Quality VTE Prophylaxis VTE prophylaxis: pharmacologic ordered
--- NOTE | 2025-01-03 14:15 | PCOTNOTE ---
Attempted to see Patient at this time. Upon arriving to his room, Patient is screaming at his caregiver and adamantly refused therapy services. Patient states the only thing he is going to do, is leave, go to his house, shower and then he would think about coming back for his scheduled procedure for tomorrow . Patient was offered to get cleaned up here as for a discharge to his house could not be dome at this time. Patient refuses anything but his home shower and some smokes .
--- NOTE | 2025-01-03 16:15 | PCOTNOTE ---
Reduced pt. frequency for occupational therpay treatment, as pt. show limited interest in participation and behavioral concerns, which limit safety while participating. Will increased treatment frequency if pt. demonstrates safety and progress.
[2025-01-03 16:25] LABS: Glucose Point of Care 106 mg/dl (65-105)
[2025-01-03] MEDS: INSULIN ASPART (*BKC) 100 UNITS/ML SUB-Q (21:44)
[2025-01-03] MEDS: METOPROLOL TARTRATE 50 MG TAB PO (23:01)
[2025-01-03] MEDS: DOCUSATE SODIUM 100 MG CAPSULE PO (23:01)
[2025-01-03] MEDS: QUEtiapine FUMARATE 25 MG TABLET PO (23:01)
[2025-01-03] MEDS: HYDROcodone/acetaminophen (*CRX) 5-325 MG TABLET 1 TAB PO (23:02)
[2025-01-04] VITALS (11 sets, daily range): BP systolic 103–108; BP diastolic 70–79; PULSE 86–122; RESP 20–22; TEMP 35.6–36.1; O2SAT 93–100
[2025-01-04 02:43] LABS: Glucose Point of Care 258 mg/dl (65-105)
[2025-01-04 06:11] LABS: Basophils Absolute Auto 0.1 K/mm3 (0.0-0.1); Eosinophils Absolute Auto 0.2 K/mm3 (0-0.3); Eosinophils Percent Auto 2.6 % (0-4.4); Hematocrit 37.4 % (42.0-52.0); Hemoglobin 10.2 g/dL (14.0-18.0); Immature Granulocyte Absolute 0.04 K/mm3 (0.00-0.031); Immature Granulocyte Percent A 0.4 % (0-0.5); Lymphocytes Absolute Auto 2.72 K/mm3 (0.9-3.2); Lymphocytes Percent Auto 29.2 % (18.3-44.2); Mean Corpuscular HGB Conc 27.3 g/dl (32-36); Mean Corpuscular Hemoglobin 24.3 pg (26-34); Mean Platelet Volume 10.3 fl (7.4-10.4); Monocytes Absolute Auto 1.1 K/mm3 (0.1-0.6); Monocytes Percent Auto 11.7 % (2.6-8.5); Neutrophils Absolute Auto 5.2 K/mm3 (1.3-6.7); Neutrophils Percent Auto 55.1 % (45.5-73.1); Nucleated Red Blood Cells Perc 0.9 % (0.0-0.2); Platelet Count Result 226 k/mm3 (150-375); Red Cell Distribution Width 18.8 % (11.5-14.5); White Blood Count 9.3 K/mm3 (4.5-10.0)
[2025-01-04 06:23] LABS: Partial Thromboplastin Time 93.6 Seconds (22.3-36.8)
[2025-01-04 06:34] LABS: Alanine Aminotransferase 64 U/L (6-50); Albumin Level 2.6 g/dL (3.5-5.1); Alkaline Phosphatase 141 U/L (38-126); Anion Gap 8 mmol/L (4-12); Aspartate Amino Transferase 26 U/L (17-59); Bilirubin,Total 0.7 mg/dL (0.2-1.3); Blood Urea Nitrogen 32 mg/dL (9-20); Calcium 7.7 mg/dL (8.4-10.2); Carbon Dioxide 25 mmol/L (22-30); Chloride 102 mmol/L (98-107); Estimated CRCL calculation 34 ml/min; Estimated Glomerular Filt Rate 23; Glucose 127 mg/dL (65-110); Magnesium 2.1 mg/dL (1.6-2.3); Phosphorus 4.2 mg/dL (2.5-4.5); Potassium 4.3 mmol/L (3.4-5.0); Sodium 135 mmol/L (137-145)
[2025-01-04 06:39] LABS: Acanthocytes 1+; Anisocytosis 1+; Burr Cells 1+; Crenated RBC 1+; Hypochromasia 1+; Ovalocytes 1+; Platelet Estimate Adequate (Adequate); Poikilocytosis 1+; Schistocytes None Seen
[2025-01-04 07:39] LABS: Glucose Point of Care 119 mg/dl (65-105)
[2025-01-04] MEDS: HEPARIN SOD/D5W 100 UNITS/ML 25,000 UNITS/250 ML BAG 19 UNITS IV CONT ×2 (09:10→23:35)
[2025-01-04] MEDS: METOPROLOL TARTRATE 50 MG TAB PO ×2 (09:47→20:16)
--- NOTE | 2025-01-04 09:55 | P.PNNP_ITS ---
Progress Note: A&P Assessment and Plan (1) Acute kidney injury: Code(s): N17.9 - Acute kidney failure, unspecified Status: Acute Assessment and Plan: * as noted on admission * evaluation to date noted: * renal u/s normal * urine eosinophils negative * nephrotic range proteinuria * prerenal urine electrolytes * CPK mildly elevated (but not enought to affect kidney function) * further serologies pending * outpatient evaluation noted - normal complements but hematuria with positive * initiated [employer]/HD on 12/21/24 * s/p RENAL BIOPSY (on 12/22) with findings noted: * diabetic nephropathy/glomerulosclerosis (class IV) * significant interstitial fibrosis/tubular atrophy noted as well * fluctuating urine output noted * however, BUN + creatinine continue to rise without dialytic support * checking 24hr urine collection to better assess GFR/creatinine clearance * possible renal recovery? * HD tomorrow - will continue M/W/F schedule for now * Surgery following for tunneled HD catheter placement (2) Stage 3b chronic kidney disease: Code(s): N18.32 - Chronic kidney disease, stage 3b Status: Chronic Assessment and Plan: * baseline creatinine runs around 1.7 - 2.3mg/dl * secondary to diabetes (as noted by renal biopsy) and hypertension (3) Pneumonia: Code(s): J18.9 - Pneumonia, unspecified organism Status: Acute Assessment and Plan: * admission CXR with bibasilar infiltrates * completed course of antibiotics * respiratory status stable (4) Heart failure with mildly reduced ejection fraction: Code(s): I50.22 - Chronic systolic (congestive) heart failure Status: Acute Assessment and Plan: * known history * repeat Echo (12/18) noted: * severely reduced systolic function with EF 25-30% * diastolic dysfunction * mild valvular disease * moderate pulmonary hypertension * CXR with cardiomegaly, bibasilar infiltrates and small pleural effusions * Entresto and diuretics on hold given #1 * removing fluid with dialysis * not opposed to re-start entresto if necessary * Cardiology following (5) Encephalopathy: Code(s): G93.40 - Encephalopathy, unspecified Status: Acute Assessment and Plan: * doing better * doubt uremia playing a role given improvement in BUN * testing to date noted: * ammonia level is okay * B12 and folate are okay * WBC okay and no fevers so unlikely to be related to infection * aodium good * magnesium and calcium stable * CT of brain normal * ABGs reasonable * Neurology recommendations noted (6) Atrial flutter with rapid ventricular response: Code(s): I48.92 - Unspecified atrial flutter Status: Acute Assessment and Plan: * rate control strategy * on heparin gtt for anticoagulation * eventual plan to transition to oral anticoagulation (7) Transaminitis: Code(s): R74.01 - Elevation of levels of liver transaminase levels Status: Resolved Assessment and Plan: * resolving if not resolved * normal earlier in November 2024 * hepatitis panel negative * abd US showing cholelithiasis and mildly dilated CBD; liver is normal in appearance * holding statin * liver biopsy (on 12/21) noted: * congestive hepatopathy and congestive hepatic fibrosis (8) Anemia: Code(s): D64.9 - Anemia, unspecified Status: Acute Assessment and Plan: * related to ELEANOR, CKD, and acute illness * Epogen with HD as needed * follow trend of H/H (9) Peripheral vascular disease: Code(s): I73.9 - Peripheral vascular disease, unspecified Status: Acute Assessment and Plan: * known history * on zetia but statin on hold given previous elevated LFTs * complicated by ongoing smoking * arterial dopplers noted (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 L Subjective Date/time seen: 01/04/25 09:55 Interval history: Follow-up for acute kidney injury/acute renal failure on chronic kidney disease. Tolerated dialysis treatment yesterday without any issue or problems; mentation seems relatively stable since I last saw him yesterday -- he is aware of the plan for tunneled HD catheter placement later today; other some fatigue, no other major complaints voiced at the time of my visit. Exam 2 Narrative: General: elderly male in NAD Heart: tachycardic; normal S1 and S2; no rub Lungs: clear anteriorly; decreased at bases Abdomen: obese but soft, nontender, nondistended, positive bowel sounds Extremities: no cyanosis or clubbing; trace - 1+ edema in RLE; s/p left AKA Skin: warm and dry Objective Data Vital Signs Vital Signs: Vital Signs Temp Pulse Resp BP Pulse Ox 01/04/25 09:47 103 H 01/04/25 05:57 96.7 F L 98 20 104/78 100 01/04/25 04:00 86 01/04/25 00:00 122 H 01/03/25 23:01 121 H 01/03/25 22:00 97.2 F L 122 H 20 107/78 100 01/03/25 20:00 121 H 01/03/25 16:00 116 H 01/03/25 12:25 97.7 F 107 H 18 115/77 97 01/03/25 12:10 101 H 120/77 01/03/25 12:00 110 H 01/03/25 12:00 120 H 126/88 01/03/25 11:45 104 H 131/80 Intake/Output Intake/Output: Intake & Output 01/01/25 01/02/25 01/03/25 01/04/25 23:59 23:59 23:59 23:59 Intake Total 1369.1 1284.5 940.0 250.0 Output Total 506 867 0026 250 Balance 844.1 834.5 -967.0 0 Meds/Results Medications: Active Medications Generic Name Dose Route Start Last Admin Trade Name Freq PRN Reason Stop Dose Admin Acetaminophen 650 mg 12/31/24 12:08 Acetaminophen 650 Mg Suppository RECTAL Q6H PRN Mild Pain (1-3) or Fever Aspirin 81 mg 12/20/24 08:00 01/04/25 09:16 Aspirin 81 Mg Chewable Tablet PO Not Given DAILY@0800 REGINA Calcium Carbonate 200 mg 12/18/24 22:39 Calcium Carbonate (Tums) 500 Mg (200 Mg Elemental) PO Q6H PRN Indigestion Dextrose 12.5 gm 12/17/24 22:39 Dextrose 50% 25 Gm/50 Ml Syringe IV PUSH PRN PRN Hypoglycemia Protocol Docusate Sodium 100 mg 12/23/24 21:00 01/04/25 09:18 Docusate Sodium 100 Mg Capsule PO Not Given Q12HR REGINA Ezetimibe 10 mg 12/18/24 09:00 01/04/25 09:18 Ezetimibe 10 Mg Tablet PO Not Given DAILY REGINA Glucagon 1 mg 12/17/24 22:39 Glucagon For Inj 1 Mg Vial IM PRN PRN Hypoglycemia Protocol Glucose 15 gm 12/17/24 22:39 Glucose Oral Gel 15 Gm Of Glucse In 37.5 Gm Tube PO PRN PRN Hypoglycemia Protocol Heparin Sodium (Porcine) 7,500 units 12/27/24 14:06 12/31/24 09:57 Heparin Sodium 5,000 Units/Ml Vial IV PUSH 7,500 units PRN PRN Administration aPTT less than 55 seconds Heparin Sodium (Porcine) 3,500 units 12/27/24 14:06 01/01/25 23:11 Heparin Sodium 5,000 Units/Ml Vial IV PUSH 3,500 units PRN PRN Administration aPTT 55 - 70 seconds Dextrose 1,000 mls @ 100 mls/hr 12/17/24 22:39 Dextrose 5% 1,000 Ml IVPB PRN PRN Hypoglycemia Protocol Albumin Human 50 mls @ 999 mls/hr 12/22/24 05:43 Albutein IVPB 01/21/25 05:42 Q10M PRN HYPOTENSION Heparin Sodium/Dextrose 25,000 units in 250 mls @ 19 mls/hr 12/27/24 14:10 01/04/25 11:22 Heparin Sodium/D5w 100 Units/Ml IV CONT Not Given .[id number] [facility] Protocol 1,900 UNITS/HR Insulin Aspart 2 - 5 units 12/29/24 12:00 01/04/25 09:17 Insulin Aspart (*Bkc) 100 Units/Ml SUB-Q Not Given TIDWM [facility] Protocol Insulin Aspart 2 - 5 units 12/29/24 21:00 01/03/25 21:44 Insulin Aspart (*Bkc) 100 Units/Ml SUB-Q 3 units HS REGINA Administration Protocol Levothyroxine Sodium 250 mcg 12/21/24 06:30 01/04/25 06:40 Levothyroxine Sodium 125 Mcg Tablet PO Not Given [id number] REGINA Levothyroxine Sodium 125 mcg 12/26/24 06:30 01/02/25 06:02 Levothyroxine Sodium 125 Mcg Tablet PO 125 mcg Mitchell@0630 [facility] Administration Metoprolol Tartrate 50 mg 01/02/25 21:00 01/04/25 09:47 Metoprolol Tartrate 50 Mg Tab PO 50 mg Q12HR [facility] Administration Multi-Ingred Cream/Lotion/Oil/Oint 1 applic 01/01/25 12:35 01/03/25 16:07 Eucerin Cream 120 Gm Jar TOPICAL Not Given DAILY [facility] Nicotine 1 patch 12/17/24 22:45 01/04/25 09:19 Nicotine (*Pbkc) 21 Mg Patch TRANSDERM Not Given DAILY [facility] Ondansetron HCl 4 mg 12/17/24 16:18 01/02/25 08:59 Ondansetron Inj 4 Mg/2 Ml Vial IV PUSH 4 mg Q4H PRN Administration Nausea Polyethylene Glycol 17 gm 01/03/25 09:00 01/04/25 09:19 Polyethylene Glycol 3350 17 Gm Powd.Pack PO Not Given QAM REGINA Quetiapine Fumarate 25 mg 12/31/24 21:00 01/03/25 23:01 Quetiapine Fumarate 25 Mg Tablet PO 25 mg HS REGINA Administration Sertraline HCl 100 mg 12/18/24 09:00 01/04/25 09:19 Sertraline Hcl 50 Mg Tablet PO Not Given DAILY REGINA Vitamin D 1,000 units 12/31/24 09:00 01/04/25 09:18 Cholecalciferol 1,000 Units Tablet PO Not Given DAILY REGINA Radiology Results: ITS Impressions Lumbar Spine X-Ray 12/17/24 15:44 IMPRESSION: Anterior loss of volume of L1 which is most likely chronic. MRI evaluation advised. Otherwise, No acute osseous abnormality lumbar spine. Degenerative disc disease at the level of L4-L5. Venous Doppler Study 12/18/24 13:13 IMPRESSION: 1. No deep venous thrombosis. Abdomen Ultrasound 12/18/24 13:18 IMPRESSION: 1. Cholelithiasis. No evidence of acute cholecystitis. 2. Mildly dilated common duct. Renal Ultrasound 12/18/24 13:21 IMPRESSION: 1. Normal kidney sizes. No hydronephrosis. Lumbar Spine MRI 12/18/24 15:23 IMPRESSION: Limited examination secondary to motion artifact. No abnormal signal intensity or contrast enhancement is identified within the vertebral body of L1 to suggest acute traumatic injury. Within the visualized intervertebral disc spaces, moderate degenerative disease is noted, as detailed above. Duplex Scan Lower Extremity Artery 12/18/24 21:35 IMPRESSION: Abnormal peak systolic velocity and waveform morphology suggesting a popliteal or tibioperoneal trunk stenosis. Three-vessel blood flow into the right calf with single vessel blood flow into the right foot (on the submitted images) MRCP 12/21/24 08:48 IMPRESSION: 1. Study terminated at patient request prior to obtaining the normal complement of sequences including the MRCP images and which along with some motion artifact on the obtained sequences moderately limits evaluation. 2. Anasarca with small left and moderate-sized right pleural effusions, small amount of ascites and extensive body wall, as enteric and retroperitoneal edema. 3. Normal-appearing gallbladder with no evident cholelithiasis and with no intra or extrahepatic biliary ductal dilation. Sensitivity for tiny gallstones which were suggested on prior ultrasound is limited by motion artifact. 4. Cardiomegaly. Liver Biopsy Ultrasound 12/22/24 10:51 IMPRESSION: 1. Successful Ultrasound-guided random liver biopsy. Renal Biopsy Ultrasound 12/23/24 10:32 IMPRESSION: 1. Ultrasound-guided random left kidney core needle biopsy. Head CT 12/25/24 17:06 IMPRESSION: No acute intracranial process. Chest X-Ray 01/03/25 06:59 Impression: Mild pulmonary edema pattern with probable element of left lower lobe atelectasis. Small left pleural effusion. Right IJ line. Labs Labs: Laboratory Tests 01/04/25 06:01 01/04/25 06:01 Calcium 7.7 L Phosphorus 4.2 Magnesium 2.1 Total Bilirubin 0.7 AST 26 ALT 64 H Alkaline Phosphatase 141 H Total Protein 5.0 L Albumin 2.6 L
[2025-01-04 12:07] LABS: Glucose Point of Care 121 mg/dl (65-105)
[2025-01-04] MEDS: EUCERIN CREAM 120 GM JAR 1 APPLIC TOPICAL (12:13)
--- NOTE | 2025-01-04 15:31 | P.PNIM_ITS ---
Progress Note: A&P Assessment and Plan (1) Altered mental status: Code(s): R41.82 - Altered mental status, unspecified Status: Acute Assessment and Plan: * Patient has developed confused since 12/25/2024. He was receiving ativan and haldol prn for agitation * Ammonia negative * ABG unremarkable. B12 normal. TSH as mentioned below. Vit D <12.8 * CT head unremarkable. CXR showing small left and small-mod right pleural effusion with associated atelectasis and/or PNA * UA noted so started empirically on ceftriaxone * BCx (12/25) NGTD. UCx 12/25 negative so Rocephin stopped. * EEG 12/28 - abnormal record due to the absence of a normal background rhythm but without evidence of paroxysmal activity * Stopped all of his sedating mediations and Seroquel added * Mental status better. Continue to hold all sedating medications. Continue Seroquel at night. * Increase activity and try to keep awake most of the day (2) Abnormal transaminases: Code(s): R74.8 - Abnormal levels of other serum enzymes Status: Acute Assessment and Plan: * On admission, LFTs were mildly elevated. Hepatitis panel negative. Abd US showing cholelithiasis and mildly dilated CBD. Liver was normal in appearance. Lipitor held. Repeat levels on 12/20 much worse with AST 1539, ALT 1066, AP 479, normal bili. Lactic acid 1.1. Acet level <10. Ernest due to congestion from heart failure * Consider autoimmune with + * IV fluids stopped. GI consulted and appreciate their input. * Patient was able to complete some of the MRCP. This showed anasarca, small left and moderate size right pleural effusion, small amount of ascites, extensive body edema and cardiomegaly. He had a normal appearing gallbladder with no evidence of cholelithiasis no intra or extrahepatic biliary ductal dilatation. Sensitivity was limited. * Status post liver biopsy 12/22/2024: congestive hepatopathy and congestive h epatic fibrosis score 1. * LFTs improving. Ernest related to hepatic congestion. Follow. (3) Acute kidney injury: Code(s): N17.9 - Acute kidney failure, unspecified Status: Acute Assessment and Plan: * Patient presents with weakness and may have had underlying PNA. * Cr on admission 4.3. Baseline Cr 2.1-2.9 range. He was started on IV fluids. * Urine eos negative. Eve 42. Total CK 371. Urine prot/Cr 4.7gm consistent with nephrotic syndrome. * Complement normal. Hx of + 1:640. Renal US normal. * Nephrology consulted and appreciate their input. Cryoglobulin negative. * Creatinine was trending up; HD catheter placement 12/22/2024 and was started on hemodialysis. * Renal biopsy 12/23/2024 with advanced diabetic glomerulosclerosis class 4. 50-60% tubular atrophy and interstitial fibrosis. * Last dialysis today 01/03/2025 * UOP poor. Cr rising. * Appreciate nephrology input. Discussed with nephrology. * Tunneled cath being planned. (4) Pneumonia: Code(s): J18.9 - Pneumonia, unspecified organism Status: Acute Assessment and Plan: * Patient presents with weakness after having cold and cough symptoms for 3 weeks. No benefit after 2 Z-packs. * CXR showing bibasilar infiltrates. No fevers or hypoxia. WBC 12K. * He was started on Rocephin and Doxycycline. * WBC normal now. BCx NGTD. MRSA screen negative. * Urine Ag negative. Sputum Cx growing MSSA and yeast. * He completed a 7 day course. Rocephin restarted for possible UTI but UCx negative so stopped. * Follow off abx (last dose of Rocephin was 12/29 at 1215) (5) Heart failure with mildly reduced ejection fraction: Code(s): I50.22 - Chronic systolic (congestive) heart failure Status: Acute Assessment and Plan: * Echo showing severely reduced systolic fxn with EF 25-30% with diastolic dysfunction, mild valve disease and moderate pulmonary HTN. BNP >30K. * CXR showing CMG, bibasilar infiltrates and small pleural effusions. * Entresto and finerenone on hold. Diuretics not listed on home med list. * Holding Entresto. * Monitor UOP, renal fxn, daily weights and fluid balance. (6) Atrial flutter with rapid ventricular response: Code(s): I48.92 - Unspecified atrial flutter Status: Acute Assessment and Plan: * New onset atrial fibrillation. On metoprolol. * On heparin drip for now. Change to Eliquis when able * HR poorly controlled. Advance metoprolol. * Monitor HR (7) Type 2 diabetes mellitus with hyperglycemia, with long-term current use of insulin: Code(s): E11.65 - Type 2 diabetes mellitus with hyperglycemia; Z79.4 - shelter (current) use of insulin Status: Acute Assessment and Plan: * A1c 7%. The patient's blood glucose was reviewed * Patient was on an insulin pump at home. Concern patient was unable to handle his pump here so this was held. * Glucose remains well controlled off the insulin pump despite his improved eating habit * Continue AccuCheks covering with sliding scale. Hypoglycemia protocol available as needed. * Continue to monitor (8) Chronic kidney disease, stage 4 (severe): Code(s): N18.4 - Chronic kidney disease, stage 4 (severe) Status: Acute Assessment and Plan: As above (9) Status post above-knee amputation of left lower extremity: Code(s): Z89.612 - Acquired absence of left leg above knee Status: Acute Assessment and Plan: * Patient with known PAD. Venous doppler RLE negative for DVT. * Arterial doppler RLE suggestive of a popliteal or tibioperoneal trunk stenosis. There is three-vessel blood flow into the right calf with single vessel blood flow into the right foot. * Continue Zetia and ASA. Resume Lipitor when able. Plan # Hypothyroidism: Review of Endocrine note from 11/12 showing he was to skip the Friday Synthroid dose. TSH is 46.4. Free T4 is low-normal at 0.96. Total T3 is 0.5. Patient is currently on 250 mcg daily except no meds on Friday. Suspect the skipped dose has resulted in the change in his thyroid panel. Will adjust to 250mcg daily except added 125mcg on Sundays. # Tobacco dependence: Patient was educated about the benefits of smoking cessation # urinary retention status post cystoscopy with passive dilation of mild bulbar narrowing. Complex Hernandez catheter placement with 16 Romansh coude on 12/20/2024. Maintain Hernandez catheter until improvement in volume status and mobility. # Low back pain - Lumbar MRI performed but no acute finding seen on limited imaging due to motion artifact. # meth abuse - Possible meth abuse to explain some of his mental status confusion prior to admission. Will discuss when patient more awake and alert. 64 y/o male with CKD with worsening urine output and serum BUN and creatinine are rising, patient developed agitation and was treated with Ativan and Haldol as well as receiving pain medication as needed however patient became confused and suspect most likely 2/2 sedating medications he had been receiving, these medications are on hold now patient is given Seroquel for sleep, patient is seen by his chemical tester LAMINATION OPERATOR-HD was started on 12/21 and has temporary cath, patient is seen by surgery service and will have tunnel catheter will be placed today. today patient is little more oriented and cooperative. will monitor. # DVT prophylaxis - Heparin # Code status - full Subjective Date/time seen: 01/04/25 15:31 Interval history: Patient refusing dialysis this morning and later agreed. Patient denies chest pain, palpitations, headache, dizziness, nausea, or vomiting. Spoke with sister Ruby and she stated that they wanted patient transferred to [facility] or she would not mind [place], she felt that doctors were not doing what they should. Ruby mentioned ex is the POA and will be coming up to the hospital. Patient when he returned from dialysis was wanting a ride home and stated he does not want to go to [facility]. Nurse reports that ex was good with care here. 64 y/o male with CKD with worsening urine output and serum BUN and creatinine are rising, patient developed agitation and was treated with Ativan and Haldol as well as receiving pain medication as needed however patient became confused and suspect most likely 2/2 sedating medications he had been receiving, these medications are on hold now patient is given Seroquel for sleep, patient is seen by his chemical tester LAMINATION OPERATOR-HD was started on 12/21 and has temporary cath, patient is seen by surgery service and will have tunnel catheter will be placed today. today patient is little more oriented and cooperative. will monitor. Review of Systems Review of Systems: 12 systems were reviewed and are negativ e except for as per HPI. All systems reviewed & are unremarkable except as noted in HPI and below ROS unobtainable: Yes unobtainable due to mental status Exam Narrative: Patient is comfortable, NAD HEENT: eyes are clear and none icteric LUNGS:CTA HEART: RR S1S2 ABD: BS+, Soft and nontender Lower extremities: no edema SKIN: nonjaundiced Neuro: grossly intact. Objective Data Vital Signs Vital Signs: Vital Signs - 24 hr 01/03/25 16:00 01/03/25 20:00 01/03/25 22:00 Temperature 36.2 C L Pulse Rate 116 H 121 H 122 H Respiratory Rate 20 Blood Pressure 107/78 Pulse Oximetry 100 Oxygen Delivery 01/03/25 23:01 01/04/25 00:00 01/04/25 04:00 Temperature Pulse Rate 121 H 122 H 86 Respiratory Rate Blood Pressure Pulse Oximetry Oxygen Delivery 01/04/25 05:57 01/04/25 08:00 01/04/25 09:47 Temperature 35.9 C L Pulse Rate 98 103 H Respiratory Rate 20 Blood Pressure 104/78 Pulse Oximetry 100 98 Oxygen Delivery Room Air 01/04/25 14:00 Temperature 35.6 C L Pulse Rate 103 H Respiratory Rate 22 H Blood Pressure 103/70 Pulse Oximetry 97 Oxygen Delivery Intake/Output Intake/Output: Intake & Output 01/01/25 01/02/25 01/03/25 01/04/25 23:59 23:59 23:59 23:59 Intake Total 1369.1 1284.5 940.0 250.0 Output Total 621 143 6949 250 Balance 844.1 834.5 -967.0 0 Meds/Results Medications: Active Medications Generic Name Dose Route Start Last Admin Trade Name Freq PRN Reason Stop Dose Admin Acetaminophen 650 mg 12/31/24 12:08 Acetaminophen 650 Mg Suppository RECTAL Q6H PRN Mild Pain (1-3) or Fever Aspirin 81 mg 12/20/24 08:00 01/04/25 09:16 Aspirin 81 Mg Chewable Tablet PO Not Given DAILY@0800 [facility] Calcium Carbonate 200 mg 12/18/24 22:39 Calcium Carbonate (Tums) 500 Mg (200 Mg Elemental) PO Q6H PRN Indigestion Dextrose 12.5 gm 12/17/24 22:39 Dextrose 50% 25 Gm/50 Ml Syringe IV PUSH PRN PRN Hypoglycemia Protocol Docusate Sodium 100 mg 12/23/24 21:00 01/04/25 09:18 Docusate Sodium 100 Mg Capsule PO Not Given Q12HR REGINA Ezetimibe 10 mg 12/18/24 09:00 01/04/25 09:18 Ezetimibe 10 Mg Tablet PO Not Given DAILY REGINA Glucagon 1 mg 12/17/24 22:39 Glucagon For Inj 1 Mg Vial IM PRN PRN Hypoglycemia Protocol Glucose 15 gm 12/17/24 22:39 Glucose Oral Gel 15 Gm Of Glucse In 37.5 Gm Tube PO PRN PRN Hypoglycemia Protocol Heparin Sodium (Porcine) 7,500 units 12/27/24 14:06 12/31/24 09:57 Heparin Sodium 5,000 Units/Ml Vial IV PUSH 7,500 units PRN PRN Administration aPTT less than 55 seconds Heparin Sodium (Porcine) 3,500 units 12/27/24 14:06 01/01/25 23:11 Heparin Sodium 5,000 Units/Ml Vial IV PUSH 3,500 units PRN PRN Administration aPTT 55 - 70 seconds Dextrose 1,000 mls @ 100 mls/hr 12/17/24 22:39 Dextrose 5% 1,000 Ml IVPB PRN PRN Hypoglycemia Protocol Albumin Human 50 mls @ 999 mls/hr 12/22/24 05:43 Albutein IVPB 01/21/25 05:42 Q10M PRN HYPOTENSION Heparin Sodium/Dextrose 25,000 units in 250 mls @ 19 mls/hr 12/27/24 14:10 01/04/25 11:22 Heparin Sodium/D5w 100 Units/Ml IV CONT Not Given .[id number] [facility] Protocol 1,900 UNITS/HR Insulin Aspart 2 - 5 units 12/29/24 12:00 01/04/25 11:46 Insulin Aspart (*Bkc) 100 Units/Ml SUB-Q Not Given TIDWM [facility] Protocol Insulin Aspart 2 - 5 units 12/29/24 21:00 01/03/25 21:44 Insulin Aspart (*Bkc) 100 Units/Ml SUB-Q 3 units HS REGINA Administration Protocol Levothyroxine Sodium 250 mcg 12/21/24 06:30 01/04/25 06:40 Levothyroxine Sodium 125 Mcg Tablet PO Not Given [id number]@0630 REGINA Levothyroxine Sodium 125 mcg 12/26/24 06:30 01/02/25 06:02 Levothyroxine Sodium 125 Mcg Tablet PO 125 mcg Mitchell@0630 REGINA Administration Metoprolol Tartrate 50 mg 01/02/25 21:00 01/04/25 09:47 Metoprolol Tartrate 50 Mg Tab PO 50 mg Q12HR REGINA Administration Multi-Ingred Cream/Lotion/Oil/Oint 1 applic 01/01/25 12:35 01/04/25 12:13 Eucerin Cream 120 Gm Jar TOPICAL 1 applic DAILY REGINA Administration Nicotine 1 patch 12/17/24 22:45 01/04/25 09:19 Nicotine (*Pbkc) 21 Mg Patch TRANSDERM Not Given DAILY REGINA Ondansetron HCl 4 mg 12/17/24 16:18 01/02/25 08:59 Ondansetron Inj 4 Mg/2 Ml Vial IV PUSH 4 mg Q4H PRN Administration Nausea Polyethylene Glycol 17 gm 01/03/25 09:00 01/04/25 09:19 Polyethylene Glycol 3350 17 Gm Powd.Pack PO Not Given QAM REGINA Quetiapine Fumarate 25 mg 12/31/24 21:00 01/03/25 23:01 Quetiapine Fumarate 25 Mg Tablet PO 25 mg HS REGINA Administration Sertraline HCl 100 mg 12/18/24 09:00 01/04/25 09:19 Sertraline Hcl 50 Mg Tablet PO Not Given DAILY REGINA Vitamin D 1,000 units 12/31/24 09:00 01/04/25 09:18 Cholecalciferol 1,000 Units Tablet PO Not Given DAILY REGINA Radiology Results: ITS Impressions Lumbar Spine X-Ray 12/17/24 15:44 IMPRESSION: Anterior loss of volume of L1 which is most likely chronic. MRI evaluation advised. Otherwise, No acute osseous abnormality lumbar spine. Degenerative disc disease at the level of L4-L5. Venous Doppler Study 12/18/24 13:13 IMPRESSION: 1. No deep venous thrombosis. Abdomen Ultrasound 12/18/24 13:18 IMPRESSION: 1. Cholelithiasis. No evidence of acute cholecystitis. 2. Mildly dilated common duct. Renal Ultrasound 12/18/24 13:21 IMPRESSION: 1. Normal kidney sizes. No hydronephrosis. Lumbar Spine MRI 12/18/24 15:23 IMPRESSION: Limited examination secondary to motion artifact. No abnormal signal intensity or contrast enhancement is identified within the vertebral body of L1 to suggest acute traumatic injury. Within the visualized intervertebral disc spaces, moderate degenerative disease is noted, as detailed above. Duplex Scan Lower Extremity Artery 12/18/24 21:35 IMPRESSION: Abnormal peak systolic velocity and waveform morphology suggesting a popliteal or tibioperoneal trunk stenosis. Three-vessel blood flow into the right calf with single vessel blood flow into the right foot (on the submitted images) MRCP 12/21/24 08:48 IMPRESSION: 1. Study terminated at patient request prior to obtaining the normal complement of sequences including the MRCP images and which along with some motion artifact on the obtained sequences moderately limits evaluation. 2. Anasarca with small left and moderate-sized right pleural effusions, small amount of ascites and extensive body wall, as enteric and retroperitoneal edema. 3. Normal-appearing gallbladder with no evident cholelithiasis and with no intra or extrahepatic biliary ductal dilation. Sensitivity for tiny gallstones which were suggested on prior ultrasound is limited by motion artifact. 4. Cardiomegaly. Liver Biopsy Ultrasound 12/22/24 10:51 IMPRESSION: 1. Successful Ultrasound-guided random liver biopsy. Renal Biopsy Ultrasound 12/23/24 10:32 IMPRESSION: 1. Ultrasound-guided random left kidney core needle biopsy. Head CT 12/25/24 17:06 IMPRESSION: No acute intracranial process. Chest X-Ray 01/03/25 06:59 Impression: Mild pulmonary edema pattern with probable element of left lower lobe atelectasis. Small left pleural effusion. Right IJ line. Labs Labs: Laboratory Results - last 24 hr 01/03/25 01/03/25 01/04/25 16:13 20:30 06:01 WBC 9.3 RBC 4.20 L Hgb 10.2 L Hct 37.4 L MCV 89.0 MCH 24.3 L MCHC 27.3 L RDW 18.8 H Plt Count 226 MPV 10.3 Immature Gran % (Auto) 0.4 Neut % (Auto) 55.1 Lymph % (Auto) 29.2 [place] % (Auto) 11.7 H Eos % (Auto) 2.6 Baso % (Auto) 1.0 Lymph # (Auto) 2.72 [place] # (Auto) 1.1 H Eos # (Auto) 0.2 Baso # (Auto) 0.1 Abs Immat Gran (auto) 0.04 H Absolute Neuts (auto) 5.2 Absolute Nucleated RBC 0.080 H Band Neutrophils % Not Reportable Nucleated RBC % 0.9 H Platelet Estimate Adequate Hypochromasia 1+ Poikilocytosis 1+ Anisocytosis 1+ Ovalocytes 1+ Aixa Cells 1+ Crenated Cell 1+ Acanthocytes (Spur) 1+ Schistocytes None seen APTT 93.6 H Sodium 135 L Potassium 4.3 Chloride 102 Carbon Dioxide 25 Anion Gap 8 BUN 32 H D Creatinine 2.77 H Estim Creat Clear Calc 34 Estimated GFR 23 L Glucose 127 H POC Capillary Glucose 106 H 258 H Calcium 7.7 L Phosphorus 4.2 Magnesium 2.1 Total Bilirubin 0.7 AST 26 ALT 64 H Alkaline Phosphatase 141 H Total Protein 5.0 L Albumin 2.6 L 01/04/25 01/04/25 07:34 12:02 WBC RBC Hgb Hct MCV MCH MCHC RDW Plt Count MPV Immature Gran % (Auto) Neut % (Auto) Lymph % (Auto) [place] % (Auto) Eos % (Auto) Baso % (Auto) Lymph # (Auto) [place] # (Auto) Eos # (Auto) Baso # (Auto) Abs Immat Gran (auto) Absolute Neuts (auto) Absolute Nucleated RBC Band Neutrophils % Nucleated RBC % Platelet Estimate Hypochromasia Poikilocytosis Anisocytosis Ovalocytes Aixa Cells Crenated Cell Acanthocytes (Spur) Schistocytes APTT Sodium Potassium Chloride Carbon Dioxide Anion Gap BUN Creatinine Estim Creat Clear Calc Estimated GFR Glucose POC Capillary Glucose 119 H 121 H Calcium Phosphorus Magnesium Total Bilirubin AST ALT Alkaline Phosphatase Total Protein Albumin Quality VTE Prophylaxis VTE prophylaxis: pharmacologic ordered
[2025-01-04 16:39] LABS: Glucose Point of Care 140 mg/dl (65-105)
[2025-01-04] MEDS: QUEtiapine FUMARATE 25 MG TABLET PO (20:16)
[2025-01-04] MEDS: DOCUSATE SODIUM 100 MG CAPSULE PO (20:16)
[2025-01-04] MEDS: NICOTINE (*PBKC) 21 MG PATCH 1 PATCH TRANSDERM (20:17)
[2025-01-04] MEDS: INSULIN ASPART (*BKC) 100 UNITS/ML SUB-Q (20:24)
[2025-01-05] VITALS (29 sets, daily range): BP systolic 96–124; BP diastolic 68–90; PULSE 91–122; RESP 16–24; TEMP 35.8–37.2; O2SAT 98–100
[2025-01-05 04:43] LABS: Glucose Point of Care 205 mg/dl (65-105)
[2025-01-05 06:07] LABS: Alanine Aminotransferase 62 U/L (6-50); Albumin Level 2.8 g/dL (3.5-5.1); Alkaline Phosphatase 141 U/L (38-126); Anion Gap 8 mmol/L (4-12); Aspartate Amino Transferase 30 U/L (17-59); Bilirubin,Total 0.9 mg/dL (0.2-1.3); Blood Urea Nitrogen 39 mg/dL (9-20); Calcium 7.9 mg/dL (8.4-10.2); Carbon Dioxide 25 mmol/L (22-30); Chloride 102 mmol/L (98-107); Estimated CRCL calculation 28 ml/min; Estimated Glomerular Filt Rate 19; Glucose 111 mg/dL (65-110); Potassium 4.4 mmol/L (3.4-5.0); Sodium 135 mmol/L (137-145)
[2025-01-05 08:01] LABS: Glucose Point of Care 110 mg/dl (65-105)
--- NOTE | 2025-01-05 08:40 | PCOTNOTE ---
Patient out of the room at dialysis this A.M. Will check back this P.M.
--- NOTE | 2025-01-05 09:46 | PC.NURSE ---
Patient to dialysis via bed at 8:45.
[2025-01-05] MEDS: HYDROcodone/acetaminophen (*CRX) 5-325 MG TABLET 1 TAB PO ×2 (09:57→21:26)
[2025-01-05 12:02] LABS: Glucose Point of Care 94 mg/dl (65-105)
[2025-01-05] MEDS: EPOETIN ALFA-EPBX 4,000 UNITS/ML VIAL 4000 UNITS IV PUSH (12:22)
--- NOTE | 2025-01-05 12:30 | P.PNNP_ITS ---
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/HD on 12/21/24 * s/p RENAL BIOPSY (on 12/22) with findings noted: * diabetic nephropathy/glomerulosclerosis (class IV) * significant interstitial fibrosis/tubular atrophy noted as well * fluctuating urine output noted * however, BUN + creatinine continue to rise without dialytic support * HD today - will continue // schedule for now * Surgery following for tunneled HD catheter placement (2) Stage 3b chronic kidney disease: Code(s): N18.32 - Chronic kidney disease, stage 3b Status: Chronic Assessment and Plan: * baseline creatinine runs around 1.7 - 2.3mg/dl * secondary to diabetes (as noted by renal biopsy) and hypertension (3) Pneumonia: Code(s): J18.9 - Pneumonia, unspecified organism Status: Acute Assessment and Plan: * admission CXR with bibasilar infiltrates * completed course of antibiotics * respiratory status stable (4) Heart failure with mildly reduced ejection fraction: Code(s): I50.22 - Chronic systolic (congestive) heart failure Status: Acute Assessment and Plan: * known history * repeat Echo (12/18) noted: * severely reduced systolic function with EF 25-30% * diastolic dysfunction * mild valvular disease * moderate pulmonary hypertension * CXR with cardiomegaly, bibasilar infiltrates and small pleural effusions * Entresto and diuretics on hold given #1 * removing fluid with dialysis * not opposed to re-start entresto if necessary * Cardiology following (5) Encephalopathy: Code(s): G93.40 - Encephalopathy, unspecified Status: Acute Assessment and Plan: * doing better * doubt uremia playing a role given improvement in BUN * testing to date noted: * ammonia level is okay * B12 and folate are okay * WBC okay and no fevers so unlikely to be related to infection * aodium good * magnesium and calcium stable * CT of brain normal * ABGs reasonable * Neurology recommendations noted (6) Atrial flutter with rapid ventricular response: Code(s): I48.92 - Unspecified atrial flutter Status: Acute Assessment and Plan: * rate control strategy * on heparin gtt for anticoagulation * eventual plan to transition to oral anticoagulation (7) Transaminitis: Code(s): R74.01 - Elevation of levels of liver transaminase levels Status: Resolved Assessment and Plan: * resolving if not resolved * normal earlier in November 2024 * hepatitis panel negative * abd US showing cholelithiasis and mildly dilated CBD; liver is normal in appearance * holding statin * liver biopsy (on 12/21) noted: * congestive hepatopathy and congestive hepatic fibrosis (8) Anemia: Code(s): D64.9 - Anemia, unspecified Status: Acute Assessment and Plan: * related to ELEANOR, CKD, and acute illness * Epogen with HD as needed * follow trend of H/H (9) Peripheral vascular disease: Code(s): I73.9 - Peripheral vascular disease, unspecified Status: Acute Assessment and Plan: * known history * on zetia but statin on hold given previous elevated LFTs * complicated by ongoing smoking * arterial dopplers noted (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 L Subjective Date/time seen: 01/05/25 12:30 Interval history: Follow-up for acute kidney injury/acute renal failure on chronic kidney disease. Tolerating dialysis treatment at the time of my visit (seen on HD at 12:20PM); unable to get tunneled HD catheter yesterday so re-scheduled for today this afternoon; no apparent distress voiced at time; no events overnight or earlier this morning; requesting removal of sullivan catheter. Exam 2 Narrative: General: elderly male in NAD Heart: tachycardic; normal S1 and S2; no rub Lungs: clear anteriorly; decreased at bases Abdomen: obese but soft, nontender, nondistended, positive bowel sounds Extremities: no cyanosis or clubbing; trace - 1+ edema in RLE; s/p left AKA Skin: warm and intact Objective Data Vital Signs Vital Signs: Vital Signs Temp Pulse Resp BP Pulse Ox O2 Del Method 01/05/25 12:15 115 H 124/85 01/05/25 12:00 111 H 01/05/25 12:00 122 H 121/89 01/05/25 11:45 107 H 121/84 01/05/25 11:30 115 H 109/83 01/05/25 11:15 110 H 119/81 01/05/25 11:12 102 H 109/82 01/05/25 10:57 111 H 113/83 01/05/25 10:45 110 H 115/82 01/05/25 10:30 104 H 113/83 01/05/25 10:15 112 H 117/83 01/05/25 10:00 104 H 110/82 01/05/25 09:45 104 H 106/77 01/05/25 09:30 111 H 107/78 01/05/25 09:17 114 H 110/80 01/05/25 08:55 99 F 113 H 18 107/79 99 01/05/25 08:00 97 01/05/25 05:34 96.5 F L 99 24 H 96/68 L 100 01/05/25 04:00 95 01/04/25 21:06 97 F L 106 H 20 108/79 93 01/04/25 20:16 102 H 01/04/25 20:00 102 H 01/04/25 16:00 107 H Intake/Output Intake/Output: Intake & Output 01/02/25 01/03/25 01/04/25 01/05/25 23:59 23:59 23:59 23:59 Intake Total 1284.5 940.0 976.0 521.6 Output Total 450 7507 815 7873 Balance 834.5 -967.0 626 -723.4 Meds/Results Medications: Active Medications Generic Name Dose Route Start Last Admin Trade Name Freq PRN Reason Stop Dose Admin Acetaminophen 650 mg 12/31/24 12:08 Acetaminophen 650 Mg Suppository RECTAL Q6H PRN Mild Pain (1-3) or Fever Hydrocodone Bitart/Acetaminophen 1 tab 01/05/25 09:51 01/05/25 09:57 Hydrocodone/Acetaminophen (*Crx) 5-325 Mg Tablet PO 1 tab Q6H PRN Administration Pain Rated 4-6 Aspirin 81 mg 12/20/24 08:00 01/05/25 13:25 Aspirin 81 Mg Chewable Tablet PO Not Given DAILY@0800 REGINA Calcium Carbonate 200 mg 12/18/24 22:39 Calcium Carbonate (Tums) 500 Mg (200 Mg Elemental) PO Q6H PRN Indigestion Dextrose 12.5 gm 12/17/24 22:39 Dextrose 50% 25 Gm/50 Ml Syringe IV PUSH PRN PRN Hypoglycemia Protocol Docusate Sodium 100 mg 12/23/24 21:00 01/05/25 13:28 Docusate Sodium 100 Mg Capsule PO Not Given Q12HR REGINA Ezetimibe 10 mg 12/18/24 09:00 01/05/25 13:28 Ezetimibe 10 Mg Tablet PO Not Given DAILY REGINA Epoetin Oscar-epbx 4,000 units 01/05/25 18:20 01/05/25 12:22 Epoetin Oscar-Epbx 4,000 Units/Ml Vial IV PUSH 01/05/25 18:21 4,000 units ONCE ONE Administration Glucagon 1 mg 12/17/24 22:39 Glucagon For Inj 1 Mg Vial IM PRN PRN Hypoglycemia Protocol Glucose 15 gm 12/17/24 22:39 Glucose Oral Gel 15 Gm Of Glucse In 37.5 Gm Tube PO PRN PRN Hypoglycemia Protocol Heparin Sodium (Porcine) 7,500 units 12/27/24 14:06 12/31/24 09:57 Heparin Sodium 5,000 Units/Ml Vial IV PUSH 7,500 units PRN PRN Administration aPTT less than 55 seconds Heparin Sodium (Porcine) 3,500 units 12/27/24 14:06 01/01/25 23:11 Heparin Sodium 5,000 Units/Ml Vial IV PUSH 3,500 units PRN PRN Administration aPTT 55 - 70 seconds Dextrose 1,000 mls @ 100 mls/hr 12/17/24 22:39 Dextrose 5% 1,000 Ml IVPB PRN PRN Hypoglycemia Protocol Albumin Human 50 mls @ 999 mls/hr 12/22/24 05:43 Albutein IVPB 01/21/25 05:42 Q10M PRN HYPOTENSION Heparin Sodium/Dextrose 25,000 units in 250 mls @ 19 mls/hr 12/27/24 14:10 01/05/25 05:59 Heparin Sodium/D5w 100 Units/Ml IV CONT 1,900 units/hr .[id number] [facility] 19 mls/hr Titration Protocol 1,900 UNITS/HR Insulin Aspart 2 - 5 units 12/29/24 12:00 01/05/25 13:27 Insulin Aspart (*Bkc) 100 Units/Ml SUB-Q Not Given TIDWM [facility] Protocol Insulin Aspart 2 - 5 units 12/29/24 21:00 01/04/25 20:24 Insulin Aspart (*Bkc) 100 Units/Ml SUB-Q 2 units HS REGINA Administration Protocol Levothyroxine Sodium 250 mcg 12/21/24 06:30 01/05/25 06:55 Levothyroxine Sodium 125 Mcg Tablet PO Not Given [id number]@0630 REGINA Levothyroxine Sodium 125 mcg 12/26/24 06:30 01/02/25 06:02 Levothyroxine Sodium 125 Mcg Tablet PO 125 mcg Mitchell@0630 REGINA Administration Metoprolol Tartrate 50 mg 01/02/25 21:00 01/05/25 13:30 Metoprolol Tartrate 50 Mg Tab PO 50 mg Q12HR [facility] Administration Multi-Ingred Cream/Lotion/Oil/Oint 1 applic 01/01/25 12:35 01/05/25 13:30 Eucerin Cream 120 Gm Jar TOPICAL 1 applic DAILY [facility] Administration Nicotine 1 patch 01/04/25 21:00 01/04/25 20:17 Nicotine (*Pbkc) 21 Mg Patch TRANSDERM 1 patch HS [facility] Administration Ondansetron HCl 4 mg 12/17/24 16:18 01/02/25 08:59 Ondansetron Inj 4 Mg/2 Ml Vial IV PUSH 4 mg Q4H PRN Administration Nausea Polyethylene Glycol 17 gm 01/03/25 09:00 01/05/25 13:26 Polyethylene Glycol 3350 17 Gm Powd.Pack PO Not Given QAM [facility] Quetiapine Fumarate 25 mg 12/31/24 21:00 01/04/25 20:16 Quetiapine Fumarate 25 Mg Tablet PO 25 mg HS [facility] Administration Sertraline HCl 100 mg 12/18/24 09:00 01/05/25 13:30 Sertraline Hcl 50 Mg Tablet PO 100 mg DAILY REGINA Administration Tamsulosin HCl 0.4 mg 01/05/25 21:00 Tamsulosin Hcl 0.4 Mg Capsule PO HS [facility] Vitamin D 1,000 units 12/31/24 09:00 01/05/25 13:28 Cholecalciferol 1,000 Units Tablet PO Not Given DAILY REGINA Radiology Results: ITS Impressions Lumbar Spine X-Ray 12/17/24 15:44 IMPRESSION: Anterior loss of volume of L1 which is most likely chronic. MRI evaluation advised. Otherwise, No acute osseous abnormality lumbar spine. Degenerative disc disease at the level of L4-L5. Venous Doppler Study 12/18/24 13:13 IMPRESSION: 1. No deep venous thrombosis. Abdomen Ultrasound 12/18/24 13:18 IMPRESSION: 1. Cholelithiasis. No evidence of acute cholecystitis. 2. Mildly dilated common duct. Renal Ultrasound 12/18/24 13:21 IMPRESSION: 1. Normal kidney sizes. No hydronephrosis. Lumbar Spine MRI 12/18/24 15:23 IMPRESSION: Limited examination secondary to motion artifact. No abnormal signal intensity or contrast enhancement is identified within the vertebral body of L1 to suggest acute traumatic injury. Within the visualized intervertebral disc spaces, moderate degenerative disease is noted, as detailed above. Duplex Scan Lower Extremity Artery 12/18/24 21:35 IMPRESSION: Abnormal peak systolic velocity and waveform morphology suggesting a popliteal or tibioperoneal trunk stenosis. Three-vessel blood flow into the right calf with single vessel blood flow into the right foot (on the submitted images) MRCP 12/21/24 08:48 IMPRESSION: 1. Study terminated at patient request prior to obtaining the normal complement of sequences including the MRCP images and which along with some motion artifact on the obtained sequences moderately limits evaluation. 2. Anasarca with small left and moderate-sized right pleural effusions, small amount of ascites and extensive body wall, as enteric and retroperitoneal edema. 3. Normal-appearing gallbladder with no evident cholelithiasis and with no intra or extrahepatic biliary ductal dilation. Sensitivity for tiny gallstones which were suggested on prior ultrasound is limited by motion artifact. 4. Cardiomegaly. Liver Biopsy Ultrasound 12/22/24 10:51 IMPRESSION: 1. Successful Ultrasound-guided random liver biopsy. Renal Biopsy Ultrasound 12/23/24 10:32 IMPRESSION: 1. Ultrasound-guided random left kidney core needle biopsy. Head CT 12/25/24 17:06 IMPRESSION: No acute intracranial process. Chest X-Ray 01/03/25 06:59 Impression: Mild pulmonary edema pattern with probable element of left lower lobe atelectasis. Small left pleural effusion. Right IJ line. Scrotum Ultrasound 01/05/25 15:10 IMPRESSION: Significant soft tissue swelling, without inherent testicular abnormality. Labs Labs: Laboratory Tests 01/04/25 06:01 01/05/25 05:32 Calcium 7.9 L Total Bilirubin 0.9 AST 30 ALT 62 H Alkaline Phosphatase 141 H Total Protein 5.0 L Albumin 2.8 L
--- NOTE | 2025-01-05 12:57 | PC.NURSE ---
Pt. back from dialysis at 12:50.
[2025-01-05] MEDS: SERTRALINE HCL 50 MG TABLET 100 MG PO (13:30)
[2025-01-05] MEDS: METOPROLOL TARTRATE 50 MG TAB PO (13:30)
[2025-01-05] MEDS: EUCERIN CREAM 120 GM JAR 1 APPLIC TOPICAL (13:30)
--- NOTE | 2025-01-05 14:20 | PCOTNOTE ---
Attempted to see Patient at this time. Patient is very emotional, declines to participate, states I'm going to surgery in a little bit .
--- NOTE | 2025-01-05 16:03 | P.CONCA_ITS ---
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 He currently no longer feels weak and denies any chest discomfort shortness of breath. He currently has no complaints. going for surgery today which was canceled due to fast heart rates. Workup: TTE: LVEF severely depressed 25-30%, mild MR, mild TR, mild FL, moderate pulmonary hypertension with PASP of 45 mm Hg, small pericardial effusion. [facility] Past Medical History Medical History (Updated 01/04/25 @ 11:22 by Aime Kebede MD) Metabolic encephalopathy Tobacco dependence Diastolic dysfunction Heart failure with mildly reduced ejection fraction Albuminuria Diabetic peripheral neuropathy Insulin dependent type 2 diabetes mellitus Stage 3b chronic kidney disease Dyslipidemia Peripheral vascular disease Hypothyroidism Essential hypertension Chronic, continuous use of opioids Chronic pain of both shoulders Surgical History Surgical History History of left above knee amputation History of amputation of lesser toe of right foot Family History Family History Father Family history of diabetes mellitus in first degree relative Hypertension Family history of coronary artery disease Mother Family history of diabetes mellitus in first degree relative Sibling Family history of diabetes mellitus in first degree relative Other Diabetes mellitus Family history of cardiovascular disease Social History Social History Social History: Surrogate medical decision maker: Cristal Frye, friend. Code status: Full code. Smoking packs per day: 1.5 Smoking cigarettes per day: 30.0 Years smoked: 50 Smoking pack-years: 75.00 Smoking status: Current every day smoker Tobacco type: cigarettes Second hand tobacco smoke exposure: No Alcohol intake: former Substance use: current Substance use type: marijuana Do You Feel Safe in your Home?: Yes Lack of Transportation: No Lack of Food: Never True Current Housing: I Have Housing Concerned About Future Housing: No Difficulty Paying Gas/Electric Bills: No Difficulty Paying for Meds: No Currently Unemployed: No Education: High School Diploma/GED Difficulty w/ Childcare or Family Care: No Living arrangements: with family Additional living arrangements comments: girlfriend Occupation/Education: other Spiritual care concerns: No Meds Home Medications and Allergies Home Medications ?Medication ?Instructions ?Recorded ?Confirmed ?Type hydrocodone 5 mg-acetaminophen 325 1 tablet PO Q8H PRN pain #60 tabs 04/27/20 12/17/24 Rx mg tablet glucagon 3 mg/actuation nasal 3 mg intranasal ONCE #1 ea 08/06/23 12/17/24 Rx spray (Baqsimi) glucose 4 gram chewable tablet 16 g (4 x 4 gram) PO Q15M PRN 08/06/23 12/17/24 Rx hypoglycemia #300 tabs sertraline 100 mg tablet 100 mg PO DAILY 02/26/24 12/17/24 History metoprolol succinate 50 mg 50 mg PO DAILY 04/01/24 12/17/24 History tablet,extended release 24 hr sacubitril 24 mg-valsartan 26 mg 1 tablet PO BID 04/20/24 12/17/24 History tablet (Entresto) finerenone 10 mg tablet (Kerendia) 10 mg PO DAILY #30 tabs 04/23/24 12/17/24 Rx atorvastatin 80 mg tablet See Rx Instructions .Route 05/14/24 12/17/24 Rx .COMPLEX #90 tabs ezetimibe 10 mg tablet 10 mg PO DAILY #90 tabs 08/05/24 12/17/24 Rx levothyroxine 125 mcg tablet See Rx Instructions .Route 10/08/24 12/17/24 Rx .COMPLEX #180 tabs insulin lispro 100 unit/mL 1 sliding scale dose subcut 10/26/24 12/17/24 Rx subcutaneous solution (Humalog USEASDIRECTD insulin pump #100 mL U-100 Insulin) blood-glucose sensor (Slidely G7 #9 ea 11/02/24 12/17/24 Rx Sensor device) Allergies Allergy/AdvReac Type Severity Reaction Status Date / Time vancomycin Allergy Severe Anaphylactic Verified 12/18/24 02:25 Shock Vital Signs Vital Signs - 24 hr 01/04/25 20:00 01/04/25 20:16 01/04/25 21:06 Temperature 36.1 C L Pulse Rate 102 H 102 H 106 H Respiratory Rate 20 Blood Pressure 108/79 Pulse Oximetry 93 Oxygen Delivery 01/05/25 04:00 01/05/25 05:34 01/05/25 08:00 Temperature 35.8 C L Pulse Rate 95 99 97 Respiratory Rate 24 H Blood Pressure 96/68 L Pulse Oximetry 100 Oxygen Delivery 01/05/25 08:55 01/05/25 09:17 01/05/25 09:30 Temperature 37.2 C Pulse Rate 113 H 114 H 111 H Respiratory Rate 18 Blood Pressure 107/79 110/80 107/78 Pulse Oximetry 99 Oxygen Delivery 01/05/25 09:45 01/05/25 10:00 01/05/25 10:15 Temperature Pulse Rate 104 H 104 H 112 H Respiratory Rate Blood Pressure 106/77 110/82 117/83 Pulse Oximetry Oxygen Delivery 01/05/25 10:30 01/05/25 10:45 01/05/25 10:57 Temperature Pulse Rate 104 H 110 H 111 H Respiratory Rate Blood Pressure 113/83 115/82 113/83 Pulse Oximetry Oxygen Delivery 01/05/25 11:12 01/05/25 11:15 01/05/25 11:30 Temperature Pulse Rate 102 H 110 H 115 H Respiratory Rate Blood Pressure 109/82 119/81 109/83 Pulse Oximetry Oxygen Delivery 01/05/25 11:45 01/05/25 12:00 01/05/25 12:00 Temperature Pulse Rate 107 H 122 H 111 H Respiratory Rate Blood Pressure 121/84 121/89 Pulse Oximetry Oxygen Delivery 01/05/25 12:15 01/05/25 12:32 01/05/25 12:40 Temperature 36.8 C Pulse Rate 115 H 114 H 111 H Respiratory Rate 16 Blood Pressure 124/85 116/84 119/87 Pulse Oximetry 98 Oxygen Delivery 01/05/25 12:57 01/05/25 13:30 01/05/25 14:00 Temperature 36.4 C Pulse Rate 122 H 109 H Respiratory Rate 18 Blood Pressure 114/89 Pulse Oximetry 98 99 Oxygen Delivery Room Air Exam 2 Narrative: General: Alert oriented x3, no acute distress Neck: Supple, no JVD Chest: Bilaterally clear to auscultation, no rales or rhonchi Cardiac: S1, S2 +, regular rate, regular rhythm, no murmurs or rubs Extremities: No pedal edema, no skin rash Neurologic: Alert and oriented x3, no focal neurological deficits Results Labs and Meds 01/04/25 06:01 01/05/25 05:32 Lab results: Cardiac Enzymes 01/05/25 Range/Units 05:32 AST 30 (17-59) U/L Comprehensive Metabolic Panel 01/05/25 Range/Units 05:32 Sodium 135 L (137-145) mmol/L Potassium 4.4 (3.4-5.0) mmol/L Chloride 102 (98-107) mmol/L Carbon Dioxide 25 (22-30) mmol/L BUN 39 H (9-20) mg/dL Creatinine 3.24 H (0.7-1.3) mg/dL Glucose 111 H (65-110) mg/dL Calcium 7.9 L (8.4-10.2) mg/dL AST 30 (17-59) U/L ALT 62 H (6-50) U/L Alkaline Phosphatase 141 H (38-126) U/L Total Protein 5.0 L (6.3-8.2) g/dL Albumin 2.8 L (3.5-5.1) g/dL Intake and Output 01/05/25 01/05/25 01/05/25 07:59 15:59 23:59 Intake Total 521.6 Output Total 100 1145 Balance 421.6 -1145 Intake: IV 121.6 Heparin Sod/D5w 100 Units/ml 25 121.6 ,000 units In 250 ml @ 1,900 UNITS/HR 19 mls/hr IV CONT . [id number] [facility] Rx#:[id number] Oral 400 Output: Catheter Urine 100 Urethral Catheter 100 Net UF Removed 1145 Patient Weight 01/05/25 23:59 Weight 111.8 kg
--- NOTE | 2025-01-05 16:11 | P.PNIM_ITS ---
Progress Note: A&P Assessment and Plan (1) Altered mental status: Code(s): R41.82 - Altered mental status, unspecified Status: Acute Assessment and Plan: * Patient has developed confused since 12/25/2024. He was receiving ativan and haldol prn for agitation * Ammonia negative * ABG unremarkable. B12 normal. TSH as mentioned below. Vit D <12.8 * CT head unremarkable. CXR showing small left and small-mod right pleural effusion with associated atelectasis and/or PNA * UA noted so started empirically on ceftriaxone * BCx (12/25) NGTD. UCx 12/25 negative so Rocephin stopped. * EEG 12/28 - abnormal record due to the absence of a normal background rhythm but without evidence of paroxysmal activity * Stopped all of his sedating mediations and Seroquel added * Mental status better. Continue to hold all sedating medications. Continue Seroquel at night. * Increase activity and try to keep awake most of the day (2) Abnormal transaminases: Code(s): R74.8 - Abnormal levels of other serum enzymes Status: Acute Assessment and Plan: * On admission, LFTs were mildly elevated. Hepatitis panel negative. Abd US showing cholelithiasis and mildly dilated CBD. Liver was normal in appearance. Lipitor held. Repeat levels on 12/20 much worse with AST 1539, ALT 1066, AP 479, normal bili. Lactic acid 1.1. Acet level <10. [place] due to congestion from heart failure * Consider autoimmune with + * IV fluids stopped. GI consulted and appreciate their input. * Patient was able to complete some of the MRCP. This showed anasarca, small left and moderate size right pleural effusion, small amount of ascites, extensive body edema and cardiomegaly. He had a normal appearing gallbladder with no evidence of cholelithiasis no intra or extrahepatic biliary ductal dilatation. Sensitivity was limited. * Status post liver biopsy 12/22/2024: congestive hepatopathy and congestive h epatic fibrosis score 1. * LFTs improving. [place] related to hepatic congestion. Follow. (3) Acute kidney injury: Code(s): N17.9 - Acute kidney failure, unspecified Status: Acute Assessment and Plan: * Patient presents with weakness and may have had underlying PNA. * Cr on admission 4.3. Baseline Cr 2.1-2.9 range. He was started on IV fluids. * Urine eos negative. Eve 42. Total CK 371. Urine prot/Cr 4.7gm consistent with nephrotic syndrome. * Complement normal. Hx of + 1:640. Renal US normal. * Nephrology consulted and appreciate their input. Cryoglobulin negative. * Creatinine was trending up; HD catheter placement 12/22/2024 and was started on hemodialysis. * Renal biopsy 12/23/2024 with advanced diabetic glomerulosclerosis class 4. 50-60% tubular atrophy and interstitial fibrosis. * Last dialysis today 01/03/2025 * UOP poor. Cr rising. * Appreciate nephrology input. Discussed with nephrology. * Tunneled cath being planned. (4) Pneumonia: Code(s): J18.9 - Pneumonia, unspecified organism Status: Acute Assessment and Plan: * Patient presents with weakness after having cold and cough symptoms for 3 weeks. No benefit after 2 Z-packs. * CXR showing bibasilar infiltrates. No fevers or hypoxia. WBC 12K. * He was started on Rocephin and Doxycycline. * WBC normal now. BCx NGTD. MRSA screen negative. * Urine Ag negative. Sputum Cx growing MSSA and yeast. * He completed a 7 day course. Rocephin restarted for possible UTI but UCx negative so stopped. * Follow off abx (last dose of Rocephin was 12/29 at 1215) (5) Heart failure with mildly reduced ejection fraction: Code(s): I50.22 - Chronic systolic (congestive) heart failure Status: Acute Assessment and Plan: * Echo showing severely reduced systolic fxn with EF 25-30% with diastolic dysfunction, mild valve disease and moderate pulmonary HTN. BNP >30K. * CXR showing CMG, bibasilar infiltrates and small pleural effusions. * Entresto and finerenone on hold. Diuretics not listed on home med list. * Holding Entresto. * Monitor UOP, renal fxn, daily weights and fluid balance. (6) Atrial flutter with rapid ventricular response: Code(s): I48.92 - Unspecified atrial flutter Status: Acute Assessment and Plan: * New onset atrial fibrillation. On metoprolol. * On heparin drip for now. Change to Eliquis when able * HR poorly controlled. Advance metoprolol. * Monitor HR (7) Type 2 diabetes mellitus with hyperglycemia, with long-term current use of insulin: Code(s): E11.65 - Type 2 diabetes mellitus with hyperglycemia; Z79.4 - halfway (current) use of insulin Status: Acute Assessment and Plan: * A1c 7%. The patient's blood glucose was reviewed * Patient was on an insulin pump at home. Concern patient was unable to handle his pump here so this was held. * Glucose remains well controlled off the insulin pump despite his improved eating habit * Continue AccuCheks covering with sliding scale. Hypoglycemia protocol available as needed. * Continue to monitor (8) Chronic kidney disease, stage 4 (severe): Code(s): N18.4 - Chronic kidney disease, stage 4 (severe) Status: Acute Assessment and Plan: As above (9) Status post above-knee amputation of left lower extremity: Code(s): Z89.612 - Acquired absence of left leg above knee Status: Acute Assessment and Plan: * Patient with known PAD. Venous doppler RLE negative for DVT. * Arterial doppler RLE suggestive of a popliteal or tibioperoneal trunk stenosis. There is three-vessel blood flow into the right calf with single vessel blood flow into the right foot. * Continue Zetia and ASA. Resume Lipitor when able. Plan # Hypothyroidism: Review of Endocrine note from 11/12 showing he was to skip the Friday Synthroid dose. TSH is 46.4. Free T4 is low-normal at 0.96. Total T3 is 0.5. Patient is currently on 250 mcg daily except no meds on Friday. Suspect the skipped dose has resulted in the change in his thyroid panel. Will adjust to 250mcg daily except added 125mcg on Sundays. # Tobacco dependence: Patient was educated about the benefits of smoking cessation # urinary retention status post cystoscopy with passive dilation of mild bulbar narrowing. Complex Hernandez catheter placement with 16 [place] coude on 12/20/2024. Maintain Hernandez catheter until improvement in volume status and mobility. # Low back pain - Lumbar MRI performed but no acute finding seen on limited imaging due to motion artifact. # meth abuse - Possible meth abuse to explain some of his mental status confusion prior to admission. Will discuss when patient more awake and alert. 64 y/o male with CKD with worsening urine output and serum BUN and creatinine are rising, patient developed agitation and was treated with Ativan and Haldol as well as receiving pain medication as needed however patient became confused and suspect most likely 2/2 sedating medications he had been receiving, these medications are on hold now patient is given Seroquel for sleep, patient is seen by his manager of project management [employer] was started on 12/21 and has temporary cath, patient is seen by surgery service and was planned to have tunnel catheter today however it is postponed until tomorrow, today patient is little more oriented and cooperative. will monitor. patient also developed new onset A.Fib with RVR seen by stone derrickman and rigger started on metoprolol now rate is under control and on being anticoagulated with heparin due to pending surgery, will monitor. # DVT prophylaxis - Heparin # Code status - full Subjective Date/time seen: 01/05/25 16:11 Interval history: Patient refusing dialysis this morning and later agreed. Patient denies chest pa in, palpitations, headache, dizziness, nausea, or vomiting. Spoke with sister Ruby and she stated that they wanted patient transferred to [facility] or she would not mind [place], she felt that doctors were not doing what they should. Ruby mentioned ex is the POA and will be coming up to the hospital. Patient when he returned from dialysis was wanting a ride home and stated he does not want to go to [facility]. Nurse reports that ex was good with care here. 64 y/o male with CKD with worsening urine output and serum BUN and creatinine are rising, patient developed agitation and was treated with Ativan and Haldol as well as receiving pain medication as needed however patient became confused and suspect most likely 2/2 sedating medications he had been receiving, these medications are on hold now patient is given Seroquel for sleep, patient is seen by his manager of project management [employer] EXECUTIVE-HD was started on 12/21 and has temporary cath, patient is seen by surgery service and was planned to have tunnel catheter today however it is postponed until tomorrow, today patient is little more oriented and cooperative. will monitor. patient also developed new onset A.Fib with RVR seen by stone derrickman and rigger started on metoprolol now rate is under control and on being anticoagulated with heparin due to pending surgery, will monitor. Review of Systems Review of Systems: ROS unobtainable: Yes unobtainable due to mental status Exam Narrative: Patient is comfortable, NAD HEENT: eyes are clear and none icteric LUNGS:CTA HEART: RR S1S2 ABD: BS+, Soft and nontender Lower extremities: no edema SKIN: nonjaundiced Neuro: grossly intact. Objective Data Vital Signs Vital Signs: Vital Signs - 24 hr 01/04/25 20:00 01/04/25 20:16 01/04/25 21:06 Temperature 36.1 C L Pulse Rate 102 H 102 H 106 H Respiratory Rate 20 Blood Pressure 108/79 Pulse Oximetry 93 Oxygen Delivery 01/05/25 04:00 01/05/25 05:34 01/05/25 08:00 Temperature 35.8 C L Pulse Rate 95 99 97 Respiratory Rate 24 H Blood Pressure 96/68 L Pulse Oximetry 100 Oxygen Delivery 01/05/25 08:55 01/05/25 09:17 01/05/25 09:30 Temperature 37.2 C Pulse Rate 113 H 114 H 111 H Respiratory Rate 18 Blood Pressure 107/79 110/80 107/78 Pulse Oximetry 99 Oxygen Delivery 01/05/25 09:45 01/05/25 10:00 01/05/25 10:15 Temperature Pulse Rate 104 H 104 H 112 H Respiratory Rate Blood Pressure 106/77 110/82 117/83 Pulse Oximetry Oxygen Delivery 01/05/25 10:30 01/05/25 10:45 01/05/25 10:57 Temperature Pulse Rate 104 H 110 H 111 H Respiratory Rate Blood Pressure 113/83 115/82 113/83 Pulse Oximetry Oxygen Delivery 01/05/25 11:12 01/05/25 11:15 01/05/25 11:30 Temperature Pulse Rate 102 H 110 H 115 H Respiratory Rate Blood Pressure 109/82 119/81 109/83 Pulse Oximetry Oxygen Delivery 01/05/25 11:45 01/05/25 12:00 01/05/25 12:00 Temperature Pulse Rate 107 H 122 H 111 H Respiratory Rate Blood Pressure 121/84 121/89 Pulse Oximetry Oxygen Delivery 01/05/25 12:15 01/05/25 12:32 01/05/25 12:40 Temperature 36.8 C Pulse Rate 115 H 114 H 111 H Respiratory Rate 16 Blood Pressure 124/85 116/84 119/87 Pulse Oximetry 98 Oxygen Delivery 01/05/25 12:57 01/05/25 13:30 01/05/25 14:00 Temperature 36.4 C Pulse Rate 122 H 109 H Respiratory Rate 18 Blood Pressure 114/89 Pulse Oximetry 98 99 Oxygen Delivery Room Air Intake/Output Intake/Output: Intake & Output 01/02/25 01/03/25 01/04/25 01/05/25 23:59 23:59 23:59 23:59 Intake Total 1284.5 940.0 976.0 521.6 Output Total 450 5413 961 0930 Balance 834.5 -967.0 626 -723.4 Meds/Results Medications: Active Medications Generic Name Dose Route Start Last Admin Trade Name Freq PRN Reason Stop Dose Admin Acetaminophen 650 mg 12/31/24 12:08 Acetaminophen 650 Mg Suppository RECTAL Q6H PRN Mild Pain (1-3) or Fever Hydrocodone Bitart/Acetaminophen 1 tab 01/05/25 09:51 01/05/25 09:57 Hydrocodone/Acetaminophen (*Crx) 5-325 Mg Tablet PO 1 tab Q6H PRN Administration Pain Rated 4-6 Aspirin 81 mg 12/20/24 08:00 01/05/25 13:25 Aspirin 81 Mg Chewable Tablet PO Not Given DAILY@0800 REGINA Calcium Carbonate 200 mg 12/18/24 22:39 Calcium Carbonate (Tums) 500 Mg (200 Mg Elemental) PO Q6H PRN Indigestion Dextrose 12.5 gm 12/17/24 22:39 Dextrose 50% 25 Gm/50 Ml Syringe IV PUSH PRN PRN Hypoglycemia Protocol Docusate Sodium 100 mg 12/23/24 21:00 01/05/25 13:28 Docusate Sodium 100 Mg Capsule PO Not Given Q12HR REGINA Ezetimibe 10 mg 12/18/24 09:00 01/05/25 13:28 Ezetimibe 10 Mg Tablet PO Not Given DAILY REGINA Epoetin Oscar-epbx 4,000 units 01/05/25 18:20 01/05/25 12:22 Epoetin Oscar-Epbx 4,000 Units/Ml Vial IV PUSH 01/05/25 18:21 4,000 units ONCE ONE Administration Glucagon 1 mg 12/17/24 22:39 Glucagon For Inj 1 Mg Vial IM PRN PRN Hypoglycemia Protocol Glucose 15 gm 12/17/24 22:39 Glucose Oral Gel 15 Gm Of Glucse In 37.5 Gm Tube PO PRN PRN Hypoglycemia Protocol Heparin Sodium (Porcine) 7,500 units 12/27/24 14:06 12/31/24 09:57 Heparin Sodium 5,000 Units/Ml Vial IV PUSH 7,500 units PRN PRN Administration aPTT less than 55 seconds Heparin Sodium (Porcine) 3,500 units 12/27/24 14:06 01/01/25 23:11 Heparin Sodium 5,000 Units/Ml Vial IV PUSH 3,500 units PRN PRN Administration aPTT 55 - 70 seconds Dextrose 1,000 mls @ 100 mls/hr 12/17/24 22:39 Dextrose 5% 1,000 Ml IVPB PRN PRN Hypoglycemia Protocol Albumin Human 50 mls @ 999 mls/hr 12/22/24 05:43 Albutein IVPB 01/21/25 05:42 Q10M PRN HYPOTENSION Heparin Sodium/Dextrose 25,000 units in 250 mls @ 19 mls/hr 12/27/24 14:10 01/05/25 05:59 Heparin Sodium/D5w 100 Units/Ml IV CONT 1,900 units/hr .[id number] REGINA 19 mls/hr Titration Protocol 1,900 UNITS/HR Insulin Aspart 2 - 5 units 12/29/24 12:00 01/05/25 13:27 Insulin Aspart (*Bkc) 100 Units/Ml SUB-Q Not Given TIDWM [facility] Protocol Insulin Aspart 2 - 5 units 12/29/24 21:00 01/04/25 20:24 Insulin Aspart (*Bkc) 100 Units/Ml SUB-Q 2 units HS REGINA Administration Protocol Levothyroxine Sodium 250 mcg 12/21/24 06:30 01/05/25 06:55 Levothyroxine Sodium 125 Mcg Tablet PO Not Given [id number]@0630 REGINA Levothyroxine Sodium 125 mcg 12/26/24 06:30 01/02/25 06:02 Levothyroxine Sodium 125 Mcg Tablet PO 125 mcg Mitchell@0630 REGINA Administration Metoprolol Tartrate 50 mg 01/02/25 21:00 01/05/25 13:30 Metoprolol Tartrate 50 Mg Tab PO 50 mg Q12HR REGINA Administration Multi-Ingred Cream/Lotion/Oil/Oint 1 applic 01/01/25 12:35 01/05/25 13:30 Eucerin Cream 120 Gm Jar TOPICAL 1 applic DAILY REGINA Administration Nicotine 1 patch 01/04/25 21:00 01/04/25 20:17 Nicotine (*Pbkc) 21 Mg Patch TRANSDERM 1 patch HS REGINA Administration Ondansetron HCl 4 mg 12/17/24 16:18 01/02/25 08:59 Ondansetron Inj 4 Mg/2 Ml Vial IV PUSH 4 mg Q4H PRN Administration Nausea Polyethylene Glycol 17 gm 01/03/25 09:00 01/05/25 13:26 Polyethylene Glycol 3350 17 Gm Powd.Pack PO Not Given QAM REGINA Quetiapine Fumarate 25 mg 12/31/24 21:00 01/04/25 20:16 Quetiapine Fumarate 25 Mg Tablet PO 25 mg HS REGINA Administration Sertraline HCl 100 mg 12/18/24 09:00 01/05/25 13:30 Sertraline Hcl 50 Mg Tablet PO 100 mg DAILY REGINA Administration Tamsulosin HCl 0.4 mg 01/05/25 21:00 Tamsulosin Hcl 0.4 Mg Capsule PO HS REGINA Vitamin D 1,000 units 12/31/24 09:00 01/05/25 13:28 Cholecalciferol 1,000 Units Tablet PO Not Given DAILY REGINA Radiology Results: ITS Impressions Lumbar Spine X-Ray 12/17/24 15:44 IMPRESSION: Anterior loss of volume of L1 which is most likely chronic. MRI evaluation advised. Otherwise, No acute osseous abnormality lumbar spine. Degenerative disc disease at the level of L4-L5. Venous Doppler Study 12/18/24 13:13 IMPRESSION: 1. No deep venous thrombosis. Abdomen Ultrasound 12/18/24 13:18 IMPRESSION: 1. Cholelithiasis. No evidence of acute cholecystitis. 2. Mildly dilated common duct. Renal Ultrasound 12/18/24 13:21 IMPRESSION: 1. Normal kidney sizes. No hydronephrosis. Lumbar Spine MRI 12/18/24 15:23 IMPRESSION: Limited examination secondary to motion artifact. No abnormal signal intensity or contrast enhancement is identified within the vertebral body of L1 to suggest acute traumatic injury. Within the visualized intervertebral disc spaces, moderate degenerative disease is noted, as detailed above. Duplex Scan Lower Extremity Artery 12/18/24 21:35 IMPRESSION: Abnormal peak systolic velocity and waveform morphology suggesting a popliteal or tibioperoneal trunk stenosis. Three-vessel blood flow into the right calf with single vessel blood flow into the right foot (on the submitted images) MRCP 12/21/24 08:48 IMPRESSION: 1. Study terminated at patient request prior to obtaining the normal complement of sequences including the MRCP images and which along with some motion artifact on the obtained sequences moderately limits evaluation. 2. Anasarca with small left and moderate-sized right pleural effusions, small amount of ascites and extensive body wall, as enteric and retroperitoneal edema. 3. Normal-appearing gallbladder with no evident cholelithiasis and with no intra or extrahepatic biliary ductal dilation. Sensitivity for tiny gallstones which were suggested on prior ultrasound is limited by motion artifact. 4. Cardiomegaly. Liver Biopsy Ultrasound 12/22/24 10:51 IMPRESSION: 1. Successful Ultrasound-guided random liver biopsy. Renal Biopsy Ultrasound 12/23/24 10:32 IMPRESSION: 1. Ultrasound-guided random left kidney core needle biopsy. Head CT 12/25/24 17:06 IMPRESSION: No acute intracranial process. Chest X-Ray 01/03/25 06:59 Impression: Mild pulmonary edema pattern with probable element of left lower lobe atelectasis. Small left pleural effusion. Right IJ line. Scrotum Ultrasound 01/05/25 15:10 IMPRESSION: Significant soft tissue swelling, without inherent testicular abnormality. Labs Labs: Laboratory Results - last 24 hr 01/04/25 01/04/25 01/05/25 16:33 20:21 05:32 Sodium 135 L Potassium 4.4 Chloride 102 Carbon Dioxide 25 Anion Gap 8 BUN 39 H Creatinine 3.24 H Estim Creat Clear Calc 28 Estimated GFR 19 L Glucose 111 H POC Capillary Glucose 140 H 205 H Calcium 7.9 L Total Bilirubin 0.9 AST 30 ALT 62 H Alkaline Phosphatase 141 H Total Protein 5.0 L Albumin 2.8 L 01/05/25 01/05/25 07:50 11:56 Sodium Potassium Chloride Carbon Dioxide Anion Gap BUN Creatinine Estim Creat Clear Calc Estimated GFR Glucose POC Capillary Glucose 110 H 94 Calcium Total Bilirubin AST ALT Alkaline Phosphatase Total Protein Albumin Quality VTE Prophylaxis VTE prophylaxis: pharmacologic ordered
[2025-01-05] MEDS: HEPARIN SOD/D5W 100 UNITS/ML 25,000 UNITS/250 ML BAG 15 UNITS IV CONT (16:15)
--- NOTE | 2025-01-05 16:15 | P.PNCA_ITS ---
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 He has new onset atrial fibrillation with RVR currently on metoprolol 50 mg t.i.d.. Chronic systolic heart failure with LVEF 20% (at 1 point LVEF improved to 40% however it is back to its previous 20%) -he appears euvolemic and compensated however unfortunately due to low blood pressure, he is no longer able to tolerate guideline directed medical therapy which could be indication of worsening disease. Also he has ELEANOR with creatinine more than 3 -volume control through hemodialysis which is new for him during this hospitalization -continue metoprolol Paroxysmal atrial fibrillation with RVR-asymptomatic -continue Eliquis -increased dose of metoprolol to 50 mg q.i.d. if blood pressure tolerates. This will help with better heart rate control prior to planned tunneled line placement by surgery Hyperlipidemia -statins on hold due to transaminitis -continue Zetia 10 mg p.o. 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 He currently no longer feels weak and denies any chest discomfort shortness of breath. No palpitations, dizziness, lightheadedness, presyncope, syncope, orthopnea, PND. He has chronic right leg swelling. He currently has no complaints. He has new onset atrial fibrillation with RVR currently on metoprolol 50 mg t.i.d.. He has ELEANOR with creatinine greater than 3. He was scheduled for a tunneled catheter placement with surgery today. But the procedure was canceled due to RVR with heart rates in the 110s. Cardiology is consulted for further recommendations. Workup: TTE: LVEF severely depressed 25-30%, mild MR, mild TR, mild PA, moderate pulmonary hypertension with PASP of 45 mm Hg, small pericardial effusion. Review of Systems Cardiovascular: Comments: As reported in the HPI Respiratory: Comments: As reported in the HPI Exam Narrative: General: Alert oriented x3, no acute distress Neck: Supple, no JVD Chest: Bilaterally clear to auscultation, no rales or rhonchi Cardiac: S1, S2 +, regular rate, regular rhythm, no murmurs or rubs Extremities: Right lower extremity edema 1 to 2+, no skin rash Neurologic: Alert and oriented x3, no focal neurological deficits Objective Data Vital Signs Vital Signs: Vital Signs - 24 hr 01/04/25 20:00 01/04/25 20:16 01/04/25 21:06 Temperature 36.1 C L Pulse Rate 102 H 102 H 106 H Respiratory Rate 20 Blood Pressure 108/79 Pulse Oximetry 93 Oxygen Delivery 01/05/25 04:00 01/05/25 05:34 01/05/25 08:00 Temperature 35.8 C L Pulse Rate 95 99 97 Respiratory Rate 24 H Blood Pressure 96/68 L Pulse Oximetry 100 Oxygen Delivery 01/05/25 08:55 01/05/25 09:17 01/05/25 09:30 Temperature 37.2 C Pulse Rate 113 H 114 H 111 H Respiratory Rate 18 Blood Pressure 107/79 110/80 107/78 Pulse Oximetry 99 Oxygen Delivery 01/05/25 09:45 01/05/25 10:00 01/05/25 10:15 Temperature Pulse Rate 104 H 104 H 112 H Respiratory Rate Blood Pressure 106/77 110/82 117/83 Pulse Oximetry Oxygen Delivery 01/05/25 10:30 01/05/25 10:45 01/05/25 10:57 Temperature Pulse Rate 104 H 110 H 111 H Respiratory Rate Blood Pressure 113/83 115/82 113/83 Pulse Oximetry Oxygen Delivery 01/05/25 11:12 01/05/25 11:15 01/05/25 11:30 Temperature Pulse Rate 102 H 110 H 115 H Respiratory Rate Blood Pressure 109/82 119/81 109/83 Pulse Oximetry Oxygen Delivery 01/05/25 11:45 01/05/25 12:00 01/05/25 12:00 Temperature Pulse Rate 107 H 122 H 111 H Respiratory Rate Blood Pressure 121/84 121/89 Pulse Oximetry Oxygen Delivery 01/05/25 12:15 01/05/25 12:32 01/05/25 12:40 Temperature 36.8 C Pulse Rate 115 H 114 H 111 H Respiratory Rate 16 Blood Pressure 124/85 116/84 119/87 Pulse Oximetry 98 Oxygen Delivery 01/05/25 12:57 01/05/25 13:30 01/05/25 14:00 Temperature 36.4 C Pulse Rate 122 H 109 H Respiratory Rate 18 Blood Pressure 114/89 Pulse Oximetry 98 99 Oxygen Delivery Room Air Intake/Output Intake/Output: Intake & Output 01/02/25 01/03/25 01/04/25 01/05/25 23:59 23:59 23:59 23:59 Intake Total 1284.5 940.0 976.0 521.6 Output Total 450 7798 326 7175 Balance 834.5 -967.0 626 -723.4 Meds/Results Medications: Active Medications Generic Name Dose Route Start Last Admin Trade Name Freq PRN Reason Stop Dose Admin Acetaminophen 650 mg 12/31/24 12:08 Acetaminophen 650 Mg Suppository RECTAL Q6H PRN Mild Pain (1-3) or Fever Hydrocodone Bitart/Acetaminophen 1 tab 01/05/25 09:51 01/05/25 09:57 Hydrocodone/Acetaminophen (*Crx) 5-325 Mg Tablet PO 1 tab Q6H PRN Administration Pain Rated 4-6 Aspirin 81 mg 12/20/24 08:00 01/05/25 13:25 Aspirin 81 Mg Chewable Tablet PO Not Given DAILY@0800 REGINA Calcium Carbonate 200 mg 12/18/24 22:39 Calcium Carbonate (Tums) 500 Mg (200 Mg Elemental) PO Q6H PRN Indigestion Dextrose 12.5 gm 12/17/24 22:39 Dextrose 50% 25 Gm/50 Ml Syringe IV PUSH PRN PRN Hypoglycemia Protocol Docusate Sodium 100 mg 12/23/24 21:00 01/05/25 13:28 Docusate Sodium 100 Mg Capsule PO Not Given Q12HR REGINA Ezetimibe 10 mg 12/18/24 09:00 01/05/25 13:28 Ezetimibe 10 Mg Tablet PO Not Given DAILY [facility] Epoetin Oscar-epbx 4,000 units 01/05/25 18:20 01/05/25 12:22 Epoetin Oscar-Epbx 4,000 Units/Ml Vial IV PUSH 01/05/25 18:21 4,000 units ONCE ONE Administration Glucagon 1 mg 12/17/24 22:39 Glucagon For Inj 1 Mg Vial IM PRN PRN Hypoglycemia Protocol Glucose 15 gm 12/17/24 22:39 Glucose Oral Gel 15 Gm Of Glucse In 37.5 Gm Tube PO PRN PRN Hypoglycemia Protocol Heparin Sodium (Porcine) 7,500 units 12/27/24 14:06 12/31/24 09:57 Heparin Sodium 5,000 Units/Ml Vial IV PUSH 7,500 units PRN PRN Administration aPTT less than 55 seconds Heparin Sodium (Porcine) 3,500 units 12/27/24 14:06 01/01/25 23:11 Heparin Sodium 5,000 Units/Ml Vial IV PUSH 3,500 units PRN PRN Administration aPTT 55 - 70 seconds Dextrose 1,000 mls @ 100 mls/hr 12/17/24 22:39 Dextrose 5% 1,000 Ml IVPB PRN PRN Hypoglycemia Protocol Albumin Human 50 mls @ 999 mls/hr 12/22/24 05:43 Albutein IVPB 01/21/25 05:42 Q10M PRN HYPOTENSION Heparin Sodium/Dextrose 25,000 units in 250 mls @ 19 mls/hr 12/27/24 14:10 01/05/25 05:59 Heparin Sodium/D5w 100 Units/Ml IV CONT 1,900 units/hr .[id number] REGINA 19 mls/hr Titration Protocol 1,900 UNITS/HR Insulin Aspart 2 - 5 units 12/29/24 12:00 01/05/25 13:27 Insulin Aspart (*Bkc) 100 Units/Ml SUB-Q Not Given TIDWM [facility] Protocol Insulin Aspart 2 - 5 units 12/29/24 21:00 01/04/25 20:24 Insulin Aspart (*Bkc) 100 Units/Ml SUB-Q 2 units HS REGINA Administration Protocol Levothyroxine Sodium 250 mcg 12/21/24 06:30 01/05/25 06:55 Levothyroxine Sodium 125 Mcg Tablet PO Not Given MoTuWeThFrSa@0630 [facility] Levothyroxine Sodium 125 mcg 12/26/24 06:30 01/02/25 06:02 Levothyroxine Sodium 125 Mcg Tablet PO 125 mcg Mitchell@0630 REGINA Administration Metoprolol Tartrate 50 mg 01/02/25 21:00 01/05/25 13:30 Metoprolol Tartrate 50 Mg Tab PO 50 mg Q12HR REGINA Administration Multi-Ingred Cream/Lotion/Oil/Oint 1 applic 01/01/25 12:35 01/05/25 13:30 Eucerin Cream 120 Gm Jar TOPICAL 1 applic DAILY REGINA Administration Nicotine 1 patch 01/04/25 21:00 01/04/25 20:17 Nicotine (*Anusha) 21 Mg Patch TRANSDERM 1 patch HS [facility] Administration Ondansetron HCl 4 mg 12/17/24 16:18 01/02/25 08:59 Ondansetron Inj 4 Mg/2 Ml Vial IV PUSH 4 mg Q4H PRN Administration Nausea Polyethylene Glycol 17 gm 01/03/25 09:00 01/05/25 13:26 Polyethylene Glycol 3350 17 Gm Powd.Pack PO Not Given QAM [facility] Quetiapine Fumarate 25 mg 12/31/24 21:00 01/04/25 20:16 Quetiapine Fumarate 25 Mg Tablet PO 25 mg HS [facility] Administration Sertraline HCl 100 mg 12/18/24 09:00 01/05/25 13:30 Sertraline Hcl 50 Mg Tablet PO 100 mg DAILY REGINA Administration Tamsulosin HCl 0.4 mg 01/05/25 21:00 Tamsulosin Hcl 0.4 Mg Capsule PO HS [facility] Vitamin D 1,000 units 12/31/24 09:00 01/05/25 13:28 Cholecalciferol 1,000 Units Tablet PO Not Given DAILY [facility] Radiology Results: ITS Impressions Lumbar Spine X-Ray 12/17/24 15:44 IMPRESSION: Anterior loss of volume of L1 which is most likely chronic. MRI evaluation advised. Otherwise, No acute osseous abnormality lumbar spine. Degenerative disc disease at the level of L4-L5. Venous Doppler Study 12/18/24 13:13 IMPRESSION: 1. No deep venous thrombosis. Abdomen Ultrasound 12/18/24 13:18 IMPRESSION: 1. Cholelithiasis. No evidence of acute cholecystitis. 2. Mildly dilated common duct. Renal Ultrasound 12/18/24 13:21 IMPRESSION: 1. Normal kidney sizes. No hydronephrosis. Lumbar Spine MRI 12/18/24 15:23 IMPRESSION: Limited examination secondary to motion artifact. No abnormal signal intensity or contrast enhancement is identified within the vertebral body of L1 to suggest acute traumatic injury. Within the visualized intervertebral disc spaces, moderate degenerative disease is noted, as detailed above. Duplex Scan Lower Extremity Artery 12/18/24 21:35 IMPRESSION: Abnormal peak systolic velocity and waveform morphology suggesting a popliteal or tibioperoneal trunk stenosis. Three-vessel blood flow into the right calf with single vessel blood flow into the right foot (on the submitted images) MRCP 12/21/24 08:48 IMPRESSION: 1. Study terminated at patient request prior to obtaining the normal complement of sequences including the MRCP images and which along with some motion artifact on the obtained sequences moderately limits evaluation. 2. Anasarca with small left and moderate-sized right pleural effusions, small amount of ascites and extensive body wall, as enteric and retroperitoneal edema. 3. Normal-appearing gallbladder with no evident cholelithiasis and with no intra or extrahepatic biliary ductal dilation. Sensitivity for tiny gallstones which were suggested on prior ultrasound is limited by motion artifact. 4. Cardiomegaly. Liver Biopsy Ultrasound 12/22/24 10:51 IMPRESSION: 1. Successful Ultrasound-guided random liver biopsy. Renal Biopsy Ultrasound 12/23/24 10:32 IMPRESSION: 1. Ultrasound-guided random left kidney core needle biopsy. Head CT 12/25/24 17:06 IMPRESSION: No acute intracranial process. Chest X-Ray 01/03/25 06:59 Impression: Mild pulmonary edema pattern with probable element of left lower lobe atelectasis. Small left pleural effusion. Right IJ line. Scrotum Ultrasound 01/05/25 15:10 IMPRESSION: Significant soft tissue swelling, without inherent testicular abnormality. Labs Labs: Laboratory Results - last 24 hr 01/04/25 01/04/25 01/05/25 16:33 20:21 05:32 Sodium 135 L Potassium 4.4 Chloride 102 Carbon Dioxide 25 Anion Gap 8 BUN 39 H Creatinine 3.24 H Estim Creat Clear Calc 28 Estimated GFR 19 L Glucose 111 H POC Capillary Glucose 140 H 205 H Calcium 7.9 L Total Bilirubin 0.9 AST 30 ALT 62 H Alkaline Phosphatase 141 H Total Protein 5.0 L Albumin 2.8 L 01/05/25 01/05/25 07:50 11:56 Sodium Potassium Chloride Carbon Dioxide Anion Gap BUN Creatinine Estim Creat Clear Calc Estimated GFR Glucose POC Capillary Glucose 110 H 94 Calcium Total Bilirubin AST ALT Alkaline Phosphatase Total Protein Albumin
[2025-01-05] MEDS: HEPARIN SODIUM 5,000 UNITS/ML VIAL 7500 UNITS IV PUSH (16:17)
[2025-01-05 16:28] LABS: Glucose Point of Care 76 mg/dl (65-105)
[2025-01-05 20:29] LABS: Glucose Point of Care 189 mg/dl (65-105)
[2025-01-05] MEDS: TAMSULOSIN HCL 0.4 MG CAPSULE PO (21:13)
[2025-01-05] MEDS: DOCUSATE SODIUM 100 MG CAPSULE PO (21:19)
[2025-01-05] MEDS: QUEtiapine FUMARATE 25 MG TABLET PO (21:19)
[2025-01-05] MEDS: NICOTINE (*PBKC) 21 MG PATCH 1 PATCH TRANSDERM (21:25)
[2025-01-05] MEDS: CALCIUM CARBONATE (TUMS) 500 MG (200 MG ELEMENTAL) PO (23:56)
[2025-01-06] VITALS (14 sets, daily range): BP systolic 90–110; BP diastolic 67–90; PULSE 92–128; RESP 16–22; TEMP 35.9–36.6; O2SAT 90–100
[2025-01-06] MEDS: ONDANSETRON INJ 4 MG/2 ML VIAL IV PUSH (01:34)
[2025-01-06] MEDS: HEPARIN SOD/D5W 100 UNITS/ML 25,000 UNITS/250 ML BAG 15 UNITS IV CONT (02:23)
[2025-01-06 05:07] LABS: Partial Thromboplastin Time 62.9 Seconds (22.3-36.8)
[2025-01-06] MEDS: HEPARIN SODIUM 5,000 UNITS/ML VIAL 3500 UNITS IV PUSH (05:23)
[2025-01-06 08:03] LABS: Glucose Point of Care 136 mg/dl (65-105)
[2025-01-06] MEDS: METOPROLOL TARTRATE 50 MG TAB PO ×2 (08:12→13:01)
[2025-01-06] MEDS: SERTRALINE HCL 50 MG TABLET 100 MG PO (08:12)
[2025-01-06] MEDS: EUCERIN CREAM 120 GM JAR 1 APPLIC TOPICAL (09:00)
[2025-01-06] MEDS: NEOMYCIN/POLYMYXIN/BACITRACIN OINTMENT PACKET 1 PACKET (11:04)
[2025-01-06 11:53] LABS: Glucose Point of Care 144 mg/dl (65-105)
--- NOTE | 2025-01-06 12:45 | P.PNNP_ITS ---
Progress Note: A&P Assessment and Plan (1) Acute kidney injury: Code(s): N17.9 - Acute kidney failure, unspecified Status: Acute Assessment and Plan: * as noted on admission * evaluation to date noted: * renal u/s normal * urine eosinophils negative * nephrotic range proteinuria * prerenal urine electrolytes * CPK mildly elevated (but not enought to affect kidney function) * further serologies pending * outpatient evaluation noted - normal complements but hematuria with positive * initiated CARPET SEWER/HD on 12/21/24 * s/p RENAL BIOPSY (on 12/22) with findings noted: * diabetic nephropathy/glomerulosclerosis (class IV) * significant interstitial fibrosis/tubular atrophy noted as well * fluctuating urine output noted * however, BUN + creatinine continue to rise without dialytic support * HD tomorrow- will continue M// schedule for now * Surgery following for tunneled HD catheter placement (2) Stage 3b chronic kidney disease: Code(s): N18.32 - Chronic kidney disease, stage 3b Status: Chronic Assessment and Plan: * baseline creatinine runs around 1.7 - 2.3mg/dl * secondary to diabetes (as noted by renal biopsy) and hypertension (3) Pneumonia: Code(s): J18.9 - Pneumonia, unspecified organism Status: Acute Assessment and Plan: * admission CXR with bibasilar infiltrates * completed course of antibiotics * respiratory status stable (4) Heart failure with mildly reduced ejection fraction: Code(s): I50.22 - Chronic systolic (congestive) heart failure Status: Acute Assessment and Plan: * known history * repeat Echo (12/18) noted: * severely reduced systolic function with EF 25-30% * diastolic dysfunction * mild valvular disease * moderate pulmonary hypertension * CXR with cardiomegaly, bibasilar infiltrates and small pleural effusions * Entresto and diuretics on hold given #1 * removing fluid with dialysis * not opposed to re-start entresto if BP can tolerate * Cardiology following (5) Encephalopathy: Code(s): G93.40 - Encephalopathy, unspecified Status: Acute Assessment and Plan: * doing better * doubt uremia playing a role given improvement in BUN * testing to date noted: * ammonia level is okay * B12 and folate are okay * WBC okay and no fevers so unlikely to be related to infection * aodium good * magnesium and calcium stable * CT of brain normal * ABGs reasonable * Neurology recommendations noted (6) Atrial flutter with rapid ventricular response: Code(s): I48.92 - Unspecified atrial flutter Status: Acute Assessment and Plan: * rate control strategy * on heparin gtt for anticoagulation * eventual plan to transition to oral anticoagulation (7) Transaminitis: Code(s): R74.01 - Elevation of levels of liver transaminase levels Status: Resolved Assessment and Plan: * resolving if not resolved * normal earlier in November 2024 * hepatitis panel negative * abd US showing cholelithiasis and mildly dilated CBD; liver is normal in appearance * holding statin * liver biopsy (on 12/21) noted: * congestive hepatopathy and congestive hepatic fibrosis (8) Anemia: Code(s): D64.9 - Anemia, unspecified Status: Acute Assessment and Plan: * related to ELEANOR, CKD, and acute illness * Epogen with HD as needed * follow trend of H/H (9) Peripheral vascular disease: Code(s): I73.9 - Peripheral vascular disease, unspecified Status: Acute Assessment and Plan: * known history * on zetia but statin on hold given previous elevated LFTs * complicated by ongoing smoking * arterial dopplers noted (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 L Subjective Date/time seen: 01/06/25 12:45 Interval history: Follow-up for acute kidney injury/acute renal failure on chronic kidney disease. Tolerated dialysis treatment yesterday morning without any issues or problems; tunneled HD catheter re-scheduled for later today; no apparent distress noted at the time of my visit; no issues/events overnight or earlier this morning; Exam 2 Narrative: General: elderly male in NAD Heart: tachycardic; normal S1 and S2; no rub Lungs: clear anteriorly; decreased at bases Abdomen: obese but soft, nontender, nondistended, positive bowel sounds Extremities: no cyanosis or clubbing; trace edema in RLE; s/p left AKA Skin: no rash Objective Data Vital Signs Vital Signs: Vital Signs Temp Pulse Resp BP Pulse Ox O2 Del Method 01/06/25 12:08 96.9 F L 112 H 22 H 99/73 L 93 04/17/25 08:12 110 H 01/06/25 06:00 97.6 F 128 H 18 110/90 93 01/06/25 04:00 105 H 01/06/25 00:00 103 H 01/05/25 22:00 97.7 F 91 18 102/90 98 01/05/25 21:58 107 H 01/05/25 21:24 110 H 01/05/25 21:15 101/79 Intake/Output Intake/Output: Intake & Output 01/03/25 01/04/25 01/05/25 01/06/25 23:59 23:59 23:59 23:59 Intake Total 940.0 976.0 2050.0 222.2 Output Total 4680 556 4635 600 Balance -967.0 626 405.0 -377.8 Meds/Results Medications: Active Medications Generic Name Dose Route Start Last Admin Trade Name Freq PRN Reason Stop Dose Admin Acetaminophen 650 mg 12/31/24 12:08 Acetaminophen 650 Mg Suppository RECTAL Q6H PRN Mild Pain (1-3) or Fever Hydrocodone Bitart/Acetaminophen 1 tab 01/05/25 09:51 01/05/25 21:26 Hydrocodone/Acetaminophen (*Crx) 5-325 Mg Tablet PO 1 tab Q6H PRN Administration Pain Rated 4-6 Aspirin 81 mg 12/20/24 08:00 01/06/25 08:00 Aspirin 81 Mg Chewable Tablet PO Not Given DAILY@0800 REGINA Calcium Carbonate 200 mg 12/18/24 22:39 01/05/25 23:56 Calcium Carbonate (Tums) 500 Mg (200 Mg Elemental) PO 200 mg Q6H PRN Administration Indigestion Dextrose 12.5 gm 12/17/24 22:39 Dextrose 50% 25 Gm/50 Ml Syringe IV PUSH PRN PRN Hypoglycemia Protocol Docusate Sodium 100 mg 12/23/24 21:00 01/06/25 09:00 Docusate Sodium 100 Mg Capsule PO Not Given Q12HR REGINA Ezetimibe 10 mg 12/18/24 09:00 01/06/25 09:00 Ezetimibe 10 Mg Tablet PO Not Given DAILY REGINA Glucagon 1 mg 12/17/24 22:39 Glucagon For Inj 1 Mg Vial IM PRN PRN Hypoglycemia Protocol Glucose 15 gm 12/17/24 22:39 Glucose Oral Gel 15 Gm Of Glucse In 37.5 Gm Tube PO PRN PRN Hypoglycemia Protocol Heparin Sodium (Porcine) 7,500 units 12/27/24 14:06 01/05/25 16:17 Heparin Sodium 5,000 Units/Ml Vial IV PUSH 7,500 units PRN PRN Administration aPTT less than 55 seconds Heparin Sodium (Porcine) 3,500 units 12/27/24 14:06 01/06/25 05:23 Heparin Sodium 5,000 Units/Ml Vial IV PUSH 3,500 units PRN PRN Administration aPTT 55 - 70 seconds Dextrose 1,000 mls @ 100 mls/hr 12/17/24 22:39 Dextrose 5% 1,000 Ml IVPB PRN PRN Hypoglycemia Protocol Albumin Human 50 mls @ 999 mls/hr 12/22/24 05:43 Albutein IVPB 01/21/25 05:42 Q10M PRN HYPOTENSION Heparin Sodium/Dextrose 25,000 units in 250 mls @ 0 mls/hr 12/27/24 14:10 01/06/25 06:52 Heparin Sodium/D5w 100 Units/Ml IV CONT 0 units/hr .Q0M REGINA 0 mls/hr Titration Protocol 0 UNITS/HR Amiodarone HCl/Dextrose 360 mg in 200 mls @ 33.333 mls/hr 01/06/25 15:07 Nexterone 360 Mg/D5w 200 Ml IV CONT 01/06/25 21:06 .Q6H ONE 1 MG/MIN Amiodarone HCl/Dextrose 360 mg in 200 mls @ 16.667 mls/hr 01/06/25 21:07 Nexterone 360 Mg/D5w 200 Ml IV CONT .Q12H REGINA 0.5 MG/MIN Sodium Chloride 500 mls @ 30 mls/hr 01/06/25 16:10 Normal Saline Iv IV CONT .[id number] REGINA Insulin Aspart 2 - 5 units 12/29/24 12:00 01/06/25 13:00 Insulin Aspart (*Bkc) 100 Units/Ml SUB-Q Not Given TIDWM REGIN[facility] Protocol Insulin Aspart 2 - 5 units 12/29/24 21:00 01/05/25 21:20 Insulin Aspart (*Bkc) 100 Units/Ml SUB-Q Not Given HS REGINA Protocol Levothyroxine Sodium 250 mcg 12/21/24 06:30 01/06/25 05:35 Levothyroxine Sodium 125 Mcg Tablet PO Not Given MoTuWeThFrSa@0630 REGINA Levothyroxine Sodium 125 mcg 12/26/24 06:30 01/02/25 06:02 Levothyroxine Sodium 125 Mcg Tablet PO 125 mcg Mitchell@0630 REGINA Administration Metoprolol Tartrate 50 mg 01/06/25 14:00 01/06/25 13:01 Metoprolol Tartrate 50 Mg Tab PO 50 mg Q6H REGINA Administration Multi-Ingred Cream/Lotion/Oil/Oint 1 applic 01/01/25 12:35 01/06/25 09:00 Eucerin Cream 120 Gm Jar TOPICAL 1 applic DAILY REGINA Administration Nicotine 1 patch 01/04/25 21:00 01/05/25 21:25 Nicotine (*Soterokc) 21 Mg Patch TRANSDERM 1 patch HS REGINA Administration Ondansetron HCl 4 mg 12/17/24 16:18 01/06/25 01:34 Ondansetron Inj 4 Mg/2 Ml Vial IV PUSH 4 mg Q4H PRN Administration Nausea Polyethylene Glycol 17 gm 01/03/25 09:00 01/06/25 09:00 Polyethylene Glycol 3350 17 Gm Powd.Pack PO Not Given QAM [facility] Quetiapine Fumarate 25 mg 12/31/24 21:00 01/05/25 21:19 Quetiapine Fumarate 25 Mg Tablet PO 25 mg HS REGINA Administration Sertraline HCl 100 mg 12/18/24 09:00 01/06/25 08:12 Sertraline Hcl 50 Mg Tablet PO 100 mg DAILY REGINA Administration Tamsulosin HCl 0.4 mg 01/05/25 21:00 01/05/25 21:13 Tamsulosin Hcl 0.4 Mg Capsule PO 0.4 mg HS [facility] Administration Vitamin D 1,000 units 12/31/24 09:00 01/06/25 09:00 Cholecalciferol 1,000 Units Tablet PO Not Given DAILY [facility] Radiology Results: ITS Impressions Lumbar Spine X-Ray 12/17/24 15:44 IMPRESSION: Anterior loss of volume of L1 which is most likely chronic. MRI evaluation advised. Otherwise, No acute osseous abnormality lumbar spine. Degenerative disc disease at the level of L4-L5. Venous Doppler Study 12/18/24 13:13 IMPRESSION: 1. No deep venous thrombosis. Abdomen Ultrasound 12/18/24 13:18 IMPRESSION: 1. Cholelithiasis. No evidence of acute cholecystitis. 2. Mildly dilated common duct. Renal Ultrasound 12/18/24 13:21 IMPRESSION: 1. Normal kidney sizes. No hydronephrosis. Lumbar Spine MRI 12/18/24 15:23 IMPRESSION: Limited examination secondary to motion artifact. No abnormal signal intensity or contrast enhancement is identified within the vertebral body of L1 to suggest acute traumatic injury. Within the visualized intervertebral disc spaces, moderate degenerative disease is noted, as detailed above. Duplex Scan Lower Extremity Artery 12/18/24 21:35 IMPRESSION: Abnormal peak systolic velocity and waveform morphology suggesting a popliteal or tibioperoneal trunk stenosis. Three-vessel blood flow into the right calf with single vessel blood flow into the right foot (on the submitted images) MRCP 12/21/24 08:48 IMPRESSION: 1. Study terminated at patient request prior to obtaining the normal complement of sequences including the MRCP images and which along with some motion artifact on the obtained sequences moderately limits evaluation. 2. Anasarca with small left and moderate-sized right pleural effusions, small amount of ascites and extensive body wall, as enteric and retroperitoneal edema. 3. Normal-appearing gallbladder with no evident cholelithiasis and with no intra or extrahepatic biliary ductal dilation. Sensitivity for tiny gallstones which were suggested on prior ultrasound is limited by motion artifact. 4. Cardiomegaly. Liver Biopsy Ultrasound 12/22/24 10:51 IMPRESSION: 1. Successful Ultrasound-guided random liver biopsy. Renal Biopsy Ultrasound 12/23/24 10:32 IMPRESSION: 1. Ultrasound-guided random left kidney core needle biopsy. Head CT 12/25/24 17:06 IMPRESSION: No acute intracranial process. Chest X-Ray 01/03/25 06:59 Impression: Mild pulmonary edema pattern with probable element of left lower lobe atelectasis. Small left pleural effusion. Right IJ line. Scrotum Ultrasound 01/05/25 15:10 IMPRESSION: Significant soft tissue swelling, without inherent testicular abnormality. Labs Labs: Laboratory Tests 01/04/25 06:01 01/05/25 05:32
--- NOTE | 2025-01-06 15:09 | P.PNAN_ITS ---
Anes - Initial Pre Proc Eval Procedure: Operation Date: 01/04/25 13:00 Proposed Procedures p Placement Tunneled Dialysis Catheter - Ephraim Corona MD Operation Date: 01/05/25 14:00 Proposed Procedures p Placement Tunneled Dialysis Catheter - Ephraim Corona MD Operation Date: 01/06/25 15:30 Proposed Procedures p Placement Tunneled Central Venous Catheter - Ephraim Corona MD Date/Time: 01/06/25 15:09 Surgeon: Tomas Butler MD Pre Op Diagnosis: ELEANOR,AFLUTTER WITH RVR Patient Data Age: 64 Gender: M Height: 1.88 m Weight: 111.8 kg Last Vital Signs Temp 36.1 C L 01/06/25 13:38 Pulse 112 H 01/06/25 13:38 Resp 22 H 01/06/25 13:38 BP 99/73 L 01/06/25 13:38 Pulse Ox 93 01/06/25 13:38 O2 Del Method Room Air 01/05/25 12:57 O2 Flow Rate 0 12/27/24 09:25 FiO2 0 01/01/25 08:00 Allergies Allergy/AdvReac Type Severity Reaction Status Date / Time vancomycin Allergy Severe Anaphylactic Verified 12/18/24 02:25 Shock Home Medications ?Medication ?Instructions ?Recorded ?Confirmed ?Type hydrocodone 5 mg-acetaminophen 325 1 tablet PO Q8H PRN pain #60 tabs 04/27/20 12/17/24 Rx mg tablet glucagon 3 mg/actuation nasal 3 mg intranasal ONCE #1 ea 08/06/23 12/17/24 Rx spray (Baqsimi) glucose 4 gram chewable tablet 16 g (4 x 4 gram) PO Q15M PRN 08/06/23 12/17/24 Rx hypoglycemia #300 tabs sertraline 100 mg tablet 100 mg PO DAILY 02/26/24 12/17/24 History metoprolol succinate 50 mg 50 mg PO DAILY 04/01/24 12/17/24 History tablet,extended release 24 hr sacubitril 24 mg-valsartan 26 mg 1 tablet PO BID 04/20/24 12/17/24 History tablet (Entresto) finerenone 10 mg tablet (Kerendia) 10 mg PO DAILY #30 tabs 04/23/24 12/17/24 Rx atorvastatin 80 mg tablet See Rx Instructions .Route 05/14/24 12/17/24 Rx .COMPLEX #90 tabs ezetimibe 10 mg tablet 10 mg PO DAILY #90 tabs 08/05/24 12/17/24 Rx levothyroxine 125 mcg tablet See Rx Instructions .Route 10/08/24 12/17/24 Rx .COMPLEX #180 tabs insulin lispro 100 unit/mL 1 sliding scale dose subcut 10/26/24 12/17/24 Rx subcutaneous solution (Humalog USEASDIRECTD insulin pump #100 mL U-100 Insulin) blood-glucose sensor (Dexcom G7 #9 ea 11/02/24 12/17/24 Rx Sensor device) Laboratory Tests 01/05/25 01/05/25 01/05/25 16:19 20:27 22:30 APTT 78.0 H Seconds (22.3-36.8) POC Capillary Glucose 76 mg/dl 189 H mg/dl (65-105) (65-105) 01/06/25 01/06/25 01/06/25 04:43 07:53 11:34 APTT 62.9 H Seconds (22.3-36.8) POC Capillary Glucose 136 H mg/dl 144 H mg/dl (65-105) (65-105) Patient hx anesthesia problems: none Family hx anesthesia problems: none Results Review: All pre-operative results and documents have been reviewed as part of the pre- operative evaluation. [facility] Past Medical History Medical History Metabolic encephalopathy Tobacco dependence Diastolic dysfunction Heart failure with mildly reduced ejection fraction Albuminuria Diabetic peripheral neuropathy Insulin dependent type 2 diabetes mellitus Stage 3b chronic kidney disease Dyslipidemia Peripheral vascular disease Hypothyroidism Essential hypertension Chronic, continuous use of opioids Chronic pain of both shoulders Surgical History Surgical History History of left above knee amputation History of amputation of lesser toe of right foot Family History Family History Father Family history of diabetes mellitus in first degree relative Hypertension Family history of coronary artery disease Mother Family history of diabetes mellitus in first degree relative Sibling Family history of diabetes mellitus in first degree relative Other Diabetes mellitus Family history of cardiovascular disease Social History Social History Social History: Surrogate medical decision maker: Cristal Frye, friend. Code status: Full code. Smoking packs per day: 1.5 Smoking cigarettes per day: 30.0 Years smoked: 50 Smoking pack-years: 75.00 Smoking status: Current every day smoker Tobacco type: cigarettes Second hand tobacco smoke exposure: No Alcohol intake: former Substance use: current Substance use type: marijuana Do You Feel Safe in your Home?: Yes Lack of Transportation: No Lack of Food: Never True Current Housing: I Have Housing Concerned About Future Housing: No Difficulty Paying Gas/Electric Bills: No Difficulty Paying for Meds: No Currently Unemployed: No Education: High School Diploma/GED Difficulty w/ Childcare or Family Care: No Living arrangements: with family Additional living arrangements comments: girlfriend Occupation/Education: other Spiritual care concerns: No Anes - Eval Final PreProcedure Day of Procedure 01/06/25 15:09 Patient weight: obese Heart: irregular rhythm Lungs: decreased breath sounds Airway: Mallampati scale class III Neurological: confused Last oral intake: >/= 8 hours ASA classification: IV Emergent: no Anesthetic plan: proceed Anesthesia type and monitoring: general GIVS and standard monitoring Results Review: All pre-operative results and documents have been reviewed as part of the pre- operative evaluation. Informed Consent: The patient's anesthetic plan and its attendant risks and benefits were discussed with the patient/family/POA. Questions were solicited and answers provided to the satisfaction of the patient/family/POA.
--- NOTE | 2025-01-06 15:10 | WPDHPUPDATE1 ---
History and Physical Update Update Date/Time: 01/06/25 15:10 History and Physical has been reviewed, including an updated exam of the patient. There are NO changes in the patient's condition. Risks, benefits, and alternatives have been discussed and questions answered. Patient agrees to proceed with procedure.
--- NOTE | 2025-01-06 15:38 | P.PNIM_ITS ---
Progress Note: A&P Assessment and Plan (1) Altered mental status: Code(s): R41.82 - Altered mental status, unspecified Status: Acute Assessment and Plan: * Patient has developed confused since 12/25/2024. He was receiving ativan and haldol prn for agitation * Ammonia negative * ABG unremarkable. B12 normal. TSH as mentioned below. Vit D <12.8 * CT head unremarkable. CXR showing small left and small-mod right pleural effusion with associated atelectasis and/or PNA * UA noted so started empirically on ceftriaxone * BCx (12/25) NGTD. UCx 12/25 negative so Rocephin stopped. * EEG 12/28 - abnormal record due to the absence of a normal background rhythm but without evidence of paroxysmal activity * Stopped all of his sedating mediations and Seroquel added * Mental status better. Continue to hold all sedating medications. Continue Seroquel at night. * Increase activity and try to keep awake most of the day (2) Abnormal transaminases: Code(s): R74.8 - Abnormal levels of other serum enzymes Status: Acute Assessment and Plan: * On admission, LFTs were mildly elevated. Hepatitis panel negative. Abd US showing cholelithiasis and mildly dilated CBD. Liver was normal in appearance. Lipitor held. Repeat levels on 12/20 much worse with AST 1539, ALT 1066, AP 479, normal bili. Lactic acid 1.1. Acet level <10. [place] due to congestion from heart failure * Consider autoimmune with + * IV fluids stopped. GI consulted and appreciate their input. * Patient was able to complete some of the MRCP. This showed anasarca, small left and moderate size right pleural effusion, small amount of ascites, extensive body edema and cardiomegaly. He had a normal appearing gallbladder with no evidence of cholelithiasis no intra or extrahepatic biliary ductal dilatation. Sensitivity was limited. * Status post liver biopsy 12/22/2024: congestive hepatopathy and congestive h epatic fibrosis score 1. * LFTs improving. [place] related to hepatic congestion. Follow. (3) Acute kidney injury: Code(s): N17.9 - Acute kidney failure, unspecified Status: Acute Assessment and Plan: * Patient presents with weakness and may have had underlying PNA. * Cr on admission 4.3. Baseline Cr 2.1-2.9 range. He was started on IV fluids. * Urine eos negative. Eve 42. Total CK 371. Urine prot/Cr 4.7gm consistent with nephrotic syndrome. * Complement normal. Hx of + 1:640. Renal US normal. * Nephrology consulted and appreciate their input. Cryoglobulin negative. * Creatinine was trending up; HD catheter placement 12/22/2024 and was started on hemodialysis. * Renal biopsy 12/23/2024 with advanced diabetic glomerulosclerosis class 4. 50-60% tubular atrophy and interstitial fibrosis. * Last dialysis today 01/03/2025 * UOP poor. Cr rising. * Appreciate nephrology input. Discussed with nephrology. * Tunneled cath being planned. (4) Pneumonia: Code(s): J18.9 - Pneumonia, unspecified organism Status: Acute Assessment and Plan: * Patient presents with weakness after having cold and cough symptoms for 3 weeks. No benefit after 2 Z-packs. * CXR showing bibasilar infiltrates. No fevers or hypoxia. WBC 12K. * He was started on Rocephin and Doxycycline. * WBC normal now. BCx NGTD. MRSA screen negative. * Urine Ag negative. Sputum Cx growing MSSA and yeast. * He completed a 7 day course. Rocephin restarted for possible UTI but UCx negative so stopped. * Follow off abx (last dose of Rocephin was 12/29 at 1215) (5) Heart failure with mildly reduced ejection fraction: Code(s): I50.22 - Chronic systolic (congestive) heart failure Status: Acute Assessment and Plan: * Echo showing severely reduced systolic fxn with EF 25-30% with diastolic dysfunction, mild valve disease and moderate pulmonary HTN. BNP >30K. * CXR showing CMG, bibasilar infiltrates and small pleural effusions. * Entresto and finerenone on hold. Diuretics not listed on home med list. * Holding Entresto. * Monitor UOP, renal fxn, daily weights and fluid balance. (6) Atrial flutter with rapid ventricular response: Code(s): I48.92 - Unspecified atrial flutter Status: Acute Assessment and Plan: * New onset atrial fibrillation. On metoprolol. * On heparin drip for now. Change to Eliquis when able * HR poorly controlled. Advance metoprolol. * Monitor HR (7) Type 2 diabetes mellitus with hyperglycemia, with long-term current use of insulin: Code(s): E11.65 - Type 2 diabetes mellitus with hyperglycemia; Z79.4 - detention (current) use of insulin Status: Acute Assessment and Plan: * A1c 7%. The patient's blood glucose was reviewed * Patient was on an insulin pump at home. Concern patient was unable to handle his pump here so this was held. * Glucose remains well controlled off the insulin pump despite his improved eating habit * Continue AccuCheks covering with sliding scale. Hypoglycemia protocol available as needed. * Continue to monitor (8) Chronic kidney disease, stage 4 (severe): Code(s): N18.4 - Chronic kidney disease, stage 4 (severe) Status: Acute Assessment and Plan: As above (9) Status post above-knee amputation of left lower extremity: Code(s): Z89.612 - Acquired absence of left leg above knee Status: Acute Assessment and Plan: * Patient with known PAD. Venous doppler RLE negative for DVT. * Arterial doppler RLE suggestive of a popliteal or tibioperoneal trunk stenosis. There is three-vessel blood flow into the right calf with single vessel blood flow into the right foot. * Continue Zetia and ASA. Resume Lipitor when able. Plan # Hypothyroidism: Review of Endocrine note from 11/12 showing he was to skip the Friday Synthroid dose. TSH is 46.4. Free T4 is low-normal at 0.96. Total T3 is 0.5. Patient is currently on 250 mcg daily except no meds on Friday. Suspect the skipped dose has resulted in the change in his thyroid panel. Will adjust to 250mcg daily except added 125mcg on Sundays. # Tobacco dependence: Patient was educated about the benefits of smoking cessation # urinary retention status post cystoscopy with passive dilation of mild bulbar narrowing. Complex Hernandez catheter placement with 16 Slov[place] coude on 12/20/2024. Maintain Hernandez catheter until improvement in volume status and mobility. # Low back pain - Lumbar MRI performed but no acute finding seen on limited imaging due to motion artifact. # meth abuse - Possible meth abuse to explain some of his mental status confusion prior to admission. Will discuss when patient more awake and alert. 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 before patient can be discharge patient will need outpatient dialysis arrangement with a dialysis center, patient also developed new onset A.Fib with RVR seen by records management associate started on metoprolol now rate is under control however patient blood pressure is elevated and metoprolol was increased, being anticoagulated with heparin due to pending surgery, may switch to oral anticoagulation. # DVT prophylaxis - Heparin # Code status - full Subjective Date/time seen: 01/06/25 15:38 Interval history: Patient refusing dialysis this morning and later agreed. Patient denies chest pain, palpitations, headache, dizziness, nausea, or vomiting. Spoke with sister Ruby and she stated that they wanted patient transferred to [facility] or she would not mind [place], she felt that doctors were not doing what they should. Ruby mentioned ex is the POA and will be coming up to the hospital. Patient when he returned from dialysis was wanting a ride home and stated he does not want to go to [facility]. Nurse reports that ex was good with care here. 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 before patient can be discharge patient will need outpatient dialysis arrangement with a dialysis center, patient also developed new onset A.Fib with RVR seen by records management associate started on metoprolol now rate is under control however patient blood pressure is elevated and metoprolol was increased, being anticoagulated with heparin due to pending surgery, may switch to oral anticoagulation. Review of Systems Review of Systems: 12 systems were reviewed and are negativ e except for as per HPI. All systems reviewed & are unremarkable except as noted in HPI and below ROS unobtainable: Yes unobtainable due to mental status Exam Narrative: Patient is comfortable, NAD HEENT: eyes are clear and none icteric LUNGS:CTA HEART: RR S1S2 ABD: BS+, Soft and nontender Lower extremities: no edema SKIN: nonjaundiced Neuro: grossly intact. Objective Data Vital Signs Vital Signs: Vital Signs - 24 hr 01/05/25 16:00 01/05/25 21:15 01/05/25 21:24 Temperature Pulse Rate 104 H 110 H Respiratory Rate Blood Pressure 101/79 Pulse Oximetry Oxygen Delivery 01/05/25 21:58 01/05/25 22:00 01/06/25 00:00 Temperature 36.5 C Pulse Rate 107 H 91 103 H Respiratory Rate 18 Blood Pressure 102/90 Pulse Oximetry 98 Oxygen Delivery 01/06/25 04:00 01/06/25 06:00 01/06/25 08:12 Temperature 36.4 C Pulse Rate 105 H 128 H 110 H Respiratory Rate 18 Blood Pressure 110/90 Pulse Oximetry 93 Oxygen Delivery 01/06/25 13:01 01/06/25 13:38 01/06/25 15:00 Temperature 36.1 C L 36.6 C Pulse Rate 112 H 112 H 92 Respiratory Rate 22 H 16 Blood Pressure 99/73 L 95/67 L Pulse Oximetry 93 99 Oxygen Delivery Room Air Intake/Output Intake/Output: Intake & Output 01/03/25 01/04/25 01/05/25 01/06/25 23:59 23:59 23:59 23:59 Intake Total 940.0 976.0 2050.0 222.2 Output Total 5028 055 8828 600 Balance -967.0 626 405.0 -377.8 Meds/Results Medications: Active Medications Generic Name Dose Route Start Last Admin Trade Name Freq PRN Reason Stop Dose Admin Acetaminophen 650 mg 12/31/24 12:08 Acetaminophen 650 Mg Suppository RECTAL Q6H PRN Mild Pain (1-3) or Fever Hydrocodone Bitart/Acetaminophen 1 tab 01/05/25 09:51 01/05/25 21:26 Hydrocodone/Acetaminophen (*Crx) 5-325 Mg Tablet PO 1 tab Q6H PRN Administration Pain Rated 4-6 Aspirin 81 mg 12/20/24 08:00 01/06/25 08:00 Aspirin 81 Mg Chewable Tablet PO Not Given DAILY@0800 REGINA Calcium Carbonate 200 mg 12/18/24 22:39 01/05/25 23:56 Calcium Carbonate (Tums) 500 Mg (200 Mg Elemental) PO 200 mg Q6H PRN Administration Indigestion Dextrose 12.5 gm 12/17/24 22:39 Dextrose 50% 25 Gm/50 Ml Syringe IV PUSH PRN PRN Hypoglycemia Protocol Docusate Sodium 100 mg 12/23/24 21:00 01/06/25 09:00 Docusate Sodium 100 Mg Capsule PO Not Given Q12HR [facility] Ezetimibe 10 mg 12/18/24 09:00 01/06/25 09:00 Ezetimibe 10 Mg Tablet PO Not Given DAILY [facility] Glucagon 1 mg 12/17/24 22:39 Glucagon For Inj 1 Mg Vial IM PRN PRN Hypoglycemia Protocol Glucose 15 gm 12/17/24 22:39 Glucose Oral Gel 15 Gm Of Glucse In 37.5 Gm Tube PO PRN PRN Hypoglycemia Protocol Heparin Sodium (Porcine) 7,500 units 12/27/24 14:06 01/05/25 16:17 Heparin Sodium 5,000 Units/Ml Vial IV PUSH 7,500 units PRN PRN Administration aPTT less than 55 seconds Heparin Sodium (Porcine) 3,500 units 12/27/24 14:06 01/06/25 05:23 Heparin Sodium 5,000 Units/Ml Vial IV PUSH 3,500 units PRN PRN Administration aPTT 55 - 70 seconds Dextrose 1,000 mls @ 100 mls/hr 12/17/24 22:39 Dextrose 5% 1,000 Ml IVPB PRN PRN Hypoglycemia Protocol Albumin Human 50 mls @ 999 mls/hr 12/22/24 05:43 Albutein IVPB 01/21/25 05:42 Q10M PRN HYPOTENSION Heparin Sodium/Dextrose 25,000 units in 250 mls @ 0 mls/hr 12/27/24 14:10 01/06/25 06:52 Heparin Sodium/D5w 100 Units/Ml IV CONT 0 units/hr .Q0M REGINA 0 mls/hr Titration Protocol 0 UNITS/HR Amiodarone HCl/Dextrose 360 mg in 200 mls @ 33.333 mls/hr 01/06/25 15:07 Nexterone 360 Mg/D5w 200 Ml IV CONT 01/06/25 21:06 .Q6H ONE 1 MG/MIN Amiodarone HCl/Dextrose 360 mg in 200 mls @ 16.667 mls/hr 01/06/25 21:07 Nexterone 360 Mg/D5w 200 Ml IV CONT .Q12H REGINA 0.5 MG/MIN Insulin Aspart 2 - 5 units 12/29/24 12:00 01/06/25 13:00 Insulin Aspart (*Bkc) 100 Units/Ml SUB-Q Not Given TIDWM [facility] Protocol Insulin Aspart 2 - 5 units 12/29/24 21:00 01/05/25 21:20 Insulin Aspart (*Bkc) 100 Units/Ml SUB-Q Not Given HS [facility] Protocol Levothyroxine Sodium 250 mcg 12/21/24 06:30 01/06/25 05:35 Levothyroxine Sodium 125 Mcg Tablet PO Not Given [id number] REGINA Levothyroxine Sodium 125 mcg 12/26/24 06:30 01/02/25 06:02 Levothyroxine Sodium 125 Mcg Tablet PO 125 mcg Mitchell@0630 REGINA Administration Metoprolol Tartrate 50 mg 01/06/25 14:00 01/06/25 13:01 Metoprolol Tartrate 50 Mg Tab PO 50 mg Q6H REGINA Administration Multi-Ingred Cream/Lotion/Oil/Oint 1 applic 01/01/25 12:35 01/06/25 09:00 Eucerin Cream 120 Gm Jar TOPICAL 1 applic DAILY REGINA Administration Nicotine 1 patch 01/04/25 21:00 01/05/25 21:25 Nicotine (*Pbkc) 21 Mg Patch TRANSDERM 1 patch HS REGINA Administration Ondansetron HCl 4 mg 12/17/24 16:18 01/06/25 01:34 Ondansetron Inj 4 Mg/2 Ml Vial IV PUSH 4 mg Q4H PRN Administration Nausea Polyethylene Glycol 17 gm 01/03/25 09:00 01/06/25 09:00 Polyethylene Glycol 3350 17 Gm Powd.Pack PO Not Given QAM REGINA Quetiapine Fumarate 25 mg 12/31/24 21:00 01/05/25 21:19 Quetiapine Fumarate 25 Mg Tablet PO 25 mg HS REGINA Administration Sertraline HCl 100 mg 12/18/24 09:00 01/06/25 08:12 Sertraline Hcl 50 Mg Tablet PO 100 mg DAILY REGINA Administration Tamsulosin HCl 0.4 mg 01/05/25 21:00 01/05/25 21:13 Tamsulosin Hcl 0.4 Mg Capsule PO 0.4 mg HS REGINA Administration Vitamin D 1,000 units 12/31/24 09:00 01/06/25 09:00 Cholecalciferol 1,000 Units Tablet PO Not Given DAILY REGINA Radiology Results: ITS Impressions Lumbar Spine X-Ray 12/17/24 15:44 IMPRESSION: Anterior loss of volume of L1 which is most likely chronic. MRI evaluation advised. Otherwise, No acute osseous abnormality lumbar spine. Degenerative disc disease at the level of L4-L5. Venous Doppler Study 12/18/24 13:13 IMPRESSION: 1. No deep venous thrombosis. Abdomen Ultrasound 12/18/24 13:18 IMPRESSION: 1. Cholelithiasis. No evidence of acute cholecystitis. 2. Mildly dilated common duct. Renal Ultrasound 12/18/24 13:21 IMPRESSION: 1. Normal kidney sizes. No hydronephrosis. Lumbar Spine MRI 12/18/24 15:23 IMPRESSION: Limited examination secondary to motion artifact. No abnormal signal intensity or contrast enhancement is identified within the vertebral body of L1 to suggest acute traumatic injury. Within the visualized intervertebral disc spaces, moderate degenerative disease is noted, as detailed above. Duplex Scan Lower Extremity Artery 12/18/24 21:35 IMPRESSION: Abnormal peak systolic velocity and waveform morphology suggesting a popliteal or tibioperoneal trunk stenosis. Three-vessel blood flow into the right calf with single vessel blood flow into the right foot (on the submitted images) MRCP 12/21/24 08:48 IMPRESSION: 1. Study terminated at patient request prior to obtaining the normal complement of sequences including the MRCP images and which along with some motion artifact on the obtained sequences moderately limits evaluation. 2. Anasarca with small left and moderate-sized right pleural effusions, small amount of ascites and extensive body wall, as enteric and retroperitoneal edema. 3. Normal-appearing gallbladder with no evident cholelithiasis and with no intra or extrahepatic biliary ductal dilation. Sensitivity for tiny gallstones which were suggested on prior ultrasound is limited by motion artifact. 4. Cardiomegaly. Liver Biopsy Ultrasound 12/22/24 10:51 IMPRESSION: 1. Successful Ultrasound-guided random liver biopsy. Renal Biopsy Ultrasound 12/23/24 10:32 IMPRESSION: 1. Ultrasound-guided random left kidney core needle biopsy. Head CT 12/25/24 17:06 IMPRESSION: No acute intracranial process. Chest X-Ray 01/03/25 06:59 Impression: Mild pulmonary edema pattern with probable element of left lower lobe atelectasis. Small left pleural effusion. Right IJ line. Scrotum Ultrasound 01/05/25 15:10 IMPRESSION: Significant soft tissue swelling, without inherent testicular abnormality. Labs Labs: Laboratory Results - last 24 hr 01/05/25 01/05/25 01/05/25 16:19 20:27 22:30 APTT 78.0 H POC Capillary Glucose 76 189 H 01/06/25 01/06/25 01/06/25 04:43 07:53 11:34 APTT 62.9 H POC Capillary Glucose 136 H 144 H Quality VTE Prophylaxis VTE prophylaxis: pharmacologic ordered
--- NOTE | 2025-01-06 15:46 | PCPTNOTE ---
The patient treatment was not able to be completed due to patient out of room to have dialysis port placed . Will plan to continue treatment per plan of care.
[2025-01-06] MEDS: ceFAZolin 2 GM/D5W 50 ML 2 GM/50 ML BAG IVPB (16:08)
--- NOTE | 2025-01-06 16:10 | P.PNCA_ITS ---
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 He has new onset atrial fibrillation with RVR currently on metoprolol 50 mg t.i.d.. Chronic systolic heart failure with LVEF 20% (at 1 point LVEF improved to 40% however it is back to its previous 20%) -he appears euvolemic and compensated however unfortunately due to low blood pressure, he is no longer able to tolerate guideline directed medical therapy which could be indication of worsening disease. Also he has ELEANOR with creatinine more than 3 -volume control through hemodialysis which is new for him during this hospitalization -continue metoprolol Paroxysmal atrial fibrillation with RVR-asymptomatic -continue Eliquis -increased dose of metoprolol to 50 mg q.i.d. if blood pressure tolerates -if patient unable to get metoprolol due to hypotension, recommend starting amiodarone--> 300 mg IV bolus followed by 1 milligram/minute for 6 hours, then 0.5 milligram/minute for 18 hours Hyperlipidemia -statins on hold due to transaminitis -continue Zetia 10 mg p.o. 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 He currently no longer feels weak and denies any chest discomfort shortness of breath. No palpitations, dizziness, lightheadedness, presyncope, syncope, orthopnea, PND. He has chronic right leg swelling. He currently has no complaints. He has new onset atrial fibrillation with RVR. He has ELEANOR with creatinine greater than 3. He was scheduled to undergo tunneled line placement by surgery yesterday which was canceled due to AFib with RVR. Workup: TTE: LVEF severely depressed 25-30%, mild MR, mild TR, mild CO, moderate pulmonary hypertension with PASP of 45 mm Hg, small pericardial effusion. Interval history: No chest pain, shortness of breath, palpitations. Telemetry shows AFib with ventricular rates up to 120s with activity. He is scheduled for tunneled line placement with surgery today. Review of Systems Cardiovascular: Comments: As reported in the HPI Respiratory: Comments: As reported in the HPI Exam Narrative: General: Alert oriented x3, no acute distress Neck: Supple, no JVD Chest: Bilaterally clear to auscultation, no rales or rhonchi Cardiac: S1, S2 +, irregularly irregular rhythm, no murmurs or rubs Extremities: Right lower extremity edema 1 to 2+, no skin rash Neurologic: Alert and oriented x3, no focal neurological deficits Objective Data Vital Signs Vital Signs: Vital Signs - 24 hr 01/05/25 21:15 01/05/25 21:24 01/05/25 21:58 Temperature Pulse Rate 110 H 107 H Respiratory Rate Blood Pressure 101/79 Pulse Oximetry Oxygen Delivery 01/05/25 22:00 01/06/25 00:00 01/06/25 04:00 Temperature 36.5 C Pulse Rate 91 103 H 105 H Respiratory Rate 18 Blood Pressure 102/90 Pulse Oximetry 98 Oxygen Delivery 01/06/25 06:00 01/06/25 08:12 01/06/25 13:01 Temperature 36.4 C Pulse Rate 128 H 110 H 112 H Respiratory Rate 18 Blood Pressure 110/90 Pulse Oximetry 93 Oxygen Delivery 01/06/25 13:38 01/06/25 15:00 Temperature 36.1 C L 36.6 C Pulse Rate 112 H 92 Respiratory Rate 22 H 16 Blood Pressure 99/73 L 95/67 L Pulse Oximetry 93 99 Oxygen Delivery Room Air Intake/Output Intake/Output: Intake & Output 01/03/25 01/04/25 01/05/25 01/06/25 23:59 23:59 23:59 23:59 Intake Total 940.0 976.0 2050.0 222.2 Output Total 4599 341 6184 600 Balance -967.0 626 405.0 -377.8 Meds/Results Medications: Active Medications Generic Name Dose Route Start Last Admin Trade Name Freq PRN Reason Stop Dose Admin Acetaminophen 650 mg 12/31/24 12:08 Acetaminophen 650 Mg Suppository RECTAL Q6H PRN Mild Pain (1-3) or Fever Hydrocodone Bitart/Acetaminophen 1 tab 01/05/25 09:51 01/05/25 21:26 Hydrocodone/Acetaminophen (*Crx) 5-325 Mg Tablet PO 1 tab Q6H PRN Administration Pain Rated 4-6 Aspirin 81 mg 12/20/24 08:00 01/06/25 08:00 Aspirin 81 Mg Chewable Tablet PO Not Given DAILY@0800 REGINA Calcium Carbonate 200 mg 12/18/24 22:39 01/05/25 23:56 Calcium Carbonate (Tums) 500 Mg (200 Mg Elemental) PO 200 mg Q6H PRN Administration Indigestion Dextrose 12.5 gm 12/17/24 22:39 Dextrose 50% 25 Gm/50 Ml Syringe IV PUSH PRN PRN Hypoglycemia Protocol Docusate Sodium 100 mg 12/23/24 21:00 01/06/25 09:00 Docusate Sodium 100 Mg Capsule PO Not Given Q12HR REGINA Ezetimibe 10 mg 12/18/24 09:00 01/06/25 09:00 Ezetimibe 10 Mg Tablet PO Not Given DAILY REGINA Glucagon 1 mg 12/17/24 22:39 Glucagon For Inj 1 Mg Vial IM PRN PRN Hypoglycemia Protocol Glucose 15 gm 12/17/24 22:39 Glucose Oral Gel 15 Gm Of Glucse In 37.5 Gm Tube PO PRN PRN Hypoglycemia Protocol Heparin Sodium (Porcine) 7,500 units 12/27/24 14:06 01/05/25 16:17 Heparin Sodium 5,000 Units/Ml Vial IV PUSH 7,500 units PRN PRN Administration aPTT less than 55 seconds Heparin Sodium (Porcine) 3,500 units 12/27/24 14:06 01/06/25 05:23 Heparin Sodium 5,000 Units/Ml Vial IV PUSH 3,500 units PRN PRN Administration aPTT 55 - 70 seconds Dextrose 1,000 mls @ 100 mls/hr 12/17/24 22:39 Dextrose 5% 1,000 Ml IVPB PRN PRN Hypoglycemia Protocol Albumin Human 50 mls @ 999 mls/hr 12/22/24 05:43 Albutein IVPB 01/21/25 05:42 Q10M PRN HYPOTENSION Heparin Sodium/Dextrose 25,000 units in 250 mls @ 0 mls/hr 12/27/24 14:10 01/06/25 06:52 Heparin Sodium/D5w 100 Units/Ml IV CONT 0 units/hr .Q0M REGINA 0 mls/hr Titration Protocol 0 UNITS/HR Amiodarone HCl/Dextrose 360 mg in 200 mls @ 33.333 mls/hr 01/06/25 15:07 Nexterone 360 Mg/D5w 200 Ml IV CONT 01/06/25 21:06 .Q6H ONE 1 MG/MIN Amiodarone HCl/Dextrose 360 mg in 200 mls @ 16.667 mls/hr 01/06/25 21:07 Nexterone 360 Mg/D5w 200 Ml IV CONT .Q12H REGINA 0.5 MG/MIN Sodium Chloride 500 mls @ 30 mls/hr 01/06/25 16:10 Normal Saline Iv IV CONT .[id number] [facility] Insulin Aspart 2 - 5 units 12/29/24 12:00 01/06/25 13:00 Insulin Aspart (*Bkc) 100 Units/Ml SUB-Q Not Given TIDWM [facility] Protocol Insulin Aspart 2 - 5 units 12/29/24 21:00 01/05/25 21:20 Insulin Aspart (*Bkc) 100 Units/Ml SUB-Q Not Given HS [facility] Protocol Levothyroxine Sodium 250 mcg 12/21/24 06:30 01/06/25 05:35 Levothyroxine Sodium 125 Mcg Tablet PO Not Given MoTuWeThFrSa@0630 [facility] Levothyroxine Sodium 125 mcg 12/26/24 06:30 01/02/25 06:02 Levothyroxine Sodium 125 Mcg Tablet PO 125 mcg Mitchell@0630 [facility] Administration Metoprolol Tartrate 50 mg 01/06/25 14:00 01/06/25 13:01 Metoprolol Tartrate 50 Mg Tab PO 50 mg Q6H [facility] Administration Multi-Ingred Cream/Lotion/Oil/Oint 1 applic 01/01/25 12:35 01/06/25 09:00 Eucerin Cream 120 Gm Jar TOPICAL 1 applic DAILY REGINA Administration Nicotine 1 patch 01/04/25 21:00 01/05/25 21:25 Nicotine (*Pbkc) 21 Mg Patch TRANSDERM 1 patch HS REGINA Administration Ondansetron HCl 4 mg 12/17/24 16:18 01/06/25 01:34 Ondansetron Inj 4 Mg/2 Ml Vial IV PUSH 4 mg Q4H PRN Administration Nausea Polyethylene Glycol 17 gm 01/03/25 09:00 01/06/25 09:00 Polyethylene Glycol 3350 17 Gm Powd.Pack PO Not Given QAM REGINA Quetiapine Fumarate 25 mg 12/31/24 21:00 01/05/25 21:19 Quetiapine Fumarate 25 Mg Tablet PO 25 mg HS REGINA Administration Sertraline HCl 100 mg 12/18/24 09:00 01/06/25 08:12 Sertraline Hcl 50 Mg Tablet PO 100 mg DAILY REGINA Administration Tamsulosin HCl 0.4 mg 01/05/25 21:00 01/05/25 21:13 Tamsulosin Hcl 0.4 Mg Capsule PO 0.4 mg HS REGINA Administration Vitamin D 1,000 units 12/31/24 09:00 01/06/25 09:00 Cholecalciferol 1,000 Units Tablet PO Not Given DAILY REGINA Radiology Results: ITS Impressions Lumbar Spine X-Ray 12/17/24 15:44 IMPRESSION: Anterior loss of volume of L1 which is most likely chronic. MRI evaluation advised. Otherwise, No acute osseous abnormality lumbar spine. Degenerative disc disease at the level of L4-L5. Venous Doppler Study 12/18/24 13:13 IMPRESSION: 1. No deep venous thrombosis. Abdomen Ultrasound 12/18/24 13:18 IMPRESSION: 1. Cholelithiasis. No evidence of acute cholecystitis. 2. Mildly dilated common duct. Renal Ultrasound 12/18/24 13:21 IMPRESSION: 1. Normal kidney sizes. No hydronephrosis. Lumbar Spine MRI 12/18/24 15:23 IMPRESSION: Limited examination secondary to motion artifact. No abnormal signal intensity or contrast enhancement is identified within the vertebral body of L1 to suggest acute traumatic injury. Within the visualized intervertebral disc spaces, moderate degenerative disease is noted, as detailed above. Duplex Scan Lower Extremity Artery 12/18/24 21:35 IMPRESSION: Abnormal peak systolic velocity and waveform morphology suggesting a popliteal or tibioperoneal trunk stenosis. Three-vessel blood flow into the right calf with single vessel blood flow into the right foot (on the submitted images) MRCP 12/21/24 08:48 IMPRESSION: 1. Study terminated at patient request prior to obtaining the normal complement of sequences including the MRCP images and which along with some motion artifact on the obtained sequences moderately limits evaluation. 2. Anasarca with small left and moderate-sized right pleural effusions, small amount of ascites and extensive body wall, as enteric and retroperitoneal edema. 3. Normal-appearing gallbladder with no evident cholelithiasis and with no intra or extrahepatic biliary ductal dilation. Sensitivity for tiny gallstones which were suggested on prior ultrasound is limited by motion artifact. 4. Cardiomegaly. Liver Biopsy Ultrasound 12/22/24 10:51 IMPRESSION: 1. Successful Ultrasound-guided random liver biopsy. Renal Biopsy Ultrasound 12/23/24 10:32 IMPRESSION: 1. Ultrasound-guided random left kidney core needle biopsy. Head CT 12/25/24 17:06 IMPRESSION: No acute intracranial process. Chest X-Ray 01/03/25 06:59 Impression: Mild pulmonary edema pattern with probable element of left lower lobe atelectasis. Small left pleural effusion. Right IJ line. Scrotum Ultrasound 01/05/25 15:10 IMPRESSION: Significant soft tissue swelling, without inherent testicular abnormality. Labs Labs: Laboratory Results - last 24 hr 01/05/25 01/05/25 01/05/25 16:19 20:27 22:30 APTT 78.0 H POC Capillary Glucose 76 189 H 01/06/25 01/06/25 01/06/25 04:43 07:53 11:34 APTT 62.9 H POC Capillary Glucose 136 H 144 H
[2025-01-06] MEDS: LIDO 1%/EPINEPHRINE 1:100,000 50 ML VIAL 30 ML INFILTRATE (16:42)
[2025-01-06] MEDS: HEPARIN SODIUM, PORCINE 10,000 UNITS/10 ML VIAL 10 UNITS IV PUSH (16:56)
[2025-01-06] MEDS: HEPARIN SODIUM 5,000 UNITS/ML VIAL 5000 UNITS IRRIGATION (17:02)
[2025-01-06] MEDS: SODIUM CHLORIDE 0.9% IV 500 ML 30 ML IV CONT (17:24)
--- NOTE | 2025-01-06 17:45 | P.OP_ITS ---
Procedure Note - Detailed Date of Procedure 01/06/25 Pre-op Diagnosis End-stage renal disease on hemodialysis, inadequate venous access Post-op Diagnosis Same Procedure Performed Placement left internal jugular tunneled central venous catheter using ultrasound and under fluoroscopy Surgeon Ephraim Corona MD Production Intern Christina MCCARTY Anesthesia General (G IV S) Indications Patient has been in the hospital with worsening of chronic kidney disease such that he requires hemodialysis. He is receiving hemodialysis through a right internal jugular non tunneled central venous catheter. He pulled this out today. We were asked to place a tunneled central venous catheter for longer-te rm hemodialysis treatments. Findings Catheter tip in the distal SVC right atrial junction Description of Procedure Patient was taken to surgery and placed in a supine position. The left chest and left neck were prepped and draped. Using ultrasound, I was able to identify the left internal jugular vein. Local anesthetic was administered and the vein was cannulated with a single puncture. Dark venous blood returned. The guidewire passed through the cannula and into the vena cava. C-arm fluoroscopy confirmed that the catheter was in the inferior vena cava. I then used fluoroscopy to map out the pathway of a 36 cm tunneled central venous catheter on the patient's chest and neck. Counter incisions for the catheter and its course to the guidewire site were marked on the skin. Local anesthetic was infiltrated over each of these counter incisions. There were 2 counter incisions and the exit site of the guidewire. Incisions were made over both the counter incisions and at the exit site of the guidewire. The dura flow catheter was tunneled retrograde such that the end came out the same incision as the guidewire. Under fluoroscopy, I passed serial dilators over the guidewire, and then passed the introducer and sheath over the guidewire. The guidewire and introducer were removed. The into the catheter was passed through the sheath and into the vena cava. The sheath was then removed. Pressure was held as there was back bleeding from the neck. After a few minutes this back bleeding stopped. C-arm fluoroscopy showed that the catheter was in good position. There was a smooth curve in the catheter in the upper neck and the end was in the distal SVC right atrial junction. Both ports aspirated blood easily and flushed well with heparin. A final flush was administered to each port. I then used 4-0 Vicryl subcuticular suture to close all 3 of the incisions including t he exit site of the tunneled dura flow catheter. A hemostatic ring was also placed over this incision and around the catheter. The catheter was sutured to the skin with 3-0 nylon. The neck incisions were dressed with Exofin surgical adhesive. The catheter site was dressed with a Tegaderm. Patient was awakened and taken to recovery in good condition. Sponge needle counts were correct x2. Implants 36 cm tunneled dura flow catheter Estimated Blood Loss -20 Urine Output 300 Drains No Packing No Pathology None sent Complications None Condition Stable Disposition PACU [facility] Billing Surgery - Charge Forward: Surgery Billing (Left internal jugular vein placement tunneled dura flow central venous catheter using ultrasound and under fluoroscopy)
[2025-01-06 17:48] LABS: Glucose Point of Care 132 mg/dl (65-105)
--- NOTE | 2025-01-06 19:21 | PC.NURSE ---
Patient pulled newly placed tunnel cath out around 1844. Catheter was found in sheet on pillow. This nurse placed pressure to control bleeding. Covered with vasaline gauze, two 4x4s, and large Tegaderm. Dr. Corona and house worker were notified.
[2025-01-06] MEDS: HYDROcodone/acetaminophen (*CRX) 5-325 MG TABLET 1 TAB PO (20:20)
[2025-01-06 20:37] LABS: Glucose Point of Care 125 mg/dl (65-105)
[2025-01-07] VITALS: PULSE 114
[2025-01-07] MEDS: OLANZapine 10 MG INJ VIAL IM (01:08)
[2025-01-07] MEDS: HYDROcodone/acetaminophen (*CRX) 5-325 MG TABLET 1 TAB PO ×2 (04:50→13:34)
[2025-01-07 05:05] LABS: Glucose Point of Care 137 mg/dl (65-105)
[2025-01-07 06:15] VITALS: BP 101/78; PULSE 112; RESP 18; TEMP 36.2; O2SAT 100
[2025-01-07] MEDS: LEVOTHYROXINE SODIUM 125 MCG TABLET 250 MCG PO (06:17)
[2025-01-07 08:16] LABS: Glucose Point of Care 118 mg/dl (65-105)
[2025-01-07] MEDS: METOPROLOL TARTRATE 50 MG TAB PO ×2 (08:45→13:34)
[2025-01-07] MEDS: SERTRALINE HCL 50 MG TABLET 100 MG PO (08:45)
[2025-01-07] MEDS: EUCERIN CREAM 120 GM JAR 1 APPLIC TOPICAL (09:00)
--- NOTE | 2025-01-07 09:46 | P.PNNP_ITS ---
Progress Note: A&P Assessment and Plan (1) Acute kidney injury: Code(s): N17.9 - Acute kidney failure, unspecified Status: Acute Assessment and Plan: * as noted on admission * evaluation to date noted: * renal u/s normal * urine eosinophils negative * nephrotic range proteinuria * prerenal urine electrolytes * CPK mildly elevated (but not enought to affect kidney function) * further serologies pending * outpatient evaluation noted - normal complements but hematuria with positive * initiated CARROT BUNCHER/HD on 12/21/24 * s/p RENAL BIOPSY (on 12/22) with findings noted: * diabetic nephropathy/glomerulosclerosis (class IV) * significant interstitial fibrosis/tubular atrophy noted as well * fluctuating urine output noted * however, BUN + creatinine continue to rise without dialytic support * no dialysis access as of now - pulled out recently placed tunneled HD catheter... (2) Stage 3b chronic kidney disease: Code(s): N18.32 - Chronic kidney disease, stage 3b Status: Chronic Assessment and Plan: * baseline creatinine runs around 1.7 - 2.3mg/dl * secondary to diabetes (as noted by renal biopsy) and hypertension (3) Pneumonia: Code(s): J18.9 - Pneumonia, unspecified organism Status: Acute Assessment and Plan: * admission CXR with bibasilar infiltrates * completed course of antibiotics * respiratory status stable (4) Heart failure with mildly reduced ejection fraction: Code(s): I50.22 - Chronic systolic (congestive) heart failure Status: Acute Assessment and Plan: * known history * repeat Echo (12/18) noted: * severely reduced systolic function with EF 25-30% * diastolic dysfunction * mild valvular disease * moderate pulmonary hypertension * CXR with cardiomegaly, bibasilar infiltrates and small pleural effusions * Entresto and diuretics on hold given #1 * removing fluid with dialysis * not opposed to re-start entresto if BP can tolerate * Cardiology following (5) Encephalopathy: Code(s): G93.40 - Encephalopathy, unspecified Status: Acute Assessment and Plan: * was doing better but seems to have worsened in the last 24 - 48 hours * doubt uremia playing a role given improvement in BUN * testing to date noted: * ammonia level is okay * B12 and folate are okay * WBC okay and no fevers so unlikely to be related to infection * aodium good * magnesium and calcium stable * CT of brain normal * ABGs reasonable * Neurology recommendations noted (6) Atrial flutter with rapid ventricular response: Code(s): I48.92 - Unspecified atrial flutter Status: Acute Assessment and Plan: * rate control strategy * on heparin gtt for anticoagulation * eventual plan to transition to oral anticoagulation (7) Transaminitis: Code(s): R74.01 - Elevation of levels of liver transaminase levels Status: Resolved Assessment and Plan: * resolving if not resolved * normal earlier in November 2024 * hepatitis panel negative * abd US showing cholelithiasis and mildly dilated CBD; liver is normal in appearance * holding statin * liver biopsy (on 12/21) noted: * congestive hepatopathy and congestive hepatic fibrosis (8) Anemia: Code(s): D64.9 - Anemia, unspecified Status: Acute Assessment and Plan: * related to ELEANOR, CKD, and acute illness * Epogen with HD as needed * follow trend of H/H (9) Peripheral vascular disease: Code(s): I73.9 - Peripheral vascular disease, unspecified Status: Acute Assessment and Plan: * known history * on zetia but statin on hold given previous elevated LFTs * complicated by ongoing smoking * arterial dopplers noted (10) Diabetes mellitus type 2 with complications: Code(s): E11.8 - Type 2 diabetes mellitus with unspecified complications Status: Chronic Assessment and Plan: * follow accu-cheks * glycemic control per hospitalist Noted plans for family meeting/conference to discuss goals of therapy/plan of care given patient's fluctuating clinical status since admission with no significant improvement despite maximized medical therapy; has self dc'd dialysis catheter x 2 and his mental status is only stable when he receives sedating medications. Will hold further dialysis treatments/interventions until results of family meeting are noted. Will continue to follow. L Subjective Date/time seen: 01/07/25 09:46 Interval history: Follow-up for acute kidney injury/acute renal failure on chronic kidney disease. Events noted yesterday -- pulled out temporary RIJ dialysis catheter; s/p tunneled LIJ dialysis catheter placed in OR later in the afternoon but patient apparently pulled this out afterwards as well; significant agitation/confusion in association with active hallucinations along with screaming/yelling throughout the evening -- IM Zyprexa given which seemed to calm the patient down and allowed him to rest; nursing reports planned family meeting later today to discuss goals of therapy/plan of care given the patient ongoing deteriorating status despite aggressive medical therapy to date. Exam 2 Narrative: General: elderly male in NAD Heart: tachycardic; normal S1 and S2; no rub Lungs: clear anteriorly; decreased at bases Abdomen: obese but soft, nontender, nondistended, positive bowel sounds Extremities: no cyanosis or clubbing; trace edema in RLE; s/p left AKA Skin: no nodules Objective Data Vital Signs Vital Signs: Vital Signs Temp Pulse Resp BP Pulse Ox O2 Del Method O2 Flow Rate 01/07/25 08:00 Room Air 01/07/25 06:15 97.2 F L 112 H 18 101/78 100 01/07/25 00:00 114 H 01/06/25 23:50 107 H 90/73 L 99 01/06/25 22:23 96.7 F L 112 H 18 93/72 L 90 01/06/25 22:00 110 H 01/06/25 18:00 106 H 18 98/75 L 100 Nasal Cannula 3 01/06/25 17:45 101 H 20 90/74 L 100 Nasal Cannula 3 Intake/Output Intake/Output: Intake & Output 01/04/25 01/05/25 01/06/25 01/07/25 23:59 23:59 23:59 23:59 Intake Total 976.0 2050.0 272.2 Output Total 350 1645 1150 Balance 626 405.0 -877.8 Meds/Results Medications: Active Medications Generic Name Dose Route Start Last Admin Trade Name Freq PRN Reason Stop Dose Admin Acetaminophen 650 mg 12/31/24 12:08 Acetaminophen 650 Mg Suppository RECTAL Q6H PRN Mild Pain (1-3) or Fever Hydrocodone Bitart/Acetaminophen 1 tab 01/05/25 09:51 01/07/25 13:34 Hydrocodone/Acetaminophen (*Crx) 5-325 Mg Tablet PO 1 tab Q6H PRN Administration Pain Rated 4-6 Aspirin 81 mg 12/20/24 08:00 01/07/25 08:47 Aspirin 81 Mg Chewable Tablet PO Not Given DAILY@0800 REGINA Atropine Sulfate 1 - 2 drop 01/07/25 14:20 Atropine Sulfate 1% Ophth Soln 5 Ml Bottle SUBLINGUAL Q4H PRN Secretions Calcium Carbonate 200 mg 12/18/24 22:39 01/05/25 23:56 Calcium Carbonate (Tums) 500 Mg (200 Mg Elemental) PO 200 mg Q6H PRN Administration Indigestion Dextrose 12.5 gm 12/17/24 22:39 Dextrose 50% 25 Gm/50 Ml Syringe IV PUSH PRN PRN Hypoglycemia Protocol Docusate Sodium 100 mg 12/23/24 21:00 01/07/25 08:47 Docusate Sodium 100 Mg Capsule PO Not Given Q12HR REGINA Ezetimibe 10 mg 12/18/24 09:00 01/07/25 08:47 Ezetimibe 10 Mg Tablet PO Not Given DAILY REGINA Epoetin Oscar-epbx 10,000 units 01/07/25 19:18 Epoetin Oscar-Epbx 10,000 Units/Ml Vial IV PUSH 01/07/25 19:19 ONCE ONE Glucagon 1 mg 12/17/24 22:39 Glucagon For Inj 1 Mg Vial IM PRN PRN Hypoglycemia Protocol Glucose 15 gm 12/17/24 22:39 Glucose Oral Gel 15 Gm Of Glucse In 37.5 Gm Tube PO PRN PRN Hypoglycemia Protocol Heparin Sodium (Porcine) 7,500 units 12/27/24 14:06 01/05/25 16:17 Heparin Sodium 5,000 Units/Ml Vial IV PUSH 7,500 units PRN PRN Administration aPTT less than 55 seconds Heparin Sodium (Porcine) 3,500 units 12/27/24 14:06 01/06/25 05:23 Heparin Sodium 5,000 Units/Ml Vial IV PUSH 3,500 units PRN PRN Administration aPTT 55 - 70 seconds Dextrose 1,000 mls @ 100 mls/hr 12/17/24 22:39 Dextrose 5% 1,000 Ml IVPB PRN PRN Hypoglycemia Protocol Albumin Human 50 mls @ 999 mls/hr 12/22/24 05:43 Albutein IVPB 01/21/25 05:42 Q10M PRN HYPOTENSION Heparin Sodium/Dextrose 25,000 units in 250 mls @ 0 mls/hr 12/27/24 14:10 01/06/25 06:52 Heparin Sodium/D5w 100 Units/Ml IV CONT 0 units/hr .Q0M REGINA 0 mls/hr Titration Protocol 0 UNITS/HR Insulin Aspart 2 - 5 units 12/29/24 12:00 01/07/25 12:00 Insulin Aspart (*Bkc) 100 Units/Ml SUB-Q Not Given TIDWM [facility] Protocol Insulin Aspart 2 - 5 units 12/29/24 21:00 01/07/25 06:49 Insulin Aspart (*Bkc) 100 Units/Ml SUB-Q Not Given HS [facility] Protocol Levothyroxine Sodium 250 mcg 12/21/24 06:30 01/07/25 06:17 Levothyroxine Sodium 125 Mcg Tablet PO 250 mcg [id number] REGINA Administration Levothyroxine Sodium 125 mcg 12/26/24 06:30 01/02/25 06:02 Levothyroxine Sodium 125 Mcg Tablet PO 125 mcg Mitchell@0630 [facility] Administration Lorazepam 2 mg 01/07/25 14:20 Lorazepam Inj (*Crx) 2 Mg/Ml Vial IV PUSH Q2H PRN Anxiety/Comfort Metoprolol Tartrate 50 mg 01/06/25 14:00 01/07/25 13:34 Metoprolol Tartrate 50 Mg Tab PO 50 mg Q6H REGINA Administration Morphine Sulfate 2 mg 01/07/25 14:20 01/07/25 15:10 Morphine Sulfate (*Crx) 2 Mg/Ml Inj IV PUSH 2 mg Q30M PRN Administration COMFORT Multi-Ingred Cream/Lotion/Oil/Oint 1 applic 01/01/25 12:35 01/07/25 09:00 Eucerin Cream 120 Gm Jar TOPICAL 1 applic DAILY REGINA Administration Nicotine 1 patch 01/04/25 21:00 01/06/25 23:40 Nicotine (*Pbkc) 21 Mg Patch TRANSDERM Not Given HS [facility] Ondansetron HCl 4 mg 12/17/24 16:18 01/06/25 01:34 Ondansetron Inj 4 Mg/2 Ml Vial IV PUSH 4 mg Q4H PRN Administration Nausea Polyethylene Glycol 17 gm 01/03/25 09:00 01/07/25 08:47 Polyethylene Glycol 3350 17 Gm Powd.Pack PO Not Given QAM [facility] Quetiapine Fumarate 25 mg 12/31/24 21:00 01/06/25 23:40 Quetiapine Fumarate 25 Mg Tablet PO Not Given HS REGINA Sertraline HCl 100 mg 12/18/24 09:00 01/07/25 08:45 Sertraline Hcl 50 Mg Tablet PO 100 mg DAILY REGINA Administration Tamsulosin HCl 0.4 mg 01/05/25 21:00 01/06/25 23:40 Tamsulosin Hcl 0.4 Mg Capsule PO Not Given HS [facility] Vitamin D 1,000 units 12/31/24 09:00 01/07/25 08:47 Cholecalciferol 1,000 Units Tablet PO Not Given DAILY REGINA Radiology Results: ITS Impressions Lumbar Spine X-Ray 12/17/24 15:44 IMPRESSION: Anterior loss of volume of L1 which is most likely chronic. MRI evaluation advised. Otherwise, No acute osseous abnormality lumbar spine. Degenerative disc disease at the level of L4-L5. Venous Doppler Study 12/18/24 13:13 IMPRESSION: 1. No deep venous thrombosis. Abdomen Ultrasound 12/18/24 13:18 IMPRESSION: 1. Cholelithiasis. No evidence of acute cholecystitis. 2. Mildly dilated common duct. Renal Ultrasound 12/18/24 13:21 IMPRESSION: 1. Normal kidney sizes. No hydronephrosis. Lumbar Spine MRI 12/18/24 15:23 IMPRESSION: Limited examination secondary to motion artifact. No abnormal signal intensity or contrast enhancement is identified within the vertebral body of L1 to suggest acute traumatic injury. Within the visualized intervertebral disc spaces, moderate degenerative disease is noted, as detailed above. Duplex Scan Lower Extremity Artery 12/18/24 21:35 IMPRESSION: Abnormal peak systolic velocity and waveform morphology suggesting a popliteal or tibioperoneal trunk stenosis. Three-vessel blood flow into the right calf with single vessel blood flow into the right foot (on the submitted images) MRCP 12/21/24 08:48 IMPRESSION: 1. Study terminated at patient request prior to obtaining the normal complement of sequences including the MRCP images and which along with some motion artifact on the obtained sequences moderately limits evaluation. 2. Anasarca with small left and moderate-sized right pleural effusions, small amount of ascites and extensive body wall, as enteric and retroperitoneal edema. 3. Normal-appearing gallbladder with no evident cholelithiasis and with no intra or extrahepatic biliary ductal dilation. Sensitivity for tiny gallstones which were suggested on prior ultrasound is limited by motion artifact. 4. Cardiomegaly. Liver Biopsy Ultrasound 12/22/24 10:51 IMPRESSION: 1. Successful Ultrasound-guided random liver biopsy. Renal Biopsy Ultrasound 12/23/24 10:32 IMPRESSION: 1. Ultrasound-guided random left kidney core needle biopsy. Head CT 12/25/24 17:06 IMPRESSION: No acute intracranial process. Scrotum Ultrasound 01/05/25 15:10 IMPRESSION: Significant soft tissue swelling, without inherent testicular abnormality. Chest X-Ray 01/06/25 17:46 IMPRESSION: Cardiomegaly with cardiac decompensation and pulmonary edema. Superimposed pneumonia is not excluded. Left pleural effusion. Central Venous Line 01/07/25 07:58 IMPRESSION: Fluoroscopy used during central line placement. Labs Labs: Laboratory Tests 01/07/25 10:38 01/07/25 10:38 Lactic Acid 1.8 Calcium 8.1 L Magnesium 2.0 Total Bilirubin 1.0 AST 44 ALT 59 H Alkaline Phosphatase 128 H Ammonia < 9 L Total Protein 6.0 L Albumin 2.9 L
[2025-01-07 10:45] LABS: Basophils Absolute Auto 0.1 K/mm3 (0.0-0.1); Eosinophils Absolute Auto 0.1 K/mm3 (0-0.3); Eosinophils Percent Auto 1.3 % (0-4.4); Hematocrit 39.1 % (42.0-52.0); Hemoglobin 10.8 g/dL (14.0-18.0); Immature Granulocyte Absolute 0.04 K/mm3 (0.00-0.031); Immature Granulocyte Percent A 0.5 % (0-0.5); Lymphocytes Absolute Auto 1.89 K/mm3 (0.9-3.2); Lymphocytes Percent Auto 22.8 % (18.3-44.2); Mean Corpuscular HGB Conc 27.6 g/dl (32-36); Mean Corpuscular Hemoglobin 23.8 pg (26-34); Mean Corpuscular Volume 86.3 fl (80-100); Mean Platelet Volume 10.3 fl (7.4-10.4); Monocytes Percent Auto 12.4 % (2.6-8.5); Neutrophils Absolute Auto 5.1 K/mm3 (1.3-6.7); Nucleated Red Blood Cells Perc 0.8 % (0.0-0.2); Platelet Count Result 216 k/mm3 (150-375); Red Blood Count 4.53 M/mm3 (4.6-6.20); Red Cell Distribution Width 18.6 % (11.5-14.5); White Blood Count 8.3 K/mm3 (4.5-10.0)
[2025-01-07 10:55] LABS: Alanine Aminotransferase 59 U/L (6-50); Albumin Level 2.9 g/dL (3.5-5.1); Alkaline Phosphatase 128 U/L (38-126); Anion Gap 10 mmol/L (4-12); Aspartate Amino Transferase 44 U/L (17-59); Blood Urea Nitrogen 38 mg/dL (9-20); Calcium 8.1 mg/dL (8.4-10.2); Carbon Dioxide 25 mmol/L (22-30); Chloride 100 mmol/L (98-107); Estimated CRCL calculation 27 ml/min; Estimated Glomerular Filt Rate 18; Glucose 104 mg/dL (65-110); Potassium 5.2 mmol/L (3.4-5.0); Sodium 135 mmol/L (137-145)
[2025-01-07 10:56] LABS: Lactic Acid Reflex 1.8 mmol/L (0.7-2.0)
[2025-01-07 10:57] LABS: Ammonia < 9 umol/L (9-30)
[2025-01-07 11:29] LABS: Anisocytosis 1+; Burr Cells 1+; Hypochromasia 1+; Ovalocytes 1+; Platelet Estimate Adequate (Adequate); Polychromasia 1+; Schistocytes None Seen
--- NOTE | 2025-01-07 11:31 | PCPTNOTE ---
PT was attempted and pt refused participation stating that his catheter site was too painful. Will cont per POC.
[2025-01-07 11:55] LABS: Glucose Point of Care 103 mg/dl (65-105)
[2025-01-07 12:00] VITALS: PULSE 85
--- NOTE | 2025-01-07 12:47 | PCNFU ---
Nutrition Follow-Up Complete: Increased protein energy needs related to hemodialysis, as evidenced by labs, intakes 5-100% Adequate PO intake at least 75% meals and supplements - Slow progress to goal. Continue with goal Goal: Pt current nutrition is NPO for placement of tunneled catheter. Nutrition recommendation: Resume diet after procedure: Renal diet, minced & moist L5, Enure Enlive BID (350 kcal, 20 g pro), nutritional ice cream BID (270 kcal, 9 g protein) Last recorded weight is 110.4 kg. Bowel Motility: No BMS are recorded Labs Reviewed: Hgb 10.8, Hct 39.1, Alb 2.9, Na 135, K+ 5.2, BUN 38, Cre 3.42 Meds Noted: Seroquel Skin: No pressure injuries. Scratches Additional Notes: Pt pulled out tunneled dialysis cath overnight and had to get it replaced today. Intakes were improving prior to NPO. COntinue to monitor Monitoring intakes, labs, weights, diet orders, plan of care Follow up in 5 days
[2025-01-07 13:34] VITALS: PULSE 95
[2025-01-07 14:00] VITALS: BP 97/68; PULSE 85; RESP 18; TEMP 36.1; O2SAT 99
[2025-01-07] MEDS: LORazepam INJ (*CRX) 2 MG/ML VIAL IV PUSH ×2 (14:29→20:18)
[2025-01-07] MEDS: MORPHINE SULFATE (*CRX) 2 MG/ML INJ IV PUSH ×2 (14:30→15:10)
--- NOTE | 2025-01-07 18:46 | P.PNIM_ITS ---
Progress Note: A&P Assessment and Plan (1) Altered mental status: Code(s): R41.82 - Altered mental status, unspecified Status: Acute Assessment and Plan: * Patient has developed confused since 12/25/2024. He was receiving ativan and haldol prn for agitation * Ammonia negative * ABG unremarkable. B12 normal. TSH as mentioned below. Vit D <12.8 * CT head unremarkable. CXR showing small left and small-mod right pleural effusion with associated atelectasis and/or PNA * UA noted so started empirically on ceftriaxone * BCx (12/25) NGTD. UCx 12/25 negative so Rocephin stopped. * EEG 12/28 - abnormal record due to the absence of a normal background rhythm but without evidence of paroxysmal activity * Stopped all of his sedating mediations and Seroquel added * Mental status better. Continue to hold all sedating medications. Continue Seroquel at night. * Increase activity and try to keep awake most of the day (2) Abnormal transaminases: Code(s): R74.8 - Abnormal levels of other serum enzymes Status: Acute Assessment and Plan: * On admission, LFTs were mildly elevated. Hepatitis panel negative. Abd US showing cholelithiasis and mildly dilated CBD. Liver was normal in appearance. Lipitor held. Repeat levels on 12/20 much worse with AST 1539, ALT 1066, AP 479, normal bili. Lactic acid 1.1. Acet level <10. Carmichaels due to congestion from heart failure * Consider autoimmune with + * IV fluids stopped. GI consulted and appreciate their input. * Patient was able to complete some of the MRCP. This showed anasarca, small left and moderate size right pleural effusion, small amount of ascites, extensive body edema and cardiomegaly. He had a normal appearing gallbladder with no evidence of cholelithiasis no intra or extrahepatic biliary ductal dilatation. Sensitivity was limited. * Status post liver biopsy 12/22/2024: congestive hepatopathy and congestive h epatic fibrosis score 1. * LFTs improving. Carmichaels related to hepatic congestion. Follow. (3) Acute kidney injury: Code(s): N17.9 - Acute kidney failure, unspecified Status: Acute Assessment and Plan: * Patient presents with weakness and may have had underlying PNA. * Cr on admission 4.3. Baseline Cr 2.1-2.9 range. He was started on IV fluids. * Urine eos negative. Eve 42. Total CK 371. Urine prot/Cr 4.7gm consistent with nephrotic syndrome. * Complement normal. Hx of + 1:640. Renal US normal. * Nephrology consulted and appreciate their input. Cryoglobulin negative. * Creatinine was trending up; HD catheter placement 12/22/2024 and was started on hemodialysis. * Renal biopsy 12/23/2024 with advanced diabetic glomerulosclerosis class 4. 50-60% tubular atrophy and interstitial fibrosis. * Last dialysis today 01/03/2025 * UOP poor. Cr rising. * Appreciate nephrology input. Discussed with nephrology. * Tunneled cath being planned. (4) Pneumonia: Code(s): J18.9 - Pneumonia, unspecified organism Status: Acute Assessment and Plan: * Patient presents with weakness after having cold and cough symptoms for 3 weeks. No benefit after 2 Z-packs. * CXR showing bibasilar infiltrates. No fevers or hypoxia. WBC 12K. * He was started on Rocephin and Doxycycline. * WBC normal now. BCx NGTD. MRSA screen negative. * Urine Ag negative. Sputum Cx growing MSSA and yeast. * He completed a 7 day course. Rocephin restarted for possible UTI but UCx negative so stopped. * Follow off abx (last dose of Rocephin was 12/29 at 1215) (5) Heart failure with mildly reduced ejection fraction: Code(s): I50.22 - Chronic systolic (congestive) heart failure Status: Acute Assessment and Plan: * Echo showing severely reduced systolic fxn with EF 25-30% with diastolic dysfunction, mild valve disease and moderate pulmonary HTN. BNP >30K. * CXR showing CMG, bibasilar infiltrates and small pleural effusions. * Entresto and finerenone on hold. Diuretics not listed on home med list. * Holding Entresto. * Monitor UOP, renal fxn, daily weights and fluid balance. (6) Atrial flutter with rapid ventricular response: Code(s): I48.92 - Unspecified atrial flutter Status: Acute Assessment and Plan: * New onset atrial fibrillation. On metoprolol. * On heparin drip for now. Change to Eliquis when able * HR poorly controlled. Advance metoprolol. * Monitor HR (7) Type 2 diabetes mellitus with hyperglycemia, with long-term current use of insulin: Code(s): E11.65 - Type 2 diabetes mellitus with hyperglycemia; Z79.4 - detention (current) use of insulin Status: Acute Assessment and Plan: * A1c 7%. The patient's blood glucose was reviewed * Patient was on an insulin pump at home. Concern patient was unable to handle his pump here so this was held. * Glucose remains well controlled off the insulin pump despite his improved eating habit * Continue AccuCheks covering with sliding scale. Hypoglycemia protocol available as needed. * Continue to monitor (8) Chronic kidney disease, stage 4 (severe): Code(s): N18.4 - Chronic kidney disease, stage 4 (severe) Status: Acute Assessment and Plan: As above (9) Status post above-knee amputation of left lower extremity: Code(s): Z89.612 - Acquired absence of left leg above knee Status: Acute Assessment and Plan: * Patient with known PAD. Venous doppler RLE negative for DVT. * Arterial doppler RLE suggestive of a popliteal or tibioperoneal trunk stenosis. There is three-vessel blood flow into the right calf with single vessel blood flow into the right foot. * Continue Zetia and ASA. Resume Lipitor when able. Plan # Hypothyroidism: Review of Endocrine note from 11/12 showing he was to skip the Friday Synthroid dose. TSH is 46.4. Free T4 is low-normal at 0.96. Total T3 is 0.5. Patient is currently on 250 mcg daily except no meds on Friday. Suspect the skipped dose has resulted in the change in his thyroid panel. Will adjust to 250mcg daily except added 125mcg on Sundays. # Tobacco dependence: Patient was educated about the benefits of smoking cessation # urinary retention status post cystoscopy with passive dilation of mild bulbar narrowing. Complex Hernandez catheter placement with 16 Armenian coude on 12/20/2024. Maintain Hernandez catheter until improvement in volume status and mobility. # Low back pain - Lumbar MRI performed but no acute finding seen on limited imaging due to motion artifact. # meth abuse - Possible meth abuse to explain some of his mental status confusion prior to admission. Will discuss when patient more awake and alert. 64 y/o male with CKD with worsening urine output and serum BUN and creatinine are rising, patient developed agitation and was treated with Ativan and Haldol as well as receiving pain medication as needed however patient became confused and suspect most likely 2/2 sedating medications he had been receiving, these medications are on hold now patient is given Seroquel for sleep, patient is seen by his equipment superintendent [employer] was started on 12/21 and has temporary cath, patient is seen by surgery service and was planned to have tunnel catheter today however it is postponed until tomorrow, today patient is little more oriented and cooperative but upset as patient wish to go home, patient is schedule to have tunneled dialysis catheter today, will monitor and follow up. before patient can be discharge patient will need outpatient dialysis arrangement with a dialysis center, patient also developed new onset A.Fib with RVR seen by seed mill superintendent started on metoprolol now rate is under control however patient blood pressure is elevated and metoprolol was increased, being anticoagulated with heparin due to pending surgery, may switch to oral anticoagulation. Patient remain confused and he again pulled out his dialysis tunnel catheter which just was placed yesterday this is the second catheter he pulled out, today patient POA and intensive care specialist day a meeting and I was present. Patient care manger has placed DNR order and placed patient under comfort measure and no medical intervention. I have placed DNR and comfort measures order for the patient. # DVT prophylaxis - Heparin # Code status - full Subjective Date/time seen: 01/07/25 18:47 Interval history: Patient refusing dialysis this morning and later agreed. Patient denies chest pain, palpitations, headache, dizziness, nausea, or vomiting. Spoke with sister Ruby and she stated that they wanted patient transferred to [facility] or she would not mind [place], she felt that doctors were not doing what they should. Ruby mentioned ex is the POA and will be coming up to the hospital. Patient when he returned from dialysis was wanting a ride home and stated he does not want to go to [facility]. Nurse reports that ex was good with care here. 64 y/o male with CKD with worsening urine output and serum BUN and creatinine are rising, patient developed agitation and was treated with Ativan and Haldol as well as receiving pain medication as needed however patient became confused and suspect most likely 2/2 sedating medications he had been receiving, these medications are on hold now patient is given Seroquel for sleep, patient is seen by his equipment superintendent [employer] SAMPLER-HD was started on 12/21 and has temporary cath, patient is seen by surgery service and was planned to have tunnel catheter today however it is postponed until tomorrow, today patient is little more oriented and cooperative but upset as patient wish to go home, patient is schedule to have tunneled dialysis catheter today, will monitor and follow up. before patient can be discharge patient will need outpatient dialysis arrangement with a dialysis center, patient also developed new onset A.Fib with RVR seen by seed mill superintendent started on metoprolol now rate is under control however patient blood pressure is elevated and metoprolol was increased, being anticoagulated with heparin due to pending surgery, may switch to oral anticoagulation. Patient remain confused and he again pulled out his dialysis tunnel catheter which just was placed yesterday this is the second catheter he pulled out, today patient POA and intensive care specialist day a meeting and I was present. Patient care quentin lorenzo has placed DNR order and placed patient under comfort measure and no medical intervention. I have placed DNR and comfort measures order for the patient. Review of Systems Review of Systems: ROS unobtainable: Yes unobtainable due to mental status Exam Narrative: Patient is comfortable, NAD HEENT: eyes are clear and none icteric LUNGS:CTA HEART: RR S1S2 ABD: BS+, Soft and nontender Lower extremities: no edema SKIN: nonjaundiced Neuro: grossly intact. Objective Data Vital Signs Vital Signs: Vital Signs - 24 hr 01/06/25 22:00 01/06/25 22:23 01/06/25 23:50 Temperature 35.9 C L Pulse Rate 110 H 112 H 107 H Respiratory Rate 18 Blood Pressure 93/72 L 90/73 L Pulse Oximetry 90 99 Oxygen Delivery 01/07/25 00:00 01/07/25 06:15 01/07/25 08:00 Temperature 36.2 C L Pulse Rate 114 H 112 H Respiratory Rate 18 Blood Pressure 101/78 Pulse Oximetry 100 Oxygen Delivery Room Air 01/07/25 12:00 01/07/25 13:34 01/07/25 14:00 Temperature 36.1 C L Pulse Rate 85 95 85 Respiratory Rate 18 Blood Pressure 97/68 L Pulse Oximetry 99 Oxygen Delivery Intake/Output Intake/Output: Intake & Output 01/04/25 01/05/25 01/06/25 01/07/25 23:59 23:59 23:59 23:59 Intake Total 976.0 2050.0 272.2 Output Total 350 1645 1150 100 Balance 626 405.0 -877.8 -100 Meds/Results Medications: Active Medications Generic Name Dose Route Start Last Admin Trade Name Freq PRN Reason Stop Dose Admin Acetaminophen 650 mg 12/31/24 12:08 Acetaminophen 650 Mg Suppository RECTAL Q6H PRN Mild Pain (1-3) or Fever Hydrocodone Bitart/Acetaminophen 1 tab 01/05/25 09:51 01/07/25 13:34 Hydrocodone/Acetaminophen (*Crx) 5-325 Mg Tablet PO 1 tab Q6H PRN Administration Pain Rated 4-6 Aspirin 81 mg 12/20/24 08:00 01/07/25 08:47 Aspirin 81 Mg Chewable Tablet PO Not Given DAILY@0800 [facility] Atropine Sulfate 1 - 2 drop 01/07/25 14:20 Atropine Sulfate 1% Ophth Soln 5 Ml Bottle SUBLINGUAL Q4H PRN Secretions Calcium Carbonate 200 mg 12/18/24 22:39 01/05/25 23:56 Calcium Carbonate (Tums) 500 Mg (200 Mg Elemental) PO 200 mg Q6H PRN Administration Indigestion Dextrose 12.5 gm 12/17/24 22:39 Dextrose 50% 25 Gm/50 Ml Syringe IV PUSH PRN PRN Hypoglycemia Protocol Docusate Sodium 100 mg 12/23/24 21:00 01/07/25 08:47 Docusate Sodium 100 Mg Capsule PO Not Given Q12HR [facility] Ezetimibe 10 mg 12/18/24 09:00 01/07/25 08:47 Ezetimibe 10 Mg Tablet PO Not Given DAILY [facility] Epoetin Oscar-epbx 10,000 units 01/07/25 19:18 Epoetin Oscar-Epbx 10,000 Units/Ml Vial IV PUSH 01/07/25 19:19 ONCE ONE Glucagon 1 mg 12/17/24 22:39 Glucagon For Inj 1 Mg Vial IM PRN PRN Hypoglycemia Protocol Glucose 15 gm 12/17/24 22:39 Glucose Oral Gel 15 Gm Of Glucse In 37.5 Gm Tube PO PRN PRN Hypoglycemia Protocol Heparin Sodium (Porcine) 7,500 units 12/27/24 14:06 01/05/25 16:17 Heparin Sodium 5,000 Units/Ml Vial IV PUSH 7,500 units PRN PRN Administration aPTT less than 55 seconds Heparin Sodium (Porcine) 3,500 units 12/27/24 14:06 01/06/25 05:23 Heparin Sodium 5,000 Units/Ml Vial IV PUSH 3,500 units PRN PRN Administration aPTT 55 - 70 seconds Dextrose 1,000 mls @ 100 mls/hr 12/17/24 22:39 Dextrose 5% 1,000 Ml IVPB PRN PRN Hypoglycemia Protocol Albumin Human 50 mls @ 999 mls/hr 12/22/24 05:43 Albutein IVPB 01/21/25 05:42 Q10M PRN HYPOTENSION Heparin Sodium/Dextrose 25,000 units in 250 mls @ 0 mls/hr 12/27/24 14:10 01/06/25 06:52 Heparin Sodium/D5w 100 Units/Ml IV CONT 0 units/hr .Q0M REGINA 0 mls/hr Titration Protocol 0 UNITS/HR Insulin Aspart 2 - 5 units 12/29/24 12:00 01/07/25 12:00 Insulin Aspart (*Bkc) 100 Units/Ml SUB-Q Not Given TIDWM [facility] Protocol Insulin Aspart 2 - 5 units 12/29/24 21:00 01/07/25 06:49 Insulin Aspart (*Bkc) 100 Units/Ml SUB-Q Not Given HS [facility] Protocol Levothyroxine Sodium 250 mcg 12/21/24 06:30 01/07/25 06:17 Levothyroxine Sodium 125 Mcg Tablet PO 250 mcg [id number]@0630 [facility] Administration Levothyroxine Sodium 125 mcg 12/26/24 06:30 01/02/25 06:02 Levothyroxine Sodium 125 Mcg Tablet PO 125 mcg Mitchell@0630 [facility] Administration Lorazepam 2 mg 01/07/25 14:20 Lorazepam Inj (*Crx) 2 Mg/Ml Vial IV PUSH Q2H PRN Anxiety/Comfort Metoprolol Tartrate 50 mg 01/06/25 14:00 01/07/25 13:34 Metoprolol Tartrate 50 Mg Tab PO 50 mg Q6H REGINA Administration Morphine Sulfate 2 mg 01/07/25 14:20 01/07/25 15:10 Morphine Sulfate (*Crx) 2 Mg/Ml Inj IV PUSH 2 mg Q30M PRN Administration COMFORT Multi-Ingred Cream/Lotion/Oil/Oint 1 applic 01/01/25 12:35 01/07/25 09:00 Eucerin Cream 120 Gm Jar TOPICAL 1 applic DAILY [facility] Administration Nicotine 1 patch 01/04/25 21:00 01/06/25 23:40 Nicotine (*Pbkc) 21 Mg Patch TRANSDERM Not Given HS [facility] Ondansetron HCl 4 mg 12/17/24 16:18 01/06/25 01:34 Ondansetron Inj 4 Mg/2 Ml Vial IV PUSH 4 mg Q4H PRN Administration Nausea Polyethylene Glycol 17 gm 01/03/25 09:00 01/07/25 08:47 Polyethylene Glycol 3350 17 Gm Powd.Pack PO Not Given QAM [facility] Quetiapine Fumarate 25 mg 12/31/24 21:00 01/06/25 23:40 Quetiapine Fumarate 25 Mg Tablet PO Not Given HS [facility] Sertraline HCl 100 mg 12/18/24 09:00 01/07/25 08:45 Sertraline Hcl 50 Mg Tablet PO 100 mg DAILY [facility] Administration Tamsulosin HCl 0.4 mg 01/05/25 21:00 01/06/25 23:40 Tamsulosin Hcl 0.4 Mg Capsule PO Not Given HS [facility] Vitamin D 1,000 units 12/31/24 09:00 01/07/25 08:47 Cholecalciferol 1,000 Units Tablet PO Not Given DAILY [facility] Radiology Results: ITS Impressions Lumbar Spine X-Ray 12/17/24 15:44 IMPRESSION: Anterior loss of volume of L1 which is most likely chronic. MRI evaluation advised. Otherwise, No acute osseous abnormality lumbar spine. Degenerative disc disease at the level of L4-L5. Venous Doppler Study 12/18/24 13:13 IMPRESSION: 1. No deep venous thrombosis. Abdomen Ultrasound 12/18/24 13:18 IMPRESSION: 1. Cholelithiasis. No evidence of acute cholecystitis. 2. Mildly dilated common duct. Renal Ultrasound 12/18/24 13:21 IMPRESSION: 1. Normal kidney sizes. No hydronephrosis. Lumbar Spine MRI 12/18/24 15:23 IMPRESSION: Limited examination secondary to motion artifact. No abnormal signal intensity or contrast enhancement is identified within the vertebral body of L1 to suggest acute traumatic injury. Within the visualized intervertebral disc spaces, moderate degenerative disease is noted, as detailed above. Duplex Scan Lower Extremity Artery 12/18/24 21:35 IMPRESSION: Abnormal peak systolic velocity and waveform morphology suggesting a popliteal or tibioperoneal trunk stenosis. Three-vessel blood flow into the right calf with single vessel blood flow into the right foot (on the submitted images) MRCP 12/21/24 08:48 IMPRESSION: 1. Study terminated at patient request prior to obtaining the normal complement of sequences including the MRCP images and which along with some motion artifact on the obtained sequences moderately limits evaluation. 2. Anasarca with small left and moderate-sized right pleural effusions, small amount of ascites and extensive body wall, as enteric and retroperitoneal edema. 3. Normal-appearing gallbladder with no evident cholelithiasis and with no intra or extrahepatic biliary ductal dilation. Sensitivity for tiny gallstones which were suggested on prior ultrasound is limited by motion artifact. 4. Cardiomegaly. Liver Biopsy Ultrasound 12/22/24 10:51 IMPRESSION: 1. Successful Ultrasound-guided random liver biopsy. Renal Biopsy Ultrasound 12/23/24 10:32 IMPRESSION: 1. Ultrasound-guided random left kidney core needle biopsy. Head CT 12/25/24 17:06 IMPRESSION: No acute intracranial process. Scrotum Ultrasound 01/05/25 15:10 IMPRESSION: Significant soft tissue swelling, without inherent testicular abnormality. Chest X-Ray 01/06/25 17:46 IMPRESSION: Cardiomegaly with cardiac decompensation and pulmonary edema. Superimposed pneumonia is not excluded. Left pleural effusion. Central Venous Line 01/07/25 07:58 IMPRESSION: Fluoroscopy used during central line placement. Labs Labs: Laboratory Results - last 24 hr 01/06/25 01/06/25 01/07/25 20:34 23:33 08:13 WBC RBC Hgb Hct MCV MCH MCHC RDW Plt Count MPV Immature Gran % (Auto) Neut % (Auto) Lymph % (Auto) [place] % (Auto) Eos % (Auto) Baso % (Auto) Lymph # (Auto) [place] # (Auto) Eos # (Auto) Baso # (Auto) Abs Immat Gran (auto) Absolute Neuts (auto) Absolute Nucleated RBC Band Neutrophils % Nucleated RBC % Platelet Estimate Polychromasia Hypochromasia Anisocytosis Ovalocytes Massey Cells Schistocytes Sodium Potassium Chloride Carbon Dioxide Anion Gap BUN Creatinine Estim Creat Clear Calc Estimated GFR Glucose POC Capillary Glucose 125 H 137 H 118 H Lactic Acid Calcium Magnesium Total Bilirubin AST ALT Alkaline Phosphatase Ammonia Total Protein Albumin 01/07/25 01/07/25 10:38 11:47 WBC 8.3 RBC 4.53 L Hgb 10.8 L Hct 39.1 L MCV 86.3 MCH 23.8 L MCHC 27.6 L RDW 18.6 H Plt Count 216 MPV 10.3 Immature Gran % (Auto) 0.5 Neut % (Auto) 62.0 Lymph % (Auto) 22.8 [place] % (Auto) 12.4 H Eos % (Auto) 1.3 Baso % (Auto) 1.0 Lymph # (Auto) 1.89 [place] # (Auto) 1.0 H Eos # (Auto) 0.1 Baso # (Auto) 0.1 Abs Immat Gran (auto) 0.04 H Absolute Neuts (auto) 5.1 Absolute Nucleated RBC 0.070 H Band Neutrophils % Not Reportable Nucleated RBC % 0.8 H Platelet Estimate Adequate Polychromasia 1+ Hypochromasia 1+ Anisocytosis 1+ Ovalocytes 1+ Massey Cells 1+ Schistocytes None seen Sodium 135 L Potassium 5.2 H Chloride 100 Carbon Dioxide 25 Anion Gap 10 BUN 38 H Creatinine 3.42 H Estim Creat Clear Calc 27 Estimated GFR 18 L Glucose 104 POC Capillary Glucose 103 Lactic Acid 1.8 Calcium 8.1 L Magnesium 2.0 Total Bilirubin 1.0 AST 44 ALT 59 H Alkaline Phosphatase 128 H Ammonia < 9 L Total Protein 6.0 L Albumin 2.9 L Quality VTE Prophylaxis VTE prophylaxis: pharmacologic ordered
--- NOTE | 2025-01-07 18:50 | WPDANESPN ---
Anes - Prog Note Post-Op Date/Time: 01/07/25 18:50 Cardiovascular status: normal Respiratory status: normal Airway patency: baseline Mental status: baseline Post-Op hydration status: normal Vital Signs: Last Vital Signs Temp 36.1 C L 01/07/25 14:00 Pulse 85 01/07/25 14:00 Resp 18 01/07/25 14:00 BP 97/68 L 01/07/25 14:00 Pulse Ox 99 01/07/25 14:00 O2 Del Method Room Air 01/07/25 08:00 O2 Flow Rate 3 01/06/25 18:00 FiO2 0 01/01/25 08:00 Pain Score (VAS): 0 I/O: Intake & Output 01/07/25 01/07/25 01/07/25 07:59 15:59 23:59 Output Total 100 Balance -100 Laboratory Tests 01/07/25 10:38 01/07/25 10:38 01/06/25 01/06/25 01/07/25 20:34 23:33 08:13 WBC RBC Hgb Hct MCV MCH MCHC RDW Plt Count MPV Immature Gran % (Auto) Neut % (Auto) Lymph % (Auto) [place] % (Auto) Eos % (Auto) Baso % (Auto) Lymph # (Auto) [place] # (Auto) Eos # (Auto) Baso # (Auto) Abs Immat Gran (auto) Absolute Neuts (auto) Absolute Nucleated RBC Band Neutrophils % Nucleated RBC % Platelet Estimate Polychromasia Hypochromasia Anisocytosis Ovalocytes [place] Cells Schistocytes Sodium Potassium Chloride Carbon Dioxide Anion Gap BUN Creatinine Estim Creat Clear Calc Estimated GFR Glucose POC Capillary Glucose 125 H 137 H 118 H Lactic Acid Calcium Magnesium Total Bilirubin AST ALT Alkaline Phosphatase Ammonia Total Protein Albumin 01/07/25 01/07/25 10:38 11:47 WBC 8.3 RBC 4.53 L Hgb 10.8 L Hct 39.1 L MCV 86.3 MCH 23.8 L MCHC 27.6 L RDW 18.6 H Plt Count 216 MPV 10.3 Immature Gran % (Auto) 0.5 Neut % (Auto) 62.0 Lymph % (Auto) 22.8 [place] % (Auto) 12.4 H Eos % (Auto) 1.3 Baso % (Auto) 1.0 Lymph # (Auto) 1.89 [place] # (Auto) 1.0 H Eos # (Auto) 0.1 Baso # (Auto) 0.1 Abs Immat Gran (auto) 0.04 H Absolute Neuts (auto) 5.1 Absolute Nucleated RBC 0.070 H Band Neutrophils % Not Reportable Nucleated RBC % 0.8 H Platelet Estimate Adequate Polychromasia 1+ Hypochromasia 1+ Anisocytosis 1+ Ovalocytes 1+ [place] Cells 1+ Schistocytes None seen Sodium 135 L Potassium 5.2 H Chloride 100 Carbon Dioxide 25 Anion Gap 10 BUN 38 H Creatinine 3.42 H Estim Creat Clear Calc 27 Estimated GFR 18 L Glucose 104 POC Capillary Glucose 103 Lactic Acid 1.8 Calcium 8.1 L Magnesium 2.0 Total Bilirubin 1.0 AST 44 ALT 59 H Alkaline Phosphatase 128 H Ammonia < 9 L Total Protein 6.0 L Albumin 2.9 L Post-procedural complaints: none Patient Feedback: Patient satisfied with anesthetic care.
--- NOTE | 2025-01-07 19:58 | P.PNCROSS_ITS ---
Event Note Event Note Event Note: This is a late entry due to computer doubt time. Nursing staff called on the e vening of the . The patient was actively hallucinating and yelling out and screaming. He could be heard throughout the entire floor despite the door to his room being closed. Is screaming had been going on for hours nonstop. He did not have any access because he had pulled out his tunneled dialysis catheter and all peripheral IVs. I reviewed the patient's chart he did have some QT prolongation. Subsequently order for IM Zyprexa 10 mg was provided. On re- evaluation 1.5 hours later the patient had calmed and was sleeping.
[2025-01-08] MEDS: LORazepam INJ (*CRX) 2 MG/ML VIAL IV PUSH ×6 (03:43→20:25)
[2025-01-08 05:48] VITALS: BP 99/77; PULSE 118; RESP 17; TEMP 36.4; O2SAT 97
[2025-01-08] MEDS: MORPHINE SULFATE (*CRX) 2 MG/ML INJ IV PUSH ×5 (08:56→21:41)
[2025-01-08 13:48] VITALS: BP 113/92; PULSE 112; RESP 20; TEMP 36.3; O2SAT 98
--- NOTE | 2025-01-08 15:36 | P.PNIM_ITS ---
Progress Note: A&P Assessment and Plan (1) Altered mental status: Code(s): R41.82 - Altered mental status, unspecified Status: Acute Assessment and Plan: * Patient has developed confused since 12/25/2024. He was receiving ativan and haldol prn for agitation * Ammonia negative * ABG unremarkable. B12 normal. TSH as mentioned below. Vit D <12.8 * CT head unremarkable. CXR showing small left and small-mod right pleural effusion with associated atelectasis and/or PNA * UA noted so started empirically on ceftriaxone * BCx (12/25) NGTD. UCx 12/25 negative so Rocephin stopped. * EEG 12/28 - abnormal record due to the absence of a normal background rhythm but without evidence of paroxysmal activity * Stopped all of his sedating mediations and Seroquel added * Mental status better. Continue to hold all sedating medications. Continue Seroquel at night. * Increase activity and try to keep awake most of the day (2) Abnormal transaminases: Code(s): R74.8 - Abnormal levels of other serum enzymes Status: Acute Assessment and Plan: * On admission, LFTs were mildly elevated. Hepatitis panel negative. Abd US showing cholelithiasis and mildly dilated CBD. Liver was normal in appearance. Lipitor held. Repeat levels on 12/20 much worse with AST 1539, ALT 1066, AP 479, normal bili. Lactic acid 1.1. Acet level <10. [place] due to congestion from heart failure * Consider autoimmune with + * IV fluids stopped. GI consulted and appreciate their input. * Patient was able to complete some of the MRCP. This showed anasarca, small left and moderate size right pleural effusion, small amount of ascites, extensive body edema and cardiomegaly. He had a normal appearing gallbladder with no evidence of cholelithiasis no intra or extrahepatic biliary ductal dilatation. Sensitivity was limited. * Status post liver biopsy 12/22/2024: congestive hepatopathy and congestive h epatic fibrosis score 1. * LFTs improving. [place] related to hepatic congestion. Follow. (3) Acute kidney injury: Code(s): N17.9 - Acute kidney failure, unspecified Status: Acute Assessment and Plan: * Patient presents with weakness and may have had underlying PNA. * Cr on admission 4.3. Baseline Cr 2.1-2.9 range. He was started on IV fluids. * Urine eos negative. Eve 42. Total CK 371. Urine prot/Cr 4.7gm consistent with nephrotic syndrome. * Complement normal. Hx of + 1:640. Renal US normal. * Nephrology consulted and appreciate their input. Cryoglobulin negative. * Creatinine was trending up; HD catheter placement 12/22/2024 and was started on hemodialysis. * Renal biopsy 12/23/2024 with advanced diabetic glomerulosclerosis class 4. 50-60% tubular atrophy and interstitial fibrosis. * Last dialysis today 01/03/2025 * UOP poor. Cr rising. * Appreciate nephrology input. Discussed with nephrology. * Tunneled cath being planned. (4) Pneumonia: Code(s): J18.9 - Pneumonia, unspecified organism Status: Acute Assessment and Plan: * Patient presents with weakness after having cold and cough symptoms for 3 weeks. No benefit after 2 Z-packs. * CXR showing bibasilar infiltrates. No fevers or hypoxia. WBC 12K. * He was started on Rocephin and Doxycycline. * WBC normal now. BCx NGTD. MRSA screen negative. * Urine Ag negative. Sputum Cx growing MSSA and yeast. * He completed a 7 day course. Rocephin restarted for possible UTI but UCx negative so stopped. * Follow off abx (last dose of Rocephin was 12/29 at 1215) (5) Heart failure with mildly reduced ejection fraction: Code(s): I50.22 - Chronic systolic (congestive) heart failure Status: Acute Assessment and Plan: * Echo showing severely reduced systolic fxn with EF 25-30% with diastolic dysfunction, mild valve disease and moderate pulmonary HTN. BNP >30K. * CXR showing CMG, bibasilar infiltrates and small pleural effusions. * Entresto and finerenone on hold. Diuretics not listed on home med list. * Holding Entresto. * Monitor UOP, renal fxn, daily weights and fluid balance. (6) Atrial flutter with rapid ventricular response: Code(s): I48.92 - Unspecified atrial flutter Status: Acute Assessment and Plan: * New onset atrial fibrillation. On metoprolol. * On heparin drip for now. Change to Eliquis when able * HR poorly controlled. Advance metoprolol. * Monitor HR (7) Type 2 diabetes mellitus with hyperglycemia, with long-term current use of insulin: Code(s): E11.65 - Type 2 diabetes mellitus with hyperglycemia; Z79.4 - nursing home (current) use of insulin Status: Acute Assessment and Plan: * A1c 7%. The patient's blood glucose was reviewed * Patient was on an insulin pump at home. Concern patient was unable to handle his pump here so this was held. * Glucose remains well controlled off the insulin pump despite his improved eating habit * Continue AccuCheks covering with sliding scale. Hypoglycemia protocol available as needed. * Continue to monitor (8) Chronic kidney disease, stage 4 (severe): Code(s): N18.4 - Chronic kidney disease, stage 4 (severe) Status: Acute Assessment and Plan: As above (9) Status post above-knee amputation of left lower extremity: Code(s): Z89.612 - Acquired absence of left leg above knee Status: Acute Assessment and Plan: * Patient with known PAD. Venous doppler RLE negative for DVT. * Arterial doppler RLE suggestive of a popliteal or tibioperoneal trunk stenosis. There is three-vessel blood flow into the right calf with single vessel blood flow into the right foot. * Continue Zetia and ASA. Resume Lipitor when able. Plan # Hypothyroidism: Review of Endocrine note from 11/12 showing he was to skip the Friday Synthroid dose. TSH is 46.4. Free T4 is low-normal at 0.96. Total T3 is 0.5. Patient is currently on 250 mcg daily except no meds on Friday. Suspect the skipped dose has resulted in the change in his thyroid panel. Will adjust to 250mcg daily except added 125mcg on Sundays. # Tobacco dependence: Patient was educated about the benefits of smoking cessation # urinary retention status post cystoscopy with passive dilation of mild bulbar narrowing. Complex Hernandez catheter placement with 16 Uzbek coude on 12/20/2024. Maintain Hernandez catheter until improvement in volume status and mobility. # Low back pain - Lumbar MRI performed but no acute finding seen on limited imaging due to motion artifact. # meth abuse - Possible meth abuse to explain some of his mental status confusion prior to admission. Will discuss when patient more awake and alert. 64 y/o male with CKD with worsening urine output and serum BUN and creatinine are rising, patient developed agitation and was treated with Ativan and Haldol as well as receiving pain medication as needed however patient became confused and suspect most likely 2/2 sedating medications he had been receiving, these medications are on hold now patient is given Seroquel for sleep, patient is seen by his qualitative field coordinator RECYCLING DIRECTOR-HD was started on 12/21 and has temporary cath, patient is seen by surgery service and was planned to have tunnel catheter today however it is postponed until tomorrow, today patient is little more oriented and cooperative but upset as patient wish to go home, patient is schedule to have tunneled dialysis catheter today, will monitor and follow up. before patient can be discharge patient will need outpatient dialysis arrangement with a dialysis center, patient also developed new onset A.Fib with RVR seen by cobol programmer started on metoprolol now rate is under control however patient blood pressure is elevated and metoprolol was increased, being anticoagulated with heparin due to pending surgery, may switch to oral anticoagulation. Patient remain confused and he again pulled out his dialysis tunnel catheter which just was placed yesterday this is the second catheter he pulled out, today patient POA and healthcare marketer day a meeting and I was present. Patient care manger has placed DNR order and placed patient under comfort measure and no medical intervention. I have placed DNR and comfort measures order for the patient. patient remains clinically stable, will continue to monitor, I did explain to POA on 01/07 that without dialysis his potassium levels will rise and patient heart will stop and patient may . # DVT prophylaxis - Heparin # Code status - full Subjective Date/time seen: 01/08/25 15:36 Interval history: Patient refusing dialysis this morning and later agreed. Patient denies chest pain, palpitations, headache, dizziness, nausea, or vomiting. Spoke with sister Ruby and she stated that they wanted patient transferred to [facility] or she would not mind [place], she felt that doctors were not doing what they should. Ruby mentioned ex is the POA and will be coming up to the hospital. Patient when he returned from dialysis was wanting a ride home and stated he does not want to go to [facility]. Nurse reports that ex was good with care here. 64 y/o male with CKD with worsening urine output and serum BUN and creatinine are rising, patient developed agitation and was treated with Ativan and Haldol as well as receiving pain medication as needed however patient became confused and suspect most likely 2/2 sedating medications he had been receiving, these medications are on hold now patient is given Seroquel for sleep, patient is seen by his qualitative field coordinator RECYCLING DIRECTOR-HD was started on 12/21 and has temporary cath, patient is seen by surgery service and was planned to have tunnel catheter today however it is postponed until tomorrow, today patient is little more oriented and cooperative but upset as patient wish to go home, patient is schedule to have tunneled dialysis catheter today, will monitor and follow up. before patient can be discharge patient will need outpatient dialysis arrangement with a dialysis center, patient also developed new onset A.Fib with RVR seen by cobol programmer started on metoprolol now rate is under control however patient blood pressure is elevated and metoprolol was increased, being anticoagulated with heparin due to pending surgery, may switch to oral anticoagulation. Patient remain confused and he again pulled out his dialysis tunnel catheter which just was placed yesterday this is the second catheter he pulled out, today patient POA and healthcare marketer day a meeting and I was present. Patient care manger has placed DNR order and placed patient under comfort measure and no medical intervention. I have placed DNR and comfort measures order for the patient. patient remains clinically stable, will continue to monitor, I did explain to POA on 01/07 that without dialysis his potassium levels will rise and patient heart will stop and patient may . Review of Systems Review of Systems: ROS unobtainable: Yes unobtainable due to mental status Exam Narrative: Patient is comfortable, NAD HEENT: eyes are clear and none icteric LUNGS:CTA HEART: RR S1S2 ABD: BS+, Soft and nontender Lower extremities: no edema SKIN: nonjaundiced Neuro: grossly intact. Objective Data Vital Signs Vital Signs: Vital Signs - 24 hr 01/07/25 20:00 01/08/25 05:48 01/08/25 13:48 Temperature 36.4 C L 36.3 C L Pulse Rate 118 H 112 H Respiratory Rate 17 20 Blood Pressure 99/77 L 113/92 H Pulse Oximetry 97 98 Oxygen Delivery Room Air Intake/Output Intake/Output: Intake & Output 04/16/25 04/17/25 04/18/25 04/19/25 23:59 23:59 23:59 23:59 Intake Total 2050.0 272.2 Output Total 1645 1150 100 200 Balance 405.0 -877.8 -100 -200 Meds/Results Medications: Active Medications Generic Name Dose Route Start Last Admin Trade Name Freq PRN Reason Stop Dose Admin Acetaminophen 650 mg 12/31/24 12:08 Acetaminophen 650 Mg Suppository RECTAL Q6H PRN Mild Pain (1-3) or Fever Hydrocodone Bitart/Acetaminophen 1 tab 01/05/25 09:51 01/07/25 13:34 Hydrocodone/Acetaminophen (*Crx) 5-325 Mg Tablet PO 1 tab Q6H PRN Administration Pain Rated 4-6 Aspirin 81 mg 12/20/24 08:00 01/08/25 10:55 Aspirin 81 Mg Chewable Tablet PO Not Given DAILY@0800 [facility] Atropine Sulfate 1 - 2 drop 01/07/25 14:20 Atropine Sulfate 1% Ophth Soln 5 Ml Bottle SUBLINGUAL Q4H PRN Secretions Calcium Carbonate 200 mg 12/18/24 22:39 01/05/25 23:56 Calcium Carbonate (Tums) 500 Mg (200 Mg Elemental) PO 200 mg Q6H PRN Administration Indigestion Dextrose 12.5 gm 12/17/24 22:39 Dextrose 50% 25 Gm/50 Ml Syringe IV PUSH PRN PRN Hypoglycemia Protocol Docusate Sodium 100 mg 12/23/24 21:00 01/08/25 10:55 Docusate Sodium 100 Mg Capsule PO Not Given Q12HR [facility] Ezetimibe 10 mg 12/18/24 09:00 01/08/25 10:56 Ezetimibe 10 Mg Tablet PO Not Given DAILY [facility] Glucagon 1 mg 12/17/24 22:39 Glucagon For Inj 1 Mg Vial IM PRN PRN Hypoglycemia Protocol Glucose 15 gm 12/17/24 22:39 Glucose Oral Gel 15 Gm Of Glucse In 37.5 Gm Tube PO PRN PRN Hypoglycemia Protocol Heparin Sodium (Porcine) 7,500 units 12/27/24 14:06 01/05/25 16:17 Heparin Sodium 5,000 Units/Ml Vial IV PUSH 7,500 units PRN PRN Administration aPTT less than 55 seconds Heparin Sodium (Porcine) 3,500 units 12/27/24 14:01/06/25 05:23 Heparin Sodium 5,000 Units/Ml Vial IV PUSH 3,500 units PRN PRN Administration aPTT 55 - 70 seconds Dextrose 1,000 mls @ 100 mls/hr 12/17/24 22:39 Dextrose 5% 1,000 Ml IVPB PRN PRN Hypoglycemia Protocol Albumin Human 50 mls @ 999 mls/hr 12/22/24 05:43 Albutein IVPB 01/21/25 05:42 Q10M PRN HYPOTENSION Heparin Sodium/Dextrose 25,000 units in 250 mls @ 0 mls/hr 12/27/24 14:10 01/06/25 06:52 Heparin Sodium/D5w 100 Units/Ml IV CONT 0 units/hr .Q0M [facility] 0 mls/hr Titration Protocol 0 UNITS/HR Insulin Aspart 2 - 5 units 12/29/24 12:00 01/08/25 13:14 Insulin Aspart (*Bkc) 100 Units/Ml SUB-Q Not Given TIDWM [facility] Protocol Insulin Aspart 2 - 5 units 12/29/24 21:00 01/07/25 21:14 Insulin Aspart (*Bkc) 100 Units/Ml SUB-Q Not Given HS [facility] Protocol Levothyroxine Sodium 250 mcg 12/21/24 06:30 01/08/25 06:20 Levothyroxine Sodium 125 Mcg Tablet PO Not Given [id number]@0630 [facility] Levothyroxine Sodium 125 mcg 12/26/24 06:30 01/02/25 06:02 Levothyroxine Sodium 125 Mcg Tablet PO 125 mcg Mitchell@0630 [facility] Administration Lorazepam 2 mg 01/07/25 14:20 01/08/25 13:54 Lorazepam Inj (*Crx) 2 Mg/Ml Vial IV PUSH 2 mg Q2H PRN Administration Anxiety/Comfort Metoprolol Tartrate 50 mg 01/06/25 14:00 01/08/25 10:55 Metoprolol Tartrate 50 Mg Tab PO Not Given Q6H [facility] Morphine Sulfate 2 mg 01/07/25 14:20 01/08/25 13:55 Morphine Sulfate (*Crx) 2 Mg/Ml Inj IV PUSH 2 mg Q30M PRN Administration COMFORT Multi-Ingred Cream/Lotion/Oil/Oint 1 applic 01/01/25 12:35 01/08/25 10:56 Eucerin Cream 120 Gm Jar TOPICAL Not Given DAILY [facility] Nicotine 1 patch 01/04/25 21:00 01/07/25 21:15 Nicotine (*Pbkc) 21 Mg Patch TRANSDERM Not Given HS [facility] Ondansetron HCl 4 mg 12/17/24 16:18 01/06/25 01:34 Ondansetron Inj 4 Mg/2 Ml Vial IV PUSH 4 mg Q4H PRN Administration Nausea Polyethylene Glycol 17 gm 01/03/25 09:00 01/08/25 10:56 Polyethylene Glycol 3350 17 Gm Powd.Pack PO Not Given QAM [facility] Quetiapine Fumarate 25 mg 12/31/24 21:00 01/07/25 21:15 Quetiapine Fumarate 25 Mg Tablet PO Not Given HS [facility] Sertraline HCl 100 mg 12/18/24 09:00 01/08/25 10:56 Sertraline Hcl 50 Mg Tablet PO Not Given DAILY [facility] Tamsulosin HCl 0.4 mg 01/05/25 21:00 01/07/25 21:15 Tamsulosin Hcl 0.4 Mg Capsule PO Not Given HS [facility] Vitamin D 1,000 units 12/31/24 09:00 01/08/25 10:55 Cholecalciferol 1,000 Units Tablet PO Not Given DAILY [facility] Radiology Results: ITS Impressions Lumbar Spine X-Ray 12/17/24 15:44 IMPRESSION: Anterior loss of volume of L1 which is most likely chronic. MRI evaluation advised. Otherwise, No acute osseous abnormality lumbar spine. Degenerative disc disease at the level of L4-L5. Venous Doppler Study 12/18/24 13:13 IMPRESSION: 1. No deep venous thrombosis. Abdomen Ultrasound 12/18/24 13:18 IMPRESSION: 1. Cholelithiasis. No evidence of acute cholecystitis. 2. Mildly dilated common duct. Renal Ultrasound 12/18/24 13:21 IMPRESSION: 1. Normal kidney sizes. No hydronephrosis. Lumbar Spine MRI 12/18/24 15:23 IMPRESSION: Limited examination secondary to motion artifact. No abnormal signal intensity or contrast enhancement is identified within the vertebral body of L1 to suggest acute traumatic injury. Within the visualized intervertebral disc spaces, moderate degenerative disease is noted, as detailed above. Duplex Scan Lower Extremity Artery 12/18/24 21:35 IMPRESSION: Abnormal peak systolic velocity and waveform morphology suggesting a popliteal or tibioperoneal trunk stenosis. Three-vessel blood flow into the right calf with single vessel blood flow into the right foot (on the submitted images) MRCP 12/21/24 08:48 IMPRESSION: 1. Study terminated at patient request prior to obtaining the normal complement of sequences including the MRCP images and which along with some motion artifact on the obtained sequences moderately limits evaluation. 2. Anasarca with small left and moderate-sized right pleural effusions, small amount of ascites and extensive body wall, as enteric and retroperitoneal edema. 3. Normal-appearing gallbladder with no evident cholelithiasis and with no intra or extrahepatic biliary ductal dilation. Sensitivity for tiny gallstones which were suggested on prior ultrasound is limited by motion artifact. 4. Cardiomegaly. Liver Biopsy Ultrasound 12/22/24 10:51 IMPRESSION: 1. Successful Ultrasound-guided random liver biopsy. Renal Biopsy Ultrasound 12/23/24 10:32 IMPRESSION: 1. Ultrasound-guided random left kidney core needle biopsy. Head CT 12/25/24 17:06 IMPRESSION: No acute intracranial process. Scrotum Ultrasound 01/05/25 15:10 IMPRESSION: Significant soft tissue swelling, without inherent testicular abnormality. Chest X-Ray 01/06/25 17:46 IMPRESSION: Cardiomegaly with cardiac decompensation and pulmonary edema. Superimposed pneumonia is not excluded. Left pleural effusion. Central Venous Line 01/07/25 07:58 IMPRESSION: Fluoroscopy used during central line placement.
[2025-01-08] MEDS: ATROPINE SULFATE 1% OPHTH SOLN 5 ML BOTTLE SUBLINGUAL (18:05)
[2025-01-08 21:19] VITALS: BP 88/68; PULSE 108; RESP 18; TEMP 36.6; O2SAT 94
[2025-01-09] MEDS: LORazepam INJ (*CRX) 2 MG/ML VIAL IV PUSH ×5 (02:33→21:46)
[2025-01-09] MEDS: MORPHINE SULFATE (*CRX) 2 MG/ML INJ IV PUSH ×6 (02:34→21:46)
[2025-01-09 03:32] VITALS: O2SAT 99
[2025-01-09 14:00] VITALS: BP 95/65; PULSE 118; RESP 12; TEMP 35.9; O2SAT 89
--- NOTE | 2025-01-09 15:47 | P.PNIM_ITS ---
Progress Note: A&P Assessment and Plan (1) Altered mental status: Code(s): R41.82 - Altered mental status, unspecified Status: Acute Assessment and Plan: * Patient has developed confused since 12/25/2024. He was receiving ativan and haldol prn for agitation * Ammonia negative * ABG unremarkable. B12 normal. TSH as mentioned below. Vit D <12.8 * CT head unremarkable. CXR showing small left and small-mod right pleural effusion with associated atelectasis and/or PNA * UA noted so started empirically on ceftriaxone * BCx (12/25) NGTD. UCx 12/25 negative so Rocephin stopped. * EEG 12/28 - abnormal record due to the absence of a normal background rhythm but without evidence of paroxysmal activity * Stopped all of his sedating mediations and Seroquel added * Mental status better. Continue to hold all sedating medications. Continue Seroquel at night. * Increase activity and try to keep awake most of the day (2) Abnormal transaminases: Code(s): R74.8 - Abnormal levels of other serum enzymes Status: Acute Assessment and Plan: * On admission, LFTs were mildly elevated. Hepatitis panel negative. Abd US showing cholelithiasis and mildly dilated CBD. Liver was normal in appearance. Lipitor held. Repeat levels on 12/20 much worse with AST 1539, ALT 1066, AP 479, normal bili. Lactic acid 1.1. Acet level <10. [place] due to congestion from heart failure * Consider autoimmune with + * IV fluids stopped. GI consulted and appreciate their input. * Patient was able to complete some of the MRCP. This showed anasarca, small left and moderate size right pleural effusion, small amount of ascites, extensive body edema and cardiomegaly. He had a normal appearing gallbladder with no evidence of cholelithiasis no intra or extrahepatic biliary ductal dilatation. Sensitivity was limited. * Status post liver biopsy 12/22/2024: congestive hepatopathy and congestive h epatic fibrosis score 1. * LFTs improving. [place] related to hepatic congestion. Follow. (3) Acute kidney injury: Code(s): N17.9 - Acute kidney failure, unspecified Status: Acute Assessment and Plan: * Patient presents with weakness and may have had underlying PNA. * Cr on admission 4.3. Baseline Cr 2.1-2.9 range. He was started on IV fluids. * Urine eos negative. Eve 42. Total CK 371. Urine prot/Cr 4.7gm consistent with nephrotic syndrome. * Complement normal. Hx of + 1:640. Renal US normal. * Nephrology consulted and appreciate their input. Cryoglobulin negative. * Creatinine was trending up; HD catheter placement 12/22/2024 and was started on hemodialysis. * Renal biopsy 12/23/2024 with advanced diabetic glomerulosclerosis class 4. 50-60% tubular atrophy and interstitial fibrosis. * Last dialysis today 01/03/2025 * UOP poor. Cr rising. * Appreciate nephrology input. Discussed with nephrology. * Tunneled cath being planned. (4) Pneumonia: Code(s): J18.9 - Pneumonia, unspecified organism Status: Acute Assessment and Plan: * Patient presents with weakness after having cold and cough symptoms for 3 weeks. No benefit after 2 Z-packs. * CXR showing bibasilar infiltrates. No fevers or hypoxia. WBC 12K. * He was started on Rocephin and Doxycycline. * WBC normal now. BCx NGTD. MRSA screen negative. * Urine Ag negative. Sputum Cx growing MSSA and yeast. * He completed a 7 day course. Rocephin restarted for possible UTI but UCx negative so stopped. * Follow off abx (last dose of Rocephin was 12/29 at 1215) (5) Heart failure with mildly reduced ejection fraction: Code(s): I50.22 - Chronic systolic (congestive) heart failure Status: Acute Assessment and Plan: * Echo showing severely reduced systolic fxn with EF 25-30% with diastolic dysfunction, mild valve disease and moderate pulmonary HTN. BNP >30K. * CXR showing CMG, bibasilar infiltrates and small pleural effusions. * Entresto and finerenone on hold. Diuretics not listed on home med list. * Holding Entresto. * Monitor UOP, renal fxn, daily weights and fluid balance. (6) Atrial flutter with rapid ventricular response: Code(s): I48.92 - Unspecified atrial flutter Status: Acute Assessment and Plan: * New onset atrial fibrillation. On metoprolol. * On heparin drip for now. Change to Eliquis when able * HR poorly controlled. Advance metoprolol. * Monitor HR (7) Type 2 diabetes mellitus with hyperglycemia, with long-term current use of insulin: Code(s): E11.65 - Type 2 diabetes mellitus with hyperglycemia; Z79.4 - shelter (current) use of insulin Status: Acute Assessment and Plan: * A1c 7%. The patient's blood glucose was reviewed * Patient was on an insulin pump at home. Concern patient was unable to handle his pump here so this was held. * Glucose remains well controlled off the insulin pump despite his improved eating habit * Continue AccuCheks covering with sliding scale. Hypoglycemia protocol available as needed. * Continue to monitor (8) Chronic kidney disease, stage 4 (severe): Code(s): N18.4 - Chronic kidney disease, stage 4 (severe) Status: Acute Assessment and Plan: As above (9) Status post above-knee amputation of left lower extremity: Code(s): Z89.612 - Acquired absence of left leg above knee Status: Acute Assessment and Plan: * Patient with known PAD. Venous doppler RLE negative for DVT. * Arterial doppler RLE suggestive of a popliteal or tibioperoneal trunk stenosis. There is three-vessel blood flow into the right calf with single vessel blood flow into the right foot. * Continue Zetia and ASA. Resume Lipitor when able. Plan # Hypothyroidism: Review of Endocrine note from 11/12 showing he was to skip the Friday Synthroid dose. TSH is 46.4. Free T4 is low-normal at 0.96. Total T3 is 0.5. Patient is currently on 250 mcg daily except no meds on Friday. Suspect the skipped dose has resulted in the change in his thyroid panel. Will adjust to 250mcg daily except added 125mcg on Sundays. # Tobacco dependence: Patient was educated about the benefits of smoking cessation # urinary retention status post cystoscopy with passive dilation of mild bulbar narrowing. Complex Hernandez catheter placement with 16 Vietnamese coude on 12/20/2024. Maintain Hernandez catheter until improvement in volume status and mobility. # Low back pain - Lumbar MRI performed but no acute finding seen on limited imaging due to motion artifact. # meth abuse - Possible meth abuse to explain some of his mental status confusion prior to admission. Will discuss when patient more awake and alert. 64 y/o male with CKD with worsening urine output and serum BUN and creatinine are rising, patient developed agitation and was treated with Ativan and Haldol as well as receiving pain medication as needed however patient became confused and suspect most likely 2/2 sedating medications he had been receiving, these medications are on hold now patient is given Seroquel for sleep, patient is seen by his paper cone machine tender [employer]IST[employer] was started on 12/21 and has temporary cath, patient is seen by surgery service and was planned to have tunnel catheter today however it is postponed until tomorrow, today patient is little more oriented and cooperative but upset as patient wish to go home, patient is schedule to have tunneled dialysis catheter today, will monitor and follow up. before patient can be discharge patient will need outpatient dialysis arrangement with a dialysis center, patient also developed new onset A.Fib with RVR seen by social studies department chair started on metoprolol now rate is under control however patient blood pressure is elevated and metoprolol was increased, being anticoagulated with heparin due to pending surgery, may switch to oral anticoagulation. Patient remain confused and he again pulled out his dialysis tunnel catheter which just was placed yesterday this is the second catheter he pulled out, today patient POA and health care recruiter day a meeting and I was present. Patient care manger has placed DNR order and placed patient under comfort measure and no medical intervention. I have placed DNR and comfort measures order for the patient. patient remains clinically stable, will continue to monitor, I did explain to POA on 01/07 that without dialysis his potassium levels will rise and patient heart will stop and patient may . patient remains clinically stable, will continue to monitor. # DVT prophylaxis - Heparin # Code status - full Subjective Date/time seen: 01/09/25 15:47 Interval history: Patient refusing dialysis this morning and later agreed. Patient denies chest pain, palpitations, headache, dizziness, nausea, or vomiting. Spoke with sister Ruby and she stated that they wanted patient transferred to [facility] or she would not mind [place], she felt that doctors were not doing what they should. Ruby mentioned ex is the POA and will be coming up to the hospital. Patient when he returned from dialysis was wanting a ride home and stated he does not want to go to [facility]. Nurse reports that ex was good with care here. 64 y/o male with CKD with worsening urine output and serum BUN and creatinine are rising, patient developed agitation and was treated with Ativan and Haldol as well as receiving pain medication as needed however patient became confused and suspect most likely 2/2 sedating medications he had been receiving, these medications are on hold now patient is given Seroquel for sleep, patient is seen by his paper cone machine tender [employer]IST-[employer] was started on 12/21 and has temporary cath, patient is seen by surgery service and was planned to have tunnel catheter today however it is postponed until tomorrow, today patient is little more oriented and cooperative but upset as patient wish to go home, patient is schedule to have tunneled dialysis catheter today, will monitor and follow up. before patient can be discharge patient will need outpatient dialysis arrangement with a dialysis center, patient also developed new onset A.Fib with RVR seen by social studies department chair started on metoprolol now rate is under control however patient blood pressure is elevated and metoprolol was increased, being anticoagulated with heparin due to pending surgery, may switch to oral anticoagulation. Patient remain confused and he again pulled out his dialysis tunnel catheter which just was placed yesterday this is the second catheter he pulled out, today patient POA and health care recruiter day a meeting and I was present. Patient care manger has placed DNR order and placed patient under comfort measure and no medical intervention. I have placed DNR and comfort measures order for the patient. patient remains clinically stable, will continue to monitor, I did explain to POA on 01/07 that without dialysis his potassium levels will rise and patient heart will stop and patient may . patient remains clinically stable, will continue to monitor. Exam Narrative: Patient is comfortable, NAD HEENT: eyes are clear and none icteric LUNGS:CTA HEART: RR S1S2 ABD: BS+, Soft and nontender Lower extremities: no edema SKIN: nonjaundiced Neuro: grossly intact. Objective Data Vital Signs Vital Signs: Vital Signs - 24 hr 01/08/25 20:20 01/08/25 21:19 01/09/25 03:32 Temperature 36.6 C Pulse Rate 108 H Respiratory Rate 18 Blood Pressure 88/68 L Pulse Oximetry 94 99 Oxygen Delivery Room Air Room Air Fraction of Inspired Oxygen 0 01/09/25 08:00 01/09/25 14:00 Temperature 35.9 C L Pulse Rate 118 H Respiratory Rate 12 Blood Pressure 95/65 L Pulse Oximetry 89 L Oxygen Delivery Room Air Fraction of Inspired Oxygen Intake/Output Intake/Output: Intake & Output 01/06/25 01/07/25 01/08/25 01/09/25 23:59 23:59 23:59 23:59 Intake Total 272.2 360 Output Total 1150 100 400 175 Balance -877.8 -100 -40 -175 Meds/Results Medications: Active Medications Generic Name Dose Route Start Last Admin Trade Name Freq PRN Reason Stop Dose Admin Acetaminophen 650 mg 12/31/24 12:08 Acetaminophen 650 Mg Suppository RECTAL Q6H PRN Mild Pain (1-3) or Fever Hydrocodone Bitart/Acetaminophen 1 tab 01/05/25 09:51 01/07/25 13:34 Hydrocodone/Acetaminophen (*Crx) 5-325 Mg Tablet PO 1 tab Q6H PRN Administration Pain Rated 4-6 Aspirin 81 mg 12/20/24 08:00 01/09/25 08:00 Aspirin 81 Mg Chewable Tablet PO Not Given DAILY@0800 REGINA Atropine Sulfate 1 - 2 drop 01/07/25 14:20 01/08/25 18:05 Atropine Sulfate 1% Ophth Soln 5 Ml Bottle SUBLINGUAL 2 drop Q4H PRN Administration Secretions Calcium Carbonate 200 mg 12/18/24 22:39 01/05/25 23:56 Calcium Carbonate (Tums) 500 Mg (200 Mg Elemental) PO 200 mg Q6H PRN Administration Indigestion Dextrose 12.5 gm 12/17/24 22:39 Dextrose 50% 25 Gm/50 Ml Syringe IV PUSH PRN PRN Hypoglycemia Protocol Docusate Sodium 100 mg 12/23/24 21:00 01/09/25 08:00 Docusate Sodium 100 Mg Capsule PO Not Given Q12HR [facility] Ezetimibe 10 mg 12/18/24 09:00 01/09/25 08:00 Ezetimibe 10 Mg Tablet PO Not Given DAILY REGINA Glucagon 1 mg 12/17/24 22:39 Glucagon For Inj 1 Mg Vial IM PRN PRN Hypoglycemia Protocol Glucose 15 gm 12/17/24 22:39 Glucose Oral Gel 15 Gm Of Glucse In 37.5 Gm Tube PO PRN PRN Hypoglycemia Protocol Heparin Sodium (Porcine) 7,500 units 12/27/24 14:06 01/05/25 16:17 Heparin Sodium 5,000 Units/Ml Vial IV PUSH 7,500 units PRN PRN Administration aPTT less than 55 seconds Heparin Sodium (Porcine) 3,500 units 12/27/24 14:06 01/06/25 05:23 Heparin Sodium 5,000 Units/Ml Vial IV PUSH 3,500 units PRN PRN Administration aPTT 55 - 70 seconds Dextrose 1,000 mls @ 100 mls/hr 12/17/24 22:39 Dextrose 5% 1,000 Ml IVPB PRN PRN Hypoglycemia Protocol Albumin Human 50 mls @ 999 mls/hr 12/22/24 05:43 Albutein IVPB 01/21/25 05:42 Q10M PRN HYPOTENSION Heparin Sodium/Dextrose 25,000 units in 250 mls @ 0 mls/hr 12/27/24 14:10 01/06/25 06:52 Heparin Sodium/D5w 100 Units/Ml IV CONT 0 units/hr .Q0M [facility] 0 mls/hr Titration Protocol 0 UNITS/HR Insulin Aspart 2 - 5 units 12/29/24 12:00 01/09/25 08:00 Insulin Aspart (*Bkc) 100 Units/Ml SUB-Q Not Given TIDWM [facility] Protocol Insulin Aspart 2 - 5 units 12/29/24 21:00 01/08/25 21:37 Insulin Aspart (*Bkc) 100 Units/Ml SUB-Q Not Given HS [facility] Protocol Levothyroxine Sodium 250 mcg 12/21/24 06:30 01/08/25 06:20 Levothyroxine Sodium 125 Mcg Tablet PO Not Given [email or web address] [facility] Levothyroxine Sodium 125 mcg 12/26/24 06:30 01/09/25 05:50 Levothyroxine Sodium 125 Mcg Tablet PO Not Given Mitchell@0630 [facility] Lorazepam 2 mg 01/07/25 14:20 01/09/25 09:26 Lorazepam Inj (*Crx) 2 Mg/Ml Vial IV PUSH 2 mg Q2H PRN Administration Anxiety/Comfort Metoprolol Tartrate 50 mg 01/06/25 14:00 01/09/25 08:00 Metoprolol Tartrate 50 Mg Tab PO Not Given Q6H [facility] Morphine Sulfate 2 mg 01/07/25 14:20 01/09/25 11:35 Morphine Sulfate (*Crx) 2 Mg/Ml Inj IV PUSH 2 mg Q30M PRN Administration COMFORT Multi-Ingred Cream/Lotion/Oil/Oint 1 applic 01/01/25 12:35 01/09/25 08:00 Eucerin Cream 120 Gm Jar TOPICAL Not Given DAILY [facility] Nicotine 1 patch 01/04/25 21:00 01/08/25 20:32 Nicotine (*Pbkc) 21 Mg Patch TRANSDERM Not Given HS [facility] Ondansetron HCl 4 mg 12/17/24 16:18 01/06/25 01:34 Ondansetron Inj 4 Mg/2 Ml Vial IV PUSH 4 mg Q4H PRN Administration Nausea Polyethylene Glycol 17 gm 01/03/25 09:00 01/09/25 08:00 Polyethylene Glycol 3350 17 Gm Powd.Pack PO Not Given QAM [facility] Quetiapine Fumarate 25 mg 12/31/24 21:00 01/08/25 20:31 Quetiapine Fumarate 25 Mg Tablet PO Not Given HS [facility] Sertraline HCl 100 mg 12/18/24 09:00 01/09/25 08:00 Sertraline Hcl 50 Mg Tablet PO Not Given DAILY [facility] Tamsulosin HCl 0.4 mg 01/05/25 21:00 01/08/25 20:31 Tamsulosin Hcl 0.4 Mg Capsule PO Not Given HS [facility] Vitamin D 1,000 units 12/31/24 09:00 01/09/25 08:00 Cholecalciferol 1,000 Units Tablet PO Not Given DAILY [facility] Radiology Results: ITS Impressions Lumbar Spine X-Ray 12/17/24 15:44 IMPRESSION: Anterior loss of volume of L1 which is most likely chronic. MRI evaluation advised. Otherwise, No acute osseous abnormality lumbar spine. Degenerative disc disease at the level of L4-L5. Venous Doppler Study 12/18/24 13:13 IMPRESSION: 1. No deep venous thrombosis. Abdomen Ultrasound 12/18/24 13:18 IMPRESSION: 1. Cholelithiasis. No evidence of acute cholecystitis. 2. Mildly dilated common duct. Renal Ultrasound 12/18/24 13:21 IMPRESSION: 1. Normal kidney sizes. No hydronephrosis. Lumbar Spine MRI 12/18/24 15:23 IMPRESSION: Limited examination secondary to motion artifact. No abnormal signal intensity or contrast enhancement is identified within the vertebral body of L1 to suggest acute traumatic injury. Within the visualized intervertebral disc spaces, moderate degenerative disease is noted, as detailed above. Duplex Scan Lower Extremity Artery 12/18/24 21:35 IMPRESSION: Abnormal peak systolic velocity and waveform morphology suggesting a popliteal or tibioperoneal trunk stenosis. Three-vessel blood flow into the right calf with single vessel blood flow into the right foot (on the submitted images) MRCP 12/21/24 08:48 IMPRESSION: 1. Study terminated at patient request prior to obtaining the normal complement of sequences including the MRCP images and which along with some motion artifact on the obtained sequences moderately limits evaluation. 2. Anasarca with small left and moderate-sized right pleural effusions, small amount of ascites and extensive body wall, as enteric and retroperitoneal edema. 3. Normal-appearing gallbladder with no evident cholelithiasis and with no intra or extrahepatic biliary ductal dilation. Sensitivity for tiny gallstones which were suggested on prior ultrasound is limited by motion artifact. 4. Cardiomegaly. Liver Biopsy Ultrasound 12/22/24 10:51 IMPRESSION: 1. Successful Ultrasound-guided random liver biopsy. Renal Biopsy Ultrasound 12/23/24 10:32 IMPRESSION: 1. Ultrasound-guided random left kidney core needle biopsy. Head CT 12/25/24 17:06 IMPRESSION: No acute intracranial process. Scrotum Ultrasound 01/05/25 15:10 IMPRESSION: Significant soft tissue swelling, without inherent testicular abnormality. Chest X-Ray 01/06/25 17:46 IMPRESSION: Cardiomegaly with cardiac decompensation and pulmonary edema. Superimposed pneumonia is not excluded. Left pleural effusion. Central Venous Line 01/07/25 07:58 IMPRESSION: Fluoroscopy used during central line placement.
[2025-01-09 20:10] VITALS: PULSE 118; RESP 12; O2SAT 89
[2025-01-09 21:00] VITALS: O2SAT 97
[2025-01-09 21:12] VITALS: BP 119/84; PULSE 135; RESP 14; TEMP 36.2; O2SAT 97
[2025-01-10] MEDS: LORazepam INJ (*CRX) 2 MG/ML VIAL IV PUSH ×5 (02:19→13:40)
[2025-01-10] MEDS: MORPHINE SULFATE (*CRX) 2 MG/ML INJ IV PUSH ×4 (02:19→09:38)
[2025-01-10 05:59] VITALS: BP 114/75; PULSE 121; RESP 18; TEMP 36.1; O2SAT 93
[2025-01-10] MEDS: ATROPINE SULFATE 1% OPHTH SOLN 5 ML BOTTLE SUBLINGUAL (09:39)
[2025-01-10 10:35] LABS: Alanine Aminotransferase 27 U/L (6-50); Albumin Level 2.7 g/dL (3.5-5.1); Alkaline Phosphatase 116 U/L (38-126); Anion Gap 9 mmol/L (4-12); Aspartate Amino Transferase 22 U/L (17-59); Bilirubin,Total 1.1 mg/dL (0.2-1.3); Blood Urea Nitrogen 53 mg/dL (9-20); Calcium 7.7 mg/dL (8.4-10.2); Carbon Dioxide 25 mmol/L (22-30); Chloride 104 mmol/L (98-107); Estimated CRCL calculation 28 ml/min; Estimated Glomerular Filt Rate 19; Glucose 61 mg/dL (65-110); Phosphorus 4.6 mg/dL (2.5-4.5); Potassium 5.1 mmol/L (3.4-5.0); Sodium 138 mmol/L (137-145)
[2025-01-10] MEDS: MORPHINE SULFATE (*CRX) 2 MG/ML INJ 4 MG IV PUSH ×3 (10:43→13:40)
--- NOTE | 2025-01-10 18:04 | P.DS_ITS ---
DS: Admitting Diagnosis Discharge Date 01/10/25 Admitting Diagnosis Weakness and overall not feeling well. DS: Discharge Diagnosis Discharge Diagnosis (1) Altered mental status: Code(s): R41.82 - Altered mental status, unspecified Status: Acute Assessment and Plan: * Patient has developed confused since 12/25/2024. He was receiving ativan and haldol prn for agitation * Ammonia negative * ABG unremarkable. B12 normal. TSH as mentioned below. Vit D <12.8 * CT head unremarkable. CXR showing small left and small-mod right pleural effusion with associated atelectasis and/or PNA * UA noted so started empirically on ceftriaxone * BCx (12/25) NGTD. UCx 12/25 negative so Rocephin stopped. * EEG 12/28 - abnormal record due to the absence of a normal background rhythm but without evidence of paroxysmal activity * Stopped all of his sedating mediations and Seroquel added * Mental status better. Continue to hold all sedating medications. Continue Seroquel at night. * Increase activity and try to keep awake most of the day (2) Abnormal transaminases: Code(s): R74.8 - Abnormal levels of other serum enzymes Status: Acute Assessment and Plan: * On admission, LFTs were mildly elevated. Hepatitis panel negative. Abd US showing cholelithiasis and mildly dilated CBD. Liver was normal in appearance. Lipitor held. Repeat levels on 12/20 much worse with AST 1539, ALT 1066, AP 479, normal bili. Lactic acid 1.1. Acet level <10. [place] due to congestion from heart failure * Consider autoimmune with + * IV fluids stopped. GI consulted and appreciate their input. * Patient was able to complete some of the MRCP. This showed anasarca, small left and moderate size right pleural effusion, small amount of ascites, extensive body edema and cardiomegaly. He had a normal appearing gallbladder with no evidence of cholelithiasis no intra or extrahepatic biliary ductal dilatation. Sensitivity was limited. * Status post liver biopsy 12/22/2024: congestive hepatopathy and congestive hepatic fibrosis score 1. * LFTs improving. [place] related to hepatic congestion. Follow. (3) Acute kidney injury: Code(s): N17.9 - Acute kidney failure, unspecified Status: Acute Assessment and Plan: * Patient presents with weakness and may have had underlying PNA. * Cr on admission 4.3. Baseline Cr 2.1-2.9 range. He was started on IV fluids. * Urine eos negative. Eve 42. Total CK 371. Urine prot/Cr 4.7gm consistent with nephrotic syndrome. * Complement normal. Hx of + 1:640. Renal US normal. * Nephrology consulted and appreciate their input. Cryoglobulin negative. * Creatinine was trending up; HD catheter placement 12/22/2024 and was started on hemodialysis. * Renal biopsy 12/23/2024 with advanced diabetic glomerulosclerosis class 4. 50-60% tubular atrophy and interstitial fibrosis. * Last dialysis today 01/03/2025 * UOP poor. Cr rising. * Appreciate nephrology input. Discussed with nephrology. * Tunneled cath being planned. (4) Pneumonia: Code(s): J18.9 - Pneumonia, unspecified organism Status: Acute Assessment and Plan: * Patient presents with weakness after having cold and cough symptoms for 3 weeks. No benefit after 2 Z-packs. * CXR showing bibasilar infiltrates. No fevers or hypoxia. WBC 12K. * He was started on Rocephin and Doxycycline. * WBC normal now. BCx NGTD. MRSA screen negative. * Urine Ag negative. Sputum Cx growing MSSA and yeast. * He completed a 7 day course. Rocephin restarted for possible UTI but UCx negative so stopped. * Follow off abx (last dose of Rocephin was 12/29 at 1215) (5) Heart failure with mildly reduced ejection fraction: Code(s): I50.22 - Chronic systolic (congestive) heart failure Status: Acute Assessment and Plan: * Echo showing severely reduced systolic fxn with EF 25-30% with diastolic dysfunction, mild valve disease and moderate pulmonary HTN. BNP >30K. * CXR showing CMG, bibasilar infiltrates and small pleural effusions. * Entresto and finerenone on hold. Diuretics not listed on home med list. * Holding Entresto. * Monitor UOP, renal fxn, daily weights and fluid balance. (6) Atrial flutter with rapid ventricular response: Code(s): I48.92 - Unspecified atrial flutter Status: Acute Assessment and Plan: * New onset atrial fibrillation. On metoprolol. * On heparin drip for now. Change to Eliquis when able * HR poorly controlled. Advance metoprolol. * Monitor HR (7) Type 2 diabetes mellitus with hyperglycemia, with long-term current use of insulin: Code(s): E11.65 - Type 2 diabetes mellitus with hyperglycemia; Z79.4 - [facility] (current) use of insulin Status: Acute Assessment and Plan: * A1c 7%. The patient's blood glucose was reviewed * Patient was on an insulin pump at home. Concern patient was unable to handle his pump here so this was held. * Glucose remains well controlled off the insulin pump despite his improved eating habit * Continue AccuCheks covering with sliding scale. Hypoglycemia protocol available as needed. * Continue to monitor (8) Chronic kidney disease, stage 4 (severe): Code(s): N18.4 - Chronic kidney disease, stage 4 (severe) Status: Acute Assessment and Plan: As above (9) Status post above-knee amputation of left lower extremity: Code(s): Z89.612 - Acquired absence of left leg above knee Status: Acute Assessment and Plan: * Patient with known PAD. Venous doppler RLE negative for DVT. * Arterial doppler RLE suggestive of a popliteal or tibioperoneal trunk stenosis. There is three-vessel blood flow into the right calf with single vessel blood flow into the right foot. * Continue Zetia and ASA. Resume Lipitor when able. Plan # Hypothyroidism: Review of Endocrine note from 11/12 showing he was to skip the Friday Synthroid dose. TSH is 46.4. Free T4 is low-normal at 0.96. Total T3 is 0.5. Patient is currently on 250 mcg daily except no meds on Friday. Suspect the skipped dose has resulted in the change in his thyroid panel. Will adjust to 250mcg daily except added 125mcg on Sundays. # Tobacco dependence: Patient was educated about the benefits of smoking cessation # urinary retention status post cystoscopy with passive dilation of mild bulbar narrowing. Complex Hernandez catheter placement with 16 Yi coude on 12/20/2024. Maintain Hernandez catheter until improvement in volume status and mobility. # Low back pain - Lumbar MRI performed but no acute finding seen on limited imaging due to motion artifact. # meth abuse - Possible meth abuse to explain some of his mental status confusion prior to admission. Will discuss when patient more awake and alert. 64 y/o male with CKD with worsening urine output and serum BUN and creatinine are rising, patient developed agitation and was treated with Ativan and Haldol as well as receiving pain medication as needed however patient became confused and suspect most likely 2/2 sedating medications he had been receiving, these medications are on hold now patient is given Seroquel for sleep, patient is seen by his biomedical manager BOTTOM CEMENTER-HD was started on 12/21 and has temporary cath, patient is seen by surgery service and was planned to have tunnel catheter today however it is postponed until tomorrow, today patient is little more oriented and cooperative but upset as patient wish to go home, patient is schedule to have tunneled dialysis catheter today, will monitor and follow up. before patient can be discharge patient will need outpatient dialysis arrangement with a dialysis center, patient also developed new onset A.Fib with RVR seen by meng diologist started on metoprolol now rate is under control however patient blood pressure is elevated and metoprolol was increased, being anticoagulated with heparin due to pending surgery, may switch to oral anticoagulation. Patient remain confused and he again pulled out his dialysis tunnel catheter which just was placed yesterday this is the second catheter he pulled out, today patient POA and assurance services manager health care day a meeting and I was present. Patient care manger has placed DNR order and placed patient under comfort measure and no medical intervention. I have placed DNR and comfort measures order for the patient. patient remains clinically stable, will continue to monitor, I did explain to POA on 01/07 that without dialysis his potassium levels will rise and patient heart will stop and patient may . patient remains clinically stable, will continue to monitor. # DVT prophylaxis - Heparin # Code status - full DS: Summary Hospital Course Hospital Course: 64 y/o male with CKD with worsening urine output and serum BUN and creatinine are rising, patient developed agitation and was treated with Ativan and Haldol as well as receiving pain medication as needed however patient became confused and suspect most likely 2/2 sedating medications he had been receiving, these medications are on hold now patient is given Seroquel for sleep, patient is seen by his biomedical manager BOTTOM CEMENTER-HD was started on 12/21 and has temporary cath, patient is seen by surgery service and was planned to have tunnel catheter today however it is postponed until tomorrow, today patient is little more oriented and cooperative but upset as patient wish to go home, patient is schedule to have tunneled dialysis catheter today, will monitor and follow up. before patient can be discharge patient will need outpatient dialysis arrangement with a dialysis center, patient also developed new onset A.Fib with RVR seen by warp yarn sorter started on metoprolol now rate is under control however patient blood pressure is elevated and metoprolol was increased, being anticoagulated with heparin due to pending surgery, may switch to oral anticoagulation. Patient remain confused and he again pulled out his dialysis tunnel catheter which just was placed yesterday this is the second catheter he pulled out, today patient POA and assurance services manager health care day a meeting and I was present. Patient care manger has placed DNR order and placed patient under comfort measure and no medical intervention. I have placed DNR and comfort measures order for the patient. patient remains clinically stable, will continue to monitor, I did explain to POA on 01/07 that without dialysis his potassium levels will rise and patient heart will stop and patient may . patient remains clinically stable, will continue to monitor. Patient family had decided about hospice care, will discharge patient today to be admitted under hospice care. Time Spent with Patient Time attestation: Total time spent providing and/or coordinating discharge services: Exam Narrative: Patient is comfortable, NAD HEENT: eyes are clear and none icteric LUNGS:CTA HEART: RR S1S2 ABD: BS+, Soft and nontender Lower extremities: no edema SKIN: nonjaundiced Neuro: grossly intact. DS: Data Data Completed and Pending Completed studies during hospitalization: Pending at discharge 12/22/24 10:14 Surgical [PTH] Routine 12/23/24 10:14 Surgical [PTH] Routine Labs on day of discharge: Labs from last 24 hours 01/10/25 10:14 Sodium 138 Potassium 5.1 H Chloride 104 Carbon Dioxide 25 Anion Gap 9 BUN 53 H D Creatinine 3.25 H Estim Creat Clear Calc 28 Estimated GFR 19 L Glucose 61 L Calcium 7.7 L Phosphorus 4.6 H Total Bilirubin 1.1 AST 22 ALT 27 Alkaline Phosphatase 116 Total Protein 5.0 L Albumin 2.7 L Discharge Plan Discharge Consulting providers: Aime Kebede; Ronn Green; Meir Kim; Aleksey Duff; Lety Aviles; Elie Quan; Binu Glaser; Doreen Diallo; Jose Ham; Joselito Cardoso; Stephanie Ceron; Declan Oliva; [place]; Selene Lucas; Hortensia Jarvis; Janine Villanueva; Bethel Jay; Curt Pacheco; Rik Britt; Devin Wilson; Georgie Brown; Farooq Steven; Ephraim Corona; Minor Resendez; Poonam Jarrett; Layne Riojas; Eugene Thomas; Gilbert,Dani Alvarez; eTre Arguelles; Modesto Nowak; Pancho Segal; Helio Galindo Discharging Clinician: Alessia Gonzales Patient Disposition: Home Activity: as tolerated Diet: as tolerated Patient Instructions: Antibiotic Form Patient Language: French Stand Alone Forms: General Discharge Information Follow-up/Referrals: Amilcar Womack MD [Primary Care Provider] - Discharge Medications: No Action No Home Medications Date of admission: 12/17/24 16:18 Primary Care Provider: Amilcar Womack Admitting Provider: Agustin Butler Attending physician on admission: Alessia Gonzales Condition: Stable
== END 2025-01-10 15:20 | disposition hospice, inpatient (51) | DRG 673 ==
LOC: ANHED 16:15 → ANHIMU 16:55 → ANH3MEDSUR 12-19 18:30
PROVIDERS: Internal Medicine; Internal Medicine Nephrology; Physician Assistant; Psychiatry & Neurology Neurology; Surgery; Admitting Provider Internal Medicine; Emergency Provider Family Medicine; PCP Family Medicine; Visit Provider Family Medicine
PROC: (CPT 36908; principal; 2025-01-04 13:00)
PROC: 0JH63XZ Insertion of Tunneled Vascular Access Device into Chest Subcutaneous Tissue and Fascia, Percutaneous Approach (ICD-10-PCS; CPT 36908; principal; 2025-01-06 15:30)
DX: N17.9 Acute kidney failure, unspecified (principal); G93.41 Metabolic encephalopathy; J18.9 Pneumonia, unspecified organism; J96.00 Acute respiratory failure, unspecified whether with hypoxia or hypercapnia; I13.0 Hypertensive heart and chronic kidney disease with heart failure and stage 1 through stage 4 chronic kidney disease, or unspecified chronic kidney disease; I48.92 Unspecified atrial flutter; I47.19 Other supraventricular tachycardia; I50.22 Chronic systolic (congestive) heart failure; R44.3 Hallucinations, unspecified; K76.1 Chronic passive congestion of liver; E11.22 Type 2 diabetes mellitus with diabetic chronic kidney disease; N18.4 Chronic kidney disease, stage 4 (severe); E78.5 Hyperlipidemia, unspecified; I73.9 Peripheral vascular disease, unspecified; E03.9 Hypothyroidism, unspecified; E11.42 Type 2 diabetes mellitus with diabetic polyneuropathy; G89.29 Other chronic pain; M25.512 Pain in left shoulder; M25.511 Pain in right shoulder; D63.1 Anemia in chronic kidney disease; E86.0 Dehydration; I25.5 Ischemic cardiomyopathy; F17.210 Nicotine dependence, cigarettes, uncomplicated; T50.995A Adverse effect of other drugs, medicaments and biological substances, initial encounter; E87.5 Hyperkalemia; I25.10 Atherosclerotic heart disease of native coronary artery without angina pectoris; L29.9 Pruritus, unspecified; R33.9 Retention of urine, unspecified; Z79.4 Long term (current) use of insulin; Z89.612 Acquired absence of left leg above knee; Z86.73 Personal history of transient ischemic attack (TIA), and cerebral infarction without residual deficits; Z89.422 Acquired absence of other left toe(s); E66.9 Obesity, unspecified; Z68.31 Body mass index [BMI] 31.0-31.9, adult; R45.1 Restlessness and agitation; E11.65 Type 2 diabetes mellitus with hyperglycemia; I48.0 Paroxysmal atrial fibrillation; Z66 Do not resuscitate; Z51.5 Encounter for palliative care
CPT/HCPCS: 36415; 36600; 43752; 47000; 50200; 70450; 71045; 71046; 72100; 72158; 74181; 76376; 76705; 76775; 76870; 76942; 77001; 80048; 80053; 80069; 80074; 80076; 80143; 81001; 82140; 82306; 82550; 82570; 82595; 82607; 82728; 82746; 82805; 82948; 83036; 83090; 83520; 83540; 83550; 83605; 83735; 83880; 83921; 83930; 83935; 84100; 84133; 84156; 84300; 84439; 84443; 84480; 84540; 85018; 85025; 85027; 85610; 85652; 85730; 85999; 86036; 86060; 86140; 86160; 86162; 86704; 86706; 86738; 86850; 86900; 86901; 87040; 87070; 87086; 87181; 87205; 87340; 87449; 87637; 87641; 87899; 88300; 88307; 88312; 88313; 88329; 93005; 93926; 93971; 93976; 95816; 96361; 96374; 96375; 96376; 97162; 97165; 97530; 97535; 99285; A9270; A9579; C1750; C1751; C1752; C1769; C8929; G0257; J0690; J0696; J1200; J1630; J1644; J1815; J2004; J2060; J2270; J2359; J2371; J2405; J2704; J7030; J7040; P9047; Q5105; Q9957

== ENCOUNTER 2025-01-10 15:30 | HOS | payer MEDICARE, MEDICAID, SELFPAY ==
--- NOTE | 2025-01-10 15:44 | P.HP_ITS ---
H&P: HPI History of Present Illness Date/Time: 01/10/25 15:44 Chief Complaint: Uncontrolled restlessness and pain Narrative: 64-year-old gentleman was admitted [facility] December 17 with increasing weakness and dyspnea. He had been able to transfer himself from bed to wheelchair but was no longer able to do so. In his creatinine had increased from a baseline of 2.1 a couple of months prior to 4.35 on admission. He was noted to have bibasilar infiltrates on chest x-ray and was treated empirically with a 7 day course of ceftriaxone and doxycycline. This continued to increase to 5.67 prior to initiation of dialysis. Patient also had echocardiogram that showed worsening of his ejection fraction to 25%. He had the metabolic encephalopathy restlessness pain confusion. He had a tunneled catheter placed for long-term dialysis but pulled out about 15 minutes and show after it was placed. Last PO intake was on 01/08 and was associated with choking. Because of this and his worsening poor functional status, pain, restlessness, and mental status his family opted for inpatient hospice care for symptom management. Review of Systems Review of Systems: ROS unobtainable: Yes unobtainable due to medical condition PMFSH Past Medical History Medical History Metabolic encephalopathy Tobacco dependence Diastolic dysfunction Heart failure with mildly reduced ejection fraction Albuminuria Diabetic peripheral neuropathy Insulin dependent type 2 diabetes mellitus Stage 3b chronic kidney disease Dyslipidemia Peripheral vascular disease Hypothyroidism Essential hypertension Chronic, continuous use of opioids Chronic pain of both shoulders Surgical History Surgical History History of left above knee amputation History of amputation of lesser toe of right foot Family History Family History Father Family history of diabetes mellitus in first degree relative Hypertension Family history of coronary artery disease Mother Family history of diabetes mellitus in first degree relative Sibling Family history of diabetes mellitus in first degree relative Other Diabetes mellitus Family history of cardiovascular disease Social History Social History Social History: Surrogate medical decision maker: Cristal Frye, friend. Code status: DNR Smoking packs per day: 1.5 Smoking cigarettes per day: 30.0 Years smoked: 50 Smoking pack-years: 75.00 Smoking status: Current every day smoker Tobacco type: cigarettes Second hand tobacco smoke exposure: No Alcohol intake: former Substance use: current Substance use type: marijuana Do You Feel Safe in your Home?: Yes Lack of Transportation: No Lack of Food: Never True Current Housing: I Have Housing Concerned About Future Housing: No Difficulty Paying Gas/Electric Bills: No Difficulty Paying for Meds: No Currently Unemployed: No Education: High School Diploma/GED Difficulty w/ Childcare or Family Care: No Living arrangements: with family Additional living arrangements comments: girlfriend Occupation/Education: other Spiritual care concerns: No Meds Home Medications and Allergies Allergies Allergy/AdvReac Type Severity Reaction Status Date / Time vancomycin Allergy Severe Anaphylactic Verified 01/06/25 15:30 Shock Exam Narrative: SKIN: Dry, stage 2 ulcer about 1/2 cm right dorsal MCP HEENT: Sclerae nonicteric, pharyngeal mucosa pink and intact NECK: No JVD CHEST: Clear to auscultation. Normal effort. HEART: NL S1/S2, regular, no murmur ABDOMEN: BShypoactive, soft, nontender, no mass, no bruits EXTREMITIES: No edema NEUROLOGIC: CN intact and symmetric to inspection. MUSCULOSKELETAL: Left AKA PSYCH: Drowsy, arouses with some difficulty, does not follow commands, oriented to person only Assessment and Plan Assessment and plan (1) Hospice care: Code(s): Z51.5 - Encounter for palliative care Status: Acute Assessment and Plan: * Meet inpatient hospice criteria due to requiring continuous IV hydromorphone and scheduled IV diazepam for control of pain and restlessness * P.r.n. palliative regimen ordered (2) Cardiomyopathy: Code(s): I42.9 - Cardiomyopathy, unspecified Status: Acute (3) PVD (peripheral vascular disease): Code(s): I73.9 - Peripheral vascular disease, unspecified Status: Acute (4) Type 2 diabetes mellitus with hyperglycemia, with long-term current use of insulin: Code(s): E11.65 - Type 2 diabetes mellitus with hyperglycemia; Z79.4 - FPC (current) use of insulin Status: Acute (5) Hypothyroidism: Code(s): E03.9 - Hypothyroidism, unspecified Status: Acute (6) Transaminitis: Code(s): R74.01 - Elevation of levels of liver transaminase levels Status: Resolved (7) Acute kidney injury: Code(s): N17.9 - Acute kidney failure, unspecified Status: Acute (8) Anemia: Code(s): D64.9 - Anemia, unspecified Status: Acute (9) Encephalopathy: Code(s): G93.40 - Encephalopathy, unspecified Status: Acute
[2025-01-10 16:00] VITALS: BP 101/68; PULSE 122; RESP 14; TEMP 36.5; O2SAT 89
[2025-01-10] MEDS: diazePAM INJ (*CRX) 10 MG/2 ML SYRINGE 5 MG IV PUSH ×2 (16:00→17:32)
[2025-01-10 16:40] VITALS: PULSE 122; RESP 20
[2025-01-10] MEDS: HYDROmorphone HCL/PF (*CRX) 50 MG in SODIUM CHLORIDE 0.9% IV 95 ML IV CONT (16:40)
--- OUTSIDE RECORDS SUMMARY | 2025-01-10 17:26 | XMS_ITS | Clinical Summary ---
Author Organization [facility] Care Team Providers Care Assembly Line Upholsterer Name Role Phone Unavailable Primary Care Provider [...]
--- OUTSIDE RECORDS SUMMARY | 2025-01-10 17:26 | XMS_ITS | Referral Summary ---
Author Organization [facility] Address [address] [place] [address] Phone Care Team Providers Care Property Utilization Manager Name Role Phone Adair Rascon MD Unavailable Jane Rodriguez MD, Juan Duff Unavailable [phone] Amilcar Womack MD Primary Care Provider [phone] Encounters Date Type Department Care Team Description 12/29/2024 Orders Only [facility] Cardiology [address] [place] [address] Ronn Green MD 12/27/2024 Orders Only [facility] Cardiology [address] [place] [address] Ronn Green MD from Last 3 Months Allergies Active Allergy Reactions Criticality Noted Date [...] needed for pain 3 Active Dexcom G7 Sugar Grinder misc 1 each continuously 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 Assessment & Plan (11/06/2021 11:43 AM 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): Hba1c was Lab Results Component Value Date [...] pt. Assessment & Plan (11/06/2021 11:43 AM 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): Check lipids Continue Lipitor Assessment & Plan (05/17/2021 10:49 AM CDT): Check lipid panel today Assessment & Plan (01/25/2021 3:46 PM CDT): At goal on current medications. Continue statin therapy. Assessment & Plan (06/22/2020 12:49 PM CDT): At goal on current medications. Continue statin therapy. Assessment & Plan (11/18/2019 4:51 PM 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): Goal of treatment , LDL cholesterol less [...] plan. Assessment & Plan (11/18/2019 4:51 PM 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): Goal blood pressure is less than 140/85 [...] 05/13/2019 Assessment & Plan (11/18/2019 10:36 AM 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): Your Hba1c today was: Lab Results Component Value Date HGBA1C 11.1 11/18/2019 meaning a 3 month average sugar of : 284 Your goal hba1c is under 7.0 to prevent half-way diabetes complications ( eye , kidney and [...] goal hba1c is under 7.0 to prevent half-way diabetes complications ( eye , kidney and [...] goal hba1c is under 7.0 to prevent keno terminal operator diabetes complications ( eye , kidney and [...] on file Legal Sex Male 12:13 PM 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 Gender Identity Not on file Sexual Orientation [...] on file Medical Devices Implanted Type Area Cutter Apprentice Hand Device Identifier Shelf Expiration Date Model / Serial / [facility] Device Closure Vascade Od5 Fr Femoral Artery [id number] - [id number] Implanted:Qty: 1 on 03/17/2024 by Sangeetha Coronado MD at [facility] [employer] Not iT [facility] 10/14/2025 [id number] / / [id number] Procedures Procedure Name Priority Date/Time Associated Diagnosis Comments CARDIOLOGY DOCUMENT SCAN Routine 12/27/2024 2:39 PM CDT CARDIOLOGY DOCUMENT SCAN Routine 12/25/2024 5:26 PM CDT CARDIOLOGY DOCUMENT SCAN Routine 12/21/2024 5:25 PM CDT CARDIOLOGY DOCUMENT SCAN Routine 12/20/2024 5:23 PM CDT COMPREHENSIVE METABOLIC PANEL Routine 03/12/2024 10:45 AM [...] Recently Relevant to Health Maintenance Results * Cardiology Document Scan (12/27/2024 2:39 PM CDT) Anatomical Region Laterality Modality Other Result [facility] Ronn Green MD CV CARDIAC SERVICES PROCEDURES F inal Result * Cardiology Document Scan (12/25/2024 5:26 PM CDT) Anatomical Region Laterality Modality Other Curt Pacheco MD CV CARDIAC SERVICES PROC EDURES Final Result * Cardiology Document Scan (12/21/2024 5:25 PM CDT) Anatomical Region Laterality Modality Other Declan Oliva MD CV CARDIAC SERVICES PRO CEDURES Final Result * Cardiology Document Scan (12/20/2024 5:23 PM CDT) Anatomical Region Laterality Modality Other Ronn Green MD CV CARDIAC SERVICES PROCEDURES F inal Result * (ABNORMAL) Comprehensive metabolic panel (03/12/2024 10:45 AM CDT) [facility] Glucose 158(H) 70 - 99 mg/dL [facility] [...] 03/13/2024 8:15 AM CDT Performed at: - [facility] [id number] Joint Creaser: Dustin Augustine PhD, Phone: [phone] Declan Oliva MD LAB BLOOD ORDERABLES Fi nal [facility] - 01 * POCT lipid panel (03/05/2024 11:43 AM CDT) Cholesterol, POC 127 mg/dL Comment:GLU = 157 [...] % Estimated Average Glucose 217 mg/dL [facility] Comment: The ADA recommends reporting an estimated Average Glucose (eAG) with all Hemoglobin A1c results using the equation derived from a study of 507 normal and diabetic adults. Minority populations were underrepresented and children were not included. (Diabetes Care 31:2554-6728, 2008). The eAG is not equivalent to a fasting glucose. Blood 02/11/2024 3:51 PM CDT 02/11/2024 3:54 PM CDT Brenda Hernandez MD LAB BLOOD ORDERABLES Final Re sult Performing Organization Address [facility] Co de Phone Number [facility] MUNROE [address] Department [place] [address] * (ABNORMAL) Albumin Creatinine Ratio, Urine (12/26/2022 3:59 PM CDT) Albumin Ur 1,168.0 mg/L [facility] Comment: Interpretive Data No reference range established. Current interpretive data was last revised 2019. Creatinine Ur 54.9 mg/dL [facility] Comment: Interpretive Data No reference range established. Current interpretive data was last revised 2019. Albumin Creatinine Ratio, Ur 2,128(H) 1 - 29 mg/g [facility] Urine 12/26/2022 3:59 PM CDT 12/26/2022 7:11 PM CDT Leyla Celestin MD LAB URINE ORDERABLES Final Resul t Performing Organization Address [facility] Co de Phone Number [facility] MUNROE [address] [place] [address] from Last 3 Months or Most Recently Relevant to Health Maintenance Insurance IDPA [facility] MEDICARE ADVANTAGE [facility] MEDIC[facility] ADV[facility] IDPA Advance Directives For more information, please contact: [phone] * Full Code (Latest Code Status on File) Date Activated Date Inactivated Comments 03/17/2024 10:40 AM 03/17/2024 4:56 PM * Full Code Date Activated Date Inactivated Comments 02/11/2024 1:47 AM 02/12/2024 5:02 PM * Full Code Date Activated Date Inactivated Comments 04/19/2020 12:49 PM 04/19/2020 6:47 PM Care Teams Property Utilization Manager Relationship Specialty Start Date End Date Amilcar Womack MD [address] [address] PCP - General Family Medicine 02/05/24 [place] [address] [address] [address] Consulting Physician Internal Medicine 04/19/20 [place] [address] [address] [address] Surgeon General Surgery 04/19/20
--- OUTSIDE RECORDS SUMMARY | 2025-01-10 17:26 | XMS_ITS | Encounter Summary ---
Author Organization [facility] Address [address] [place] [address] Care Team Providers Care Malariologist Name Role Phone Adair Rascon MD Unavailable [phone] Jane Rodriguez MD, Juan Duff Unavailable [phone] Yeison Feliz MD Primary Care Provider Amilcar Womack MD Primary Care Provider [phone] Encounter Details Date Type Department Care Team (Late st Contact Info) Description 09/03/2022 Telephone [facility] Transplant Heart [id number] [place] [address] Lacie Lucas Social History Tobacco Use Types [...] on file Legal 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 Gender Identity Not on file Sexual Orientation Not on file documented as of this encounter Plan of Treatment Not on file documented as of this encounter Visit Diagnoses Not on filedocumented in this encounter Care Teams Malariologist Relationship Specialty Start Date End Date Yeison Feliz MD [address] [facility] [address] [place] [address] PCP - General Family Medicine 11/01/21 02/04/24 Amilcar Womack MD [address] [place] [address] PCP - General Family Medicine 02/05/24 [place] [address] [address] [address] Consulting Physician Internal Medicine 04/19/20 [place] [address] [address] [address] Surgeon General Surgery 04/19/20 documented as of this encounter
--- OUTSIDE RECORDS SUMMARY | 2025-01-10 17:26 | XMS_ITS | Data Portability ---
Author Organization [place] [facility] [place] Address [address] [place] [address] Assessment Encounter Date Assessment Date Assessment LastModified [...] used during this encounter to provide a [id number] interactive encounter. Components of this encounter are a culmination of visual and patient-assisted findings. [email or web address] Not available 2023 15:13:18 09/05/2023 09/05/2023 Pt [...] By Organization Details Last Modified Time 2023 [id number] I have discussed the risks and benefits [...] being evaluated, and answering of all questions. [email or web address] Not available 2023 15:13:24 09/05/2023 [id number] I have discussed the risks and benefits [...] SOUZA PA-C [address], [address], [place], [address], [facility] - [facility] 2023 15:13:44 Imaging Results None recorded. [...] Not Available N ot Available Dexcom G7 Budget Officer USE TO TEST CONTINUOUSL Y active Not [...] Organization Details LastModified Time Mother Diabetes mellitus [email or web address] Not available 09/01 15:13:44 Brother Diabetes mellitus [email or web address] Not available 09/01 15:13:44 Sister Diabetes mellitus [email or web address] Not available 09/01 15:13:44 Father Diabetes mellitus [email or web address] Not available 09/01 15:13:44 Medical History Condition Response Arthritis Y Past Encounters Encounter ID Performer Location Encounter Start Date Encounter Closed Date Diagnosis/Indication Diagnosis SNOMED-CT Code Diagnosis ICD10 Code Diagnosis Note [id number] PRECIOUS SOUZA PA-C [facility] [address] [place] [address] 2023 15:12:05 2023 16:44:03 Chronic pain 19457464 G89.29 continue seeing your specialist s and primary care provider. patient agreed with plan and verbalized understand ing. [id number] [facility] [address] [place] [address] 09/05/2023 11:10:39 09/05/2023 11:29:42 Chronic pain [id number] G89.29 Health Concerns Section Related Observation LastModified by Organization Detai ls LastModified Time None Recorded Concern Status LastModified by Organization Details LastModified Time None Recorded Advance Directives Directive None Recorded Payers Encounter Date Sequence Insurance Name Policy Number Policy Ashre Covered Member ID Asher Member ID Guarantor Name 2023 1 [facility] (MEDICARE REPLACEMENT/A DVANTAGE - PPO) [id number] Jose Castroehaus [id number] Jose Mckinney 09/05/2023 1 [facility] (MEDICARE REPLACEMENT/A DVANTAGE - PPO) [id number] Jose Castroehaus [id number] Jose Mckinney Notes Date Note Type Note [...] extremity numbness/weakness. PRECIOUS SOUZA PA-C [address], [place], [address], [place] - [facility] 2023 [...] MIKE ESQUIVEL [address], [address], [place], [address], [place] - [facility] 09/05/2023 11:12:50
--- OUTSIDE RECORDS SUMMARY | 2025-01-10 17:26 | XMS_ITS | Clinical Summary ---
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 Assessment & Plan (11/06/2021 11:43 AM LEGAL DOCUMENT ASSISTANT): Hba1c was Lab Results Component Value Date [...] pt. Assessment & Plan (11/06/2021 11:43 AM LEGAL DOCUMENT ASSISTANT): Check lipids Continue Lipitor Assessment & Plan (05/17/2021 10:49 AM CDT): Check lipid panel today Assessment & Plan (01/25/2021 3:46 PM CDT): At goal on current medications. Continue statin therapy. Assessment & Plan (06/22/2020 12:49 PM CDT): At goal on current medications. Continue statin therapy. Assessment & Plan (11/18/2019 4:51 PM LEGAL DOCUMENT ASSISTANT): Goal of treatment , LDL cholesterol less [...] plan. Assessment & Plan (11/18/2019 4:51 PM LEGAL DOCUMENT ASSISTANT): Goal blood pressure is less than 140/85 [...] 05/13/2019 Assessment & Plan (11/18/2019 10:36 AM LEGAL DOCUMENT ASSISTANT): Your Hba1c today was: Lab Results Component [...] goal hba1c is under 7.0 to prevent long term care phlebotomist diabetes complications ( eye , kidney and [...] goal hba1c is under 7.0 to prevent long term care phlebotomist diabetes complications ( eye , kidney and [...] request a DEXCOM , continuous glucose monitoring Encounters Date Type Department Care Team Description 12/29/2024 Orders Only [facility] Cardiology [address] [place] [address] Ronn Green MD 12/27/2024 Orders Only [facility] [address] [place] [address] Ronn Green MD from Last 3 Months Surgical History Surgery Date Site/Laterality Comments HERNIA [...] on file Legal Sex Male 12:13 PM LEGAL DOCUMENT ASSISTANT Gender Identity Not on file Sexual Orientation [...] Creatinine Ratio, Urine 12/27/2023 12/26/2022, 11/06/2021, 11/25/2019 Hemoglobin A1C 08/13/2024 02/11/2024, 04/0 02/2023, 05/23/2022, Additional history exists Foot Exam 02/10/2025 02/11/2024, 04/0 02/2023, 11/06/2021, Additional history exists Lipid Panel 03/05/2025 03/05/2024, 04/0 02/2023, 11/06/2021, Additional history exists eGFR 03/12/2025 03/12/2024, 01/21, 02/10/2024, Additional history exists Influenza Vaccine (Season Ended) 2025 08/05/2018, 06/16/2017, 05/23/2017, Additional history exists Medical Devices Implanted Type Area Wool Hat Forming Machine Tender Device Identifier Shelf Expiration Date Model / Serial / Lot [employer] Device Closure Vascade Od5 Fr Femoral Artery [id number] - [id number] Implanted:Qty: 1 on 03/17/2024 by Sangeetha Coronado MD at [facility] 10/14/2025 [id number] / / [id number] Procedures Procedure Name Priority Date/Time Associated [...] hyperglycemia, with long-term current use of insulin ([facility]) from Last 3 Months or Most Recently [...] Comprehensive metabolic panel (03/12/2024 10:45 AM CDT) Pathologist [facility] Glucose 158(H) 70 - 99 mg/dL [...] - 03/13/2024 8:15 AM CDT Performed at: 01 - [address] [id number] Blocking Machine Tender: Dustin Augustine PhD, Phone: [phone] Declan Oliva MD LAB BLOOD ORDERABLES Fi nal Result [facility] - 01 * POCT lipid panel (03/05/2024 11:43 AM CDT) [facility] Cholesterol, POC 127 mg/dL Comment:GLU = 157 HDL, POC 38 mg/dL Triglycerides, POC 75 mg/dL LDL Cholesterol POC 74 mg/dL Chol/HDL Ratio, POC 1.9 Non-HDL Cholesterol, POC 89 mg/dL Cholesterol Total, POC 127 mg/dL Capillary blood 03/05/2024 1 1:43 AM CDT Declan Oliva MD POINT OF CARE TEST ORDE RABLES Final Result * (ABNORMAL) Hemoglobin A1c (02/11/2024 3:51 PM CDT) [facility] Hgb A1C 9.2(H) 4.0 - 5.6 % Estimated Average Glucose 217 mg/dL [facility]RO[facility] Comment: The ADA recommends reporting an estimated Average Glucose (eAG) with all Hemoglobin A1c results using the equation derived from a study of 507 normal and diabetic adults. Minority populations were underrepresented and children were not included. (Diabetes Care 31:7612-5831, 2008). The eAG is not equivalent to a fasting glucose. Blood 02/11/2024 3:51 PM CDT 02/11/2024 3:54 PM CDT Brenda Hernandez MD LAB BLOOD ORDERABLES Final Re sult Performing Organization Address [facility] Co de Phone Number [facility] [address] Department [place] [address] * (ABNORMAL) Albumin Creatinine Ratio, Urine (12/26/2022 3:59 PM CDT) Albumin Ur 1,168.0 mg/L [facility] Comment: Interpretive Data No reference range established. Current interpretive data was last revised 2019. Creatinine Ur 54.9 mg/dL [facility] Comment: Interpretive Data No reference range established. Current interpretive data was last revised 2019. Albumin Creatinine Ratio, Ur 2,128(H) 1 - 29 mg/g [facility] Urine 12/26/2022 3:59 PM CDT 12/26/2022 7:11 PM CDT Leyla Celestin MD LAB URINE ORDERABLES Final Resul t Performing Organization Address [facility] de Phone Number VENA[facility]IO [address] [address] [place] [address] from Last 3 Months or Most Recently Relevant to Health Maintenance Insurance IDPA [facility] MEDICARE ADVANTAGE [facility] MEDICARE ADVANTAGE [facility] MEDICARE ADVANTAGE IDPA Advance Directives For more information, please contact: [phone] * Full Code (Latest Code Status on File) Date Activated Date Inactivated Comments 03/17/2024 10:40 AM 03/17/2024 4:56 PM * Full Code Date Activated Date Inactivated Comments 02/11/2024 1:47 AM 02/12/2024 5:02 PM * Full Code Date Activated Date Inactivated Comments 04/19/2020 12:49 PM 04/19/2020 6:47 PM Care Teams Shank Maker Relationship Specialty Start Date End Date Amilcar Womack MD [address] [address] PCP - General Family Medicine 02/05/24 [place] [address] [address] [address] Consulting Physician Internal Medicine 04/19/20 [place] [address] [place] [address] Surgeon General Surgery 04/19/20
[2025-01-10] MEDS: HYDROmorphone HCL INJ (*CRX) 2 MG/ML VIAL 0.5 MG IV PUSH (17:30)
[2025-01-10 20:00] VITALS: BP 121/82; PULSE 120; RESP 18; TEMP 36.9; O2SAT 93
[2025-01-11] MEDS: diazePAM INJ (*CRX) 10 MG/2 ML SYRINGE 5 MG IV PUSH ×2 (02:12→08:05)
[2025-01-11 08:00] VITALS: BP 66/45; PULSE 60; RESP 14; TEMP 36.2; O2SAT 90
[2025-01-11] MEDS: GLYCOPYRROLATE INJ (*SP) 0.2 MG/ML VIAL 0.1 MG IV PUSH (08:04)
--- NOTE | 2025-01-11 12:50 | PC.NURSE ---
Patient at 1246.
--- NOTE | 2025-01-15 09:49 | P.DN_ITS ---
Discharge Summary Date and Time Date of : 01/11/25 Time of : 12:46 Provider Pronounced By: 2 RNs Name of First RN That Pronounced: Dai Davis RN Name of Second RN That Pronounced: Jacquie Isaacs RN Probable Cause of Probable Cause of : Acute on chronic kidney failure Summary Hospital Course: Admitted to inpatient hospice service for symptom managment. Medications were titrated to comfort. Mr. Mckinney peacefully. Additional Data Confirmation of as documented by pronouncing clinician: Pupillary Reflex, Palpable Pulses, Response to Stimuli, Heart Tones and Breath Sounds Name of Provider Notified: Dr. Pretty Time Provider Notified: 13:00 Provider Requests Autopsy: No Family Requests Autopsy: No Automation Control Integrator Notified: Yes Date [facility] Notified of : 01/11/25 Time [facility] Notified of : 13:05
== END 2025-01-11 12:46 | disposition expired | DRG 951 ==
PROVIDERS: Admitting Provider Internal Medicine; PCP Family Medicine; Visit Provider Internal Medicine
DX: Z51.5 Encounter for palliative care (principal); G93.41 Metabolic encephalopathy; N17.9 Acute kidney failure, unspecified; I13.0 Hypertensive heart and chronic kidney disease with heart failure and stage 1 through stage 4 chronic kidney disease, or unspecified chronic kidney disease; I50.22 Chronic systolic (congestive) heart failure; I42.9 Cardiomyopathy, unspecified; N18.32 Chronic kidney disease, stage 3b; E11.22 Type 2 diabetes mellitus with diabetic chronic kidney disease; E11.51 Type 2 diabetes mellitus with diabetic peripheral angiopathy without gangrene; E03.9 Hypothyroidism, unspecified
CPT/HCPCS: A9270; J1171; J1596; J3360